=== PATIENT | female | born 1940 | race African-American/Black ===

== ENCOUNTER 2016-12-22 14:42 | Inpatient (IN) | payer OTHER ==
[2016-12-22 15:03] VITALS: BMI 39.8
[2016-12-22] MEDS ORDERED: ONDANSETRON 4 MG/2 ML VIAL IVPUSH ONE ×3 (15:27→21:09)
[2016-12-22] MEDS ORDERED: morphine CARPU-JECT 2 MG/1 ML DISP.SYRIN IVPUSH ONE ×2 (15:27→17:30)
[2016-12-22] MEDS ORDERED: SODIUM CHLORIDE 1,000 ML IV STA ×2 (15:27→17:31)
[2016-12-22] MEDS ORDERED: PANTOPRAZOLE SODIUM 40 MG in SODIUM CHLORIDE 100 ML IVPB ONE (15:27)
[2016-12-22] MEDS ORDERED: PANTOPRAZOLE SODIUM 100 ML IVPB ONE (15:32)
[2016-12-22] MEDS ORDERED: morphine CARPU-JECT 2 MG/1 ML DISP.SYRIN ONE ×3 (15:32→17:41)
[2016-12-22] MEDS ORDERED: ONDANSETRON 4 MG/2 ML VIAL ONE ×3 (15:33→21:24)
--- NOTE | 2016-12-22 15:47 | PDOC ---
History of Present Illness <Adilene Mario - Last Filed: 12/23/16 00:24> - General History Source: Patient Exam Limitations: No Limitations - History of Present Illness Travel History: No Initial Comments: 12/22/16 15:51 76-year-old female with history of bladder CA with ileal conduit bag presents with upper abdominal pain that began suddenly today which she describes a sharp cramping sensation with nausea. Patient states is currently on day 7 of 10 of antibiotics secondary to recent diagnosis of urinary tract infection. Patient is also stated her urine appears pink at times within the urostomy bag. Patient states is followed by Dr. Lamberto Gomez who had placed on antibiotics and patient also was told by her home care nurse to stop her Coumadin tonight since her INR level was high yesterday. Patient denies vomiting of blood but states has been vomiting up food particles without chest pain, shortness of breath or fever. Patient denies history of gastritis, GERD PUD but does state history of hiatal and incisional hernias. Patient states last bowel movement was yesterday and denies any decreased flatulence. Timing/Duration: reports: constant Quality: reports: moderate, cramping, sharpness Abdominal Pain Onset Location: reports: epigastric Activities at Onset: reports: none Aggravating Factors: improves with: None Alleviating Factors: improves with: None <Mellisa Waite - Last Filed: 12/25/16 08:11> - General Chief Complaint: Pain, Acute Stated Complaint: ABD PAIN Time Seen by Provider: 12/22/16 15:03 Past History <Adilene Mairo - Last Filed: 12/23/16 00:24> - Travel Traveled outside of the country in the last 30 days: No Close contact w/someone who was outside of country & ill: No - Past Medical History Anemia: No Asthma: No Cancer: Yes (BLADDER) Cardiac Disorders: No CVA: No COPD: No CHF: No Dementia: No Diabetes: Yes GI Disorders: Yes (GERD) Disorders: Yes (BLADDER CA) HTN: Yes Hypercholesterolemia: No Liver Disease: No Seizures: No Thyroid Disease: No - Surgical History Abdominal Surgery: No Appendectomy: No Cardiac Surgery: No Cholecystectomy: Yes Lung Surgery: No Neurologic Surgery: No Orthopedic Surgery: Yes (R KNEE REPLACEMENT) - Psycho/Social/Smoking Cessation Hx Anxiety: No Suicidal Ideation: No Smoking Status: No Smoking History: Never smoked Have you smoked in the past 12 months: No Number of Cigarettes Smoked Daily: 0 Hx Alcohol Use: No Drug/Substance Use Hx: No Substance Use Type: None Hx Substance Use Treatment: No Patient Lives Alone: No Lives with/in: home health aide <RavindraOlney - Last Filed: 12/25/16 08:11> - Past Medical History Allergies/Adverse Reactions: Allergies Allergy/AdvReac Type Severity Reaction Status Date / Time latex Allergy Verified 12/22/16 15:00 Home Medications: Ambulatory Orders Insulin NPL/Insulin Lispro [Humalog Mix 75-25 Pen] 30 unit SQ AM 05/04/13 Latanoprost 0.005% Eye Drops [Xalatan 0.005% Eye Drops -] 1 drop OU HS 06/25/14 Lidocaine 2% Jelly [Xylocaine 2% Jelly -] 1 applic TP BID PRN #1 tube 10/16/15 Insulin Lispro Protamin/Lispro [Humalog Mix 75-25 Vial] 27 unit SQ DAILY Morphine Injection - [Morphine Injection 2 mg/1 mL -] 2 mg IVPUSH Q4H PRN #0 mg MDD 8 12/23/16 Ondansetron Injection [Zofran Injection] 4 mg IVPUSH Q6H PRN #0 vial 12/23/16 Sodium Chloride [Normal Saline -] 1,000 ml IV ASDIR #1000 ml 12/23/16 Abd/GI Specific PMHX - Complaint Specific PMHX Gall Bladder Disease: Yes (cholecystectomy) <RavindraMellisa Last Filed: 12/25/16 08:11> Review of Systems - Review of Systems Able to Perform ROS?: Yes Constitutional: No: Symptoms Reported HEENTM: No: Symptoms Reported Respiratory: No: Symptoms reported Cardiac (ROS): No: Symptoms Reported ABD/GI: Yes: Nausea, Vomiting, Abdominal cramping : Yes: Hematuria Musculoskeletal: No: Symptoms Reported Integumentary: No: Symptoms Reported Neurological: No: Symptoms reported Endocrine: No: Symptoms Reported Hematologic/Lymphatic: Yes: Easy Bleeding <Mellisa Waite - Last Filed: 12/25/16 08:11> *Physical Exam - Vital Signs Last Vital Signs Temp Pulse Resp BP Pulse Ox 98 F 87 18 130/68 95 05/04/17 15:01 12/22/16 20:35 12/22/16 20:35 12/22/16 20:35 12/22/16 20:35 <Adilene Mario - Last Filed: 12/23/16 00:24> - Vital Signs Last Vital Signs Temp Pulse Resp BP Pulse Ox 98 F 98 H 24 182/101 98 12/22/16 15:01 12/22/16 15:01 12/22/16 15:01 12/22/16 15:01 12/22/16 15:01 - Physical Exam General Appearance: Yes: Nourished, Appropriately Dressed. No: Apparent Distress HEENT: positive: EOMI, NORMA. negative: Pale Conjunctivae Neck: positive: Supple Respiratory/Chest: positive: Lungs Clear, Normal Breath Sounds. negative: Respiratory Distress, Accessory Muscle Use Cardiovascular: positive: Regular Rhythm, Regular Rate. negative: Murmur Gastrointestinal/Abdominal: positive: Normal Bowel Sounds, Soft, Tenderness ( epigastric ), Other (noted [place] brownish urine in urostomy bag. Stoma intact. Surrounding in intact. No tenderness at stoma site) Musculoskeletal: negative: CVA Tenderness Extremity: positive: Normal Capillary Refill. negative: Pedal Edema Integumentary: positive: Normal Color, Warm, Moist Neurologic: positive: Normal Mood/Affect, Motor Strength 5/5 <Mellisa Waite - Last Filed: 12/25/16 08:11> Heart Score/ECG Review - QRS Widened: RBBB (rate 87) <Mellisa Waite - Last Filed: 12/25/16 08:11> ED Treatment Course - LABORATORY CBC & Chemistry Diagram: 12/22/16 15:30 12/22/16 17:50 - ADDITIONAL ORDERS Additional order review: Laboratory Results 12/22/16 12/22/16 12/22/16 17:50 17:50 16:20 INR Sodium 141 Potassium 5.6 H Chloride 106 Carbon Dioxide 28 Anion Gap 7 L BUN 24 H Creatinine 1.4 H Creat Clearance w eGFR 36.46 Random Glucose 195 H D Lactic Acid 1.058 Calcium 8.4 L Total Bilirubin 0.8 D AST 20 ALT 22 Alkaline Phosphatase 161 H Creatine Kinase Troponin I Total Protein 6.7 Albumin 3.2 L Lipase Urine Color Yellow Urine Appearance Slcloudy Urine pH 7.0 Urine Protein 2+ H Urine Glucose (UA) Negative Urine Ketones Negative Urine Blood 3+ H Urine Nitrite Negative Urine Bilirubin Negative Urine Urobilinogen 2.0 e.u/dl H Ur Leukocyte Esterase Trace H D Urine RBC 1957 Urine WBC 77 Ur Epithelial Cells Rare Urine Bacteria Rare Urine Mucus Rare Blood Type Antibody Screen 12/22/16 12/22/16 12/22/16 15:30 15:30 15:30 INR Sodium Cancelled Potassium Cancelled Chloride Cancelled Carbon Dioxide Cancelled Anion Gap Cancelled BUN Cancelled Creatinine Cancelled Creat Clearance w eGFR Cancelled Random Glucose Cancelled Lactic Acid 2.495 H* Calcium Cancelled Total Bilirubin Cancelled AST Cancelled ALT Cancelled Alkaline Phosphatase Cancelled Creatine Kinase Cancelled Troponin I Cancelled Total Protein Cancelled Albumin Cancelled Lipase Cancelled Urine Color Urine Appearance Urine pH Urine Protein Urine Glucose (UA) Urine Ketones Urine Blood Urine Nitrite Urine Bilirubin Urine Urobilinogen Ur Leukocyte Esterase Urine RBC Urine WBC Ur Epithelial Cells Urine Bacteria Urine Mucus Blood Type O POSITIVE Antibody Screen Negative 12/22/16 15:30 INR 3.50 H D Sodium Potassium Chloride Carbon Dioxide Anion Gap BUN Creatinine Creat Clearance w eGFR Random Glucose Lactic Acid Calcium Total Bilirubin AST ALT Alkaline Phosphatase Creatine Kinase Troponin I Total Protein Albumin Lipase Urine Color Urine Appearance Urine pH Urine Protein Urine Glucose (UA) Urine Ketones Urine Blood Urine Nitrite Urine Bilirubin Urine Urobilinogen Ur Leukocyte Esterase Urine RBC Urine WBC Ur Epithelial Cells Urine Bacteria Urine Mucus Blood Type Antibody Screen 12/22/16 15:30 RBC 4.28 MCV 88.5 MCHC 31.8 L RDW 15.1 MPV 10.5 Neutrophils % 78.7 D Lymphocytes % 14.8 D Monocytes % 5.2 Eosinophils % 0.9 Basophils % 0.4 - RADIOLOGY Radiology Studies Ordered: Category Date Time Status ABDOMEN & PELVIS CT W/O CONTR [CT] Stat CT Scan 12/22/16 19:28 Completed - Medications Given in the ED: ED Medications Discontinued Medications Generic Name Dose Route Start Last Admin Trade Name Freq PRN Reason Stop Dose Admin Acetaminophen 1,000 mg 12/22/16 17:32 12/22/16 17:40 Ofirmev Injection - IVPB 12/22/16 17:33 1,000 mg ONCE ONE Administration Hydromorphone HCl 0.5 mg 12/22/16 21:09 12/22/16 21:20 Dilaudid Injection - IVPUSH 12/22/16 21:10 0.5 mg ONCE ONE Administration Pantoprazole Sodium 40 mg/ 100 mls @ 200 mls/hr 12/22/16 15:27 12/22/16 15:40 Sodium Chloride IVPB 12/22/16 15:56 200 mls/hr ONCE ONE Administration Sodium Chloride 1,000 mls @ 1,000 mls/hr 12/22/16 15:27 12/22/16 15:40 Normal Saline - IV 12/22/16 16:26 1,000 mls/hr ASDIR STA Administration Sodium Chloride 1,000 mls @ 1,000 mls/hr 12/22/16 17:31 12/22/16 17:40 Normal Saline - IV 12/22/16 18:30 1,000 mls/hr ASDIR STA Administration Ceftriaxone Sodium 1 gm/ 50 mls @ 100 mls/hr 12/22/16 17:36 12/22/16 18:10 Dextrose IVPB 12/22/16 18:05 100 mls/hr ONCE ONE Administration Morphine Sulfate 2 mg 12/22/16 15:27 12/22/16 15:55 Morphine Injection - IVPUSH 12/22/16 15:28 2 mg ONCE ONE Administration Morphine Sulfate 2 mg 12/22/16 17:30 12/22/16 17:40 Morphine Injection - IVPUSH 12/22/16 17:31 2 mg ONCE ONE Administration Morphine Sulfate 4 mg 12/22/16 19:29 12/22/16 19:35 Morphine Injection - IVPUSH 12/22/16 19:30 4 mg ONCE ONE Administration Ondansetron HCl 4 mg 12/22/16 15:27 12/22/16 15:40 Zofran Injection IVPUSH 12/22/16 15:28 4 mg ONCE ONE Administration Ondansetron HCl 4 mg 12/22/16 16:16 12/22/16 16:20 Zofran Injection IVPUSH 12/22/16 16:17 4 mg ONCE ONE Administration Ondansetron HCl 4 mg 12/22/16 21:09 12/22/16 21:20 Zofran Injection IVPUSH 12/22/16 21:10 4 mg ONCE ONE Administration <Adilene Mario D - Last Filed: 12/23/16 00:24> - LABORATORY CBC & Chemistry Diagram: 12/23/16 10:10 12/23/16 10:10 - RADIOLOGY Radiology Studies Ordered: Category Date Time Status ABDOMEN & PELVIS CT WITH CONTR [CT] Stat CT Scan 12/22/16 15:27 Ordered CHEST X-RAY PORTABLE* [RAD] Stat Radiology 12/22/16 15:27 Ordered <Mellisa Waite - Last Filed: 12/25/16 08:11> Medical Decision Making - Medical Decision Making 12/22/16 16:08 Patient with acute onset of epigastric sharp pain associated nausea and vomiting since this morning. Patient denies any GI disorders such as gastritis, GERD or PUD. Patient recently treated for UTI as diagnosed via a urostomy bag. Patient also on Coumadin, which she was told yesterday to hold her Coumadin tonight secondary to elevated INR levels. Patient on exam had bowel sounds 4 but does have history as per chart of constipation. Patient consented gastritis/GERD/ incarcerated hernia. Patient ordered for labs, antiemetics, analgesics, PPIs, and abdominal CT with contrast. Patient also ordered for urine via urostomy bag with culture. 12/22/16 17:35 Laboratory Tests 12/22/16 12/22/16 12/22/16 15:30 15:30 15:30 WBC 6.0 D Hgb 12.1 D Hct 37.9 D MCHC 31.8 L Plt Count 157 Neutrophils % 78.7 D INR 3.50 H D Lactic Acid Urine Ketones Urine Nitrite Ur Leukocyte Esterase Blood Type O POSITIVE Antibody Screen Negative 12/22/16 12/22/16 15:30 16:20 WBC Hgb Hct MCHC Plt Count Neutrophils % INR Lactic Acid 2.495 H* Urine Ketones Pending Urine Nitrite Pending Ur Leukocyte Esterase Pending Blood Type Antibody Screen Comp has hemolyzed. Patient ordered for second bag of IV fluids along with a repeat lactic acid. Urine pending. I will order ceftriaxone IV 12/22/16 18:48 Laboratory Tests 12/22/16 16:20 Urine Protein 2+ H Urine Blood 3+ H Urine Nitrite Negative Ur Leukocyte Esterase Trace H D Urine RBC 1957 Urine WBC 77 <Mellisa Waite - Last Filed: 12/25/16 08:11> *DC/Admit/Observation/Transfer - Discharge Dispostion Admit: Yes <Adilene Mario Last Filed: 12/23/16 00:24> <Mellisa Waite - Last Filed: 12/25/16 08:11> Diagnosis at time of Disposition: Bowel obstruction Qualifiers: Intestinal obstruction type: unspecified Qualified Code(s): K56.60 - Unspecified intestinal obstruction DM2 (diabetes mellitus, type 2) Qualifiers: Diabetes mellitus complication status: without complication Diabetes mellitus group home insulin use: without group home use Qualified Code(s): E11.9 - Type 2 diabetes mellitus without complications Morbid obesity Qualifiers: Obesity type: unspecified obesity type Qualified Code(s): E66.01 - Morbid ( severe) obesity due to excess calories - Discharge Dispostion Condition at time of disposition: Stable
[2016-12-22 16:00] LABS: BASOPHIL 0.4 % (0-2.0); EOSINOPHIL 0.9 % (0-4.5); MCH 28.1 pg (25.7-33.7); MCHC 31.8 g/dl (32.0-36.0); MEAN CELL VOLUME 88.5 fl (80-96); MEAN PLT VOLUME 10.5 fl (7.5-11.1); NEUTROPHILS 78.7 % (42.8-82.8); PLATELET COUNT 157 K/MM3 (134-434); RDW 15.1 % (11.6-15.6)
[2016-12-22 16:32] LABS: INR 3.5 (0.82-1.09); PROTHROMBIN TIME (PATIENT) 39.5 SEC (9.98-11.88)
[2016-12-22 17:06] LABS: URINE APPEARANCE SLCLOUDY; URINE BILIRUBIN NEGATIVE (NEGATIVE); URINE COLOR YELLOW; URINE GLUCOSE (UA) NEGATIVE (NEGATIVE); URINE KETONE NEGATIVE (NEGATIVE); URINE NITRITE NEGATIVE (NEGATIVE); URINE UROBILINOGEN 2.0 E.U/dl E.U./dl (0.2-1.0)
[2016-12-22] MEDS ORDERED: ACETAMINOPHEN 1000 MG/100 ML VIAL (NON FORMULARY) IVPB ONE (17:32)
[2016-12-22] MEDS ORDERED: CEFTRIAXONE 1 GM in DEXTROSE 5%-WATER - 50 ML IVPB ONE (17:36)
[2016-12-22] MEDS ORDERED: ACETAMINOPHEN INJECTION 100 ML IVPB ONE (17:41)
[2016-12-22] MEDS ORDERED: CEFTRIAXONE 50 ML ONE (17:41)
[2016-12-22 18:10] LABS: URINE BLOOD 3+ (NEGATIVE); URINE LEUK ESTERASE TRACE (NEGATIVE); URINE PROTEIN 2+ (NEGATIVE)
[2016-12-22 18:13] LABS: URINE BACTERIA RARE /hpf (NONE SEEN); URINE MUCUS RARE; URINE RBC 1957 /hpf (0-3); URINE WBC 77 /hpf (3-5)
[2016-12-22 19:06] LABS: ALBUMIN 3.2 g/dl (3.4-5.0); ANION GAP 7 (8-16); CALCIUM 8.4 mg/dL (8.5-10.1); CO2 28 mmol/L (21-32); GLUCOSE,RANDOM 195 mg/dL (74-106)
[2016-12-22 19:09] LABS: ALK PHOS 161 U/L (45-117); BILIRUBIN,TOTAL 0.8 mg/dL (0.2-1.0); CREATININE 1.4 mg/dL (0.55-1.02); SGOT/AST 20 U/L (15-37); SGPT/ALT 22 U/L (12-78); TOT PROT 6.7 g/dl (6.4-8.2)
[2016-12-22] MEDS ORDERED: morphine CARPU-JECT 4 MG/1 ML DISP.SYRIN IVPUSH ONE (19:29)
[2016-12-22] MEDS ORDERED: morphine CARPU-JECT 4 MG/1 ML DISP.SYRIN ONE (19:35)
--- NOTE | 2016-12-22 20:01 | PDOC ---
*Physical Exam - Vital Signs Last Vital Signs Temp Pulse Resp BP Pulse Ox 98 F 98 H 24 182/101 98 12/22/16 15:01 12/22/16 15:01 12/22/16 15:01 12/22/16 15:01 12/22/16 15:01 ED Treatment Course - LABORATORY CBC & Chemistry Diagram: 12/23/16 10:10 12/23/16 10:10 - ADDITIONAL ORDERS Additional order review: Laboratory Results 12/22/16 12/22/16 12/22/16 17:50 17:50 16:20 INR Sodium 141 Potassium 5.6 H Chloride 106 Carbon Dioxide 28 Anion Gap 7 L BUN 24 H Creatinine 1.4 H Creat Clearance w eGFR 36.46 Random Glucose 195 H D Lactic Acid 1.058 Calcium 8.4 L Total Bilirubin 0.8 D AST 20 ALT 22 Alkaline Phosphatase 161 H Creatine Kinase Troponin I Total Protein 6.7 Albumin 3.2 L Lipase Urine Color Yellow Urine Appearance Slcloudy Urine pH 7.0 Urine Protein 2+ H Urine Glucose (UA) Negative Urine Ketones Negative Urine Blood 3+ H Urine Nitrite Negative Urine Bilirubin Negative Urine Urobilinogen 2.0 e.u/dl H Ur Leukocyte Esterase Trace H D Urine RBC 1957 Urine WBC 77 Ur Epithelial Cells Rare Urine Bacteria Rare Urine Mucus Rare Blood Type Antibody Screen 12/22/16 12/22/16 12/22/16 15:30 15:30 15:30 INR Sodium Cancelled Potassium Cancelled Chloride Cancelled Carbon Dioxide Cancelled Anion Gap Cancelled BUN Cancelled Creatinine Cancelled Creat Clearance w eGFR Cancelled Random Glucose Cancelled Lactic Acid 2.495 H* Calcium Cancelled Total Bilirubin Cancelled AST Cancelled ALT Cancelled Alkaline Phosphatase Cancelled Creatine Kinase Cancelled Troponin I Cancelled Total Protein Cancelled Albumin Cancelled Lipase Cancelled Urine Color Urine Appearance Urine pH Urine Protein Urine Glucose (UA) Urine Ketones Urine Blood Urine Nitrite Urine Bilirubin Urine Urobilinogen Ur Leukocyte Esterase Urine RBC Urine WBC Ur Epithelial Cells Urine Bacteria Urine Mucus Blood Type O POSITIVE Antibody Screen Negative 12/22/16 15:30 INR 3.50 H D Sodium Potassium Chloride Carbon Dioxide Anion Gap BUN Creatinine Creat Clearance w eGFR Random Glucose Lactic Acid Calcium Total Bilirubin AST ALT Alkaline Phosphatase Creatine Kinase Troponin I Total Protein Albumin Lipase Urine Color Urine Appearance Urine pH Urine Protein Urine Glucose (UA) Urine Ketones Urine Blood Urine Nitrite Urine Bilirubin Urine Urobilinogen Ur Leukocyte Esterase Urine RBC Urine WBC Ur Epithelial Cells Urine Bacteria Urine Mucus Blood Type Antibody Screen 12/22/16 15:30 RBC 4.28 MCV 88.5 MCHC 31.8 L RDW 15.1 MPV 10.5 Neutrophils % 78.7 D Lymphocytes % 14.8 D Monocytes % 5.2 Eosinophils % 0.9 Basophils % 0.4 - Medications Given in the ED: ED Medications Discontinued Medications Generic Name Dose Route Start Last Admin Trade Name Beatrice PRN Reason Stop Dose Admin Acetaminophen 1,000 mg 12/22/16 17:32 12/22/16 17:40 Ofirmev Injection - IVPB 12/22/16 17:33 1,000 mg ONCE ONE Administration Pantoprazole Sodium 40 mg/ 100 mls @ 200 mls/hr 12/22/16 15:27 12/22/16 15:40 Sodium Chloride IVPB 12/22/16 15:56 200 mls/hr ONCE ONE Administration Sodium Chloride 1,000 mls @ 1,000 mls/hr 12/22/16 15:27 12/22/16 15:40 Normal Saline - IV 12/22/16 16:26 1,000 mls/hr ASDIR STA Administration Sodium Chloride 1,000 mls @ 1,000 mls/hr 12/22/16 17:31 12/22/16 17:40 Normal Saline - IV 12/22/16 18:30 1,000 mls/hr ASDIR STA Administration Ceftriaxone Sodium 1 gm/ 50 mls @ 100 mls/hr 12/22/16 17:36 12/22/16 18:10 Dextrose IVPB 12/22/16 18:05 100 mls/hr ONCE ONE Administration Morphine Sulfate 2 mg 12/22/16 15:27 12/22/16 15:55 Morphine Injection - IVPUSH 12/22/16 15:28 2 mg ONCE ONE Administration Morphine Sulfate 2 mg 12/22/16 17:30 12/22/16 17:40 Morphine Injection - IVPUSH 12/22/16 17:31 2 mg ONCE ONE Administration Morphine Sulfate 4 mg 12/22/16 19:29 12/22/16 19:35 Morphine Injection - IVPUSH 12/22/16 19:30 4 mg ONCE ONE Administration Ondansetron HCl 4 mg 12/22/16 15:27 12/22/16 15:40 Zofran Injection IVPUSH 12/22/16 15:28 4 mg ONCE ONE Administration Ondansetron HCl 4 mg 12/22/16 16:16 12/22/16 16:20 Zofran Injection IVPUSH 12/22/16 16:17 4 mg ONCE ONE Administration Medical Decision Making - Medical Decision Making 12/22/16 19:58 76 yo F with h/o bladder ca, conduit, hernias, obesity, prior cholecystectomy here with /co epigastric pain discomfort. has had several days. no n/v no diarrhea. has had mild blood in the urine from the conduit. no other complaints. no sob. states has had a stress test many years ago. on exam. pt awake, alert, NAD. lungs CTAB no wheeze. heart RRR no m/r/g. abd obese, epigastric LUQ ttp. ext wwp ostomy pink with urine. differential : atypical angina, PUD, pancreatitis, colitis, uti resistance, plan labs ekg, lipase ct a/p . cardiac workup. agree with assessment and plan by PA. 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
[2016-12-22] MEDS ORDERED: HYDROmorphone HCL CARPU-JECT 1 MG/1 ML DISP.SYRIN IVPUSH ONE (21:09)
[2016-12-22] MEDS ORDERED: HYDROmorphone HCL CARPU-JECT 1 MG/1 ML DISP.SYRIN ONE (21:22)
--- NOTE | 2016-12-22 23:57 | HP ---
CHIEF COMPLAINT: Abdominal Pain, Nausea PCP: HISTORY OF PRESENT ILLNESS: This is a 76 y/o female with a past medical history of Bladder Ca, A-fib (on Coumadin), HTN, DM, Parkinsons, Morbid Obesity. Who presents to the emergency department with abdominal pain, nausea, vomiting x today. Patient reports the pain as sharp in nature. Her daughter reports the patient having several episodes of non-bilious vomiting, undigested food. Patient reports her last BM was yesterday soft-brown. Patient reports having a decreased appetite for several days. Patient reports being treated for UTI day 7 of the 10 day course. She reports having shingles in the past but still has post herpetic pain to her lower lumbar. Patient denies fever, chills, cough, dizziness, SOB, CP, diarrhea ER course was notable for: (1) CTAP- dilated small bowel loops (2) Lactic Acid 2.4~ 1.0 (3) INR 3.5 Recent Travel: None PAST MEDICAL HISTORY: See HPI PAST SURGICAL HISTORY: Social History: Smoking: Never Alcohol: None Drugs: None Family History: Allergies latex Allergy (Verified 12/22/16 15:00) HOME MEDICATIONS: Home Medications Medication Instructions Recorded Acetaminophen [Tylenol 1,000 mg PO TID #20 tablet 05/04/13 .Extra-Strength -] Ascorbic Acid [Vitamin C] 500 mg PO BID 05/04/13 Calcium Citrate/Vitamin D3 1 each PO BID 05/04/13 [Citracal + D Caplet] Ergocalciferol (Vitamin D2) 50,000 unit PO WEEKLY 05/04/13 [Vitamin D] Insulin NPL/Insulin Lispro 30 unit SQ AM 05/04/13 [Humalog Mix 75-25 Pen] Lisinopril [Prinivil] 10 mg PO DAILY 05/04/13 Nitrofurantoin [Furadantin] 100 mg PO DAILY 05/04/13 Omeprazole 40 mg PO DAILY 05/04/13 Pregabalin [Lyrica] 50 mg PO BID 05/04/13 Warfarin Na [Coumadin -] 2.5 mg PO DAILY 05/04/13 Latanoprost 0.005% Eye Drops 1 drop OU HS 06/25/14 [Xalatan 0.005% Eye Drops -] Sulfamethoxazole/Trimethoprim 1 each PO BID #30 tablet 07/02/14 [Bactrim DS -] Lidocaine 2% Jelly [Xylocaine 2% 1 applic TP BID PRN #1 tube 10/16/15 Jelly -] Insulin Lispro Protamin/Lispro 27 unit SQ DAILY 12/22/16 [Humalog Mix 75-25 Vial] Iron 18 mg PO DAILY 12/22/16 Multivitamin [Poly-Vitamin] 1 each PO DAILY 12/22/16 REVIEW OF SYSTEMS CONSTITUTIONAL: Absent: fever, chills, diaphoresis, generalized weakness, malaise, loss of appetite, weight change HEENT: Absent: rhinorrhea, nasal congestion, throat pain, throat swelling, difficulty swallowing, mouth swelling, ear pain, eye pain, visual changes CARDIOVASCULAR: Absent: chest pain, syncope, palpitations, irregular heart rate, lightheadedness , peripheral edema RESPIRATORY: Absent: cough, shortness of breath, dyspnea with exertion, orthopnea, wheezing, stridor, hemoptysis GASTROINTESTINAL: abdominal pain, nausea Absent: abdominal distension, abdominal pain, vomiting, diarrhea, constipation, melena, hematochezia GENITOURINARY: Absent: dysuria, frequency, urgency, hesitancy, hematuria, flank pain, genital pain MUSCULOSKELETAL: Absent: myalgia, arthralgia, joint swelling, back pain, neck pain SKIN: Absent: rash, itching, pallor HEMATOLOGIC/IMMUNOLOGIC: Absent: easy bleeding, easy bruising, lymphadenopathy, frequent infections ENDOCRINE: Absent: unexplained weight gain, unexplained weight loss, heat intolerance, cold intolerance NEUROLOGIC: Absent: headache, focal weakness or paresthesias, dizziness, unsteady gait, seizure, mental status changes, bladder or bowel incontinence PSYCHIATRIC: Absent: anxiety, depression, suicidal or homicidal ideation, hallucinations. PHYSICAL EXAMINATION Vital Signs - 24 hr 12/22/16 12/22/16 15:01 20:35 Temperature 98 F Pulse Rate 98 H Pulse Rate [ 87 Apical] Respiratory 24 18 Rate Blood Pressure 182/101 Blood Pressure 130/68 [Left Arm] O2 Sat by Pulse 98 95 Oximetry (%) GENERAL: Awake, alert, and fully oriented, in no acute distress. HEAD: Normal with no signs of trauma. EYES: Pupils equal, round and reactive to light, extraocular movements intact, sclera anicteric, conjunctiva clear. No lid lag. EARS, NOSE, THROAT: Ears normal, nares patent, oropharynx clear without exudates. Dry mucous membranes. NECK: Normal range of motion, supple without lymphadenopathy, JVD, or masses. LUNGS: Breath sounds equal, clear to auscultation bilaterally. No wheezes, and no crackles. No accessory muscle use. HEART: Regular rate and rhythm, normal S1 and S2 without murmur, rub or gallop. ABDOMEN: Soft, epigastric tenderness, distended, hypoactive bowel sounds, Ileal Conduit to right mid abdomen with brownish-orange urine in pouchNo guarding, no rebound, no masses. No hepatomegaly or splenomegaly. MUSCULOSKELETAL: Normal range of motion at all joints. No bony deformities or tenderness. No CVA tenderness. UPPER EXTREMITIES: 2+ pulses, warm, well-perfused. No cyanosis. No clubbing. No peripheral edema. LOWER EXTREMITIES: 2+ pulses, warm, well-perfused. No calf tenderness. +1 pitting R>L peripheral edema. NEUROLOGICAL: Cranial nerves II-XII intact. Normal speech.Gait not observed. PSYCHIATRIC: Cooperative. Good eye contact. Appropriate mood and affect. SKIN: Warm, dry, normal turgor, no rashes or lesions noted, normal capillary refill. Laboratory Results - last 24 hr 3 12/22/16 12/22/16 12/22/16 15:30 15:30 15:30 WBC 6.0 D RBC 4.28 Hgb 12.1 D Hct 37.9 D MCV 88.5 MCHC 31.8 L RDW 15.1 Plt Count 157 MPV 10.5 Neutrophils % 78.7 D Lymphocytes % 14.8 D Monocytes % 5.2 Eosinophils % 0.9 Basophils % 0.4 INR 3.50 H D Sodium Cancelled Potassium Cancelled Chloride Cancelled Carbon Dioxide Cancelled Anion Gap Cancelled BUN Cancelled Creatinine Cancelled Creat Clearance w eGFR Cancelled Random Glucose Cancelled Lactic Acid Calcium Cancelled Total Bilirubin Cancelled AST Cancelled ALT Cancelled Alkaline Phosphatase Cancelled Creatine Kinase Cancelled Troponin I Cancelled Total Protein Cancelled Albumin Cancelled Lipase Cancelled Urine Color Urine Appearance Urine pH Urine Protein Urine Glucose (UA) Urine Ketones Urine Blood Urine Nitrite Urine Bilirubin Urine Urobilinogen Ur Leukocyte Esterase Urine RBC Urine WBC Ur Epithelial Cells Urine Bacteria Urine Mucus Blood Type Antibody Screen 3 12/22/16 12/22/16 12/22/16 15:30 15:30 16:20 WBC RBC Hgb Hct MCV MCHC RDW Plt Count MPV Neutrophils % Lymphocytes % Monocytes % Eosinophils % Basophils % INR Sodium Potassium Chloride Carbon Dioxide Anion Gap BUN Creatinine Creat Clearance w eGFR Random Glucose Lactic Acid 2.495 H* Calcium Total Bilirubin AST ALT Alkaline Phosphatase Creatine Kinase Troponin I Total Protein Albumin Lipase Urine Color Yellow Urine Appearance Slcloudy Urine pH 7.0 Urine Protein 2+ H Urine Glucose (UA) Negative Urine Ketones Negative Urine Blood 3+ H Urine Nitrite Negative Urine Bilirubin Negative Urine Urobilinogen 2.0 e.u/dl H Ur Leukocyte Esterase Trace H D Urine RBC 1957 Urine WBC 77 Ur Epithelial Cells Rare Urine Bacteria Rare Urine Mucus Rare Blood Type O POSITIVE Antibody Screen Negative 3 12/22/16 12/22/16 17:50 17:50 WBC RBC Hgb Hct MCV MCHC RDW Plt Count MPV Neutrophils % Lymphocytes % Monocytes % Eosinophils % Basophils % INR Sodium 141 Potassium 5.6 H Chloride 106 Carbon Dioxide 28 Anion Gap 7 L BUN 24 H Creatinine 1.4 H Creat Clearance w eGFR 36.46 Random Glucose 195 H D Lactic Acid 1.058 Calcium 8.4 L Total Bilirubin 0.8 D AST 20 ALT 22 Alkaline Phosphatase 161 H Creatine Kinase Troponin I Total Protein 6.7 Albumin 3.2 L Lipase Urine Color Urine Appearance Urine pH Urine Protein Urine Glucose (UA) Urine Ketones Urine Blood Urine Nitrite Urine Bilirubin Urine Urobilinogen Ur Leukocyte Esterase Urine RBC Urine WBC Ur Epithelial Cells Urine Bacteria Urine Mucus Blood Type Antibody Screen ASSESSMENT/PLAN: This is a 76 y/o female with a past medical history of Bladder Ca, HTN, DM, Parkinson's Morbid Obesity. Who presents to the ED for Abdominal Pain, N/V. Admitted M/S for Bowel Obstruction for further evaluation of their emergent condition. Plan 1. GI: Bowel Obstruction/Abdominal Pain/Nausea & Vomiting - Likely secondary to Umbilical Hernia - CTAP- reviewed - Appreciate Surgical Consult - NGT placement for decompression - Repeat CXR for NGT placement-pending - Lactic Acid 2.4~1.0 after NS Bolus - No leukocytosis, afebrile - Continue to monitor CBC, BMP - Monitor vitals - NPO - Gentle IVF - Zofran prn - Pain Mgmt Morphine prn 2. Elevated INR - Likely secondary to medication - Hold Coumadin - Series INRs 3. Card: HTN - Monitor BP - Continue lisinopril - Monitor renal function 4. Parkinson's - Fall precautions - Monitor and treat for interventions accordingly 5. Endocrine: DM - Uncontrolled - BGMs - ISS for tighter glycemic control - HgbA1C in am 6. Severe Obesity - RD Consult - Reduced Caloric Intake 7. FEN - NS@60cc/hr - Replete lytes prn - NPO DVT/PPI Prophylaxis - OOB - SCDs - Hold ACs 2/2 Coumadin , Elevated INR Code Status: Full Code Problem List - Problem (1) Bowel obstruction Code(s): K56.60 - UNSPECIFIED INTESTINAL OBSTRUCTION Qualifiers: Intestinal obstruction type: unspecified Qualified Code(s): K56.60 - Unspecified intestinal obstruction (2) DM2 (diabetes mellitus, type 2) Code(s): E11.9 - TYPE 2 DIABETES MELLITUS WITHOUT COMPLICATIONS Qualifiers: Diabetes mellitus complication status: without complication Diabetes mellitus residential insulin use: without rat exterminator use Qualified Code(s): E11.9 - Type 2 diabetes mellitus without complications (3) Elevated INR Code(s): R79.1 - ABNORMAL COAGULATION PROFILE (4) Hypoglycemia Code(s): E16.2 - HYPOGLYCEMIA, UNSPECIFIED (5) Morbid obesity Code(s): E66.01 - MORBID (SEVERE) OBESITY DUE TO EXCESS CALORIES Qualifiers: Obesity type: unspecified obesity type Qualified Code(s): E66.01 - Morbid (severe) obesity due to excess calories (6) Bladder cancer Code(s): C67.9 - MALIGNANT NEOPLASM OF BLADDER, UNSPECIFIED (7) HTN (hypertension) Code(s): I10 - ESSENTIAL (PRIMARY) HYPERTENSION (8) Parkinson disease Code(s): G20 - PARKINSON'S DISEASE (9) DVT (deep venous thrombosis) Code(s): I82.409 - ACUTE EMBOLISM AND THOMBOS UNSP DEEP VN UNSP LOWER EXTREMITY (10) DVT prophylaxis Code(s): BHD6398 - Visit type - Emergency Visit Emergency Visit: Yes ED Registration Date: 12/22/16 Care time: The patient presented to the Emergency Department on the above date and was hospitalized for further evaluation of their emergent condition. - New Patient This patient is new to me today: Yes Date on this admission: 12/22/16 - Critical Care Critical Care patient: No
[2016-12-23] MEDS ORDERED: ONDANSETRON 4 MG/2 ML VIAL IVPUSH PRN (01:49)
[2016-12-23] MEDS ORDERED: FAMOTIDINE 20 MG/50 ML IVPB 50 ML IVPB ONE ×2 (01:49→02:09)
[2016-12-23] MEDS ORDERED: morphine CARPU-JECT 2 MG/1 ML DISP.SYRIN IVPUSH PRN (01:51)
[2016-12-23] MEDS ORDERED: SODIUM CHLORIDE 1,000 ML IV SCH ×2 (02:00→12:33)
[2016-12-23] MEDS ORDERED: ONDANSETRON 4 MG/2 ML VIAL ONE (02:09)
[2016-12-23] MEDS ORDERED: TETRACAINE/BENZOCAINE/BUTAMBEN 20 GM SPR TP ONE (02:37)
[2016-12-23] MEDS ORDERED: LIDOCAINE HCL 2% JELLY (5 ML/TUBE) ONE (03:15)
[2016-12-23] MEDS ORDERED: morphine CARPU-JECT 2 MG/1 ML DISP.SYRIN ONE (07:08)
[2016-12-23 10:38] LABS: BASOPHIL 0.1 % (0-2.0); EOSINOPHIL 0.7 % (0-4.5); MCH 28.6 pg (25.7-33.7); MCHC 31.6 g/dl (32.0-36.0); MEAN CELL VOLUME 90.7 fl (80-96); MEAN PLT VOLUME 9.7 fl (7.5-11.1); NEUTROPHILS 86.8 % (42.8-82.8); PLATELET COUNT 118 K/MM3 (134-434); RDW 15.4 % (11.6-15.6); WHITE BLOOD COUNT 6.9 K/mm3 (4.0-10.0)
--- NOTE | 2016-12-23 10:57 | EKG ---
Test Reason : Blood Pressure : / mmHG Vent. Rate : 081 BPM Atrial Rate : 081 BPM P-R Int : 134 ms QRS Dur : 116 ms QT Int : 410 ms P-R-T Axes : 055 -27 036 degrees QTc Int : 476 ms NORMAL SINUS RHYTHM INCOMPLETE RIGHT BUNDLE BRANCH BLOCK NONSPECIFIC ST ABNORMALITY ABNORMAL ECG WHEN COMPARED WITH ECG OF 08-AUG-2015 19:48, INCOMPLETE RIGHT BUNDLE BRANCH BLOCK HAS REPLACED RIGHT BUNDLE BRANCH BLOCK Confirmed by AIDE HOPKINS MD ([id number]) on 12/23/2016 10:56:40 AM Referred By: Confirmed By:AIDE HOPKINS MD
[2016-12-23 11:08] LABS: ALBUMIN 2.8 g/dl (3.4-5.0); BILIRUBIN,TOTAL 0.9 mg/dL (0.2-1.0); CALCIUM 7.5 mg/dL (8.5-10.1); COCKROFT - GAULT 47.4385; CREATININE 1.6 mg/dL (0.55-1.02); MAGNESIUM 2.3 mg/dL (1.8-2.4); PHOSPHOROUS 3.2 mg/dL (2.5-4.9); TOT PROT 5.9 g/dl (6.4-8.2)
[2016-12-23 11:14] VITALS: TEMP 98.7
--- NOTE | 2016-12-23 11:31 | CONSULT ---
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 She had an ileal conduit done 12+ years ago @ [facility] [place] for bladder cancer. Currently she got a NGT and output has been 400cc of thin brownish fluid. She feels alot better. Last BM was monday. - History Source History Provided By: Patient Limitations to Obtaining History: No Limitations - Past Medical History Cardio/Vascular: Yes: AFIB, HTN Gastrointestinal: Yes: GERD Musculoskeletal: Yes: Osteoarthritis - Alcohol/Substance Use Hx Alcohol Use: No - Smoking History Smoking history: Never smoked Have you smoked in the past 12 months: No Aproximately how many cigarettes per day: 0 Home Medications - Allergies Allergies/Adverse Reactions: Allergies Allergy/AdvReac Type Severity Reaction Status Date / Time latex Allergy Verified 12/22/16 15:00 - Home Medications Home Medications: Ambulatory Orders Acetaminophen [Tylenol .Extra-Strength -] 1,000 mg PO TID #20 tablet 05/04/13 Ascorbic Acid [Vitamin C] 500 mg PO BID 05/04/13 Calcium Citrate/Vitamin D3 [Citracal + D Caplet] 1 each PO BID 05/04/13 Ergocalciferol (Vitamin D2) [Vitamin D] 50,000 unit PO WEEKLY 05/04/13 Insulin NPL/Insulin Lispro [Humalog Mix 75-25 Pen] 30 unit SQ AM 05/04/13 Lisinopril [Prinivil] 10 mg PO DAILY 05/04/13 Nitrofurantoin [Furadantin] 100 mg PO DAILY 05/04/13 Omeprazole 40 mg PO DAILY 05/04/13 Pregabalin [Lyrica] 50 mg PO BID 05/04/13 Warfarin Na [Coumadin -] 2.5 mg PO DAILY 05/04/13 Latanoprost 0.005% Eye Drops [Xalatan 0.005% Eye Drops -] 1 drop OU HS 06/25/14 Sulfamethoxazole/Trimethoprim [Bactrim DS -] 1 each PO BID #30 tablet 07/02/14 Lidocaine 2% Jelly [Xylocaine 2% Jelly -] 1 applic TP BID PRN #1 tube 10/16/15 Insulin Lispro Protamin/Lispro [Humalog Mix 75-25 Vial] 27 unit SQ DAILY Iron 18 mg PO DAILY 12/22/16 Multivitamin [Poly-Vitamin] 1 each PO DAILY 12/22/16 Family Disease History - Family Disease History Family History: Unremarkable Review of Systems - Review of Systems Constitutional: denies: Chills, Fever Eyes: denies: Blind Spots, Blurred Vision HENT: denies: Difficult Swallowing, Ear Discharge Neck: denies: Decreased ROM, Lumps Cardiovascular: denies: Chest Pain, Edema Respiratory: denies: Cough, Hemoptysis Gastrointestinal: reports: Abdominal Pain, Constipation Genitourinary: reports: Other (urine from ileal conduit) Musculoskeletal: denies: Crepitus, Muscle Pain Integumentary: denies: Blister, Bruising Neurological: denies: Change in LOC, Change in Speech Endocrine: denies: Excessive Sweating, Flushing Hematology/Lymphatic: denies: Easily Bruised, Excessive Bleeding Psychiatric: denies: Altered Sleep Pattern, Anxiety Physical Exam Vital Signs: Vital Signs Temperature 98.7 F 12/23/16 11:14 Pulse Rate 81 12/23/16 11:14 Respiratory Rate 18 12/23/16 11:14 Blood Pressure 110/64 12/23/16 11:14 O2 Sat by Pulse Oximetry (%) 95 12/23/16 11:14 Constitutional: Yes: No Distress, Calm Eyes: Yes: Conjunctiva Clear, EOM Intact HENT: Yes: Atraumatic, Normocephalic Neck: Yes: Supple, Trachea Midline Cardiovascular: Yes: Regular Rate and Rhythm Respiratory: Yes: Regular, CTA Bilaterally Gastrointestinal: Yes: Soft, Abdomen, Obese, Distention (min mild. conduit functioning. hernia palpated and nontender.). No: Tenderness ...Rectal Exam: Yes: Deferred Renal/: No: CVA Tenderness - Left, CVA Tenderness - Right Musculoskeletal: No: Back Pain, Joint Stiffness Extremities: No: Calf Tenderness, Erythema Integumentary: No: Erythema, Rash Wound/Incision: Yes: Clean/Dry, Well Approximated Neurological: Yes: Alert, Oriented Psychiatric: Yes: Alert, Oriented Labs: CBC, BMP 12/23/16 10:10 12/23/16 10:10 Imaging - Results Cat Scan: Report Reviewed, Image Reviewed Problem List - Problems (1) Bowel obstruction Assessment/Plan: pt feels better. no acute abd. given that she possibly has obstruction due to ventral/parastomal hernia with ileal conduit, recommendation would be to transfer to facility where they would be comfortable operating with ileal conduit in place. She may not need operation but at this point it is a possibility. cont ngt for now. if she passes gas and NGT output remains low can remove NGT and initiate diet. please contact her urologist Dr Gomez. Code(s): K56.60 - UNSPECIFIED INTESTINAL OBSTRUCTION Qualifiers: Intestinal obstruction type: unspecified Qualified Code(s): K56.60 - Unspecified intestinal obstruction (2) DM2 (diabetes mellitus, type 2) Code(s): E11.9 - TYPE 2 DIABETES MELLITUS WITHOUT COMPLICATIONS Qualifiers: Diabetes mellitus complication status: without complication Diabetes mellitus longterm insulin use: without medical terminologist use Qualified Code(s): E11.9 - Type 2 diabetes mellitus without complications (3) Morbid obesity Code(s): E66.01 - MORBID (SEVERE) OBESITY DUE TO EXCESS CALORIES Qualifiers: Obesity type: unspecified obesity type Qualified Code(s): E66.01 - Morbid (severe) obesity due to excess calories (4) Parkinson disease Code(s): G20 - PARKINSON'S DISEASE
[2016-12-23 12:28] LABS: MAGNESIUM 2.3 mg/dL (1.8-2.4); TROPONIN I < 0.02 ng/ml (0.00-0.05)
--- NOTE | 2016-12-23 15:45 | DS ---
Physical Exam: SUBJECTIVE: Patient seen and examined at bedside. Feels better after NG tube was placed. OBJECTIVE: Vital Signs Period Temp Pulse Resp BP Sys/Adorno Pulse Ox Last 24 Hr 98.3 F-98.7 F 81-95 16-20 110-145/58-67 95-100 PHYSICAL EXAM GENERAL: The patient is awake, alert, and fully oriented, in no acute distress. HEAD: Normal with no signs of trauma. EYES: PERRL, extraocular movements intact, sclera anicteric, conjunctiva clear. ENT: NB tube to LWS in situ, 400cc's brown fluid in cannister LUNGS: Breath sounds equal, clear to auscultation bilaterally, no wheezes, no crackles, no accessory muscle use. HEART: Irregular. S1, S2 without murmur, rub or gallop. ABDOMEN: Soft, nontender, obese; ileal conduit stoma with huy color urine in bag; stoma is clean, no exudate, no sign of infection; absent bowel sounds EXTREMITIES: 2+ pulses, warm, well-perfused, no edema. NEUROLOGICAL: Cranial nerves II through XII grossly intact. Normal speech, gait not observed. Laboratory Results - last 24 hr 12/23/16 12/23/16 12/23/16 10:10 10:10 10:10 WBC 6.9 RBC 3.79 Hgb 10.9 Hct 34.4 MCV 90.7 MCHC 31.6 L RDW 15.4 Plt Count 118 L D MPV 9.7 Neutrophils % 86.8 H Lymphocytes % 7.8 L D Monocytes % 4.6 Eosinophils % 0.7 Basophils % 0.1 Sodium 144 Potassium 5.5 H Chloride 111 H Carbon Dioxide 27 Anion Gap 6 L BUN 24 H Creatinine 1.6 H Creat Clearance w eGFR 31.26 Random Glucose 214 H Hemoglobin A1c % 7.6 H Calcium 7.5 L Phosphorus 3.2 Magnesium 2.3 Total Bilirubin 0.9 AST 23 ALT 20 Alkaline Phosphatase 136 H Total Protein 5.9 L Albumin 2.8 L Home Medications Medication Instructions Recorded Acetaminophen [Tylenol 1,000 mg PO TID #20 tablet 05/04/13 .Extra-Strength -] Ascorbic Acid [Vitamin C] 500 mg PO BID 05/04/13 Calcium Citrate/Vitamin D3 1 each PO BID 05/04/13 [Citracal + D Caplet] Ergocalciferol (Vitamin D2) 50,000 unit PO WEEKLY 05/04/13 [Vitamin D] Insulin NPL/Insulin Lispro 30 unit SQ AM 05/04/13 [Humalog Mix 75-25 Pen] Lisinopril [Prinivil] 10 mg PO DAILY 05/04/13 Nitrofurantoin [Furadantin] 100 mg PO DAILY 05/04/13 Omeprazole 40 mg PO DAILY 05/04/13 Pregabalin [Lyrica] 50 mg PO BID 05/04/13 Warfarin Na [Coumadin -] 2.5 mg PO DAILY 05/04/13 Latanoprost 0.005% Eye Drops 1 drop OU HS 06/25/14 [Xalatan 0.005% Eye Drops -] Sulfamethoxazole/Trimethoprim 1 each PO BID #30 tablet 07/02/14 [Bactrim DS -] Lidocaine 2% Jelly [Xylocaine 2% 1 applic TP BID PRN #1 tube 10/16/15 Jelly -] Insulin Lispro Protamin/Lispro 27 unit SQ DAILY 12/22/16 [Humalog Mix 75-25 Vial] Iron 18 mg PO DAILY 12/22/16 Multivitamin [Poly-Vitamin] 1 each PO DAILY 12/22/16 HOSPITAL COURSE: Date of Admission:12/23/16 Date of Discharge: 12/23/16 76 year-old female with a PMH of HTN, afib on coumadin, IDDM, Parkinson's, bladder cancer s/p ileal conduit (2006), s/p IVC filter, and morbid obesity. Presented to the emergency department with abdominal pain, nausea, vomiting x 1 day. Patient reported the pain as sharp in nature. Her daughter reported the patient had several episodes of non-bilious vomiting, undigested food. Patient reported her last BM was yesterday soft-brown. Patient reported having a decreased appetite for several days. Patient reported being treated for UTI, day 7 of the 10 day course. Patient denied fever, chills, cough, dizziness, SOB , CP, diarrhea. ER course was notable for: (1) CTAP: compared to 09/01/16 study, interval development of a SBO probably related to an umbilical hernia which contains dilated small bowel loops (2) Lactic Acid 2.4--> 1.0 (3) INR 3.5 Bowel obstruction --NG tube draining brown fluid --strict NPO; vitamins, lisinopril, nitrofurantoin, omeprazole, Lyria, Bactrim, iron held --IV fluids --discussed with Dr. Chinedu Couch; may require surgery, decision made to transfer to a tertiary care facility --discussed with patient's urologist, Dr. Lamberto Gomez. Bladder cancer s/p ileal conduit --functioning conduit --US renal: no hydronephrosis UTI --on 7th day of nitrofurantoin and Bactrim --switched to IV ceftriaxone, received first dose evening of 12/22 Acute kidney injury --Cr 1.6 today, 1.4 on admission; 1.3 baseline --IV fluids Atrial fibrillation --rate 80's-90's; does not appear to be on home meds for rate control --INR 3.5, hold coumadin IDDM --continue Lispro Parkinson disease --on no meds Minutes to complete discharge: 35 Discharge Summary Reason For Visit: BOWL OBSTRUCTION DM MORBID OBESITY Current Active Problems Acute renal failure (Acute) Bowel obstruction (Acute) DM2 (diabetes mellitus, type 2) (Acute) DVT prophylaxis (Acute) Elevated INR (Acute) Hypoglycemia (Acute) Morbid obesity (Acute) Parkinson disease (Acute) Condition: Stable - Instructions Referrals: Lamberto Gomez MD [Staff Physician] - Disposition: TRANSFER ACUTE CARE/OTHER HOSP - Home Medications Comprehensive Discharge Medication List: Ambulatory Orders Insulin NPL/Insulin Lispro [Humalog Mix 75-25 Pen] 30 unit SQ AM 05/04/13 Latanoprost 0.005% Eye Drops [Xalatan 0.005% Eye Drops -] 1 drop OU HS 06/25/14 Lidocaine 2% Jelly [Xylocaine 2% Jelly -] 1 applic TP BID PRN #1 tube 10/16/15 Insulin Lispro Protamin/Lispro [Humalog Mix 75-25 Vial] 27 unit SQ DAILY Morphine Injection - [Morphine Injection 2 mg/1 mL -] 2 mg IVPUSH Q4H PRN #0 mg MDD 8 12/23/16 Ondansetron Injection [Zofran Injection] 4 mg IVPUSH Q6H PRN #0 vial 12/23/16 Sodium Chloride [Normal Saline -] 1,000 ml IV ASDIR #1000 ml 12/23/16 This patient is new to me today: Yes Date on this admission: 12/23/16 Emergency Visit: Yes ED Registration Date: 12/23/16 Care time: The patient presented to the Emergency Department on the above date and was hospitalized for further evaluation of their emergent condition. Critical Care patient: No - Discharge Referral Referred to [facility] No
[2016-12-23 18:32] VITALS: PULSE 105
[2016-12-23 18:35] VITALS: BP 143/72
[2016-12-24] MEDS ORDERED: CEFTRIAXONE 50 ML IVPB SCH (10:00)
--- NOTE | 2016-12-24 16:04 | CONS ---
DATE OF CONSULTATION: DATE OF DICTATION: 12/24/2016 HISTORY OF PRESENT ILLNESS: Patient is a 76-year-old female well known to me. 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 The patient had an ileo conduit placed in her right lower quadrant. Subsequently, patient developed a parastomal hernia, which has been asymptomatic. Patient does have recurrent urinary tract infections and intermittent episodes of hematuria. She has also undergone multiple ileoscopies, and no acute pathology was found presently. She presents to the emergency room with abdominal pain and nausea. The patient is on Coumadin. She is a hypertensive diabetic. Has Parkinson disease. She is morbidly obese. Has had deep vein phlebitis and has undergone IVC filter. She states she had one episode of vomiting today. The pain was sharp in nature. The vomiting was mostly bilious. Patient's last bowel movement was one day prior to admission. Patient also complains of decreased appetite over the past week. She recently finished a 10-day course of antibiotics for an E. coli urinary tract infection. Patient has had an episode of herpes zoster for which she still has pain along her lower lumbar dermatome. Presently, she denies fever, chills, cough, shortness of breath, chest pain or diarrhea. She denies any recent travel. She denies any alcohol use, tobacco or drug use. ALLERGIES: She is allergic to LATEX. MEDICATIONS: Patient is on multiple medications including vitamin C, B2 and B3. She takes Tylenol for pain. She is also on insulin for her diabetes. She also takes Prinivil for her high blood pressure. She is on a nitrofurantoin as a prophylactic urinary antiseptic, which she takes at bedtime. Patient also takes a PPI. She is also on Lyrica, Coumadin 2.5 mg daily, Xalatan eye drops, Bactrim, iron and a multivitamin tablet. PHYSICAL EXAMINATION: General: Presently, she does not appear to be any distress. The patient is alert and oriented. Vital signs: She does not have any fever or chills. Her temperature is 98. Blood pressure 130/68. O2 saturation 95%. Respirations 18 and regular. Abdomen: Tender and somewhat distended. It was tympanitic to palpation. No hepatosplenomegaly is noted. There is a right ileo conduit with a patent stoma. Her urine is clear. There is a peristomal hernia, which is easily reducible. Pelvic exam: Deferred. Extremities: Reveal full range of motion with no cyanosis, clubbing or edema. LABS: Blood work up in the emergency room revealed a white count of 6000, hemoglobin/hematocrit of 12.1/37.9. Her platelets were 157. Indices were all within normal limits. Her INR was 3.5. Her lactic acid level was 2.495. Her urine was positive for blood and negative for nitrites. She had a pH of 7. Her BUN/creatinine were 24/1.4. Her random glucose is 195. A CAT scan of the patient's abdomen performed in the emergency room without contrast basically revealed a small bowel obstruction, most likely related to an umbilical hernia, which contains dilated small bowel. Also noted was a peristomal hernia in association with her right-sided ileo conduit. The herniated small bowel in this region demonstrates no dilation. She has also had evidence of mild bilateral hydroureteronephrosis. This is somewhat more significant than a prior CT done last year. Also, an interval development is mild nonspecific mesenteric soft tissue stranding what is seen in the lower pelvis within the cystectomy fossa. IMPRESSON AT PRESENT: 76-year-old female with history of multiple abdominal surgeries presents with partial small bowel obstruction PLAN: 1. Will recommend a surgical consult. 2. NG tube. 3. Patient should also undergo a diuretic nuclear renal scan to rule out any significant obstruction of her kidneys. 4. She will under an ileoscopy and possible ureteral dilation as an outpatient. Will follow with you. Chris [id number]
== END 2016-12-23 18:00 | disposition short-term general hospital (02) | DRG 394 ==
LOC: JER 14:42 → JERBED 12-23 00:34
PROVIDERS: ADMIT Internal Medicine; ATTEND Nurse Practitioner Acute Care
PROC: 0D9670Z Drainage of Stomach with Drainage Device, Via Natural or Artificial Opening (ICD-10-PCS; principal; 2016-12-23)
DX: K42.0 Umbilical hernia with obstruction, without gangrene (principal); N39.0 Urinary tract infection, site not specified; N17.9 Acute kidney failure, unspecified; I48.91 Unspecified atrial fibrillation; I10 Essential (primary) hypertension; E11.65 Type 2 diabetes mellitus with hyperglycemia; G20 Parkinson's disease; K21.9 Gastro-esophageal reflux disease without esophagitis; E66.01 Morbid (severe) obesity due to excess calories; Z68.39 Body mass index [BMI] 39.0-39.9, adult; Z71.3 Dietary counseling and surveillance; M19.90 Unspecified osteoarthritis, unspecified site; B96.89 Other specified bacterial agents as the cause of diseases classified elsewhere; Z79.01 Long term (current) use of anticoagulants; Z85.51 Personal history of malignant neoplasm of bladder
CPT/HCPCS: 36415; 71010-TC; 74176-TC; 76775-TC; 76856-TC; 80053; 81003; 81015; 82550; 83036; 83605; 83690; 83735; 84100; 84484; 85025; 85610; 86850; 86900; 86901; 87040; 87086; 87186; 93005; 93010; 99285-25

== ENCOUNTER 2017-05-08 18:41 | Inpatient (IN) | payer OTHER ==
[2017-05-08 20:49] LABS: BASOPHIL 0.5 % (0-2.0); EOSINOPHIL 1.6 % (0-4.5); MCH 28.7 pg (25.7-33.7); MCHC 32.6 g/dl (32.0-36.0); MEAN PLT VOLUME 10.1 fl (7.5-11.1); NEUTROPHILS 70.2 % (42.8-82.8); PLATELET COUNT 142 K/MM3 (134-434); WHITE BLOOD COUNT 4.7 K/mm3 (4.0-10.0)
[2017-05-08 21:10] LABS: INR 1.73 (0.82-1.09); PROTHROMBIN TIME (PATIENT) 19.2 SEC (9.98-11.88)
--- NOTE | 2017-05-08 21:31 | PDOC ---
History of Present Illness <Mary Zambrano - Last Filed: 05/08/17 23:09> - General History Source: Patient, Family (Daughters) - History of Present Illness Initial Comments: 05/08/17 21:37 The patient is a 76 year old female with a significant PMH of HTN, diabetes, bladder cancer, stomach hernias, right knee surgery and blood clots who presents to the emergency department with right sided weakness and right knee pain s/p fall beginning approximately one week ago. The patient reports getting off her bed and losing her balance, after which she fell and hit her head. Since then, the patients daughters have noticed that the patient keeps dropping things from her right hand and slightly slurring her speech. The patients daughters also note that the patient has been dragging her right lower extremity since she fell. The patient is on Coumadin for previous DVT's. The patient denies chest pain, shortness of breath, headache and dizziness. Denies fever, chills, nausea, vomit, diarrhea and constipation. Denies dysuria, frequency, urgency and hematuria. Allergies: Latex Past surgical history: 3 surgeries in right knee. IVC filter. Social history: No reported PCP: [facility] on-call doctor 05/08/17 23:15 <Hamilton Astudillo - Last Filed: 05/08/17 23:20> - General Chief Complaint: Weakness Stated Complaint: POSSIBLE STROKE Time Seen by Provider: 05/08/17 19:29 Past History - Past Medical History Anemia: No Asthma: No Cancer: Yes (BLADDER) Cardiac Disorders: No CVA: No COPD: No CHF: No Dementia: No Diabetes: Yes GI Disorders: Yes (GERD) Disorders: Yes (BLADDER CA) HTN: Yes Hypercholesterolemia: No Liver Disease: No Seizures: No Thyroid Disease: No - Surgical History Abdominal Surgery: Yes Appendectomy: No Cardiac Surgery: No Cholecystectomy: Yes Lung Surgery: No Neurologic Surgery: No Orthopedic Surgery: Yes (R KNEE REPLACEMENT) - Suicide/Smoking/Psychosocial Hx Smoking Status: No Smoking History: Never smoked Have you smoked in the past 12 months: No Number of Cigarettes Smoked Daily: 0 Hx Alcohol Use: No Drug/Substance Use Hx: No Substance Use Type: None Hx Substance Use Treatment: No <Mary Zambrano - Last Filed: 05/08/17 23:09> <Hamilton Astudillo - Last Filed: 05/08/17 23:20> - Past Medical History Allergies/Adverse Reactions: Allergies Allergy/AdvReac Type Severity Reaction Status Date / Time latex Allergy Verified 05/08/17 19:12 Home Medications: Ambulatory Orders Insulin NPL/Insulin Lispro [Humalog Mix 75-25 Pen] 30 unit SQ AM 05/04/13 Latanoprost 0.005% Eye Drops [Xalatan 0.005% Eye Drops -] 1 drop OU HS 06/25/14 Insulin Lispro Protamin/Lispro [Humalog Mix 75-25 Vial] 27 unit SQ DAILY Furosemide [Lasix -] 40 mg PO DAILY 05/08/17 Iron 05/08/17 Lisinopril/Hydrochlorothiazide [Lisinopril-Hctz 10-12.5 mg Tab] 10 mg PO BID Multivitamins [Multivit ([facility] Formulary)] 1 mg PO DAILY 05/08/17 Omeprazole 40 mg PO 05/08/17 Pregabalin [Lyrica -] 50 mg PO BID 05/08/17 Warfarin Sodium 2.5 mg PO HS 05/08/17 Review of Systems - Review of Systems Comments:: 05/08/17 21:37 CONSTITUTIONAL: (+) Right sided weakness. Absent: fever, chills, diaphoresis, malaise, loss of appetite HEENT: Absent: rhinorrhea, nasal congestion, throat pain, throat swelling, difficulty swallowing, mouth swelling, ear pain, eye pain, visual Changes CARDIOVASCULAR: Absent: chest pain, syncope, palpitations, irregular heart rate, lightheadedness , peripheral edema RESPIRATORY: Absent: cough, shortness of breath, dyspnea with exertion, orthopnea, wheezing, stridor, hemoptysis GASTROINTESTINAL: Absent: abdominal pain, abdominal distension, nausea, vomiting, diarrhea, constipation, melena, hematochezia GENITOURINARY: Absent: dysuria, frequency, urgency, hesitancy, hematuria, flank pain, genital pain MUSCULOSKELETAL: Absent: myalgia, arthralgia, joint swelling SKIN: Absent: rash, itching, pallor HEMATOLOGIC/IMMUNOLOGIC: Absent: easy bleeding, easy bruising, lymphadenopathy, frequent infections ENDOCRINE: Absent: unexplained weight gain, unexplained weight loss, heat intolerance, cold intolerance NEUROLOGIC: Absent: headache, focal weakness or paresthesias, dizziness, unsteady gait, seizure, mental status changes, bladder or bowel incontinence PSYCHIATRIC: Absent: anxiety, depression, suicidal or homicidal ideation, hallucinations. <Hamilton Astudillo - Last Filed: 05/08/17 23:20> *Physical Exam - Vital Signs Last Vital Signs Temp Pulse Resp BP Pulse Ox 97.7 F 70 20 130/70 99 05/08/17 19:07 05/08/17 20:58 05/08/17 20:58 05/08/17 20:58 05/08/17 20:58 <Mary Zambrano - Last Filed: 05/08/17 23:09> - Vital Signs Last Vital Signs Temp Pulse Resp BP Pulse Ox 97.7 F 70 20 130/70 99 05/08/17 19:07 05/08/17 20:58 05/08/17 20:58 05/08/17 20:58 05/08/17 20:58 - Physical Exam Comments: 05/08/17 21:38 GENERAL: (+) Obese. Well developed, well nourished. Awake and alert. No acute distress. HEENT: Normocephalic, atraumatic. PERRLA, EOMI. No conjunctival pallor. Sclera are non- icteric. Moist mucous membranes. Oropharynx is clear. NECK: Supple. Full ROM. No JVD. Carotid pulses 2+ and symmetric, without bruits. No thyromegaly. No lymphadenopathy. CARDIOVASCULAR: Regular rate and rhythm. No murmurs, rubs, or gallops. Distal pulses are 2+ and symmetric. PULMONARY: No evidence of respiratory distress. Lungs clear to auscultation bilaterally. No wheezing, rales or rhonchi. ABDOMINAL: Soft. Non-tender. Non-distended. No rebound or guarding. No organomegaly. Normoactive bowel sounds. MUSCULOSKELETAL Normal range of motion at all joints. No bony deformities or tenderness. No CVA tenderness. EXTREMITIES: (+) +1 pitting edema bilaterally in the lower extremities. No cyanosis. No clubbing. No calf tenderness. SKIN: Warm and dry. Normal capillary refill. No rashes. No jaundice. NEUROLOGICAL: Alert, awake, appropriate. Moving all extremities purposefully. Please see NIH stroke scale for further detail. PSYCHIATRIC: Cooperative. Good eye contact. Appropriate mood and affect. <Hamilton Astudillo - Last Filed: 05/08/17 23:20> ED Treatment Course - LABORATORY CBC & Chemistry Diagram: 05/08/17 20:40 05/08/17 20:40 - ADDITIONAL ORDERS Additional order review: Laboratory Results 05/08/17 20:40 PT with INR 19.20 H INR 1.73 H D 05/08/17 20:40 RBC 3.91 MCV 88.0 MCHC 32.6 RDW 15.0 MPV 10.1 Neutrophils % 70.2 Lymphocytes % 21.1 D Monocytes % 6.6 Eosinophils % 1.6 D Basophils % 0.5 D - RADIOLOGY Radiology Studies Ordered: Category Date Time Status HEAD CT WITHOUT CONTRAST [CT] Stat CT Scan 05/08/17 19:30 Completed CHEST X-RAY PORTABLE* [RAD] Stat Radiology 05/08/17 19:30 Taken <Mary Zambrano - Last Filed: 05/08/17 23:09> - LABORATORY CBC & Chemistry Diagram: 05/08/17 20:40 05/08/17 20:40 - ADDITIONAL ORDERS Additional order review: Laboratory Results 05/08/17 05/08/17 20:40 20:40 PT with INR 19.20 H INR 1.73 H D Sodium Cancelled Potassium Cancelled Chloride Cancelled Carbon Dioxide Cancelled Anion Gap Cancelled BUN Cancelled Creatinine Cancelled Creat Clearance w eGFR Cancelled Random Glucose Cancelled Calcium Cancelled Total Bilirubin Cancelled AST Cancelled ALT Cancelled Alkaline Phosphatase Cancelled Creatine Kinase Cancelled Troponin I Cancelled Total Protein Cancelled Albumin Cancelled Triglycerides Cancelled Cholesterol Cancelled Total LDL Cholesterol Cancelled HDL Cholesterol Cancelled 05/08/17 20:40 RBC 3.91 MCV 88.0 MCHC 32.6 RDW 15.0 MPV 10.1 Neutrophils % 70.2 Lymphocytes % 21.1 D Monocytes % 6.6 Eosinophils % 1.6 D Basophils % 0.5 D - Consult/PCP Time Called: 21:10 Case discussed with consulting physician: Juan Manuel Thomas Consult Reason/Comments: : Sub-acute [place] bleed. INR: 1.73. Nothing to do at this time. <Hamilton Astudillo - Last Filed: 05/08/17 23:20> *DC/Admit/Observation/Transfer - Discharge Dispostion Admit: Yes <Mary Zambrano - Last Filed: 05/08/17 23:09> - Attestations Scribe Attestion: 05/08/17 21:38 Documentation prepared by Hamilton Astudillo, acting as medical photographer for Mary Zambrano MD. <Hamilton Astudillo - Last Filed: 05/08/17 23:20> Diagnosis at time of Disposition: Morbid obesity, Intracranial bleed
--- NOTE | 2017-05-08 21:34 | PDOC ---
NIH Stroke Scale - Last Known Well Date/Time & Onset Date Last Known Well: 05/02/17 Time Last Known Well: 20:00 - Initial Evaluation Level of consciousness: Alert Ask patient the month and their age: Answers one correctly Ask patient to open & close eyes; make fist and let go: Obeys both correctly Best gaze (horizontal eye movement): Normal Visual field testing: No visual field loss Facial paresis (Show teeth/raise eyebrows/close eyes tight): Minor paralysis ( flattened nasolabial fold, asymmetry on smiling) Motor Function: Left Arm: Normal Motor Function: Right Arm: Normal (extends arm 90 (or 45) degrees for 10 seconds without drift Motor Function: Left Leg: Normal (extends leg 30 degrees for 5 seconds without drift) Motor Function: Right Leg: Normal (extends leg 30 degrees for 5 seconds without drift) Limb Ataxia: No ataxia Sensory(Use pinprick test arms,legs,trunk,face/side to side): Normal Best language (Describe picture, name items, read sentences): No Aphasia Dysarthria (read several words): Mild to moderate slurring of words Extinction and Inattention: No abnormality - Total Score NIH Stroke Scale Score: 3 tPA Exclusion checklist 3-4.5h - Time Elapsed Date last known well: 05/02/17 Time last known well: 20:00 Elaspsed time: 6 Day(s) and 1 Hour(s) and 34 Minutes - Thrombolytic Therapy Candidate Is patient eligible for thrombolytic therapy: No - Exclusion Criteria 3-4.5 hr SBP greater than 185 or DBP greater than 110mmHg despite tx: No Recent IC/spinal surgery,head trauma or stroke<3mos.: Yes Hx IC hemorrhage, IC neoplasm, AV malformation or aneurysm: Yes Active internal bleeding: No Blding diathesis(low plt ct, inc PTT,INR>1.7 or use of NOAC): Yes Symptoms suggest subarachnoid hemorrhage: No CT demonstrates multilobar infarct(>1/3 cerebral hemiphere): No Arterial puncture at noncompressible site in previous 7 days: No Blood glucose concentration less than 50mg/dL (2.7mmol/L): No - Relative Exclusion Criteria 3-4.5 hr Life expectancy <1 yr or severe co-morbid illness: No : No Patient/family refused: No Rapid improvement: No Stroke severity too mild: Yes Recent acute DC (w/in previous 3 months): No Seizure at onset with postictal residual neuro impairments: No Major surgery or serious trauma w/in previous 14 days: No Recent GI or hemorrhage (w/in previous 21 days): No - Add'l Relative Exclusion 3-4.5 hr Age > 80: No Hx of both diabetes AND prior ischemic stroke: No Taking an oral anticoagulant regardless of INR: Yes NIHSS >25: No - Ineligibility reason(s) Reasons No tPA given: Outside of window - delayed arrival, See reason(s) noted above (pt has had symptoms for 6 days and now has brain bleed)
--- NOTE | 2017-05-08 21:58 | PDOC ---
History of Present Illness - General Chief Complaint: Weakness Stated Complaint: POSSIBLE STROKE Time Seen by Provider: 05/08/17 19:29 Past History - Past Medical History Allergies/Adverse Reactions: Allergies Allergy/AdvReac Type Severity Reaction Status Date / Time latex Allergy Verified 05/08/17 19:12 Home Medications: Ambulatory Orders Insulin NPL/Insulin Lispro [Humalog Mix 75-25 Pen] 30 unit SQ AM 05/04/13 Latanoprost 0.005% Eye Drops [Xalatan 0.005% Eye Drops -] 1 drop OU HS 06/25/14 Insulin Lispro Protamin/Lispro [Humalog Mix 75-25 Vial] 27 unit SQ DAILY Furosemide [Lasix -] 40 mg PO DAILY 05/08/17 Iron 05/08/17 Lisinopril/Hydrochlorothiazide [Lisinopril-Hctz 10-12.5 mg Tab] 10 mg PO BID Multivitamins [Multivit ([facility] Formulary)] 1 mg PO DAILY 05/08/17 Omeprazole 40 mg PO 05/08/17 Pregabalin [Lyrica -] 50 mg PO BID 05/08/17 Warfarin Sodium 2.5 mg PO HS 05/08/17 Anemia: No Asthma: No Cancer: Yes (BLADDER) Cardiac Disorders: No CVA: No COPD: No CHF: No Dementia: No Diabetes: Yes GI Disorders: Yes (GERD) Disorders: Yes (BLADDER CA) HTN: Yes Hypercholesterolemia: No Liver Disease: No Seizures: No Thyroid Disease: No - Surgical History Abdominal Surgery: Yes Appendectomy: No Cardiac Surgery: No Cholecystectomy: Yes Lung Surgery: No Neurologic Surgery: No Orthopedic Surgery: Yes (R KNEE REPLACEMENT) - Suicide/Smoking/Psychosocial Hx Smoking Status: No Smoking History: Never smoked Have you smoked in the past 12 months: No Number of Cigarettes Smoked Daily: 0 Hx Alcohol Use: No Drug/Substance Use Hx: No Substance Use Type: None Hx Substance Use Treatment: No *Physical Exam - Vital Signs Last Vital Signs Temp Pulse Resp BP Pulse Ox 97.7 F 70 20 130/70 99 05/08/17 19:07 05/08/17 20:58 05/08/17 20:58 05/08/17 20:58 05/08/17 20:58 ED Treatment Course - LABORATORY CBC & Chemistry Diagram: 05/08/17 20:40 05/08/17 23:00 - ADDITIONAL ORDERS Additional order review: Laboratory Results 05/08/17 05/08/17 20:40 20:40 PT with INR 19.20 H INR 1.73 H D Sodium Cancelled Potassium Cancelled Chloride Cancelled Carbon Dioxide Cancelled Anion Gap Cancelled BUN Cancelled Creatinine Cancelled Creat Clearance w eGFR Cancelled Random Glucose Cancelled Calcium Cancelled Total Bilirubin Cancelled AST Cancelled ALT Cancelled Alkaline Phosphatase Cancelled Creatine Kinase Cancelled Troponin I Cancelled Total Protein Cancelled Albumin Cancelled Triglycerides Cancelled Cholesterol Cancelled Total LDL Cholesterol Cancelled HDL Cholesterol Cancelled 05/08/17 20:40 RBC 3.91 MCV 88.0 MCHC 32.6 RDW 15.0 MPV 10.1 Neutrophils % 70.2 Lymphocytes % 21.1 D Monocytes % 6.6 Eosinophils % 1.6 D Basophils % 0.5 D - RADIOLOGY Radiology Studies Ordered: Category Date Time Status HEAD CT WITHOUT CONTRAST [CT] Stat CT Scan 05/08/17 19:30 Completed CHEST X-RAY PORTABLE* [RAD] Stat Radiology 05/08/17 19:30 Taken Medical Decision Making - Medical Decision Making 05/08/17 21:58 I saw this 76-year-old female earlier. Family brought her in today because she fell last Monday and they felt that her right side exhibited some weakness and that her speech was not as clear as baseline. Patient does have a history of DVTs and is on Coumadin and she also has an IVC filter. She is insulin-dependent diabetic ,obese AND hypertensive [facility] is the home [facility] medical [facility] that cares for this pt well. NIHSS=3 CAT scan showed a left internal capsular acute bleed Patient is on Coumadin. Her INR was 1.73 I spoke with the neurosurgeon, Dr. Juan Manuel Thomas. He said there was nothing to do this time. He felt that he was actually subacute after he looked at the CAT scan because of the amount of edema. 05/09/17 01:20 Dr. Montalvo who came and saw the patient and wrote admitting orders. She requested that the patient spend the evening in the ICU and she could be downgraded in the morning as long she remains stable *DC/Admit/Observation/Transfer Diagnosis at time of Disposition: Morbid obesity, Intracranial bleed
[2017-05-08] MEDS ORDERED: PANTOPRAZOLE 40 MG TABLET (FP) PO ONE (23:44)
--- NOTE | 2017-05-08 23:45 | CONSULT ---
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 Per pt she lost her balance, fell and hit her head. Pt did not seek medical attention at the time but since the incident, pts daughters have noticed R sided weakness and slightly slurred speech. She is followed by [facility] who recommended that she come in and pt presented to the ED today. On presentation to the ED, vitals were stable. She had a CT head which showed an acute left thalamocapsular hemorrhage with minimal to mild perihemorrhagic edema. Pt was seen by neurosurgery who felt that hemorrhage was likely less acute and had no further recommendations at present. Pts PMD Dr. Alonzo requested pt be monitored in ICU overnight. Current Medications Sodium Chloride (Normal Saline -) 1,000 mls @ 42 mls/hr IV ASDIR GLORIA - History Source History Provided By: Patient, Medical Record - Past Medical History Cardio/Vascular: Yes: AFIB, HTN Gastrointestinal: Yes: GERD Heme/Onc: Yes: Cancer (bladder cancer) Musculoskeletal: Yes: Osteoarthritis - Past Surgical History Past Surgical History: Yes: Joint Replacement (R knee) - Alcohol/Substance Use Hx Alcohol Use: No - Smoking History Smoking history: Never smoked Have you smoked in the past 12 months: No Aproximately how many cigarettes per day: 0 Home Medications - Allergies Allergies/Adverse Reactions: Allergies Allergy/AdvReac Type Severity Reaction Status Date / Time latex Allergy Verified 05/08/17 19:12 - Home Medications Home Medications: Ambulatory Orders Insulin NPL/Insulin Lispro [Humalog Mix 75-25 Pen] 30 unit SQ AM 05/04/13 Latanoprost 0.005% Eye Drops [Xalatan 0.005% Eye Drops -] 1 drop OU HS 06/25/14 Insulin Lispro Protamin/Lispro [Humalog Mix 75-25 Vial] 27 unit SQ DAILY Furosemide [Lasix -] 40 mg PO DAILY 05/08/17 Iron 05/08/17 Lisinopril/Hydrochlorothiazide [Lisinopril-Hctz 10-12.5 mg Tab] 10 mg PO BID Multivitamins [Multivit ([facility] Formulary)] 1 mg PO DAILY 05/08/17 Omeprazole 40 mg PO 05/08/17 Pregabalin [Lyrica -] 50 mg PO BID 05/08/17 Warfarin Sodium 2.5 mg PO HS 05/08/17 Review of Systems - Review of Systems Constitutional: reports: Weakness Eyes: denies: Blurred Vision, Recent Change in Vision Cardiovascular: denies: Shortness of Breath Musculoskeletal: reports: Joint Pain Neurological: reports: Change in Speech, Dizziness, Headache, Incoordination, Unsteady Gait, Weakness Physical Exam Vital Signs: Vital Signs Temperature 97.7 F 05/08/17 19:07 Pulse Rate 70 05/08/17 20:58 Respiratory Rate 20 05/08/17 20:58 Blood Pressure 130/70 05/08/17 20:58 O2 Sat by Pulse Oximetry (%) 99 05/08/17 20:58 Eyes: Yes: PERRL HENT: Yes: Other (loss of left nasolabial fold) Cardiovascular: Yes: Regular Rate and Rhythm Respiratory: Yes: CTA Bilaterally Gastrointestinal: Yes: Normal Bowel Sounds, Abdomen, Obese Edema: No Integumentary: Yes: Other (ostomy s/p bladder ca, draining clear yellow urine) ...Motor Strength: RUE (slightly dminished strength) Psychiatric: Yes: Alert Labs: CBCD WBC 4.7 K/mm3 (4.0-10.0) D 05/08/17 20:40 RBC 3.91 M/mm3 (3.60-5.2) 05/08/17 20:40 Hgb 11.2 GM/dL (10.7-15.3) 05/08/17 20:40 Hct 34.4 % (32.4-45.2) 05/08/17 20:40 MCV 88.0 fl (80-96) 05/08/17 20:40 MCHC 32.6 g/dl (32.0-36.0) 05/08/17 20:40 RDW 15.0 % (11.6-15.6) 05/08/17 20:40 Plt Count 142 K/MM3 (134-434) D 05/08/17 20:40 MPV 10.1 fl (7.5-11.1) 05/08/17 20:40 CMP Sodium 142 mmol/L (136-145) 05/08/17 23:00 Potassium 4.4 mmol/L (3.5-5.1) 05/08/17 23:00 Chloride 105 mmol/L (98-107) 05/08/17 23:00 Carbon Dioxide 28 mmol/L (21-32) 05/08/17 23:00 Anion Gap 9 (8-16) 05/08/17 23:00 BUN 25 mg/dL (7-18) H 05/08/17 23:00 Creatinine 1.5 mg/dL (0.55-1.02) H 05/08/17 23:00 Creat Clearance w eGFR 33.67 (>60) 05/08/17 23:00 Random Glucose 261 mg/dL (74-106) H D 05/08/17 23:00 Calcium 8.3 mg/dL (8.5-10.1) L 05/08/17 23:00 Total Bilirubin 0.4 mg/dL (0.2-1.0) D 05/08/17 23:00 AST 17 U/L (15-37) D 05/08/17 23:00 ALT 16 U/L (12-78) 05/08/17 23:00 Alkaline Phosphatase 151 U/L (45-117) H 05/08/17 23:00 Total Protein 6.4 g/dl (6.4-8.2) 05/08/17 23:00 Albumin 3.0 g/dl (3.4-5.0) L 05/08/17 23:00 CARDIAC ENZYMES Creatine Kinase 178 IU/L (26-192) 05/08/17 23:00 Troponin I < 0.02 ng/ml (0.00-0.05) 05/08/17 23:00 Imaging - Results Chest X-ray: Image Reviewed Cat Scan: Report Reviewed Problem List - Problems (1) Intracranial bleed Code(s): I62.9 - NONTRAUMATIC INTRACRANIAL HEMORRHAGE, UNSPECIFIED (2) Morbid obesity Code(s): E66.01 - MORBID (SEVERE) OBESITY DUE TO EXCESS CALORIES (3) Bladder cancer Code(s): C67.9 - MALIGNANT NEOPLASM OF BLADDER, UNSPECIFIED (4) DM2 (diabetes mellitus, type 2) Code(s): E11.9 - TYPE 2 DIABETES MELLITUS WITHOUT COMPLICATIONS Qualifiers: Diabetes mellitus complication status: without complication Diabetes mellitus [facility] insulin use: without extermination inspector use Qualified Code(s): E11.9 - Type 2 diabetes mellitus without complications (5) HTN (hypertension) Code(s): I10 - ESSENTIAL (PRIMARY) HYPERTENSION Assessment/Plan 76 y/o woman with h/o HTN, DM, 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
[2017-05-08 23:52] LABS: CPK 178 IU/L (26-192); TROPONIN I < 0.02 ng/ml (0.00-0.05)
--- NOTE | 2017-05-09 00:03 | HP ---
Admitting History and Physical - Primary Care Physician PCP: Humberto Alonzo - Admission History of Present Illness: -76 year old female with a significant PMH of HTN, diabetes, bladder cancer, stomach hernias, right knee surgery and blood clots who presents to the emergency department with right sided weakness and right knee pain s/p fall beginning approximately one week ago. The patient reports getting off her bed and losing her balance, after which she fell and hit her head. Since then, the patients daughters have noticed that the patient keeps dropping things from her right hand and slightly slurring her speech. The patients daughters also note that the patient has been dragging her right lower extremity since she fell. The patient is on Coumadin for previous DVT's. The patient denies chest pain, shortness of breath, headache and dizziness. Denies fever, chills, nausea, vomit, diarrhea and constipation. Denies dysuria, frequency, urgency and hematuria. - Past Medical History Cardiovascular: Yes: AFIB, HTN Gastrointestinal: Yes: GERD Heme/Onc: Yes: Cancer (bladder cancer) Musculoskeletal: Yes: Osteoarthritis - Past Surgical History Past Surgical History: Yes: Joint Replacement (R knee) - Smoking History Smoking history: Never smoked Have you smoked in the past 12 months: No Aproximately how many cigarettes per day: 0 - Alcohol/Substance Use Hx Alcohol Use: No Home Medications - Allergies Allergies/Adverse Reactions: Allergies Allergy/AdvReac Type Severity Reaction Status Date / Time latex Allergy Verified 05/08/17 19:12 - Home Medications Home Medications: Ambulatory Orders Insulin NPL/Insulin Lispro [Humalog Mix 75-25 Pen] 30 unit SQ AM 05/04/13 Latanoprost 0.005% Eye Drops [Xalatan 0.005% Eye Drops -] 1 drop OU HS 06/25/14 Insulin Lispro Protamin/Lispro [Humalog Mix 75-25 Vial] 27 unit SQ DAILY Furosemide [Lasix -] 40 mg PO DAILY 05/08/17 Iron 05/08/17 Lisinopril/Hydrochlorothiazide [Lisinopril-Hctz 10-12.5 mg Tab] 10 mg PO BID Multivitamins [Multivit ([facility] Formulary)] 1 mg PO DAILY 05/08/17 Omeprazole 40 mg PO 05/08/17 Pregabalin [Lyrica -] 50 mg PO BID 05/08/17 Physical Examination Vital Signs: Vital Signs Temperature 97.7 F 05/08/17 19:07 Pulse Rate 70 05/08/17 20:58 Respiratory Rate 20 05/08/17 20:58 Blood Pressure 130/70 05/08/17 20:58 O2 Sat by Pulse Oximetry (%) 99 05/08/17 20:58 Constitutional: Yes: No Distress HENT: Yes: Atraumatic Neck: Yes: Supple Cardiovascular: Yes: Regular Rate and Rhythm Respiratory: Yes: CTA Bilaterally Gastrointestinal: Yes: Normal Bowel Sounds Extremities: Yes: WNL Edema: No Peripheral Pulses WNL: Yes ...Motor Strength: RUE, RLE (weak 4/5 strength new since this stroke) Imaging - Results Cat Scan: Report Reviewed Problem List - Problems (1) Elevated INR Assessment/Plan: will fu hold coumadin Code(s): R79.1 - ABNORMAL COAGULATION PROFILE (2) Intracranial bleed Assessment/Plan: hold coumadin monitor neuro checks Code(s): I62.9 - NONTRAUMATIC INTRACRANIAL HEMORRHAGE, UNSPECIFIED (3) Morbid obesity Code(s): E66.01 - MORBID (SEVERE) OBESITY DUE TO EXCESS CALORIES (4) DM2 (diabetes mellitus, type 2) Assessment/Plan: bgms on insulin Code(s): E11.9 - TYPE 2 DIABETES MELLITUS WITHOUT COMPLICATIONS Qualifiers: Diabetes mellitus complication status: without complication Diabetes mellitus [facility] insulin use: without equipment operator intermodal yard use Qualified Code(s): E11.9 - Type 2 diabetes mellitus without complications (5) DVT (deep venous thrombosis) Assessment/Plan: scds Code(s): I82.409 - ACUTE EMBOLISM AND THOMBOS UNSP DEEP VN UNSP LOWER EXTREMITY Assessment/Plan Laboratory Tests 05/08/17 05/08/17 05/08/17 20:40 20:40 20:40 WBC 4.7 D RBC 3.91 Hgb 11.2 Hct 34.4 MCV 88.0 MCH 28.7 MCHC 32.6 RDW 15.0 Plt Count 142 D MPV 10.1 Neutrophils % 70.2 Lymphocytes % 21.1 D Monocytes % 6.6 Eosinophils % 1.6 D Basophils % 0.5 D PT with INR 19.20 H INR 1.73 H D Sodium Cancelled Potassium Cancelled Chloride Cancelled Carbon Dioxide Cancelled Anion Gap Cancelled BUN Cancelled Creatinine Cancelled Creat Clearance w eGFR Cancelled Random Glucose Cancelled Calcium Cancelled Total Bilirubin Cancelled AST Cancelled ALT Cancelled Alkaline Phosphatase Cancelled Creatine Kinase Cancelled Troponin I Cancelled Total Protein Cancelled Albumin Cancelled Triglycerides Cancelled Cholesterol Cancelled Total LDL Cholesterol Cancelled HDL Cholesterol Cancelled Blood Type Antibody Screen 05/08/17 05/08/17 20:40 23:00 WBC RBC Hgb Hct MCV MCH MCHC RDW Plt Count MPV Neutrophils % Lymphocytes % Monocytes % Eosinophils % Basophils % PT with INR INR Sodium Potassium Chloride Carbon Dioxide Anion Gap BUN Creatinine Creat Clearance w eGFR Random Glucose Calcium Total Bilirubin AST ALT Alkaline Phosphatase Creatine Kinase 178 Troponin I < 0.02 Total Protein Albumin Triglycerides Cholesterol Total LDL Cholesterol HDL Cholesterol Blood Type O POSITIVE Antibody Screen Negative Active Medications Generic Name Dose Route Start Last Admin Trade Name Freq PRN Reason Stop Dose Admin Furosemide 40 mg 05/09/17 10:00 Lasix - PO DAILY [facility] Sodium Chloride 1,000 mls @ 42 mls/hr 05/08/17 19:30 Normal Saline - IV ASDIR GLORIA Non-Formulary Medication 27 unit 05/09/17 10:00 Insulin Lispro Protamin/Lispro [Humalog Mix 75-25 Vial] SQ DAILY GLORIA Pregabalin 50 mg 05/09/17 10:00 Lyrica - PO BID GLORIA cc time 60 min
[2017-05-09 00:31] LABS: ALK PHOS 151 U/L (45-117); ANION GAP 9 (8-16); BILIRUBIN,TOTAL 0.4 mg/dL (0.2-1.0); CALCIUM 8.3 mg/dL (8.5-10.1); CO2 28 mmol/L (21-32); CREATININE 1.5 mg/dL (0.55-1.02); GLUCOSE,RANDOM 261 mg/dL (74-106); SGOT/AST 17 U/L (15-37); SGPT/ALT 16 U/L (12-78); TOT PROT 6.4 g/dl (6.4-8.2)
[2017-05-09] MEDS: SODIUM CHLORIDE 1,000 ML IV SCH ×3 (01:16→23:08)
[2017-05-09 01:28] VITALS: BMI 40.1
[2017-05-09 06:26] LABS: BASOPHIL 0.2 % (0-2.0); EOSINOPHIL 1.2 % (0-4.5); MCHC 32.9 g/dl (32.0-36.0); MEAN CELL VOLUME 88.2 fl (80-96); MEAN PLT VOLUME 10.5 fl (7.5-11.1); PLATELET COUNT 141 K/MM3 (134-434); WHITE BLOOD COUNT 4.4 K/mm3 (4.0-10.0)
[2017-05-09 06:45] LABS: INR 1.72 (0.82-1.09); PROTHROMBIN TIME (PATIENT) 19.1 SEC (9.98-11.88)
[2017-05-09 06:51] LABS: ALBUMIN 2.9 g/dl (3.4-5.0); ANION GAP 5 (8-16); BILIRUBIN,TOTAL 0.6 mg/dL (0.2-1.0); CO2 29 mmol/L (21-32); CREATININE 1.5 mg/dL (0.55-1.02); GLUCOSE,RANDOM 185 mg/dL (74-106); SGOT/AST 14 U/L (15-37); SGPT/ALT 15 U/L (12-78); TOT PROT 6.2 g/dl (6.4-8.2)
[2017-05-09 06:52] LABS: ALK PHOS 131 U/L (45-117)
[2017-05-09] MEDS ORDERED: INSULIN (NOVOLOG MIX 70/30) 100 UNITS/ML MDV SQ SCH (07:00)
--- NOTE | 2017-05-09 07:51 | PN ---
Physical Exam: SUBJECTIVE: Patient seen and examined OBJECTIVE: Vital Signs Period Temp Pulse Resp BP Sys/Adorno Pulse Ox Last 24 Hr 97.8 F-98.2 F 61-76 17-20 130-162/63-74 95 Eyes: Yes: PERRL Cardiovascular: Yes: Regular Rate and Rhythm Respiratory: Yes: CTA Bilaterally Gastrointestinal: Yes: Normal Bowel Sounds, Abdomen, Obese Integumentary: Yes: Other (ostomy s/p bladder ca, draining clear yellow urine) ...Motor Strength: right sided weakness gneneralized Psychiatric: Yes: Alert Laboratory Results - last 24 hr 05/09/17 05/09/17 05/09/17 05:00 05:00 05:00 WBC 4.4 RBC 3.82 Hgb 11.1 Hct 33.6 MCV 88.2 MCH 29.0 MCHC 32.9 RDW 15.0 Plt Count 141 MPV 10.5 Neutrophils % 67.0 Lymphocytes % 22.2 Monocytes % 9.4 Eosinophils % 1.2 Basophils % 0.2 PT with INR 19.10 H INR 1.72 H Sodium 141 Potassium 4.4 Chloride 107 Carbon Dioxide 29 Anion Gap 5 L BUN 26 H Creatinine 1.5 H Creat Clearance w eGFR 33.67 Random Glucose 185 H D Calcium 8.0 L Total Bilirubin 0.6 D AST 14 L ALT 15 Alkaline Phosphatase 131 H Total Protein 6.2 L Albumin 2.9 L Active Medications Generic Name Dose Route Start Last Admin Trade Name Freq PRN Reason Stop Dose Admin Furosemide 40 mg 05/09/17 10:00 Lasix - PO DAILY [facility] Sodium Chloride 1,000 mls @ 42 mls/hr 05/08/17 19:30 05/09/17 01:16 Normal Saline - IV 42 mls/hr ASDIR GLORIA Administration Insulin Aspart 27 units 05/09/17 07:00 Novolog Mix 70/30 Vial SQ DAILY@0700 GLORIA Pantoprazole Sodium 40 mg 05/09/17 10:00 Protonix - PO DAILY GLORIA Pregabalin 50 mg 05/09/17 10:00 Lyrica - PO BID GLORIA CT HEAD: Acute 1.1 cm left thalamocapsular hemorrhage with minimal to mild perihemorrhagic edema ASSESSMENT/PLAN: 76 y/o woman with h/o HTN, DM, 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 - MRI when stable - hold home anticoagulation - fingersticks, continue insulin - Transfered to telemetry Visit type - Emergency Visit Emergency Visit: No - New Patient This patient is new to me today: Yes Date on this admission: 05/09/17 - Critical Care Critical Care patient: Yes Total Critical Care Time (in minutes): 30 Critical Care Statement: The care of this patient involved high complexity decision making to prevent further life threatening deterioration of the patient 's condition and/or to evaluate & treat vital organ system(s) failure or risk of failure.
--- NOTE | 2017-05-09 08:13 | PN ---
Progress Note (short form) - Note Progress Note: NEUROSURGERY CONSULT DICTATED Chart reviewed History reviewed Pt examined CT reviewed H/o HTN, diabetes, bladder cancer, DVT/PE on coumadin who presents to ED with right hemiparesis and right knee pain s/p fall approximately one week ago. The patient reports getting off her bed and losing her balance, after which she fell and hit her head. Patient keeps dropping things from her right hand and had slurred speech. The patients daughters also reported pt has been dragging her right lower extremity. Denies H/A, N/V, dizziness, diplopia presently. 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
[2017-05-09] MEDS: PREGABALIN 50 MG CAPSULE PO SCH ×3 (09:19→22:47)
[2017-05-09 09:57] LABS: URINE APPEARANCE SLCLOUDY; URINE BILIRUBIN NEGATIVE (NEGATIVE); URINE BLOOD 1+ (NEGATIVE); URINE COLOR YELLOW; URINE GLUCOSE (UA) NEGATIVE (NEGATIVE); URINE KETONE NEGATIVE (NEGATIVE); URINE NITRITE NEGATIVE (NEGATIVE); URINE UROBILINOGEN NEGATIVE mg/dL (0.2-1.0)
[2017-05-09 09:59] LABS: URINE LEUK ESTERASE 1+ (NEGATIVE); URINE PROTEIN 1+ (NEGATIVE)
[2017-05-09] MEDS ORDERED: PANTOPRAZOLE 40 MG TABLET (FP) PO SCH (10:00)
[2017-05-09] MEDS ORDERED: FUROSEMIDE 40 MG TABLET (FP) PO SCH (10:00)
[2017-05-09 10:02] LABS: URINE BACTERIA RARE /hpf (NONE SEEN); URINE MUCUS RARE; URINE RBC 16 /hpf (0-3); URINE WBC 23 /hpf (3-5)
--- NOTE | 2017-05-09 10:05 | CONSULT ---
Consult - text type - Consultation Consultation Note: Neurology History of Present Illness The patient is a 76 year old female with a significant PMH of HTN, diabetes, bladder cancer, stomach hernias, right knee surgery and blood clots who presented to the emergency department with right sided weakness and right knee pain s/p fall beginning approximately one week ago. The patient reports getting off her bed and losing her balance, after which she fell and hit her head. Since then, the patients daughters have noticed that the patient keeps dropping things from her right hand and slightly slurring her speech. The patients daughters also note that the patient has been dragging her right lower extremity since she fell. The patient is on Coumadin for previous DVT's. She was brought to the ER and CT head completed and showed acute 1.1cm left putamenal bleed, possibly due to HTN, though patient denies h/o HTN. Seen by NSGY, no surgical intervention. She is in ICU with close monitoring. Past History - Past Medical History Anemia: No Asthma: No Cancer: Yes (BLADDER) Cardiac Disorders: No CVA: No COPD: No CHF: No Dementia: No Diabetes: Yes GI Disorders: Yes (GERD) Disorders: Yes (BLADDER CA) HTN: Yes Hypercholesterolemia: No Liver Disease: No Seizures: No Thyroid Disease: No - Surgical History Abdominal Surgery: Yes Appendectomy: No Cardiac Surgery: No Cholecystectomy: Yes Lung Surgery: No Neurologic Surgery: No Orthopedic Surgery: Yes (R KNEE REPLACEMENT) - Suicide/Smoking/Psychosocial Hx Smoking Status: No Smoking History: Never smoked Have you smoked in the past 12 months: No Number of Cigarettes Smoked Daily: 0 Hx Alcohol Use: No Drug/Substance Use Hx: No Substance Use Type: None Hx Substance Use Treatment: No - Past Medical History Allergies/Adverse Reactions: Allergies Allergy/AdvReac Type Severity Reaction Status Date / Time latex Allergy Verified 05/08/17 19:12 Home Medications: Ambulatory Orders Insulin NPL/Insulin Lispro [Humalog Mix 75-25 Pen] 30 unit SQ AM 05/04/13 Latanoprost 0.005% Eye Drops [Xalatan 0.005% Eye Drops -] 1 drop OU HS 06/25/14 Insulin Lispro Protamin/Lispro [Humalog Mix 75-25 Vial] 27 unit SQ DAILY Furosemide [Lasix -] 40 mg PO DAILY 05/08/17 Iron 05/08/17 Lisinopril/Hydrochlorothiazide [Lisinopril-Hctz 10-12.5 mg Tab] 10 mg PO BID Multivitamins [Multivit ([facility] Formulary)] 1 mg PO DAILY 05/08/17 Omeprazole 40 mg PO 05/08/17 Pregabalin [Lyrica -] 50 mg PO BID 05/08/17 Warfarin Sodium 2.5 mg PO HS 05/08/17 Review of Systems CONSTITUTIONAL: (+) Right sided weakness. Absent: fever, chills, diaphoresis, malaise, loss of appetite HEENT: Absent: rhinorrhea, nasal congestion, throat pain, throat swelling, difficulty swallowing, mouth swelling, ear pain, eye pain, visual Changes CARDIOVASCULAR: Absent: chest pain, syncope, palpitations, irregular heart rate, lightheadedness , peripheral edema RESPIRATORY: Absent: cough, shortness of breath, dyspnea with exertion, orthopnea, wheezing, stridor, hemoptysis GASTROINTESTINAL: Absent: abdominal pain, abdominal distension, nausea, vomiting, diarrhea, constipation, melena, hematochezia GENITOURINARY: Absent: dysuria, frequency, urgency, hesitancy, hematuria, flank pain, genital pain MUSCULOSKELETAL: Absent: myalgia, arthralgia, joint swelling SKIN: Absent: rash, itching, pallor HEMATOLOGIC/IMMUNOLOGIC: Absent: easy bleeding, easy bruising, lymphadenopathy, frequent infections ENDOCRINE: Absent: unexplained weight gain, unexplained weight loss, heat intolerance, cold intolerance NEUROLOGIC: Absent: headache, focal weakness or paresthesias, dizziness, unsteady gait, seizure, mental status changes, bladder or bowel incontinence PSYCHIATRIC: Absent: anxiety, depression, suicidal or homicidal ideation, hallucinations. *Physical Exam Vital Signs Period Temp Pulse Resp BP Sys/Adorno Pulse Ox Last 24 Hr 97.7 F-98.2 F 61-76 17-20 121-162/60-74 95-99 05/08/17 21:38 GENERAL: (+) Obese. Well developed, well nourished. Awake and alert. No acute distress. HEENT: Normocephalic, atraumatic. PERRLA, EOMI. No conjunctival pallor. Sclera are non- icteric. Moist mucous membranes. Oropharynx is clear. NECK: Supple. Full ROM. No JVD. Carotid pulses 2+ and symmetric, without bruits. No thyromegaly. No lymphadenopathy. CARDIOVASCULAR: Regular rate and rhythm. No murmurs, rubs, or gallops. Distal pulses are 2+ and symmetric. PULMONARY: No evidence of respiratory distress. Lungs clear to auscultation bilaterally. No wheezing, rales or rhonchi. ABDOMINAL: Soft. Non-tender. Non-distended. No rebound or guarding. No organomegaly. Normoactive bowel sounds. MUSCULOSKELETAL Normal range of motion at all joints. No bony deformities or tenderness. No CVA tenderness. EXTREMITIES: (+) +1 pitting edema bilaterally in the lower extremities. No cyanosis. No clubbing. No calf tenderness. SKIN: Warm and dry. Normal capillary refill. No rashes. No jaundice. NEUROLOGICAL: Alert, awake, appropriate, ?speech slur, Moving all extremities purposefully. 4/ 5 of R side, decreased vibration, 1+ DTR PSYCHIATRIC: Cooperative. Good eye contact. Appropriate mood and affect. CBCD WBC 4.4 K/mm3 (4.0-10.0) 05/09/17 05:00 RBC 3.82 M/mm3 (3.60-5.2) 05/09/17 05:00 Hgb 11.1 GM/dL (10.7-15.3) 05/09/17 05:00 Hct 33.6 % (32.4-45.2) 05/09/17 05:00 MCV 88.2 fl (80-96) 05/09/17 05:00 MCHC 32.9 g/dl (32.0-36.0) 05/09/17 05:00 RDW 15.0 % (11.6-15.6) 05/09/17 05:00 Plt Count 141 K/MM3 (134-434) 05/09/17 05:00 MPV 10.5 fl (7.5-11.1) 05/09/17 05:00 CMP Sodium 141 mmol/L (136-145) 05/09/17 05:00 Potassium 4.4 mmol/L (3.5-5.1) 05/09/17 05:00 Chloride 107 mmol/L (98-107) 05/09/17 05:00 Carbon Dioxide 29 mmol/L (21-32) 05/09/17 05:00 Anion Gap 5 (8-16) L 05/09/17 05:00 BUN 26 mg/dL (7-18) H 05/09/17 05:00 Creatinine 1.5 mg/dL (0.55-1.02) H 05/09/17 05:00 Creat Clearance w eGFR 33.67 (>60) 05/09/17 05:00 Random Glucose 185 mg/dL (74-106) H D 05/09/17 05:00 Calcium 8.0 mg/dL (8.5-10.1) L 05/09/17 05:00 Total Bilirubin 0.6 mg/dL (0.2-1.0) D 05/09/17 05:00 AST 14 U/L (15-37) L 05/09/17 05:00 ALT 15 U/L (12-78) 05/09/17 05:00 Alkaline Phosphatase 131 U/L (45-117) H 05/09/17 05:00 Total Protein 6.2 g/dl (6.4-8.2) L 05/09/17 05:00 Albumin 2.9 g/dl (3.4-5.0) L 05/09/17 05:00 CARDIAC ENZYMES Creatine Kinase 178 IU/L (26-192) 05/08/17 23:00 Troponin I < 0.02 ng/ml (0.00-0.05) 05/08/17 23:00 - RADIOLOGY CT head reviewed Plan: 76 year old female with a significant PMH of HTN, diabetes, bladder cancer, stomach hernias, right knee surgery and blood clots who presented to the emergency department with right sided weakness and right knee pain s/p fall beginning approximately one week ago. The patient reports getting off her bed and losing her balance, after which she fell and hit her head. Since then, the patients daughters have noticed that the patient keeps dropping things from her right hand and slightly slurring her speech. The patients daughters also note that the patient has been dragging her right lower extremity since she fell. The patient is on Coumadin for previous DVT's. She was brought to the ER and CT head completed and showed acute 1.1cm left putamenal bleed, possibly due to HTN, though patient denies h/o HTN. Seen by NSGY, no surgical intervention. She is in ICU with close monitoring. Will order MRI brain to rule out ischemic infarct Repeat CT to confirm no expansion Tight blood pressure control, goal < 140/90 Will not need seizure medication as hemoraghe is not cortically based NSGY following as well Will need PT/OT, possibly rehab placement for R sided deficits Hold anti-plt/anti-coag Monitor exam Critical care time 35 mins
--- NOTE | 2017-05-09 13:44 | PN ---
Teaching Attending Note Name of Resident: Tawanda Castaneda ATTENDING PHYSICIAN STATEMENT I saw and evaluated the patient. I reviewed the resident's note and discussed the case with the resident. I agree with the resident's findings and plan as documented. SUBJECTIVE: Patient seen and examined in the ICU. Awake and alert. Reports continued RLE and RUL weakness. No CP or SOB. CT Head : No gross change in acute/subacute bleed Intake & Output 05/06/17 05/07/17 05/08/17 05/09/17 23:59 23:59 23:59 23:59 Intake Total 252 Output Total 800 Balance -548 Weight 230 lb 272 lb 4.8 oz Last Vital Signs Temp Pulse Resp BP Pulse Ox 98.9 F 68 13 143/63 95 05/09/17 12:00 05/09/17 13:00 05/09/17 13:00 05/09/17 13:00 05/09/17 10:23 Active Medications Furosemide (Lasix -) 40 mg PO DAILY [facility] Last Admin: 05/09/17 09:19 Dose: 40 mg Sodium Chloride (Normal Saline -) 1,000 mls @ 42 mls/hr IV ASDIR [facility] Last Admin: 05/09/17 01:16 Dose: 42 mls/hr Insulin Aspart (Novolog Mix 70/30 Vial) 27 units SQ DAILY@0700 [facility] Last Admin: 05/09/17 08:54 Dose: 27 units Pantoprazole Sodium (Protonix -) 40 mg PO DAILY [facility] Last Admin: 05/09/17 09:18 Dose: 40 mg Pregabalin (Lyrica -) 50 mg PO BID [facility] Last Admin: 05/09/17 09:19 Dose: 50 mg Eyes: Yes: PERRL HENT: Yes: (-) Icterus, (-) Pallor Cardiovascular: Yes: Regular Rate and Rhythm Respiratory: Yes: CTA Bilaterally Gastrointestinal: Yes: Normal Bowel Sounds, Abdomen, Obese Edema: No Integumentary: Yes: Other (ostomy s/p bladder ca, draining clear yellow urine) ...Motor Strength: Slightly decreased on the RUE RLE Psychiatric: Yes: Alert Labs: Laboratory Results - last 24 hr 05/08/17 05/08/17 05/08/17 07:30 20:40 20:40 WBC 4.7 D RBC 3.91 Hgb 11.2 Hct 34.4 MCV 88.0 MCH 28.7 MCHC 32.6 RDW 15.0 Plt Count 142 D MPV 10.1 Neutrophils % 70.2 Lymphocytes % 21.1 D Monocytes % 6.6 Eosinophils % 1.6 D Basophils % 0.5 D PT with INR 19.20 H INR 1.73 H D Sodium Potassium Chloride Carbon Dioxide Anion Gap BUN Creatinine Creat Clearance w eGFR POC Glucometer Random Glucose Calcium Total Bilirubin AST ALT Alkaline Phosphatase Creatine Kinase Creatine Kinase Index CK-MB (CK-2) Troponin I Total Protein Albumin Triglycerides Cholesterol Total LDL Cholesterol HDL Cholesterol Urine Color Yellow Urine Appearance Slcloudy Urine pH 7.0 Urine Protein 1+ H Urine Glucose (UA) Negative Urine Ketones Negative Urine Blood 1+ H Urine Nitrite Negative Urine Bilirubin Negative Urine Urobilinogen Negative Urine RBC 16 Urine WBC 23 Ur Epithelial Cells Rare Urine Bacteria Rare Urine Mucus Rare Blood Type Antibody Screen 05/08/17 05/08/17 05/08/17 20:40 20:40 23:00 WBC RBC Hgb Hct MCV MCH MCHC RDW Plt Count MPV Neutrophils % Lymphocytes % Monocytes % Eosinophils % Basophils % PT with INR INR Sodium Cancelled 142 Potassium Cancelled 4.4 Chloride Cancelled 105 Carbon Dioxide Cancelled 28 Anion Gap Cancelled 9 BUN Cancelled 25 H Creatinine Cancelled 1.5 H Creat Clearance w eGFR Cancelled 33.67 POC Glucometer Random Glucose Cancelled 261 H D Calcium Cancelled 8.3 L Total Bilirubin Cancelled 0.4 D AST Cancelled 17 D ALT Cancelled 16 Alkaline Phosphatase Cancelled 151 H Creatine Kinase Cancelled Creatine Kinase Index CK-MB (CK-2) Troponin I Cancelled Total Protein Cancelled 6.4 Albumin Cancelled 3.0 L Triglycerides Cancelled Cholesterol Cancelled Total LDL Cholesterol Cancelled HDL Cholesterol Cancelled Urine Color Urine Appearance Urine pH Urine Protein Urine Glucose (UA) Urine Ketones Urine Blood Urine Nitrite Urine Bilirubin Urine Urobilinogen Urine RBC Urine WBC Ur Epithelial Cells Urine Bacteria Urine Mucus Blood Type O POSITIVE Antibody Screen Negative 05/08/17 05/09/17 05/09/17 23:00 01:01 05:00 WBC 4.4 RBC 3.82 Hgb 11.1 Hct 33.6 MCV 88.2 MCH 29.0 MCHC 32.9 RDW 15.0 Plt Count 141 MPV 10.5 Neutrophils % 67.0 Lymphocytes % 22.2 Monocytes % 9.4 Eosinophils % 1.2 Basophils % 0.2 PT with INR INR Sodium Potassium Chloride Carbon Dioxide Anion Gap BUN Creatinine Creat Clearance w eGFR POC Glucometer [phone] Random Glucose Calcium Total Bilirubin AST ALT Alkaline Phosphatase Creatine Kinase 178 Creatine Kinase Index 0.5 CK-MB (CK-2) < 1.000 Troponin I < 0.02 Total Protein Albumin Triglycerides Cholesterol Total LDL Cholesterol HDL Cholesterol Urine Color Urine Appearance Urine pH Urine Protein Urine Glucose (UA) Urine Ketones Urine Blood Urine Nitrite Urine Bilirubin Urine Urobilinogen Urine RBC Urine WBC Ur Epithelial Cells Urine Bacteria Urine Mucus Blood Type Antibody Screen 05/09/17 05/09/17 05:00 05:00 WBC RBC Hgb Hct MCV MCH MCHC RDW Plt Count MPV Neutrophils % Lymphocytes % Monocytes % Eosinophils % Basophils % PT with INR 19.10 H INR 1.72 H Sodium 141 Potassium 4.4 Chloride 107 Carbon Dioxide 29 Anion Gap 5 L BUN 26 H Creatinine 1.5 H Creat Clearance w eGFR 33.67 POC Glucometer Random Glucose 185 H D Calcium 8.0 L Total Bilirubin 0.6 D AST 14 L ALT 15 Alkaline Phosphatase 131 H Creatine Kinase Creatine Kinase Index CK-MB (CK-2) Troponin I Total Protein 6.2 L Albumin 2.9 L Triglycerides Cholesterol Total LDL Cholesterol HDL Cholesterol Urine Color Urine Appearance Urine pH Urine Protein Urine Glucose (UA) Urine Ketones Urine Blood Urine Nitrite Urine Bilirubin Urine Urobilinogen Urine RBC Urine WBC Ur Epithelial Cells Urine Bacteria Urine Mucus Blood Type Antibody Screen Problem List - Problems (1) Intracranial bleed Code(s): I62.9 - NONTRAUMATIC INTRACRANIAL HEMORRHAGE, UNSPECIFIED (2) Morbid obesity Code(s): E66.01 - MORBID (SEVERE) OBESITY DUE TO EXCESS CALORIES (3) Bladder cancer Code(s): C67.9 - MALIGNANT NEOPLASM OF BLADDER, UNSPECIFIED (4) DM2 (diabetes mellitus, type 2) Code(s): E11.9 - TYPE 2 DIABETES MELLITUS WITHOUT COMPLICATIONS Qualifiers: Diabetes mellitus complication status: without complication Diabetes mellitus petroleum terminal 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
--- NOTE | 2017-05-09 17:21 | PN ---
Progress Note, Physician - Current Medication List Current Medications: Active Medications Furosemide (Lasix -) 40 mg PO DAILY [facility] Last Admin: 05/09/17 09:19 Dose: 40 mg Sodium Chloride (Normal Saline -) 1,000 mls @ 42 mls/hr IV ASDIR [facility] Last Admin: 05/09/17 01:16 Dose: 42 mls/hr Insulin Aspart (Novolog Mix 70/30 Vial) 27 units SQ DAILY@0700 [facility] Last Admin: 05/09/17 08:54 Dose: 27 units Pantoprazole Sodium (Protonix -) 40 mg PO DAILY [facility] Last Admin: 05/09/17 09:18 Dose: 40 mg Pregabalin (Lyrica -) 50 mg PO BID [facility] Last Admin: 05/09/17 09:19 Dose: 50 mg - Objective Vital Signs: Vital Signs Temperature 98.4 F 05/09/17 14:00 Pulse Rate 68 05/09/17 14:00 Respiratory Rate 14 05/09/17 14:00 Blood Pressure 155/64 05/09/17 14:00 O2 Sat by Pulse Oximetry (%) 95 05/09/17 10:23 Constitutional: Yes: No Distress HENT: Yes: Atraumatic Neck: Yes: Supple Cardiovascular: Yes: Regular Rate and Rhythm Respiratory: Yes: CTA Bilaterally Gastrointestinal: Yes: Normal Bowel Sounds Extremities: Yes: WNL Neurological: Yes: Alert, Oriented ...Motor Strength: RUE, RLE (4/5 strength) Labs: CBC, BMP 05/09/17 05:00 05/09/17 05:00 INR, PTT INR 1.72 (0.82-1.09) H 05/09/17 05:00 Problem List - Problems (1) Elevated INR Assessment/Plan: trending down coumadin on hold Code(s): R79.1 - ABNORMAL COAGULATION PROFILE (2) Intracranial bleed Assessment/Plan: hold coumadin monitor doing well reports right sided weakness Code(s): I62.9 - NONTRAUMATIC INTRACRANIAL HEMORRHAGE, UNSPECIFIED (3) Morbid obesity Code(s): E66.01 - MORBID (SEVERE) OBESITY DUE TO EXCESS CALORIES (4) DM2 (diabetes mellitus, type 2) Assessment/Plan: bgms on insulin Code(s): E11.9 - TYPE 2 DIABETES MELLITUS WITHOUT COMPLICATIONS Qualifiers: Diabetes mellitus complication status: without complication Diabetes mellitus termination clerk insulin use: without termination clerk use Qualified Code(s): E11.9 - Type 2 diabetes mellitus without complications (5) DVT (deep venous thrombosis) Code(s): I82.409 - ACUTE EMBOLISM AND THOMBOS UNSP DEEP VN UNSP LOWER EXTREMITY
--- NOTE | 2017-05-09 20:03 | CONS ---
DATE OF CONSULTATION: DATE OF DICTATION: 05/09/2017 REQUESTING PHYSICIAN: Mary Zambrano MD, Emergency Department GUEST RELATIONS COORDINATOR: Juan Manuel Smart MD, Neurosurgery. CHIEF COMPLAINT: Right hemiparesis. 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 She had gotten out of her bed and fell yesterday. She felt weak on her right side, lost balance. She did hit her head but did not lose consciousness. She denies diplopia. She has decreased dexterity and some occasional slurred speech, according to the daughter. She has been dragging her right lower extremity since about a week ago. She has no headache, nausea, vomiting, or dizziness. Past medical history is significant for obesity, diabetes, hypertension, DVT/PE. Medications currently include Lyrica, NovoLog, Lasix, and Protonix. Allergies to LATEX. FAMILY HISTORY: Noncontributory. SOCIAL HISTORY: She lives at home. She does not smoke or drink. She is retired. REVIEW OF SYSTEMS: Otherwise negative for other major cardiovascular, pulmonary, gastrointestinal, genitourinary, endocrinological, neurological, or psychological problem except for the above. PHYSICAL EXAMINATION: Vital Signs: Temperature is 98.2, blood pressure is 121/60, pulse rate of 62, O2 saturation is 95% on room air. HEENT: Normocephalic, atraumatic. Anicteric. Neck: Supple with no carotid bruit. Coronary: Regular rhythm. Lungs: Clear bilaterally. Abdomen: Benign. Extremities: No obvious signs of lower extremity DVT. Distal pulses are difficult to fully appreciate. Neurologic: She is awake, alert, and oriented x3. Cranial nerves examination is intact, 2-12. Motor examination shows right-sided hemiparesis of approximately 4-/5 strength. There are some muscle groups that are 3/5, such as right iliopsoas and right deltoid. Sensory examination is intact to light touch. She has decreased distal lower extremity vibratory sensation. Deep tendon reflexes are hyporeflexive throughout. There is no pathologic long tract sign. Gait is not tested, for safety reasons. Cerebellar examination demonstrated no resting tremor or intentional tremor. She has intact [id number]-[id number] examination. Laboratory examination shows the white blood cell count to be 4.4, hemoglobin 11.1, and platelet count is 141,000. INR is 1.73 initially and this morning is 1.72. Serum sodium is 141, potassium 4.4, BUN 26, creatinine 1.5. Alkaline phosphatase 131. Troponin is less than 0.02. CT scan of the head demonstrated a left posterior putamen 1-cm hemorrhage with mild surrounding edema and mild localized mass effect but no shift or mass effect on lateral ventricular system. There is mild cerebral atrophy. IMPRESSION: 1. 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 2. Obesity. 3. Diabetes. 4. Hypertension. RECOMMENDATIONS: The patient presents with a 1-week history of right-sided hemiparesis. She was also described to have some slurred speech and decreased dexterity of her extremities. On my examination today, she has right hemiparesis, right side, approximately 3 to 4-/5. She has had some difficulty with ambulating over the past week and this is likely the result of a hemorrhagic stroke. Blood pressure management as well as diabetes management are important to control her risk factors. Anticoagulation and anti-inflammatory medication should be held for about [address] scan of the head has been recommended and is ordered already. Unfortunately, the patient is at increased risk of developing worsening from thromboembolic event because of her prior history of DVT and PE. Consideration to treatment of her thromboembolic disease will be left to the professional expertise of intensive care unit team as well as the medical team. The patient was advised of the above. A course of rehabilitation is recommended for strengthening of her right hemiparesis. JUAN MANUEL SMART M.D. [id number]
--- NOTE | 2017-05-09 21:27 | EKG ---
Test Reason : Blood Pressure : / mmHG Vent. Rate : 070 BPM Atrial Rate : 070 BPM P-R Int : 134 ms QRS Dur : 122 ms QT Int : 442 ms P-R-T Axes : 057 -32 046 degrees QTc Int : 477 ms NORMAL SINUS RHYTHM LAFB RIGHT BUNDLE BRANCH BLOCK ABNORMAL ECG WHEN COMPARED WITH ECG OF 22-DEC-2016 15:03, NO MAJOR CHANGE SEEN REPEAT EKG IF CLINICALLY INDICATED Confirmed by SOCO DRAKE MD ([id number]) on 05/09/2017 9:26:42 PM Referred By: Confirmed By:SOCO DRAKE MD
[2017-05-09] MEDS ORDERED: INSULIN (NOVOLOG) ASPART 100 UNITS/ML 10ML VIAL SQ ONE (23:00)
[2017-05-10] MEDS: INSULIN (NOVOLOG MIX 70/30) 100 UNITS/ML MDV SQ SCH ×2 (06:10→23:36)
[2017-05-10 07:31] LABS: ALBUMIN 2.8 g/dl (3.4-5.0); ALK PHOS 130 U/L (45-117); ANION GAP 8 (8-16); BILIRUBIN,TOTAL 0.7 mg/dL (0.2-1.0); CO2 29 mmol/L (21-32); CREATININE 1.3 mg/dL (0.55-1.02); GLUCOSE,RANDOM 119 mg/dL (74-106); SGOT/AST 16 U/L (15-37); SGPT/ALT 13 U/L (12-78)
[2017-05-10 07:43] LABS: INR 1.42 (0.82-1.09); PROTHROMBIN TIME (PATIENT) 15.7 SEC (9.98-11.88)
--- NOTE | 2017-05-10 09:04 | PN ---
Progress Note (short form) - Note Progress Note: NEUROSURGERY Denies H/A, N/V, dizziness, diplopia presently. 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
[2017-05-10] MEDS: FUROSEMIDE 40 MG TABLET (FP) PO SCH (09:23)
[2017-05-10] MEDS: PREGABALIN 50 MG CAPSULE PO SCH ×2 (09:23→21:56)
[2017-05-10] MEDS: PANTOPRAZOLE 40 MG TABLET (FP) PO SCH (09:23)
--- NOTE | 2017-05-10 10:08 | PN ---
Progress Note (short form) - Note Progress Note: Neurology History of Present Illness The patient is a 76 year old female with a significant PMH of HTN, diabetes, bladder cancer, stomach hernias, right knee surgery and blood clots who presented to the emergency department with right sided weakness and right knee pain s/p fall beginning approximately one week ago. The patient reports getting off her bed and losing her balance, after which she fell and hit her head. Since then, the patients daughters have noticed that the patient kept dropping things from her right hand and slightly slurring her speech. The patients daughters also note that the patient had been dragging her right lower extremity since she fell. The patient is on Coumadin for previous DVT's. She was brought to the ER and CT head completed and showed acute 1.1cm left putamenal bleed, possibly due to HTN, though patient denies h/o HTN. Seen by NSGY, no surgical intervention. She has been downgraded from ICU to floor status. Repeat CT head on 05/09 with no significant change. Not on anticoagulation currently. Active Medications Furosemide (Lasix -) 40 mg PO DAILY [facility] Last Admin: 05/10/17 09:23 Dose: 40 mg Sodium Chloride (Normal Saline -) 1,000 mls @ 42 mls/hr IV ASDIR [facility] Last Admin: 05/09/17 23:08 Dose: 42 mls/hr Insulin Aspart (Novolog Mix 70/30 Vial) 27 units SQ DAILY@0700 [facility] Last Admin: 05/10/17 06:10 Dose: 27 units Pantoprazole Sodium (Protonix -) 40 mg PO DAILY [facility] Last Admin: 05/10/17 09:23 Dose: 40 mg Pregabalin (Lyrica -) 50 mg PO BID [facility] Last Admin: 05/10/17 09:23 Dose: 50 mg *Physical Exam Vital Signs Temperature 98.4 F 05/10/17 06:00 Pulse Rate 58 L 05/10/17 06:00 Respiratory Rate 13 05/10/17 06:00 Blood Pressure 137/65 05/10/17 06:00 O2 Sat by Pulse Oximetry (%) 95 05/09/17 10:23 GENERAL: (+) Obese. Well developed, well nourished. Awake and alert. No acute distress. HEENT: Normocephalic, atraumatic. PERRLA, EOMI. No conjunctival pallor. Sclera are non- icteric. Moist mucous membranes. Oropharynx is clear. NECK: Supple. Full ROM. No JVD. Carotid pulses 2+ and symmetric, without bruits. No thyromegaly. No lymphadenopathy. CARDIOVASCULAR: Regular rate and rhythm. No murmurs, rubs, or gallops. Distal pulses are 2+ and symmetric. PULMONARY: No evidence of respiratory distress. Lungs clear to auscultation bilaterally. No wheezing, rales or rhonchi. ABDOMINAL: Soft. Non-tender. Non-distended. No rebound or guarding. No organomegaly. Normoactive bowel sounds. MUSCULOSKELETAL Normal range of motion at all joints. No bony deformities or tenderness. No CVA tenderness. EXTREMITIES: (+) +1 pitting edema bilaterally in the lower extremities. No cyanosis. No clubbing. No calf tenderness. SKIN: Warm and dry. Normal capillary refill. No rashes. No jaundice. NEUROLOGICAL: Alert, awake, appropriate, ?speech slur, Moving all extremities purposefully. 4/ 5 of R side, decreased vibration, 1+ DTR PSYCHIATRIC: Cooperative. Good eye contact. Appropriate mood and affect. CBCD WBC 4.4 K/mm3 (4.0-10.0) 05/09/17 05:00 RBC 3.82 M/mm3 (3.60-5.2) 05/09/17 05:00 Hgb 11.1 GM/dL (10.7-15.3) 05/09/17 05:00 Hct 33.6 % (32.4-45.2) 05/09/17 05:00 MCV 88.2 fl (80-96) 05/09/17 05:00 MCHC 32.9 g/dl (32.0-36.0) 05/09/17 05:00 RDW 15.0 % (11.6-15.6) 05/09/17 05:00 Plt Count 141 K/MM3 (134-434) 05/09/17 05:00 MPV 10.5 fl (7.5-11.1) 05/09/17 05:00 CMP Sodium 143 mmol/L (136-145) 05/10/17 05:15 Potassium 4.1 mmol/L (3.5-5.1) 05/10/17 05:15 Chloride 106 mmol/L (98-107) 05/10/17 05:15 Carbon Dioxide 29 mmol/L (21-32) 05/10/17 05:15 Anion Gap 8 (8-16) 05/10/17 05:15 BUN 23 mg/dL (7-18) H 05/10/17 05:15 Creatinine 1.3 mg/dL (0.55-1.02) H 05/10/17 05:15 Creat Clearance w eGFR 39.72 (>60) 05/10/17 05:15 Calcium 8.0 mg/dL (8.5-10.1) L 05/10/17 05:15 Total Bilirubin 0.7 mg/dL (0.2-1.0) 05/10/17 05:15 AST 16 U/L (15-37) 05/10/17 05:15 ALT 13 U/L (12-78) 05/10/17 05:15 Alkaline Phosphatase 130 U/L (45-117) H 05/10/17 05:15 Total Protein 6.0 g/dl (6.4-8.2) L 05/10/17 05:15 Albumin 2.8 g/dl (3.4-5.0) L 05/10/17 05:15 - RADIOLOGY CT head reviewed X2 Plan: 76 year old female with a significant PMH of HTN, diabetes, bladder cancer, stomach hernias, right knee surgery and blood clots who presented to the emergency department with right sided weakness and right knee pain s/p fall beginning approximately one week ago. The patient reports getting off her bed and losing her balance, after which she fell and hit her head. Since then, the patients daughters have noticed that the patient keeps dropping things from her right hand and slightly slurring her speech. The patients daughters also note that the patient has been dragging her right lower extremity since she fell. The patient is on Coumadin for previous DVT's. She was brought to the ER and CT head completed and showed acute 1.1cm left putamenal bleed, possibly due to HTN, though patient denies h/o HTN. Seen by NSGY, no surgical intervention. She is in ICU with close monitoring. Repeat CT head completed and did not show acute changes MRI brain ordered to rule out infarct Tight blood pressure control, goal < 140/90 Will not need seizure medication as hemorrhage is not cortically based NSGY following as well, no surgical intervention Will need PT/OT, possibly rehab placement for R sided deficits Hold anti-plt/anti-coag Monitor exam Fall precautions recommended
--- NOTE | 2017-05-10 19:28 | PN ---
Progress Note, Physician History of Present Illness: feeling good - Current Medication List Current Medications: Active Medications Furosemide (Lasix -) 40 mg PO DAILY [facility] Last Admin: 05/10/17 09:23 Dose: 40 mg Sodium Chloride (Normal Saline -) 1,000 mls @ 42 mls/hr IV ASDIR [facility] Last Admin: 05/09/17 23:08 Dose: 42 mls/hr Insulin Aspart (Novolog Mix 70/30 Vial) 27 units SQ DAILY@0700 [facility] Last Admin: 05/10/17 06:10 Dose: 27 units Pantoprazole Sodium (Protonix -) 40 mg PO DAILY [facility] Last Admin: 05/10/17 09:23 Dose: 40 mg Pregabalin (Lyrica -) 50 mg PO BID [facility] Last Admin: 05/10/17 09:23 Dose: 50 mg - Objective Vital Signs: Vital Signs Temperature 98.2 F 05/10/17 14:19 Pulse Rate 64 05/10/17 14:19 Respiratory Rate 16 05/10/17 14:19 Blood Pressure 119/48 05/10/17 14:19 O2 Sat by Pulse Oximetry (%) 98 05/10/17 10:00 Constitutional: Yes: No Distress HENT: Yes: Atraumatic Neck: Yes: Supple Cardiovascular: Yes: Regular Rate and Rhythm Respiratory: Yes: CTA Bilaterally Gastrointestinal: Yes: Normal Bowel Sounds Extremities: Yes: WNL Neurological: Yes: Alert, Oriented ...Motor Strength: RUE, RLE (4/5 strength) Labs: CBC, BMP 05/09/17 05:00 05/10/17 05:15 INR, PTT INR 1.42 (0.82-1.09) H 05/10/17 05:15 Problem List - Problems (1) Elevated INR Assessment/Plan: trending down coumadin on hold Code(s): R79.1 - ABNORMAL COAGULATION PROFILE (2) Intracranial bleed Assessment/Plan: hold coumadin monitor doing well reports right sided weakness for brain mri Code(s): I62.9 - NONTRAUMATIC INTRACRANIAL HEMORRHAGE, UNSPECIFIED (3) Morbid obesity Code(s): E66.01 - MORBID (SEVERE) OBESITY DUE TO EXCESS CALORIES (4) DM2 (diabetes mellitus, type 2) Assessment/Plan: bgms on insulin Code(s): E11.9 - TYPE 2 DIABETES MELLITUS WITHOUT COMPLICATIONS Qualifiers: Diabetes mellitus complication status: without complication Diabetes mellitus [facility] insulin use: without [facility] use Qualified Code(s): E11.9 - Type 2 diabetes mellitus without complications (5) DVT (deep venous thrombosis) Assessment/Plan: scds Code(s): I82.409 - ACUTE EMBOLISM AND THOMBOS UNSP DEEP VN UNSP LOWER EXTREMITY
[2017-05-10] MEDS: SODIUM CHLORIDE 1,000 ML IV SCH (21:57)
[2017-05-11 06:41] LABS: INR 1.28 (0.82-1.09); PROTHROMBIN TIME (PATIENT) 14.2 SEC (9.98-11.88)
[2017-05-11] MEDS: INSULIN (NOVOLOG MIX 70/30) 100 UNITS/ML MDV SQ SCH ×2 (07:01→21:18)
--- NOTE | 2017-05-11 09:18 | PN ---
Progress Note (short form) - Note Progress Note: NEUROSURGERY In ICU Tolerating diet Some difficulty with walking secondary to R LE weakness Denies H/A, N/V, dizziness, diplopia presently. 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
[2017-05-11] MEDS: PREGABALIN 50 MG CAPSULE PO SCH ×2 (09:34→21:18)
[2017-05-11] MEDS: FUROSEMIDE 40 MG TABLET (FP) PO SCH (09:34)
[2017-05-11] MEDS: PANTOPRAZOLE 40 MG TABLET (FP) PO SCH (09:34)
--- NOTE | 2017-05-11 10:15 | PN ---
Progress Note (short form) - Note Progress Note: Neurology History of Present Illness The patient is a 76 year old female with a significant PMH of HTN, diabetes, bladder cancer, stomach hernias, right knee surgery and blood clots who presented to the emergency department with right sided weakness and right knee pain s/p fall beginning approximately one week ago. The patient reports getting off her bed and losing her balance, after which she fell and hit her head. Since then, the patients daughters have noticed that the patient kept dropping things from her right hand and slightly slurring her speech. The patients daughters also note that the patient had been dragging her right lower extremity since she fell. The patient is on Coumadin for previous DVT's. She was brought to the ER and CT head completed and showed acute 1.1cm left putamenal bleed, possibly due to HTN, though patient denies h/o HTN. Seen by NSGY, no surgical intervention. She has been downgraded from ICU to floor status. Repeat CT head on 05/09 with no significant change. Not on anticoagulation currently. She is well appearing, reports dragging of her leg but getting Physical therapy. She is being planned for rehab facility placement. Active Medications Furosemide (Lasix -) 40 mg PO DAILY [facility] Last Admin: 05/11/17 09:34 Dose: 40 mg Sodium Chloride (Normal Saline -) 1,000 mls @ 42 mls/hr IV ASDIR [facility] Last Admin: 05/10/17 21:57 Dose: 42 mls/hr Insulin Aspart (Novolog Mix 70/30 Vial) 27 units SQ DAILY@0700 [facility] Last Admin: 05/11/17 07:01 Dose: 27 units Insulin Aspart (Novolog Mix 70/30 Vial) 20 units SQ HS [facility] Last Admin: 05/10/17 23:36 Dose: 20 units Pantoprazole Sodium (Protonix -) 40 mg PO DAILY [facility] Last Admin: 05/11/17 09:34 Dose: 40 mg Pregabalin (Lyrica -) 50 mg PO BID [facility] Last Admin: 05/11/17 09:34 Dose: 50 mg *Physical Exam Vital Signs Temperature 98.2 F 05/11/17 02:00 Pulse Rate 65 05/11/17 06:00 Respiratory Rate 18 05/11/17 06:00 Blood Pressure 119/56 05/11/17 06:00 O2 Sat by Pulse Oximetry (%) 100 05/10/17 21:00 GENERAL: (+) Obese. Well developed, well nourished. Awake and alert. No acute distress. HEENT: Normocephalic, atraumatic. PERRLA, EOMI. No conjunctival pallor. Sclera are non- icteric. Moist mucous membranes. Oropharynx is clear. NECK: Supple. Full ROM. No JVD. Carotid pulses 2+ and symmetric, without bruits. No thyromegaly. No lymphadenopathy. CARDIOVASCULAR: Regular rate and rhythm. No murmurs, rubs, or gallops. Distal pulses are 2+ and symmetric. PULMONARY: No evidence of respiratory distress. Lungs clear to auscultation bilaterally. No wheezing, rales or rhonchi. ABDOMINAL: Soft. Non-tender. Non-distended. No rebound or guarding. No organomegaly. Normoactive bowel sounds. MUSCULOSKELETAL Normal range of motion at all joints. No bony deformities or tenderness. No CVA tenderness. EXTREMITIES: (+) +1 pitting edema bilaterally in the lower extremities. No cyanosis. No clubbing. No calf tenderness. SKIN: Warm and dry. Normal capillary refill. No rashes. No jaundice. NEUROLOGICAL: Alert, awake, appropriate, Moving all extremities purposefully. 4+/5 of R side, decreased vibration, 1+ DTR PSYCHIATRIC: Cooperative. Good eye contact. Appropriate mood and affect. CBCD WBC 4.4 K/mm3 (4.0-10.0) 05/09/17 05:00 RBC 3.82 M/mm3 (3.60-5.2) 05/09/17 05:00 Hgb 11.1 GM/dL (10.7-15.3) 05/09/17 05:00 Hct 33.6 % (32.4-45.2) 05/09/17 05:00 MCV 88.2 fl (80-96) 05/09/17 05:00 MCHC 32.9 g/dl (32.0-36.0) 05/09/17 05:00 RDW 15.0 % (11.6-15.6) 05/09/17 05:00 Plt Count 141 K/MM3 (134-434) 05/09/17 05:00 MPV 10.5 fl (7.5-11.1) 05/09/17 05:00 CMP Sodium 143 mmol/L (136-145) 05/10/17 05:15 Potassium 4.1 mmol/L (3.5-5.1) 05/10/17 05:15 Chloride 106 mmol/L (98-107) 05/10/17 05:15 Carbon Dioxide 29 mmol/L (21-32) 05/10/17 05:15 Anion Gap 8 (8-16) 05/10/17 05:15 BUN 23 mg/dL (7-18) H 05/10/17 05:15 Creatinine 1.3 mg/dL (0.55-1.02) H 05/10/17 05:15 Creat Clearance w eGFR 39.72 (>60) 05/10/17 05:15 Calcium 8.0 mg/dL (8.5-10.1) L 05/10/17 05:15 Total Bilirubin 0.7 mg/dL (0.2-1.0) 05/10/17 05:15 AST 16 U/L (15-37) 05/10/17 05:15 ALT 13 U/L (12-78) 05/10/17 05:15 Alkaline Phosphatase 130 U/L (45-117) H 05/10/17 05:15 Total Protein 6.0 g/dl (6.4-8.2) L 05/10/17 05:15 Albumin 2.8 g/dl (3.4-5.0) L 05/10/17 05:15 - RADIOLOGY CT head reviewed X2 Plan: 76 year old female with a significant PMH of HTN, diabetes, bladder cancer, stomach hernias, right knee surgery and blood clots who presented to the emergency department with right sided weakness and right knee pain s/p fall beginning approximately one week ago. The patient reports getting off her bed and losing her balance, after which she fell and hit her head. Since then, the patients daughters have noticed that the patient keeps dropping things from her right hand and slightly slurring her speech. The patients daughters also note that the patient has been dragging her right lower extremity since she fell. The patient is on Coumadin for previous DVT's. She was brought to the ER and CT head completed and showed acute 1.1cm left putamenal bleed, possibly due to HTN, though patient denies h/o HTN. Seen by NSGY, no surgical intervention. She is in ICU with close monitoring. Repeat CT head completed and did not show acute changes MRI brain ordered to rule out infarct Tight blood pressure control, goal < 140/90 Will not need seizure medication as hemorrhage is not cortically based NSGY following as well, no surgical intervention Will need PT/OT, possibly rehab placement for R sided deficits Hold anti-plt/anti-coag Doing well and improving strength Physical therapy, rehab placement Fall precautions recommended
--- NOTE | 2017-05-11 17:53 | PN ---
Progress Note, Physician History of Present Illness: feeling good - Current Medication List Current Medications: Active Medications Furosemide (Lasix -) 40 mg PO DAILY [facility] Last Admin: 05/11/17 09:34 Dose: 40 mg Sodium Chloride (Normal Saline -) 1,000 mls @ 42 mls/hr IV ASDIR [facility] Last Admin: 05/10/17 21:57 Dose: 42 mls/hr Insulin Aspart (Novolog Mix 70/30 Vial) 27 units SQ DAILY@0700 [facility] Last Admin: 05/11/17 07:01 Dose: 27 units Insulin Aspart (Novolog Mix 70/30 Vial) 20 units SQ HS [facility] Last Admin: 05/10/17 23:36 Dose: 20 units Pantoprazole Sodium (Protonix -) 40 mg PO DAILY [facility] Last Admin: 05/11/17 09:34 Dose: 40 mg Pregabalin (Lyrica -) 50 mg PO BID [facility] Last Admin: 05/11/17 09:34 Dose: 50 mg - Objective Vital Signs: Vital Signs Temperature 97.6 F 05/11/17 14:00 Pulse Rate 74 05/11/17 14:00 Respiratory Rate 18 05/11/17 14:00 Blood Pressure 117/65 05/11/17 14:00 O2 Sat by Pulse Oximetry (%) 100 05/11/17 10:00 Constitutional: Yes: No Distress HENT: Yes: Atraumatic Neck: Yes: Supple Cardiovascular: Yes: Regular Rate and Rhythm Respiratory: Yes: CTA Bilaterally Gastrointestinal: Yes: Normal Bowel Sounds Extremities: Yes: WNL Edema: No Peripheral Pulses WNL: Yes Neurological: Yes: Alert, Oriented ...Motor Strength: RUE, RLE (4/5) Labs: CBC, BMP 05/09/17 05:00 05/10/17 05:15 INR, PTT INR 1.28 (0.82-1.09) H 05/11/17 05:10 Problem List - Problems (1) Elevated INR Assessment/Plan: will fu hold coumadin Code(s): R79.1 - ABNORMAL COAGULATION PROFILE (2) Intracranial bleed Assessment/Plan: hold coumadin monitor ct scan done today...no new bleed Code(s): I62.9 - NONTRAUMATIC INTRACRANIAL HEMORRHAGE, UNSPECIFIED (3) Morbid obesity Code(s): E66.01 - MORBID (SEVERE) OBESITY DUE TO EXCESS CALORIES (4) DM2 (diabetes mellitus, type 2) Assessment/Plan: bgms on insulin Code(s): E11.9 - TYPE 2 DIABETES MELLITUS WITHOUT COMPLICATIONS Qualifiers: Diabetes mellitus complication status: without complication 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
[2017-05-11] MEDS: SODIUM CHLORIDE 1,000 ML IV SCH (21:21)
[2017-05-12] MEDS: INSULIN (NOVOLOG MIX 70/30) 100 UNITS/ML MDV SQ SCH ×2 (07:16→21:25)
[2017-05-12] MEDS: PREGABALIN 50 MG CAPSULE PO SCH ×2 (09:00→21:25)
[2017-05-12] MEDS: FUROSEMIDE 40 MG TABLET (FP) PO SCH (09:00)
[2017-05-12] MEDS: PANTOPRAZOLE 40 MG TABLET (FP) PO SCH (09:00)
--- NOTE | 2017-05-12 10:14 | PN ---
Progress Note (short form) - Note Progress Note: Neurology History of Present Illness The patient is a 76 year old female with a significant PMH of HTN, diabetes, bladder cancer, stomach hernias, right knee surgery and blood clots who presented to the emergency department with right sided weakness and right knee pain s/p fall beginning approximately one week ago. The patient reports getting off her bed and losing her balance, after which she fell and hit her head. Since then, the patients daughters have noticed that the patient kept dropping things from her right hand and slightly slurring her speech. The patients daughters also note that the patient had been dragging her right lower extremity since she fell. The patient is on Coumadin for previous DVT's. She was brought to the ER and CT head completed and showed acute 1.1cm left putamenal bleed, possibly due to HTN, though patient denies h/o HTN. Seen by NSGY, no surgical intervention. She has been downgraded from ICU to floor status. Repeat CT head on 05/09 with no significant change. Has evolving subacute hemoraghe. Not on anticoagulation currently. She is well appearing, reports dragging of her leg but getting Physical therapy. She is being planned for rehab facility placement. Active Medications Furosemide (Lasix -) 40 mg PO DAILY [facility] Last Admin: 05/12/17 09:00 Dose: 40 mg Sodium Chloride (Normal Saline -) 1,000 mls @ 42 mls/hr IV ASDIR [facility] Last Admin: 05/11/17 21:21 Dose: 42 mls/hr Insulin Aspart (Novolog Mix 70/30 Vial) 27 units SQ DAILY@0700 [facility] Last Admin: 05/12/17 07:16 Dose: 27 units Insulin Aspart (Novolog Mix 70/30 Vial) 20 units SQ HS [facility] Last Admin: 05/11/17 21:18 Dose: 20 units Pantoprazole Sodium (Protonix -) 40 mg PO DAILY [facility] Last Admin: 05/12/17 09:00 Dose: 40 mg Pregabalin (Lyrica -) 50 mg PO BID [facility] Last Admin: 05/12/17 09:00 Dose: 50 mg *Physical Exam Vital Signs Period Temp Pulse Resp BP Sys/Adorno Pulse Ox Last 24 Hr 97.6 F-98.4 F 58-77 18-20 108-146/58-65 98-98 GENERAL: (+) Obese. Well developed, well nourished. Awake and alert. No acute distress. HEENT: Normocephalic, atraumatic. PERRLA, EOMI. No conjunctival pallor. Sclera are non- icteric. Moist mucous membranes. Oropharynx is clear. NECK: Supple. Full ROM. No JVD. Carotid pulses 2+ and symmetric, without bruits. No thyromegaly. No lymphadenopathy. CARDIOVASCULAR: Regular rate and rhythm. No murmurs, rubs, or gallops. Distal pulses are 2+ and symmetric. PULMONARY: No evidence of respiratory distress. Lungs clear to auscultation bilaterally. No wheezing, rales or rhonchi. ABDOMINAL: Soft. Non-tender. Non-distended. No rebound or guarding. No organomegaly. Normoactive bowel sounds. MUSCULOSKELETAL Normal range of motion at all joints. No bony deformities or tenderness. No CVA tenderness. EXTREMITIES: (+) +1 pitting edema bilaterally in the lower extremities. No cyanosis. No clubbing. No calf tenderness. SKIN: Warm and dry. Normal capillary refill. No rashes. No jaundice. NEUROLOGICAL: Alert, awake, appropriate, Moving all extremities purposefully. 4+/5 of R side, decreased vibration, 1+ DTR PSYCHIATRIC: Cooperative. Good eye contact. Appropriate mood and affect. CBCD WBC 4.4 K/mm3 (4.0-10.0) 05/09/17 05:00 RBC 3.82 M/mm3 (3.60-5.2) 05/09/17 05:00 Hgb 11.1 GM/dL (10.7-15.3) 05/09/17 05:00 Hct 33.6 % (32.4-45.2) 05/09/17 05:00 MCV 88.2 fl (80-96) 05/09/17 05:00 MCHC 32.9 g/dl (32.0-36.0) 05/09/17 05:00 RDW 15.0 % (11.6-15.6) 05/09/17 05:00 Plt Count 141 K/MM3 (134-434) 05/09/17 05:00 MPV 10.5 fl (7.5-11.1) 05/09/17 05:00 CMP Sodium 143 mmol/L (136-145) 05/10/17 05:15 Potassium 4.1 mmol/L (3.5-5.1) 05/10/17 05:15 Chloride 106 mmol/L (98-107) 05/10/17 05:15 Carbon Dioxide 29 mmol/L (21-32) 05/10/17 05:15 Anion Gap 8 (8-16) 05/10/17 05:15 BUN 23 mg/dL (7-18) H 05/10/17 05:15 Creatinine 1.3 mg/dL (0.55-1.02) H 05/10/17 05:15 Creat Clearance w eGFR 39.72 (>60) 05/10/17 05:15 Calcium 8.0 mg/dL (8.5-10.1) L 05/10/17 05:15 Total Bilirubin 0.7 mg/dL (0.2-1.0) 05/10/17 05:15 AST 16 U/L (15-37) 05/10/17 05:15 ALT 13 U/L (12-78) 05/10/17 05:15 Alkaline Phosphatase 130 U/L (45-117) H 05/10/17 05:15 Total Protein 6.0 g/dl (6.4-8.2) L 05/10/17 05:15 Albumin 2.8 g/dl (3.4-5.0) L 05/10/17 05:15 - RADIOLOGY CT head reviewed Plan: 76 year old female with a significant PMH of HTN, diabetes, bladder cancer, stomach hernias, right knee surgery and blood clots who presented to the emergency department with right sided weakness and right knee pain s/p fall beginning approximately one week ago. The patient reports getting off her bed and losing her balance, after which she fell and hit her head. Since then, the patients daughters have noticed that the patient keeps dropping things from her right hand and slightly slurring her speech. The patients daughters also note that the patient has been dragging her right lower extremity since she fell. The patient is on Coumadin for previous DVT's. She was brought to the ER and CT head completed and showed acute 1.1cm left putamenal bleed, possibly due to HTN, though patient denies h/o HTN. Seen by NSGY, no surgical intervention. Tight blood pressure control, goal < 140/90 Will not need seizure medication as hemorrhage is not cortically based Hold anti-plt/anti-coag Doing well and improving strength Physical therapy, rehab placement Fall precautions recommended
--- NOTE | 2017-05-12 18:03 | PN ---
Progress Note, Physician - Current Medication List Current Medications: Active Medications Furosemide (Lasix -) 40 mg PO DAILY [facility] Last Admin: 05/12/17 09:00 Dose: 40 mg Sodium Chloride (Normal Saline -) 1,000 mls @ 42 mls/hr IV ASDIR [facility] Last Admin: 05/11/17 21:21 Dose: 42 mls/hr Insulin Aspart (Novolog Mix 70/30 Vial) 27 units SQ DAILY@0700 [facility] Last Admin: 05/12/17 07:16 Dose: 27 units Insulin Aspart (Novolog Mix 70/30 Vial) 20 units SQ HS [facility] Last Admin: 05/11/17 21:18 Dose: 20 units Pantoprazole Sodium (Protonix -) 40 mg PO DAILY [facility] Last Admin: 05/12/17 09:00 Dose: 40 mg Pregabalin (Lyrica -) 50 mg PO BID [facility] Last Admin: 05/12/17 09:00 Dose: 50 mg - Objective Vital Signs: Vital Signs Temperature 97.9 F 05/12/17 13:51 Pulse Rate 62 05/12/17 13:51 Respiratory Rate 18 05/12/17 13:51 Blood Pressure 145/55 05/12/17 13:51 O2 Sat by Pulse Oximetry (%) 98 05/12/17 09:00 Constitutional: Yes: No Distress HENT: Yes: Atraumatic Neck: Yes: Supple Cardiovascular: Yes: Regular Rate and Rhythm Respiratory: Yes: CTA Bilaterally Gastrointestinal: Yes: Normal Bowel Sounds Extremities: Yes: WNL Neurological: Yes: Alert, Oriented Labs: CBC, BMP 05/09/17 05:00 05/10/17 05:15 INR, PTT INR 1.28 (0.82-1.09) H 05/11/17 05:10 Problem List - Problems (1) Elevated INR Assessment/Plan: will fu hold coumadin Code(s): R79.1 - ABNORMAL COAGULATION PROFILE (2) Intracranial bleed Assessment/Plan: due to the fall, mild surrounding edema pt was on blood thinner hold coumadin monitor ct scan done today...no new bleed Code(s): I62.9 - NONTRAUMATIC INTRACRANIAL HEMORRHAGE, UNSPECIFIED (3) Morbid obesity Code(s): E66.01 - MORBID (SEVERE) OBESITY DUE TO EXCESS CALORIES (4) DM2 (diabetes mellitus, type 2) Assessment/Plan: bgms on insulin Code(s): E11.9 - TYPE 2 DIABETES MELLITUS WITHOUT COMPLICATIONS Qualifiers: Diabetes mellitus complication status: without complication 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
[2017-05-12] MEDS: SODIUM CHLORIDE 1,000 ML IV SCH (21:26)
[2017-05-13 03:48] VITALS: TEMP 97.7
[2017-05-13] MEDS ORDERED: HEMOQUE TEST 1 EACH EACH ONE (05:28)
[2017-05-13] MEDS: INSULIN (NOVOLOG MIX 70/30) 100 UNITS/ML MDV SQ SCH (06:19)
[2017-05-13] MEDS: FUROSEMIDE 40 MG TABLET (FP) PO SCH (09:43)
[2017-05-13] MEDS: PANTOPRAZOLE 40 MG TABLET (FP) PO SCH (09:43)
[2017-05-13 11:48] VITALS: BP 125/49; PULSE 66
--- NOTE | 2017-05-16 19:22 | DS ---
Physical Examination Vital Signs: Vital Signs Temperature 97.7 F 05/13/17 02:00 Pulse Rate 66 05/13/17 11:47 Respiratory Rate 14 05/13/17 11:47 Blood Pressure 125/49 05/13/17 11:47 O2 Sat by Pulse Oximetry (%) 98 05/13/17 09:00 Labs: CBC, BMP 05/09/17 05:00 05/10/17 05:15 Discharge Summary Reason For Visit: MORBID OBESITY,TYPE 2 DIABETES MELLITUS, Current Active Problems Acute renal failure (Acute) Elevated INR (Acute) Hypoglycemia (Acute) cerebral hemorrhage due to fall, ct scan mild surrounding edema - Instructions Disposition: [facility] - Home Medications Comprehensive Discharge Medication List: Ambulatory Orders Insulin NPL/Insulin Lispro [Humalog Mix 75-25 Pen] 30 unit SQ AM 05/04/13 Latanoprost 0.005% Eye Drops [Xalatan 0.005% Eye Drops -] 1 drop OU HS 06/25/14 Insulin Lispro Protamin/Lispro [Humalog Mix 75-25 Vial] 27 unit SQ DAILY Furosemide [Lasix -] 40 mg PO DAILY 05/08/17 Iron 05/08/17 Lisinopril/Hydrochlorothiazide [Lisinopril-Hctz 10-12.5 mg Tab] 10 mg PO BID Multivitamins [Multivit ([facility] Formulary)] 1 mg PO DAILY 05/08/17 Omeprazole 40 mg PO 05/08/17 Pregabalin [Lyrica -] 50 mg PO BID 05/08/17
== END 2017-05-13 15:17 | DRG 85 ==
LOC: JER 18:41 → JERBED 23:10 → JICU 05-09 00:46 → J2W 05-09 22:16
PROVIDERS: ADMIT Internal Medicine; ATTEND Internal Medicine
DX: S06.300A Unspecified focal traumatic brain injury without loss of consciousness, initial encounter (principal); G93.6 Cerebral edema; G81.91 Hemiplegia, unspecified affecting right dominant side; Z68.41 Body mass index [BMI] 40.0-44.9, adult; I10 Essential (primary) hypertension; E11.9 Type 2 diabetes mellitus without complications; E66.01 Morbid (severe) obesity due to excess calories; R29.703 NIHSS score 3; Z79.4 Long term (current) use of insulin; C67.9 Malignant neoplasm of bladder, unspecified; W06.XXXA Fall from bed, initial encounter; Y93.89 Activity, other specified; Y92.092 Bedroom in other non-institutional residence as the place of occurrence of the external cause; Y99.8 Other external cause status; Z86.718 Personal history of other venous thrombosis and embolism; Z86.711 Personal history of pulmonary embolism; R79.1 Abnormal coagulation profile
CPT/HCPCS: 36415; 70450-TC; 71010-TC; 80053; 81003; 81015; 82553; 84484; 85025; 85610; 86850; 86900; 86901; 87081; 93005; 93010; 97116-GP; 97161-GP; 99284-25

== ENCOUNTER 2018-03-14 01:59 | Inpatient (IN) | payer OTHER ==
[2018-03-14] MEDS ORDERED: SODIUM CHLORIDE 1,000 ML IV STA (02:12)
[2018-03-14] MEDS ORDERED: ONDANSETRON 4 MG/2 ML VIAL IVPUSH ONE (02:15)
[2018-03-14] MEDS ORDERED: ACETAMINOPHEN 1000 MG/100 ML VIAL (NON FORMULARY) IVPB ONE ×2 (02:32→09:18)
[2018-03-14] MEDS ORDERED: ACETAMINOPHEN INJECTION 100 ML IVPB ONE (02:39)
[2018-03-14] MEDS ORDERED: ONDANSETRON 4 MG/2 ML VIAL ONE (02:39)
[2018-03-14 02:42] LABS: BASO % 0.6 % (0-2.0); EOS % 0.5 % (0-4.5); HEMATOCRIT 37.9 % (32.4-45.2); HEMOGLOBIN 12.1 GM/dL (10.7-15.3); LYMPH % 7.9 % (8-40); MCH 28.5 pg (25.7-33.7); MEAN PLT VOLUME 10.4 fl (7.5-11.1); MONO % 3.8 % (3.8-10.2); NEUT % 87.2 % (42.8-82.8); PLATELET COUNT 146 K/MM3 (134-434); RBC 4.25 M/mm3 (3.60-5.2); RDW 14.9 % (11.6-15.6); WHITE BLOOD COUNT 7.2 K/mm3 (4.0-10.0)
--- NOTE | 2018-03-14 02:42 | PDOC ---
History of Present Illness - General Chief Complaint: Pain Stated Complaint: ABD PAIN Time Seen by Provider: 03/14/18 02:03 History Source: Patient - History of Present Illness Initial Comments: 03/14/18 02:36 77-year-old female with nausea vomiting and left-sided abdominal pain 3 hours prior to arrival. Patient reports that she ate corn for dinner and feels like "it's stuck in my hernia ". Daughter reports that patient has not had a bowel movement for 2 days and has tried MiraLAX and Pepto-Bismol at home with no symptom relief. Patient reports that she is able to pass gas without difficulty. Patient has a history of diabetes, hypertension, bladder CA status post ileal conduit. Denies fever, chills , chest pain, headache Past History - Past Medical History Allergies/Adverse Reactions: Allergies Allergy/AdvReac Type Severity Reaction Status Date / Time latex Allergy Verified 03/14/18 02:08 Home Medications: Ambulatory Orders Insulin NPL/Insulin Lispro [Humalog Mix 75-25 Pen] 30 unit SQ AM 05/04/13 Latanoprost 0.005% Eye Drops [Xalatan 0.005% Eye Drops -] 1 drop OU HS 06/25/14 Insulin Lispro Protamin/Lispro [Humalog Mix 75-25 Vial] 27 unit SQ HS 12/22/16 Furosemide [Lasix -] 40 mg PO DAILY 05/08/17 Lisinopril/Hydrochlorothiazide [Lisinopril-Hctz 10-12.5 mg Tab] 10 mg PO DAILY 05/08/17 Multivitamins [Multivit ([facility] Formulary)] 1 mg PO DAILY 05/08/17 Omeprazole 40 mg PO BID 05/08/17 Pregabalin [Lyrica -] 50 mg PO TID 05/08/17 Pramipexole Dihydrochloride [Mirapex -] 0.5 mg PO BID 03/14/18 Ammonium Lactate Cream [Lac-Hydrin 12% *Cream*] 1 applic TP BID 03/15/18 Ascorbic Acid [Vitamin C] 500 mg BID 03/15/18 Calcium Carbonate/Vitamin D3 [Calcium 600 + Vit D 400 Softgl] 600 mg BID Ferrous Sulfate [Iron] 320 mg DAILY 03/15/18 Metoclopramide HCl [Reglan] 10 mg PO BID 03/15/18 Anemia: No Asthma: No Cancer: Yes (BLADDER) Cardiac Disorders: No CVA: No COPD: No CHF: No Dementia: No Diabetes: Yes GI Disorders: Yes (GERD) Disorders: Yes (BLADDER CA) HTN: Yes Hypercholesterolemia: No Liver Disease: No Seizures: No Thyroid Disease: No - Surgical History Abdominal Surgery: Yes Appendectomy: No Cardiac Surgery: No Cholecystectomy: Yes Lung Surgery: No Neurologic Surgery: No Orthopedic Surgery: Yes (R KNEE REPLACEMENT) - Suicide/Smoking/Psychosocial Hx Smoking Status: No Smoking History: Never smoked Have you smoked in the past 12 months: No Number of Cigarettes Smoked Daily: 0 Information on smoking cessation initiated: No Hx Alcohol Use: No Drug/Substance Use Hx: No Substance Use Type: None Hx Substance Use Treatment: No Abd/GI Specific PMHX - Complaint Specific PMHX Gall Bladder Disease: Yes (cholecystectomy) Review of Systems - Review of Systems Able to Perform ROS?: Yes Is the patient limited Bangladeshi proficient: No Constitutional: No: Symptoms Reported, See HPI, Chills, Diaphoresis, Fever, Loss of Appetite, Malaise, Night Sweats, Weakness, Weight Stable, Unintentional Wgt. Loss, Unexplained wgt Loss, Other ABD/GI: Yes: Constipated, Nausea, Vomiting, Abdominal cramping : No: Symptoms Reported, See HPI, Burning, Dysuria, Discharge, Frequency, Flank Pain, Hematuria, Incontinence, Pain, Urgency, Testicular Mass, Testicular Swelling, Lesions, Testicular Pain, Other Musculoskeletal: No: Symptoms Reported, See HPI, Back Pain, Gout, Joint Pain, Joint Swelling, Muscle Pain, Muscle Weakness, Neck Pain, Joint Stiffness, Other *Physical Exam - Vital Signs Last Vital Signs Temp Pulse Resp BP Pulse Ox 98.5 F 69 16 147/59 96 03/14/18 02:02 03/14/18 02:02 03/14/18 02:02 03/14/18 02:02 03/14/18 02:02 - Physical Exam General Appearance: Yes: Appropriately Dressed Respiratory/Chest: positive: Lungs Clear, Normal Breath Sounds Cardiovascular: positive: Regular Rhythm, Regular Rate, S1, S2 Gastrointestinal/Abdominal: positive: Tender (Left side tenderness), Soft, Decreased BS, Distended, Tenderness. negative: Rebound Musculoskeletal: positive: Normal Inspection Extremity: positive: Normal Capillary Refill, Normal Inspection, Normal Range of Motion Integumentary: positive: Normal Color, Dry, Warm Neurologic: positive: Fully Oriented, Alert, Normal Mood/Affect Heart Score/ECG Review - ECG Intrepretation Rhythm: Regular Rhythm Comment:: 03/14/18 06:01 NSR : 70bpm ED Treatment Course - LABORATORY CBC & Chemistry Diagram: 03/15/18 06:40 03/15/18 06:40 - RADIOLOGY Radiology Studies Ordered: Category Date Time Status ABDOMEN & PELVIS CT WITH CONTR [CT] Stat CT Scan 03/14/18 02:33 Ordered Progress Note - Progress Note Progress Note: A: SBO P: cbc cmp IVF tylenol CTAP pain control NGT Medical Decision Making - Medical Decision Making 03/14/18 05:59 Lung bases are clear. The visualized cardiac chambers are normal size and configuration. Status post cholecystectomy without biliary duct dilation. Normal unenhanced liver, pancreas, spleen, adrenal glands and kidneys. There is a small bowel obstruction with small bowel dilated at 3.5 cm. The transition point likely in the left ventral hernia. 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 No abscess or free air.. There is no aortic aneurysm. There is no significant retroperitoneal lymphadenopathy. Infrarenal IVC filter is noted. The pelvic small and large bowel are normal. There is no evidence of appendicitis although the appendix is not clearly visualized. Status post hysterectomy. Urinary bladder is unremarkable. There is no pelvic free fluid. No discrete pelvic lymphadenopathy is identified 03/14/18 06:18 Patient to be admitted under hospitalist service 03/14/18 06:53 *DC/Admit/Observation/Transfer Diagnosis at time of Disposition: SBO (small bowel obstruction) - Discharge Dispostion Condition at time of disposition: Fair Decision to Admit order: Yes - Referrals - Patient Instructions - Post Discharge Activity
[2018-03-14 03:09] LABS: ALBUMIN 3.3 g/dl (3.4-5.0); ALK PHOS 195 U/L (45-117); ANION GAP 4 (8-16); BILIRUBIN,TOTAL 0.4 mg/dL (0.2-1.0); BLOOD UREA NITROGEN 23 mg/dL (7-18); CALCIUM 8.9 mg/dL (8.5-10.1); CHLORIDE 109 mmol/L (98-107); CO2 30 mmol/L (21-32); CREATININE 1.5 mg/dL (0.55-1.02); GLUCOSE,RANDOM 130 mg/dL (74-106); LIPASE 57 U/L (73-393); POTASSIUM 5.4 mmol/L (3.5-5.1); SGOT/AST 17 U/L (15-37); SGPT/ALT 19 U/L (12-78); SODIUM 143 mmol/L (136-145)
[2018-03-14] MEDS ORDERED: morphine CARPU-JECT 4 MG/1 ML DISP.SYRIN IVPUSH ONE ×2 (04:11→06:16)
[2018-03-14] MEDS ORDERED: METOCLOPRAMIDE HCL INJECTION 10 MG/2 ML VIAL IVPB ONE (04:12)
[2018-03-14] MEDS ORDERED: METOCLOPRAMIDE HCL INJECTION 10 MG/2 ML VIAL ONE (04:18)
[2018-03-14] MEDS ORDERED: morphine SULFATE 4 MG/ML VIAL ONE ×2 (04:19→06:17)
[2018-03-14 06:08] LABS: URINE APPEARANCE CLOUDY; URINE BILIRUBIN NEGATIVE (<2.0 mg/dL); URINE COLOR YELLOW; URINE GLUCOSE (UA) NEGATIVE (NEGATIVE); URINE KETONE NEGATIVE (NEGATIVE); URINE LEUK ESTERASE TRACE (NEGATIVE); URINE NITRITE NEGATIVE (NEGATIVE); URINE UROBILINOGEN NEGATIVE mg/dL (0.2-1.0)
[2018-03-14 06:09] LABS: URINE PROTEIN 1+ (NEGATIVE)
[2018-03-14 06:14] LABS: EPI CELLS RARE /HPF (FEW); URINE BACTERIA RARE /hpf (NONE SEEN); URINE MUCUS RARE
[2018-03-14] MEDS ORDERED: morphine CARPU-JECT 2 MG/1 ML DISP.SYRIN IVPUSH PRN (07:45)
[2018-03-14] MEDS ORDERED: SODIUM CHLORIDE 1,000 ML IV SCH (07:45)
--- NOTE | 2018-03-14 07:50 | HP ---
CHIEF COMPLAINT: abdominal pain PCP: home visit doctors/Dr. Gomez HISTORY OF PRESENT ILLNESS: 77 year old female with a hx of HTN, DM, bladder CA s/p bladder resection and ileostomy conduit with nephrostomy (draining urine), multiple SBOs, parkinsons, PE presents for 2 day history of nausea, vomiting, abdominal pain. She reports that she was eating corn 2 days ago when she developed a crampy pain in the LUQ that progressed to multiple episodes of non-bloody, non-bilious vomiting. Additionally reports no bowel movements in 2 days. Patient's daughter at bedside states that she had a similar episode around 6 months ago, for which she managed conservatively at home and it spontaneously resolved. Patient denies chest pain, shortness of breath, fevers or chills. Reports multiple admissions for small bowel obstruction in the past. States that she had a colonoscopy with Dr. Mercado several years ago that was normal. Patient's daughter states that she has had a hx of PE for which she was on coumadin, but stopped 6 months ago due to TIA, patient has a IVC filter placed ER course was notable for: (1) CT scan showing SBO 2/2 L ventral hernia (2) Cre 1.5 (baseline) (3) EKG NSR with RBBB (old) and Qtc of 462 Recent Travel: denies PAST MEDICAL HISTORY: as stated above PAST SURGICAL HISTORY: R knee replacement, cholecystectomy, bladder resection s/ p ileostomy conduit with nephrostomy, IVC filter placement Social History: Smoking: denies Alcohol: denies Drugs: denies Allergies latex Allergy (Verified 03/14/18 02:08) HOME MEDICATIONS: Home Medications Medication Instructions Recorded Insulin NPL/Insulin Lispro 30 unit SQ AM 05/04/13 [Humalog Mix 75-25 Pen] Latanoprost 0.005% Eye Drops 1 drop OU HS 06/25/14 [Xalatan 0.005% Eye Drops -] Insulin Lispro Protamin/Lispro 27 unit SQ HS 12/22/16 [Humalog Mix 75-25 Vial] Furosemide [Lasix -] 40 mg PO DAILY 05/08/17 Iron 05/08/17 Lisinopril/Hydrochlorothiazide 10 mg PO BID 05/08/17 [Lisinopril-Hctz 10-12.5 mg Tab] Multivitamins [Multivit ([facility] 1 mg PO DAILY 05/08/17 Formulary)] Omeprazole 40 mg PO DAILY 05/08/17 Pregabalin [Lyrica -] 50 mg PO BID 05/08/17 REVIEW OF SYSTEMS CONSTITUTIONAL: Absent: fever, chills, diaphoresis, generalized weakness, malaise, loss of appetite, weight change HEENT: Absent: rhinorrhea, nasal congestion, throat pain, throat swelling, difficulty swallowing, mouth swelling, ear pain, eye pain, visual changes CARDIOVASCULAR: Absent: chest pain, syncope, palpitations, irregular heart rate, lightheadedness , peripheral edema RESPIRATORY: Absent: cough, shortness of breath, dyspnea with exertion, orthopnea, wheezing, stridor, hemoptysis GASTROINTESTINAL:abdominal pain, abdominal distension, nausea, vomiting, constipation Absent: diarrhea, melena, hematochezia GENITOURINARY: Absent: dysuria, frequency, urgency, hesitancy, hematuria, flank pain, genital pain MUSCULOSKELETAL: Absent: myalgia, arthralgia, joint swelling, back pain, neck pain SKIN: Absent: rash, itching, pallor HEMATOLOGIC/IMMUNOLOGIC: Absent: easy bleeding, easy bruising, lymphadenopathy, frequent infections ENDOCRINE: Absent: unexplained weight gain, unexplained weight loss, heat intolerance, cold intolerance NEUROLOGIC: Absent: headache, focal weakness or paresthesias, dizziness, unsteady gait, seizure, mental status changes, bladder or bowel incontinence PSYCHIATRIC: Absent: anxiety, depression, suicidal or homicidal ideation, hallucinations. PHYSICAL EXAMINATION Vital Signs - 24 hr 03/14/18 03/14/18 03/14/18 02:02 02:18 05:55 Temperature 98.5 F Pulse Rate 69 Pulse Rate [ 62 Left] Respiratory 16 20 Rate Blood Pressure 147/59 Blood Pressure 142/55 [Right Arm] O2 Sat by Pulse 96 99 99 Oximetry (%) 03/14/18 07:37 Temperature 98.1 F Pulse Rate Pulse Rate [ 81 Left] Respiratory 18 Rate Blood Pressure Blood Pressure 152/65 [Right Arm] O2 Sat by Pulse 98 Oximetry (%) GENERAL: A&Ox3, no acute distress EYES: PERRLA, EOMI ENT: Moist mucus membranes, NGT in place at 35 cm NECK: No JVD appreciated LUNGS: CTA, no wheezes HEART: RRR, systolic murmur appreciated in the 2nd R intercostal space ABDOMEN: Obese, tympanitic, bowel sounds diminshed, tender to palpation diffusely, ileostomy conduit noted in RLQ draining clear yellow urine, umbilical hernia noted that is mildly tender to palpation MUSCULOSKELETAL: No CVA Tenderness EXTREMITIES: 2+ pulses, 1+ pitting edema noted on exam NEUROLOGICAL: Cranial nerves II-XII intact. No focal deficits Laboratory Results - last 24 hr 03/14/18 03/14/18 03/14/18 02:30 02:30 02:30 WBC 7.2 RBC 4.25 Hgb 12.1 Hct 37.9 MCV 89.0 MCH 28.5 MCHC 32.0 RDW 14.9 Plt Count 146 MPV 10.4 Absolute Neuts (auto) 6.3 Neutrophils % 87.2 H D Lymphocytes % 7.9 L D Monocytes % 3.8 Eosinophils % 0.5 Basophils % 0.6 Nucleated RBC % 0 Sodium 143 Potassium 5.4 H Chloride 109 H Carbon Dioxide 30 Anion Gap 4 L BUN 23 H Creatinine 1.5 H Creat Clearance w eGFR 33.58 Random Glucose 130 H Calcium 8.9 Total Bilirubin 0.4 AST 17 ALT 19 Alkaline Phosphatase 195 H Troponin I < 0.02 Total Protein 7.0 Albumin 3.3 L Lipase 57 L Urine Color Urine Appearance Urine pH Ur Specific Eldridge Urine Protein Urine Glucose (UA) Urine Ketones Urine Blood Urine Nitrite Urine Bilirubin Urine Urobilinogen Ur Leukocyte Esterase Urine WBC (Auto) Urine RBC (Auto) Ur Epithelial Cells Urine Bacteria Urine Mucus 03/14/18 05:50 WBC RBC Hgb Hct MCV MCH MCHC RDW Plt Count MPV Absolute Neuts (auto) Neutrophils % Lymphocytes % Monocytes % Eosinophils % Basophils % Nucleated RBC % Sodium Potassium Chloride Carbon Dioxide Anion Gap BUN Creatinine Creat Clearance w eGFR Random Glucose Calcium Total Bilirubin AST ALT Alkaline Phosphatase Troponin I Total Protein Albumin Lipase Urine Color Yellow Urine Appearance Cloudy Urine pH 7.0 Ur Specific Eldridge 1.013 Urine Protein 1+ H Urine Glucose (UA) Negative Urine Ketones Negative Urine Blood 1+ H Urine Nitrite Negative Urine Bilirubin Negative Urine Urobilinogen Negative Ur Leukocyte Esterase Trace Urine WBC (Auto) 28 Urine RBC (Auto) 13 Ur Epithelial Cells Rare Urine Bacteria Rare Urine Mucus Rare EKG: NSR with RBBB (old) and Qtc 462 CT Abdomen/Pelvis: SBO 2/2 L ventral hernia CXR: clear with NGT in esophagus (called to advance by 10cm) ASSESSMENT/PLAN: 77 year old female hx of HTN, DM, bladder CA s/p bladder resection and ileostomy conduit with nephrostomy (draining urine), multiple SBOs, parkinsons, PE presents for 2 day hx of N/V/constipation, abdominal pain and admitted for treatment of small bowel obstruction #Small Bowel Obstruction: 2/2 large ventral hernia, patient's pain has improved with morphine and she is in no acute distress -NPO -NGT was placed in ED, called by radiology to advance tube by 10cm. Advanced the tube and ordered stat CXR -fluids w/ NS @ 50cc/hr 1 bag -surgery consultation Dr. Greene appreciated -repeat CBC and chemistries in the AM -monitor vitals -morphine 2mg q6h PRN severe pain -tylenol 650q4 PRN moderate pain #Diabetes Mellitus: glucose stable -BGMs q6h -ISS, careful while NPO #B/L leg edema: patient's daughter denies history of heart failure -will hydrate patient with only 50cc/hr at the moment due to SBO #Chronic Kidney Disease: stable -creatinine at baseline of 1.5 #Hypertension: patient's hypertension is currently controlled -patient is on lisinopril 10/HCTZ 12.5, hold diuretic while getting fluids #Parkinson's disease: patient's daughter does not recall the medication that the patient is on -confirmed with pharmacy, patient is on pramipexole 0.5mg BID, will restart #FEN -NPO for now -potassium slightly elevated, will repeat in AM -NS @ 50cc/hr #Prophylaxis -heparin 5000 TID #Disposition -admit to med surg Visit type - Emergency Visit Emergency Visit: Yes ED Registration Date: 03/14/18 Care time: The patient presented to the Emergency Department on the above date and was hospitalized for further evaluation of their emergent condition. - New Patient This patient is new to me today: Yes Date on this admission: 03/14/18 - Critical Care Critical Care patient: No Hospitalist Screening - Colonoscopy Questionnaire Colonoscopy Questionnaire: Colonoscopy Questionnaire - Patient: 50 - 75 years old and never had a screening colonoscopy: Unknown History of colon or rectal polyps, or CA: Unknown History of IBD, Crohn's disease or UC: Unknown History of abdominal radiation therapy as a child: Unknown - Relative: 1 with colon or rectal CA, or polyps at age 60 or younger: Unknown Colon or rectal CA diagnosed at age 45 or younger: Unknown Multiple relatives with colon or rectal CA: Unknown - Outcome: Screening Result: Negative Screen
--- NOTE | 2018-03-14 09:06 | CONSULT ---
Consult Consult Specialty:: General surgery Referred by:: Lori Sagastume MD - ED Reason for Consultation:: SBO - History of Present Illness Chief Complaint: Abdominal Pain History of Present Illness: 77 yo female with PMH HTN, DM, bladder CA s/p bladder resection and ileostomy conduit with nephrostomy (draining urine), multiple SBOs, parkinsons, PE presents for 2 day history of nausea, vomiting, abdominal pain. She reports that she was eating corn 2 days ago when she developed a crampy pain in the LUQ that progressed to multiple episodes of non-bloody, non-bilious vomiting. Additionally reports no bowel movements in 2 days. Patient's daughter at bedside states that she had a similar episode around 6 months ago, for which she managed conservatively at home and it spontaneously resolved. Patient denies chest pain, shortness of breath, fevers or chills. Reports multiple admissions for small bowel obstruction in the past. States that she had a colonoscopy with Dr. Mercado several years ago that was normal. We were asked to assess. - History Source History Provided By: Patient, Medical Record Limitations to Obtaining History: No Limitations - Past Medical History Cardio/Vascular: Yes: AFIB, HTN Gastrointestinal: Yes: GERD Musculoskeletal: Yes: Osteoarthritis - Past Surgical History Past Surgical History: Yes: Joint Replacement (R knee) - Alcohol/Substance Use Hx Alcohol Use: No - Smoking History Smoking history: Never smoked Have you smoked in the past 12 months: No Aproximately how many cigarettes per day: 0 Home Medications - Allergies Allergies/Adverse Reactions: Allergies Allergy/AdvReac Type Severity Reaction Status Date / Time latex Allergy Verified 03/14/18 02:08 - Home Medications Home Medications: Ambulatory Orders Insulin NPL/Insulin Lispro [Humalog Mix 75-25 Pen] 30 unit SQ AM 05/04/13 Latanoprost 0.005% Eye Drops [Xalatan 0.005% Eye Drops -] 1 drop OU HS 06/25/14 Insulin Lispro Protamin/Lispro [Humalog Mix 75-25 Vial] 27 unit SQ HS 12/22/16 Furosemide [Lasix -] 40 mg PO DAILY 05/08/17 Lisinopril/Hydrochlorothiazide [Lisinopril-Hctz 10-12.5 mg Tab] 10 mg PO BID Multivitamins [Multivit ([facility] Formulary)] 1 mg PO DAILY 05/08/17 Omeprazole 40 mg PO DAILY 05/08/17 Pregabalin [Lyrica -] 50 mg PO BID 05/08/17 Pramipexole Dihydrochloride [Mirapex -] 0.5 mg PO BID 03/14/18 Review of Systems - Review of Systems Constitutional: denies: Chills, Fever Eyes: denies: Blurred Vision, Recent Change in Vision Neck: denies: Pain on Movement, Swollen Glands Cardiovascular: denies: Chest Pain, Palpitations Respiratory: denies: Cough, SOB Gastrointestinal: denies: Constipation, Diarrhea Genitourinary: denies: Discharge, Dysuria Integumentary: denies: Erythema, Lesions, Lump Neurological: denies: Seizure, Syncope Endocrine: denies: Unexplained Weight Gain, Unexplained Weight Loss Hematology/Lymphatic: denies: Easily Bruised, Excessive Bleeding Psychiatric: denies: Altered Sleep Pattern, Anxiety Physical Exam Vital Signs: Vital Signs Temperature 98.1 F 03/14/18 07:37 Pulse Rate 81 03/14/18 07:37 Respiratory Rate 18 03/14/18 07:37 Blood Pressure 152/65 03/14/18 07:37 O2 Sat by Pulse Oximetry (%) 98 03/14/18 07:37 Vital Signs Period Temp Pulse Resp BP Sys/Adorno Pulse Ox Last 24 Hr 97.6 F-99.4 F 68-91 16-20 120-150/56-84 98-98 Intake & Output 03/14/18 03/14/18 03/15/18 15:59 23:59 07:59 Intake Total 450 0 Output Total 500 450 700 Balance -50 -450 -700 Weight 275 lb 9.6 oz Intake: IV 250 Normal Saline - 1,000 ml 250 @ 50 mls/hr IV ASDIR [facility] Rx#:[id number] IVPB 200 Oral 0 0 Output: Gastric Drainage 450 Urine 500 700 Ileoconduit 500 700 Other: Voiding Method Ileal Conduit (Right) Ileal Conduit (Right) Ileal Conduit ( Right) Bowel Movement No No Height 5 ft 2 in Body Mass Index (BMI) 50.3 Weight Measurement Method Built in [facility] Constitutional: Yes: No Distress, Calm, Obese Eyes: Yes: Conjunctiva Clear, EOM Intact HENT: Yes: Atraumatic, Normocephalic Neck: Yes: Supple, Trachea Midline Cardiovascular: Yes: Regular Rate and Rhythm, S1, S2 Respiratory: Yes: Regular, CTA Bilaterally Gastrointestinal: Yes: Normal Bowel Sounds, Soft, Abdomen, Obese, Distention, Hernia (Lower midline incisional hernia fully reducible, ureterostomy which is functional with darkly discolored skin surrounding.), Tenderness (slight tenderness without rebound or guarding), Vomiting (NGT in place and functioning) . No: Tenderness, Epigastrium, Tenderness, Rebound Renal/: No: CVA Tenderness - Left, CVA Tenderness - Right Musculoskeletal: No: Muscle Pain, Muscle Weakness Extremities: No: Cool, Cyanosis Edema: No Peripheral Pulses WNL: Yes Integumentary: Yes: Incision. No: Erythema, Jaundice Neurological: Yes: Alert, Oriented Psychiatric: Yes: Alert, Oriented Labs: CBC, BMP 03/14/18 02:30 03/14/18 02:30 Imaging - Results Cat Scan: Report Reviewed, Image Reviewed (Broad based infraumbilical incisonal hernia with samll intestines and colon. no sign of bowel ischemia.) Problem List - Problems (1) Ventral incisional hernia without obstruction or gangrene Assessment/Plan: 77yo female MMP chronically incarcerated ventral incisional hernia, fully reducible adjacent to the functional ureterostomy, imaging read as SBO, no pertonitis, passing flatus with no BM yet. No acute surgical intervention at this time. NPO and IVF hydration NGT decompression Abdominal Xray Trend labs and replete electrolytes will follow Thank you for the opportunity to participate in the care of this patient. Code(s): K43.2 - INCISIONAL HERNIA WITHOUT OBSTRUCTION OR GANGRENE (2) SBO (small bowel obstruction) Code(s): K56.609 - UNSP INTESTNL OBST, UNSP TO PARTIAL VERSUS COMPLETE OBST (3) Acute renal failure Code(s): N17.9 - ACUTE KIDNEY FAILURE, UNSPECIFIED Qualifiers: Acute renal failure type: unspecified Qualified Code(s): N17.9 - Acute kidney failure, unspecified (4) Bladder cancer Code(s): C67.9 - MALIGNANT NEOPLASM OF BLADDER, UNSPECIFIED (5) DM2 (diabetes mellitus, type 2) Code(s): E11.9 - TYPE 2 DIABETES MELLITUS WITHOUT COMPLICATIONS Qualifiers: Diabetes mellitus snf insulin use: without termite renewal inspector use Diabetes mellitus complication status: without complication Qualified Code(s): E11.9 - Type 2 diabetes mellitus without complications (6) HTN (hypertension) Code(s): I10 - ESSENTIAL (PRIMARY) HYPERTENSION (7) Morbid obesity Code(s): E66.01 - MORBID (SEVERE) OBESITY DUE TO EXCESS CALORIES (8) Parkinson disease Code(s): G20 - PARKINSON'S DISEASE
[2018-03-14] MEDS ORDERED: MORPHINE SULFATE 2 MG/ML VIAL IVPUSH PRN (09:20)
[2018-03-14] MEDS ORDERED: PANTOPRAZOLE 40 MG TABLET (FP) PO SCH (10:00)
[2018-03-14] MEDS ORDERED: PATIENT'S OWN MEDICATION (NON-FORMULARY) (Omeprazole [Omeprazole] 40 MG) PO SCH (10:00)
[2018-03-14] MEDS ORDERED: PATIENT'S OWN MEDICATION (NON-FORMULARY) (Lisinopril/Hydrochlorothiazide [Lisinopril-Hctz PO SCH (10:00)
--- NOTE | 2018-03-14 10:06 | EKG ---
Test Reason : Blood Pressure : / mmHG Vent. Rate : 070 BPM Atrial Rate : 070 BPM P-R Int : 132 ms QRS Dur : 120 ms QT Int : 428 ms P-R-T Axes : 052 -26 049 degrees QTc Int : 462 ms NORMAL SINUS RHYTHM RIGHT BUNDLE BRANCH BLOCK ABNORMAL ECG WHEN COMPARED WITH ECG OF 08-MAY-2017 19:51, NO SIGNIFICANT CHANGE WAS FOUND Confirmed by RICARDO LOPEZ MD ([id number]) on 03/14/2018 10:05:43 AM Referred By: Confirmed By:RICARDO LOPEZ MD
[2018-03-14] MEDS: LATANOPROST 0.005% OPHTH SOLN 2.5ML BOTTLE OU SCH (11:17)
[2018-03-14] MEDS: PANTOPRAZOLE SODIUM 40 MG VIAL IVPUSH SCH (11:57)
[2018-03-14] MEDS: INSULIN SLIDING SCALE (NOVOLOG) 1 VIAL SQ SCH ×3 (12:01→21:41)
[2018-03-14 12:26] VITALS: BMI 50.3
--- NOTE | 2018-03-14 14:57 | PN ---
Teaching Attending Note Name of Resident: Valentin Sagastume ATTENDING PHYSICIAN STATEMENT I saw and evaluated the patient. I reviewed the resident's note and discussed the case with the resident. I agree with the resident's findings and plan as documented. SUBJECTIVE:77 year old female with a hx of HTN, DM, bladder CA s/p bladder resection and ileostomy conduit with nephrostomy (draining urine), multiple SBOs , parkinsons, PE presents for 2 day history of nausea, vomiting, abdominal pain. states started 2 days ago when eating corn and progressively worsened. pain is epigastric area and crampy in nature. improved with NGT placement. multiple non bloody and non bilious episodes of vomiting. had similar episode several months ago but improved on its own at home. denies CP, SOB, fever, chills, C/D. OBJECTIVE: Last Vital Signs Temp Pulse Resp BP Pulse Ox 98.4 F 68 16 135/56 98 03/14/18 14:18 03/14/18 14:18 03/14/18 14:18 03/14/18 14:18 03/14/18 09:47 General NAD CV S1 S2 RRR Lungs CTA B/L no wheezing/rales/rhonchi Abdomen soft +distended hypoactive BS. +epigastric and RUQ tenderness Extremities no pedal edema ASSESSMENT AND PLAN: 77 year old female with a hx of HTN, DM, bladder CA s/p bladder resection and ileostomy conduit with nephrostomy (draining urine), multiple SBOs, parkinsons, PE presents for 2 day history of nausea, vomiting, abdominal pain and found to have SBO 1. SBO- due to L periumbilical hernia. NGT has been placed with copious bile return, NPO, IVF,pain and nausea control. Surgery consulted. medical management at this time. will likely eventually require hernia repair. 2. Hyperkalemia- no peaked T waves on EKG. repeat 3. CKD- at baseline 4. HTN- controlled. hold oral agents at this time 5. DM- BGM and iss 6. bladder ca s/p resection with ileostomy and nephrostomy- good UOP at this time. monitor while NPO 7. Parkinson 8. PE s/p IVC filter- no longer on anticoagulation due to CVA in the past? will need to confirm 9. DVT ppx- Hep sq
[2018-03-14] MEDS ORDERED: PT OWN MED DRAWER 7, Y5N ONE ×2 (16:06→21:09)
[2018-03-14] MEDS: PRAMIPEXOLE DIHYDROCHLORIDE 0.5 MG TABLET PO SCH ×2 (16:09→21:38)
[2018-03-14] MEDS: HEPARIN NA (PORCINE) 5,000 UNITS/ML 1ML VIAL SQ SCH ×2 (16:09→21:38)
[2018-03-14] MEDS: MORPHINE SULFATE 2 MG/ML VIAL IVPUSH PRN (18:09)
[2018-03-15] MEDS: MORPHINE SULFATE 2 MG/ML VIAL IVPUSH PRN (06:26)
[2018-03-15] MEDS: INSULIN SLIDING SCALE (NOVOLOG) 1 VIAL SQ SCH ×4 (07:01→22:22)
[2018-03-15] MEDS: HEPARIN NA (PORCINE) 5,000 UNITS/ML 1ML VIAL SQ SCH ×3 (07:01→22:21)
[2018-03-15 07:17] LABS: HEMATOCRIT 32.8 % (32.4-45.2); HEMOGLOBIN 10.6 GM/dL (10.7-15.3); MCH 28.9 pg (25.7-33.7); MCHC 32.4 g/dl (32.0-36.0); MEAN CELL VOLUME 89.2 fl (80-96); MEAN PLT VOLUME 10.2 fl (7.5-11.1); PLATELET COUNT 111 K/MM3 (134-434); RBC 3.67 M/mm3 (3.60-5.2); WHITE BLOOD COUNT 4.1 K/mm3 (4.0-10.0)
[2018-03-15 07:31] LABS: ALBUMIN 2.7 g/dl (3.4-5.0); ALK PHOS 161 U/L (45-117); ANION GAP 7 (8-16); BILIRUBIN,TOTAL 1.2 mg/dL (0.2-1.0); BLOOD UREA NITROGEN 16 mg/dL (7-18); CHLORIDE 110 mmol/L (98-107); CO2 26 mmol/L (21-32); CREATININE 1.2 mg/dL (0.55-1.02); GLUCOSE,RANDOM 141 mg/dL (74-106); MAGNESIUM 1.8 mg/dL (1.8-2.4); POTASSIUM 4.8 mmol/L (3.5-5.1); SGOT/AST 20 U/L (15-37); SGPT/ALT 15 U/L (12-78); SODIUM 143 mmol/L (136-145); TOT PROT 5.6 g/dl (6.4-8.2)
--- NOTE | 2018-03-15 07:34 | PN ---
Progress Note, Physician Chief Complaint: SBO History of Present Illness: 77 yo female with PMH HTN, DM, bladder CA s/p bladder resection and ileostomy conduit with nephrostomy (draining urine), multiple SBOs, parkinsons, PE presents for 2 day history of nausea, vomiting, abdominal pain. Stable overnight , NGT is functioning only scant output. She reports passing flatus. - Current Medication List Current Medications: Active Medications Diphenhydramine HCl (Benadryl Injection -) 12.5 mg IVPUSH Q4H PRN PRN Reason: FOR ITCHING Last Admin: 03/15/18 06:40 Dose: 12.5 mg Heparin Sodium (Porcine) (Heparin -) 5,000 unit SQ TID [facility] Last Admin: 03/15/18 07:01 Dose: Not Given Insulin Aspart (Novolog Vial Sliding Scale -) 1 vial SQ ACHS [facility]; Protocol Last Admin: 03/15/18 07:01 Dose: Not Given Latanoprost (Xalatan 0.005% Eye Drops -) 1 drop OU HS [facility] Last Admin: 03/14/18 11:17 Dose: 1 drop Morphine Sulfate (Morphine Sulfate) 2 mg IVPUSH Q4H PRN PRN Reason: PAIN LEVEL 7 - 10 Last Admin: 03/15/18 06:26 Dose: 2 mg Pantoprazole Sodium (Protonix Iv) 40 mg IVPUSH DAILY [facility] Last Admin: 03/14/18 11:57 Dose: 40 mg Pramipexole Dihydrochloride (Mirapex -) 0.5 mg PO BID [facility] Last Admin: 03/14/18 21:38 Dose: Not Given - Objective Vital Signs: Vital Signs Temperature 99.1 F 03/15/18 06:00 Pulse Rate 78 03/15/18 06:00 Respiratory Rate 20 03/15/18 06:00 Blood Pressure 144/84 03/15/18 06:00 O2 Sat by Pulse Oximetry (%) 98 03/14/18 21:00 Vital Signs Period Temp Pulse Resp BP Sys/Adorno Pulse Ox Last 24 Hr 97.6 F-99.4 F 68-91 16-20 120-152/56-84 98-98 Intake & Output 03/14/18 03/14/18 03/15/18 15:59 23:59 07:59 Intake Total 450 0 Output Total 500 450 700 Balance -50 -450 -700 Weight 275 lb 9.6 oz Intake: IV 250 Normal Saline - 1,000 ml 250 @ 50 mls/hr IV ASDIR [facility] Rx#:[id number] IVPB 200 Oral 0 0 Output: Gastric Drainage 450 Urine 500 700 Ileoconduit 500 700 Other: Voiding Method Ileal Conduit (Right) Ileal Conduit (Right) Ileal Conduit ( Right) Bowel Movement No No Height 5 ft 2 in Body Mass Index (BMI) 50.3 Weight Measurement Method Built in [facility] Constitutional: Yes: No Distress, Calm, Obese Eyes: Yes: Conjunctiva Clear, EOM Intact HENT: Yes: Atraumatic, Normocephalic Neck: Yes: Supple, Trachea Midline Cardiovascular: Yes: Regular Rate and Rhythm, S1, S2 Respiratory: Yes: Regular, CTA Bilaterally Gastrointestinal: Yes: Normal Bowel Sounds, Soft, Abdomen, Obese, Distention, Hernia (large lower midline incsion), Other. No: Tenderness, Tenderness, Epigastrium, Tenderness, Rebound (NGT in place) Genitourinary: No: CVA Tenderness - Left, CVA Tenderness - Right Musculoskeletal: No: Muscle Pain, Muscle Weakness Extremities: No: Cool, Cyanosis Edema: No Peripheral Pulses WNL: Yes Peripheral Pulses: Left Radial: 2+, Right Radial: 2+, Left Doralis Pedis: 2+, Right Dorsalis Pedis: 2+ Integumentary: Yes: Rash (peristomal ureterostomy). No: Jaundice Neurological: Yes: Alert, Oriented Psychiatric: Yes: Alert, Oriented Labs: CBC, BMP 03/15/18 06:40 Problem List - Problems (1) Ventral incisional hernia without obstruction or gangrene Assessment/Plan: 77yo female MMP chronically incarcerated ventral incisional hernia, fully reducible adjacent to the functional ureterostomy, imaging read as SBO, no pertonitis, passing flatus with no BM yet. No acute surgical intervention at this time. NPO and IVF hydration NGT decompression Abdominal Xray today Trend labs and replete electrolytes will follow Thank you for the opportunity to participate in the care of this patient. Code(s): K43.2 - INCISIONAL HERNIA WITHOUT OBSTRUCTION OR GANGRENE (2) SBO (small bowel obstruction) Code(s): K56.609 - UNSP INTESTNL OBST, UNSP TO PARTIAL VERSUS COMPLETE OBST (3) Acute renal failure Code(s): N17.9 - ACUTE KIDNEY FAILURE, UNSPECIFIED Qualifiers: Acute renal failure type: unspecified Qualified Code(s): N17.9 - Acute kidney failure, unspecified (4) Bladder cancer Code(s): C67.9 - MALIGNANT NEOPLASM OF BLADDER, UNSPECIFIED (5) DM2 (diabetes mellitus, type 2) Code(s): E11.9 - TYPE 2 DIABETES MELLITUS WITHOUT COMPLICATIONS Qualifiers: Diabetes mellitus termite control technician insulin use: without fci use Diabetes mellitus complication status: without complication Qualified Code(s): E11.9 - Type 2 diabetes mellitus without complications (6) HTN (hypertension) Code(s): I10 - ESSENTIAL (PRIMARY) HYPERTENSION (7) Morbid obesity Code(s): E66.01 - MORBID (SEVERE) OBESITY DUE TO EXCESS CALORIES (8) Parkinson disease Code(s): G20 - PARKINSON'S DISEASE
[2018-03-15 07:42] LABS: INR 1.06 (0.82-1.09)
[2018-03-15] MEDS: PRAMIPEXOLE DIHYDROCHLORIDE 0.5 MG TABLET PO SCH ×2 (10:04→22:22)
[2018-03-15] MEDS: PANTOPRAZOLE SODIUM 40 MG VIAL IVPUSH SCH (10:08)
[2018-03-15] MEDS: SODIUM CHLORIDE 0.45% 1,000 ML IV SCH (12:27)
--- NOTE | 2018-03-15 17:58 | PN ---
Physical Exam: SUBJECTIVE: Patient seen and examined this morning while sitting in her chair. No new complaints. Continues to have constant, mid-epigastric and LLQ pain. Denies fevers, chills, chest pain, SOB, nausea, vomiting. OBJECTIVE: Vital Signs Period Temp Pulse Resp BP Sys/Adorno Pulse Ox Last 24 Hr 97.8 F-99.4 F 51-91 18-20 110-154/58-84 98-98 GENERAL: The patient is awake, alert, and fully oriented, in no acute distress. NOSE: NG Tube present in right nare at 35cm THROAT: Oropharynx clear without erythema or exudates, moist mucous membranes LUNGS: Breath sounds equal, clear to auscultation bilaterally, no wheezes, no crackles HEART: Regular rate and rhythm, S1, S2 present ABDOMEN: Obese, Soft, nontender abdomen with decreased bowel sounds. Ileostomy conduit placed in RLQ draining clear yellow urine, umbilical hernia noted EXTREMITIES: 1+ peripheral edema Laboratory Results - last 24 hr 03/14/18 03/14/18 03/15/18 17:10 21:40 06:24 WBC RBC Hgb Hct MCV MCH MCHC RDW Plt Count MPV PT with INR INR Sodium Potassium Chloride Carbon Dioxide Anion Gap BUN Creatinine Creat Clearance w eGFR POC Glucometer 153 141 138 Random Glucose Calcium Phosphorus Magnesium Total Bilirubin AST ALT Alkaline Phosphatase Total Protein Albumin Blood Type Antibody Screen 03/15/18 03/15/18 03/15/18 06:40 06:40 06:40 WBC 4.1 RBC 3.67 Hgb 10.6 L Hct 32.8 MCV 89.2 MCH 28.9 MCHC 32.4 RDW 15.0 Plt Count 111 L D MPV 10.2 PT with INR 12.00 INR 1.06 Sodium 143 Potassium 4.8 Chloride 110 H Carbon Dioxide 26 Anion Gap 7 L BUN 16 Creatinine 1.2 H Creat Clearance w eGFR 43.45 POC Glucometer Random Glucose 141 H Calcium 8.0 L Phosphorus 3.0 Magnesium 1.8 Total Bilirubin 1.2 H AST 20 ALT 15 Alkaline Phosphatase 161 H D Total Protein 5.6 L Albumin 2.7 L Blood Type Antibody Screen 03/15/18 03/15/18 06:40 11:50 WBC RBC Hgb Hct MCV MCH MCHC RDW Plt Count MPV PT with INR INR Sodium Potassium Chloride Carbon Dioxide Anion Gap BUN Creatinine Creat Clearance w eGFR POC Glucometer 152 Random Glucose Calcium Phosphorus Magnesium Total Bilirubin AST ALT Alkaline Phosphatase Total Protein Albumin Blood Type O POSITIVE Antibody Screen Negative Active Medications Ascorbic Acid (Vitamin C -) 500 mg PO BID [facility] Calcium Carbonate/Cholecalciferol (Os-Jay 500+D -) 500 tab PO BID [facility] Diphenhydramine HCl (Benadryl Injection -) 12.5 mg IVPUSH Q4H PRN PRN Reason: FOR ITCHING Last Admin: 03/15/18 06:40 Dose: 12.5 mg Furosemide (Lasix -) 40 mg PO DAILY [facility] Heparin Sodium (Porcine) (Heparin -) 5,000 unit SQ TID [facility] Last Admin: 03/15/18 13:11 Dose: Not Given Sodium Chloride (1/2 Normal Saline) 1,000 mls @ 50 mls/hr IV ASDIR [facility] Last Admin: 03/15/18 12:27 Dose: 50 mls/hr Insulin Aspart (Novolog Vial Sliding Scale -) 1 vial SQ ACHS [facility]; Protocol Last Admin: 03/15/18 12:24 Dose: 2 units Lactic Acid (Lac-Hydrin 12) 1 applic TP BID [facility] Latanoprost (Xalatan 0.005% Eye Drops -) 1 drop OU HS [facility] Last Admin: 03/14/18 11:17 Dose: 1 drop Metoclopramide HCl (Reglan -) 10 mg PO BID [facility] Morphine Sulfate (Morphine Sulfate) 2 mg IVPUSH Q4H PRN PRN Reason: PAIN LEVEL 7 - 10 Last Admin: 03/15/18 06:26 Dose: 2 mg Multivitamins/Minerals/Vitamin C (Tab-A-Vit -) 1 tab PO DAILY [facility] Pantoprazole Sodium (Protonix Iv) 40 mg IVPUSH DAILY [facility] Last Admin: 03/15/18 10:08 Dose: 40 mg Pramipexole Dihydrochloride (Mirapex -) 0.5 mg PO BID [facility] Last Admin: 03/15/18 10:04 Dose: 0.5 mg IMAGING: - CT Abdomen/Pelvis: Recurrent small bowel obstruction apparently secondary to a left periumbilical hernia. Development of nonspecific mild mesenteric soft tissue stranding is noted within the pelvis. Right sided parastomal hernia with an ileal conduit. No interval change is seen. Status post cystectomy. Status post hysterectomy. Sigmoid diverticulosis. There is partial imaging of at least moderate atherosclerotic coronary calcifications. - CXR (03/14 @ 06:17): NG tube tip in distal esophagus. Please advance. - CXR (03/14 @ 09:01): The tip of NG tube in distal thoracic esophagus. - CXR (03/14 @ 11:34): Imaging reveals a prominent mediastinum, degenerative changes, excessive soft tissues and an NG tube with its tip below the GE junction. Correlation recommended. - Abdomen XRay: The lung bases are clear. NG tube extending below the EG junction over the region of the stomach. No pneumoperitoneum is seen. No evidence of distended loops of small bowel, or colon. Nonspecific gas pattern of the loop of small bowel projecting over the left iliac wing. Oral contrast is seen in the nondilated ascending, transverse, proximal descending colon. Multiple surgical clips are noted in pelvis. IVC filter is noted. ASSESSMENT/PLAN: 77 y/o F with PMhx of HTN, DM, bladder CA s/p bladder resection and ileostomy conduit with nephrostomy (draining urine), multiple SBOs, parkinsons, PE was admitted for small bowel obstruction 1. Small Bowel Obstruction - Likely due to large ventral hernia - NG Tube placed in ED, Dr. Enrique spoke with Dr. Greene who said it can be d/c 'ed, change diet to clears and advance as tolerated, Rec's appreciated - Continue Morphine 2 mg IVPUSH Q4H PRN - Continue 1/2 Normal Saline 50 mls/hr IV - Continue Metoclopramide HCl 10 mg PO BID - Daily Abdominal XRay 2. DM - BGM - ISS 3. Chronic Kidney Disease - Cr baseline 1.5, today 1.2 - Continue to monitor 4. HTN - Controlled - Home dose diuretic held while on fluids 5. Parkinson's disease - Continue Pramipexole Dihydrochloride (Mirapex) 0.5 mg PO BID 6. FEN - 1/2 Normal Saline 50 mls/hr IV - Lytes wnl, replete as needed - Clear liquid diet, advance as tolerated 7. PPx - Continue Heparin 5,000 unit SQ TID Visit type - Emergency Visit Emergency Visit: Yes ED Registration Date: 03/14/18 Care time: The patient presented to the Emergency Department on the above date and was hospitalized for further evaluation of their emergent condition. - New Patient This patient is new to me today: Yes Date on this admission: 03/15/18 - Critical Care Critical Care patient: No
--- NOTE | 2018-03-15 18:50 | PN ---
Teaching Attending Note Name of Resident: Heather Valencia ATTENDING PHYSICIAN STATEMENT I saw and evaluated the patient. I reviewed the resident's note and discussed the case with the resident. I agree with the resident's findings and plan as documented. SUBJECTIVE:pain has resolved. had 1 large soft BM today. denies CP, SOB, fever, chills, N/V/ OBJECTIVE: Last Vital Signs Temp Pulse Resp BP Pulse Ox 99.4 F 85 20 154/66 98 03/15/18 17:06 03/15/18 17:06 03/15/18 17:06 03/15/18 17:06 03/15/18 09:00 Intake & Output 03/12/18 03/13/18 03/14/18 03/15/18 23:59 23:59 23:59 23:59 Intake Total 450 0 Output Total 950 701 Balance -500 -701 Weight 275 lb 9.6 oz General NAD CV S1 S2 RRR Lungs CTA B/L no wheezing/rales/rhonchi Abdomen soft +distended hypoactive BS. no tenderness Extremities no pedal edema ASSESSMENT AND PLAN: 77 year old female with a hx of HTN, DM, bladder CA s/p bladder resection and ileostomy conduit with nephrostomy (draining urine), multiple SBOs, parkinsons, PE presents for 2 day history of nausea, vomiting, abdominal pain and found to have SBO 1. SBO- due to L periumbilical hernia. AXR shows contrast in the colon showing resolution of SBO. had BM. will d/c NGT and advance diet. start with clear liquids tongiht. instructed pt to notifty RN and stop eating if develops any pain or nausea. can d/c IVF once tolerating diet. nausea and pain controlled. spoke with surgery. 2. Hyperkalemia- no peaked T waves on EKG. resolved 3. CKD- at baseline 4. HTN- controlled. hold oral agents at this time 5. DM- BGM and iss 6. bladder ca s/p resection with ileostomy and nephrostomy- good UOP at this time. 7. Parkinson 8. PE s/p IVC filter- no longer on anticoagulation due to subarachnoid bleed after mechanical fall. 9. DVT ppx- Hep sq 10. spoke with daughter present at bedside. all questions answered. verbalized understanding and agreement with plan. possible d/c tomorrow
[2018-03-15] MEDS: METOCLOPRAMIDE HCL 10 MG TABLET (FP) PO SCH (22:22)
[2018-03-15] MEDS: LATANOPROST 0.005% OPHTH SOLN 2.5ML BOTTLE OU SCH (22:22)
[2018-03-15] MEDS: ASCORBIC ACID 500 MG TABLET (FP) PO SCH (22:22)
[2018-03-15] MEDS: CALCIUM 500MG/VIT-D 200 UNITS COMBO TABLET (FP) PO SCH (22:27)
[2018-03-15] MEDS: AMMONIUM LACTATE 12% LOTION 225 GM BOTTLE TP SCH (22:39)
[2018-03-16] MEDS: INSULIN SLIDING SCALE (NOVOLOG) 1 VIAL SQ SCH ×4 (06:29→21:45)
[2018-03-16] MEDS: HEPARIN NA (PORCINE) 5,000 UNITS/ML 1ML VIAL SQ SCH ×4 (06:29→21:44)
--- NOTE | 2018-03-16 06:59 | PN ---
Physical Exam: SUBJECTIVE: Patient seen and examined this morning at bedside. Complains of 5 episodes of odd smelling, loose, nonbloody, green diarrhea accompanied by cramping abdominal pain. Additionally feels some dizziness. Tolerating clear liquid diet well, Requesting solid foods now. After lunch, patient continued to have abdominal pain with her lunch (Squash soup) and continued to have 2 more BM's. Denies fevers, chills, chest pain, SOB, Nausea, vomiting, constipation. No other acute overnight events as per nursing. OBJECTIVE: Vital Signs Period Temp Pulse Resp BP Sys/Adorno Pulse Ox Last 24 Hr 97.8 F-99.7 F 51-98 18-20 110-154/58-90 98-98 GENERAL: The patient is awake, alert, and fully oriented, in no acute distress. NOSE: NG Tube no longer present, patent nares THROAT: Oropharynx clear without erythema or exudates, moist mucous membranes LUNGS: Breath sounds equal, clear to auscultation bilaterally, no wheezes, no crackles HEART: Regular rate and rhythm, S1, S2 present ABDOMEN: Obese, Soft, nontender abdomen with decreased bowel sounds. Ileostomy conduit placed in RLQ draining clear yellow urine, umbilical hernia noted Laboratory Results - last 24 hr 03/15/18 03/15/18 03/15/18 06:40 06:40 06:40 WBC 4.1 RBC 3.67 Hgb 10.6 L Hct 32.8 MCV 89.2 MCH 28.9 MCHC 32.4 RDW 15.0 Plt Count 111 L D MPV 10.2 PT with INR 12.00 INR 1.06 Sodium 143 Potassium 4.8 Chloride 110 H Carbon Dioxide 26 Anion Gap 7 L BUN 16 Creatinine 1.2 H Creat Clearance w eGFR 43.45 POC Glucometer Random Glucose 141 H Calcium 8.0 L Phosphorus 3.0 Magnesium 1.8 Total Bilirubin 1.2 H AST 20 ALT 15 Alkaline Phosphatase 161 H D Total Protein 5.6 L Albumin 2.7 L Blood Type Antibody Screen 03/15/18 03/15/18 03/15/18 06:40 11:50 17:04 WBC RBC Hgb Hct MCV MCH MCHC RDW Plt Count MPV PT with INR INR Sodium Potassium Chloride Carbon Dioxide Anion Gap BUN Creatinine Creat Clearance w eGFR POC Glucometer 152 110 Random Glucose Calcium Phosphorus Magnesium Total Bilirubin AST ALT Alkaline Phosphatase Total Protein Albumin Blood Type O POSITIVE Antibody Screen Negative 03/15/18 03/16/18 22:20 05:58 WBC RBC Hgb Hct MCV MCH MCHC RDW Plt Count MPV PT with INR INR Sodium Potassium Chloride Carbon Dioxide Anion Gap BUN Creatinine Creat Clearance w eGFR POC Glucometer 206 140 Random Glucose Calcium Phosphorus Magnesium Total Bilirubin AST ALT Alkaline Phosphatase Total Protein Albumin Blood Type Antibody Screen Active Medications Ascorbic Acid (Vitamin C -) 500 mg PO BID [facility] Last Admin: 03/16/18 09:39 Dose: 500 mg Calcium Carbonate/Cholecalciferol (Os-Jay 500+D -) 1 tab PO BID [facility] Last Admin: 03/16/18 12:19 Dose: 1 tab Diphenhydramine HCl (Benadryl Injection -) 12.5 mg IVPUSH Q4H PRN PRN Reason: FOR ITCHING Last Admin: 03/15/18 22:22 Dose: 12.5 mg Heparin Sodium (Porcine) (Heparin -) 5,000 unit SQ TID [facility] Last Admin: 03/16/18 14:30 Dose: Not Given Insulin Aspart (Novolog Vial Sliding Scale -) 1 vial SQ ACHS [facility]; Protocol Last Admin: 03/16/18 12:19 Dose: 4 units Lactic Acid (Lac-Hydrin 12) 1 applic TP BID [facility] Last Admin: 03/16/18 10:25 Dose: 1 applic Latanoprost (Xalatan 0.005% Eye Drops -) 1 drop OU HS [facility] Last Admin: 03/15/18 22:22 Dose: 1 drop Lisinopril (Prinivil) 10 mg PO DAILY [facility] Last Admin: 03/16/18 10:25 Dose: 10 mg Metoclopramide HCl (Reglan -) 10 mg PO BID [facility] Last Admin: 03/16/18 09:39 Dose: 10 mg Multivitamins/Minerals/Vitamin C (Tab-A-Vit -) 1 tab PO DAILY [facility] Last Admin: 03/16/18 09:39 Dose: 1 tab Pantoprazole Sodium (Protonix Iv) 40 mg IVPUSH DAILY [facility] Last Admin: 03/16/18 09:39 Dose: 40 mg Pramipexole Dihydrochloride (Mirapex -) 0.5 mg PO BID [facility] Last Admin: 03/16/18 10:25 Dose: 0.5 mg Tramadol HCl (Ultram -) 50 mg PO Q6H PRN PRN Reason: PAIN LEVEL 6-10 IMAGING: - CT Abdomen/Pelvis: Recurrent small bowel obstruction apparently secondary to a left periumbilical hernia. Development of nonspecific mild mesenteric soft tissue stranding is noted within the pelvis. Right sided parastomal hernia with an ileal conduit. No interval change is seen. Status post cystectomy. Status post hysterectomy. Sigmoid diverticulosis. There is partial imaging of at least moderate atherosclerotic coronary calcifications. - CXR (03/14 @ 06:17): NG tube tip in distal esophagus. Please advance. - CXR (03/14 @ 09:01): The tip of NG tube in distal thoracic esophagus. - CXR (03/14 @ 11:34): Imaging reveals a prominent mediastinum, degenerative changes, excessive soft tissues and an NG tube with its tip below the GE junction. Correlation recommended. - Abdomen XRay: The lung bases are clear. NG tube extending below the EG junction over the region of the stomach. No pneumoperitoneum is seen. No evidence of distended loops of small bowel, or colon. Nonspecific gas pattern of the loop of small bowel projecting over the left iliac wing. Oral contrast is seen in the nondilated ascending, transverse, proximal descending colon. Multiple surgical clips are noted in pelvis. IVC filter is noted. ASSESSMENT/PLAN: 77 y/o F with PMhx of HTN, DM, bladder CA s/p bladder resection and ileostomy conduit with nephrostomy (draining urine), multiple SBOs, parkinsons, PE was admitted for small bowel obstruction 1. Small Bowel Obstruction - Likely due to large ventral hernia - NG Tube D/c'ed (03/15) - Surgery (Dr. Greene) consulted, Appreciate rec's - Advanced to full liquid diabetic diet, she continued to have abdominal pain and diarrhea with lunch - D/c'ed 1/2 Normal Saline - D/c'ed Morphine 2 mg IVPUSH Q4H PRN - Started on Tramadol 50 mg PO Q6H PRN - Continue Metoclopramide HCl 10 mg PO BID - Will need to follow up with Dr. Greene outpatient after D/c 2. DM - BGM - ISS 3. Chronic Kidney Disease - Cr baseline 1.5, yesterday 1.2 - Continue to monitor 4. HTN - Restarted home dose Lisinopril 10 mg PO DAILY [facility] - Home dose diuretic held while on fluids 5. Parkinson's disease - Continue Pramipexole Dihydrochloride (Mirapex) 0.5 mg PO BID 6. FEN - PO Fluids - Lytes wnl, replete as needed - Full liquid diabetic diet, advance as tolerated 7. PPx - Continue Heparin 5,000 unit SQ TID Dispo: Likely tmrw once tolerating diet, will need to hold lasix, but she can use HCTZ/Lisinopril combo pill on d/c and f/u with pcp. Visit type - Emergency Visit Emergency Visit: Yes ED Registration Date: 03/14/18 Care time: The patient presented to the Emergency Department on the above date and was hospitalized for further evaluation of their emergent condition. - New Patient This patient is new to me today: No - Critical Care Critical Care patient: No
[2018-03-16 07:57] LABS: BASO % 0.5 % (0-2.0); EOS % 1.8 % (0-4.5); HEMATOCRIT 35.9 % (32.4-45.2); HEMOGLOBIN 11.8 GM/dL (10.7-15.3); LYMPH % 19.6 % (8-40); MCH 29.1 pg (25.7-33.7); MCHC 32.9 g/dl (32.0-36.0); MEAN CELL VOLUME 88.5 fl (80-96); MEAN PLT VOLUME 10.2 fl (7.5-11.1); MONO % 6.9 % (3.8-10.2); NEUT % 71.2 % (42.8-82.8); PLATELET COUNT 138 K/MM3 (134-434); RBC 4.06 M/mm3 (3.60-5.2); RDW 14.6 % (11.6-15.6); WHITE BLOOD COUNT 4.8 K/mm3 (4.0-10.0)
--- NOTE | 2018-03-16 08:23 | PN ---
Progress Note, Physician Chief Complaint: SBO History of Present Illness: 77 yo female with PMH HTN, DM, bladder CA s/p bladder resection and ileostomy conduit with nephrostomy (draining urine), multiple SBOs, parkinsons, PE presents for 2 day history of nausea, vomiting, abdominal pain. Stable overnight , having episodes of diarrhea. now on clear liquids. - Current Medication List Current Medications: Active Medications Ascorbic Acid (Vitamin C -) 500 mg PO BID [facility] Last Admin: 03/15/18 22:22 Dose: 500 mg Calcium Carbonate/Cholecalciferol (Os-Jay 500+D -) 500 tab PO BID [facility] Last Admin: 03/15/18 22:27 Dose: 1 tab Diphenhydramine HCl (Benadryl Injection -) 12.5 mg IVPUSH Q4H PRN PRN Reason: FOR ITCHING Last Admin: 03/15/18 22:22 Dose: 12.5 mg Furosemide (Lasix -) 40 mg PO DAILY [facility] Heparin Sodium (Porcine) (Heparin -) 5,000 unit SQ TID [facility] Last Admin: 03/16/18 06:29 Dose: Not Given Sodium Chloride (1/2 Normal Saline) 1,000 mls @ 50 mls/hr IV ASDIR [facility] Last Admin: 03/15/18 12:27 Dose: 50 mls/hr Insulin Aspart (Novolog Vial Sliding Scale -) 1 vial SQ ACHS [facility]; Protocol Last Admin: 03/16/18 06:29 Dose: Not Given Lactic Acid (Lac-Hydrin 12) 1 applic TP BID [facility] Last Admin: 03/15/18 22:39 Dose: 1 applic Latanoprost (Xalatan 0.005% Eye Drops -) 1 drop OU HS [facility] Last Admin: 03/15/18 22:22 Dose: 1 drop Lisinopril (Prinivil) 10 mg PO DAILY [facility] Metoclopramide HCl (Reglan -) 10 mg PO BID [facility] Last Admin: 03/15/18 22:22 Dose: 10 mg Morphine Sulfate (Morphine Sulfate) 2 mg IVPUSH Q4H PRN PRN Reason: PAIN LEVEL 7 - 10 Last Admin: 03/15/18 06:26 Dose: 2 mg Multivitamins/Minerals/Vitamin C (Tab-A-Vit -) 1 tab PO DAILY [facility] Pantoprazole Sodium (Protonix Iv) 40 mg IVPUSH DAILY [facility] Last Admin: 03/15/18 10:08 Dose: 40 mg Pramipexole Dihydrochloride (Mirapex -) 0.5 mg PO BID [facility] Last Admin: 03/15/18 22:22 Dose: 0.5 mg - Objective Vital Signs: Vital Signs Temperature 98.8 F 03/16/18 06:00 Pulse Rate 87 03/16/18 06:00 Respiratory Rate 20 03/16/18 06:00 Blood Pressure 123/62 03/16/18 06:00 O2 Sat by Pulse Oximetry (%) 98 03/15/18 21:00 Vital Signs Period Temp Pulse Resp BP Sys/Adorno Pulse Ox Last 24 Hr 97.8 F-99.7 F 51-98 18-20 110-154/58-90 98-98 Intake & Output 03/15/18 03/16/18 03/16/18 23:59 07:59 15:59 Intake Total 500 1100 Output Total 51 1400 Balance 449 -300 Intake: IV 500 600 1/2 Normal Saline 1,000 500 600 ml @ 50 mls/hr IV ASDIR [facility] Rx#:[id number] Oral 500 Output: Gastric Drainage 50 Urine 1 1400 Ileoconduit 1400 Void 1 Other: Voiding Method Ileal Conduit (Right) Bowel Movement Yes Yes # Bowel Movements 2 1 Constitutional: Yes: No Distress, Calm, Obese Eyes: Yes: Conjunctiva Clear, EOM Intact HENT: Yes: Atraumatic, Normocephalic Neck: Yes: Supple, Trachea Midline Cardiovascular: Yes: Regular Rate and Rhythm, S1, S2 Respiratory: Yes: Regular, CTA Bilaterally Gastrointestinal: Yes: Normal Bowel Sounds, Soft, Abdomen, Obese, Other ( ureterostomy fucntioning). No: Tenderness, Tenderness, Epigastrium, Tenderness , Rebound, Vomiting Genitourinary: No: CVA Tenderness - Left, CVA Tenderness - Right Musculoskeletal: No: Muscle Pain, Muscle Weakness Extremities: No: Cool, Cyanosis Edema: No Neurological: Yes: Alert, Oriented Psychiatric: Yes: Alert, Oriented Labs: CBC, BMP 03/16/18 06:18 INR, PTT INR 1.06 (0.82-1.09) 03/15/18 06:40 Problem List - Problems (1) Ventral incisional hernia without obstruction or gangrene Assessment/Plan: 77yo female MMP chronically incarcerated ventral incisional hernia, fully reducible adjacent to the functional ureterostomy. Resolving SBO now on diet and having some diarrhea. No need for surgical intervention. Advance diet as tolerated Trend labs and replete electrolytes Recall surgery as needed D/C planning Code(s): K43.2 - INCISIONAL HERNIA WITHOUT OBSTRUCTION OR GANGRENE (2) SBO (small bowel obstruction) Code(s): K56.609 - UNSP INTESTNL OBST, UNSP TO PARTIAL VERSUS COMPLETE OBST (3) Acute renal failure Code(s): N17.9 - ACUTE KIDNEY FAILURE, UNSPECIFIED Qualifiers: Acute renal failure type: unspecified Qualified Code(s): N17.9 - Acute kidney failure, unspecified (4) Bladder cancer Code(s): C67.9 - MALIGNANT NEOPLASM OF BLADDER, UNSPECIFIED (5) DM2 (diabetes mellitus, type 2) Code(s): E11.9 - TYPE 2 DIABETES MELLITUS WITHOUT COMPLICATIONS Qualifiers: Diabetes mellitus longterm insulin use: without exterminator helper termite use Diabetes mellitus complication status: without complication Qualified Code(s): E11.9 - Type 2 diabetes mellitus without complications (6) HTN (hypertension) Code(s): I10 - ESSENTIAL (PRIMARY) HYPERTENSION (7) Morbid obesity Code(s): E66.01 - MORBID (SEVERE) OBESITY DUE TO EXCESS CALORIES (8) Parkinson disease Code(s): G20 - PARKINSON'S DISEASE
[2018-03-16 09:10] LABS: BLOOD UREA NITROGEN 12 mg/dL (7-18); CHLORIDE 108 mmol/L (98-107); CREATININE 1.4 mg/dL (0.55-1.02); GLUCOSE,RANDOM 168 mg/dL (74-106); POTASSIUM 4.1 mmol/L (3.5-5.1); SODIUM 144 mmol/L (136-145)
[2018-03-16 09:11] LABS: ANION GAP 10 (8-16); CALCIUM 8.7 mg/dL (8.5-10.1); CO2 26 mmol/L (21-32); MAGNESIUM 1.7 mg/dL (1.8-2.4); PHOSPHOROUS 2.8 mg/dL (2.5-4.9)
[2018-03-16] MEDS: ASCORBIC ACID 500 MG TABLET (FP) PO SCH ×2 (09:39→21:42)
[2018-03-16] MEDS: PANTOPRAZOLE SODIUM 40 MG VIAL IVPUSH SCH (09:39)
[2018-03-16] MEDS: MULTIVITAMINS (DAILY MVI) TABLET (FP) PO SCH (09:39)
[2018-03-16] MEDS: METOCLOPRAMIDE HCL 10 MG TABLET (FP) PO SCH ×2 (09:39→21:41)
[2018-03-16] MEDS: SODIUM CHLORIDE 0.45% 1,000 ML IV SCH (09:40)
[2018-03-16] MEDS ORDERED: FUROSEMIDE 40 MG TABLET (FP) PO SCH (10:00)
[2018-03-16] MEDS: LISINOPRIL 10 MG TABLET (FP) PO SCH (10:25)
[2018-03-16] MEDS: AMMONIUM LACTATE 12% LOTION 225 GM BOTTLE TP SCH ×2 (10:25→21:48)
[2018-03-16] MEDS: PRAMIPEXOLE DIHYDROCHLORIDE 0.5 MG TABLET PO SCH ×2 (10:25→21:41)
[2018-03-16] MEDS: CALCIUM 500MG/VIT-D 200 UNITS COMBO TABLET (FP) PO SCH ×3 (12:19→21:42)
[2018-03-16] MEDS ORDERED: traMADol HCL 50 MG TABLET PO PRN (15:17)
--- NOTE | 2018-03-16 16:52 | PN ---
Teaching Attending Note Name of Resident: Heather Valencia ATTENDING PHYSICIAN STATEMENT I saw and evaluated the patient. I reviewed the resident's note and discussed the case with the resident. I agree with the resident's findings and plan as documented. SUBJECTIVE:c/o pain when eating liquids. had multiple loose BM overnight. denies CP, SOB, fever, chills, N/V OBJECTIVE: Last Vital Signs Temp Pulse Resp BP Pulse Ox 98.8 F 90 18 131/74 98 03/16/18 15:07 03/16/18 15:07 03/16/18 15:07 03/16/18 15:07 03/16/18 09:00 General NAD Abdomen soft ND/NT hypoactive BS. Extremities no pedal edema ASSESSMENT AND PLAN: 77 year old female with a hx of HTN, DM, bladder CA s/p bladder resection and ileostomy conduit with nephrostomy (draining urine), multiple SBOs, parkinsons, PE presents for 2 day history of nausea, vomiting, abdominal pain and found to have SBO 1. SBO- due to L periumbilical hernia.now resolved. some pain when drinking fluids. multiple BM overnight. will cont liquid diet at this time. surgery on board. pain and nausea control 2. Hyperkalemia- no peaked T waves on EKG. resolved 3. CKD- at baseline 4. HTN- elevated. will re-start lisinopril 5. DM- BGM and iss 6. bladder ca s/p resection with ileostomy and nephrostomy- good UOP at this time. 7. Parkinson 8. PE s/p IVC filter- no longer on anticoagulation due to subarachnoid bleed after mechanical fall. 9. DVT ppx- Hep sq 10. can d/c once tolerating diet
[2018-03-16] MEDS: LATANOPROST 0.005% OPHTH SOLN 2.5ML BOTTLE OU SCH (21:49)
[2018-03-17] MEDS: INSULIN SLIDING SCALE (NOVOLOG) 1 VIAL SQ SCH ×2 (06:18→12:44)
[2018-03-17] MEDS: HEPARIN NA (PORCINE) 5,000 UNITS/ML 1ML VIAL SQ SCH ×2 (06:18→14:13)
--- NOTE | 2018-03-17 08:37 | PN ---
Teaching Attending Note Name of Resident: Heather Valencia ATTENDING PHYSICIAN STATEMENT I saw and evaluated the patient. I reviewed the resident's note and discussed the case with the resident. I agree with the resident's findings and plan as documented. SUBJECTIVE:asymptomatic. tolerated regular diet last night without pain. BM are becoming more solid. no abdominal pain. OBJECTIVE: Last Vital Signs Temp Pulse Resp BP Pulse Ox 98 F 85 20 119/58 98 03/17/18 07:04 03/17/18 07:04 03/17/18 07:04 03/17/18 07:04 03/16/18 21:00 General NAD Abdomen soft ND/NT hypoactive BS. Extremities no pedal edema ASSESSMENT AND PLAN: 77 year old female with a hx of HTN, DM, bladder CA s/p bladder resection and ileostomy conduit with nephrostomy (draining urine), multiple SBOs, parkinsons, PE presents for 2 day history of nausea, vomiting, abdominal pain and found to have SBO 1. SBO- due to L periumbilical hernia.now resolved. tolerating diet. haveing BM. can f/u with surgeon for possible hernia repair to evalute if pt is a candidate. pain and nausea control 2. Hyperkalemia- no peaked T waves on EKG. resolved 3. CKD- at baseline 4. HTN- elevated. restarted home dose of antihypertensives 5. DM- requiring small amounts of coverage at this time. however not eating regular diet. encouraged to take half of insulin dosing for today and to monitor sugars closely. once sugars are persistently in 200's to resume home dosing of insulin. pt knows and recognizes signs and symptoms of hypoglycemia. 6. bladder ca s/p resection with ileostomy and nephrostomy- good UOP at this time. 7. Parkinson 8. PE s/p IVC filter- no longer on anticoagulation due to subarachnoid bleed after mechanical fall. 9. DVT ppx- Hep sq 10.d/c home
[2018-03-17] MEDS: CALCIUM 500MG/VIT-D 200 UNITS COMBO TABLET (FP) PO SCH (09:19)
[2018-03-17] MEDS: ASCORBIC ACID 500 MG TABLET (FP) PO SCH (09:19)
[2018-03-17] MEDS: MULTIVITAMINS (DAILY MVI) TABLET (FP) PO SCH (09:19)
[2018-03-17] MEDS: PANTOPRAZOLE SODIUM 40 MG VIAL IVPUSH SCH (09:20)
[2018-03-17] MEDS: PRAMIPEXOLE DIHYDROCHLORIDE 0.5 MG TABLET PO SCH ×2 (09:20→12:45)
[2018-03-17] MEDS: METOCLOPRAMIDE HCL 10 MG TABLET (FP) PO SCH (09:20)
[2018-03-17] MEDS: LISINOPRIL 10 MG TABLET (FP) PO SCH (09:20)
[2018-03-17] MEDS: AMMONIUM LACTATE 12% LOTION 225 GM BOTTLE TP SCH (09:21)
[2018-03-17] MEDS ORDERED: diphenhydrAMINE HCL 25 MG CAPSULE (FP) PO PRN (09:44)
[2018-03-17] MEDS ORDERED: HYDROCHLOROTHIAZIDE 12.5 MG CAPSULE (FP) PO SCH (10:00)
[2018-03-17 11:22] VITALS: BP 141/59; PULSE 77; TEMP 98.1
[2018-03-17] MEDS ORDERED: INSULIN (NOVOLOG) ASPART 100 UNITS/ML 10ML VIAL ONE (12:23)
== END 2018-03-17 15:03 | disposition home or self-care (01) | DRG 394 ==
LOC: JER 01:59 → JERBED 06:37 → J8W 08:27
PROVIDERS: ADMIT Internal Medicine; ATTEND Internal Medicine
DX: K43.0 Incisional hernia with obstruction, without gangrene (principal); Z68.43 Body mass index [BMI] 50.0-59.9, adult; G20 Parkinson's disease; E87.5 Hyperkalemia; I12.9 Hypertensive chronic kidney disease with stage 1 through stage 4 chronic kidney disease, or unspecified chronic kidney disease; E11.22 Type 2 diabetes mellitus with diabetic chronic kidney disease; N18.9 Chronic kidney disease, unspecified; E66.01 Morbid (severe) obesity due to excess calories; Z93.6 Other artificial openings of urinary tract status
CPT/HCPCS: 36415; 71045-TC-FY; 74019-TC-FY; 74176-TC; 80048; 80053; 81003; 81015; 82962; 83690; 83735; 84100; 84484; 85025; 85027; 85610; 86850; 86900; 86901; 93005; 93010; 97116-GP; 97161-GP; 99285-25; J0131; J1644; J7030

== ENCOUNTER 2018-09-13 01:47 | Inpatient (IN) | payer OTHER ==
[2018-09-13 02:35] VITALS: BMI 29.2
--- NOTE | 2018-09-13 03:55 | PDOC ---
Attending Attestation - Resident Resident Name: Perez Jones - ED Attending Attestation I have performed the following: I have examined & evaluated the patient, The case was reviewed & discussed with the resident, I agree w/resident's findings & plan
--- NOTE | 2018-09-13 03:56 | PDOC ---
*Physical Exam - Vital Signs Last Vital Signs Temp Pulse Resp BP Pulse Ox 96.8 F L 62 14 106/75 95 09/13/18 01:47 09/13/18 01:47 09/13/18 01:47 09/13/18 01:47 09/13/18 01:47 Medical Decision Making - Medical Decision Making 09/13/18 03:55 Patient seen by the advanced practice provider under my direct supervision. Ancillary testing reviewed as necessary. I agree with plan as outlined by the advanced practice provider. *DC/Admit/Observation/Transfer Diagnosis at time of Disposition: Abdominal pain Qualifiers: Abdominal location: generalized Qualified Code(s): R10.84 - Generalized abdominal pain - Discharge Dispostion Condition at time of disposition: Fair - Referrals - Patient Instructions - Post Discharge Activity
--- NOTE | 2018-09-13 04:10 | PDOC ---
History of Present Illness - General Chief Complaint: Diarrhea Stated Complaint: DIARRHEA Time Seen by Provider: 09/13/18 03:06 History Source: Patient, Family (Daughter), Old Records - History of Present Illness Initial Comments: 09/13/18 04:08 HISTORY OF PRESENT ILLNESS: This is a 77-year-old woman with past medical history of hypertension, IDDM, bladder cancer status post ileal conduit, multiple abdominal hernias, multiple SBO's, right knee surgery, subdural hematoma was brought to the emergency department by her daughter for evaluation of diarrhea for 3 days. Daughter states the patient is been fighting the family to avoid the emergency department. The family is been trying to orally hydrate using Gatorade but became concerned when the patient started to complain of right-sided abdominal pain. Family states patient has been more lethargic today. Family denies any blood in the stool and the patient has not vomited. No recent travel or sick contacts. PAST MEDICAL HISTORY: See HPI SURGICAL HISTORY: See HPI ALLERGIES: Latex REVIEW OF SYSTEMS General/Constitutional: Denies fever or chills. Denies weakness, weight change. HEENT: Denies change in vision. Denies ear pain or discharge. Denies sore throat. Cardiovascular: Denies chest pain or shortness of breath. Respiratory: Denies cough, wheezing, or hemoptysis. Gastrointestinal: Denies nausea, vomiting, or constipation. Denies rectal bleeding. (+)diarrhea. right sided abdominal pain. Genitourinary: Denies dysuria, frequency, or change in urination. Musculoskeletal: Denies joint or muscle swelling or pain. Denies neck or back pain. Skin and breasts: Denies rash or easy bruising. Neurologic: Denies headache, vertigo, loss of consciousness, or loss of sensation. Psychiatric: Denies depression or anxiety. Endocrine: Denies increased thirst. Denies abnormal weight change. Hematologic/Lymphatic: Denies anemia, easy bleeding. (+)history of blood clots. Allergic/Immunologic: Denies hives or skin allergy. PHYSICAL EXAM General Appearance: Well-appearing, appropriately dressed. No apparent distress , no intoxication. HEENT: EOMI, PERRLA, normal ENT inspection, normal voice, TMs normal, pharynx normal. No conjunctival pallor. No photophobia, scleral icterus. Neck: Supple. Trachea midline. No tenderness, rigidity, carotid bruit, stridor , lymphadenopathy, or thyromegaly. Respiratory/Chest: Lungs CTAB. No shortness of breath, chest tenderness, respiratory distress, accessory muscle use. No crackles, rales, rhonchi, stridor , wheezing, dullness Cardiovascular: RRR. S1, S2. No JVD, murmur, bradycardia, tachycardia. Vascular Pulses: Dorsalis-Pedis (R): 2+, Dorsalis-Pedis (L): 2+ Gastrointestinal/Abdominal: Normal bowel sounds. Obese abdomen soft, non- distended. RLQ tenderness with guarding. No rebound tenderness. No organomegaly , pulsatile mass, hernia, hepatomegaly, splenomegaly. Lymphatic: No adenopathy, tenderness. Musculoskeletal/Extremities: Normal inspection. FROM of all extremities, normal capillary refill. Pelvis Stable. No CVA tenderness. No tenderness to extremities, pedal edema, swelling, erythema or deformity. Integumentary: Appropriate color, dry, warm. No cyanosis, erythema, jaundice or rash Neurologic: agronomy advisor II-XII intact. Appropriate mood/affect. Motor strength 5/5. No appreciable EOM palsy, facial droop or sensory deficit. Past History - Past Medical History Allergies/Adverse Reactions: Allergies Allergy/AdvReac Type Severity Reaction Status Date / Time latex Allergy Verified 03/14/18 02:08 Home Medications: Ambulatory Orders Insulin NPL/Insulin Lispro [Humalog Mix 75-25 Pen] 30 unit SQ AM 05/04/13 Latanoprost 0.005% Eye Drops [Xalatan 0.005% Eye Drops -] 1 drop OU HS 06/25/14 Insulin Lispro Protamin/Lispro [Humalog Mix 75-25 Vial] 27 unit SQ HS 12/22/16 Furosemide [Lasix -] 40 mg PO DAILY 05/08/17 Lisinopril/Hydrochlorothiazide [Lisinopril-Hctz 10-12.5 mg Tab] 10 mg PO DAILY 05/08/17 Multivitamins [Multivit ([facility] Formulary)] 1 mg PO DAILY 05/08/17 Omeprazole 40 mg PO BID 05/08/17 Pregabalin [Lyrica -] 50 mg PO TID 05/08/17 Pramipexole Dihydrochloride [Mirapex -] 0.5 mg PO BID 03/14/18 Ammonium Lactate Cream [Lac-Hydrin 12% Cream -] 1 applic TP BID 03/15/18 Ascorbic Acid [Vitamin C] 500 mg BID 03/15/18 Calcium Carbonate/Vitamin D3 [Calcium 600 + Vit D 400 Softgl] 600 mg BID Metoclopramide HCl [Reglan] 10 mg PO BID 03/15/18 Ferrous Sulfate [Iron] 325 mg PO DAILY #0 tab 03/17/18 Anemia: No Asthma: No Cancer: Yes (BLADDER) Cardiac Disorders: No CVA: No COPD: No CHF: No Dementia: No Diabetes: Yes GI Disorders: Yes (GERD) Disorders: Yes (BLADDER CA) HTN: Yes Hypercholesterolemia: No Liver Disease: No Seizures: No Thyroid Disease: No - Surgical History Abdominal Surgery: Yes Appendectomy: No Cardiac Surgery: No Cholecystectomy: Yes Lung Surgery: No Neurologic Surgery: No Orthopedic Surgery: Yes (R KNEE REPLACEMENT) - Suicide/Smoking/Psychosocial Hx Smoking Status: No Smoking History: Never smoked Have you smoked in the past 12 months: No Number of Cigarettes Smoked Daily: 0 Information on smoking cessation initiated: No Hx Alcohol Use: No Drug/Substance Use Hx: No Substance Use Type: None Hx Substance Use Treatment: No *Physical Exam - Vital Signs Last Vital Signs Temp Pulse Resp BP Pulse Ox 96.8 F L 62 14 106/75 95 09/13/18 01:47 09/13/18 01:47 09/13/18 01:47 09/13/18 01:47 09/13/18 01:47 Moderate Sedation - Procedure Monitoring Vital Signs: Procedure Monitoring Vital Signs Temperature 96.8 F L 09/13/18 01:47 Pulse Rate 62 09/13/18 01:47 Respiratory Rate 14 09/13/18 01:47 Blood Pressure 106/75 09/13/18 01:47 O2 Sat by Pulse Oximetry (%) 95 09/13/18 01:47 ED Treatment Course - LABORATORY CBC & Chemistry Diagram: 09/13/18 05:35 09/13/18 04:08 Medical Decision Making - Medical Decision Making 09/13/18 04:24 A/P: 77-year-old female with multiple medical problems with 3 days of diarrhea and right lower quadrant pain Guarding to right lower quadrant with tenderness Negative psoas sign, no McBurney's tenderness, no Puga sign, Patient requires frequent arousals to participate in exam. Differential diagnosis includes but not limited to: Appendicitis, bowel obstruction, sepsis, colitis, mesenteric ischemia, bowel perforation, electrolyte imbalance Labs, urine, blood cultures, IV fluids, CAT scan of abdomen, pelvis and head 09/13/18 07:18 Pt signed out to EFREN Waite. *DC/Admit/Observation/Transfer Diagnosis at time of Disposition: Abdominal pain Qualifiers: Abdominal location: generalized Qualified Code(s): R10.84 - Generalized abdominal pain Acute renal failure Qualifiers: Acute renal failure type: unspecified Qualified Code(s): N17.9 - Acute kidney failure, unspecified - Discharge Dispostion Condition at time of disposition: Fair - Referrals - Patient Instructions - Post Discharge Activity
[2018-09-13] MEDS ORDERED: SODIUM CHLORIDE 1,000 ML IV STA (05:09)
[2018-09-13 06:13] LABS: BASO % 0.2 % (0-2.0); EOS % 0.1 % (0-4.5); HEMATOCRIT 37.3 % (32.4-45.2); HEMOGLOBIN 11.9 GM/dL (10.7-15.3); LYMPH % 11.4 % (8-40); MCH 28.8 pg (25.7-33.7); MEAN CELL VOLUME 90.1 fl (80-96); MEAN PLT VOLUME 10.6 fl (7.5-11.1); NEUT % 81.3 % (42.8-82.8); PLATELET COUNT 120 K/MM3 (134-434); RBC 4.13 M/mm3 (3.60-5.2); WHITE BLOOD COUNT 4.9 K/mm3 (4.0-10.0)
[2018-09-13 06:37] LABS: ALBUMIN 3.1 g/dl (3.4-5.0); ALK PHOS 165 U/L (45-117); ANION GAP 12 MMOL/L (8-16); BILIRUBIN,TOTAL 0.6 mg/dL (0.2-1); BLOOD UREA NITROGEN 38 mg/dL (7-18); CALCIUM 8.3 mg/dL (8.5-10.1); CHLORIDE 109 mmol/L (98-107); CO2 21 mmol/L (21-32); CREATININE 5.1 mg/dL (0.55-1.3); GLUCOSE,RANDOM 192 mg/dL (74-106); LIPASE 61 U/L (73-393); POTASSIUM 3.5 mmol/L (3.5-5.1); SGOT/AST 17 U/L (15-37); SGPT/ALT 20 U/L (13-61); SODIUM 141 mmol/L (136-145); TOT PROT 7.5 g/dl (6.4-8.2)
[2018-09-13] MEDS ORDERED: ONDANSETRON 4 MG/2 ML VIAL ONE (07:34)
[2018-09-13] MEDS ORDERED: ONDANSETRON 4 MG/2 ML VIAL IVPUSH ONE (07:44)
--- NOTE | 2018-09-13 07:47 | PDOC ---
*Physical Exam - Vital Signs Last Vital Signs Temp Pulse Resp BP Pulse Ox 96.8 F L 62 14 106/75 95 09/13/18 01:47 09/13/18 01:47 09/13/18 01:47 09/13/18 01:47 09/13/18 01:47 ED Treatment Course - LABORATORY CBC & Chemistry Diagram: 09/13/18 05:35 09/13/18 04:08 - ADDITIONAL ORDERS Additional order review: Laboratory Results 09/13/18 09/13/18 04:08 04:08 Sodium 141 Potassium 3.5 Chloride 109 H Carbon Dioxide 21 Anion Gap 12 BUN 38 H Creatinine 5.1 H Creat Clearance w eGFR 8.18 Random Glucose 192 H Lactic Acid 2.7 H* Calcium 8.3 L Total Bilirubin 0.6 AST 17 ALT 20 Alkaline Phosphatase 165 H Creatine Kinase 148 Troponin I 0.03 Total Protein 7.5 Albumin 3.1 L Lipase 61 L - Medications Given in the ED: ED Medications Discontinued Medications Generic Name Dose Route Start Last Admin Trade Name Freq PRN Reason Stop Dose Admin Sodium Chloride 1,000 mls @ 1,000 mls/hr 09/13/18 05:09 09/13/18 05:51 Normal Saline - IV 09/13/18 06:08 1,000 mls/hr ASDIR STA Administration Medical Decision Making - Medical Decision Making 09/13/18 07:35 Patient received in signout from EFREN Caldwell with complaints of diarrhea, weakness , and right lower quadrant pain for the past 3 days. Patient's creatinine level is 5.1. Patient has history of bladder cancer and is followed by Dr. deanne pickering. Patient is pending abdominal CT with by mouth contrast. Patient given Zofran secondary to vomiting we have liquids upon my arrival. Patient will begin contrast shortly by mouth patient receiving gentle IV fluids 09/13/18 11:38 Secondary to patient's complaint of diarrhea, Lower abdominal pain, and elevated lactic acid, patient will be ordered for Levaquin and Flagyl along with C. difficile and second lactic acid. Patient pending abdominal CT. 09/13/18 13:[address] Case discussed with hospitalist and will admit to [facility] inpatient. chest x-ray results pending. Second lactic pending 09/13/18 13:10 09/13/18 14:[address] shows no evidence of bowel obstruction or diverticulitis or free air/fluid. C. difficile negative *DC/Admit/Observation/Transfer Diagnosis at time of Disposition: Diarrhea, Elevated lactic acid level Abdominal pain Qualifiers: Abdominal location: generalized Qualified Code(s): R10.84 - Generalized abdominal pain Acute renal failure Qualifiers: Acute renal failure type: unspecified Qualified Code(s): N17.9 - Acute kidney failure, unspecified - Discharge Dispostion Decision to Admit order: Yes - Referrals - Patient Instructions - Post Discharge Activity
--- NOTE | 2018-09-13 12:21 | EKG ---
Test Reason : Blood Pressure : / mmHG Vent. Rate : 072 BPM Atrial Rate : 072 BPM P-R Int : 150 ms QRS Dur : 140 ms QT Int : 436 ms P-R-T Axes : 060 -13 057 degrees QTc Int : 477 ms SINUS RHYTHM WITH FREQUENT PREMATURE VENTRICULAR COMPLEXES RIGHT BUNDLE BRANCH BLOCK ABNORMAL ECG WHEN COMPARED WITH ECG OF 14-MAR-2018 02:01, PREMATURE VENTRICULAR COMPLEXES ARE NOW PRESENT QRS DURATION HAS INCREASED T WAVE INVERSION NOW EVIDENT IN ANTERIOR LEADS Confirmed by JAYDA VAQZUEZ MD ([id number]) on 09/13/2018 12:21:14 PM Referred By: Confirmed By:JAYDA VAZQUEZ MD
[2018-09-13] MEDS ORDERED: SODIUM CHLORIDE 250 ML IV STA (14:28)
[2018-09-13] MEDS ORDERED: ACETAMINOPHEN 1000 MG/100 ML VIAL (NON FORMULARY) IVPB PRN (14:43)
[2018-09-13] MEDS ORDERED: SODIUM CHLORIDE 500 ML IV ONE ×2 (15:31)
--- NOTE | 2018-09-13 15:43 | CONSULT ---
Consult - text type - Consultation Consultation Note: Renal Consult for NATASHA This is a 77 year old woman with hx of bladder cancer s/p resection with ileual conduit, hypertension, hx of SBO, IDDM who presented from home with complaints of diarrhea and weakness and found to have NATASHA. Pt reports diarrhea x 3 days, watery, frequently throughout the day. No fever but felt warm as per family. Has decreased urine output and urine has been cloudy. Pt also complains of right flank pain which is chronic. No N/V, no CP, SOB. No leg swelling. No NSAID use. PMHx: as above Allergies: NKDA Family Hx: NC Social Hx: No T/A/D ROS: as per HPI, all other pertinent ros negative Home Medications Medication Instructions Recorded Insulin NPL/Insulin Lispro 30 unit SQ AM 05/04/13 [Humalog Mix 75-25 Pen] Insulin Lispro Protamin/Lispro 27 unit SQ HS 12/22/16 [Humalog Mix 75-25 Vial] Furosemide [Lasix -] 40 mg PO DAILY 05/08/17 Lisinopril/Hydrochlorothiazide 10 mg PO DAILY 05/08/17 [Lisinopril-Hctz 10-12.5 mg Tab] Multivitamins [Multivit ([facility] 1 mg PO DAILY 05/08/17 Formulary)] Omeprazole 40 mg PO BID 05/08/17 Pregabalin [Lyrica -] 50 mg PO TID 05/08/17 Pramipexole Dihydrochloride 0.5 mg PO BID 03/14/18 [Mirapex -] Ascorbic Acid [Vitamin C] 500 mg BID 03/15/18 Calcium Carbonate/Vitamin D3 600 mg BID 03/15/18 [Calcium 600 + Vit D 400 Softgl] Carbidopa/Levodopa 0.5 each PO TID 09/13/18 [Carbidopa-Levodopa 25-100 Tab] Diclofenac Sodium [Voltaren] 4 gm TP BID PRN 09/13/18 Vital Signs Temperature 100.4 F H 09/13/18 14:41 Pulse Rate 89 09/13/18 14:41 Respiratory Rate 18 09/13/18 14:41 Blood Pressure 80/46 L 09/13/18 15:00 O2 Sat by Pulse Oximetry (%) 96 09/13/18 14:41 Intake & Output 01/2109/11/18 09/12/18 09/13/18 23:59 23:59 23:59 23:59 Weight 72.575 kg NAD lethargic NC/AT, Dry MM, No JVD RRR, No M/R Dec Bs, no rales soft, NT/ND Ileual conduit with yellow urine no Le edema CBC, BMP 09/13/18 05:35 09/13/18 04:08 Current Medications Acetaminophen (Ofirmev Injection -) 1,000 mg IVPB Q6H PRN PRN Reason: PAIN OR FEVER Heparin Sodium (Porcine) (Heparin -) 5,000 unit SQ TID GLORIA Sodium Chloride (Normal Saline -) 500 mls @ 100 mls/hr IV ASDIR ONE Stop: 09/13/18 20:30 77 year old woman with hx of bladder cancer s/p resection with ileual conduit, hypertension, hx of SBO, IDDM who presented from home with complaints of diarrhea and weakness and found to have NATASHA. #NATASHA on CKD in setting of volume depletion +/- renal hypoprofusion from ERENDIRA + Diuretics #CKD #Bladder Ca with ileual conduit #Diarrhea #r/o pylonephritis Baseline Cr ~1.5 No indication for SERVICE CAR DRIVER or bicarb at this time CT showed fullness of right renal pelvis however no hydronephrosis seen Would continue aggressive IVF Hydration with NS at 84 to 100cc per hour keep MAP > 65 f/u blood and urine cultures If renal function does not improve with hydration consider urology consult with Dr. Gomez (outpatient urologist) Thank you Stevan Maya DO
[2018-09-13 15:44] LABS: URINE APPEARANCE TURBID; URINE BILIRUBIN NEGATIVE (<2.0 mg/dL); URINE GLUCOSE (UA) NEGATIVE (NEGATIVE); URINE KETONE TRACE (NEGATIVE); URINE LEUK ESTERASE 1+ (NEGATIVE); URINE NITRITE NEGATIVE (NEGATIVE); URINE PROTEIN 2+ (NEGATIVE)
[2018-09-13 15:48] LABS: URINE COLOR YELLOW
[2018-09-13 16:31] LABS: URINE BACTERIA MANY /hpf (NONE SEEN); URINE HYALINE CAST 16 /lpf; URINE MUCUS RARE
--- NOTE | 2018-09-13 16:33 | HP ---
CHIEF COMPLAINT: lethargy, diarrhea x4 days PCP: BECKY marina Uro: Dr. Catalina oGmez HISTORY OF PRESENT ILLNESS: 77F w/ pmhx of HTN, DM, Bladder cx s/p post ileal conduit, multiple SBOs, SAH, Parkinson's CKD, DVT s/p IVC filter presented to the hospital for complaints of lethargy and 4 day history of diarrhea. Pt is present with daughter, Christiane ( contact #: [phone]) and reports she noticed the pt started to get lethargic yesterday while sitting down in her chair feeding her applesauce. Per daughter, pt started to slump down in her chair and was "in and out of it." Admits to subjective fevers, nausea, and 1 episode of vomiting after drinking PO contrast for CTAP. Pt also admits to headaches and dizziness. Denies blood in urine and stool. ER course was notable for: (1) Lac 2.7, BG 192, BUN/Cr 38/5.1, T 100.4, EKG showed RBBB, QTc 477, C.diff neg (2) Flagyl 500, Levaquin 750, Zofran 4, 2L NS given (3) Head CT neg, CTAP neg for SBO, +diverticulosis w/o diverticulitis, mild fullness of collecting system Recent Travel: Denies PAST MEDICAL HISTORY: As per HPI PAST SURGICAL HISTORY: R knee surgery x3 cholecystectomy bladder resection s/p post-ileal conduit IVC filter placement Social History: Smoking: Denies Alcohol: Denies Drugs: Denies Family History: Denies Allergies latex Allergy (Verified 03/14/18 02:08) HOME MEDICATIONS: Home Medications Medication Instructions Recorded Insulin NPL/Insulin Lispro 30 unit SQ AM 05/04/13 [Humalog Mix 75-25 Pen] Insulin Lispro Protamin/Lispro 27 unit SQ HS 12/22/16 [Humalog Mix 75-25 Vial] Furosemide [Lasix -] 40 mg PO DAILY 05/08/17 Lisinopril/Hydrochlorothiazide 10 mg PO DAILY 05/08/17 [Lisinopril-Hctz 10-12.5 mg Tab] Multivitamins [Multivit ([facility] 1 mg PO DAILY 05/08/17 Formulary)] Omeprazole 40 mg PO BID 05/08/17 Pregabalin [Lyrica -] 50 mg PO TID 05/08/17 Pramipexole Dihydrochloride 0.5 mg PO BID 03/14/18 [Mirapex -] Calcium Carbonate/Vitamin D3 600 mg PO TID 03/15/18 [Calcium 600 + Vit D 400 Softgl] Carbidopa/Levodopa 0.5 each PO TID 09/13/18 [Carbidopa-Levodopa 25-100 Tab] Diclofenac Sodium [Voltaren] 4 gm TP BID PRN 09/13/18 REVIEW OF SYSTEMS CONSTITUTIONAL: +f/c, +generalized weakness HEENT: -throat pain, -throat swelling, -difficulty swallowing, -visual changes CARDIOVASCULAR: +reproducible chest pain, -palpitations, +lightheadedness, + peripheral edema RESPIRATORY: -cough, -sob, -vasquez GASTROINTESTINAL: +R-sided abd pain, +nausea, +vomiting, +diarrhea, -melena, - hematochezia GENITOURINARY: +ileal conduit, -hematuria, -flank pain MUSCULOSKELETAL: +pain in R leg ENDOCRINE: -weight changes NEUROLOGIC: +headache, +dizziness, -mental status changes PHYSICAL EXAMINATION Vital Signs - 24 hr 09/13/18 09/13/18 09/13/18 01:47 08:00 14:41 Temperature 96.8 F L 100.4 F H Pulse Rate 62 Pulse Rate [ 89 Right Radial] Respiratory 14 18 Rate Blood Pressure 106/75 Blood Pressure [Left Arm] O2 Sat by Pulse 95 97 96 Oximetry (%) 09/13/18 09/13/18 15:00 15:57 Temperature Pulse Rate Pulse Rate [ Right Radial] Respiratory Rate Blood Pressure Blood Pressure 80/46 L 91/47 L [Left Arm] O2 Sat by Pulse Oximetry (%) GENERAL: AAOx3. NAD. Resting comfortably in bed. HEENT: AT/NC. EOMI. Dry mucus membranes. NORMA. NECK: Supple. Normal ROM. LUNGS: CTA B/L. No wheezes/crackles noted. HEART: Decreased heart sounds due to body habitus. RRR. Normal S1, S2. No murmurs noted. ABDOMEN: Soft, NT/ND. Ileostomy bag in place draining cloudy yellow urine. +RUQ abd TTP. MUSCULOSKELETAL: Normal range of motion at all joints. No bony deformities or tenderness. No CVA tenderness. EXTREMITIES: 2+ dorsalis pedis pulses b/l. No peripheral edema. NEUROLOGICAL: Normal speech, facial symmetry noted. Cranial nerves II-XII intact. Normal speech. 5/5 muscle strength in upper b/l extremities. 4/5 muscle strength LLE. 3/5 muscle strength due to pain. B/l sensation intact. SKIN: Warm, dry, normal turgor, no rashes or lesions noted, normal capillary refill. Laboratory Results - last 24 hr 09/13/18 09/13/18 09/13/18 04:08 04:08 05:35 WBC 4.9 RBC 4.13 Hgb 11.9 Hct 37.3 MCV 90.1 MCH 28.8 MCHC 32.0 RDW 16.0 H Plt Count 120 L MPV 10.6 Absolute Neuts (auto) 4.0 Neutrophils % 81.3 Lymphocytes % 11.4 D Monocytes % 7.0 Eosinophils % 0.1 D Basophils % 0.2 Nucleated RBC % 0 Sodium 141 Potassium 3.5 Chloride 109 H Carbon Dioxide 21 Anion Gap 12 BUN 38 H Creatinine 5.1 H Creat Clearance w eGFR 8.18 Random Glucose 192 H Lactic Acid 2.7 H* Calcium 8.3 L Total Bilirubin 0.6 AST 17 ALT 20 Alkaline Phosphatase 165 H Creatine Kinase 148 Troponin I 0.03 Total Protein 7.5 Albumin 3.1 L Lipase 61 L Urine Color Urine Appearance Urine pH Ur Specific [place] Urine Protein Urine Glucose (UA) Urine Ketones Urine Blood Urine Nitrite Urine Bilirubin Urine Urobilinogen Ur Leukocyte Esterase Urine WBC (Auto) Urine RBC (Auto) Urine Bacteria Hyaline Casts Urine Mucus Blood Type Antibody Screen 09/13/18 09/13/18 05:35 15:05 WBC RBC Hgb Hct MCV MCH MCHC RDW Plt Count MPV Absolute Neuts (auto) Neutrophils % Lymphocytes % Monocytes % Eosinophils % Basophils % Nucleated RBC % Sodium Potassium Chloride Carbon Dioxide Anion Gap BUN Creatinine Creat Clearance w eGFR Random Glucose Lactic Acid Calcium Total Bilirubin AST ALT Alkaline Phosphatase Creatine Kinase Troponin I Total Protein Albumin Lipase Urine Color Yellow Urine Appearance Turbid Urine pH 7.0 Ur Specific [place] 1.015 Urine Protein 2+ H Urine Glucose (UA) Negative Urine Ketones Trace H Urine Blood Negative Urine Nitrite Negative Urine Bilirubin Negative Urine Urobilinogen 2.0 H Ur Leukocyte Esterase 1+ H Urine WBC (Auto) 38 Urine RBC (Auto) 20 Urine Bacteria Many Hyaline Casts 16 Urine Mucus Rare Blood Type O POSITIVE Antibody Screen Negative IMAGING: * CTAP: ASSESSMENT/PLAN: 77F w/ pmhx of HTN, DM, Bladder cx s/p post ileal conduit, multiple SBOs, SAH, Parkinson's CKD, DVT s/p IVC filter presented to the hospital for complaints of lethargy and 4 day history of diarrhea #NATASHA on CKD -BUN/Cr 38/5.1 #SIRS; ? etiology, ddx includes viral gastroenteritis vs. UTI -r/o sepsis -C.diff neg, Stool cx/ BCx/ UCx pending -Due to pyuria, will give Ceftriaxone 1gm IVPB daily #Diarrhea; likely 2/2 viral gastroenteritis, r/o bacterial -check stool studies/C.diff -BCx/UCx ordered #Elevated lactate; 2.7, now 2.1 -cont IVf -repeat lactate #HTN; currently hypotensive -hold all home meds #DM; BS 192 -BGM/ISS ACHS -hold home DM meds #Chronic LE edema -Uses Lasix PRN at home; hold for now as pt is volume-depleted #Parkinson's -Cont home meds: Carbidopa/Levodopa 0.5 TID, Mirapex 0.5 mg PO BID #Prophylaxis -SQH -Protonix 40 mg PO BID #FEN -NS @ 100 -recheck lytes in AM- -diabetic/sodium-controlled diet dispo -full code -admit to med-surg Visit type - Emergency Visit Emergency Visit: Yes ED Registration Date: 09/13/18 Care time: The patient presented to the Emergency Department on the above date and was hospitalized for further evaluation of their emergent condition. - New Patient This patient is new to me today: Yes Date on this admission: 09/14/18 - Critical Care Critical Care patient: No
--- NOTE | 2018-09-13 16:50 | PN ---
Teaching Attending Note Name of Resident: Annetta Call ATTENDING PHYSICIAN STATEMENT I saw and evaluated the patient. I reviewed the resident's note and discussed the case with the resident. I agree with the resident's findings and plan as documented. SUBJECTIVE: CC: Lethargy and diarrhea HPI : 77 y/o lady with h/o HTN, DM, Bladder cancer s/p ileal conduit, SBO, abd wall hernias, SAH, CKD, IVC filter who presented with lethargy and diarrhea. fro the past 3 days , patient had watery non bloody diarrhea, and today she was noted by the daughter to be lethargic. OBJECTIVE: CT reviewed. , EKG ( sinus , bifascicular block , and L axis deviation, QTC 477 ) . ASSESSMENT AND PLAN: 77 y/o lady with h/o HTN, DM, Bladder cancer s/p ileal conduit, SBO, abd wall hernias, SAH, CKD ( Cr base line 1.5 ) , IVC filter who presented with lethargy and diarrhea.She was found to have NATASHA. 1- NATASHA : due to volume depletion in the setting of diarrhea and poor po intake while on ACEI and HCTZ no obstruction on CT scan , but some fullness in collecting system. - bolus 250 cc now as sBP 80 - start NS at 100 cc /hr - hold lisinopril and HCTXZ and home lasix - appreciate renal help 2- SIRS: need to r/o sepsis. source could be gastroenteritis vs UTI . no signs of PNA . UA with pyuria but she has a collecting bag. - follow blood cx - c diff neg - stool cx - given pyuria , will use ceftriaxone . avoid levaquin due to prolonged QTC - send urine cx 3- Diarrhea. likely viral enteritis. can't r/o bacterial. c diff neg - check stool stuuuudies and cx - check flu swab - CT abd reviewed, with no obstruction and no thickening - IVF 4- Elevated lactic , could be due to volume depletionand hypotension. improved. cont IVF 5- h/o HTN: holdall HTN meds given hypotension and NATASHA 6- documented h/o heart failure. volume depletion now. uses PRN lasix at home. hold Dispo HLOC DVT px : heparin
[2018-09-13] MEDS ORDERED: MULTIVITAMINS (DAILY MVI) TABLET (FP) PO SCH (17:30)
[2018-09-13] MEDS ORDERED: SODIUM CHLORIDE 500 ML IV STA (17:55)
[2018-09-13] MEDS ORDERED: HEPARIN NA (PORCINE) 5,000 UNITS/ML 1ML VIAL SQ SCH (22:00)
[2018-09-13] MEDS ORDERED: PANTOPRAZOLE 40 MG TABLET (FP) PO SCH (22:00)
[2018-09-13] MEDS ORDERED: PREGABALIN 50 MG CAPSULE PO SCH (22:00)
[2018-09-13] MEDS ORDERED: PRAMIPEXOLE DIHYDROCHLORIDE 0.5 MG TABLET PO SCH (22:00)
[2018-09-13] MEDS ORDERED: CALCIUM 500MG/VIT-D 200 UNITS COMBO TABLET (FP) PO SCH (22:00)
[2018-09-13] MEDS ORDERED: CARBIDOPA/LEVODOPA 25/100 TABLET (FP) PO SCH (22:00)
[2018-09-13] MEDS ORDERED: PT OWN MED DRAWER 7, Y5N ONE (22:25)
[2018-09-13] MEDS ORDERED: SODIUM CHLORIDE 1,000 ML IV SCH (23:45)
[2018-09-14] MEDS ORDERED: SODIUM CHLORIDE 500 ML IV STA (00:18)
[2018-09-14 01:01] LABS: HEMATOCRIT 29.6 % (32.4-45.2); MCH 30.4 pg (25.7-33.7); MCHC 33.7 g/dl (32.0-36.0); MEAN CELL VOLUME 90.2 fl (80-96); MEAN PLT VOLUME 10.5 fl (7.5-11.1); PLATELET COUNT 92 K/MM3 (134-434); RBC 3.28 M/mm3 (3.60-5.2); RDW 15.5 % (11.6-15.6); WHITE BLOOD COUNT 4.8 K/mm3 (4.0-10.0)
[2018-09-14 01:23] LABS: ANION GAP 9 MMOL/L (8-16); BLOOD UREA NITROGEN 43 mg/dL (7-18); CALCIUM 7.2 mg/dL (8.5-10.1); CHLORIDE 115 mmol/L (98-107); CO2 19 mmol/L (21-32); CREATININE 5.9 mg/dL (0.55-1.3); GLUCOSE,RANDOM 164 mg/dL (74-106); POTASSIUM 3.1 mmol/L (3.5-5.1); SODIUM 142 mmol/L (136-145)
[2018-09-14] MEDS ORDERED: ACETAMINOPHEN 1000 MG/100 ML VIAL (NON FORMULARY) IVPB PRN (02:18)
[2018-09-14 06:11] LABS: BASO % 0.3 % (0-2.0); EOS % 0.6 % (0-4.5); HEMATOCRIT 29.2 % (32.4-45.2); HEMOGLOBIN 9.6 GM/dL (10.7-15.3); LYMPH % 14.8 % (8-40); MCH 29.4 pg (25.7-33.7); MCHC 32.9 g/dl (32.0-36.0); MEAN CELL VOLUME 89.4 fl (80-96); MEAN PLT VOLUME 10.4 fl (7.5-11.1); MONO % 12.1 % (3.8-10.2); NEUT % 72.2 % (42.8-82.8); PLATELET COUNT 90 K/MM3 (134-434); RBC 3.27 M/mm3 (3.60-5.2); RDW 15.9 % (11.6-15.6)
--- NOTE | 2018-09-14 06:26 | RAPID ---
Physical Examination Vital Signs: Vital Signs Temperature 98.3 F 09/14/18 05:37 Pulse Rate 62 09/14/18 05:37 Respiratory Rate 20 09/14/18 05:37 Blood Pressure 87/41 L 09/14/18 05:37 O2 Sat by Pulse Oximetry (%) 96 09/13/18 23:00 Labs: CBC, BMP 09/14/18 05:55 Rapid Response - Rapid Response Assessment: rapid response was called at 6:05 patient was not responding to sternal rub. patients pressures had been low throughout the whole night requiring multiple fluid boluses. vitals: Hr 67 BP 112/52 RR 14 spo2 87 percent room air BGM 135 patient responded to sternal rub gen: lethargic cardio: normal s1 s2 lungs: CTA B/L plan: send off ABG; non-contrast Head CT
[2018-09-14 06:29] LABS: ARTERIAL BLD GAS O2 SATURATION 96.1 % (90-98.9); ARTERIAL BLOOD GAS PCO2 40.3 mmHg (35-45)
[2018-09-14 06:33] LABS: ALLENS TEST POSITIVE; ARTERIAL BLOOD GAS BASE EXCESS -10.3 meq/l (-2-2); ARTERIAL BLOOD GAS pH 7.23 (7.35-7.45)
[2018-09-14] MEDS: PREGABALIN 50 MG CAPSULE PO SCH ×3 (06:47→21:14)
[2018-09-14] MEDS: CARBIDOPA/LEVODOPA 25/100 TABLET (FP) PO SCH ×3 (06:47→21:14)
[2018-09-14] MEDS: CALCIUM 500MG/VIT-D 200 UNITS COMBO TABLET (FP) PO SCH ×3 (06:47→21:15)
[2018-09-14] MEDS: HEPARIN NA (PORCINE) 5,000 UNITS/ML 1ML VIAL SQ SCH ×3 (06:47→21:15)
[2018-09-14] MEDS: INSULIN SLIDING SCALE (NOVOLOG) 1 VIAL SQ SCH ×4 (06:48→21:15)
[2018-09-14 07:17] LABS: ALBUMIN 2.2 g/dl (3.4-5.0); ALK PHOS 118 U/L (45-117); ANION GAP 9 MMOL/L (8-16); BILIRUBIN,TOTAL 0.3 mg/dL (0.2-1); BLOOD UREA NITROGEN 46 mg/dL (7-18); CHLORIDE 117 mmol/L (98-107); CO2 17 mmol/L (21-32); CREATININE 6.4 mg/dL (0.55-1.3); GLUCOSE,RANDOM 130 mg/dL (74-106); MAGNESIUM 1.7 mg/dL (1.8-2.4); PHOSPHOROUS 5.8 mg/dL (2.5-4.9); SGOT/AST 17 U/L (15-37); SGPT/ALT 6 U/L (13-61); SODIUM 143 mmol/L (136-145); TOT PROT 5.4 g/dl (6.4-8.2)
[2018-09-14] MEDS ORDERED: cefTRIAXone SODIUM 1 GM VIAL ONE (09:48)
[2018-09-14] MEDS ORDERED: DEXTROSE 5%-WATER - 50 ML IVPB ONE (09:48)
[2018-09-14] MEDS ORDERED: CEFTRIAXONE 1 GM in DEXTROSE 5%-WATER - 50 ML IVPB SCH (10:00)
[2018-09-14] MEDS: PRAMIPEXOLE DIHYDROCHLORIDE 0.5 MG TABLET PO SCH ×2 (10:16→21:14)
[2018-09-14] MEDS: KCL 10 MEQ IVPB 10 MEQ/100 ML INFUS.BAG IVPB SCH ×3 (10:16→13:48)
[2018-09-14] MEDS: MULTIVITAMINS (DAILY MVI) TABLET (FP) PO SCH (10:16)
[2018-09-14] MEDS: PANTOPRAZOLE 40 MG TABLET (FP) PO SCH ×2 (10:16→21:14)
--- NOTE | 2018-09-14 12:12 | PN ---
Progress Note (short form) - Note Progress Note: Renal follow up for NATASHA Pt seen and examined at the bedside reports feeling a little better but continues to have diarrhea overnight BP was low, requiring multiple fluid bolus making urine but overall output is low Vital Signs Temperature 98.2 F 09/14/18 10:00 Pulse Rate 71 09/14/18 10:00 Respiratory Rate 20 09/14/18 10:00 Blood Pressure 103/46 L 09/14/18 10:00 O2 Sat by Pulse Oximetry (%) 96 09/14/18 10:00 Intake & Output 09/11/18 09/12/18 09/13/18 09/14/18 23:59 23:59 23:59 23:59 Intake Total 600 Output Total 250 Balance 350 Weight 72.575 kg NAD awake and alert RRR CTA No LE edema CBC, BMP 09/14/18 05:55 09/14/18 05:55 Current Medications Acetaminophen (Ofirmev Injection -) 1,000 mg IVPB Q6H PRN PRN Reason: PAIN OR FEVER Calcium Carbonate/Cholecalciferol (Os-Jay 500+D -) 1 tab PO TID [facility] Last Admin: 09/14/18 06:47 Dose: 1 tab Carbidopa/Levodopa (Sinemet -) 0.5 each PO TID [facility] Last Admin: 09/14/18 06:47 Dose: 0.5 each Heparin Sodium (Porcine) (Heparin -) 5,000 unit SQ TID GLORIA Last Admin: 09/14/18 06:47 Dose: 5,000 unit Potassium Chloride (Potassium Chloride 10 Meq Premix Ivpb -) 10 meq in 100 mls @ 100 mls/hr IVPB Q60M [facility] Stop: 09/14/18 12:59 Last Admin: 09/14/18 10:16 Dose: 100 mls/hr Ceftriaxone Sodium 2 gm/ (Dextrose) 50 mls @ 100 mls/hr IVPB DAILY [facility] Sodium Bicarbonate 75 meq/ (Sodium Chloride) 1,075 mls @ 100 mls/hr IV Q10H [facility] Insulin Aspart (Novolog Vial Sliding Scale -) 1 vial SQ ACHS [facility]; Protocol Last Admin: 09/14/18 06:48 Dose: Not Given Multivitamins/Minerals/Vitamin C (Tab-A-Vit -) 1 tab PO DAILY [facility] Last Admin: 09/14/18 10:16 Dose: 1 tab Pantoprazole Sodium (Protonix -) 40 mg PO BID [facility] Last Admin: 09/14/18 10:16 Dose: 40 mg Pramipexole Dihydrochloride (Mirapex -) 0.5 mg PO BID [facility] Last Admin: 09/14/18 10:16 Dose: 0.5 mg Pregabalin (Lyrica -) 50 mg PO TID [facility] Last Admin: 09/14/18 06:47 Dose: Not Given 77 year old woman with hx of bladder cancer s/p resection with ileual conduit, hypertension, hx of SBO, IDDM who presented from home with complaints of diarrhea and weakness and found to have NATASHA. #NATASHA on CKD in setting of volume depletion +/- renal hypoprofusion from ERENDIRA + Diuretics #Non-anion gap metabolic acidosis #Hypokalemia #CKD #Bladder Ca with ileual conduit #Diarrhea #r/o pylonephritis Baseline Cr ~1.5 FeUrea is 25% indicating preserved tubular function No indication for [employer] or bicarb at this time will need continued IVF hydration will start 1/2 NS with 1.5 amps of bicarb for management of non-anion gap acidosis CT showed fullness of right renal pelvis however no hydronephrosis seen keep MAP > 65 supplement K to > 3.5 Repeat BMP this evening Thank you Stevan Maya DO
--- NOTE | 2018-09-14 12:13 | CON.ID ---
Consult Consult Specialty:: infectious diseases Referred by:: Reason for Consultation:: uti,sepsis,bacteremia - History of Present Illness Chief Complaint: weakness lethargy History of Present Illness: 77F w/ pmhx of HTN, DM, Bladder cx s/p post ileal conduit, multiple SBOs, SAH, Parkinson's CKD, DVT was brought to the hospital by her daughter because of weakness and lethargy.It seems patient did not want to come to the hospital as per the notes patient has been having lethargy since last 4 days and now started with dirrhoea Admits to subjective fevers, nausea, currently patient is tired she was worked up and found to ahve uti and bacteremia urology on case - History Source History Provided By: Patient, Medical Record Limitations to Obtaining History: Clinical Condition - Past Medical History Cardio/Vascular: Yes: AFIB, HTN Gastrointestinal: Yes: GERD Musculoskeletal: Yes: Osteoarthritis - Past Surgical History Past Surgical History: Yes: Joint Replacement (R knee) - Alcohol/Substance Use Hx Alcohol Use: No - Smoking History Smoking history: Never smoked Have you smoked in the past 12 months: No Aproximately how many cigarettes per day: 0 Home Medications - Allergies Allergies/Adverse Reactions: Allergies Allergy/AdvReac Type Severity Reaction Status Date / Time latex Allergy Verified 03/14/18 02:08 - Home Medications Home Medications: Ambulatory Orders Insulin NPL/Insulin Lispro [Humalog Mix 75-25 Pen] 30 unit SQ AM 05/04/13 Insulin Lispro Protamin/Lispro [Humalog Mix 75-25 Vial] 27 unit SQ HS 12/22/16 Furosemide [Lasix -] 40 mg PO DAILY 05/08/17 Lisinopril/Hydrochlorothiazide [Lisinopril-Hctz 10-12.5 mg Tab] 10 mg PO DAILY 05/08/17 Multivitamins [Multivit ([facility] Formul[facility])] 1 mg PO DAILY 05/08/17 Omeprazole 40 mg PO BID 05/08/17 Pregabalin [Lyrica -] 50 mg PO TID 05/08/17 Pramipexole Dihydrochloride [Mirapex -] 0.5 mg PO BID 03/14/18 Calcium Carbonate/Vitamin D3 [Calcium 600 + Vit D 400 Softgl] 600 mg PO TID Carbidopa/Levodopa [Carbidopa-Levodopa 25-100 Tab] 0.5 each PO TID 09/13/18 Diclofenac Sodium [Voltaren] 4 gm TP BID PRN 09/13/18 Halobetasol Prop 0.05% Tp Crm [Ultravate (Nf)] 1 applic TP 09/13/18 Loperamide HCl [Loperamide] 2 mg PO 09/13/18 Review of Systems - Review of Systems Constitutional: reports: Fever, Lethargy, Weakness Eyes: reports: No Symptoms HENT: reports: No Symptoms Neck: reports: No Symptoms Cardiovascular: reports: No Symptoms Respiratory: reports: No Symptoms Gastrointestinal: reports: No Symptoms Genitourinary: reports: No Symptoms Musculoskeletal: reports: No Symptoms Integumentary: reports: No Symptoms Neurological: reports: No Symptoms Endocrine: reports: No Symptoms Hematology/Lymphatic: reports: No Symptoms Psychiatric: reports: No Symptoms Physical Exam Vital Signs: Vital Signs Temperature 98.2 F 09/14/18 10:00 Pulse Rate 71 09/14/18 10:00 Respiratory Rate 20 09/14/18 10:00 Blood Pressure 103/46 L 09/14/18 10:00 O2 Sat by Pulse Oximetry (%) 96 09/14/18 10:00 Constitutional: Yes: Well Nourished, Obese Eyes: Yes: Conjunctiva Clear Neck: Yes: Supple Cardiovascular: Yes: Regular Rate and Rhythm Respiratory: Yes: Regular, CTA Bilaterally Gastrointestinal: Yes: Normal Bowel Sounds, Soft Musculoskeletal: Yes: WNL Extremities: Yes: Other Neurological: Yes: Alert, Oriented Psychiatric: Yes: Alert, Oriented Labs: CBC, BMP 09/14/18 05:55 09/14/18 05:55 Imaging - Results Chest X-ray: Report Reviewed, Image Reviewed Cat Scan: Report Reviewed, Image Reviewed Assessment/Plan mary jane lactic acidosis dirrhoea lethargy gm negative bacteremia uti parkinsonism patient has been started on cefriaxone plan i will continue ceftriaxone for now repeat blood cx results nutrition monitor closely await for identification of bacteria rest as per the team
[2018-09-14] MEDS: SODIUM BICARBONATE 8.4% - 75 MEQ in SODIUM CHLORIDE 0.45% 1,000 ML IV SCH ×2 (12:51→21:16)
[2018-09-14] MEDS ORDERED: PT OWN MED DRAWER 7, Y5N ONE ×2 (13:42→20:31)
--- NOTE | 2018-09-14 16:47 | PN ---
Physical Exam: SUBJECTIVE: Patient seen and examined at bedside. Pt still complaining of persistent diarrhea. Rapid called overnight due to unresponsiveness to sternal rub by, however pt was assessed by night team and pt was responsive. Per nurse, pt seemed short of breath overnight. Pt denies f/c, chest pain, abd pain, urinary symptoms. OBJECTIVE: Vital Signs Temperature 98.0 F 09/14/18 16:45 Pulse Rate 81 09/14/18 16:45 Respiratory Rate 20 09/14/18 20:00 Blood Pressure 120/60 09/14/18 16:45 O2 Sat by Pulse Oximetry (%) 97 09/14/18 20:00 GENERAL: AAOx3. NAD. Resting comfortably in bed. HEENT: AT/NC. EOMI. Dry mucus membranes. NORMA. NECK: Supple. Normal ROM. LUNGS: CTA B/L. No wheezes/crackles noted. HEART: Decreased heart sounds due to body habitus. RRR. Normal S1, S2. No murmurs noted. ABDOMEN: Soft, NT/ND. Ileostomy bag in place draining cloudy yellow urine. +RUQ abd TTP. MUSCULOSKELETAL: Normal range of motion at all joints. No bony deformities or tenderness. No CVA tenderness. EXTREMITIES: 2+ dorsalis pedis pulses b/l. No peripheral edema. NEUROLOGICAL: Normal speech, facial symmetry noted. Cranial nerves II-XII intact. Normal speech. 5/5 muscle strength in upper b/l extremities. 4/5 muscle strength LLE. 3/5 muscle strength due to pain. B/l sensation intact. SKIN: Warm, dry, normal turgor, no rashes or lesions noted, normal capillary refill. CBC, BMP 09/14/18 05:55 09/14/18 17:30 Microbiology 09/13/18 11:54 Stool Salmonella/Shigella Culture - Preliminary Pending Organism 09/13/18 11:54 Stool Yersinia Culture - Preliminary NO ENTERIC PATHOGENS, 24 HOURS, ON PRIMARY PLATES 09/13/18 11:54 Stool Vibrio Culture - Final NO GROWTH OF VIBRIO SPECIES OBTAINED 09/13/18 11:54 Stool Escherichia coli 0157 Culture - Final NO GROWTH OF E COLI 0157 OBTAINED 09/13/18 15:15 Urine - Urostomy Bag Urine Culture - Preliminary Lactose Fermenting Neg Bacilli Non Lactose Fermenting Gnb Lactose Fermenting Neg Bacilli#2 09/13/18 05:35 Blood - Peripheral Venous Blood Culture - Preliminary Pending Organism 09/13/18 05:35 Blood - Peripheral Venous Blood Culture - Preliminary NO GROWTH OBTAINED AFTER 24 HOURS, INCUBATION TO CONTINUE FOR 4 DAYS. Active Medications Acetaminophen (Ofirmev Injection -) 1,000 mg IVPB Q6H PRN PRN Reason: PAIN OR FEVER Calcium Carbonate/Cholecalciferol (Os-Jay 500+D -) 1 tab PO TID [facility] Last Admin: 09/14/18 13:49 Dose: 1 tab Carbidopa/Levodopa (Sinemet 25/100 -) 0.5 each PO TID [facility] [place] Last Admin: 09/14/18 13:49 Dose: 0.5 each Heparin Sodium (Porcine) (Heparin -) 5,000 unit SQ TID [facility] [place] Last Admin: 09/14/18 13:48 Dose: 5,000 unit Ceftriaxone Sodium 2 gm/ (Dextrose) 50 mls @ 100 mls/hr IVPB DAILY [facility] [place] Sodium Bicarbonate 75 meq/ (Sodium Chloride) 1,075 mls @ 100 mls/hr IV Q10H [facility] [place] Last Admin: 09/14/18 12:51 Dose: 100 mls/hr Insulin Aspart (Novolog Vial Sliding Scale -) 1 vial SQ ACHS [facility] [place]; Protocol Last Admin: 09/14/18 16:54 Dose: Not Given Multivitamins/Minerals/Vitamin C (Tab-A-Vit -) 1 tab PO DAILY [facility] [place] Last Admin: 09/14/18 10:16 Dose: 1 tab Pantoprazole Sodium (Protonix -) 40 mg PO BID [facility] [place] Last Admin: 09/14/18 10:16 Dose: 40 mg Pramipexole Dihydrochloride (Mirapex -) 0.5 mg PO BID [facility] [place] Last Admin: 09/14/18 10:16 Dose: 0.5 mg Pregabalin (Lyrica -) 50 mg PO TID [facility] [place] Last Admin: 09/14/18 13:49 Dose: 50 mg IMAGING: * Head CT: No acute IC pathology. * CTAP: s/p radical cystectomy w/ ileal loop RLQ. Mild dilatation of collecting system and ureters proximally. Multiple ventral hernias. NO evid of SBO. Paraumbilical hernia. +diverticulosis w/o acute diverticulitis. No free air/ fluid present. * CXR: Weak inspiratory effort. No acute chest pathology. * Head CT (09/14): No acute IC pathology. ASSESSMENT/PLAN: 77F w/ pmhx of HTN, DM, Bladder cx s/p post ileal conduit, multiple SBOs, SAH, Parkinson's CKD, DVT s/p IVC filter presented to the hospital for complaints of lethargy and 4 day history of diarrhea #NATASHA on CKD; likely due to volume depletion as pt has had multiple episodes of diarrhea and has poor PO intake. Additionally, pt is on home diuretics. -BUN/Cr worsening, 49/6.3 this evening. Baseline ~1.5. -Per renal, no indication for SHANK TAPPER or bicarb at this time, cont IVf hydration with 1/2 NS and 1.5 amps of bicarb due to NAGMA; await further renal recs #Severe sepsis 2/2 GNB bacteremia; unknown if source if from GI or urine -C.diff neg, Stool cx/ BCx pending -UCx showed +LFGNB; await final report -Cont Ceftriaxone 1gm IVPB daily #Diarrhea; likely 2/2 viral gastroenteritis, r/o bacterial -check stool studies/C.diff -BCx/UCx ordered #Elevated lactate; Resolved. Now 1.2 #HTN; currently hypotensive -hold all home meds #DM; BS 130 -BGM/ISS ACHS -hold home DM meds #Chronic LE edema -Uses Lasix PRN at home; hold for now as pt is volume-depleted #Parkinson's -Cont home meds: Carbidopa/Levodopa 0.5 TID, Mirapex 0.5 mg PO BID #Prophylaxis -SQH -Protonix 40 mg PO BID #FEN -1/2NS w/ 1.5 amp HCO3 -recheck lytes in AM- -diabetic/sodium-controlled diet dispo -full code -admit to med-surg Visit type - Emergency Visit Emergency Visit: Yes ED Registration Date: 09/13/18 Care time: The patient presented to the Emergency Department on the above date and was hospitalized for further evaluation of their emergent condition. - New Patient This patient is new to me today: No - Critical Care Critical Care patient: No
--- NOTE | 2018-09-14 17:46 | PN ---
Teaching Attending Note Name of Resident: Humaira Valero ATTENDING PHYSICIAN STATEMENT I saw and evaluated the patient. I reviewed the resident's note and discussed the case with the resident. I agree with the resident's findings and plan as documented. SUBJECTIVE: No fever or chills . feels a little better . abd pain and diarrhea continue OBJECTIVE: NAD, awake, alert. cooperative HEENT: dry MM. no JVD CV: RRR, no MRG Lungs: CTAB Abd: obese, soft, TTP in RUQ and epigastric area and LUQ, no rebound tendenress. yellow urine in collecting bag, cleared compared to yesterday . umbilical hernia .NL BS Ext: no edema or eryhtema. . surgical scar on anterior R knee. ASSESSMENT AND PLAN: 77 y/o lady with h/o HTN, DM, Bladder cancer s/p ileal conduit, SBO, abd wall hernias, SAH, CKD ( Cr base line 1.5 ) , IVC filter who presented with lethargy and diarrhea.She was found to have NATASHA. 1- NATASHA : due to volume depletion in the setting of diarrhea and poor po intake while on ACEI and HCTZ - cr worse , expect it to plateau soon .cont IVf with bicarb - hold lisinopril and HCTXZ and home lasix - appreciate renal help 2- Severe sepsis with G- bacteremia: source could be the urine or GI tract . - stool cx is growing G- , possible salmonella species , will wait for final ID. Salmonella bacteremia is possible but rare ( < 5%). - cont Ctx ( will cover urinary source and salmonella ). can't use Levaquin due to prolonged Qtc 3- Diarrhea. viral vs bacterial follow final stool cx - IVF 4- Non AG metabolic acidosis: due to diarrhea and renal failure. lactic is NL. - bicarb started with IVF , . monitor 5- h/o HTN:cont ot hole HTN meds 6- documented h/o heart failure. volume depletion now. uses PRN lasix at home. hold Dispo HLOC DVT px : heparin
[2018-09-14 19:04] LABS: ANION GAP 10 MMOL/L (8-16); BLOOD UREA NITROGEN 49 mg/dL (7-18); CALCIUM 7.3 mg/dL (8.5-10.1); CHLORIDE 116 mmol/L (98-107); CO2 18 mmol/L (21-32); CREATININE 6.3 mg/dL (0.55-1.3); GLUCOSE,RANDOM 88 mg/dL (74-106); POTASSIUM 3.1 mmol/L (3.5-5.1); SODIUM 143 mmol/L (136-145)
[2018-09-14] MEDS ORDERED: POTASSIUM CHLORIDE TABS 20 MEQ TABLET.ER (FP) PO ONE (20:45)
[2018-09-15] MEDS: SODIUM BICARBONATE 8.4% - 75 MEQ in SODIUM CHLORIDE 0.45% 1,000 ML IV SCH ×3 (05:19→17:22)
[2018-09-15] MEDS ORDERED: PT OWN MED DRAWER 7, Y5N ONE ×5 (06:23→21:15)
--- NOTE | 2018-09-15 06:29 | HOSP ---
Subjective - Review of Symptoms Events since last encounter: infusion therapy nurse machine learning intern paged regarding patient experiencing chest pain. Upon presentation, patient endorses feeling sharp chest pain that is radiating to her back. It is exacerbated by movement. This pain is new to her, and she denies experiencing similar symptoms in the past. Denies palpitations, shortness of breath. Vital signs 111/48 HR 68 RR 18 O2 97% room air Temp 98.0F Exam General: Patient is alert, oriented, in mild distress Pulmonary: Lungs clear to auscultation bilaterally Cardiac: Distant heart sounds. +S1, S2 auscultated without murmur, rub, or gallop. Chest: Chest pain reproducible upon palpation of left upper chest. Abdomen: Obese, soft nontender to palpation, non distended Extremities: No pitting edema noted bilaterally Assessment, Plan Atypical chest pain likely secondary to musculoskeletal etiology as the same pain is reproducible upon palpation of anterior chest. EKG unchanged from prior study upon admission. No acute ischemic changes noted. Follow Troponin to rule out cardiac etiology of chest pain. Monitor for changes in vital signs, worsening symptoms Physical Examination Vital Signs: Vital Signs Temperature 98.0 F 09/15/18 02:00 Pulse Rate 71 09/15/18 02:00 Respiratory Rate 20 09/15/18 02:00 Blood Pressure 106/42 L 09/15/18 02:00 O2 Sat by Pulse Oximetry (%) 97 09/14/18 20:00 Labs: CBC, BMP 09/14/18 05:55 09/14/18 17:30 Visit type - Emergency Visit Emergency Visit: Yes ED Registration Date: 09/13/18 Care time: The patient presented to the Emergency Department on the above date and was hospitalized for further evaluation of their emergent condition. - New Patient This patient is new to me today: Yes Date on this admission: 09/15/18 - Critical Care Critical Care patient: No
[2018-09-15] MEDS: CALCIUM 500MG/VIT-D 200 UNITS COMBO TABLET (FP) PO SCH ×3 (06:33→21:54)
[2018-09-15] MEDS: CARBIDOPA/LEVODOPA 25/100 TABLET (FP) PO SCH ×3 (06:33→21:55)
[2018-09-15] MEDS: PREGABALIN 50 MG CAPSULE PO SCH ×3 (06:33→21:54)
[2018-09-15] MEDS: HEPARIN NA (PORCINE) 5,000 UNITS/ML 1ML VIAL SQ SCH ×3 (06:34→21:56)
[2018-09-15] MEDS: INSULIN SLIDING SCALE (NOVOLOG) 1 VIAL SQ SCH ×4 (06:34→21:54)
[2018-09-15 07:08] LABS: HEMATOCRIT 29.1 % (32.4-45.2); HEMOGLOBIN 9.7 GM/dL (10.7-15.3); MCH 29.4 pg (25.7-33.7); MCHC 33.4 g/dl (32.0-36.0); MEAN CELL VOLUME 88.2 fl (80-96); MEAN PLT VOLUME 10.6 fl (7.5-11.1); PLATELET COUNT 98 K/MM3 (134-434); RDW 15.6 % (11.6-15.6)
[2018-09-15 07:33] LABS: ANION GAP 7 MMOL/L (8-16); BLOOD UREA NITROGEN 48 mg/dL (7-18); CALCIUM 7.4 mg/dL (8.5-10.1); CHLORIDE 118 mmol/L (98-107); CO2 17 mmol/L (21-32); GLUCOSE,RANDOM 104 mg/dL (74-106); MAGNESIUM 1.9 mg/dL (1.8-2.4); POTASSIUM 3.4 mmol/L (3.5-5.1); SODIUM 143 mmol/L (136-145)
[2018-09-15] MEDS ORDERED: cefTRIAXone SODIUM 1 GM VIAL ONE (08:29)
[2018-09-15] MEDS ORDERED: DEXTROSE 5%-WATER - 50 ML IVPB ONE (08:29)
[2018-09-15] MEDS: PANTOPRAZOLE 40 MG TABLET (FP) PO SCH ×2 (09:36→21:54)
[2018-09-15] MEDS: MULTIVITAMINS (DAILY MVI) TABLET (FP) PO SCH (09:36)
[2018-09-15] MEDS: CEFTRIAXONE 2 GM in DEXTROSE 5%-WATER - 50 ML IVPB SCH (09:37)
[2018-09-15] MEDS: PRAMIPEXOLE DIHYDROCHLORIDE 0.5 MG TABLET PO SCH ×2 (09:37→21:53)
[2018-09-15] MEDS ORDERED: DEXTROSE 5% IVPB ONE (09:43)
[2018-09-15] MEDS ORDERED: WATER IVPB ONE (09:43)
[2018-09-15] MEDS ORDERED: POTASSIUM ACETATE IVPB ONE (09:43)
[2018-09-15] MEDS ORDERED: POTASSIUM CHLORIDE TABS 20 MEQ TABLET.ER (FP) PO ONE (09:53)
--- NOTE | 2018-09-15 10:50 | PN ---
Teaching Attending Note Name of Resident: Valentin Sagastume ATTENDING PHYSICIAN STATEMENT I saw and evaluated the patient. I reviewed the resident's note and discussed the case with the resident. I agree with the resident's findings and plan as documented. SUBJECTIVE: no fever or chills last night , abd pain has improved, cont to have diarrhea , non bloody and watery. Feels better and stronger today . compensator she complained of CP that was worse with deep breath . denies any SOB , or palpitations or sweating. she was evaluated by Night MD and EKG/trop were done. Now her pain is better but still there , no radiation. OBJECTIVE: NAD, awake, alert. cooperative HEENT: MMM. no JVD CV: RRR, no MRG Lungs: CTAB Abd: obese, soft, generalized TTP, no rebound tendeness. yellow urine in collecting bag, . umbilical hernia .NL BS Ext: no edema or eryhtema. . surgical scar on anterior R knee. TTP over L sided chest wall musckes and sternal area ASSESSMENT AND PLAN: 77 y/o lady with h/o HTN, DM, Bladder cancer s/p ileal conduit, SBO, abd wall hernias, SAH, CKD ( Cr base line 1.5 ) , IVC filter who presented with lethargy and diarrhea.She was found to have NATASHA. 1- NATASHA : due to volume depletion - Cr started to improve - COnt hold lisinopri and diuretics - Cont IVF 2- Severe sepsis with G- bacteremia: source could be the urine or GI tract . - Stool cx with Salmonella, and blood cx with non lactose fermenting GNB. will wait identification to identify source ( Salmonella vs urine source ) - cont ceftriaxone for now which will cover salmonella and urine pathogens. 3- Diarrhea. viral vs bacterial - IVF - ceftriaxone 4- Cp: likely musculoskeletal as reproducible. trop NL , will review her EKG . check another trop 5- AG metabolic acidosis: due to diarrhea - cont bicarb gtt 6- h/o HTN:cont to hold HTN meds Dispo HLOC DVT px : heparin
--- NOTE | 2018-09-15 11:28 | PN ---
Physical Exam: SUBJECTIVE: Patient seen and examined at bedside. OVN complained of chest pain now resolved, EKG and troponins were unchanged. Diarrhea continues >5x last night. Urine bag is clearer according to patient. No chest pain, SOB, n/v/d OBJECTIVE: Vital Signs Period Temp Pulse Resp BP Sys/Adorno Pulse Ox Last 24 Hr 97.6 F-98.2 F 68-81 18-20 97-126/42-60 97 GENERAL: A&Ox3, no acute distress ENT: Moist mucus membranes NECK: No JVD LUNGS: CTA, no wheezes HEART: RRR, no murmurs ABDOMEN: Soft, nontender, BS present, urostomy bag in place draining ~150cc clear yellow urine MUSCULOSKELETAL: No CVA Tenderness EXTREMITIES: 2+ pulses, no edema. NEUROLOGICAL: Cranial nerves II-XII intact. Laboratory Results - last 24 hr 09/14/18 09/14/18 09/14/18 12:07 16:53 17:30 WBC RBC Hgb Hct MCV MCH MCHC RDW Plt Count MPV Sodium 143 Potassium 3.1 L Chloride 116 H Carbon Dioxide 18 L Anion Gap 10 BUN 49 H Creatinine 6.3 H Creat Clearance w eGFR 6.41 POC Glucometer 156 89 Random Glucose 88 Calcium 7.3 L Magnesium Troponin I 09/14/18 09/15/18 09/15/18 20:34 05:57 06:30 WBC 4.0 RBC 3.30 L Hgb 9.7 L Hct 29.1 L MCV 88.2 MCH 29.4 MCHC 33.4 RDW 15.6 Plt Count 98 L MPV 10.6 Sodium Potassium Chloride Carbon Dioxide Anion Gap BUN Creatinine Creat Clearance w eGFR POC Glucometer 109 107 Random Glucose Calcium Magnesium Troponin I 09/15/18 06:30 WBC RBC Hgb Hct MCV MCH MCHC RDW Plt Count MPV Sodium 143 Potassium 3.4 L Chloride 118 H Carbon Dioxide 17 L Anion Gap 7 L BUN 48 H Creatinine 6.0 H Creat Clearance w eGFR 6.78 POC Glucometer Random Glucose 104 Calcium 7.4 L Magnesium 1.9 Troponin I 0.03 Active Medications Generic Name Dose Route Start Last Admin Trade Name Freq PRN Reason Stop Dose Admin Acetaminophen 1,000 mg 09/14/18 02:18 Ofirmev Injection - IVPB Q6H PRN PAIN OR FEVER Calcium Carbonate/Cholecalciferol 1 tab 09/13/18 22:34 09/15/18 06:33 Os-Jay 500+D - PO 1 tab TID [facility] Administration Carbidopa/Levodopa 0.5 each 09/14/18 06:00 09/15/18 06:33 Sinemet 25/100 - PO 0.5 each TID [facility] Administration Heparin Sodium (Porcine) 5,000 unit 09/14/18 06:00 09/15/18 06:34 Heparin - SQ Not Given TID [facility]IA Ceftriaxone Sodium 2 gm/ 50 mls @ 100 mls/hr 09/15/18 10:00 09/15/18 09:37 Dextrose IVPB 100 mls/hr DAILY [facility] Administration Sodium Bicarbonate 75 meq/ 1,075 mls @ 100 mls/hr 09/14/18 12:00 09/15/18 09: 35 Sodium Chloride IV Not Given Q10H [facility] Insulin Aspart 1 vial 09/14/18 07:00 09/15/18 06:34 Novolog Vial Sliding Scale - SQ Not Given ACHS [facility] Protocol Multivitamins/Minerals/Vitamin C 1 tab 09/14/18 10:00 09/15/18 09:36 Tab-A-Vit - PO 1 tab DAILY [facility]IA Administration Pantoprazole Sodium 40 mg 09/14/18 10:00 09/15/18 09:36 Protonix - PO 40 mg BID GL[facility]IA Administration Pramipexole Dihydrochloride 0.5 mg 09/14/18 10:00 09/15/18 09:37 Mirapex - PO 0.5 mg BID [facility] Administration Pregabalin 50 mg 09/14/18 06:00 09/15/18 06:33 Lyrica - PO 50 mg TID [facility] Administration ASSESSMENT/PLAN: 77F w/ pmhx of HTN, DM, Bladder cx s/p post ileal conduit, multiple SBOs, SAH, Parkinson's CKD, DVT s/p IVC filter presented to the hospital for complaints of lethargy and 4 day history of diarrhea #NATASHA on CKD: most likely a factor of volume depletion and consistent diarrhea -Creatinine mildly improved today to 6.0 from 6.3 -cont 1/2 NS and bicarb -renal following #Severe sepsis 2/2 GNB bacteremia: could be from urinary tract or GI tract and diarrhea -ceftriaxone 2gm continued -f/u cultures #Diarrhea: likely 2/2 viral gastroenteritis, r/o bacterial -BCx/UCx pending -continue hydrating #Hypertension: normotensive today -hold all home meds #Diabetes: -BGM/ISS ACHS #Chronic LE edema -Uses Lasix PRN at home; hold for now as pt is volume-depleted #Parkinson's -Cont home meds: Carbidopa/Levodopa 0.5 TID, Mirapex 0.5 mg PO BID #Prophylaxis -SQH -Protonix 40 mg PO BID #FEN -1/2NS w/ 1.5 amp HCO3 -recheck lytes in AM- -diabetic/sodium-controlled diet dispo -full code -monitor on med surg until cultures return, then re-evaluate disposition Visit type - Emergency Visit Emergency Visit: No - New Patient This patient is new to me today: No - Critical Care Critical Care patient: No
--- NOTE | 2018-09-15 11:39 | PN ---
Progress Note (short form) - Note Progress Note: Renal follow up for NATASHA Pt seen and examined at the bedside continues to have frequent loose stools no sob, cp, abd pain on IVF making urine Vital Signs Temperature 98.0 F 09/15/18 02:00 Pulse Rate 71 09/15/18 02:00 Respiratory Rate 20 09/15/18 02:00 Blood Pressure 106/42 L 09/15/18 02:00 O2 Sat by Pulse Oximetry (%) 97 09/14/18 20:00 Intake & Output 09/12/18 09/13/18 09/14/18 09/15/18 23:59 23:59 23:59 23:59 Intake Total 600 500 700 Output Total 250 600 Balance 350 500 100 Weight 72.575 kg NAD awake and alert RRR CTA No LE edema CBC, BMP 09/15/18 06:30 09/15/18 06:30 Current Medications Acetaminophen (Ofirmev Injection -) 1,000 mg IVPB Q6H PRN PRN Reason: PAIN OR FEVER Calcium Carbonate/Cholecalciferol (Os-Jay 500+D -) 1 tab PO TID [facility] Last Admin: 09/15/18 06:33 Dose: 1 tab Carbidopa/Levodopa (Sinemet 25/100 -) 0.5 each PO TID [facility] Last Admin: 09/15/18 06:33 Dose: 0.5 each Heparin Sodium (Porcine) (Heparin -) 5,000 unit SQ TID [facility] Last Admin: 09/15/18 06:34 Dose: Not Given Ceftriaxone Sodium 2 gm/ (Dextrose) 50 mls @ 100 mls/hr IVPB DAILY [facility] Last Admin: 09/15/18 09:37 Dose: 100 mls/hr Sodium Bicarbonate 75 meq/ (Sodium Chloride) 1,075 mls @ 100 mls/hr IV Q10H [facility] Last Admin: 09/15/18 09:35 Dose: Not Given Insulin Aspart (Novolog Vial Sliding Scale -) 1 vial SQ ACHS [facility]; Protocol Last Admin: 09/15/18 11:36 Dose: Not Given Multivitamins/Minerals/Vitamin C (Tab-A-Vit -) 1 tab PO DAILY [facility] Last Admin: 09/15/18 09:36 Dose: 1 tab Pantoprazole Sodium (Protonix -) 40 mg PO BID [facility] Last Admin: 09/15/18 09:36 Dose: 40 mg Pramipexole Dihydrochloride (Mirapex -) 0.5 mg PO BID [facility] Last Admin: 09/15/18 09:37 Dose: 0.5 mg Pregabalin (Lyrica -) 50 mg PO TID [facility] Last Admin: 09/15/18 06:33 Dose: 50 mg 77 year old woman with hx of bladder cancer s/p resection with ileual conduit, hypertension, hx of SBO, IDDM who presented from home with complaints of diarrhea and weakness and found to have NATASHA. #NATASHA on CKD in setting of volume depletion +/- renal hypoprofusion from ERENDIRA + Diuretics #Non-anion gap metabolic acidosis #Hypokalemia #CKD #Bladder Ca with ileual conduit #Diarrhea #r/o pylonephritis Baseline Cr ~1.5 FeUrea is 25% indicating preserved tubular function Renal function stable continue aggressive IVF hydration with bicarbonate CT showed fullness of right renal pelvis however no hydronephrosis seen keep MAP > 65 supplement K to > 3.5 no indication for [employer]CTION [employer] suspect that renal function should normalize once diarrhea is resolved Thank you Stevan Maya DO
--- NOTE | 2018-09-15 12:52 | EKG ---
Test Reason : Blood Pressure : / mmHG Vent. Rate : 070 BPM Atrial Rate : 070 BPM P-R Int : 140 ms QRS Dur : 144 ms QT Int : 428 ms P-R-T Axes : 056 -20 020 degrees QTc Int : 462 ms POOR DATA QUALITY, INTERPRETATION MAY BE ADVERSELY AFFECTED NORMAL SINUS RHYTHM RIGHT BUNDLE BRANCH BLOCK ABNORMAL ECG WHEN COMPARED WITH ECG OF 13-SEP-2018 05:26, PREMATURE VENTRICULAR COMPLEXES ARE NO LONGER PRESENT Confirmed by AIDE HOPKINS MD ([id number]) on 09/15/2018 12:51:36 PM Referred By: Confirmed By:AIDE HOPKINS MD
--- NOTE | 2018-09-15 13:55 | PN ---
Progress Note, Physician History of Present Illness: stable no new issues - Current Medication List Current Medications: Active Medications Acetaminophen (Ofirmev Injection -) 1,000 mg IVPB Q6H PRN PRN Reason: PAIN OR FEVER Calcium Carbonate/Cholecalciferol (Os-Jay 500+D -) 1 tab PO TID [facility] [place] Last Admin: 09/15/18 06:33 Dose: 1 tab Carbidopa/Levodopa (Sinemet 25/100 -) 0.5 each PO TID [facility] Last Admin: 09/15/18 06:33 Dose: 0.5 each Heparin Sodium (Porcine) (Heparin -) 5,000 unit SQ TID [facility] Last Admin: 09/15/18 06:34 Dose: Not Given Ceftriaxone Sodium 2 gm/ (Dextrose) 50 mls @ 100 mls/hr IVPB DAILY [facility] Last Admin: 09/15/18 09:37 Dose: 100 mls/hr Sodium Bicarbonate 75 meq/ (Sodium Chloride) 1,075 mls @ 100 mls/hr IV Q10H [facility] [place] Last Admin: 09/15/18 09:35 Dose: Not Given Insulin Aspart (Novolog Vial Sliding Scale -) 1 vial SQ ACHS [facility]; Protocol Last Admin: 09/15/18 11:36 Dose: Not Given Multivitamins/Minerals/Vitamin C (Tab-A-Vit -) 1 tab PO DAILY [facility] Last Admin: 09/15/18 09:36 Dose: 1 tab Pantoprazole Sodium (Protonix -) 40 mg PO BID [facility] [place] Last Admin: 09/15/18 09:36 Dose: 40 mg Pramipexole Dihydrochloride (Mirapex -) 0.5 mg PO BID [facility] Last Admin: 09/15/18 09:37 Dose: 0.5 mg Pregabalin (Lyrica -) 50 mg PO TID [facility] [place] Last Admin: 09/15/18 06:33 Dose: 50 mg - Objective Vital Signs: Vital Signs Temperature 98.0 F 09/15/18 02:00 Pulse Rate 71 09/15/18 02:00 Respiratory Rate 20 09/15/18 02:00 Blood Pressure 106/42 L 09/15/18 02:00 O2 Sat by Pulse Oximetry (%) 97 09/14/18 20:00 Constitutional: Yes: No Distress, Calm, Obese Cardiovascular: Yes: S1, S2 Gastrointestinal: Yes: Normal Bowel Sounds, Soft Musculoskeletal: Yes: WNL Extremities: Yes: WNL Neurological: Yes: Alert Psychiatric: Yes: Alert Labs: CBC, BMP 09/15/18 06:30 09/15/18 06:30 Assessment/Plan mary jane lactic acidosis dirrhoea lethargy gm negative bacteremia uti parkinsonism patient has been started on cefriaxone plan continue ceftriaxone repeat blood cx await rest as per the team
[2018-09-16] MEDS ORDERED: PT OWN MED DRAWER 7, Y5N ONE ×2 (05:06→21:32)
[2018-09-16] MEDS: SODIUM BICARBONATE 8.4% - 75 MEQ in SODIUM CHLORIDE 0.45% 1,000 ML IV SCH ×2 (05:31→14:00)
[2018-09-16] MEDS: CARBIDOPA/LEVODOPA 25/100 TABLET (FP) PO SCH ×3 (05:35→21:33)
[2018-09-16] MEDS: CALCIUM 500MG/VIT-D 200 UNITS COMBO TABLET (FP) PO SCH ×3 (05:35→21:33)
[2018-09-16] MEDS: PREGABALIN 50 MG CAPSULE PO SCH ×3 (05:35→21:33)
[2018-09-16] MEDS: HEPARIN NA (PORCINE) 5,000 UNITS/ML 1ML VIAL SQ SCH ×3 (05:37→21:33)
[2018-09-16] MEDS: INSULIN SLIDING SCALE (NOVOLOG) 1 VIAL SQ SCH ×4 (06:08→21:35)
[2018-09-16 07:52] LABS: HEMATOCRIT 28.5 % (32.4-45.2); HEMOGLOBIN 9.9 GM/dL (10.7-15.3); MCH 30.7 pg (25.7-33.7); MCHC 34.8 g/dl (32.0-36.0); MEAN CELL VOLUME 88.2 fl (80-96); MEAN PLT VOLUME 10.4 fl (7.5-11.1); PLATELET COUNT 105 K/MM3 (134-434); RBC 3.22 M/mm3 (3.60-5.2); RDW 15.4 % (11.6-15.6); WHITE BLOOD COUNT 3.6 K/mm3 (4.0-10.0)
[2018-09-16 08:01] LABS: ALBUMIN 2.3 g/dl (3.4-5.0); ALK PHOS 107 U/L (45-117); ANION GAP 4 MMOL/L (8-16); BILIRUBIN,TOTAL 0.3 mg/dL (0.2-1); BLOOD UREA NITROGEN 40 mg/dL (7-18); CALCIUM 7.2 mg/dL (8.5-10.1); CHLORIDE 117 mmol/L (98-107); CO2 21 mmol/L (21-32); CREATININE 4.3 mg/dL (0.55-1.3); GLUCOSE,RANDOM 127 mg/dL (74-106); POTASSIUM 3.2 mmol/L (3.5-5.1); SGOT/AST 16 U/L (15-37); SGPT/ALT 6 U/L (13-61); SODIUM 141 mmol/L (136-145); TOT PROT 5.6 g/dl (6.4-8.2)
[2018-09-16] MEDS ORDERED: POTASSIUM CHLORIDE TABS 20 MEQ TABLET.ER (FP) PO ONE (09:18)
--- NOTE | 2018-09-16 09:31 | PN ---
Progress Note (short form) - Note Progress Note: Renal follow up for NATASHA Pt seen and examined at the bedside continues to have diarrhea, is green in color no sob, cp, abd pain, fever, chills making urine on IVF Vital Signs Temperature 98.4 F 09/16/18 06:51 Pulse Rate 68 09/16/18 06:51 Respiratory Rate 18 09/16/18 06:51 Blood Pressure 135/58 L 09/16/18 06:51 O2 Sat by Pulse Oximetry (%) 95 09/15/18 22:00 Intake & Output 09/13/18 09/14/18 09/15/18 09/16/18 23:59 23:59 23:59 23:59 Intake Total 452 907 0957 1200 Output Total 250 1600 500 Balance 350 500 130 700 Weight 72.575 kg NAD awake and alert RRR CTA No LE edema CBC, BMP 09/16/18 07:00 09/16/18 07:00 Current Medications Acetaminophen (Ofirmev Injection -) 1,000 mg IVPB Q6H PRN PRN Reason: PAIN OR FEVER Calcium Carbonate/Cholecalciferol (Os-Jay 500+D -) 1 tab PO TID [facility] Last Admin: 09/16/18 05:35 Dose: 1 tab Carbidopa/Levodopa (Sinemet 25/100 -) 0.5 each PO TID [facility] Last Admin: 09/16/18 05:35 Dose: 0.5 each Heparin Sodium (Porcine) (Heparin -) 5,000 unit SQ TID [facility] Last Admin: 09/16/18 05:37 Dose: Not Given Ceftriaxone Sodium 2 gm/ (Dextrose) 50 mls @ 100 mls/hr IVPB DAILY [facility] Last Admin: 09/15/18 09:37 Dose: 100 mls/hr Sodium Bicarbonate 75 meq/ (Sodium Chloride) 1,075 mls @ 100 mls/hr IV Q10H [facility] Last Admin: 09/16/18 05:31 Dose: 100 mls/hr Insulin Aspart (Novolog Vial Sliding Scale -) 1 vial SQ ACHS [facility]; Protocol Last Admin: 09/16/18 06:08 Dose: Not Given Multivitamins/Minerals/Vitamin C (Tab-A-Vit -) 1 tab PO DAILY [facility] Last Admin: 09/15/18 09:36 Dose: 1 tab Pantoprazole Sodium (Protonix -) 40 mg PO BID [facility] Last Admin: 09/15/18 21:54 Dose: 40 mg Pramipexole Dihydrochloride (Mirapex -) 0.5 mg PO BID [facility] Last Admin: 09/15/18 21:53 Dose: 0.5 mg Pregabalin (Lyrica -) 50 mg PO TID [facility] Last Admin: 09/16/18 05:35 Dose: 50 mg 77 year old woman with hx of bladder cancer s/p resection with ileual conduit, hypertension, hx of SBO, IDDM who presented from home with complaints of diarrhea and weakness and found to have NATASHA. #NATASHA on CKD in setting of volume depletion +/- renal hypoprofusion from ERENDIRA + Diuretics #Non-anion gap metabolic acidosis from GI losses #Hypokalemia #CKD #Bladder Ca with ileual conduit #Diarrhea #r/o pylonephritis Baseline Cr ~1.5 FeUrea is 25% indicating preserved tubular function Renal function improving continue IVF with bicarb as diarrhea persists supplement K orally Abx as per primary team Thank you Stevan Maya DO
[2018-09-16] MEDS ORDERED: DEXTROSE 5%-WATER - 50 ML IVPB ONE (10:24)
[2018-09-16] MEDS ORDERED: cefTRIAXone SODIUM 1 GM VIAL ONE (10:24)
[2018-09-16] MEDS: CEFTRIAXONE 2 GM in DEXTROSE 5%-WATER - 50 ML IVPB SCH (10:53)
[2018-09-16] MEDS: PRAMIPEXOLE DIHYDROCHLORIDE 0.5 MG TABLET PO SCH ×2 (10:53→21:33)
[2018-09-16] MEDS: MULTIVITAMINS (DAILY MVI) TABLET (FP) PO SCH (10:53)
[2018-09-16] MEDS: PANTOPRAZOLE 40 MG TABLET (FP) PO SCH ×2 (10:53→21:33)
--- NOTE | 2018-09-16 12:57 | PN ---
Progress Note, Physician History of Present Illness: stable still with dirrhoea all the cx reports noted - Current Medication List Current Medications: Active Medications Acetaminophen (Ofirmev Injection -) 1,000 mg IVPB Q6H PRN PRN Reason: PAIN OR FEVER Calcium Carbonate/Cholecalciferol (Os-Jay 500+D -) 1 tab PO TID [facility] Last Admin: 09/16/18 05:35 Dose: 1 tab Carbidopa/Levodopa (Sinemet 25/100 -) 0.5 each PO TID [facility] Last Admin: 09/16/18 05:35 Dose: 0.5 each Heparin Sodium (Porcine) (Heparin -) 5,000 unit SQ TID [facility] Last Admin: 09/16/18 05:37 Dose: Not Given Ceftriaxone Sodium 2 gm/ (Dextrose) 50 mls @ 100 mls/hr IVPB DAILY [facility] Last Admin: 09/16/18 10:53 Dose: 100 mls/hr Sodium Bicarbonate 75 meq/ (Sodium Chloride) 1,075 mls @ 100 mls/hr IV Q10H [facility] Last Admin: 09/16/18 05:31 Dose: 100 mls/hr Insulin Aspart (Novolog Vial Sliding Scale -) 1 vial SQ ACHS [facility]; Protocol Last Admin: 09/16/18 11:53 Dose: 2 unit Multivitamins/Minerals/Vitamin C (Tab-A-Vit -) 1 tab PO DAILY [facility] Last Admin: 09/16/18 10:53 Dose: 1 tab Pantoprazole Sodium (Protonix -) 40 mg PO BID [facility] Last Admin: 09/16/18 10:53 Dose: 40 mg Pramipexole Dihydrochloride (Mirapex -) 0.5 mg PO BID [facility] Last Admin: 09/16/18 10:53 Dose: 0.5 mg Pregabalin (Lyrica -) 50 mg PO TID [facility] Last Admin: 09/16/18 05:35 Dose: 50 mg - Objective Vital Signs: Vital Signs Temperature 98.1 F 09/16/18 10:00 Pulse Rate 68 09/16/18 10:00 Respiratory Rate 18 09/16/18 10:00 Blood Pressure 113/36 L 09/16/18 10:00 O2 Sat by Pulse Oximetry (%) 94 L 09/16/18 09:00 Constitutional: Yes: No Distress, Calm Cardiovascular: Yes: S1, S2 Gastrointestinal: Yes: Normal Bowel Sounds, Soft, Other (dirrhoea) Musculoskeletal: Yes: WNL Extremities: Yes: WNL Labs: CBC, BMP 09/16/18 07:00 09/16/18 07:00 Assessment/Plan mary jane lactic acidosis dirrhoea lethargy gm negative bacteremia uti parkinsonism patient has been started on cefriaxone plan continue ceftriaxone will deescalate by monday rest as per the team patient improving
--- NOTE | 2018-09-16 16:13 | PN ---
Progress Note (short form) - Note Progress Note: Subjective: no fever or chills. No light headedness or CP . no SOB . cont to have diarrhea Objective: Vital Signs: Last Vital Signs Temp Pulse Resp BP Pulse Ox 98.3 F 69 18 125/59 L 94 L 09/16/18 14:18 09/16/18 14:18 09/16/18 14:18 09/16/18 14:18 09/16/18 09:00 Laboratory Results - last 24 hr 09/15/18 09/15/18 09/15/18 17:19 17:20 17:20 WBC RBC Hgb Hct MCV MCH MCHC RDW Plt Count MPV Sodium Potassium Chloride Carbon Dioxide Anion Gap BUN Creatinine Creat Clearance w eGFR POC Glucometer 170 Random Glucose Calcium Total Bilirubin AST ALT Alkaline Phosphatase Total Protein Albumin Ur Random Sodium 47 Stool Occult Blood Negative 09/15/18 09/16/18 09/16/18 21:52 05:34 07:00 WBC 3.6 L RBC 3.22 L Hgb 9.9 L Hct 28.5 L MCV 88.2 MCH 30.7 MCHC 34.8 RDW 15.4 Plt Count 105 L MPV 10.4 Sodium Potassium Chloride Carbon Dioxide Anion Gap BUN Creatinine Creat Clearance w eGFR POC Glucometer 157 125 Random Glucose Calcium Total Bilirubin AST ALT Alkaline Phosphatase Total Protein Albumin Ur Random Sodium Stool Occult Blood 09/16/18 09/16/18 07:00 11:51 WBC RBC Hgb Hct MCV MCH MCHC RDW Plt Count MPV Sodium 141 Potassium 3.2 L Chloride 117 H Carbon Dioxide 21 Anion Gap 4 L BUN 40 H Creatinine 4.3 H Creat Clearance w eGFR 9.96 POC Glucometer 174 Random Glucose 127 H Calcium 7.2 L Total Bilirubin 0.3 AST 16 ALT 6 L Alkaline Phosphatase 107 Total Protein 5.6 L Albumin 2.3 L Ur Random Sodium Stool Occult Blood Physical Exam: NAD, awake, alert. HEENT: MMM. no JVD CV: RRR, no MRG Lungs: CTAB Abd: obese, soft, generalized TTP. yellow urine in collecting bag, . umbilical hernia .NL BS Ext: no edema or eryhtema. . surgical scar on anterior R knee. ASSESSMENT AND PLAN: 77 y/o lady with h/o HTN, DM, Bladder cancer s/p ileal conduit, SBO, abd wall hernias, SAH, CKD ( Cr base line 1.5 ) , IVC filter who presented with lethargy and diarrhea.She was found to have NATASHA. 1- NATASHA : due to volume depletion - Cr cont to improve slowly - COnt hold lisinopri and diuretics - Cont IVF 2- Severe sepsis with G- bacteremia: - apoke to microlab, blood GNB is unlikely salmonella but ID and sens will be done tomorrow . - urine cx final id and sens reviewed. - cont ceftriaxone for now 3- Diarrhea. due to salmonella . pt was notified - IVF - ceftriaxone 4- NOn AG metabolic acidosis: due to diarrhea. Normal bicarb today - cont bicarb gtt due to continued diarrhea. will evaluate tomorrow 6- h/o HTN:cont to hold HTN meds Dispo HLOC DVT px : heparin Visit type - Emergency Visit Emergency Visit: Yes ED Registration Date: 09/13/18 Care time: The patient presented to the Emergency Department on the above date and was hospitalized for further evaluation of their emergent condition. - New Patient This patient is new to me today: No - Critical Care Critical Care patient: No
[2018-09-16] MEDS ORDERED: ACETAMINOPHEN 1000 MG/100 ML VIAL (NON FORMULARY) IVPB PRN (19:18)
[2018-09-17] MEDS ORDERED: SODIUM BICARBONATE 8.4% - 75 MEQ in SODIUM CHLORIDE 0.45% 1,000 ML IV SCH
[2018-09-17] MEDS ORDERED: PT OWN MED DRAWER 7, Y5N ONE ×3 (06:09→21:37)
[2018-09-17] MEDS: CALCIUM 500MG/VIT-D 200 UNITS COMBO TABLET (FP) PO SCH ×3 (06:18→21:42)
[2018-09-17] MEDS: CARBIDOPA/LEVODOPA 25/100 TABLET (FP) PO SCH ×3 (06:18→21:43)
[2018-09-17] MEDS: PREGABALIN 50 MG CAPSULE PO SCH ×3 (06:18→21:42)
[2018-09-17] MEDS: HEPARIN NA (PORCINE) 5,000 UNITS/ML 1ML VIAL SQ SCH ×3 (06:18→21:42)
[2018-09-17] MEDS: INSULIN SLIDING SCALE (NOVOLOG) 1 VIAL SQ SCH ×4 (06:19→21:43)
[2018-09-17 08:15] LABS: BASO % 0.2 % (0-2.0); EOS % 1.2 % (0-4.5); HEMOGLOBIN 9.5 GM/dL (10.7-15.3); LYMPH % 15.3 % (8-40); MCH 29.6 pg (25.7-33.7); MCHC 33.8 g/dl (32.0-36.0); MEAN CELL VOLUME 87.5 fl (80-96); MEAN PLT VOLUME 9.9 fl (7.5-11.1); MONO % 12.4 % (3.8-10.2); NEUT % 70.9 % (42.8-82.8); PLATELET COUNT 114 K/MM3 (134-434); RDW 15.3 % (11.6-15.6); WHITE BLOOD COUNT 4.4 K/mm3 (4.0-10.0)
[2018-09-17 08:26] LABS: ANION GAP 4 MMOL/L (8-16); BLOOD UREA NITROGEN 32 mg/dL (7-18); CALCIUM 7.2 mg/dL (8.5-10.1); CHLORIDE 117 mmol/L (98-107); CO2 23 mmol/L (21-32); CREATININE 2.9 mg/dL (0.55-1.3); GLUCOSE,RANDOM 142 mg/dL (74-106); MAGNESIUM 1.7 mg/dL (1.8-2.4); PHOSPHOROUS 2.5 mg/dL (2.5-4.9); POTASSIUM 3.5 mmol/L (3.5-5.1); SODIUM 144 mmol/L (136-145)
[2018-09-17] MEDS ORDERED: SODIUM CHLORIDE 1,000 ML IV SCH (09:15)
--- NOTE | 2018-09-17 09:32 | PN ---
Physical Exam: SUBJECTIVE: Patient seen and examined at bedside. Pt still reports dark-green diarrhea, however the frequency of episodes have decreased since admission. She denies cp, sob, abd pain. Also admits to draining clear yellow urine. Letty PO diet well, no nausea/vomiting. OBJECTIVE: Vital Signs Temperature 98.6 F 09/17/18 06:44 Pulse Rate 70 09/17/18 06:44 Respiratory Rate 20 09/17/18 06:44 Blood Pressure 136/56 L 09/17/18 06:44 O2 Sat by Pulse Oximetry (%) 97 09/16/18 21:00 GENERAL: AAOx3. NAD. Resting comfortably in bed. HEENT: AT/NC. EOMI. Dry mucus membranes. NORMA. NECK: Supple. Normal ROM. LUNGS: CTA B/L. No wheezes/crackles noted. HEART: Decreased heart sounds due to body habitus. RRR. Normal S1, S2. No murmurs noted. ABDOMEN: Soft, NT/ND. Ileostomy bag in place draining clear yellow urine. MUSCULOSKELETAL: Normal range of motion at all joints. No bony deformities or tenderness. No CVA tenderness. EXTREMITIES: 2+ dorsalis pedis pulses b/l. No peripheral edema. NEUROLOGICAL: Normal speech, facial symmetry noted. Cranial nerves II-XII intact. Normal speech. 5/5 muscle strength in upper b/l extremities. 4/5 muscle strength LLE. 3/5 muscle strength due to pain. B/l sensation intact. SKIN: Warm, dry, normal turgor, no rashes or lesions noted, normal capillary refill. CBC, BMP 09/17/18 06:17 09/17/18 06:17 Microbiology 09/13/18 11:54 Stool Salmonella/Shigella Culture - Preliminary Salmonella Species 09/13/18 11:54 Stool Campylobacter Culture - Final NO GROWTH OF CAMPYLOBACTER SPECIES OBTAINED 09/13/18 11:54 Stool Yersinia Culture - Final NO GROWTH OF YERSINIA SPECIES OBTAINED 09/13/18 11:54 Stool Vibrio Culture - Final NO GROWTH OF VIBRIO SPECIES OBTAINED 09/13/18 11:54 Stool Escherichia coli 0157 Culture - Final NO GROWTH OF E COLI 0157 OBTAINED 09/13/18 05:35 Blood - Peripheral Venous Blood Culture - Preliminary NO GROWTH OBTAINED AFTER 96 HOURS, INCUBATION TO CONTINUE FOR 1 DAYS. 09/13/18 05:35 Blood - Peripheral Venous Blood Culture - Preliminary Non Lactose Fermenting Gnb 09/13/18 15:15 Urine - Urostomy Bag Urine Culture - Final Klebsiella Pneumoniae Proteus Mirabilis Escherichia Coli 09/14/18 09:46 Blood - Peripheral Venous Blood Culture - Preliminary NO GROWTH OBTAINED AFTER 48 HOURS, INCUBATION TO CONTINUE FOR 3 DAYS. 09/14/18 10:00 Blood - Peripheral Venous Blood Culture - Preliminary NO GROWTH OBTAINED AFTER 48 HOURS, INCUBATION TO CONTINUE FOR 3 DAYS. Active Medications Acetaminophen (Ofirmev Injection -) 1,000 mg IVPB Q6H PRN PRN Reason: PAIN OR FEVER Calcium Carbonate/Cholecalciferol (Os-Jay 500+D -) 1 tab PO TID [facility] Last Admin: 09/17/18 06:18 Dose: 1 tab Carbidopa/Levodopa (Sinemet 25/100 -) 0.5 each PO TID [facility] Last Admin: 09/17/18 06:18 Dose: 0.5 each Heparin Sodium (Porcine) (Heparin -) 5,000 unit SQ TID [facility] Last Admin: 09/17/18 06:18 Dose: 5,000 unit Ceftriaxone Sodium 2 gm/ (Dextrose) 50 mls @ 100 mls/hr IVPB DAILY [facility] Sodium Chloride (Normal Saline -) 1,000 mls @ 83 mls/hr IV ASDIR [facility] Insulin Aspart (Novolog Vial Sliding Scale -) 1 vial SQ ACHS [facility]; Protocol Last Admin: 09/17/18 06:19 Dose: Not Given Multivitamins/Minerals/Vitamin C (Tab-A-Vit -) 1 tab PO DAILY [facility] Pantoprazole Sodium (Protonix -) 40 mg PO BID [facility] Last Admin: 09/16/18 21:33 Dose: 40 mg Pramipexole Dihydrochloride (Mirapex -) 0.5 mg PO BID [facility] Last Admin: 09/16/18 21:33 Dose: 0.5 mg Pregabalin (Lyrica -) 50 mg PO TID [facility] Last Admin: 09/17/18 06:18 Dose: 50 mg IMAGING: * Head CT: No acute IC pathology. * CTAP: s/p radical cystectomy w/ ileal loop RLQ. Mild dilatation of collecting system and ureters proximally. Multiple ventral hernias. NO evid of SBO. Paraumbilical hernia. +diverticulosis w/o acute diverticulitis. No free air/ fluid present. * CXR: Weak inspiratory effort. No acute chest pathology. * Head CT (09/14): No acute IC pathology. ASSESSMENT/PLAN: 77F w/ pmhx of HTN, DM, Bladder cx s/p post ileal conduit, multiple SBOs, SAH, Parkinson's CKD, DVT s/p IVC filter presented to the hospital for complaints of lethargy and 4 day history of diarrhea #NATASHA on CKD; 2/2 volume depletion -Cr improving, now 2.9, was 4.3 yesterday -Holding Lisinopril and diuretics for now -Switch to NS @ 83 #Severe sepsis 2/2 GNB bacteremia; unknown if source if from GI or urine -C.diff neg, BCx neg x48h (09/14); according to lab, bacteremia unlikely Salmonella; await final C/S results -UCx showed +Klebsiella pneumo, Proteus mirabilis, E. coli -Cont Ceftriaxone 2gm IVPB daily (started 09/15); Per ID, will de-escalate by Monday, await further recs #Diarrhea; likely 2/2 viral gastroenteritis, r/o bacterial -SCx +Salmonella -cont Ceftriaxone and IVf #NAGMA; Resolved. Bicarb normal. -Switched 1/2NS w/ bicarb gtt to NS #HTN; currently hypotensive -hold all home meds #DM; BS 130 -BGM/ISS ACHS -hold home DM meds #Chronic LE edema -Uses Lasix PRN at home; hold for now #Parkinson's -Cont home meds: Carbidopa/Levodopa 0.5 TID, Mirapex 0.5 mg PO BID #Prophylaxis -SQH -Protonix 40 mg PO BID #FEN -NS @ 83 -recheck lytes in AM -diabetic/sodium-controlled diet dispo -full code -med-surg Visit type - Emergency Visit Emergency Visit: Yes ED Registration Date: 09/13/18 Care time: The patient presented to the Emergency Department on the above date and was hospitalized for further evaluation of their emergent condition. - New Patient This patient is new to me today: No - Critical Care Critical Care patient: No
[2018-09-17] MEDS ORDERED: DEXTROSE 5%-WATER - 50 ML IVPB ONE (10:27)
[2018-09-17] MEDS ORDERED: cefTRIAXone SODIUM 1 GM VIAL ONE (10:27)
[2018-09-17] MEDS: PRAMIPEXOLE DIHYDROCHLORIDE 0.5 MG TABLET PO SCH ×2 (10:30→21:42)
[2018-09-17] MEDS: PANTOPRAZOLE 40 MG TABLET (FP) PO SCH ×2 (10:30→21:43)
[2018-09-17] MEDS: MULTIVITAMINS (DAILY MVI) TABLET (FP) PO SCH (10:30)
[2018-09-17] MEDS: CEFTRIAXONE 2 GM in DEXTROSE 5%-WATER - 50 ML IVPB SCH (10:31)
[2018-09-17 11:42] LABS: ANISOCYTOSIS 0; MACROCYTOSIS 0; OVALOCYTE 1+; PLATELET ESTIMATE DECREASED; TEAR DROP CELLS 1+
--- NOTE | 2018-09-17 14:27 | PN ---
Progress Note (short form) - Note Progress Note: Renal follow up for NATASHA Pt seen and examined at the bedside still has diarrhea no sob, cp, abd pain making urine on IVF with bicarb Vital Signs Temperature 97.3 F L 09/17/18 10:00 Pulse Rate 82 09/17/18 10:00 Respiratory Rate 18 09/17/18 10:00 Blood Pressure 148/59 L 09/17/18 10:00 O2 Sat by Pulse Oximetry (%) 94 L 09/17/18 09:00 Intake & Output 09/14/18 09/15/18 09/16/18 09/17/18 23:59 23:59 23:59 23:59 Intake Total 500 1730 2130 1170 Output Total 1600 1400 800 Balance 500 130 730 370 NAD awake and alert RRR CTA No LE edema CBC, BMP 09/17/18 06:17 09/17/18 06:17 Current Medications Acetaminophen (Ofirmev Injection -) 1,000 mg IVPB Q6H PRN PRN Reason: PAIN OR FEVER Calcium Carbonate/Cholecalciferol (Os-Jay 500+D -) 1 tab PO TID [facility] Last Admin: 09/17/18 14:25 Dose: 1 tab Carbidopa/Levodopa (Sinemet 25/100 -) 0.5 each PO TID [facility] Last Admin: 09/17/18 14:25 Dose: 0.5 each Heparin Sodium (Porcine) (Heparin -) 5,000 unit SQ TID [facility] Last Admin: 09/17/18 14:26 Dose: 5,000 unit Ceftriaxone Sodium 2 gm/ (Dextrose) 50 mls @ 100 mls/hr IVPB DAILY [facility] Last Admin: 09/17/18 10:31 Dose: 100 mls/hr Sodium Chloride (Normal Saline -) 1,000 mls @ 83 mls/hr IV ASDIR [facility] Last Admin: 09/17/18 10:31 Dose: 83 mls/hr Insulin Aspart (Novolog Vial Sliding Scale -) 1 vial SQ ACHS [facility]; Protocol Last Admin: 09/17/18 12:07 Dose: 2 units Multivitamins/Minerals/Vitamin C (Tab-A-Vit -) 1 tab PO DAILY [facility] Last Admin: 09/17/18 10:30 Dose: 1 tab Pantoprazole Sodium (Protonix -) 40 mg PO BID [facility] Last Admin: 09/17/18 10:30 Dose: 40 mg Pramipexole Dihydrochloride (Mirapex -) 0.5 mg PO BID [facility] Last Admin: 09/17/18 10:30 Dose: 0.5 mg Pregabalin (Lyrica -) 50 mg PO TID [facility] Last Admin: 09/17/18 14:26 Dose: 50 mg 77 year old woman with hx of bladder cancer s/p resection with ileual conduit, hypertension, hx of SBO, IDDM who presented from home with complaints of diarrhea and weakness and found to have NATASHA. #NATASHA on CKD in setting of volume depletion +/- renal hypoprofusion from ERENDIRA + Diuretics #Non-anion gap metabolic acidosis from GI losses #Hypokalemia #CKD #Bladder Ca with ileual conduit #Diarrhea Baseline Cr ~1.5 FeUrea is 25% indicating preserved tubular function Renal function improving, would maintain IVF with bicarb as long as pt is having diarreha Trend renal function and electrolytes daily Abx as per primary team Thank you Stevan Myaa DO
--- NOTE | 2018-09-17 14:53 | PN ---
Teaching Attending Note Name of Resident: Annetta Call ATTENDING PHYSICIAN STATEMENT I saw and evaluated the patient. I reviewed the resident's note and discussed the case with the resident. I agree with the resident's findings and plan as documented. SUBJECTIVE: No fever or chills . No abd pain. cont to have diarrhea , but improved.No CP and no SOB. OBJECTIVE: NAD, awake, alert. HEENT: MMM. no JVD CV: RRR, no MRG Lungs: CTAB Abd: obese, soft, NT. yellow urine in collecting bag, . umbilical hernia .NL BS Ext: no edema or eryehtema. . surgical scar on anterior R knee. ASSESSMENT AND PLAN: 77 y/o lady with h/o HTN, DM, Bladder cancer s/p ileal conduit, SBO, abd wall hernias, SAH, CKD ( Cr base line 1.5 ) , IVC filter who presented with lethargy and diarrhea.She was found to have NATASHA. 1- NATASHA : due to volume depletion - Cr cont to improve - COnt hold lisinopri and diuretics - Cont IVF 2- Severe sepsis with Salmonella bacteremia - cont Ceftriaxone - check echo to r/o vegetations and evaluate Aortic root 3- Diarrhea. due to salmonella. - Cont IVF with Bicarb - ceftriaxone 4- Non AG metabolic acidosis: due to diarrhea.resolved but will cont bicarb gtt 6- h/o HTN:cont to hold HTN meds . if BP becomes elevated will resume Dispo HLOC DVT px : heparin ASSESSMENT AND PLAN:
--- NOTE | 2018-09-17 15:15 | PN ---
Progress Note, Physician History of Present Illness: patient stable no complaints - Current Medication List Current Medications: Active Medications Calcium Carbonate/Cholecalciferol (Os-Jay 500+D -) 1 tab PO TID [facility] Last Admin: 09/17/18 14:25 Dose: 1 tab Carbidopa/Levodopa (Sinemet 25/100 -) 0.5 each PO TID [facility] Last Admin: 09/17/18 14:25 Dose: 0.5 each Heparin Sodium (Porcine) (Heparin -) 5,000 unit SQ TID [facility] Last Admin: 09/17/18 14:26 Dose: 5,000 unit Ceftriaxone Sodium 2 gm/ (Dextrose) 50 mls @ 100 mls/hr IVPB DAILY [facility] Last Admin: 09/17/18 10:31 Dose: 100 mls/hr Sodium Bicarbonate 75 meq/ (Sodium Chloride) 1,075 mls @ 75 mls/hr IV Q14H [facility] Insulin Aspart (Novolog Vial Sliding Scale -) 1 vial SQ ACHS [facility]; Protocol Last Admin: 09/17/18 12:07 Dose: 2 units Multivitamins/Minerals/Vitamin C (Tab-A-Vit -) 1 tab PO DAILY [facility] Last Admin: 09/17/18 10:30 Dose: 1 tab Pantoprazole Sodium (Protonix -) 40 mg PO BID [facility] Last Admin: 09/17/18 10:30 Dose: 40 mg Pramipexole Dihydrochloride (Mirapex -) 0.5 mg PO BID [facility] Last Admin: 09/17/18 10:30 Dose: 0.5 mg Pregabalin (Lyrica -) 50 mg PO TID [facility] Last Admin: 09/17/18 14:26 Dose: 50 mg - Objective Vital Signs: Vital Signs Temperature 98.4 F 09/17/18 14:00 Pulse Rate 83 09/17/18 14:00 Respiratory Rate 16 09/17/18 14:00 Blood Pressure 129/69 09/17/18 14:00 O2 Sat by Pulse Oximetry (%) 94 L 09/17/18 09:00 Constitutional: Yes: No Distress, Calm, Obese Cardiovascular: Yes: Regular Rate and Rhythm Respiratory: Yes: Regular, CTA Bilaterally Gastrointestinal: Yes: Normal Bowel Sounds, Soft Musculoskeletal: Yes: WNL Extremities: Yes: WNL Neurological: Yes: Alert, Oriented Psychiatric: Yes: Alert, Oriented Labs: CBC, BMP 09/17/18 06:17 09/17/18 06:17 Assessment/Plan mary jane lactic acidosis dirrhoea lethargy gm negative bacteremia uti parkinsonism patient has been started on cefriaxone plan continue ceftriaxone will need at least for 2 weeks and then will probably need oral repeat blood cx negative so far
[2018-09-17] MEDS: SODIUM BICARBONATE 8.4% - 75 MEQ in SODIUM CHLORIDE 0.45% 1,000 ML IV SCH (17:03)
[2018-09-17] MEDS ORDERED: ACETAMINOPHEN 325 MG TABLET (FP) PO PRN (18:13)
[2018-09-18] MEDS: SODIUM BICARBONATE 8.4% - 75 MEQ in SODIUM CHLORIDE 0.45% 1,000 ML IV SCH (04:43)
[2018-09-18] MEDS ORDERED: PT OWN MED DRAWER 7, Y5N ONE ×2 (05:10→21:08)
[2018-09-18] MEDS: PREGABALIN 50 MG CAPSULE PO SCH ×3 (05:16→21:14)
[2018-09-18] MEDS: HEPARIN NA (PORCINE) 5,000 UNITS/ML 1ML VIAL SQ SCH ×3 (05:16→21:14)
[2018-09-18] MEDS: CARBIDOPA/LEVODOPA 25/100 TABLET (FP) PO SCH ×3 (05:16→21:14)
[2018-09-18] MEDS: CALCIUM 500MG/VIT-D 200 UNITS COMBO TABLET (FP) PO SCH ×3 (05:16→21:13)
[2018-09-18] MEDS: INSULIN SLIDING SCALE (NOVOLOG) 1 VIAL SQ SCH ×4 (06:46→21:14)
--- NOTE | 2018-09-18 07:30 | ECHO ---
Name: KEYANA BAXTER Exam:Adult Echocardiogram Study Date: 09/17/2018 03:00 PM Age: 77 yrs Reason For Study: BACTEREMIA AND MURMUR Height: 62 in Weight: 160 lb BSA: 1.7 m2 MMode/2D Measurements & Calculations RVDd: 0.93 cm Ao root diam: 2.9 cm IVSd: 1.6 cm LA dimension: 4.1 cm LVIDd: 4.1 cm ACS: 1.5 cm LVIDs: 2.7 cm LVPWd: 0.96 cm IVSs: 1.2 cm LVPWs: 1.2 cm EDV(Teich): 73.4 ml ESV(Teich): 26.8 ml Doppler Measurements & Calculations MV E max danielito: 76.5 cm/sec Ao V2 max: 149.3 cm/sec MV A max danielito: 95.3 cm/sec Ao max P.9 mmHg MV E/A: 0.80 Ao V2 mean: 113.8 cm/sec Ao mean P.7 mmHg Ao V2 VTI: 28.8 cm TR max danielito: 297.1 cm/sec Med Peak E' Danielito: 6.0 cm/sec TR max P.4 mmHg Med E/e': 12.7 Lat Peak E' Danielito: 10.8 cm/sec Lat E/e': 7.1 Procedure A complete two-dimensional transthoracic echocardiogram was performed (2D, M-mode, Doppler and color flow Doppler). Technically limited study. Left Ventricle The left ventricle is normal in size. Left ventricular systolic function is normal. Ejection Fraction = 65- 70%. Grade I diastolic dysfunction, (abnormal relaxation pattern). Ratio E/E'= 12. No regional wall m otion abnormalities noted. Right Ventricle The right ventricle is normal size. The right ventricular systolic function is normal. Atria Borderline left atrial enlargement. Right atrial size is normal. Mitral Valve There is mild mitral annular calcification. There is mild mitral regurgitation. Tricuspid Valve The tricuspid valve is normal in structure and function. No tricuspid regurgitation. Aortic Valve The aortic valve is normal in structure and function. No aortic regurgitation is present. Pulmonic Valve The pulmonic valve is not well visualized. Great Vessels The aortic root is normal size. Pericardium/Pleura There is no pericardial effusion. Interpretation Summary Technically limited study The left ventricle is normal in size. Left ventricular systolic function is normal. No regional wall motion abnormalities noted. Ejection Fraction = 65-70%. Grade I diastolic dysfunction, (abnormal relaxation pattern). Ratio E/E'= 12 The right ventricular systolic function is normal. Borderline left atrial enlargement. Right atrial size is normal. There is mild mitral annular calcification. There is mild mitral regurgitation. There is no pericardial effusion. Previous study is not available for comparison Tone Palacios MD 09/17/2018 03:49 PM
[2018-09-18 09:07] LABS: HEMOGLOBIN 9.6 GM/dL (10.7-15.3); MCH 28.9 pg (25.7-33.7); MEAN CELL VOLUME 87.6 fl (80-96); PLATELET COUNT 121 K/MM3 (134-434); RBC 3.31 M/mm3 (3.60-5.2); RDW 15.7 % (11.6-15.6); WHITE BLOOD COUNT 4.5 K/mm3 (4.0-10.0)
[2018-09-18 09:32] LABS: ANION GAP 2 MMOL/L (8-16); BLOOD UREA NITROGEN 23 mg/dL (7-18); CALCIUM 7.4 mg/dL (8.5-10.1); CHLORIDE 116 mmol/L (98-107); CO2 26 mmol/L (21-32); GLUCOSE,RANDOM 162 mg/dL (74-106); POTASSIUM 3.7 mmol/L (3.5-5.1); SODIUM 144 mmol/L (136-145)
[2018-09-18] MEDS ORDERED: cefTRIAXone SODIUM 1 GM VIAL ONE (09:52)
[2018-09-18] MEDS ORDERED: DEXTROSE 5%-WATER - 50 ML IVPB ONE (09:53)
[2018-09-18] MEDS: PRAMIPEXOLE DIHYDROCHLORIDE 0.5 MG TABLET PO SCH ×2 (10:27→21:14)
[2018-09-18] MEDS: PANTOPRAZOLE 40 MG TABLET (FP) PO SCH ×2 (10:27→21:13)
[2018-09-18] MEDS: MULTIVITAMINS (DAILY MVI) TABLET (FP) PO SCH (10:27)
[2018-09-18] MEDS: CEFTRIAXONE 2 GM in DEXTROSE 5%-WATER - 50 ML IVPB SCH (10:27)
--- NOTE | 2018-09-18 11:16 | PN ---
Teaching Attending Note Name of Resident: Annetta aCll ATTENDING PHYSICIAN STATEMENT I saw and evaluated the patient. I reviewed the resident's note and discussed the case with the resident. I agree with the resident's findings and plan as documented. SUBJECTIVE: No fever or chills. No abd pain. No fever or chills. had one episode of diarrhea yesterday and none today . stool started to form ( loose ) OBJECTIVE: NAD, awake, alert. HEENT: MMM. CV: RRR, 2/6 Sm at base Lungs: CTAB Abd: obese, soft, mild tenderness in all quadrants today . yellow urine in collecting bag, . umbilical hernia .NL BS Ext: no edema or eryehtema. . surgical scar on anterior R knee. ASSESSMENT AND PLAN: 77 y/o lady with h/o HTN, DM, Bladder cancer s/p ileal conduit, SBO, abd wall hernias, SAH, CKD ( Cr base line 1.5 ) , IVC filter who presented with lethargy and diarrhea.She was found to have NATASHA. 1- NATASHA: due to volume depletion. - Cr cont to improve - COnt to hold lisinopri and diuretics - Cont IVF . dc bicarb gtt as diarrhea resolved 2- Severe sepsis with Salmonella bacteremia - cont Ceftriaxone - echo with no vegetations 3- Diarrhea. due to salmonella. resolved - ceftriaxone 4- Non AG metabolic acidosis: due to diarrhea.resolved and diarrhea has resolved. dc bicarb gtt 6- h/o HTN: cont to hold HTN meds. if BP becomes elevated will resume Dispo HLOC DVT px : heparin
--- NOTE | 2018-09-18 11:32 | PN ---
Progress Note (short form) - Note Progress Note: Renal follow up for NATASHA Pt seen and examined at the bedside diarrhea improving tolerating oral diet on IVF making urine Vital Signs Temperature 98.0 F 09/18/18 10:00 Pulse Rate 74 09/18/18 10:00 Respiratory Rate 19 09/18/18 10:00 Blood Pressure 134/58 L 09/18/18 10:00 O2 Sat by Pulse Oximetry (%) 95 09/17/18 21:00 Intake & Output 09/15/18 09/16/18 09/17/18 09/18/18 23:59 23:59 23:59 23:59 Intake Total 1730 2130 3235 920 Output Total 1600 1400 1450 750 Balance 831 729 6445 170 NAD awake and alert RRR CTA No LE edema CBC, BMP 09/18/18 08:30 09/18/18 08:30 Current Medications Acetaminophen (Tylenol -) 650 mg PO Q6H PRN PRN Reason: HEADACHE Last Admin: 09/17/18 18:25 Dose: 650 mg Calcium Carbonate/Cholecalciferol (Os-Jay 500+D -) 1 tab PO TID [facility] Last Admin: 09/18/18 05:16 Dose: 1 tab Carbidopa/Levodopa (Sinemet 25/100 -) 0.5 each PO TID [facility] Last Admin: 09/18/18 05:16 Dose: 0.5 each Heparin Sodium (Porcine) (Heparin -) 5,000 unit SQ TID [facility] Last Admin: 09/18/18 05:16 Dose: 5,000 unit Ceftriaxone Sodium 2 gm/ (Dextrose) 50 mls @ 100 mls/hr IVPB DAILY [facility] Last Admin: 09/18/18 10:27 Dose: 100 mls/hr Sodium Chloride (Normal Saline -) 1,000 mls @ 75 mls/hr IV ASDIR [facility] Insulin Aspart (Novolog Vial Sliding Scale -) 1 vial SQ ACHS [facility]; Protocol Last Admin: 09/18/18 11:16 Dose: 2 units Multivitamins/Minerals/Vitamin C (Tab-A-Vit -) 1 tab PO DAILY [facility] Last Admin: 09/18/18 10:27 Dose: 1 tab Pantoprazole Sodium (Protonix -) 40 mg PO BID [facility] Last Admin: 09/18/18 10:27 Dose: 40 mg Pramipexole Dihydrochloride (Mirapex -) 0.5 mg PO BID [facility] Last Admin: 09/18/18 10:27 Dose: 0.5 mg Pregabalin (Lyrica -) 50 mg PO TID [facility] Last Admin: 09/18/18 05:16 Dose: 50 mg 77 year old woman with hx of bladder cancer s/p resection with ileual conduit, hypertension, hx of SBO, IDDM who presented from home with complaints of diarrhea and weakness and found to have NATASHA. #NATASHA on CKD in setting of volume depletion +/- renal hypoprofusion from ERENDIRA + Diuretics #Non-anion gap metabolic acidosis from GI losses #Hypokalemia #CKD #Bladder Ca with ileual conduit #Diarrhea Baseline Cr ~1.5 Renal function improved can d/c bicarb gtt as serum bicarb >24 continue gentle IVF for now, can plan to stop by tomorrow morning continue Abx as per primary team Thank you Stevan Maya DO
[2018-09-18] MEDS: SODIUM CHLORIDE 1,000 ML IV SCH (12:00)
--- NOTE | 2018-09-18 14:13 | PN ---
Progress Note, Physician History of Present Illness: patient stable no complaints - Current Medication List Current Medications: Active Medications Acetaminophen (Tylenol -) 650 mg PO Q6H PRN PRN Reason: HEADACHE Last Admin: 09/17/18 18:25 Dose: 650 mg Calcium Carbonate/Cholecalciferol (Os-Jay 500+D -) 1 tab PO TID [facility] Last Admin: 09/18/18 05:16 Dose: 1 tab Carbidopa/Levodopa (Sinemet 25/100 -) 0.5 each PO TID [facility] Last Admin: 09/18/18 05:16 Dose: 0.5 each Heparin Sodium (Porcine) (Heparin -) 5,000 unit SQ TID [facility] Last Admin: 09/18/18 05:16 Dose: 5,000 unit Ceftriaxone Sodium 2 gm/ (Dextrose) 50 mls @ 100 mls/hr IVPB DAILY [facility] Last Admin: 09/18/18 10:27 Dose: 100 mls/hr Sodium Chloride (Normal Saline -) 1,000 mls @ 75 mls/hr IV ASDIR [facility] Insulin Aspart (Novolog Vial Sliding Scale -) 1 vial SQ ACHS [facility]; Protocol Last Admin: 09/18/18 11:16 Dose: 2 units Multivitamins/Minerals/Vitamin C (Tab-A-Vit -) 1 tab PO DAILY [facility] Last Admin: 09/18/18 10:27 Dose: 1 tab Pantoprazole Sodium (Protonix -) 40 mg PO BID [facility] Last Admin: 09/18/18 10:27 Dose: 40 mg Pramipexole Dihydrochloride (Mirapex -) 0.5 mg PO BID [facility] Last Admin: 09/18/18 10:27 Dose: 0.5 mg Pregabalin (Lyrica -) 50 mg PO TID [facility] Last Admin: 09/18/18 05:16 Dose: 50 mg - Objective Vital Signs: Vital Signs Temperature 98.0 F 09/18/18 10:00 Pulse Rate 74 09/18/18 10:00 Respiratory Rate 09/18/18 10:00 Blood Pressure 134/58 L 09/18/18 10:00 O2 Sat by Pulse Oximetry (%) 95 09/18/18 09:00 Constitutional: Yes: No Distress, Calm, Obese Cardiovascular: Yes: S1, S2 Respiratory: Yes: Regular, CTA Bilaterally Musculoskeletal: Yes: WNL Extremities: Yes: WNL Neurological: Yes: Alert, Oriented Psychiatric: Yes: Alert, Oriented Labs: CBC, BMP 09/18/18 08:30 09/18/18 08:30 Assessment/Plan mary jane lactic acidosis dirrhoea lethargy gm negative bacteremia uti parkinsonism patient has been started on cefriaxone plan continue ceftriaxone will need at least for 2 weeks and then will probably need oral repeat blood cx negative so far
--- NOTE | 2018-09-18 17:52 | PN ---
Physical Exam: SUBJECTIVE: Patient seen and examined at bedside. No acute events overnight. Pt states diarrhea has been improving, 1BM overnight. Denies cp, sob, abd pain, f/c , n/v. OBJECTIVE: Vital Signs 09/18/18 09/18/18 10:00 13:50 Temperature 98.0 F 97.7 F Pulse Rate 74 95 H Respiratory 19 16 Rate Blood Pressure 134/58 L 138/56 L GENERAL: AAOx3. NAD. Resting comfortably in bed. HEENT: AT/NC. EOMI. Dry mucus membranes. NORMA. NECK: Supple. Normal ROM. LUNGS: CTA B/L. No wheezes/crackles noted. HEART: Decreased heart sounds due to body habitus. RRR. Normal S1, S2. No murmurs noted. ABDOMEN: Soft, NT/ND. Ileostomy bag in place draining clear yellow urine. MUSCULOSKELETAL: Normal range of motion at all joints. No bony deformities or tenderness. No CVA tenderness. EXTREMITIES: 2+ dorsalis pedis pulses b/l. No peripheral edema. NEUROLOGICAL: Normal speech, facial symmetry noted. Cranial nerves II-XII intact. Normal speech. 5/5 muscle strength in upper b/l extremities. 4/5 muscle strength LLE. 3/5 muscle strength due to pain. B/l sensation intact. SKIN: Warm, dry, normal turgor, no rashes or lesions noted, normal capillary refill. CBC, BMP 09/18/18 08:30 09/18/18 08:30 Microbiology 09/14/18 09:46 Blood - Peripheral Venous Blood Culture - Preliminary NO GROWTH OBTAINED AFTER 96 HOURS, INCUBATION TO CONTINUE FOR 1 DAYS. 09/14/18 10:00 Blood - Peripheral Venous Blood Culture - Preliminary NO GROWTH OBTAINED AFTER 96 HOURS, INCUBATION TO CONTINUE FOR 1 DAYS. 09/13/18 05:35 Blood - Peripheral Venous Blood Culture - Final NO GROWTH AFTER 5 DAYS INCUBATION Active Medications Acetaminophen (Tylenol -) 650 mg PO Q6H PRN PRN Reason: HEADACHE Last Admin: 09/17/18 18:25 Dose: 650 mg Calcium Carbonate/Cholecalciferol (Os-Jay 500+D -) 1 tab PO TID [facility] Last Admin: 09/18/18 16:42 Dose: 1 tab Carbidopa/Levodopa (Sinemet 25/100 -) 0.5 each PO TID [facility] Last Admin: 09/18/18 16:42 Dose: 0.5 each Heparin Sodium (Porcine) (Heparin -) 5,000 unit SQ TID [facility] Last Admin: 09/18/18 16:41 Dose: 5,000 unit Ceftriaxone Sodium 2 gm/ (Dextrose) 50 mls @ 100 mls/hr IVPB DAILY [facility] Last Admin: 09/18/18 10:27 Dose: 100 mls/hr Sodium Chloride (Normal Saline -) 1,000 mls @ 75 mls/hr IV ASDIR [facility] Last Admin: 09/18/18 12:00 Dose: 75 mls/hr Insulin Aspart (Novolog Vial Sliding Scale -) 1 vial SQ ACHS [facility]; Protocol Last Admin: 09/18/18 16:45 Dose: 4 units Multivitamins/Minerals/Vitamin C (Tab-A-Vit -) 1 tab PO DAILY [facility] Last Admin: 09/18/18 10:27 Dose: 1 tab Pantoprazole Sodium (Protonix -) 40 mg PO BID [facility] Last Admin: 09/18/18 10:27 Dose: 40 mg Pramipexole Dihydrochloride (Mirapex -) 0.5 mg PO BID [facility] Last Admin: 09/18/18 10:27 Dose: 0.5 mg Pregabalin (Lyrica -) 50 mg PO TID [facility] Last Admin: 09/18/18 16:42 Dose: 50 mg IMAGING: Head CT: No acute IC pathology. CTAP: s/p radical cystectomy w/ ileal loop RLQ. Mild dilatation of collecting system and ureters proximally. Multiple ventral hernias. NO evid of SBO. Paraumbilical hernia. +diverticulosis w/o acute diverticulitis. No free air /fluid present. CXR: Weak inspiratory effort. No acute chest pathology. Head CT (09/14): No acute IC pathology. ASSESSMENT/PLAN: 77F w/ pmhx of HTN, DM, Bladder cx s/p post ileal conduit, multiple SBOs, SAH, Parkinson's CKD, DVT s/p IVC filter presented to the hospital for complaints of lethargy and 4 day history of diarrhea #NATASHA on CKD; 2/2 volume depletion -Cr stable, now 2.0 -Holding Lisinopril and diuretics for now -NS @ 75; cont to hydrate until kidney function normalizes #Severe sepsis 2/2 Salmonella bacteremia -C.diff neg, BCx neg x96h (09/14) -UCx showed +Klebsiella pneumo, Proteus mirabilis, E. coli -Cont Ceftriaxone 2gm IVPB daily (started 09/15); Per ID, cont Ceftriaxone, will need at least 2 weeks, and then switch to oral abx; Will likely need PICC line upon discharge to cont IV abx treatment #Diarrhea; likely 2/2 viral gastroenteritis, r/o bacterial -SCx +Salmonella -cont Ceftriaxone and IVf #NAGMA; Resolved. Bicarb normal. #HTN; currently hypotensive -hold all home meds #DM; BS 189 -BGM/ISS ACHS -hold home DM meds #Chronic LE edema -Uses Lasix PRN at home; hold for now #Parkinson's -Cont home meds: Carbidopa/Levodopa 0.5 TID, Mirapex 0.5 mg PO BID #Prophylaxis -SQH -Protonix 40 mg PO BID #FEN -NS @ 75 -recheck lytes in AM -diabetic/sodium-controlled diet dispo -full code -med-surg -D/w SW regarding future placement to SNF as pt will need PICC line to continue IV abx treatment Visit type - Emergency Visit Emergency Visit: Yes ED Registration Date: 09/13/18 Care time: The patient presented to the Emergency Department on the above date and was hospitalized for further evaluation of their emergent condition. - New Patient This patient is new to me today: No - Critical Care Critical Care patient: No
[2018-09-19] MEDS ORDERED: PT OWN MED DRAWER 7, Y5N ONE ×3 (06:11→14:17)
[2018-09-19] MEDS: CARBIDOPA/LEVODOPA 25/100 TABLET (FP) PO SCH ×2 (06:29→14:21)
[2018-09-19] MEDS: CALCIUM 500MG/VIT-D 200 UNITS COMBO TABLET (FP) PO SCH ×2 (06:29→14:21)
[2018-09-19] MEDS: PREGABALIN 50 MG CAPSULE PO SCH ×2 (06:29→14:21)
[2018-09-19] MEDS: INSULIN SLIDING SCALE (NOVOLOG) 1 VIAL SQ SCH ×3 (06:30→16:57)
[2018-09-19] MEDS: HEPARIN NA (PORCINE) 5,000 UNITS/ML 1ML VIAL SQ SCH ×2 (06:30→14:21)
--- NOTE | 2018-09-19 07:05 | PN ---
Physical Exam: SUBJECTIVE: Patient seen and examined OBJECTIVE: Last Vital Signs Temp Pulse Resp BP Pulse Ox 98.8 F 75 18 120/54 L 96 09/19/18 06:00 09/19/18 06:00 09/19/18 06:00 09/19/18 06:00 09/18/18 21:00 GENERAL: AAOx3. NAD. Resting comfortably in bed. HEENT: AT/NC. EOMI. Dry mucus membranes. NORMA. NECK: Supple. Normal ROM. LUNGS: CTA B/L. No wheezes/crackles noted. HEART: Decreased heart sounds due to body habitus. RRR. Normal S1, S2. No murmurs noted. ABDOMEN: Soft, NT/ND. Ileostomy bag in place draining clear yellow urine. MUSCULOSKELETAL: Normal range of motion at all joints. No bony deformities or tenderness. No CVA tenderness. EXTREMITIES: 2+ dorsalis pedis pulses b/l. No peripheral edema. NEUROLOGICAL: Normal speech, facial symmetry noted. Cranial nerves II-XII intact. Normal speech. 5/5 muscle strength in upper b/l extremities. 4/5 muscle strength LLE. 3/5 muscle strength due to pain. B/l sensation intact. SKIN: Warm, dry, normal turgor, no rashes or lesions noted, normal capillary refill. CBCD WBC 4.5 K/mm3 (4.0-10.0) 09/18/18 08:30 RBC 3.31 M/mm3 (3.60-5.2) L 09/18/18 08:30 Hgb 9.6 GM/dL (10.7-15.3) L 09/18/18 08:30 Hct 29.0 % (32.4-45.2) L 09/18/18 08:30 MCV 87.6 fl (80-96) 09/18/18 08:30 MCHC 33.0 g/dl (32.0-36.0) 09/18/18 08:30 RDW 15.7 % (11.6-15.6) H 09/18/18 08:30 Plt Count 121 K/MM3 (134-434) L 09/18/18 08:30 MPV 10.0 fl (7.5-11.1) 09/18/18 08:30 CMP Sodium 144 mmol/L (136-145) 09/18/18 08:30 Potassium 3.7 mmol/L (3.5-5.1) 09/18/18 08:30 Chloride 116 mmol/L (98-107) H 09/18/18 08:30 Carbon Dioxide 26 mmol/L (21-32) 09/18/18 08:30 Anion Gap 2 MMOL/L (8-16) L 09/18/18 08:30 BUN 23 mg/dL (7-18) H 09/18/18 08:30 Creatinine 2.0 mg/dL (0.55-1.3) H 09/18/18 08:30 Creat Clearance w eGFR 24.10 (>60) 09/18/18 08:30 Calcium 7.4 mg/dL (8.5-10.1) L 09/18/18 08:30 Total Bilirubin 0.3 mg/dL (0.2-1) 09/16/18 07:00 AST 16 U/L (15-37) 09/16/18 07:00 ALT 6 U/L (13-61) L 09/16/18 07:00 Alkaline Phosphatase 107 U/L (45-117) 09/16/18 07:00 Total Protein 5.6 g/dl (6.4-8.2) L 09/16/18 07:00 Albumin 2.3 g/dl (3.4-5.0) L 09/16/18 07:00 Microbiology 09/14/18 09:46 Blood - Peripheral Venous Blood Culture - Preliminary NO GROWTH OBTAINED AFTER 96 HOURS, INCUBATION TO CONTINUE FOR 1 DAYS. 09/14/18 10:00 Blood - Peripheral Venous Blood Culture - Preliminary NO GROWTH OBTAINED AFTER 96 HOURS, INCUBATION TO CONTINUE FOR 1 DAYS. 09/13/18 05:35 Blood - Peripheral Venous Blood Culture - Final NO GROWTH AFTER 5 DAYS INCUBATION Active Medications Acetaminophen (Tylenol -) 650 mg PO Q6H PRN PRN Reason: HEADACHE Last Admin: 09/17/18 18:25 Dose: 650 mg Calcium Carbonate/Cholecalciferol (Os-Jay 500+D -) 1 tab PO TID [facility] Last Admin: 09/19/18 06:29 Dose: 1 tab Carbidopa/Levodopa (Sinemet 25/100 -) 0.5 each PO TID [facility] Last Admin: 09/19/18 06:29 Dose: 0.5 each Heparin Sodium (Porcine) (Heparin -) 5,000 unit SQ TID [facility] Last Admin: 09/19/18 06:30 Dose: 5,000 unit Ceftriaxone Sodium 2 gm/ (Dextrose) 50 mls @ 100 mls/hr IVPB DAILY [facility] Last Admin: 09/18/18 10:27 Dose: 100 mls/hr Sodium Chloride (Normal Saline -) 1,000 mls @ 75 mls/hr IV ASDIR [facility] Last Admin: 09/18/18 12:00 Dose: 75 mls/hr Insulin Aspart (Novolog Vial Sliding Scale -) 1 vial SQ ACHS [facility]; Protocol Last Admin: 09/19/18 06:30 Dose: 2 units Multivitamins/Minerals/Vitamin C (Tab-A-Vit -) 1 tab PO DAILY [facility] Last Admin: 09/18/18 10:27 Dose: 1 tab Pantoprazole Sodium (Protonix -) 40 mg PO BID [facility] Last Admin: 09/18/18 21:13 Dose: 40 mg Pramipexole Dihydrochloride (Mirapex -) 0.5 mg PO BID [facility] Last Admin: 09/18/18 21:14 Dose: 0.5 mg Pregabalin (Lyrica -) 50 mg PO TID [facility] Last Admin: 09/19/18 06:29 Dose: 50 mg IMAGING: * Head CT: No acute IC pathology. * CTAP: s/p radical cystectomy w/ ileal loop RLQ. Mild dilatation of collecting system and ureters proximally. Multiple ventral hernias. NO evid of SBO. Paraumbilical hernia. +diverticulosis w/o acute diverticulitis. No free air/ fluid present. * CXR: Weak inspiratory effort. No acute chest pathology. Head CT (09/14): No acute IC pathology. ASSESSMENT/PLAN: 77F w/ pmhx of HTN, DM, Bladder cx s/p post ileal conduit, multiple SBOs, SAH, Parkinson's CKD, DVT s/p IVC filter presented to the hospital for complaints of lethargy and 4 day history of diarrhea #NATASHA on CKD; 2/2 volume depletion -Cr stable, now 2.0 -Holding Lisinopril and diuretics for now -NS @ 75; cont to hydrate until kidney function normalizes #Severe sepsis 2/2 Salmonella bacteremia -C.diff neg, BCx neg x96h (09/14) -UCx showed +Klebsiella pneumo, Proteus mirabilis, E. coli -Cont Ceftriaxone 2gm IVPB daily (started 09/15); Per ID, cont Ceftriaxone, will need at least 2 weeks, and then switch to oral abx; Will likely need PICC line upon discharge to cont IV abx treatment #Diarrhea; likely 2/2 viral gastroenteritis, r/o bacterial -SCx +Salmonella -cont Ceftriaxone and IVf #NAGMA; Resolved. Bicarb normal. #HTN; currently hypotensive -hold all home meds #DM; BS 189 -BGM/ISS ACHS -hold home DM meds #Chronic LE edema -Uses Lasix PRN at home; hold for now #Parkinson's -Cont home meds: Carbidopa/Levodopa 0.5 TID, Mirapex 0.5 mg PO BID #Prophylaxis -SQH -Protonix 40 mg PO BID #FEN -NS @ 75 -recheck lytes in AM -diabetic/sodium-controlled diet dispo -full code -med-surg -D/w SW regarding future placement to SNF as pt will need PICC line to continue IV abx treatment
[2018-09-19 07:10] LABS: HEMATOCRIT 28.2 % (32.4-45.2); HEMOGLOBIN 9.5 GM/dL (10.7-15.3); MCH 29.7 pg (25.7-33.7); MCHC 33.6 g/dl (32.0-36.0); MEAN CELL VOLUME 88.2 fl (80-96); MEAN PLT VOLUME 9.8 fl (7.5-11.1); PLATELET COUNT 119 K/MM3 (134-434); RBC 3.19 M/mm3 (3.60-5.2); RDW 15.8 % (11.6-15.6); WHITE BLOOD COUNT 4.8 K/mm3 (4.0-10.0)
[2018-09-19 07:51] LABS: ANION GAP 3 MMOL/L (8-16); BLOOD UREA NITROGEN 16 mg/dL (7-18); CALCIUM 7.3 mg/dL (8.5-10.1); CHLORIDE 116 mmol/L (98-107); CO2 24 mmol/L (21-32); CREATININE 1.7 mg/dL (0.55-1.3); GLUCOSE,RANDOM 179 mg/dL (74-106); POTASSIUM 3.2 mmol/L (3.5-5.1); SODIUM 144 mmol/L (136-145)
[2018-09-19] MEDS ORDERED: cefTRIAXone SODIUM 1 GM VIAL ONE (08:32)
[2018-09-19] MEDS ORDERED: DEXTROSE 5%-WATER - 50 ML IVPB ONE (08:33)
--- NOTE | 2018-09-19 08:43 | PN ---
Teaching Attending Note Name of Resident: Annetta Call ATTENDING PHYSICIAN STATEMENT I saw and evaluated the patient. I reviewed the resident's note and discussed the case with the resident. I agree with the resident's findings and plan as documented. SUBJECTIVE: Patient is feeling better with no acute distress, no nausea or vomiting, still having diarrhea but less than before. OBJECTIVE: Vital Signs Temperature 98.8 F 09/19/18 06:00 Pulse Rate 75 09/19/18 06:00 Respiratory Rate 18 09/19/18 06:00 Blood Pressure 120/54 L 09/19/18 06:00 O2 Sat by Pulse Oximetry (%) 96 09/18/18 21:00 Initial Vital Signs Temp Pulse Resp BP Pulse Ox 96.8 F L 62 14 106/75 95 09/13/18 01:47 09/13/18 01:47 09/13/18 01:47 09/13/18 01:47 09/13/18 01:47 GENERAL: AAOx3. NAD. HEENT: AT/NC. EOMI. MMM, PERLLA NECK: Supple. Normal ROM. LUNGS: CTA B/L. No wheezes/crackles noted. HEART: S1S2 positive, RRR. ABDOMEN: Soft, NT/ND. Ileostomy bag in place draining clear yellow urine. EXTREMITIES:positive for pulses b/l. No peripheral edema. NEUROLOGICAL: Normal speech, facial symmetry noted. Cranial nerves II-XII intact. SKIN: Warm, dry, normal turgor, no rashes or lesions noted, normal capillary refill. CBCD WBC 4.8 K/mm3 (4.0-10.0) 09/19/18 06:30 RBC 3.19 M/mm3 (3.60-5.2) L 09/19/18 06:30 Hgb 9.5 GM/dL (10.7-15.3) L 09/19/18 06:30 Hct 28.2 % (32.4-45.2) L 09/19/18 06:30 MCV 88.2 fl (80-96) 09/19/18 06:30 MCHC 33.6 g/dl (32.0-36.0) 09/19/18 06:30 RDW 15.8 % (11.6-15.6) H 09/19/18 06:30 Plt Count 119 K/MM3 (134-434) L 09/19/18 06:30 MPV 9.8 fl (7.5-11.1) 09/19/18 06:30 CMP Sodium 144 mmol/L (136-145) 09/19/18 06:30 Potassium 3.2 mmol/L (3.5-5.1) L 09/19/18 06:30 Chloride 116 mmol/L (98-107) H 09/19/18 06:30 Carbon Dioxide 24 mmol/L (21-32) 09/19/18 06:30 Anion Gap 3 MMOL/L (8-16) L 09/19/18 06:30 BUN 16 mg/dL (7-18) 09/19/18 06:30 Creatinine 1.7 mg/dL (0.55-1.3) H 09/19/18 06:30 Creat Clearance w eGFR 29.07 (>60) 09/19/18 06:30 Random Glucose 179 mg/dL (74-106) H 09/19/18 06:30 Calcium 7.3 mg/dL (8.5-10.1) L 09/19/18 06:30 Total Bilirubin 0.3 mg/dL (0.2-1) 09/16/18 07:00 AST 16 U/L (15-37) 09/16/18 07:00 ALT 6 U/L (13-61) L 09/16/18 07:00 Alkaline Phosphatase 107 U/L (45-117) 09/16/18 07:00 Total Protein 5.6 g/dl (6.4-8.2) L 09/16/18 07:00 Albumin 2.3 g/dl (3.4-5.0) L 09/16/18 07:00 CARDIAC ENZYMES Creatine Kinase 149 U/L (26-192) 09/15/18 06:30 Troponin I 0.03 ng/ml (0.00-0.05) 09/15/18 06:30 Current Medications Generic Name Dose Route Start Last Admin Trade Name Freq PRN Reason Stop Dose Admin Acetaminophen 650 mg 09/17/18 18:13 09/17/18 18:25 Tylenol - PO 650 mg Q6H PRN Administration HEADACHE Calcium Carbonate/Cholecalciferol 1 tab 09/16/18 22:00 09/19/18 06:29 Os-Jay 500+D - PO 1 tab TID GLORIA Administration Carbidopa/Levodopa 0.5 each 09/16/18 22:00 09/19/18 06:29 Sinemet 25/100 - PO 0.5 each TID GLORIA Administration Heparin Sodium (Porcine) 5,000 unit 09/16/18 22:00 09/19/18 06:30 Heparin - SQ 5,000 unit TID GLORIA Administration Ceftriaxone Sodium 2 gm/ 50 mls @ 100 mls/hr 09/17/18 10:00 09/18/18 10:27 Dextrose IVPB 100 mls/hr DAILY GLORIA Administration Sodium Chloride 1,000 mls @ 75 mls/hr 09/18/18 11:30 09/18/18 12:00 Normal Saline - IV 75 mls/hr ASDIR GLORIA Administration Potassium Chloride 10 meq in 100 mls @ 100 mls/hr 09/19/18 08:15 Potassium Chloride 10 Meq Premix Ivpb - IVPB 09/19/18 11:14 Q60M GLORIA Insulin Aspart 1 vial 09/16/18 22:00 09/19/18 06:30 Novolog Vial Sliding Scale - SQ 2 units ACHS GLORIA Administration Protocol Multivitamins/Minerals/Vitamin C 1 tab 09/17/18 10:00 09/18/18 10:27 Tab-A-Vit - PO 1 tab DAILY GLORIA Administration Pantoprazole Sodium 40 mg 09/16/18 22:00 09/18/18 21:13 Protonix - PO 40 mg BID GLORIA Administration Pramipexole Dihydrochloride 0.5 mg 09/16/18 22:00 09/18/18 21:14 Mirapex - PO 0.5 mg BID GLORIA Administration Pregabalin 50 mg 09/16/18 22:00 09/19/18 06:29 Lyrica - PO 50 mg TID GLORIA Administration Home Medications Medication Instructions Recorded Insulin NPL/Insulin Lispro 30 unit SQ AM 05/04/13 [Humalog Mix 75-25 Pen] Insulin Lispro Protamin/Lispro 27 unit SQ HS 12/22/16 [Humalog Mix 75-25 Vial] Furosemide [Lasix -] 40 mg PO DAILY 05/08/17 Lisinopril/Hydrochlorothiazide 10 mg PO DAILY 05/08/17 [Lisinopril-Hctz 10-12.5 mg Tab] Multivitamins [Multivit ([facility] 1 mg PO DAILY 05/08/17 Formulary)] Omeprazole 40 mg PO BID 05/08/17 Pregabalin [Lyrica -] 50 mg PO TID 05/08/17 Pramipexole Dihydrochloride 0.5 mg PO BID 03/14/18 [Mirapex -] Calcium Carbonate/Vitamin D3 600 mg PO TID 03/15/18 [Calcium 600 + Vit D 400 Softgl] Carbidopa/Levodopa 0.5 each PO TID 09/13/18 [Carbidopa-Levodopa 25-100 Tab] Diclofenac Sodium [Voltaren] 4 gm TP BID PRN 09/13/18 Microbiology 09/14/18 09:46 Blood - Peripheral Venous Blood Culture - Preliminary NO GROWTH OBTAINED AFTER 96 HOURS, INCUBATION TO CONTINUE FOR 1 DAYS. 09/14/18 10:00 Blood - Peripheral Venous Blood Culture - Preliminary NO GROWTH OBTAINED AFTER 96 HOURS, INCUBATION TO CONTINUE FOR 1 DAYS. 09/13/18 05:35 Blood - Peripheral Venous Blood Culture - Final NO GROWTH AFTER 5 DAYS INCUBATION 09/13/18 05:35 Blood - Peripheral Venous Blood Culture - Preliminary Salmonella Species 09/13/18 11:54 Stool Salmonella/Shigella Culture - Preliminary Salmonella Species 09/13/18 11:54 Stool Campylobacter Culture - Final NO GROWTH OF CAMPYLOBACTER SPECIES OBTAINED 09/13/18 11:54 Stool Yersinia Culture - Final NO GROWTH OF YERSINIA SPECIES OBTAINED 09/13/18 11:54 Stool Vibrio Culture - Final NO GROWTH OF VIBRIO SPECIES OBTAINED 09/13/18 11:54 Stool Escherichia coli 0157 Culture - Final NO GROWTH OF E COLI 0157 OBTAINED 09/13/18 15:15 Urine - Urostomy Bag Urine Culture - Final Klebsiella Pneumoniae Proteus Mirabilis Escherichia Coli 09/13/18 11:54 Stool Clostridium difficile Antigen (JINNY) - Final 09/13/18 11:54 Stool Clostridium difficile Toxin Assay - Final ASSESSMENT AND PLAN: 77 y/o lady with h/o HTN, DM, Bladder cancer s/p ileal conduit, SBO, abd wall hernias, SAH, CKD ( Cr base line 1.5 ) , IVC filter who presented with lethargy and diarrhea.She was found to have NATASHA. # NATASHA: improving to near baseline now (1.5)-->1.7 today, as per Nephro. patient can be discharged. As per nephro to hold lisinopril and diuretics till he sees her in the office. # s/p sepsis with Salmonella bacteremia, continue IV Ceftriaxone for 7 more days, echo with no vegetations. # Diarrhea due to salmonella. resolved , continue ceftriaxone # Hx of HTN: cont to hold HTN meds. will be resumed by if needed. follow up with in a week period. discharge patient home. with a picc line for 7 more days of iv Rocephin.
[2018-09-19] MEDS: PANTOPRAZOLE 40 MG TABLET (FP) PO SCH (09:08)
[2018-09-19] MEDS: MULTIVITAMINS (DAILY MVI) TABLET (FP) PO SCH (09:08)
[2018-09-19] MEDS: PRAMIPEXOLE DIHYDROCHLORIDE 0.5 MG TABLET PO SCH (09:08)
[2018-09-19] MEDS: KCL 10 MEQ IVPB 10 MEQ/100 ML INFUS.BAG IVPB SCH ×3 (09:08→13:52)
[2018-09-19] MEDS: CEFTRIAXONE 2 GM in DEXTROSE 5%-WATER - 50 ML IVPB SCH (09:09)
[2018-09-19] MEDS: SODIUM CHLORIDE 1,000 ML IV SCH (12:13)
--- NOTE | 2018-09-19 13:25 | PN ---
Progress Note (short form) - Note Progress Note: Renal follow up for NATASHA Pt seen and examined at the bedside had 2 episodes of loose stools yesterday tolerating oral diet making urine no sob, cp, abd pain Vital Signs Temperature 98.8 F 09/19/18 06:00 Pulse Rate 75 09/19/18 06:00 Respiratory Rate 18 09/19/18 06:00 Blood Pressure 120/54 L 09/19/18 06:00 O2 Sat by Pulse Oximetry (%) 96 09/18/18 21:00 Intake & Output 09/16/18 09/17/18 09/18/18 09/19/18 23:59 23:59 23:59 23:59 Intake Total 2130 3235 1270 1000 Output Total 1400 1450 1250 550 Balance 730 1785 20 450 NAD awake and alert RRR CTA No LE edema CBC, BMP 09/19/18 06:30 09/19/18 06:30 Current Medications Acetaminophen (Tylenol -) 650 mg PO Q6H PRN PRN Reason: HEADACHE Last Admin: 09/17/18 18:25 Dose: 650 mg Calcium Carbonate/Cholecalciferol (Os-Jay 500+D -) 1 tab PO TID [facility] Last Admin: 09/19/18 06:29 Dose: 1 tab Carbidopa/Levodopa (Sinemet 25/100 -) 0.5 each PO TID [facility] Last Admin: 09/19/18 06:29 Dose: 0.5 each Heparin Sodium (Porcine) (Heparin -) 5,000 unit SQ TID [facility] Last Admin: 09/19/18 06:30 Dose: 5,000 unit Ceftriaxone Sodium 2 gm/ (Dextrose) 50 mls @ 100 mls/hr IVPB DAILY [facility] Last Admin: 09/19/18 09:09 Dose: 100 mls/hr Sodium Chloride (Normal Saline -) 1,000 mls @ 75 mls/hr IV ASDIR [facility] Last Admin: 09/19/18 12:13 Dose: 75 mls/hr Insulin Aspart (Novolog Vial Sliding Scale -) 1 vial SQ ACHS [facility]; Protocol Last Admin: 09/19/18 12:14 Dose: 6 units Multivitamins/Minerals/Vitamin C (Tab-A-Vit -) 1 tab PO DAILY [facility] Last Admin: 09/19/18 09:08 Dose: 1 tab Pantoprazole Sodium (Protonix -) 40 mg PO BID [facility] Last Admin: 09/19/18 09:08 Dose: 40 mg Pramipexole Dihydrochloride (Mirapex -) 0.5 mg PO BID [facility] Last Admin: 09/19/18 09:08 Dose: 0.5 mg Pregabalin (Lyrica -) 50 mg PO TID [facility] Last Admin: 09/19/18 06:29 Dose: 50 mg 77 year old woman with hx of bladder cancer s/p resection with ileual conduit, hypertension, hx of SBO, IDDM who presented from home with complaints of diarrhea and weakness and found to have NATASHA. #NATASHA on CKD in setting of volume depletion +/- renal hypoprofusion from ERENDIRA + Diuretics #Non-anion gap metabolic acidosis from GI losses #Hypokalemia #CKD #Bladder Ca with ileual conduit #Diarrhea Baseline Cr ~1.5 Renal function now improved to near baseline can discontinue IVF if pt tolerating oral diet supplement K continue Abx as per ID Thank you Stevan Maya DO
[2018-09-19] MEDS ORDERED: POTASSIUM CHLORIDE TABS 20 MEQ TABLET.ER (FP) PO ONE (13:26)
--- NOTE | 2018-09-19 14:32 | DS ---
Physical Exam: SUBJECTIVE: Patient seen and examined at bedside. No acute events overnight. OBJECTIVE: Vital Signs Period Temp Pulse Resp BP Sys/Adorno Pulse Ox Last 24 Hr 97.7 F-98.8 F 75-76 18-20 120-139/54-68 96 PHYSICAL EXAM GENERAL: AAOx3. NAD. Resting comfortably in bed. HEENT: AT/NC. EOMI. Dry mucus membranes. NORMA. NECK: Supple. Normal ROM. LUNGS: CTA B/L. No wheezes/crackles noted. HEART: Decreased heart sounds due to body habitus. RRR. Normal S1, S2. No murmurs noted. ABDOMEN: Soft, NT/ND. Ileostomy bag in place draining clear yellow urine. MUSCULOSKELETAL: Normal range of motion at all joints. No bony deformities or tenderness. No CVA tenderness. EXTREMITIES: 2+ dorsalis pedis pulses b/l. No peripheral edema. NEUROLOGICAL: Normal speech, facial symmetry noted. Cranial nerves II-XII intact. Normal speech. 5/5 muscle strength in upper b/l extremities. 4/5 muscle strength LLE. 3/5 muscle strength due to pain. B/l sensation intact. SKIN: Warm, dry, normal turgor, no rashes or lesions noted, normal capillary refill. LABS Laboratory Results - last 24 hr 09/17/18 09/18/18 09/18/18 13:00 16:44 21:12 WBC RBC Hgb Hct MCV MCH MCHC RDW Plt Count MPV Sodium Potassium Chloride Carbon Dioxide Anion Gap BUN Creatinine Creat Clearance w eGFR POC Glucometer 232 234 Random Glucose Calcium Urine Eosinophils None seen 09/19/18 09/19/18 09/19/18 05:45 06:30 06:30 WBC 4.8 RBC 3.19 L Hgb 9.5 L Hct 28.2 L MCV 88.2 MCH 29.7 MCHC 33.6 RDW 15.8 H Plt Count 119 L MPV 9.8 Sodium 144 Potassium 3.2 L Chloride 116 H Carbon Dioxide 24 Anion Gap 3 L BUN 16 Creatinine 1.7 H Creat Clearance w eGFR 29.07 POC Glucometer 184 Random Glucose 179 H Calcium 7.3 L Urine Eosinophils 09/19/18 11:59 WBC RBC Hgb Hct MCV MCH MCHC RDW Plt Count MPV Sodium Potassium Chloride Carbon Dioxide Anion Gap BUN Creatinine Creat Clearance w eGFR POC Glucometer 223 Random Glucose Calcium Urine Eosinophils HOSPITAL COURSE: Date of Admission:09/13/18 IMAGING: * Head CT: No acute IC pathology. * CTAP: s/p radical cystectomy w/ ileal loop RLQ. Mild dilatation of collecting system and ureters proximally. Multiple ventral hernias. NO evid of SBO. Paraumbilical hernia. +diverticulosis w/o acute diverticulitis. No free air/ fluid present. * CXR: Weak inspiratory effort. No acute chest pathology. * Head CT (09/14): No acute IC pathology. * Echo: EF 65-70%, mild annular calcification, mild MR, but no evid of vegetations. 77F w/ pmhx of HTN, DM, Bladder cx s/p post ileal conduit, multiple SBOs, SAH, Parkinson's CKD, DVT s/p IVC filter presented to the hospital for complaints of lethargy and 4 day history of diarrhea found to have severe sepsis 2/2 Salmonella bacteremia. In the ED, she was initially given empiric antibiotic coverage with Flagyl, Levaquin. Blood and stool culture showed +Salmonella, but Cdiff was neg. Urine cx showed +Klebsiella, pneumoniae, Proteus mirabilis, E. coli which all showed sensitivity to Ceftriaxone. Pt was assessed by the infectious disease doctor and IV abx was switched to IV Ceftriaxone. Repeat blood cultures were negative. Head CT was neg and CTAP was neg for SBO and diverticulitis. An echo was done that showed EF = 65-70%, mild mitral annular calcification, mild MR, but no evid of vegetations. Additionally, CMP showed abnormal kidney function with BUN/Cr 38/5.1. Pt was evaluated by nephro and given IV fluid hydration throughout hospital stay. Cr showed marked improvement after oral and IV hydration with repeat Cr 1.7. Throughout hospital stay, pt's symptoms of diarrhea and lethargy improved. She was discharged home with a PICC line and VNS services for continuation of her IV antibiotic treatment. Upon recommendation of ID, pt was instructed to continue IV Ceftriaxone 2gm daily for 7 more days after discharge (total of 14 day IV antibiotic treatment). She was also recommended to continue with PO Ciprofloxacin 400 mg after her IV abx treatment. Additionally, due to the acute change in renal function, she was advised to stop taking Lasix and Lisinopril/HCTZ and to follow up with her PCP for further evaluation when to restart these meds. She was also advised to follow up with ID and nephro as an outpatient. Date of Discharge: 09/19/18 Minutes to complete discharge: 40 Discharge Summary Reason For Visit: ACUTE RENAL FAILURE Condition: Improved - Instructions Diet, Activity, Other Instructions: You were seen in the hospital for complaints of diarrhea and lethargy. You were found to have Salmonella bacteria in your blood according to your blood culture results. As a result, you were seen by the infectious disease doctor and given IV antibiotics. Repeat blood cultures were taken and showed resolution of the bacteremia (bacteria in the blood) so far. Additionally, during your first day of admission, you were found to have abnormal kidney function due to dehydration as a result of your persistent diarrhea. You were given IV fluids as well as advised to drink fluids. Repeat labs showed substantial improvement in your kidney function. Your diarrheal symptoms improved. You are now being discharged home with Visiting Nurse Services and instructions to continue your IV antibiotics. Prior to discharge, a peripherally-inserted central catheter line (PICC line) was placed. Your nurse will use this IV line to administer your IV antibiotics. MEDICATION INSTRUCTIONS Please STOP taking Lasix and Lisinopril/HCTZ for now. You will need follow up with your city auditor Dr. Maya, as to when to start these medications again. Please continue to take Ceftriaxone 2gm IV through your PICC line once a day for a total of 14 days. You finished day 7 today. You may continue your next dose tomorrow. Your last dose of IV Ceftriaxone will be on September 26, 2018. After you finish your full IV antibiotic course, you will need to continue taking oral antibiotic. The infectious disease doctor recommends that you take Ciprofloxacin 400 mg please follow up with infectious disease doctor or your PCP within a week period. REFERRALS Please follow up with your primary care physician within 1 week. Please follow up with your city auditor, Dr. Maya within 1 week. Please follow up with your infectious disease doctor, Dr. Fulton. If you experience worsening diarrhea, fever/chills, chest pain, shortness of breath, abdominal pain, mental status changes, or other associated symptoms please make an appointment to see your primary care physician or proceed to your nearest emergency room immediately. Referrals: Xochitl Fulton MD [Staff Physician] - 1 Week Stevan Maya MD [Staff Physician] - 1 Week Disposition: VNS/HOME HEALTH CARE - Home Medications Comprehensive Discharge Medication List: Ambulatory Orders Insulin NPL/Insulin Lispro [Humalog Mix 75-25 Pen] 30 unit SQ AM 05/04/13 Insulin Lispro Protamin/Lispro [Humalog Mix 75-25 Vial] 27 unit SQ HS 12/22/16 Multivitamins [Multivit ([facility] Formulary)] 1 mg PO DAILY 05/08/17 Omeprazole 40 mg PO BID 05/08/17 Pregabalin [Lyrica -] 50 mg PO TID 05/08/17 Pramipexole Dihydrochloride [Mirapex -] 0.5 mg PO BID 03/14/18 Calcium Carbonate/Vitamin D3 [Calcium 600 + Vit D 400 Softgl] 600 mg PO TID Carbidopa/Levodopa [Carbidopa-Levodopa 25-100 Tab] 0.5 each PO TID 09/13/18 Diclofenac Sodium [Voltaren] 4 gm TP BID PRN 09/13/18 Ceftriaxone [Rocephin 2Gm Ivpb (Pre-Docked)] 2 gm IVPB DAILY #7 vial 09/19/18 This patient is new to me today: No Emergency Visit: Yes ED Registration Date: 09/13/18 Care time: The patient presented to the Emergency Department on the above date and was hospitalized for further evaluation of their emergent condition. Critical Care patient: No - Discharge Referral Referred to [facility] No
[2018-09-19 14:35] VITALS: BP 130/60; PULSE 77; TEMP 98.3
== END 2018-09-19 19:05 | disposition home health service (06) | DRG 872 ==
LOC: JER 01:47 → JERBED 13:11 → J7W 16:45 → J4S 21:18
PROVIDERS: ADMIT Internal Medicine; ATTEND Internal Medicine
PROC: 02H633Z Insertion of Infusion Device into Right Atrium, Percutaneous Approach (ICD-10-PCS; principal; 2018-09-19)
PROC: B548ZZA Ultrasonography of Superior Vena Cava, Guidance (ICD-10-PCS; 2018-09-19)
DX: A02.1 Salmonella sepsis (principal); E87.2 Acidosis; A02.0 Salmonella enteritis; N17.9 Acute kidney failure, unspecified; R65.20 Severe sepsis without septic shock; Z85.51 Personal history of malignant neoplasm of bladder; Z79.4 Long term (current) use of insulin; I12.9 Hypertensive chronic kidney disease with stage 1 through stage 4 chronic kidney disease, or unspecified chronic kidney disease; E11.22 Type 2 diabetes mellitus with diabetic chronic kidney disease; N18.9 Chronic kidney disease, unspecified; G20 Parkinson's disease; I45.10 Unspecified right bundle-branch block; Z86.718 Personal history of other venous thrombosis and embolism; R60.9 Edema, unspecified; E86.9 Volume depletion, unspecified; I95.9 Hypotension, unspecified; E87.6 Hypokalemia; E66.9 Obesity, unspecified; R07.89 Other chest pain
CPT/HCPCS: 36415; 36558; 36600; 70450-TC; 71045-TC-FY; 74176-TC; 77001-TC-FY; 80048; 80053; 81003; 81015; 82272; 82550; 82570; 82803; 82962; 83605; 83690; 83735; 84100; 84156; 84300; 84484; 84540; 85025; 85027; 85651; 86140; 86850; 86900; 86901; 87040; 87045; 87046; 87086; 87186; 87205; 87324; 87449; 87804; 93005; 93010; 93306-TC; 97116-GP; 97161-GP; 99283-25; C1751; J1644; J7030; Q9967

== ENCOUNTER → 2018-10-02 | Day surgery (SDC) | payer OTHER | END | disposition home or self-care (01) | LOC: JRADIR 10:09 | PROVIDERS: ATTEND Internal Medicine Infectious Disease | PROC: 05PY03Z Removal of Infusion Device from Upper Vein, Open Approach (ICD-10-PCS; principal; 2018-10-02) | DX: Z45.2 Encounter for adjustment and management of vascular access device (principal) | CPT/HCPCS: 36589 ==

== ENCOUNTER 2018-11-16 19:13 | Observation (INO) | payer OTHER ==
[2018-11-16 20:38] LABS: BASO % 0.8 % (0-2.0); EOS % 1.9 % (0-4.5); HEMATOCRIT 32.5 % (32.4-45.2); HEMOGLOBIN 10.3 GM/dL (10.7-15.3); LYMPH % 24.1 % (8-40); MCH 28.5 pg (25.7-33.7); MCHC 31.7 g/dl (32.0-36.0); MEAN CELL VOLUME 89.8 fl (80-96); MEAN PLT VOLUME 9.8 fl (7.5-11.1); MONO % 11.5 % (3.8-10.2); NEUT % 61.7 % (42.8-82.8); PLATELET COUNT 144 K/MM3 (134-434); RBC 3.62 M/mm3 (3.60-5.2); RDW 16.8 % (11.6-15.6); WHITE BLOOD COUNT 4.1 K/mm3 (4.0-10.0)
[2018-11-16] MEDS ORDERED: ASPIRIN 81 MG CHEWABLE TABLETS PO ONE (20:48)
[2018-11-16 21:13] LABS: ALK PHOS 178 U/L (45-117); BILIRUBIN,TOTAL 0.7 mg/dL (0.2-1); BLOOD UREA NITROGEN 18 mg/dL (7-18); CALCIUM 8.1 mg/dL (8.5-10.1); CHLORIDE 109 mmol/L (98-107); CO2 25 mmol/L (21-32); CREATININE 1.7 mg/dL (0.55-1.3); GLUCOSE,RANDOM 89 mg/dL (74-106); SGPT/ALT 15 U/L (13-61); SODIUM 142 mmol/L (136-145); TOT PROT 6.7 g/dl (6.4-8.2)
[2018-11-16 21:14] LABS: ANION GAP 7 MMOL/L (8-16); POTASSIUM 5.6 mmol/L (3.5-5.1); SGOT/AST 28 U/L (15-37)
--- NOTE | 2018-11-16 21:31 | PDOC ---
History of Present Illness - General History Source: Patient, Family Exam Limitations: No Limitations - History of Present Illness Initial Comments: 11/16/18 21:33 The patient is a 77 year old female with HTN, DM, Bladder cx s/p post ileal conduit, multiple SBOs, SAH, Parkinson's CKD, DVT s/p IVC filter presents to the emergency department with chest pain. The patient presents with L. sided chest pain that radiates to the L. arm and below the breast. Per daughter at bedside, the patient was fine in the morning. The patient reports associated symptoms of L. leg soreness. Denies fever or chills. Allergies: Latex PCP: Sherley Sagastume, home service. <Isabel Yeung - Last Filed: 11/16/18 22:22> <Shama Collins - Last Filed: 11/17/18 05:07> - General Chief Complaint: Chest Pain Stated Complaint: PAIN Time Seen by Provider: 11/16/18 19:40 Past History <Isabel Yeung - Last Filed: 11/16/18 22:22> - Past Medical History Anemia: No Asthma: No Cancer: Yes (BLADDER) Cardiac Disorders: No CVA: Yes (2017, SAH) COPD: No CHF: No Dementia: No Diabetes: Yes GI Disorders: Yes (GERD, SBO's) Disorders: Yes (ileal conduit) HTN: Yes Hypercholesterolemia: No Liver Disease: No Seizures: No Thyroid Disease: No - Surgical History Abdominal Surgery: Yes Appendectomy: No Cardiac Surgery: No Cholecystectomy: Yes Lung Surgery: No Neurologic Surgery: No Orthopedic Surgery: Yes (R KNEE REPLACEMENT w/ revisions) - Suicide/Smoking/Psychosocial Hx Smoking Status: No Smoking History: Never smoked Have you smoked in the past 12 months: No Number of Cigarettes Smoked Daily: 0 Information on smoking cessation initiated: No Hx Alcohol Use: No Drug/Substance Use Hx: No Substance Use Type: None Hx Substance Use Treatment: No <Shama Collins - Last Filed: 11/17/18 05:07> - Past Medical History Allergies/Adverse Reactions: Allergies Allergy/AdvReac Type Severity Reaction Status Date / Time latex Allergy Verified 11/16/18 19:27 Home Medications: Ambulatory Orders Insulin NPL/Insulin Lispro [Humalog Mix 75-25 Pen] 30 unit SQ AM 05/04/13 Insulin Lispro Protamin/Lispro [Humalog Mix 75-25 Vial] 27 unit SQ HS 12/22/16 Multivitamins [Multivit ([facility] Formulary)] 1 mg PO DAILY 05/08/17 Omeprazole 40 mg PO BID 05/08/17 Pregabalin [Lyrica -] 50 mg PO TID 05/08/17 Pramipexole Dihydrochloride [Mirapex -] 0.5 mg PO BID 03/14/18 Calcium Carbonate/Vitamin D3 [Calcium 600 + Vit D 400 Softgl] 600 mg PO TID Carbidopa/Levodopa [Carbidopa-Levodopa 25-100 Tab] 0.5 each PO TID 09/13/18 Brimonidine Tartrate/Timolol [Combigan Eye Drops] 5 ml OU BID 11/17/18 Furosemide [Lasix -] 40 mg PO DAILY 11/17/18 Lisinopril/Hydrochlorothiazide [Lisinopril-Hctz 20-12.5 mg Tab] 1 each PO DAILY 11/17/18 Loperamide HCl [Loperamide] 2 mg PO ASDIR PRN 11/17/18 Review of Systems - Review of Systems Able to Perform ROS?: Yes Comments:: 11/16/18 21:35 General: No fevers or chills, no weakness, no weight loss HEENT: No change in vision. No sore throat,. No ear pain CardioVascular: +chest pain No shortness of breath Respiratory:No cough, or wheezing. Gastrointestinal: no nausea, vomiting, diarrhea or constipation, No rectal bleeding Genitourinary: No dysuria, hematuria, or frequency Musculoskeletal: No joint or muscle pain or swelling Neurologic: No headache, vertigo, dizziness or loss of consciousness Psychiatric: nor depression Skin: No rashes or easy bruising Endocrine: no increased thirst or abnormal weight change Allergic: no skin or latex allergy All other systems reviewed and normal <Isabel Yeung - Last Filed: 11/16/18 22:22> *Physical Exam - Vital Signs Last Vital Signs Temp Pulse Resp BP Pulse Ox 97.9 F 82 18 150/60 96 11/16/18 19:27 11/16/18 19:27 11/16/18 19:27 11/16/18 19:27 11/16/18 19:27 - Physical Exam Comments: 11/16/18 21:34 General: Afebril, Well-nourished well-developed individual, no acute distress HEENT: Throat: Normal, tonsils normal, no erythema or exudate Neck: Supple, no meningeal signs, no lymphadenopathy Eyes::Pupils equal reactive and round, extraocular motion intact Chest: Nontender to palpation Cardiac: S1-S2 normal, regular rate and rhythm, no murmurs rubs or gallops Respiratory: Lungs clear to auscultation bilateral Abdomen: Soft, nondistended. nontender to palpation diffusely Extremities: old scar to the right knee (s/p x3 knee surgery). No pitting edema. Warm, dry, no cyanosis, clubbing, or edema Skin: No rashes Neuro: Alert and oriented x3, nonfocal exam, grossly intact. <Isabel Yeung - Last Filed: 11/16/18 22:22> - Vital Signs Last Vital Signs Temp Pulse Resp BP Pulse Ox 97.9 F 82 18 150/60 96 11/16/18 19:27 11/16/18 19:27 11/16/18 19:27 11/16/18 19:27 11/16/18 19:27 <Shama Collins - Last Filed: 11/17/18 05:07> Heart Score/ECG Review - ECG Intrepretation Rhythm: Regular Rhythm - Riddleton Riddleton: Normal - P and IN Prominent R with upright T in V1 (true posterior UT): No Delta Wave(s) Present: No WPW: No - QRS Widened: RBBB Poor R Wave Progression: No Q Wave Present: No - ST and T Early Repolarization: No Non Specific ST-T Wave changes: No Flattened T Waves: No Prolonged Q-T Interval: No - ECG Impressions Normal ECG: Yes Comment:: 11/17/18 05:07 Pt has an old RBBB <Shama Collins - Last Filed: 11/17/18 05:07> ED Treatment Course - LABORATORY CBC & Chemistry Diagram: 11/16/18 20:27 11/16/18 20:27 - ADDITIONAL ORDERS Additional order review: Laboratory Results 11/16/18 11/16/18 20:27 20:27 Sodium 142 Potassium 5.6 H Chloride 109 H Carbon Dioxide 25 Anion Gap 7 L BUN 18 Creatinine 1.7 H Creat Clearance w eGFR 29.07 Random Glucose 89 Calcium 8.1 L Total Bilirubin 0.7 AST 28 ALT 15 Alkaline Phosphatase 178 H Creatine Kinase 99 Troponin I 0.07 H Total Protein 6.7 Albumin 3.0 L 11/16/18 20:27 RBC 3.62 MCV 89.8 MCHC 31.7 L RDW 16.8 H MPV 9.8 Neutrophils % 61.7 Lymphocytes % 24.1 D Monocytes % 11.5 H Eosinophils % 1.9 Basophils % 0.8 D <Isabel Yeung - Last Filed: 11/16/18 22:22> - LABORATORY CBC & Chemistry Diagram: 11/16/18 20:27 11/16/18 20:27 - ADDITIONAL ORDERS Additional order review: Laboratory Results 11/16/18 11/16/18 20:27 20:27 Sodium 142 Potassium 5.6 H Chloride 109 H Carbon Dioxide 25 Anion Gap 7 L BUN 18 Creatinine 1.7 H Creat Clearance w eGFR 29.07 Random Glucose 89 Calcium 8.1 L Total Bilirubin 0.7 AST 28 ALT 15 Alkaline Phosphatase 178 H Creatine Kinase 99 Troponin I 0.07 H Total Protein 6.7 Albumin 3.0 L 11/16/18 20:27 RBC 3.62 MCV 89.8 MCHC 31.7 L RDW 16.8 H MPV 9.8 Neutrophils % 61.7 Lymphocytes % 24.1 D Monocytes % 11.5 H Eosinophils % 1.9 Basophils % 0.8 D - RADIOLOGY Radiology Studies Ordered: Category Date Time Status CHEST PA & LAT [RAD] Stat Radiology 11/16/18 19:41 Ordered <Shama Collins - Last Filed: 11/17/18 05:07> Medical Decision Making - Medical Decision Making 11/16/18 21:49 Pt has a trop of 0.7 with a CPK of 99. She tells me that in the last 2 years she had a small intracranial bleed. As a result I will give here baby asa only and trend her cardiac enzymes, and NOT heparinize her at this time. Pt is feeling a little better. 11/17/18 05:05 2nd cardiac enzyme is going down. <Shama Collins - Last Filed: 11/17/18 05:07> *DC/Admit/Observation/Transfer - Attestations Scribe Attestion: 11/16/18 21:36 Documentation prepared by Isabel Yeung, acting as medical reimbursement specialist for Shama Collins MD. <Isabel Yeung - Last Filed: 11/16/18 22:22> - Discharge Dispostion Decision to Admit order: Yes <Shama Collins - Last Filed: 11/17/18 05:07> Diagnosis at time of Disposition: Chest pain, Elevated troponin - Discharge Dispostion Condition at time of disposition: Guarded
[2018-11-16] MEDS ORDERED: HEPARIN NA (PORCINE) 5,000 UNITS/ML 1ML VIAL IVPUSH PRN ×2 (21:33)
[2018-11-16] MEDS ORDERED: ASPIRIN 81 MG CHEWABLE TABLETS ONE (21:37)
[2018-11-16] MEDS ORDERED: HEPARIN SOD,PORK IN 0.45% NACL 25,000 UNITS/500 ML INFUS.BAG IVPB SCH (21:45)
[2018-11-16] MEDS ORDERED: SODIUM POLYSTYRENE SULFONATE 15 GM/60 ML BOTTLE PO ONE (21:51)
[2018-11-16] MEDS ORDERED: NITROGLYCERIN SUBLINGUAL 1/150 0.4 MG TAB SL PRN (23:15)
--- NOTE | 2018-11-16 23:19 | HP ---
CHIEF COMPLAINT: Chest pain PCP: [facility] Urology: Dr. Catalina Gomez HISTORY OF PRESENT ILLNESS: 77yo F with h/o HTN, DM, Bladder Ca s/p conduit, SAH (2017), DVT s/p IVC filter placement, CKD who presents today for L anterior severe sharp chest pain while sitting watching television (roughly 5:30pm). Pt reports during this episode her pain radiated down her L arm and she had associated shortness of breath and diaphoresis. She has never felt this before and there was no correlation with any remitting or exacerbating factors. Pt's pain lasted about 4ish hours and started to subside during her arrival at the ED. Pt reports she has never had a prior cath or NM and her last stress test was performed in 2006 with her Bladder Ca procedure (which was reportedly negative at the time). Pt has a strong family history of cardiac disease with the most notable being her mother who is (72yo) 2/2 to severe NM. Currently pt has minimal chest pain and denies any fever/chills, lightheadedness, shortness of breath, palpitations, jaw claudication, parasthesias, weakness, abdominal pain, dysuria , polyuria. Of note pt reports having chronic leg edema which is at baseline for her. In addition pt reports having chronic kidney dysfunction however does not know her usual creatinine number. She has never been dialyzed in the past and she usually follows with providers in [place]. Recent Travel: Denies PAST MEDICAL HISTORY: HTN DM Bladder Ca s/p ileal conduit SAH (2017; minor memory deficits remain) DVT s/p IVC filter placement CKD (never dialyzed) PAST SURGICAL HISTORY: R knee surgery x3 cholecystectomy bladder resection s/p post-ileal conduit IVC filter placement Social History: Smoking: Denies Alcohol: Denies Drugs: Denies Independent with ADLs; uses cane for ambulation due to knee surgeries Family History: Mother - - NM Father - HTN Allergies latex Allergy (Verified 11/16/18 19:27) HOME MEDICATIONS: Home Medications Medication Instructions Recorded Insulin NPL/Insulin Lispro 30 unit SQ AM 05/04/13 [Humalog Mix 75-25 Pen] Insulin Lispro Protamin/Lispro 27 unit SQ HS 12/22/16 [Humalog Mix 75-25 Vial] Multivitamins [Multivit ([facility] 1 mg PO DAILY 05/08/17 Formulary)] Omeprazole 40 mg PO BID 05/08/17 Pregabalin [Lyrica -] 50 mg PO TID 05/08/17 Pramipexole Dihydrochloride 0.5 mg PO BID 03/14/18 [Mirapex -] Calcium Carbonate/Vitamin D3 600 mg PO TID 03/15/18 [Calcium 600 + Vit D 400 Softgl] Carbidopa/Levodopa 0.5 each PO TID 09/13/18 [Carbidopa-Levodopa 25-100 Tab] Diclofenac Sodium [Voltaren] 4 gm TP BID PRN 09/13/18 Ceftriaxone [Rocephin 2Gm Ivpb 2 gm IVPB DAILY #7 vial 09/19/18 (Pre-Docked)] REVIEW OF SYSTEMS As per HPI PHYSICAL EXAMINATION Vital Signs - 24 hr 11/16/18 11/16/18 19:27 22:00 Temperature 97.9 F Pulse Rate 82 Respiratory 18 Rate Blood Pressure 150/60 O2 Sat by Pulse 96 99 Oximetry (%) GENERAL: NAD, awake, alert, and fully oriented, nondiaphoretic HEENT: Nc/AT, JEZ, MMM NECK: No JVD, no carotid bruits LUNGS: CTA bilaterally. No wheezes, and no crackles. No accessory muscle use. 98 % on 2LNC; 96-98% on RA HEART: RRR, normal S1 and S2 with 2/6 systolic murmur heard at the apex w/o radiation to axilla or carotids. No chest pain with torso palpation ABDOMEN: Soft, NT/ND, normoactive bowel sounds, no guarding EXTREMITIES: 2+ DP pulses, warm, well-perfused. Calf tenderness b/l with palpation (baseline per pt). 1+ pitting edema to mid-leg (baseline per pt) NEUROLOGICAL: Cook Ship II-XII intact. Facial asymmetry at rest with normal smile ( pt at baseline according to daughter). Strength 5/5 throughout. Sensation intact throughout. Normal speech. Gait not observed PSYCHIATRIC: Cooperative. Good eye contact. Appropriate mood and affect. SKIN: Warm, dry, no rashes or lesions noted Laboratory Results 11/16/18 11/16/18 11/16/18 20:27 20:27 20:27 WBC 4.1 RBC 3.62 Hgb 10.3 L Hct 32.5 D MCV 89.8 MCH 28.5 MCHC 31.7 L RDW 16.8 H Plt Count 144 D MPV 9.8 Absolute Neuts (auto) 2.6 Neutrophils % 61.7 Lymphocytes % 24.1 D Monocytes % 11.5 H Eosinophils % 1.9 Basophils % 0.8 D Nucleated RBC % 0 Sodium 142 Potassium 5.6 H Chloride 109 H Carbon Dioxide 25 Anion Gap 7 L BUN 18 Creatinine 1.7 H Creat Clearance w eGFR 29.07 Random Glucose 89 Calcium 8.1 L Total Bilirubin 0.7 AST 28 ALT 15 Alkaline Phosphatase 178 H Creatine Kinase 99 Troponin I 0.07 H Total Protein 6.7 Albumin 3.0 L ASSESSMENT/PLAN: Tropinemia R/o ACS Hyperkalemia Normocytic Anemia CKD HTN NIDDM Bladder Ca s/p Ileal conduit H/o SAH Given pt's history will place on cardiac monitoring for suspicion of ACS Trend troponins/cardiac profile q6h Cardiology consulted ([address] Canales) ASA 162mg given in ED; will continue with 81mg daily --Monitor for S&S for bleeding; would not AC or further AP therapy due to SAH in past 2 years Iron studies, A1c and Lipid panel in AM Chest XR to be done Echocardiogram ordered (last in 09/17/18 with LVEF 65-70%) due to acute event SL Nitrostat 0.4mg PRN for severe chest pain if BP allows Holding Lisinopril combo pill in lieu of hyperkalemia Restart HCTZ 12.5mg qdaily for BP control BGM ACHS Home Humalog mixes nonformulary; will place on ISS and likely will need long- acting adjustment in future Restart home dose Lyrica and Mirapex doses FEN: Fluids: None indicated Electrolyte abnormalities: Hyperkalemia (mild; kayexalate 15gm given in ED) Nutrition: Sodium/diabetic/renal diet PPX: DVT - SCD's GI - Not indicated GOC: Discussion with daughter and pt at bedside. No de-escalating advanced directives at this point. Daughter would like to be notified of any procedure/ invasive treatment options so the two can discuss together (pt approved). Daughter's number (Christiane Banks) - Dispo: Telemetry observation Case discussed with Dr. Becca Willett, DO - IM PGy-2 Visit type - Emergency Visit Emergency Visit: Yes ED Registration Date: 11/16/18 Care time: The patient presented to the Emergency Department on the above date and was hospitalized for further evaluation of their emergent condition. - New Patient This patient is new to me today: Yes Date on this admission: 11/17/18 - Critical Care Critical Care patient: No
[2018-11-17] MEDS ORDERED: SODIUM POLYSTYRENE SULFONATE 15 GM/60 ML BOTTLE ONE (00:01)
--- NOTE | 2018-11-17 00:11 | PN ---
Teaching Attending Note Name of Resident: Valentin Willett ATTENDING PHYSICIAN STATEMENT I saw and evaluated the patient. I reviewed the resident's note and discussed the case with the resident. I agree with the resident's findings and plan as documented. SUBJECTIVE: Patient is a 77 year old woman with HTN, NIDDM, Bladder cancer s/p post ileal conduit, multiple SBOs, SAH, Parkinson's, CKD and DVT s/p IVC filter who presents to the emergency department with chest pain. The patient presents with L. sided chest pain that radiates to the L. arm and below the breast. Per daughter at bedside, the patient was fine in the morning. The patient reports associated symptoms of L. leg soreness. Denies fever, chills, headache, dizziness, photophobia, dysuria, hematuria, vomiting or diarrhea. OBJECTIVE: Alert Vital Signs Period Temp Pulse Resp BP Sys/Adorno Pulse Ox Last 24 Hr 97.9 F 82 18 150/60 96-99 HEENT: No Jaundice, eye redness or discharge, PERRLA, EOMI. Chronic facial asymmetry, Normocephalic, atraumatic. External ears are normal and hearing is grossly intact. No nasal discharge. Neck: Supple, nontender. No palpable adenopathy or thyromegaly. No JVD Chest: Good effort. Clear to auscultation and percussion. Heart: Regular. No S3, rub or murmur Abdomen: Not distended, soft, nontender and no HSM. No rebound or guarding. Normal bowel sounds. Ext: Peripheral pulses intact. No leg edema. Skin: Warm and dry. No petechiae, rash or ecchymosis. Neuro: Alert. Oriented x3. CN 2-12 grossly intact. Sensation grossly intact in all four extremities and DTR are symmetric. Psych: Appropriate mood and affect. Good insight. Current Medications Generic Name Dose Route Start Last Admin Trade Name Freq PRN Reason Stop Dose Admin Aspirin 81 mg 11/17/18 10:00 Ecotrin - PO DAILY GLORIA Insulin Aspart 1 vial 11/17/18 07:00 Novolog Vial Sliding Scale - SQ ACHS [facility] Protocol Nitroglycerin 0.4 mg 11/16/18 23:15 Nitrostat - SL Q5M PRN FOR CHEST PAIN Home Medications Medication Instructions Recorded Insulin NPL/Insulin Lispro 30 unit SQ AM 05/04/13 [Humalog Mix 75-25 Pen] Insulin Lispro Protamin/Lispro 27 unit SQ HS 12/22/16 [Humalog Mix 75-25 Vial] Multivitamins [Multivit ([facility] 1 mg PO DAILY 05/08/17 Formulary)] Omeprazole 40 mg PO BID 05/08/17 Pregabalin [Lyrica -] 50 mg PO TID 05/08/17 Pramipexole Dihydrochloride 0.5 mg PO BID 03/14/18 [Mirapex -] Calcium Carbonate/Vitamin D3 600 mg PO TID 03/15/18 [Calcium 600 + Vit D 400 Softgl] Carbidopa/Levodopa 0.5 each PO TID 09/13/18 [Carbidopa-Levodopa 25-100 Tab] Diclofenac Sodium [Voltaren] 4 gm TP BID PRN 09/13/18 Ceftriaxone [Rocephin 2Gm Ivpb 2 gm IVPB DAILY #7 vial 09/19/18 (Pre-Docked)] Abnormal Lab Results 11/16/18 11/16/18 11/16/18 20:27 20:27 20:27 Hgb 10.3 L MCHC 31.7 L RDW 16.8 H Monocytes % 11.5 H Potassium 5.6 H Chloride 109 H Anion Gap 7 L Creatinine 1.7 H Calcium 8.1 L Alkaline Phosphatase 178 H Troponin I 0.07 H Albumin 3.0 L ASSESSMENT AND PLAN: 1. Chest pain - Patient has risk factors for CAD. EKG shows NSR with no acute ST -T wave changes and troponin is elevated (0.07). CXR is pending. Patient got aspirin in the ER. Will admit to telemetry, trend troponin and rule out ACS. Get ECHO, fasting lipids and consult cardiology. 2. Hypoalbuminemia - Possibly due to combined effects of malnutrition and inflammation associated with comorbid chronic conditions. Will ensure adequate dietary protein intake and also consult front office associate. 3. DM For now, we will hold the home diabetes drugs and implement sliding scale insulin regimen. Provide comprehensive diabetes care with patient teaching and counseling about the importance of adherence to prescribed diabetes regimen, euglycemia, eye care and foot care. 4. CKD - Cause unclear. Will consult nephrology and avoid nephrotoxic agents such as NSAIDS, aminoglycosides, contrast dyes and certain Alternative medicine products. 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 5. Anemia - Likely partly due to CKD. Do basic anemia work up including serial stool guaiacs, reticulocyte count and iron studies. 6. Obesity Counseled on the risks associated with obesity. Will provide patient all the necessary assistance, counseling and positive reinforcement to facilitate weight loss. Consult front office associate. 7. Hypertension - Restart outpatient antihypertensive drugs and revise regimen to ensure smooth [id number] good BP control. Nonpharmacologic measures to control hypertension like weight loss, salt restriction and exercise discussed. 8. DVT prophylaxis - Heparin 5000u sq tid. 9. Advance directives - Full code
[2018-11-17 06:16] LABS: HEMATOCRIT 32.1 % (32.4-45.2); MCH 27.7 pg (25.7-33.7); MCHC 31.3 g/dl (32.0-36.0); MEAN CELL VOLUME 88.5 fl (80-96); MEAN PLT VOLUME 9.2 fl (7.5-11.1); PLATELET COUNT 133 K/MM3 (134-434); RBC 3.62 M/mm3 (3.60-5.2); RDW 16.1 % (11.6-15.6); WHITE BLOOD COUNT 3.7 K/mm3 (4.0-10.0)
[2018-11-17 06:41] LABS: ANION GAP 6 MMOL/L (8-16); BLOOD UREA NITROGEN 17 mg/dL (7-18); CALCIUM 7.9 mg/dL (8.5-10.1); CHLORIDE 111 mmol/L (98-107); CO2 26 mmol/L (21-32); CREATININE 1.7 mg/dL (0.55-1.3); GLUCOSE,RANDOM 128 mg/dL (74-106); MAGNESIUM 1.8 mg/dL (1.8-2.4); PHOSPHOROUS 4.3 mg/dL (2.5-4.9); POTASSIUM 4.7 mmol/L (3.5-5.1); SODIUM 144 mmol/L (136-145)
[2018-11-17] MEDS ORDERED: PREGABALIN 50 MG CAPSULE ONE ×2 (06:42→14:17)
[2018-11-17] MEDS: PREGABALIN 50 MG CAPSULE PO SCH ×3 (07:01→21:34)
[2018-11-17] MEDS: INSULIN SLIDING SCALE (NOVOLOG) 1 VIAL SQ SCH ×4 (08:00→21:35)
[2018-11-17] MEDS: PANTOPRAZOLE 40 MG TABLET (FP) PO SCH ×2 (12:59→21:34)
[2018-11-17] MEDS: ASPIRIN COATED 81 MG TABLET.EC PO SCH (12:59)
[2018-11-17] MEDS: HYDROCHLOROTHIAZIDE 12.5 MG CAPSULE (FP) PO SCH (12:59)
[2018-11-17] MEDS: PRAMIPEXOLE DIHYDROCHLORIDE 0.5 MG TABLET PO SCH ×2 (12:59→21:34)
[2018-11-17] MEDS ORDERED: INSULIN (NOVOLOG) ASPART 100 UNITS/ML 10ML VIAL ONE ×2 (13:25→13:26)
--- NOTE | 2018-11-17 13:27 | CON.CARD ---
Cardiology Consult (text) - Consultation Consultation Note: Chief Complaint: cp History of Present Illness: 77 yo female here with cp. Had been feeling well until yesterday when sitting and developed sharp pain in left chest and left arm. Mild sob as well. Lasted all day and now improving. No dizzy loc pnd orthopnea. PMH: Bladder CA s/p Radical Cystectomy and urostomy 9 years ago, DVT s/p IVC Filter and on Coumadin, IDDM, HTN, GERD, Osteoarthritis pt denies h/o afib, CVA, CAD - Alcohol/Substance Use Hx Alcohol Use: No - Smoking History Smoking history: Never smoked Have you smoked in the past 12 months: No Aproximately how many cigarettes per day: 0 Home Medications - Allergies Allergies/Adverse Reactions: Allergies Allergy/AdvReac Type Severity Reaction Status Date / Time latex Allergy Verified 11/16/18 19:27 - Home Medications Ambulatory Orders Insulin NPL/Insulin Lispro [Humalog Mix 75-25 Pen] 30 unit SQ AM 05/04/13 Insulin Lispro Protamin/Lispro [Humalog Mix 75-25 Vial] 27 unit SQ HS 12/22/16 Multivitamins [Multivit ([facility] Formulary)] 1 mg PO DAILY 05/08/17 Omeprazole 40 mg PO BID 05/08/17 Pregabalin [Lyrica -] 50 mg PO TID 05/08/17 Pramipexole Dihydrochloride [Mirapex -] 0.5 mg PO BID 03/14/18 Calcium Carbonate/Vitamin D3 [Calcium 600 + Vit D 400 Softgl] 600 mg PO TID Carbidopa/Levodopa [Carbidopa-Levodopa 25-100 Tab] 0.5 each PO TID 09/13/18 Brimonidine Tartrate/Timolol [Combigan Eye Drops] 5 ml OU BID 11/17/18 Furosemide [Lasix -] 40 mg PO DAILY 11/17/18 Lisinopril/Hydrochlorothiazide [Lisinopril-Hctz 20-12.5 mg Tab] 1 each PO DAILY 11/17/18 Loperamide HCl [Loperamide] 2 mg PO ASDIR PRN 11/17/18 Family Disease History - Family Disease History Family History: Denies (no cardiomyopathy) Review of Systems - Review of Systems Constitutional: denies: Chills, Fever Eyes: denies: Eye Pain HENT: denies: Nasal Congestion Neck: denies: Stiffness Cardiovascular: denies: Palpitations Respiratory: denies: Orthopnea, PND Gastrointestinal: denies: Diarrhea, Rectal Bleeding Genitourinary: reports: Hematuria. denies: Burning Musculoskeletal: denies: Muscle Pain Integumentary: denies: Rash Neurological: denies: Numbness, Seizure, Syncope Endocrine: denies: Excessive Sweating Hematology/Lymphatic: denies: Excessive Bleeding Vital Signs: Vital Signs Period Temp Pulse Resp BP Sys/Adorno Pulse Ox Last 24 Hr 97.9 F-99.2 F 62-82 18-19 119-150/52-62 96-100 Constitutional: Yes: No Distress, Obese Eyes: No: Sclera Icterus HENT: No: Nasal Congestion Neck: No: Decreased ROM Respiratory: Yes: CTA Bilaterally. No: Accessory Muscle Use, Rales, Wheezes Gastrointestinal: Yes: Normal Bowel Sounds. No: Distention, Hepatomegaly, Palpable Mass, Tenderness Cardiovascular: Yes: Regular Rate and Rhythm (soft heart sounds) JVD: No Carotid Bruit: No PMI: Non-Displaced Heart Sounds: Yes: S1, S2. No: Gallop Murmur: No: Systolic Murmur, Diastolic Murmur Extremities: No: Cool, Cyanosis Edema: No Peripheral Pulses: 2+ Left Carotid, 2+ Right Carotid, 2+ Left Doralis Pedis, 2+ Right Dorsalis Pedis Integumentary: No: Jaundice Neurological: Yes: Alert, Oriented (x3) Psychiatric: No: Agitated Laboratory Last Values WBC 3.7 K/mm3 (4.0-10.0) L 11/17/18 05:50 RBC 3.62 M/mm3 (3.60-5.2) 11/17/18 05:50 Hgb 10.0 GM/dL (10.7-15.3) L 11/17/18 05:50 Hct 32.1 % (32.4-45.2) L 11/17/18 05:50 MCV 88.5 fl (80-96) 11/17/18 05:50 MCH 27.7 pg (25.7-33.7) 11/17/18 05:50 MCHC 31.3 g/dl (32.0-36.0) L 11/17/18 05:50 RDW 16.1 % (11.6-15.6) H 11/17/18 05:50 Plt Count 133 K/MM3 (134-434) L 11/17/18 05:50 MPV 9.2 fl (7.5-11.1) 11/17/18 05:50 Absolute Neuts (auto) 2.6 K/mm3 (1.5-8.0) 11/16/18 20:27 Neutrophils % 61.7 % (42.8-82.8) 11/16/18 20:27 Lymphocytes % 24.1 % (8-40) D 11/16/18 20:27 Monocytes % 11.5 % (3.8-10.2) H 11/16/18 20:27 Eosinophils % 1.9 % (0-4.5) 11/16/18 20:27 Basophils % 0.8 % (0-2.0) D 11/16/18 20:27 Nucleated RBC % 0 % (0-0) 11/16/18 20:27 Sodium 144 mmol/L (136-145) 11/17/18 05:50 Potassium 4.7 mmol/L (3.5-5.1) 11/17/18 05:50 Chloride 111 mmol/L (98-107) H 11/17/18 05:50 Carbon Dioxide 26 mmol/L (21-32) 11/17/18 05:50 Anion Gap 6 MMOL/L (8-16) L 11/17/18 05:50 BUN 17 mg/dL (7-18) 11/17/18 05:50 Creatinine 1.7 mg/dL (0.55-1.3) H 11/17/18 05:50 Creat Clearance w eGFR 29.07 (>60) 11/17/18 05:50 POC Glucometer 181 UNITS (80-120) 11/17/18 13:12 Random Glucose 128 mg/dL (74-106) H 11/17/18 05:50 Hemoglobin A1c % 6.6 % (4.2-6.3) H 11/17/18 05:50 Calcium 7.9 mg/dL (8.5-10.1) L 11/17/18 05:50 Phosphorus 4.3 mg/dL (2.5-4.9) 11/17/18 05:50 Magnesium 1.8 mg/dL (1.8-2.4) 11/17/18 05:50 Ferritin 64.2 ng/ml (8-388) 11/17/18 05:50 Total Bilirubin 0.7 mg/dL (0.2-1) 11/16/18 20:27 AST 28 U/L (15-37) 11/16/18 20:27 ALT 15 U/L (13-61) 11/16/18 20:27 Alkaline Phosphatase 178 U/L (45-117) H 11/16/18 20:27 Creatine Kinase 62 U/L (26-192) 11/17/18 02:48 Troponin I 0.05 ng/ml (0.00-0.05) 11/17/18 05:50 Total Protein 6.7 g/dl (6.4-8.2) 11/16/18 20:27 Albumin 3.0 g/dl (3.4-5.0) L 11/16/18 20:27 Triglycerides 140 mg/dL (0-150) 11/17/18 05:50 Cholesterol 113 mg/dL (50-200) 11/17/18 05:50 Total LDL Cholesterol 56 mg/dL (5-100) 11/17/18 05:50 HDL Cholesterol 44 mg/dL (40-60) 11/17/18 05:50 ekg: NSR, RBBB,no sig change vs prior echo 08/2018: nl lv/rv, mild mr cxr; no sig chf a/p: cp: -no signs acs, trops negx3, ecg w/o ischemic changes -cp improved -given risk factors would check echo and nuclear stress test -monitor on tele HTN: -bp controlled, cont home meds DM: -per primary MD CKD: -currently stable renal fxn
--- NOTE | 2018-11-17 14:56 | PN ---
Physical Exam: SUBJECTIVE: Patient seen and examined, resports chest pain and left arm pain that is worse with touch, and lifting left arm. OBJECTIVE: Vital Signs Period Temp Pulse Resp BP Sys/Adorno Pulse Ox Last 24 Hr 97.9 F-99.2 F 62-82 - 119-150/52-74 96-100 Intake & Output 11/14/18 11/15/18 11/16/18 11/17/18 23:59 23:59 23:59 23:59 Weight 200 lb GENERAL: The patient is awake, alert, and fully oriented, in no acute distress. HEAD: Normal with no signs of trauma. EYES: PERRL, extraocular movements intact, sclera anicteric, conjunctiva clear. No ptosis. ENT: Ears normal, nares patent, oropharynx clear without exudates, moist mucous membranes. NECK: soft, supple LUNGS: limited by habitus, no rales or wheezing HEART: Regular rate and rhythm, S1, S2 without murmur, rub or gallop. ABDOMEN: soft obese, NT Chest: chest wall tenderness over precordium and left lateral region, no swelling or erythema EXTREMITIES: pain with left shoulder elevation (screams on minimal palpation left lateral and anterior chest wall), no obvious swelling PSYCH: Normal mood, normal affect. SKIN: Warm, dry, normal turgor, no rashes or lesions noted Laboratory Results - last 24 hr 11/16/18 11/16/18 11/16/18 20:27 20:27 20:27 WBC 4.1 RBC 3.62 Hgb 10.3 L Hct 32.5 D MCV 89.8 MCH 28.5 MCHC 31.7 L RDW 16.8 H Plt Count 144 D MPV 9.8 Absolute Neuts (auto) 2.6 Neutrophils % 61.7 Lymphocytes % 24.1 D Monocytes % 11.5 H Eosinophils % 1.9 Basophils % 0.8 D Nucleated RBC % 0 Sodium 142 Potassium 5.6 H Chloride 109 H Carbon Dioxide 25 Anion Gap 7 L BUN 18 Creatinine 1.7 H Creat Clearance w eGFR 29.07 POC Glucometer Random Glucose 89 Hemoglobin A1c % Calcium 8.1 L Phosphorus Magnesium Ferritin Total Bilirubin 0.7 AST 28 ALT 15 Alkaline Phosphatase 178 H Creatine Kinase 99 Troponin I 0.07 H Total Protein 6.7 Albumin 3.0 L Triglycerides Cholesterol Total LDL Cholesterol HDL Cholesterol 11/17/18 11/17/18 11/17/18 02:48 05:50 05:50 WBC 3.7 L RBC 3.62 Hgb 10.0 L Hct 32.1 L MCV 88.5 MCH 27.7 MCHC 31.3 L RDW 16.1 H Plt Count 133 L MPV 9.2 Absolute Neuts (auto) Neutrophils % Lymphocytes % Monocytes % Eosinophils % Basophils % Nucleated RBC % Sodium 144 Potassium 4.7 Chloride 111 H Carbon Dioxide 26 Anion Gap 6 L BUN 17 Creatinine 1.7 H Creat Clearance w eGFR 29.07 POC Glucometer Random Glucose 128 H Hemoglobin A1c % Calcium 7.9 L Phosphorus 4.3 Magnesium 1.8 Ferritin Total Bilirubin AST ALT Alkaline Phosphatase Creatine Kinase 62 Troponin I 0.05 0.05 Total Protein Albumin Triglycerides Cholesterol Total LDL Cholesterol HDL Cholesterol 11/17/18 11/17/18 11/17/18 05:50 05:50 13:12 WBC RBC Hgb Hct MCV MCH MCHC RDW Plt Count MPV Absolute Neuts (auto) Neutrophils % Lymphocytes % Monocytes % Eosinophils % Basophils % Nucleated RBC % Sodium Potassium Chloride Carbon Dioxide Anion Gap BUN Creatinine Creat Clearance w eGFR POC Glucometer 181 Random Glucose Hemoglobin A1c % 6.6 H Calcium Phosphorus Magnesium Ferritin 64.2 Total Bilirubin AST ALT Alkaline Phosphatase Creatine Kinase Troponin I Total Protein Albumin Triglycerides 140 Cholesterol 113 Total LDL Cholesterol 56 HDL Cholesterol 44 Active Medications Generic Name Dose Route Start Last Admin Trade Name Freq PRN Reason Stop Dose Admin Aspirin 81 mg 11/17/18 10:00 11/17/18 12:59 Ecotrin - PO 81 mg DAILY GLORIA Administration Baclofen 10 mg 11/17/18 15:00 Lioresal - PO TID GLORIA Carbidopa/Levodopa 0.5 each 11/17/18 14:45 Sinemet 25/100 - PO TID GLORIA Furosemide 40 mg 11/17/18 15:00 Lasix - PO DAILY GLORIA Hydrochlorothiazide 12.5 mg 11/17/18 10:00 11/17/18 12:59 Hctz - PO 12.5 mg DAILY GLORIA Administration Insulin Aspart 1 vial 11/17/18 07:00 11/17/18 13:14 Novolog Vial Sliding Scale - SQ 2 unit ACHS GLORIA Administration Protocol Nitroglycerin 0.4 mg 11/16/18 23:15 Nitrostat - SL Q5M PRN FOR CHEST PAIN Pantoprazole Sodium 40 mg 11/17/18 10:00 11/17/18 12:59 Protonix - PO 40 mg BID GLORIA Administration Pramipexole Dihydrochloride 0.5 mg 11/17/18 10:00 11/17/18 12:59 Mirapex - PO 0.5 mg BID GLORIA Administration Pregabalin 50 mg 11/17/18 06:00 11/17/18 14:14 Lyrica - PO 50 mg TID GLORIA Administration Home Medications Medication Instructions Recorded Insulin NPL/Insulin Lispro 30 unit SQ AM 05/04/13 [Humalog Mix 75-25 Pen] Insulin Lispro Protamin/Lispro 27 unit SQ HS 12/22/16 [Humalog Mix 75-25 Vial] Multivitamins [Multivit ([facility] 1 mg PO DAILY 05/08/17 Formulary)] Omeprazole 40 mg PO BID 05/08/17 Pregabalin [Lyrica -] 50 mg PO TID 05/08/17 Pramipexole Dihydrochloride 0.5 mg PO BID 03/14/18 [Mirapex -] Calcium Carbonate/Vitamin D3 600 mg PO TID 03/15/18 [Calcium 600 + Vit D 400 Softgl] Carbidopa/Levodopa 0.5 each PO TID 09/13/18 [Carbidopa-Levodopa 25-100 Tab] Ascorbate Calcium [Vitamin C] 500 mg PO BID 11/17/18 Baclofen 10 mg PO TID 11/17/18 Brimonidine Tartrate/Timolol 5 ml OU BID 11/17/18 [Combigan Eye Drops] Docusate Sodium 100 mg PO DAILY 11/17/18 Furosemide [Lasix -] 40 mg PO DAILY 11/17/18 Lisinopril/Hydrochlorothiazide 1 each PO DAILY 11/17/18 [Lisinopril-Hctz 10-12.5 mg Tab] CXR results reviewed ASSESSMENT/PLAN: 77 yof HTN, IDDM, Bladder cx s/p post ileal conduit, multiple SBOs, SAH, Parkinson's CKD, DVT s/p IVC filter admitted with atypical chest pain. -Atypical chest pain, given tender to palpation and worse with movements. -Hyperkalemia, ?medication induced -IDDM -HTN -Bladder cancer s/p ileal conduit -SAH 2016 -DVT s/p IVC filter -Multiple SBOs -Parkinson's disease -CKD stage III -h/o Salmonella bacteremia Plan: Telemetry with no events. ACS ruled out. Cardiology input noted. 2D echo/stress test given risk factors. Lipid panel noted, ASA per cardiology. K normalized. Hold ACEi. Low K diet and monitor levels. Continue HCTZ. Resume lasix. Symptoms atypical, trial with lidocaine patch. Further xrays based on clinical course. Hold home insulin, ISS, diabetic diet. Resume per blood sugar readings. Continue pramipaxole. Resume sinemet DVTPPX SCDs Dispo pending above PT eval and CM consult for d/c planning. Plan discussed with patient, all questions answered. Visit type - Emergency Visit Emergency Visit: Yes ED Registration Date: 11/16/18 Care time: The patient presented to the Emergency Department on the above date and was hospitalized for further evaluation of their emergent condition. - New Patient This patient is new to me today: Yes Date on this admission: 11/17/18 - Critical Care Critical Care patient: No - Discharge Referral Referred to [facility] Med P.C.: No
[2018-11-17] MEDS ORDERED: LIDOCAINE 5% TOPICAL PATCH TP ONE (15:15)
[2018-11-17] MEDS: CARBIDOPA/LEVODOPA 25/100 TABLET (FP) PO SCH ×2 (15:57→22:31)
[2018-11-17] MEDS: FUROSEMIDE 40 MG TABLET (FP) PO SCH (15:57)
[2018-11-17] MEDS: BACLOFEN 10 MG TABLET (FP) PO SCH ×2 (15:58→22:31)
[2018-11-17] MEDS ORDERED: PT OWN MED DRAWER 7, Y5N ONE ×3 (16:02→21:37)
[2018-11-17] MEDS: LIDOCAINE PATCH REMOVAL MC SCH (21:35)
[2018-11-18 04:11] LABS: SERUM IRON SATURATION 25 % (15-55); TOTAL IRON BINDING CAPACITY 248 ug/dL (250-450); UIBC 186 ug/dL (118-369)
[2018-11-18] MEDS ORDERED: PT OWN MED DRAWER 7, Y5N ONE ×4 (05:55→21:27)
[2018-11-18] MEDS: CARBIDOPA/LEVODOPA 25/100 TABLET (FP) PO SCH ×3 (06:00→21:27)
[2018-11-18] MEDS: PREGABALIN 50 MG CAPSULE PO SCH ×3 (06:00→21:21)
[2018-11-18] MEDS: INSULIN SLIDING SCALE (NOVOLOG) 1 VIAL SQ SCH ×4 (06:00→21:34)
[2018-11-18] MEDS: BACLOFEN 10 MG TABLET (FP) PO SCH ×3 (06:01→21:21)
[2018-11-18 08:18] LABS: BASO % 0.3 % (0-2.0); EOS % 1.8 % (0-4.5); HEMATOCRIT 32.7 % (32.4-45.2); HEMOGLOBIN 10.2 GM/dL (10.7-15.3); LYMPH % 16.4 % (8-40); MCH 27.9 pg (25.7-33.7); MCHC 31.1 g/dl (32.0-36.0); MEAN CELL VOLUME 89.9 fl (80-96); MEAN PLT VOLUME 9.3 fl (7.5-11.1); MONO % 7.4 % (3.8-10.2); NEUT % 74.1 % (42.8-82.8); PLATELET COUNT 130 K/MM3 (134-434); RBC 3.64 M/mm3 (3.60-5.2); RDW 15.8 % (11.6-15.6); WHITE BLOOD COUNT 4.4 K/mm3 (4.0-10.0)
[2018-11-18 08:41] LABS: ANION GAP 4 MMOL/L (8-16); BLOOD UREA NITROGEN 17 mg/dL (7-18); CALCIUM 8.2 mg/dL (8.5-10.1); CHLORIDE 106 mmol/L (98-107); CO2 29 mmol/L (21-32); CREATININE 1.4 mg/dL (0.55-1.3); GLUCOSE,RANDOM 179 mg/dL (74-106); PHOSPHOROUS 3.7 mg/dL (2.5-4.9); POTASSIUM 4.5 mmol/L (3.5-5.1); SODIUM 140 mmol/L (136-145)
[2018-11-18] MEDS: PANTOPRAZOLE 40 MG TABLET (FP) PO SCH ×2 (09:31→21:21)
[2018-11-18] MEDS: PRAMIPEXOLE DIHYDROCHLORIDE 0.5 MG TABLET PO SCH ×2 (09:31→21:21)
[2018-11-18] MEDS: HYDROCHLOROTHIAZIDE 12.5 MG CAPSULE (FP) PO SCH (09:31)
[2018-11-18] MEDS: FUROSEMIDE 40 MG TABLET (FP) PO SCH (09:31)
[2018-11-18] MEDS: ASPIRIN COATED 81 MG TABLET.EC PO SCH (09:31)
--- NOTE | 2018-11-18 09:44 | PN ---
Physical Exam: SUBJECTIVE: Patient seen and examined, reports some chest pain earlier, substernal/left pressure like transient, denies any pain with left arm movements today. reports more than pressure today rather than sharp. OBJECTIVE: Vital Signs Period Temp Pulse Resp BP Sys/Adorno Pulse Ox Last 24 Hr 97.5 F-98.9 F 59-69 18-18 110-146/53-74 98-99 GENERAL: The patient is awake, alert, and fully oriented, in no acute distress. HEAD: Normal with no signs of trauma. EYES: PERRL, extraocular movements intact, sclera anicteric, conjunctiva clear. No ptosis. ENT: Ears normal, nares patent, oropharynx clear without exudates, moist mucous membranes. NECK: Trachea midline, full range of motion, supple. LUNGS: Breath sounds equal, clear to auscultation bilaterally, no wheezes, no crackles, no accessory muscle use. HEART: Regular rate and rhythm, S1, S2 without murmur, rub or gallop. ABDOMEN: Soft, nontender, nondistended, normoactive bowel sounds, no guarding, no rebound, no hepatosplenomegaly, no masses. EXTREMITIES: 2+ pulses, warm, well-perfused, no edema. NEUROLOGICAL: Cranial nerves II through XII grossly intact. Normal speech, gait not observed. PSYCH: Normal mood, normal affect. SKIN: Warm, dry, normal turgor, no rashes or lesions noted Laboratory Results - last 24 hr 11/17/18 11/17/18 11/17/18 05:50 13:12 16:30 WBC RBC Hgb Hct MCV MCH MCHC RDW Plt Count MPV Absolute Neuts (auto) Neutrophils % Lymphocytes % Monocytes % Eosinophils % Basophils % Nucleated RBC % Sodium Potassium Chloride Carbon Dioxide Anion Gap BUN Creatinine Creat Clearance w eGFR POC Glucometer 181 188 Random Glucose Calcium Phosphorus Magnesium Iron 62 TIBC 248 L Iron Saturation 25 11/17/18 11/18/18 11/18/18 21:32 05:34 07:00 WBC 4.4 RBC 3.64 Hgb 10.2 L Hct 32.7 MCV 89.9 MCH 27.9 MCHC 31.1 L RDW 15.8 H Plt Count 130 L MPV 9.3 Absolute Neuts (auto) 3.3 Neutrophils % 74.1 D Lymphocytes % 16.4 D Monocytes % 7.4 Eosinophils % 1.8 Basophils % 0.3 Nucleated RBC % 0 Sodium Potassium Chloride Carbon Dioxide Anion Gap BUN Creatinine Creat Clearance w eGFR POC Glucometer 119 135 Random Glucose Calcium Phosphorus Magnesium Iron TIBC Iron Saturation 11/18/18 07:00 WBC RBC Hgb Hct MCV MCH MCHC RDW Plt Count MPV Absolute Neuts (auto) Neutrophils % Lymphocytes % Monocytes % Eosinophils % Basophils % Nucleated RBC % Sodium 140 Potassium 4.5 Chloride 106 Carbon Dioxide 29 Anion Gap 4 L BUN 17 Creatinine 1.4 H Creat Clearance w eGFR 36.37 POC Glucometer Random Glucose 179 H Calcium 8.2 L Phosphorus 3.7 Magnesium 2.0 Iron TIBC Iron Saturation Active Medications Generic Name Dose Route Start Last Admin Trade Name Freq PRN Reason Stop Dose Admin Aspirin 81 mg 11/17/18 10:00 11/18/18 09:31 Ecotrin - PO 81 mg DAILY GLORIA Administration Baclofen 10 mg 11/17/18 15:00 11/18/18 06:01 Lioresal - PO 10 mg TID [facility] Administration Carbidopa/Levodopa 0.5 each 11/17/18 14:45 11/18/18 06:00 Sinemet 25/100 - PO 0.5 each TID [facility] Administration Furosemide 40 mg 11/17/18 15:00 11/18/18 09:31 Lasix - PO 40 mg DAILY [facility] Administration Hydrochlorothiazide 12.5 mg 11/17/18 10:00 11/18/18 09:31 Hctz - PO 12.5 mg DAILY [facility] Administration Insulin Aspart 1 vial 11/17/18 07:00 11/18/18 06:00 Novolog Vial Sliding Scale - SQ Not Given ACHS [facility] Protocol Miscellaneous 1 each 11/17/18 22:00 11/17/18 21:35 Lidoderm Patch Removal MC Not Given DAILY@2200 [facility] Nitroglycerin 0.4 mg 11/16/18 23:15 Nitrostat - SL Q5M PRN FOR CHEST PAIN Pantoprazole Sodium 40 mg 11/17/18 10:00 11/18/18 09:31 Protonix - PO 40 mg BID [facility] Administration Pramipexole Dihydrochloride 0.5 mg 11/17/18 10:00 11/18/18 09:31 Mirapex - PO 0.5 mg BID [facility] Administration Pregabalin 50 mg 11/17/18 06:00 11/18/18 06:00 Lyrica - PO 50 mg TID GLORIA Administration ASSESSMENT/PLAN: 77 yof HTN, IDDM, Bladder cx s/p post ileal conduit, multiple SBOs, SAH, Parkinson's CKD, DVT s/p IVC filter admitted with atypical chest pain. -Chest pain, atypical/some typical features -Hyperkalemia, ?medication induced -IDDM -HTN -Bladder cancer s/p ileal conduit -SAH 2017 -DVT s/p IVC filter -Multiple SBOs -Parkinson's disease -CKD stage III -h/o Salmonella bacteremia Plan: Telemetry with no events. ACS ruled out. Cardiology input noted. 2D echo/stress test given risk factors. vague details, today reports transient chest pain with some typical features, currently denies. Lipid panel noted, ASA per cardiology. K normalized. Hold ACEi. Low K diet and monitor levels. Continue HCTZ/lasix. lidocaine patch prn Hold home insulin, ISS, diabetic diet. Resume per blood sugar readings. Continue pramipaxole/sinemet DVTPPX SCDs Dispo pending above PT eval and CM consult for d/c planning. Plan discussed with patient and nursing, all questions answered. Visit type - Emergency Visit Emergency Visit: Yes ED Registration Date: 11/16/18 Care time: The patient presented to the Emergency Department on the above date and was hospitalized for further evaluation of their emergent condition. - New Patient This patient is new to me today: No - Critical Care Critical Care patient: No - Discharge Referral Referred to [facility] Med P.C.: No
--- NOTE | 2018-11-18 13:18 | PN ---
Progress Note (short form) - Note Progress Note: s: no cp, palps, dyspnea, palps Current Medications Aspirin (Ecotrin -) 81 mg PO DAILY [facility] Last Admin: 11/18/18 09:31 Dose: 81 mg Baclofen (Lioresal -) 10 mg PO TID [facility] Last Admin: 11/18/18 06:01 Dose: 10 mg Carbidopa/Levodopa (Sinemet 25/100 -) 0.5 each PO TID [facility] Last Admin: 11/18/18 06:00 Dose: 0.5 each Furosemide (Lasix -) 40 mg PO DAILY [facility] Last Admin: 11/18/18 09:31 Dose: 40 mg Hydrochlorothiazide (Hctz -) 12.5 mg PO DAILY [facility] Last Admin: 11/18/18 09:31 Dose: 12.5 mg Insulin Aspart (Novolog Vial Sliding Scale -) 1 vial SQ [facility]; Protocol Last Admin: 11/18/18 11:17 Dose: 6 unit Miscellaneous (Lidoderm Patch Removal) 1 each MC DAILY@2200 [facility] Last Admin: 11/17/18 21:35 Dose: Not Given Nitroglycerin (Nitrostat -) 0.4 mg SL Q5M PRN PRN Reason: FOR CHEST PAIN Pantoprazole Sodium (Protonix -) 40 mg PO BID [facility] Last Admin: 11/18/18 09:31 Dose: 40 mg Pramipexole Dihydrochloride (Mirapex -) 0.5 mg PO BID [facility] Last Admin: 11/18/18 09:31 Dose: 0.5 mg Pregabalin (Lyrica -) 50 mg PO TID [facility] Last Admin: 11/18/18 06:00 Dose: 50 mg Timolol Maleate (Timoptic 0.5%) 1 drop OU BID [facility] Vital Signs: Vital Signs Period Temp Pulse Resp BP Sys/Adorno Pulse Ox Last 24 Hr 97.5 F-98.6 F 59-67 18-18 110-146/53-65 98-99 Constitutional: Yes: No Distress, Obese Eyes: No: Sclera Icterus HENT: No: Nasal Congestion Neck: No: Decreased ROM Respiratory: Yes: CTA Bilaterally. No: Accessory Muscle Use, Rales, Wheezes Gastrointestinal: Yes: Normal Bowel Sounds. No: Distention, Hepatomegaly, Palpable Mass, Tenderness Cardiovascular: Yes: Regular Rate and Rhythm (soft heart sounds) JVD: No Carotid Bruit: No PMI: Non-Displaced Heart Sounds: Yes: S1, S2. No: Gallop Murmur: No: Systolic Murmur, Diastolic Murmur Extremities: No: Cool, Cyanosis Edema: No Peripheral Pulses: 2+ Left Carotid, 2+ Right Carotid, 2+ Left Doralis Pedis, 2+ Right Dorsalis Pedis Integumentary: No: Jaundice Neurological: Yes: Alert, Oriented (x3) Psychiatric: No: Agitated ekg: NSR, RBBB,no sig change vs prior echo 08/2018: nl lv/rv, mild mr cxr; no sig chf tele: sinus a/p: cp: -no signs acs, trops negx3, ecg w/o ischemic changes -cp improved -given risk factors would check echo and nuclear stress test -monitor on tele HTN: -bp controlled, cont home meds DM: -per primary MD CKD: -currently stable renal fxn
[2018-11-18] MEDS: TIMOLOL 0.5% OPHTHALMIC SOL 5 ML BOTTLE OU SCH ×2 (14:49→21:27)
[2018-11-18] MEDS ORDERED: FAMOTIDINE 20 MG/50 ML IVPB 20 MG/50 ML MG IVPB ONE (19:25)
[2018-11-18] MEDS ORDERED: ACETAMINOPHEN 325 MG TABLET (FP) PO ONE (19:26)
[2018-11-18] MEDS: LIDOCAINE PATCH REMOVAL MC SCH (21:21)
[2018-11-19] MEDS ORDERED: PT OWN MED DRAWER 7, Y5N ONE ×4 (05:32→21:56)
[2018-11-19] MEDS: BACLOFEN 10 MG TABLET (FP) PO SCH ×3 (05:50→22:33)
[2018-11-19] MEDS: PREGABALIN 50 MG CAPSULE PO SCH ×3 (05:50→22:32)
[2018-11-19] MEDS: CARBIDOPA/LEVODOPA 25/100 TABLET (FP) PO SCH ×3 (05:50→22:32)
[2018-11-19] MEDS: INSULIN SLIDING SCALE (NOVOLOG) 1 VIAL SQ SCH ×4 (06:08→22:33)
[2018-11-19 06:59] LABS: ANION GAP 6 MMOL/L (8-16); BLOOD UREA NITROGEN 22 mg/dL (7-18); CHLORIDE 107 mmol/L (98-107); CO2 29 mmol/L (21-32); CREATININE 1.6 mg/dL (0.55-1.3); GLUCOSE,RANDOM 147 mg/dL (74-106); MAGNESIUM 1.8 mg/dL (1.8-2.4); PHOSPHOROUS 3.9 mg/dL (2.5-4.9); POTASSIUM 4.5 mmol/L (3.5-5.1); SODIUM 142 mmol/L (136-145)
--- NOTE | 2018-11-19 10:28 | EKG ---
Test Reason : Blood Pressure : / mmHG Vent. Rate : 064 BPM Atrial Rate : 064 BPM P-R Int : 138 ms QRS Dur : 118 ms QT Int : 420 ms P-R-T Axes : 065 -25 039 degrees QTc Int : 433 ms NORMAL SINUS RHYTHM LEFT VENTRICULAR HYPERTROPHY WITH QRS WIDENING RIGHT BUNDLE BRANCH BLOCK ABNORMAL ECG WHEN COMPARED WITH ECG OF 15-SEP-2018 06:20, NO SIGNIFICANT CHANGE WAS FOUND Confirmed by TAHIRA BELLAMY, MARISSA ([id number]) on 11/19/2018 10:27:52 AM Referred By: Confirmed By:MARISSA HOFFMANN MD
[2018-11-19] MEDS ORDERED: REGADENOSON 0.4 MG/5 ML PRE-FILLED SYRINGE IVPUSH ONE ×2 (10:49→11:00)
[2018-11-19] MEDS: FUROSEMIDE 40 MG TABLET (FP) PO SCH (12:06)
[2018-11-19] MEDS: HYDROCHLOROTHIAZIDE 12.5 MG CAPSULE (FP) PO SCH (12:06)
[2018-11-19] MEDS: PRAMIPEXOLE DIHYDROCHLORIDE 0.5 MG TABLET PO SCH ×2 (12:06→22:33)
[2018-11-19] MEDS: TIMOLOL 0.5% OPHTHALMIC SOL 5 ML BOTTLE OU SCH ×2 (12:07→22:34)
[2018-11-19] MEDS: PANTOPRAZOLE 40 MG TABLET (FP) PO SCH ×2 (12:07→22:33)
[2018-11-19] MEDS: ASPIRIN COATED 81 MG TABLET.EC PO SCH (12:07)
[2018-11-19 12:51] VITALS: BMI 45.8
--- NOTE | 2018-11-19 14:17 | ECHO ---
Name: KEYANA BAXTER Exam:Adult Echocardiogram Study Date: 11/19/2018 08:55 AM Age: 77 yrs Reason For Study: LV Function Height: 66 in Weight: 200 lb BSA: 2.0 m2 MMode/2D Measurements & Calculations IVSd: 1.1 cm Ao root diam: 2.9 cm LVIDd: 3.3 cm LA dimension: 3.5 cm LVIDs: 2.3 cm LVPWd: 1.2 cm EDV(Teich): 43.1 ml LVOT diam: 1.9 cm ESV(Teich): 17.3 ml Doppler Measurements & Calculations MV E max sg: 73.1 cm/sec Ao V2 max: 169.4 cm/sec MV A max sg: 90.3 cm/sec Ao max P.5 mmHg MV E/A: 0.81 Ao V2 mean: 109.3 cm/sec MV dec time: 0.20 sec Ao mean P.6 mmHg Ao V2 VTI: 32.7 cm EFREN(I,D): 2.0 cm2 EFREN(V,D): 1.6 cm2 LV V1 max P.8 mmHg SV(LVOT): 65.7 ml LV V1 mean P.8 mmHg LV V1 max: 97.7 cm/sec LV V1 mean: 63.1 cm/sec LV V1 VTI: 23.3 cm TR max sg: 305.4 cm/sec Med Peak E' Sg: 6.5 cm/sec TR max P.3 mmHg Med E/e': 11.3 Lat Peak E' Sg: 9.3 cm/sec Lat E/e': 7.8 Procedure A complete two-dimensional transthoracic echocardiogram was performed (2D, M-mode, Doppler and color flow Doppler). Left Ventricle The left ventricle is normal in size. Left ventricular systolic function is normal. Ejection Fraction = 55- 60%. Grade I diastolic dysfunction, (abnormal relaxation pattern). Ratio E/E'= 11. No regional wall m otion abnormalities noted. Right Ventricle The right ventricle is normal size. The right ventricular systolic function is normal. Atria The left atrial size is normal. Right atrial size is normal. Mitral Valve The mitral valve is normal in structure and function. There is no mitral regurgitation noted. Tricuspid Valve The tricuspid valve is not well visualized. Pulmonary artery systolic pressure is at least 41 mmHg if RA pressure is assumed 41 mmHg. Aortic Valve The aortic valve is normal in structure and function. No aortic regurgitation is present. Pulmonic Valve The pulmonic valve is not well visualized. Great Vessels The aortic root is normal size. Pericardium/Pleura There is no pericardial effusion. Interpretation Summary The left ventricle is normal in size. Left ventricular systolic function is normal. No regional wall motion abnormalities noted. Ejection Fraction = 55-60%. Grade I diastolic dysfunction, (abnormal relaxation pattern). Ratio E/E'= 11 The right ventricular systolic function is normal. The left atrial size is normal. Right atrial size is normal. Pulmonary artery systolic pressure is at least 41 mmHg if RA pressure is assumed 41 mmHg There is no pericardial effusion. When compared to study dated 09/17/18, no significant changes are seen Tone Palacios MD 11/19/2018 02:16 PM
--- NOTE | 2018-11-19 14:35 | PN ---
Progress Note (short form) - Note Progress Note: s: no cp, palps, dyspnea, palps. complains of headache Current Medications Aspirin (Ecotrin -) 81 mg PO DAILY [facility] Last Admin: 11/19/18 12:07 Dose: 81 mg Baclofen (Lioresal -) 10 mg PO TID [facility] Last Admin: 11/19/18 13:30 Dose: 10 mg Carbidopa/Levodopa (Sinemet 25/100 -) 0.5 each PO TID [facility] Last Admin: 11/19/18 13:30 Dose: 0.5 each Furosemide (Lasix -) 40 mg PO DAILY [facility] Last Admin: 11/19/18 12:06 Dose: 40 mg Hydrochlorothiazide (Hctz -) 12.5 mg PO DAILY [facility] Last Admin: 11/19/18 12:06 Dose: 12.5 mg Insulin Aspart (Novolog Vial Sliding Scale -) 1 vial SQ [facility]; Protocol Last Admin: 11/19/18 12:07 Dose: 4 unit Miscellaneous (Lidoderm Patch Removal) 1 each MC DAILY@2200 [facility] Last Admin: 11/18/18 21:21 Dose: 1 each Nitroglycerin (Nitrostat -) 0.4 mg SL Q5M PRN PRN Reason: FOR CHEST PAIN Pantoprazole Sodium (Protonix -) 40 mg PO BID [facility] Last Admin: 11/19/18 12:07 Dose: 40 mg Pramipexole Dihydrochloride (Mirapex -) 0.5 mg PO BID [facility] Last Admin: 11/19/18 12:06 Dose: 0.5 mg Pregabalin (Lyrica -) 50 mg PO TID [facility] Last Admin: 11/19/18 13:30 Dose: 50 mg Timolol Maleate (Timoptic 0.5%) 1 drop OU BID [facility] Last Admin: 11/19/18 12:07 Dose: 1 drop Vital Signs: Vital Signs Period Temp Pulse Resp BP Sys/Adorno Pulse Ox Last 24 Hr 98.2 F-98.5 F 53-69 18-20 111-142/52-74 6-98 Constitutional: Yes: No Distress, Obese Eyes: No: Sclera Icterus HENT: No: Nasal Congestion Neck: No: Decreased ROM Respiratory: Yes: CTA Bilaterally. No: Accessory Muscle Use, Rales, Wheezes Gastrointestinal: Yes: Normal Bowel Sounds. No: Distention, Hepatomegaly, Palpable Mass, Tenderness Cardiovascular: Yes: Regular Rate and Rhythm (soft heart sounds) JVD: No Carotid Bruit: No PMI: Non-Displaced Heart Sounds: Yes: S1, S2. No: Gallop Murmur: No: Systolic Murmur, Diastolic Murmur Extremities: No: Cool, Cyanosis Edema: No Peripheral Pulses: 2+ Left Carotid, 2+ Right Carotid, 2+ Left Doralis Pedis, 2+ Right Dorsalis Pedis Integumentary: No: Jaundice Neurological: Yes: Alert, Oriented (x3) Psychiatric: No: Agitated ekg: NSR, RBBB,no sig change vs prior echo 08/2018: nl lv/rv, mild mr cxr; no sig chf mibi 11/2018 small to mod zone of inferolateral and lateral reversible defect c/ w mild intensity ischemia, EF 59% echo 11/2018 nl LV function, EF 55-60%, grade I diastolic dysufnction, PASP at least 41 mmHg tele: sinus a/p: cp: -no signs acs, trops negx3, ecg w/o ischemic changes -cp improved - echo nl EF - mibi with mild ischemia - patient wishes to defer cath, not having chest pain now. Discussed with patient's daughter Christiane, agree with conservative management with aspirin. lipid panel reviewed, defer statin. follow up as outpatient. HTN: -bp controlled, cont home meds DM: -per primary MD CKD: -currently stable renal fxn
[2018-11-19] MEDS ORDERED: ACETAMINOPHEN/CAFFEINE/BUTALBITAL 1 TAB PO ONE (15:18)
--- NOTE | 2018-11-19 15:18 | PN ---
Teaching Attending Note Name of Resident: Afshan Pham ATTENDING PHYSICIAN STATEMENT I saw and evaluated the patient. I reviewed the resident's note and discussed the case with the resident. I agree with the resident's findings and plan as documented with exceptions below. SUBJECTIVE: Patient seen and examined. chest pain this AM, resolved now. OBJECTIVE: Vital Signs Period Temp Pulse Resp BP Sys/Adorno Pulse Ox Last 24 Hr 98.2 F-98.5 F 53-69 18-20 111-142/52-74 6-97 Intake & Output 11/16/18 11/17/18 11/18/18 11/19/18 23:59 23:59 23:59 23:59 Intake Total 1250 Output Total 1000 1820 300 Balance -1000 -570 -300 Weight 200 lb 259 lb 6 oz 259 lb General: sitting in chair in no acute distress Chest: limited by habitus, no rales or wheezing, no chest wall tenderness Abdomen:Soft, obese, NT Extremities: no edema, full ROM Left shoulder Home Medications Medication Instructions Recorded Insulin NPL/Insulin Lispro 30 unit SQ AM 05/04/13 [Humalog Mix 75-25 Pen] Insulin Lispro Protamin/Lispro 27 unit SQ HS 12/22/16 [Humalog Mix 75-25 Vial] Multivitamins [Multivit ([facility] 1 mg PO DAILY 05/08/17 Formulary)] Omeprazole 40 mg PO BID 05/08/17 Pregabalin [Lyrica -] 50 mg PO TID 05/08/17 Pramipexole Dihydrochloride 0.5 mg PO BID 03/14/18 [Mirapex -] Calcium Carbonate/Vitamin D3 600 mg PO TID 03/15/18 [Calcium 600 + Vit D 400 Softgl] Carbidopa/Levodopa 0.5 each PO TID 09/13/18 [Carbidopa-Levodopa 25-100 Tab] Ascorbate Calcium [Vitamin C] 500 mg PO BID 11/17/18 Baclofen 10 mg PO TID 11/17/18 Brimonidine Tartrate/Timolol 5 ml OU BID 11/17/18 [Combigan Eye Drops] Docusate Sodium 100 mg PO DAILY 11/17/18 Furosemide [Lasix -] 40 mg PO DAILY 11/17/18 Lisinopril/Hydrochlorothiazide 1 each PO DAILY 11/17/18 [Lisinopril-Hctz 10-12.5 mg Tab] Active Medications Aspirin (Ecotrin -) 81 mg PO DAILY [facility] Last Admin: 11/19/18 12:07 Dose: 81 mg Baclofen (Lioresal -) 10 mg PO TID [facility] Last Admin: 11/19/18 13:30 Dose: 10 mg Carbidopa/Levodopa (Sinemet 25/100 -) 0.5 each PO TID [facility] Last Admin: 11/19/18 13:30 Dose: 0.5 each Furosemide (Lasix -) 40 mg PO DAILY [facility] Last Admin: 11/19/18 12:06 Dose: 40 mg Hydrochlorothiazide (Hctz -) 12.5 mg PO DAILY [facility] Last Admin: 11/19/18 12:06 Dose: 12.5 mg Insulin Aspart (Novolog Vial Sliding Scale -) 1 vial SQ ACHS [facility]; Protocol Last Admin: 11/19/18 12:07 Dose: 4 unit Miscellaneous (Lidoderm Patch Removal) 1 each [facility] DAILY@2200 [facility] Last Admin: 11/18/18 21:21 Dose: 1 each Nitroglycerin (Nitrostat -) 0.4 mg SL Q5M PRN PRN Reason: FOR CHEST PAIN Pantoprazole Sodium (Protonix -) 40 mg PO BID [facility] Last Admin: 11/19/18 12:07 Dose: 40 mg Pramipexole Dihydrochloride (Mirapex -) 0.5 mg PO BID [facility] Last Admin: 11/19/18 12:06 Dose: 0.5 mg Pregabalin (Lyrica -) 50 mg PO TID [facility] Last Admin: 11/19/18 13:30 Dose: 50 mg Timolol Maleate (Timoptic 0.5%) 1 drop OU BID [facility] Last Admin: 11/19/18 12:07 Dose: 1 drop Laboratory Results - last 24 hr 11/18/18 11/18/18 11/19/18 16:43 21:20 05:49 Sodium Potassium Chloride Carbon Dioxide Anion Gap BUN Creatinine Creat Clearance w eGFR POC Glucometer 200 218 143 Random Glucose Calcium Phosphorus Magnesium 11/19/18 11/19/18 06:00 12:03 Sodium 142 Potassium 4.5 Chloride 107 Carbon Dioxide 29 Anion Gap 6 L BUN 22 H Creatinine 1.6 H Creat Clearance w eGFR 31.17 POC Glucometer 230 Random Glucose 147 H Calcium 8.0 L Phosphorus 3.9 Magnesium 1.8 2D echo and stress test results reviewed ASSESSMENT AND PLAN: 77 yof HTN, IDDM, Bladder cx s/p post ileal conduit, multiple SBOs, SAH, Parkinson's CKD, DVT s/p IVC filter admitted with atypical chest pain. -Chest pain, atypical/some typical features -Hyperkalemia, ?medication induced -IDDM -HTN -Bladder cancer s/p ileal conduit -SAH 2017 -DVT s/p IVC filter -Multiple SBOs -Parkinson's disease -CKD stage III -h/o Salmonella bacteremia Plan: telemetry with no events. 2Decho/stress test results noted Follow up with cardiology about additional w/u including cath vs medical management. Lipid panel noted. Hyperkalemia resolved, off ARB Continue lasix/HCTZ. Continue sinemet. resume home insulin regimen on dc Dispo pending cardiology input and further work up Plan discussed with nursing and patient.
--- NOTE | 2018-11-19 17:57 | DS ---
Physical Exam: SUBJECTIVE: Patient seen and examined; no complaints; OBJECTIVE: Vital Signs Period Temp Pulse Resp BP Sys/Adorno Pulse Ox Last 24 Hr 98.1 F-98.5 F 53-69 18-20 111-143/52-74 6-97 PHYSICAL EXAM GENERAL: The patient is awake, alert, and fully oriented, in no acute distress. HEAD: Normal with no signs of trauma. EYES: PERRL, extraocular movements intact, sclera anicteric, conjunctiva clear. ENT: Ears normal, nares patent, oropharynx clear without exudates, moist mucous membranes. NECK: Trachea midline, full range of motion, supple. LUNGS: Breath sounds equal, clear to auscultation bilaterally, no wheezes, no crackles, no accessory muscle use. HEART: Regular rate and rhythm, S1, S2 without murmur, rub or gallop. ABDOMEN: Soft, nontender, nondistended, normoactive bowel sounds, no guarding, no rebound, no hepatosplenomegaly, no masses. EXTREMITIES: 2+ pulses, warm, well-perfused, no edema. NEUROLOGICAL: Cranial nerves II through XII grossly intact. Normal speech, gait not observed. PSYCH: Normal mood, normal affect. SKIN: Warm, dry, normal turgor, no rashes or lesions noted. LABS Laboratory Results - last 24 hr 11/18/18 11/19/18 11/19/18 21:20 05:49 06:00 Sodium 142 Potassium 4.5 Chloride 107 Carbon Dioxide 29 Anion Gap 6 L BUN 22 H Creatinine 1.6 H Creat Clearance w eGFR 31.17 POC Glucometer 218 143 Random Glucose 147 H Calcium 8.0 L Phosphorus 3.9 Magnesium 1.8 11/19/18 11/19/18 12:03 16:58 Sodium Potassium Chloride Carbon Dioxide Anion Gap BUN Creatinine Creat Clearance w eGFR POC Glucometer 230 273 Random Glucose Calcium Phosphorus Magnesium HOSPITAL COURSE: Date of Admission:11/16/18 Date of Discharge: 11/19/18 This is a 77 yof HTN, IDDM, Bladder cx s/p post ileal conduit, multiple SBOs, SAH, Parkinson's CKD, DVT s/p IVC filter admitted with atypical chest pain. Exercise stress test negative. Nuclear with small to moderate reversible defect inferior/lat. Findings were discussed with patient who wishes to defer cath, not having chest pain in hospital. Cardiology discussed with patient's daughter Christiane, agree with conservative management with aspirin. Lipid panel reviewed, defer statin. Follow up as outpatient with cardiology. Patient also complained of headache today, refused mediations for headache and refused CT head. Minutes to complete discharge: 35 Discharge Summary Reason For Visit: ELEVATION OF CAEDIAC ENZYMES,CHEST PAIN Current Active Problems Chest pain (Acute) Elevated troponin (Acute) Condition: Stable - Instructions Diet, Activity, Other Instructions: You were admitted with chest pain and heart attack was ruled out. Your stress test was abnormal and discussion was held by utility worker [employer] with you and your daughter. You are advised outpatient follow up with [employer] for continued treatment. Your potassium was noted high and your medications have been changed. MEDICATIONS: Stop your lisinopril/HCTZ combination. Continue other medications as before New medciation: HCTZ 12.5 mg daily, prescription has been sent to the pharmacy FOLLOW UP: With primary care physician in 1 week With Nurse Care Manager Dr. Gaming in 1 week (Contact information provided) You are advised to establish care with a promotional representative if you do not have one. Please discuss with your doctor in this regard. Blood work BMP (basic metabolic panel) in 1 week with your doctor to monitor your kidney and potassium levels. You are advised to establish care with neurologist (contact information provided ) You were seen by physical therapy and advised home PT which has been arranged. If you notice any new chest pain, or pressure, trouble breathing, dizziness, arm or jaw pain or any new concerns, please call 911 or come to the ED. Referrals: Micaela Gaming MD [Staff Physician] - Kandy Hubbard MD [Staff Physician] - Disposition: VNS/HOME HEALTH CARE - Home Medications Comprehensive Discharge Medication List: Ambulatory Orders Insulin NPL/Insulin Lispro [Humalog Mix 75-25 Pen] 30 unit SQ AM 05/04/13 Insulin Lispro Protamin/Lispro [Humalog Mix 75-25 Vial] 27 unit SQ HS 12/22/16 Multivitamins [Multivit ([facility] Formulary)] 1 mg PO DAILY 05/08/17 Omeprazole 40 mg PO BID 05/08/17 Pregabalin [Lyrica -] 50 mg PO TID 05/08/17 Pramipexole Dihydrochloride [Mirapex -] 0.5 mg PO BID 03/14/18 Calcium Carbonate/Vitamin D3 [Calcium 600 + Vit D 400 Softgl] 600 mg PO TID Carbidopa/Levodopa [Carbidopa-Levodopa 25-100 Tab] 0.5 each PO TID 09/13/18 Ascorbate Calcium [Vitamin C] 500 mg PO BID 11/17/18 Baclofen 10 mg PO TID 11/17/18 Brimonidine Tartrate/Timolol [Combigan 0.2%-0.5% Eye Drops] 5 ml OU BID Docusate Sodium 100 mg PO DAILY 11/17/18 Furosemide [Lasix -] 40 mg PO DAILY 11/17/18 Aspirin Coated [Ecotrin -] 81 mg PO DAILY #30 tablet.ec 11/19/18 Hydrochlorothiazide [Hctz -] 12.5 mg PO DAILY #30 cap 11/19/18 This patient is new to me today: Yes Date on this admission: 11/19/18 Emergency Visit: Yes ED Registration Date: 11/16/18 Care time: The patient presented to the Emergency Department on the above date and was hospitalized for further evaluation of their emergent condition. Critical Care patient: No - Discharge Referral Referred to [facility] Med P.C.: No
[2018-11-19] MEDS ORDERED: INSULIN SLIDING SCALE (NOVOLOG) 1 VIAL SQ ONE (18:55)
[2018-11-19] MEDS ORDERED: ACETAMINOPHEN 325 MG TABLET (FP) PO PRN (19:03)
[2018-11-19] MEDS: LIDOCAINE PATCH REMOVAL MC SCH (22:33)
[2018-11-20] MEDS ORDERED: PT OWN MED DRAWER 7, Y5N ONE (06:10)
[2018-11-20] MEDS: INSULIN SLIDING SCALE (NOVOLOG) 1 VIAL SQ SCH ×2 (06:26→11:38)
[2018-11-20] MEDS: CARBIDOPA/LEVODOPA 25/100 TABLET (FP) PO SCH (06:26)
[2018-11-20] MEDS: BACLOFEN 10 MG TABLET (FP) PO SCH (06:29)
[2018-11-20] MEDS: PREGABALIN 50 MG CAPSULE PO SCH (06:30)
--- NOTE | 2018-11-20 09:13 | PN ---
Teaching Attending Note Name of Resident: Afshan Pham ATTENDING PHYSICIAN STATEMENT I saw and evaluated the patient. I reviewed the resident's note and discussed the case with the resident. I agree with the resident's findings and plan as documented with exceptions below. SUBJECTIVE: patient seen and examined. No headache, chest pain or complaints, asking about her cell phone to the provider and nursing. OBJECTIVE: Vital Signs Period Temp Pulse Resp BP Sys/Adorno Pulse Ox Last 24 Hr 97.9 F-98.4 F 51-68 20-20 109-146/53-76 96-96 Intake & Output 11/17/18 11/18/18 11/19/18 11/20/18 23:59 23:59 23:59 23:59 Intake Total 1250 450 Output Total 1000 1820 800 600 Balance -1000 -570 -350 -600 Weight 259 lb 6 oz 259 lb General: morbidly obese, no acute distress Chest: limited by habitus, no rales or wheezing Abdomen:soft, obese, NT Extremities: no edema Home Medications Medication Instructions Recorded Insulin NPL/Insulin Lispro 30 unit SQ AM 05/04/13 [Humalog Mix 75-25 Pen] Insulin Lispro Protamin/Lispro 27 unit SQ HS 12/22/16 [Humalog Mix 75-25 Vial] Multivitamins [Multivit ([facility] 1 mg PO DAILY 05/08/17 Formulary)] Omeprazole 40 mg PO BID 05/08/17 Pregabalin [Lyrica -] 50 mg PO TID 05/08/17 Pramipexole Dihydrochloride 0.5 mg PO BID 03/14/18 [Mirapex -] Calcium Carbonate/Vitamin D3 600 mg PO TID 03/15/18 [Calcium 600 + Vit D 400 Softgl] Carbidopa/Levodopa 0.5 each PO TID 09/13/18 [Carbidopa-Levodopa 25-100 Tab] Ascorbate Calcium [Vitamin C] 500 mg PO BID 11/17/18 Baclofen 10 mg PO TID 11/17/18 Brimonidine Tartrate/Timolol 5 ml OU BID 11/17/18 [Combigan 0.2%-0.5% Eye Drops] Docusate Sodium 100 mg PO DAILY 11/17/18 Furosemide [Lasix -] 40 mg PO DAILY 11/17/18 Aspirin Coated [Ecotrin -] 81 mg PO DAILY #30 tablet.ec 04/01/19 Hydrochlorothiazide [Hctz -] 12.5 mg PO DAILY #30 cap 11/19/18 ASSESSMENT AND PLAN: 77 yof HTN, IDDM, Bladder cx s/p post ileal conduit, multiple SBOs, SAH, Parkinson's CKD, DVT s/p IVC filter admitted with atypical chest pain. -Chest pain, atypical/some typical features -Hyperkalemia, ?medication induced -IDDM -HTN -Bladder cancer s/p ileal conduit -SAH 2016 -DVT s/p IVC filter -Multiple SBOs -Parkinson's disease -CKD stage III -h/o Salmonella bacteremia Plan: telemetry with no events. 2Decho/stress test results noted discussed with cardiology/daughter, plan for medical management. Was already d/hira yesterday, patient to leave today with aide and home services as discussed with nursing.
[2018-11-20 09:14] VITALS: BP 128/62; PULSE 61; TEMP 98
[2018-11-20] MEDS: HYDROCHLOROTHIAZIDE 12.5 MG CAPSULE (FP) PO SCH (11:36)
[2018-11-20] MEDS: ASPIRIN COATED 81 MG TABLET.EC PO SCH (11:36)
[2018-11-20] MEDS: PRAMIPEXOLE DIHYDROCHLORIDE 0.5 MG TABLET PO SCH (11:37)
[2018-11-20] MEDS: FUROSEMIDE 40 MG TABLET (FP) PO SCH (11:37)
[2018-11-20] MEDS: PANTOPRAZOLE 40 MG TABLET (FP) PO SCH (11:37)
[2018-11-20] MEDS: TIMOLOL 0.5% OPHTHALMIC SOL 5 ML BOTTLE OU SCH (11:38)
== END 2018-11-20 12:25 | disposition home health service (06) ==
LOC: JER 19:13 → JERBED 22:31 → J4S 11-17 15:25
PROVIDERS: ADMIT Internal Medicine; ATTEND Hospitalist
PROC: 3E033GC Introduction of Other Therapeutic Substance into Peripheral Vein, Percutaneous Approach (ICD-10-PCS; principal; 2018-11-16)
DX: R07.89 Other chest pain (principal); R77.8 Other specified abnormalities of plasma proteins; E11.22 Type 2 diabetes mellitus with diabetic chronic kidney disease; I12.9 Hypertensive chronic kidney disease with stage 1 through stage 4 chronic kidney disease, or unspecified chronic kidney disease; N18.3 Chronic kidney disease, stage 3 (moderate); Z79.4 Long term (current) use of insulin; G20 Parkinson's disease; K21.9 Gastro-esophageal reflux disease without esophagitis; E88.09 Other disorders of plasma-protein metabolism, not elsewhere classified; D64.9 Anemia, unspecified; E87.5 Hyperkalemia; M19.90 Unspecified osteoarthritis, unspecified site; E66.9 Obesity, unspecified; Z68.42 Body mass index [BMI] 45.0-49.9, adult; Z85.51 Personal history of malignant neoplasm of bladder; Z86.79 Personal history of other diseases of the circulatory system; Z86.718 Personal history of other venous thrombosis and embolism; Z95.828 Presence of other vascular implants and grafts; Z96.651 Presence of right artificial knee joint; Z91.040 Latex allergy status; Z79.01 Long term (current) use of anticoagulants
CPT/HCPCS: 36415; 71046-TC-FY; 76775-TC; 78452-TC; 80048; 80053; 80061; 82550; 82728; 82962; 83036; 83540; 83550; 83721; 83735; 84100; 84484; 85025; 85027; 93005; 93010; 93017; 93306-TC; 96365; 96375; 97116-GP; 97161-GP; 99285-25; A9502; G0378; J0475; J2785

== ENCOUNTER 2018-11-22 18:11 | Inpatient (IN) | payer OTHER ==
--- NOTE | 2018-11-22 18:42 | PDOC ---
History of Present Illness - General Chief Complaint: SIRS, Suspected/Possible Stated Complaint: FEVER - History of Present Illness Initial Comments: The pt is a 78F w/ a history of HTN, DM, Bladder Ca s/p urostomy, SAH (2017), DVT s/p IVC filter (no AC), CKD, who was recently admitted for ACS who presents for evaluation of 1 day of fever to 104F at home today. Endorses associated malaise generalized weakness. She also reports having chest pain intermittently today but denies having chest pain currently. She reports the chest pain started at rest, resolved spontaneously, lasted minutes, and is not currently present. Endorses cough, but daughter who stays with the patient denies the pt coughing today. No changes to urostomy per pt/daughter Denies MASON, vision changes, N/V/C/D, rash, or changes in sensation/strength 11/22/18 19:02 Past History - Past Medical History Allergies/Adverse Reactions: Allergies Allergy/AdvReac Type Severity Reaction Status Date / Time latex Allergy Verified 11/16/18 19:27 Home Medications: Ambulatory Orders Insulin NPL/Insulin Lispro [Humalog Mix 75-25 Pen] 30 unit SQ AM 05/04/13 Insulin Lispro Protamin/Lispro [Humalog Mix 75-25 Vial] 27 unit SQ HS 12/22/16 Multivitamins [Multivit ([facility] Formulary)] 1 mg PO DAILY 05/08/17 Omeprazole 40 mg PO BID 05/08/17 Pregabalin [Lyrica -] 50 mg PO TID 05/08/17 Pramipexole Dihydrochloride [Mirapex -] 0.5 mg PO BID 03/14/18 Calcium Carbonate/Vitamin D3 [Calcium 600 + Vit D 400 Softgl] 600 mg PO TID Carbidopa/Levodopa [Carbidopa-Levodopa 25-100 Tab] 0.5 each PO TID 09/13/18 Ascorbate Calcium [Vitamin C] 500 mg PO BID 11/17/18 Baclofen 10 mg PO TID 11/17/18 Brimonidine Tartrate/Timolol [Combigan 0.2%-0.5% Eye Drops] 5 ml OU BID Docusate Sodium 100 mg PO DAILY 11/17/18 Furosemide [Lasix -] 40 mg PO DAILY 11/17/18 Aspirin Coated [Ecotrin -] 81 mg PO DAILY #30 tablet.ec 11/19/18 Hydrochlorothiazide [Hctz -] 12.5 mg PO DAILY #30 cap 11/19/18 Anemia: No Asthma: No Cancer: Yes (BLADDER) Cardiac Disorders: No CVA: Yes (2017, SAH) COPD: No CHF: No Dementia: No Diabetes: Yes GI Disorders: Yes (GERD, SBO's) Disorders: Yes (ileal conduit) HTN: Yes Hypercholesterolemia: No Liver Disease: No Seizures: No Thyroid Disease: No - Surgical History Abdominal Surgery: Yes Appendectomy: No Cardiac Surgery: No Cholecystectomy: Yes Lung Surgery: No Neurologic Surgery: No Orthopedic Surgery: Yes (R KNEE REPLACEMENT w/ revisions) - Immunization History Immunization Up to Date: Yes - Suicide/Smoking/Psychosocial Hx Smoking Status: No Smoking History: Never smoked Have you smoked in the past 12 months: No Number of Cigarettes Smoked Daily: 0 Hx Alcohol Use: No Drug/Substance Use Hx: No Substance Use Type: None Hx Substance Use Treatment: No Review of Systems - Review of Systems Able to Perform ROS?: Yes Comments:: GENERAL/CONSTITUTIONAL: +fever and generalized weakness HEAD, EYES, EARS, NOSE AND THROAT: No change in vision or hearing. No sore throat RESPIRATORY: Denies hemoptysis GASTROINTESTINAL: No nausea, vomiting, diarrhea or constipation GENITOURINARY: + cloudy urine in ostomy device w/ sediment SKIN: No rash NEUROLOGIC: No headache, vertigo, loss of consciousness, or change in strength/ sensation ENDOCRINE: No increased thirst. No abnormal weight change HEMATOLOGIC/LYMPHATIC: +hx of DVT s/p IVC filter ALLERGIC/IMMUNOLOGIC: No hives or skin allergy 11/22/18 21:34 Is the patient limited Nauruan proficient: No *Physical Exam - Vital Signs Vital Signs Temp Pulse Resp BP Pulse Ox 103.1 F H 78 20 113/57 L 98 11/22/18 19:00 11/22/18 21:33 11/22/18 21:33 11/22/18 18:15 11/22/18 21:33 11/22/18 21:39 - Physical Exam Comments: GENERAL: Awake, alert, and oriented to person/place/time, in no acute distress HEAD: No signs of trauma, normocephalic, atraumatic EYES: PERRLA, EOMI, sclera anicteric, conjunctiva clear ENT: Hearing grossly normal, nares patent, oropharynx clear without exudates LUNGS: No distress, speaks full sentences, mild wheeze at the bases w/ poor inspiratory effort HEART: Regular rate and rhythm, normal S1 and S2, no murmurs appreciated ABDOMEN: Soft protuberant, RLQ urostomy w/ device in place, yellow urine in bag (cloudy w/ sediment), LLQ TTP (w/o rebound, reported as chronic) EXTREMITIES: Normal inspection, Normal range of motion, no edema. No clubbing or cyanosis NEUROLOGICAL: Cranial nerves II through XII grossly intact. Normal speech, no focal sensorimotor deficits 11/22/18 21:40 ED Treatment Course - LABORATORY CBC & Chemistry Diagram: 11/28/18 06:30 11/28/18 06:30 Medical Decision Making - Medical Decision Making The pt is a 78F w/ a history of HTN, DM, Bladder Ca s/p urostomy, SAH (2017), DVT s/p IVC filter (no AC), CKD who presents for evaluation of fever and malaise for 1 day. Sepsis labs sent ECG CXR BLE US Ofirmev 1g IV once 11/22/18 21:13 No leukocytosis No anemia CMP/Trop hemolyzed, will resend Lactate wnl 11/22/18 21:19 Sepesis likely 2/2 UTI -Rocephin and Vancomycin given -Will begin resuscitation w/ 1L NS Trop I 0.08 ECG w/ sinus tach; HR 111; QTc 481; T-wave inversions in V3-4 -ASA 243mg PO once K slightly elevated but labs partially hemolyzed CXR 11/22/18 There is a weak inspiration with prominent mediastinum , central crowding but no sign of an acute process. Reported By: Valentin Salguero MD Bilateral lower extremity venous ultrasound 11/22/18 Impression: No DVT is identified involving either leg. Reported By: Brandon Heredia MD 11/22/18 22:51 Dispo: admit for IV abx *DC/Admit/Observation/Transfer Diagnosis at time of Disposition: ACS (acute coronary syndrome) Sepsis Qualifiers: Sepsis type: sepsis due to unspecified organism Qualified Code(s): A41.9 - Sepsis, unspecified organism Urinary tract infection Qualifiers: Urinary tract infection type: site unspecified Hematuria presence: without hematuria Qualified Code(s): N39.0 - Urinary tract infection, site not specified - Discharge Dispostion Condition at time of disposition: Guarded Decision to Admit order: Yes - Referrals - Patient Instructions - Post Discharge Activity
[2018-11-22] MEDS ORDERED: ACETAMINOPHEN 1000 MG/100 ML VIAL (NON FORMULARY) IVPB ONE (18:51)
--- NOTE | 2018-11-22 19:09 | PDOC ---
Attending Attestation - HPI HPI: The patient is a 78 year old female, with a significant PMH of bladder cancer (s/p ileal conduit), GERD, multiple SBOs, DM, HTN, CVA, SAH, Parkinsons CKD, and DVT (s/p IVC filter), who presents to the emergency department today complaining of fever for one day. Patient was recently admitted for ACS, and reports having a fever earlier today measured at 104F. She notes associated diffuse weakness and malaise. Patient also endorses intermittent chest pain which is suddenly onset while at rest and self-resolved. Patient denies chest pain at this time. She denies any changes in her urostomy recently. The patient denies shortness of breath, headache and dizziness. Denies chills, nausea, vomit, diarrhea and constipation. Denies dysuria, frequency, urgency and hematuria. Allergies: Latex Past surgical history: Cholecystectomy, right knee total knee replacement Social history: No reported PCP: [facility] service 11/22/18 21:48 - Physicial Exam PE: GENERAL: +Febrile. Awake, alert, and fully oriented, in no acute distress HEAD: No signs of trauma EYES: PERRLA, EOMI, sclera anicteric, conjunctiva clear ENT: Auricles normal inspection, hearing grossly normal, nares patent, oropharynx clear without exudates. Moist mucosa NECK: Normal ROM, supple, no lymphadenopathy, JVD, or masses LUNGS: +Soft and expiratory wheezing at bilateral bases with poor effort. Breath sounds equal, clear to auscultation bilaterally. No crackles. HEART: +Tachycardic. Normal S1 and S2, no murmurs, rubs or gallops. ABDOMEN: +Obese. +Urostomy at right lower quadrant, with yellow urine and sediment. +Left lower quadrant tenderness to palpation. Soft, normoactive bowel sounds. No guarding, no rebound. No masses EXTREMITIES: +Bilateral calf tenderness to palpation without lower extremity edema. Normal range of motion. No clubbing or cyanosis. No cords, erythema. NEUROLOGICAL: Cranial nerves II through XII grossly intact. Normal speech, normal gait SKIN: Warm, Dry, normal turgor, no rashes or lesions noted. 11/22/18 21:49 - Medical Decision Making EXAM#: TYPE/EXAM: RESULT: [id number] RAD/CHEST X-RAY PORTABLE* Chest: Sepsis A single AP view of the chest is submitted. There is a weak inspiration with prominent mediastinum , central crowding but no sign of an acute process. Correlation recommended. Reported By: Valentin Salguero MD 11/22/18 19:46 EXAM#: TYPE/EXAM: RESULT: [id number] US/DUPLEX VASCUL US-2LEGS Bilateral lower extremity venous ultrasound Clinical information given: evaluate for DVT Impression: No DVT is identified involving either leg. Reported By: Brandon Heredia MD 11/22/18 22:14 Documentation prepared by RETA Love, acting as medical billing specialist for Enedina Smith DO. 11/22/18 22:33 <Katarina Chris - Last Filed: 11/22/18 22:33> - Resident Resident Name: Kaushal Cedeño - ED Attending Attestation I have performed the following: I have examined & evaluated the patient, The case was reviewed & discussed with the resident, I agree w/resident's findings & plan, Exceptions are as noted - Critical Care Time Total Critical Care Time: 35 Critical Care Statement: The care of this patient involved high complexity decision making to prevent further life threatening deterioration of the patient 's condition and/or to evaluate & treat vital organ system(s) failure or risk of failure. - Medical Decision Making 11/22/18 19:09 I, Dr. Enedina Smith DO, attest that this document has been prepared under my direction and personally reviewed by me in its entirety. I further attest, that it accurately reflects all work, treatment, procedures and medical decision -making performed by me. 11/22/18 19:37 a/p: 78yo female recently in the hospital for cp presents for eval of fever and pain -pt arrives with SIRS criteria -hx of urostomy- no w sediment in the bag which the daughter states is new -fever -tachy -soft wheezing at the base, started a dry cough today -sepsis protocol started, labs drawn -prior hx of kleb pneumo, proteus, ecoli - will give vanco and rocephin 11/22/18 19:39 11/22/18 20:46 flu negative cxr clear 11/22/18 22:40 pt with mary jane pt with UTI fever, sirs UTI with sepsis will need admission 11/22/18 23:09 resident discussed the case with NEREIDA who accepts the patient to service <Enedina Smith - Last Filed: 11/22/18 23:14> Heart Score/ECG Review - ECG Intrepretation Comment:: 11/22/18 19:39 sinus tach at 111, RBBB, LAFB, new t wave inversions anterior leads-change from prior <Enedina Smith - Last Filed: 11/22/18 23:14>
[2018-11-22] MEDS ORDERED: VANCOMYCIN 1,000 MG in DEXTROSE 5%-WATER - 250 ML IVPB ONE (19:31)
[2018-11-22] MEDS ORDERED: CEFTRIAXONE 1,000 MG in DEXTROSE 5%-WATER - 50 ML IVPB ONE (19:32)
[2018-11-22] MEDS ORDERED: VANCOMYCIN 1 GRAM (PRE-DOCKED) 1,000 MG/250 ML BAG IVPB ONE (19:34)
[2018-11-22] MEDS ORDERED: ACETAMINOPHEN INJECTION 100 ML IVPB ONE (19:34)
[2018-11-22] MEDS ORDERED: CEFTRIAXONE 1 GM/50 ML BAG ONE (19:35)
[2018-11-22 19:42] LABS: BASO % 0.3 % (0-2.0); HEMATOCRIT 34.5 % (32.4-45.2); HEMOGLOBIN 10.9 GM/dL (10.7-15.3); LYMPH % 4.6 % (8-40); MCH 28.5 pg (25.7-33.7); MCHC 31.7 g/dl (32.0-36.0); MEAN CELL VOLUME 89.9 fl (80-96); MEAN PLT VOLUME 10.4 fl (7.5-11.1); MONO % 7.1 % (3.8-10.2); PLATELET COUNT 117 K/MM3 (134-434); RBC 3.84 M/mm3 (3.60-5.2); RDW 16.5 % (11.6-15.6); WHITE BLOOD COUNT 9.9 K/mm3 (4.0-10.0)
[2018-11-22 20:53] LABS: PLATELET ESTIMATE DECREASED
[2018-11-22 21:29] LABS: URINE APPEARANCE TURBID; URINE BACTERIA 4685.4 /hpf (NEGATIVE); URINE BILIRUBIN NEGATIVE (NEGATIVE); URINE CASTS 33 /hpf (0-8); URINE COLOR YELLOW; URINE GLUCOSE (UA) NEGATIVE (NEGATIVE); URINE KETONE TRACE (NEGATIVE); URINE LEUK ESTERASE 3+ (NEGATIVE); URINE NITRITE NEGATIVE (NEGATIVE); URINE PROTEIN 2+ (NEGATIVE); URINE RBC 27 /hpf (0-4); URINE UROBILINOGEN 0.2 mg/dL (0.2-1.0); URINE WBC 646 /hpf (0-5)
[2018-11-22 21:35] LABS: INR 1.26 (0.83-1.09); PROTHROMBIN TIME (PATIENT) 14.9 SEC (9.7-13.0)
[2018-11-22 21:38] LABS: ACTIVATED PTT 36.3 SECONDS (25.2-36.5)
[2018-11-22 22:01] LABS: ALBUMIN 2.5 g/dl (3.4-5.0); ALK PHOS 143 U/L (45-117); ANION GAP 7 MMOL/L (8-16); BILIRUBIN,TOTAL 1.4 mg/dL (0.2-1); BLOOD UREA NITROGEN 38 mg/dL (7-18); CALCIUM 7.7 mg/dL (8.5-10.1); CHLORIDE 104 mmol/L (98-107); CO2 26 mmol/L (21-32); CREATININE 2.4 mg/dL (0.55-1.3); GLUCOSE,RANDOM 229 mg/dL (74-106); POTASSIUM 5.6 mmol/L (3.5-5.1); SGOT/AST 53 U/L (15-37); SGPT/ALT 21 U/L (13-61); SODIUM 136 mmol/L (136-145); TOT PROT 6.6 g/dl (6.4-8.2)
[2018-11-22] MEDS ORDERED: ASPIRIN 81 MG CHEWABLE TABLETS PO ONE (22:20)
[2018-11-22] MEDS ORDERED: SODIUM CHLORIDE 0.9% 500 ML INFUS.BAG IV ONE ×2 (22:25→23:16)
--- NOTE | 2018-11-22 22:50 | PN ---
Teaching Attending Note Name of Resident: Diallo Ley ATTENDING PHYSICIAN STATEMENT I saw and evaluated the patient. I reviewed the resident's note and discussed the case with the resident. I agree with the resident's findings and plan as documented. 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 Recently admitted for ACS. Now has associated malaise generalized weakness. She also reports having chest pain intermittently today but denies having chest pain currently. She reports the chest pain started at rest, resolved spontaneously, lasted minutes. No changes to urostomy per patient and daughter. Has had chronic diarrhea. She denies headache, vision changes, nausea , vomiting, constipation, rash, or changes in sensation. 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 Normocephalic, atraumatic. External ears are normal and hearing is grossly intact. No nasal discharge. Neck: Supple, nontender. No palpable adenopathy or thyromegaly. No JVD Chest: Good effort. Clear to auscultation and percussion. Heart: Regular. No S3, rub or murmur Abdomen: Not distended, soft, diffuse tenderness and no HSM. RLQ urostomy in place. No rebound or guarding. Normal bowel sounds. Ext: Peripheral pulses intact. No leg edema. Skin: Warm and dry. No petechiae, rash or ecchymosis. Neuro: Alert. Oriented to person. CN 2-12 grossly intact. Sensation grossly intact in all four extremities. Mild right hemiparesis. Psych: Appropriate mood and affect. Home Medications Medication Instructions Recorded Insulin NPL/Insulin Lispro 30 unit SQ AM 05/04/13 [Humalog Mix 75-25 Pen] Insulin Lispro Protamin/Lispro 27 unit SQ HS 12/22/16 [Humalog Mix 75-25 Vial] Multivitamins [Multivit ([facility] 1 mg PO DAILY 05/08/17 Formulary)] Omeprazole 40 mg PO BID 05/08/17 Pregabalin [Lyrica -] 50 mg PO TID 05/08/17 Pramipexole Dihydrochloride 0.5 mg PO BID 03/14/18 [Mirapex -] Calcium Carbonate/Vitamin D3 600 mg PO TID 03/15/18 [Calcium 600 + Vit D 400 Softgl] Carbidopa/Levodopa 0.5 each PO TID 09/13/18 [Carbidopa-Levodopa 25-100 Tab] Ascorbate Calcium [Vitamin C] 500 mg PO BID 11/17/18 Baclofen 10 mg PO TID 11/17/18 Brimonidine Tartrate/Timolol 5 ml OU BID 11/17/18 [Combigan 0.2%-0.5% Eye Drops] Docusate Sodium 100 mg PO DAILY 11/17/18 Furosemide [Lasix -] 40 mg PO DAILY 11/17/18 Aspirin Coated [Ecotrin -] 81 mg PO DAILY #30 tablet.ec 11/19/18 Hydrochlorothiazide [Hctz -] 12.5 mg PO DAILY #30 cap 11/19/18 Abnormal Lab Results 11/22/18 11/22/18 11/22/18 19:01 19:01 21:10 MCHC 31.7 L RDW 16.5 H Plt Count 117 L Absolute Neuts (auto) 8.7 H Neutrophils % 88.0 H Lymphocytes % 4.6 L D PT with INR INR Potassium 5.6 H Anion Gap 7 L BUN 38 H Creatinine 2.4 H Random Glucose 229 H Calcium 7.7 L Total Bilirubin 1.4 H AST 53 H Alkaline Phosphatase 143 H Troponin I 0.08 H Albumin 2.5 L Urine Protein 2+ H Urine Ketones Trace H Urine Blood 3+ H Ur Leukocyte Esterase 3+ H 11/22/18 21:10 MCHC RDW Plt Count Absolute Neuts (auto) Neutrophils % Lymphocytes % PT with INR 14.90 H INR 1.26 H Potassium Anion Gap BUN Creatinine Random Glucose Calcium Total Bilirubin AST Alkaline Phosphatase Troponin I Albumin Urine Protein Urine Ketones Urine Blood Ur Leukocyte Esterase ASSESSMENT AND PLAN: 1. Sepsis due to UTI - AMS likely due to toxic metabolic encephalopathy. Based on historical urine culture, will treat with IV Meropenem, adjusted for GFR. Continue IV NS and consult GI for chronic diarrhea. Will send stool studies for ova and parasites as well as C.Diff. No acute abnormality on CXR and Flu swab is negative. No DVT on leg doppler. The side effects of some of her medications may be contributing to her weakness. Will liaise with her PCP to discontinue drugs that are not absolutely essential. Elevated troponin may be due to demand ischemia and CKD. EKG shows sinus tachycardia and T wave inversion in V1 to V4. Will admit to telemetry to rule out ACS, and get ECHO. Elevated LFTs and low platelets may be due to sepsis - will monitor daily. 2. Hypoalbuminemia - Possibly due to combined effects of malnutrition and inflammation associated with comorbid chronic conditions. Rule out proteinuria. Will ensure adequate dietary protein intake and also consult industrial coffee grinder. 3. DM For now, we will hold the home diabetes drugs and implement sliding scale insulin regimen. Provide comprehensive diabetes care with patient teaching and counseling about the importance of adherence to prescribed diabetes regimen, euglycemia, eye care and foot care. 4. CKD - Etiology unclear. 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 IV NS will enhance renal K+ excretion. Will repeat BMP after hydration. Consult nephrology and avoid nephrotoxic agents such as NSAIDS, aminoglycosides, contrast dyes and certain Alternative medicine products. 5. Morbid obesity Counseled on the risks associated with obesity. Will provide patient all the necessary assistance, counseling and positive reinforcement to facilitate weight loss. Consult industrial coffee grinder. 6. Hypertension - Restart outpatient antihypertensive drugs once clinically appropriate. Nonpharmacologic measures to control hypertension like weight loss , salt restriction and exercise discussed. 7. DVT prophylaxis - Heparin 5000u sq tid. 8. Advance directives - Full code
[2018-11-22] MEDS ORDERED: ASPIRIN 81 MG CHEWABLE TABLETS ONE (23:56)
[2018-11-23] MEDS ORDERED: VANCOMYCIN 500 MG in DEXTROSE 5%-WATER 100 ML IVPB ONE (00:50)
--- NOTE | 2018-11-23 01:19 | HP ---
CHIEF COMPLAINT: Lethargy, fever, diarrhea PCP: [facility] HISTORY OF PRESENT ILLNESS: Pt. is a 78 y.o. F presenting with fever to 104.1 measured at home and by EMS, increased lethargy from her baseline and diarrhea. Pt. is accompanied by her daughter (Christiane) who provided the history and confirmed by the Pt. Pt. has been havingg a fever for 1 day associated with decreased PO intake, increased lethargy and chronic diarrhea. Daughter states that her urostomy bag has been having a cloudy discharge that is different from her usual clear yellow urine. Pt. states that the Pt. has been having chronic watery diarrhea 5-6 times per day and has been refusing to take her Loperamide because it makes her constipated. Pt. endorses vomiting 1 time on Monday ( Daughter stakes she was heaved 10 times). Pt. endorse an episode of chest pain which started at rest earlier today that resolved on its own. Daughter endorses a baseline forgetfulness however since Monday she has been more lethargic than usual. Pt.s urostomy tube is changed every 2-3 days by her HANDBAG FRAMER and was last changed yesterday. Daughter states that Pt. has frequent UTIs and has been free from taking antibiotics only a few months out of these last 12 months. Pt. recently had PICC line placed for 14 day course of IV Ceftriaxone at the end of August. Pt. endorses right flank tenderness, per daughter Pt. has been having chronic pain in that area 2/2 shingles. Daughter states Pt. has made her own additional adjustments to her medication regimen. Pt. has been taking Lisinopril despite discontinuation on prior admission, takes Lasix only 2x/ week not daily, and Lyrica BID instead of TID. ER course was notable for: (1)Vancomycin, Ceftriaxone, 2L NS (2)1g Ofirmev, ASA, EKG (3) Recent Travel: No PAST MEDICAL HISTORY: HTN, IDDM, Bladder Ca( s/p radical cystectomy and urostomy placement 2004), SAH(2017-residual right sided weakness and, right sided facial droop with smile), DVTs (s/p IVC Filter, not on AC), CKD, GERD, Parkinson's Disease PAST SURGICAL HISTORY: Left knee Replacement (+2 revisions), CCY(open), Eye surgery for muscle tear, Ectopic w/ tubal ligation Social History: Smoking: Denies, never Alcohol: Denies Drugs: Denies Family History: Mother- @ 71 2[address], DM; Sister-cancer; Father-cancer Allergies latex Allergy (Verified 11/16/18 19:27) HOME MEDICATIONS: Home Medications Medication Instructions Recorded Insulin NPL/Insulin Lispro 30 unit SQ AM 05/04/13 [Humalog Mix 75-25 Pen] Insulin Lispro Protamin/Lispro 27 unit SQ HS 12/22/16 [Humalog Mix 75-25 Vial] Multivitamins [Multivit ([facility] 1 mg PO DAILY 05/08/17 Formulary)] Omeprazole 40 mg PO BID 05/08/17 Pregabalin [Lyrica -] 50 mg PO TID 05/08/17 Pramipexole Dihydrochloride 0.5 mg PO BID 03/14/18 [Mirapex -] Calcium Carbonate/Vitamin D3 600 mg PO TID 03/15/18 [Calcium 600 + Vit D 400 Softgl] Carbidopa/Levodopa 0.5 each PO TID 09/13/18 [Carbidopa-Levodopa 25-100 Tab] Ascorbate Calcium [Vitamin C] 500 mg PO BID 11/17/18 Baclofen 10 mg PO TID 11/17/18 Brimonidine Tartrate/Timolol 5 ml OU BID 11/17/18 [Combigan 0.2%-0.5% Eye Drops] Docusate Sodium 100 mg PO DAILY 11/17/18 Furosemide [Lasix -] 40 mg PO DAILY 11/17/18 Aspirin Coated [Ecotrin -] 81 mg PO DAILY #30 tablet.ec 11/19/18 Hydrochlorothiazide [Hctz -] 12.5 mg PO DAILY #30 cap 11/19/18 REVIEW OF SYSTEMS As per HPI PHYSICAL EXAMINATION Vital Signs - 24 hr 11/22/18 11/22/18 11/22/18 18:15 19:00 20:00 Temperature 103.1 F H Pulse Rate 113 H Pulse Rate [ Apical] Respiratory 16 Rate Blood Pressure 113/57 L Blood Pressure [Left Arm] O2 Sat by Pulse 89 L 98 Oximetry (%) 11/22/18 11/22/18 11/22/18 21:33 22:23 23:09 Temperature 97.9 F Pulse Rate Pulse Rate [ 78 72 Apical] Respiratory 20 20 Rate Blood Pressure Blood Pressure 86/42 L [Left Arm] O2 Sat by Pulse 98 98 Oximetry (%) 11/22/18 11/23/18 23:19 00:29 Temperature Pulse Rate Pulse Rate [ 98 H Apical] Respiratory Rate Blood Pressure Blood Pressure 95/44 L 105/43 L [Left Arm] O2 Sat by Pulse Oximetry (%) GENERAL: Awake, alert, and fully oriented, in no acute distress. HEAD: Normal with no signs of trauma. EYES: Pupils equal, round and reactive to light, unable/delay to gaze left, sclera anicteric, conjunctiva clear, blind in left eye EARS, NOSE, THROAT: Ears normal, nares patent, oropharynx clear without exudates. Moist mucous membranes. NECK: supple, posterior neck mass-nontender to palpation, hyperpigmanted; no JVD , carotid bruit or masses. LUNGS: Mild bibasilar crackles. No accessory muscle use. HEART: Regular rate and rhythm, normal S1 and S2 without murmur ABDOMEN: Soft, diffusely tender to palpation most prominent in RUQ, not distended, normoactive bowel sounds, guarding, urostmy bag present with mild herniation and cloudy dark urine with sedimentation, On AIDE: no frrank blood, internal or external hemorrhoids noted. adequate rectal tone, and formed stool noted on glove. MUSCULOSKELETAL: Right-sided CVA tenderness, no active vesicular lesions. UPPER EXTREMITIES: 2+ radial pulses, warm, well-perfused. No cyanosis. No clubbing. No peripheral edema. 4/5 Right arm strength throughout vs 5/5 strength throughout LOWER EXTREMITIES: 2+ dorsal pedal pulses, warm, well-perfused. Diffuse LE tenderness. No peripheral edema. Unable to lift right leg off bed(4/5 pedal strength, 3/5 thigh strength), lifts left leg off bed for 5> seconds(5/5 strength throughout). NEUROLOGICAL: Normal speech. Gait not assessed. PSYCHIATRIC: Cooperative. Good eye contact. Appropriate mood and affect. SKIN: Warm, dry, normal turgor, no rashes or lesions noted, normal capillary refill. Laboratory Results - last 24 hr 11/22/18 11/22/18 11/22/18 19:01 19: 19:01 WBC 9.9 RBC 3.84 Hgb 10.9 Hct 34.5 MCV 89.9 MCH 28.5 MCHC 31.7 L RDW 16.5 H Plt Count 117 L MPV 10.4 D Absolute Neuts (auto) 8.7 H Neutrophils % 88.0 H Lymphocytes % 4.6 L D Monocytes % 7.1 Eosinophils % 0.0 D Basophils % 0.3 Nucleated RBC % 0 Platelet Estimate Decreased Platelet Comment No clumping noted PT with INR Cancelled INR Cancelled PTT (Actin FS) Cancelled Sodium Potassium Chloride Carbon Dioxide Anion Gap BUN Creatinine Creat Clearance w eGFR Random Glucose Lactic Acid Calcium Total Bilirubin AST ALT Alkaline Phosphatase Troponin I Total Protein Albumin Urine Color Yellow Urine Appearance Turbid Urine pH 5.0 D Ur Specific [place] 1.012 Urine Protein 2+ H Urine Glucose (UA) Negative Urine Ketones Trace H Urine Blood 3+ H Urine Nitrite Negative Urine Bilirubin Negative Urine Urobilinogen 0.2 Ur Leukocyte Esterase 3+ H Urine WBC (Auto) 646 Urine RBC (Auto) 27 Urine Casts (Auto) 33 U Pathogenic Cast Auto 25 U Epithel Cells (Auto) 2.0 Urine Bacteria (Auto) 4685.4 Influenza A (Rapid) Influenza B (Rapid) 11/22/18 11/22/18 11/22/18 19:01 19:01 20:01 WBC RBC Hgb Hct MCV MCH MCHC RDW Plt Count MPV Absolute Neuts (auto) Neutrophils % Lymphocytes % Monocytes % Eosinophils % Basophils % Nucleated RBC % Platelet Estimate Platelet Comment PT with INR INR PTT (Actin FS) Sodium Cancelled Potassium Cancelled Chloride Cancelled Carbon Dioxide Cancelled Anion Gap Cancelled BUN Cancelled Creatinine Cancelled Creat Clearance w eGFR Cancelled Random Glucose Cancelled Lactic Acid 1.5 Calcium Cancelled Total Bilirubin Cancelled AST Cancelled ALT Cancelled Alkaline Phosphatase Cancelled Troponin I Cancelled Total Protein Cancelled Albumin Cancelled Urine Color Urine Appearance Urine pH Ur Specific [place] Urine Protein Urine Glucose (UA) Urine Ketones Urine Blood Urine Nitrite Urine Bilirubin Urine Urobilinogen Ur Leukocyte Esterase Urine WBC (Auto) Urine RBC (Auto) Urine Casts (Auto) U Pathogenic Cast Auto U Epithel Cells (Auto) Urine Bacteria (Auto) Influenza A (Rapid) Negative Influenza B (Rapid) Negative 11/22/18 11/22/18 21:10 21:10 WBC RBC Hgb Hct MCV MCH MCHC RDW Plt Count MPV Absolute Neuts (auto) Neutrophils % Lymphocytes % Monocytes % Eosinophils % Basophils % Nucleated RBC % Platelet Estimate Platelet Comment PT with INR 14.90 H INR 1.26 H PTT (Actin FS) 36.3 Sodium 136 Potassium 5.6 H Chloride 104 Carbon Dioxide 26 Anion Gap 7 L BUN 38 H Creatinine 2.4 H Creat Clearance w eGFR 19.47 Random Glucose 229 H Lactic Acid Calcium 7.7 L Total Bilirubin 1.4 H AST 53 H ALT 21 Alkaline Phosphatase 143 H Troponin I 0.08 H Total Protein 6.6 Albumin 2.5 L Urine Color Urine Appearance Urine pH Ur Specific [place] Urine Protein Urine Glucose (UA) Urine Ketones Urine Blood Urine Nitrite Urine Bilirubin Urine Urobilinogen Ur Leukocyte Esterase Urine WBC (Auto) Urine RBC (Auto) Urine Casts (Auto) U Pathogenic Cast Auto U Epithel Cells (Auto) Urine Bacteria (Auto) Influenza A (Rapid) Influenza B (Rapid) ASSESSMENT/PLAN: Pt. is a 78 y.o. F w/ PMHx. of IDDM, HTN, SAH, Bladder Ca, GERD, CKD, and Parkinson's presenting with fever to 104.1 measured at home and by EMS, increased lethargy from her baseline and diarrhea. Physical Exam significant for R. CVA tenderness, residual R. sided weakness, cloudy sedimented urine, fever and AMS. Labs/Imaging significant for positive UA and mildly elevated Troponin. #Sepsis 2/2 Complicated Pyelonephritis likely 2/2 ileal conduit UA+ 2+ protein, trace ketones, 3+ blood, 646 WBCs Will c/w Vancomycin 1,500mg and Merrem 500mg TID- adjusted for Cr.Cl and Weight , given Hx. of MDR organisms and severity of illness ID consult (Dr. Fulton) appreciated) May need to consult Urology for Urostomy bag change in 24-48 hours Renal US 11/19/18- unremarkable CXR- blunting of CDA R>L per my read, mildly increased prominence of pulmonary vasculature Flu - #Diarrhea- likely 2/2 Ileal conduit Has not had BM since ED arrival AIDE has formed stool on glove low suspicion for C. Diff given above, however f/u CDiff Ag. and Stool Ova and Parasites TBili: elevated at 1.4 would consider RUQ US if T.Bili trending up and/or RUQ abdominal pain persists/ worsens for biliary obstruction Pt. is s/p CCY GI consult (Dr. Blount) appreciated #NATASHA on CKD Cr. increased to 2.4 from baseline of ~1.5 BUN elevated to 38 Partially attributable to hypotension 2/2 sepsis f/u AM CMP but cannot r/o RTA type 4 (aldosterone resistance) involvment given Hx. of IDDM, ERENDIRA, Diuretic and PRN Tylenol use at home. Would give IVF liberally and monitor chemistry closely. Low threshold to consult Nephrology (Dr. Maya has seen her in the past ) Pt. denies taking Baclofen at home #Troponemia Trop 0.08; f/u Rpt. EKG shows TWI in leads V1-V3 which has changed since last EKG, f/u Rpt. EKG likely due to demand ischemia 2/2 sepsis and hypotension Stress Test (11/19/18)- inferolateral and lateral reversible defect, with mild ischemia, nml LVEF 59% Catherization declined by family at that time #FEN NS @ 100ml/hr (limit 1 bag), Received 2L NS in ED monitor electrolyte and replete as needed, hyperkalemia to 5.6 noted Na+ restricted/Diabetic Diet #DVT Ppx. Heparin 5k SQ TID Visit type - Emergency Visit Emergency Visit: Yes ED Registration Date: 11/22/18 Care time: The patient presented to the Emergency Department on the above date and was hospitalized for further evaluation of their emergent condition. - New Patient This patient is new to me today: Yes Date on this admission: 11/22/18 - Critical Care Critical Care patient: No
[2018-11-23] MEDS ORDERED: VANCOMYCIN 500 MG VIAL (RESTRICTED TO ID ONLY) ONE (01:20)
[2018-11-23] MEDS ORDERED: DEXTROSE 5%-WATER 100 ML IVPB ONE (01:20)
[2018-11-23] MEDS ORDERED: MORPHINE SULFATE 2 MG/ML VIAL IVPUSH ONE (01:23)
[2018-11-23] MEDS ORDERED: SODIUM CHLORIDE 1,000 ML IV SCH (01:30)
[2018-11-23] MEDS ORDERED: MEROPENEM 500 MG in DEXTROSE 5%-WATER 100 ML IVPB SCH (02:00)
[2018-11-23] MEDS: MEROPENEM 500 MG in DEXTROSE 5%-WATER 100 ML IVPB SCH ×3 (02:46→18:04)
[2018-11-23] MEDS ORDERED: ACETAMINOPHEN 1000 MG/100 ML VIAL (NON FORMULARY) IVPB ONE ×2 (03:30→18:29)
[2018-11-23] MEDS: HEPARIN NA (PORCINE) 5,000 UNITS/ML 1ML VIAL SQ SCH ×2 (06:33→13:02)
[2018-11-23] MEDS: INSULIN SLIDING SCALE (NOVOLOG) 1 VIAL SQ SCH ×3 (06:33→16:41)
[2018-11-23 08:17] LABS: BASO % 0.1 % (0-2.0); HEMATOCRIT 31.4 % (32.4-45.2); HEMOGLOBIN 10.2 GM/dL (10.7-15.3); LYMPH % 4.6 % (8-40); MCH 28.6 pg (25.7-33.7); MCHC 32.3 g/dl (32.0-36.0); MEAN CELL VOLUME 88.6 fl (80-96); MEAN PLT VOLUME 10.9 fl (7.5-11.1); MONO % 6.2 % (3.8-10.2); NEUT % 89.1 % (42.8-82.8); PLATELET COUNT 110 K/MM3 (134-434); RBC 3.55 M/mm3 (3.60-5.2); RDW 15.9 % (11.6-15.6); WHITE BLOOD COUNT 10.2 K/mm3 (4.0-10.0)
[2018-11-23 08:24] LABS: ALBUMIN 2.6 g/dl (3.4-5.0); ALK PHOS 147 U/L (45-117); ANION GAP 10 MMOL/L (8-16); BILIRUBIN,TOTAL 1.3 mg/dL (0.2-1); BLOOD UREA NITROGEN 38 mg/dL (7-18); CALCIUM 7.4 mg/dL (8.5-10.1); CHLORIDE 108 mmol/L (98-107); CO2 23 mmol/L (21-32); CREATININE 2.6 mg/dL (0.55-1.3); GLUCOSE,RANDOM 233 mg/dL (74-106); MAGNESIUM 1.7 mg/dL (1.8-2.4); POTASSIUM 3.6 mmol/L (3.5-5.1); SGOT/AST 27 U/L (15-37); SGPT/ALT 18 U/L (13-61); SODIUM 141 mmol/L (136-145); TOT PROT 6.1 g/dl (6.4-8.2)
[2018-11-23] MEDS ORDERED: PT OWN MED DRAWER 7, Y5N ONE ×2 (08:46→17:07)
[2018-11-23] MEDS: SODIUM CHLORIDE 1,000 ML IV SCH (09:41)
--- NOTE | 2018-11-23 10:03 | PN ---
Physical Exam: SUBJECTIVE: Patient seen and examined at bedside. Resting in bed. C/o multiple episodes of diarrhea. Also endorsed CP earlier in am. None currently. OBJECTIVE: Vital Signs Period Temp Pulse Resp BP Sys/Adorno Pulse Ox Last 24 Hr 97.9 F-104.1 F 72-129 16-22 86-132/42-57 89-98 GENERAL: AAOx3 No acute distress HEAD: Atraumatic/Normocephalic EYES: EOMI Sclera Clear ENT: MMM NECK: Trachea midline, full range of motion, supple. LUNGS: Crackles at bases HEART: RRR nl S1S2 ABDOMEN: Urostomy bag with clear urine. Nondistended. Obese. LLQ pain EXTREMITIES: Onychomycosis b/l feet. NEUROLOGICAL: Cranial nerves II through XII grossly intact. PSYCH: Normal mood, normal affect. Laboratory Results - last 24 hr 11/22/18 11/22/18 11/22/18 19:01 19:01 19:01 WBC 9.9 RBC 3.84 Hgb 10.9 Hct 34.5 MCV 89.9 MCH 28.5 MCHC 31.7 L RDW 16.5 H Plt Count 117 L MPV 10.4 D Absolute Neuts (auto) 8.7 H Neutrophils % 88.0 H Lymphocytes % 4.6 L D Monocytes % 7.1 Eosinophils % 0.0 D Basophils % 0.3 Nucleated RBC % 0 Platelet Estimate Decreased Platelet Comment No clumping noted PT with INR Cancelled INR Cancelled PTT (Actin FS) Cancelled Sodium Potassium Chloride Carbon Dioxide Anion Gap BUN Creatinine Creat Clearance w eGFR POC Glucometer Random Glucose Lactic Acid Calcium Magnesium Total Bilirubin AST ALT Alkaline Phosphatase Troponin I Total Protein Albumin Urine Color Yellow Urine Appearance Turbid Urine pH 5.0 D Ur Specific [place] 1.012 Urine Protein 2+ H Urine Glucose (UA) Negative Urine Ketones Trace H Urine Blood 3+ H Urine Nitrite Negative Urine Bilirubin Negative Urine Urobilinogen 0.2 Ur Leukocyte Esterase 3+ H Urine WBC (Auto) 646 Urine RBC (Auto) 27 Urine Casts (Auto) 33 U Pathogenic Cast Auto 25 U Epithel Cells (Auto) 2.0 Urine Bacteria (Auto) 4685.4 Stool Occult Blood Influenza A (Rapid) Influenza B (Rapid) 11/22/18 11/22/18 11/22/18 19:01 19:01 20:01 WBC RBC Hgb Hct MCV MCH MCHC RDW Plt Count MPV Absolute Neuts (auto) Neutrophils % Lymphocytes % Monocytes % Eosinophils % Basophils % Nucleated RBC % Platelet Estimate Platelet Comment PT with INR INR PTT (Actin FS) Sodium Cancelled Potassium Cancelled Chloride Cancelled Carbon Dioxide Cancelled Anion Gap Cancelled BUN Cancelled Creatinine Cancelled Creat Clearance w eGFR Cancelled POC Glucometer Random Glucose Cancelled Lactic Acid 1.5 Calcium Cancelled Magnesium Total Bilirubin Cancelled AST Cancelled ALT Cancelled Alkaline Phosphatase Cancelled Troponin I Cancelled Total Protein Cancelled Albumin Cancelled Urine Color Urine Appearance Urine pH Ur Specific [place] Urine Protein Urine Glucose (UA) Urine Ketones Urine Blood Urine Nitrite Urine Bilirubin Urine Urobilinogen Ur Leukocyte Esterase Urine WBC (Auto) Urine RBC (Auto) Urine Casts (Auto) U Pathogenic Cast Auto U Epithel Cells (Auto) Urine Bacteria (Auto) Stool Occult Blood Influenza A (Rapid) Negative Influenza B (Rapid) Negative 11/22/18 11/22/18 11/23/18 21:10 21:10 04:15 WBC RBC Hgb Hct MCV MCH MCHC RDW Plt Count MPV Absolute Neuts (auto) Neutrophils % Lymphocytes % Monocytes % Eosinophils % Basophils % Nucleated RBC % Platelet Estimate Platelet Comment PT with INR 14.90 H INR 1.26 H PTT (Actin FS) 36.3 Sodium 136 Potassium 5.6 H Chloride 104 Carbon Dioxide 26 Anion Gap 7 L BUN 38 H Creatinine 2.4 H Creat Clearance w eGFR 19.47 POC Glucometer Random Glucose 229 H Lactic Acid Calcium 7.7 L Magnesium Total Bilirubin 1.4 H AST 53 H ALT 21 Alkaline Phosphatase 143 H Troponin I 0.08 H Total Protein 6.6 Albumin 2.5 L Urine Color Urine Appearance Urine pH Ur Specific [place] Urine Protein Urine Glucose (UA) Urine Ketones Urine Blood Urine Nitrite Urine Bilirubin Urine Urobilinogen Ur Leukocyte Esterase Urine WBC (Auto) Urine RBC (Auto) Urine Casts (Auto) U Pathogenic Cast Auto U Epithel Cells (Auto) Urine Bacteria (Auto) Stool Occult Blood Negative Influenza A (Rapid) Influenza B (Rapid) 11/23/18 11/23/18 11/23/18 05:21 07:00 07:00 WBC 10.2 H RBC 3.55 L Hgb 10.2 L Hct 31.4 L MCV 88.6 MCH 28.6 MCHC 32.3 RDW 15.9 H Plt Count 110 L MPV 10.9 Absolute Neuts (auto) 9.1 H Neutrophils % 89.1 H Lymphocytes % 4.6 L Monocytes % 6.2 Eosinophils % 0.0 Basophils % 0.1 Nucleated RBC % 0 Platelet Estimate Platelet Comment PT with INR INR PTT (Actin FS) Sodium 141 Potassium 3.6 Chloride 108 H Carbon Dioxide 23 Anion Gap 10 BUN 38 H Creatinine 2.6 H Creat Clearance w eGFR 17.76 POC Glucometer 215 Random Glucose 233 H Lactic Acid Calcium 7.4 L Magnesium 1.7 L Total Bilirubin 1.3 H AST 27 ALT 18 Alkaline Phosphatase 147 H Troponin I Total Protein 6.1 L Albumin 2.6 L Urine Color Urine Appearance Urine pH Ur Specific [place] Urine Protein Urine Glucose (UA) Urine Ketones Urine Blood Urine Nitrite Urine Bilirubin Urine Urobilinogen Ur Leukocyte Esterase Urine WBC (Auto) Urine RBC (Auto) Urine Casts (Auto) U Pathogenic Cast Auto U Epithel Cells (Auto) Urine Bacteria (Auto) Stool Occult Blood Influenza A (Rapid) Influenza B (Rapid) Active Medications Generic Name Dose Route Start Last Admin Trade Name Freq PRN Reason Stop Dose Admin Heparin Sodium (Porcine) 5,000 unit 11/23/18 06:00 11/23/18 06:33 Heparin - SQ 5,000 unit TID GLORIA Administration Meropenem 500 mg/ Dextrose 100 mls @ 200 mls/hr 11/23/18 02:00 IVPB Q8H-IV GLORIA Meropenem 500 mg/ Dextrose 100 mls @ 200 mls/hr 11/23/18 02:00 11/23/18 09:42 IVPB 11/23/18 18:29 200 mls/hr Q8H-IV GLORIA Administration Sodium Chloride 1,000 mls @ 75 mls/hr 11/23/18 08:15 11/23/18 09:41 Normal Saline - IV Not Given ASDIR GLORIA Insulin Aspart 1 vial 11/23/18 07:00 11/23/18 06:33 Novolog Vial Sliding Scale - SQ 4 units TIDAC GLORIA Administration Protocol ASSESSMENT/PLAN: Pt. is a 78 y/o. F w/ PMHx. of IDDM, HTN, SAH, Bladder Ca, GERD, CKD, and Parkinson's presenting with fever to 104.1 measured at home and by EMS, increased lethargy from her baseline and diarrhea. #Sepsis: VS GI source UA+ 2+ protein, trace ketones, 3+ blood, 646 WBCs On Vanco and Ertapenem. Previous UCx ESBL and MRSA ID Consult Renal US 11/19/18- unremarkable CXRAY--> no sign of acute process CTAP---> In comparison to an exam of 09/13/2018 development of mild bilateral hydroureteronephrosis is noted. Development of left perirenal soft tissue stranding is seen as well as thickening of the left anterior and posterior para renal fascia possibly secondary to acute hydronephrosis. Correlate clinically in regards to the possibility of superimposed acute pyelonephritis. As on the prior study the patient is status post radical cystectomy with an ileal conduit #Diarrhea possibly 2/2 C Diff f/u C Diff Ag. and Stool Ova and Parasites GI on board #NATASHA on CKD Cr. 2.4 Cr in August was 6.0. Continue to trend. Repeat BMP in AM #Troponemia Trop 0.08; repeat 0.010, 3rd trop 0.08 EKG shows TWI in leads V1-V3 which has changed since last EKG, f/u Rpt. EKG likely due to demand ischemia 2/2 sepsis and hypotension Stress Test (11/19/18)- inferolateral and lateral reversible defect, with mild ischemia, nml LVEF 59% #FEN NS @ 75cc/hr Monitor Electrolytes Low Salt/Diabetic Diet #DVT ppx. HEPSQTID Visit type - Emergency Visit Emergency Visit: Yes ED Registration Date: 11/22/18 Care time: The patient presented to the Emergency Department on the above date and was hospitalized for further evaluation of their emergent condition. - New Patient This patient is new to me today: Yes Date on this admission: 11/23/18 - Critical Care Critical Care patient: No - Discharge Referral Referred to [facility] Med P.C.: No
[2018-11-23 10:25] LABS: BILIRUBIN,DIRECT 0.5 mg/dL (0.0-0.2)
--- NOTE | 2018-11-23 11:13 | CON.GI ---
Consult Consult Specialty:: GI Referred by:: Hospitalist service Reason for Consultation:: diarrhea - History of Present Illness Chief Complaint: "My stomach doesn't feel right" History of Present Illness: 78F admitted through ER for evaluation of diarrhea and lethargy. When I askes Ms. Acuña what her main complaint was, she stated that it was that her "belly doesn't feel right. She points towards her left abdomen when asked where her pain is located. Temp 104 described at home. She currently complains of feeling cold and has chills. She is rigoring. - History Source History Provided By: Medical Record Limitations to Obtaining History: Poor Historian - Past Medical History Cardio/Vascular: Yes: AFIB, HTN Gastrointestinal: Yes: GERD Hepatobiliary: Yes: Cholecystitis Renal/: Yes: Cancer (Bladder cancer) Heme/Onc: Yes: Other (DVT) Musculoskeletal: Yes: Osteoarthritis - Past Surgical History Past Surgical History: Yes: Cholecystectomy (open), Ileal Conduit, Joint Replacement (R knee) Additional Surgical History: surgery secondary to miscarriage, IVC filter - Alcohol/Substance Use Hx Alcohol Use: No History of Substance Use: reports: None - Smoking History Smoking history: Never smoked Have you smoked in the past 12 months: No Aproximately how many cigarettes per day: 0 - Social History Place of : [facility] Home Medications - Allergies Allergies/Adverse Reactions: Allergies Allergy/AdvReac Type Severity Reaction Status Date / Time latex Allergy Verified 11/16/18 19:27 - Home Medications Home Medications: Ambulatory Orders Insulin NPL/Insulin Lispro [Humalog Mix 75-25 Pen] 30 unit SQ AM 05/04/13 Insulin Lispro Protamin/Lispro [Humalog Mix 75-25 Vial] 27 unit SQ HS 12/22/16 Multivitamins [Multivit ([facility] Formulary)] 1 mg PO DAILY 05/08/17 Omeprazole 40 mg PO BID 05/08/17 Pregabalin [Lyrica -] 50 mg PO TID 05/08/17 Pramipexole Dihydrochloride [Mirapex -] 0.5 mg PO BID 03/14/18 Calcium Carbonate/Vitamin D3 [Calcium 600 + Vit D 400 Softgl] 600 mg PO TID Carbidopa/Levodopa [Carbidopa-Levodopa 25-100 Tab] 0.5 each PO TID 09/13/18 Ascorbate Calcium [Vitamin C] 500 mg PO BID 11/17/18 Baclofen 10 mg PO TID 11/17/18 Brimonidine Tartrate/Timolol [Combigan 0.2%-0.5% Eye Drops] 5 ml OU BID Docusate Sodium 100 mg PO DAILY 11/17/18 Furosemide [Lasix -] 40 mg PO DAILY 11/17/18 Aspirin Coated [Ecotrin -] 81 mg PO DAILY #30 tablet.ec 11/19/18 Hydrochlorothiazide [Hctz -] 12.5 mg PO DAILY #30 cap 11/19/18 Family Disease History - Family Disease History Other Family History: No family history of colorectal cancer Review of Systems - Review of Systems Constitutional: reports: Fever Cardiovascular: denies: Chest Pain Respiratory: denies: Cough Gastrointestinal: reports: Abdominal Pain, Diarrhea. denies: Melena, Rectal Bleeding Physical Exam-GI Vital Signs: Vital Signs Temperature 102.5 F 11/23/18 1100 Pulse Rate 129 11/23/18 1100 Respiratory Rate 20 11/23/18 1100 Blood Pressure 145/73 11/23/18 1100 O2 Sat by Pulse Oximetry (%) 11/23/18 01:30 Constitutional: Yes: Calm Eyes: No: Sclera Icterus Cardiovascular: Yes: Tachycardia (regular rhythm). No: Murmur Respiratory: Yes: Diminished (at bases bilaterally with poor inspiratory effort) Gastrointestinal Inspection: Yes: Scars (Long oblique RUQ scar), Other (Ileal conduit in right abdomen/pelvis) ...Auscultate: Yes: Normoactive Bowel Sounds ...Palpate: Yes: Soft, Tenderness (TTP mid abdomen, left abdomen, LLQ). No: Guarding, Tenderness, Rebound ...Rectal Exam: Yes: Other (Care Analyst present: no external lesions, no mases, scant loose brown stool, guaiac negative) Extremities: Yes: Other (TTP right knee) Edema: Yes (right knee) Neurological: Yes: Alert Labs: CBC, BMP 11/23/18 07:00 11/23/18 07:00 INR, PTT INR 1.26 (0.83-1.09) H 11/22/18 21:10 Hepatic Panel Total Bilirubin 1.3 mg/dL (0.2-1) H 11/23/18 07:00 Direct Bilirubin 0.5 mg/dL (0.0-0.2) H 11/23/18 07:00 AST 27 U/L (15-37) 11/23/18 07:00 ALT 18 U/L (13-61) 11/23/18 07:00 Alkaline Phosphatase 147 U/L (45-117) H 11/23/18 07:00 Albumin 2.6 g/dl (3.4-5.0) L 11/23/18 07:00 Problem List - Problems (1) Abdominal pain Assessment/Plan: Predominantly left sided, mid abdomen as well Advise: NPO in setting of unexplained abdominal pain and fevers IV Hydration / IV Abx per primary team CT scan of the abdomen and pelvis with PO contrast ordered Ordered stat amylase/lipase Code(s): R10.9 - UNSPECIFIED ABDOMINAL PAIN Qualifiers: Abdominal location: generalized Qualified Code(s): R10.84 - Generalized abdominal pain (2) Diarrhea Assessment/Plan: Stool for C. Diff given recent hospital admissions In setting of fevers, abdominal pain, age, renal insufficiency, would cover empirically with PO Vanco until C. Diff ruled out Stool for culture, O&P Code(s): R19.7 - DIARRHEA, UNSPECIFIED (3) Fever and chills Assessment/Plan: Excluding GI source Being treated for UTI Patient with hardware in right knee and describes increased pain of late. No flutuance noted on exam however more prominent than left knee. doubtful but if no continued improvement Consider excluding as a potential source of infection Code(s): R50.9 - FEVER, UNSPECIFIED
[2018-11-23] MEDS ORDERED: ACETAMINOPHEN 325 MG TABLET (FP) PO ONE ×2 (11:22→16:25)
--- NOTE | 2018-11-23 11:28 | CONS ---
DATE OF CONSULTATION: DATE OF DICTATION: 11/23/2018 HISTORY OF PRESENT ILLNESS: Patient is a 78-year-old female well known to me with history of bladder cancer. She is status post a radical cystectomy and ileal conduit. 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 She has undergone an IVC filter placement. She does have history of chronic kidney disease. She is complaining of pain radiating down her left arm. She also states that she is short of breath. She denies any previous cardiac history. Her radical cystectomy was performed in 2006, and a CT of her abdomen and pelvis at the end of 2018 was negative for metastatic disease. She does have history of high blood pressure and some dementia. She denies any ethanolism, tobacco. She has undergone right knee surgery several times, cholecystectomy, a radical cystectomy with an ileal conduit and placement of an IVC filter. Presently, she is afebrile. Her BUN and creatinine are stable. MEDICATIONS: She is on multiple medications. PHYSICAL EXAMINATION: Vital Signs: She has been afebrile for the past 48 hours. Abdomen: Soft. Her ileal conduit is pink and patent. Urine is clean. PLAN: Will recommend urine culture and sensitivity and an ultrasound of the kidneys to make sure there is no obstruction. If we find hydroureteronephrosis, will need an ileoscopy as well as an ileogram. Will follow with you. RAGHU HERRERA M.D. [id number]
--- NOTE | 2018-11-23 12:24 | EKG ---
Test Reason : Blood Pressure : / mmHG Vent. Rate : 111 BPM Atrial Rate : 111 BPM P-R Int : 138 ms QRS Dur : 122 ms QT Int : 354 ms P-R-T Axes : 058 -58 038 degrees QTc Int : 481 ms SINUS TACHYCARDIA RIGHT BUNDLE BRANCH BLOCK LEFT ANTERIOR FASCICULAR BLOCK BIFASCICULAR BLOCK POSSIBLE LATERAL INFARCT , AGE UNDETERMINED ABNORMAL ECG WHEN COMPARED WITH ECG OF 16-NOV-2018 20:24, VENT. RATE HAS INCREASED BY 47 BPM (RBBB AND LEFT ANTERIOR FASCICULAR BLOCK) IS NOW PRESENT BORDERLINE CRITERIA FOR LATERAL INFARCT ARE NOW PRESENT Confirmed by JOHN BELLAMY, RICARDO ([id number]) on 11/23/2018 12:24:14 PM Referred By: Confirmed By:RICARDO LOPEZ MD
[2018-11-23] MEDS: VANCOMYCIN 250 MG/5 ML ORAL SOLUTION PO SCH ×2 (12:57→18:03)
--- NOTE | 2018-11-23 15:40 | PN ---
Teaching Attending Note Name of Resident: Nichole Dorman ATTENDING PHYSICIAN STATEMENT I saw and evaluated the patient. I reviewed the resident's note and discussed the case with the resident. I agree with the resident's findings and plan as documented. SUBJECTIVE: contto have fever . reports chronic diarrhea which worsened in past couple of days. she has chronic LLQ pain. vomited at home once. not sure if she has blood in her stool. in ER she developed CP that radiated to L shoulder and arm . OBJECTIVE: NAD, awake, alert.cooperative HEENT: MMM. CV: RRR, 2/6 Sm at base Lungs: CTAB Abd: obese, soft, mild tenderness in all quadrants especially LLQ . yellow urine in collecting bag, . umbilical hernia .NL BS Ext: no edema or eryehtema. surgical scar on anterior R knee. Skin: no decub ulcers on sacral or gluteal areas ASSESSMENT AND PLAN: 77 y/o lady with h/o HTN, DM, Bladder cancer s/p ileal conduit, SBO, abd wall hernias, SAH,salmonella enteritis and bacteremia, + stress test , CKD ( Cr base line 1.5 ) , DVTs and IVC filter who presented with fever,AMS and diarrhea . 1- Sepsis: suspected source is urine VS GI. no decub ulcers or skin lesions/ cellulitis. No infiltrate on cxray and no clinical signs of PNA . - follow CT scan - previous urine cx reviewed. MRSA and ESBL noted - cont Meropenem and po vanco pending IV eval. - send stool cx. c diff pending . - follow blood cx . - tylenol for fever - US or RUQ given LLFTS abn. has h/o CCY 2- L sided CP: convincing story for ACS. last admisison stress test on 11/19 showed lateralreversible ischemia. patient was started on aspiringnad dc home after family elected for no cath. but painhas recurred. elevated trop could be due to NATASHA this time. - start asa - recall card, to revaluate considering her recurrent CP. cath vs imdur or ranexa 3- NATASHA on CKD : due to volume depletion in setting of worsening chronic diarrhea and fever while on lasix and HCTZ - IV hydration - hold lasix - follow renal function 4- DM : on humolog 75/25 at home. will do SSI now, if needed can start insulin 70/30 or Levemir with SSI 5- HTN: hold lasix and HCTZ 6- parkinson's resume CArbidopa/Levo dopa DVT Px : heparin sq
[2018-11-23] MEDS: ERTAPENEM SODIUM 1 GM in SODIUM CHLORIDE 50 ML IVPB SCH (20:53)
[2018-11-24] MEDS: HEPARIN NA (PORCINE) 5,000 UNITS/ML 1ML VIAL SQ SCH ×4 (00:25→21:02)
[2018-11-24] MEDS: PREGABALIN 50 MG CAPSULE PO SCH ×4 (00:25→21:02)
[2018-11-24] MEDS: CARBIDOPA/LEVODOPA 25/100 TABLET (FP) PO SCH ×4 (00:25→21:03)
[2018-11-24] MEDS: VANCOMYCIN 250 MG/5 ML ORAL SOLUTION PO SCH ×5 (00:25→23:28)
[2018-11-24] MEDS: INSULIN SLIDING SCALE (NOVOLOG) 1 VIAL SQ SCH ×3 (06:36→17:28)
[2018-11-24 07:21] LABS: BASO % 0.2 % (0-2.0); EOS % 0.1 % (0-4.5); HEMATOCRIT 29.5 % (32.4-45.2); HEMOGLOBIN 9.4 GM/dL (10.7-15.3); LYMPH % 7.1 % (8-40); MCH 28.6 pg (25.7-33.7); MCHC 31.9 g/dl (32.0-36.0); MEAN CELL VOLUME 89.6 fl (80-96); MEAN PLT VOLUME 10.9 fl (7.5-11.1); MONO % 7.2 % (3.8-10.2); NEUT % 85.4 % (42.8-82.8); PLATELET COUNT 89 K/MM3 (134-434); RBC 3.29 M/mm3 (3.60-5.2); RDW 16.3 % (11.6-15.6); WHITE BLOOD COUNT 8.2 K/mm3 (4.0-10.0)
[2018-11-24 07:35] LABS: ALBUMIN 2.2 g/dl (3.4-5.0); ALK PHOS 125 U/L (45-117); ANION GAP 10 MMOL/L (8-16); BILIRUBIN,DIRECT 0.3 mg/dL (0.0-0.2); BILIRUBIN,TOTAL 0.6 mg/dL (0.2-1); BLOOD UREA NITROGEN 30 mg/dL (7-18); CHLORIDE 112 mmol/L (98-107); CO2 22 mmol/L (21-32); CREATININE 2.1 mg/dL (0.55-1.3); GLUCOSE,RANDOM 219 mg/dL (74-106); MAGNESIUM 1.6 mg/dL (1.8-2.4); PHOSPHOROUS 2.3 mg/dL (2.5-4.9); POTASSIUM 3.5 mmol/L (3.5-5.1); SGOT/AST 30 U/L (15-37); SGPT/ALT 8 U/L (13-61); SODIUM 144 mmol/L (136-145); TOT PROT 5.5 g/dl (6.4-8.2)
[2018-11-24 07:45] LABS: CALCIUM 6.9 mg/dL (8.5-10.1)
[2018-11-24] MEDS ORDERED: MAGNESIUM SULF 50% (8.12 MEQ/2 ML-1 GM VIAL) IVPB ONE (07:48)
[2018-11-24] MEDS ORDERED: POTASSIUM PHOSPHATE 30 MM in SODIUM CHLORIDE 250 ML IVPB ONE (07:49)
[2018-11-24] MEDS ORDERED: CALCIUM GLUCONATE 10% - 1,000 MG/10 ML VIAL IVPB ONE (07:50)
[2018-11-24] MEDS ORDERED: ACETAMINOPHEN 1000 MG/100 ML VIAL (NON FORMULARY) IVPB PRN (07:51)
[2018-11-24] MEDS ORDERED: PT OWN MED DRAWER 7, Y5N ONE ×5 (09:35→20:58)
[2018-11-24] MEDS: ASPIRIN COATED 81 MG TABLET.EC PO SCH (09:49)
[2018-11-24] MEDS: SODIUM CHLORIDE 1,000 ML IV SCH ×2 (09:52→21:02)
[2018-11-24] MEDS: ERTAPENEM SODIUM 1 GM in SODIUM CHLORIDE 50 ML IVPB SCH (10:58)
--- NOTE | 2018-11-24 11:26 | EKG ---
Test Reason : Blood Pressure : / mmHG Vent. Rate : 086 BPM Atrial Rate : 086 BPM P-R Int : 138 ms QRS Dur : 128 ms QT Int : 390 ms P-R-T Axes : 058 -40 029 degrees QTc Int : 466 ms NORMAL SINUS RHYTHM LEFT AXIS DEVIATION RIGHT BUNDLE BRANCH BLOCK ABNORMAL ECG WHEN COMPARED WITH ECG OF 22-NOV-2018 18:31, BORDERLINE CRITERIA FOR LATERAL INFARCT ARE NO LONGER PRESENT Confirmed by ANKIT BELLAMY, SUSIE ([id number]) on 11/24/2018 11:26:26 AM Referred By: Domenic QUEZADA Confirmed By:SUSIE PHAM MD
[2018-11-24] MEDS: RANITIDINE HCL 150 MG TABLET (FP) PO SCH (11:44)
--- NOTE | 2018-11-24 13:35 | PN ---
Teaching Attending Note Name of Resident: Valentin Willett ATTENDING PHYSICIAN STATEMENT I saw and evaluated the patient. I reviewed the resident's note and discussed the case with the resident. I agree with the resident's findings and plan as documented. SUBJECTIVE: fever all night. No MASON , no visual changes. cont to have LLQ pain. no diarrhea. no N/V. did not sleep last night. epigastric pain this am . uses omeprazole at home. pain feels like her GERD OBJECTIVE: NAD, awake, alert. cooperative HEENT: MMM. CV: RRR, 2/6 Sm at base Lungs: CTAB Abd: obese, soft, mild tenderness in all quadrants especially LLQ . yellow urine with sediment in collecting bag. umbilical hernia .NL BS Ext: no edema or eryehtema. surgical scar on anterior R knee. MS: TTP all over her body ( legs, knees, thighs, shoulders, arms,,,,) ASSESSMENT AND PLAN: 77 y/o lady with h/o HTN, DM, Bladder cancer s/p ileal conduit, SBO, abd wall hernias, SAH,salmonella enteritis and bacteremia, + stress test , CKD ( Cr base line 1.5),` DVTs and IVC filter who presented with fever,AMS and diarrhea . 1- Sepsis: due to pyelnephritis. urine cx with 3 organisms, . - d/w ID possible change abx to meropenem due to non lactose fermenting bacteria - follow blood cx . Neg to date - Ct with b/l hydro ( new ). consult urology 2- worsening chronic diarrhea: now resolved. no BM since admission. -d/w GI the need for po vanco - stool cx and c diff if diarrhea recurs 3- L sided CP: typical chest pain. + stress test 11/19 with reversible lateral ischemia. Cath was declined by family then. - cont asa - recall card, to revaluate considering her recurrent CP. cath vs imdur or ranexa - repeated EKG this am. 4- NATASHA on CKD : due to volume depletion in setting of worsening chronic diarrhea and fever while on lasix and HCTZ - IV hydration - hold diuretics 4- DM : on humolog 75/25 at home. will do SSI now, if needed can start insulin 70/30 or Levemir with SSI 5- HTN: hold lasix and HCTZ 6- parkinson's : cont CArbidopa/Levo dopa 7- replete electrolytes DVT Px : heparin sq d/w daughter at bed side
--- NOTE | 2018-11-24 13:56 | PN ---
Physical Exam: SUBJECTIVE: Pt continues with fevers overnight. Pt did not sleep well due to her fevers and continues to have abdominal pain located in the epigastric region with L>R. Denies current chest pain at the moment. Denies SOB. OBJECTIVE: Vital Signs Period Temp Pulse Resp BP Sys/Adorno Pulse Ox Last 24 Hr 102.0 F-104.4 F 94-111 18-20 107-144/53-64 98 GENERAL: The patient is awake, alert, and fully oriented, in no acute distress. HEENT: NC/AT, sclera anicteric, JEZ, dry mucosa noted NECK: No JVD LUNGS: Poor inspiratory effort, diminished breath sounds bilaterally, no wheezes , no crackles, no accessory muscle use. HEART: Tachycardic with regular rhythm, S1, S2 without murmur ABDOMEN: Soft, nondistended, improved tenderness in L sided most notably epigastric, normoactive BS, no guarding, no rebound. BACK: No CVA tenderness EXTREMITIES: 2+ pulses, warm, well-perfused, no edema. PSYCH: Normal mood, normal affect. SKIN: Warm, dry, no rashes or lesions noted Laboratory Results - last 24 hr 11/23/18 11/23/18 11/24/18 13:30 16:40 06:00 WBC RBC Hgb Hct MCV MCH MCHC RDW Plt Count MPV Absolute Neuts (auto) Neutrophils % Lymphocytes % Monocytes % Eosinophils % Basophils % Nucleated RBC % Sodium 144 Potassium 3.5 Chloride 112 H Carbon Dioxide 22 Anion Gap 10 BUN 30 H Creatinine 2.1 H Creat Clearance w eGFR 22.72 POC Glucometer 214 Random Glucose 219 H Calcium 6.9 L* Phosphorus 2.3 L Magnesium 1.6 L Total Bilirubin 0.6 Direct Bilirubin 0.3 H AST 30 ALT 8 L Alkaline Phosphatase 125 H Troponin I 0.08 H 0.04 Total Protein 5.5 L Albumin 2.2 L Total Amylase 20 L Lipase 45 L 11/24/18 11/24/18 11/24/18 06:00 06:17 11:41 WBC 8.2 RBC 3.29 L Hgb 9.4 L Hct 29.5 L MCV 89.6 MCH 28.6 MCHC 31.9 L RDW 16.3 H Plt Count 89 L MPV 10.9 Absolute Neuts (auto) 7.0 Neutrophils % 85.4 H Lymphocytes % 7.1 L D Monocytes % 7.2 Eosinophils % 0.1 D Basophils % 0.2 Nucleated RBC % 0 Sodium Potassium Chloride Carbon Dioxide Anion Gap BUN Creatinine Creat Clearance w eGFR POC Glucometer 191 233 Random Glucose Calcium Phosphorus Magnesium Total Bilirubin Direct Bilirubin AST ALT Alkaline Phosphatase Troponin I Total Protein Albumin Total Amylase Lipase Active Medications Generic Name Dose Route Start Last Admin Trade Name Freq PRN Reason Stop Dose Admin Acetaminophen 650 mg 11/24/18 07:54 Tylenol - PO Q4H PRN FEVER Aspirin 81 mg 11/24/18 10:00 11/24/18 09:49 Ecotrin - PO 81 mg DAILY GLORIA Administration Carbidopa/Levodopa 0.5 each 11/23/18 22:00 11/24/18 06:35 Sinemet 25/100 - PO 0.5 each TID GLORIA Administration Heparin Sodium (Porcine) 5,000 unit 11/23/18 06:00 11/24/18 06:35 Heparin - SQ 5,000 unit TID GLORIA Administration Sodium Chloride 1,000 mls @ 75 mls/hr 11/23/18 08:15 11/24/18 09:52 Normal Saline - IV Not Given ASDIR GLORIA Ertapenem 1 gm/ Sodium 50 mls @ 100 mls/hr 11/23/18 20:15 11/24/18 10:58 Chloride IVPB 100 mls/hr DAILY GLORIA Administration Insulin Aspart 1 vial 11/23/18 07:00 11/24/18 11:42 Novolog Vial Sliding Scale - SQ 4 units TIDAC GLORIA Administration Protocol Pregabalin 50 mg 11/23/18 22:00 11/24/18 06:35 Lyrica - PO 50 mg TID GLORIA Administration Ranitidine HCl 150 mg 11/24/18 10:30 11/24/18 11:44 Zantac - PO 150 mg DAILY GLORIA Administration Vancomycin HCl 125 mg 11/23/18 12:00 11/24/18 12:02 Vancomycin Oral Solution PO 125 mg Q6HPO GLORIA Administration ASSESSMENT/PLAN: Sepsis 2/2 to Pyelonephritis Acute on chronic Diarrhea (resolving) Chest pain with abnormal stress test Acute on chronic kidney insufficiency Transaminitis (resolved) DM HTN Parkinson's disease Hypophosphatemia Hypomagmesemia Hypocalcemia --Urine cultures showing nonlactose fermenting bacteria --Switch to Meropenem for pseudomonas coverage --Continue NS@75cc/hr with monitoring of volume status --Continue Tylenol PRN for fevers alongside of ice packs (cannot use NSAIDs due to NATASHA on CKD) --Consult urology due to b/l hydronephrosis in setting of ileal conduit --Diarrhea resolved at this point --GI recommendations regarding Vanco PO --If diarrhea recurs then stool cx and c. diff to be obtained --Cardiology consulted regarding optimization of medications considering abnormal stress test (possible Ranexa?) --Pt's family declined cath in the past --Acute kidney injury resolving with IVF --Likely prerenal in nature due to sepsis and insensible losses --Holding Lasix and HCTZ as well from home medications --Glucose elevated over the past day, however did not receive any ISS coverage --Monitor BGM and ISS --Possibility of Levemir coverage as 75/25 is nonformulary here --Continue home dose Sinemet FEN: Fluids: NS@75cc/hr Electrolyte abnormalities: as above; replete with 1gm Mg, Kphos, and Calcium gluconate Nutrition: Advanced to sodium and diabetic controlled PPX: DVT - Heparin TID SQ GI - Zantac given risk of C. diff with ABX and protonix Dispo: Continue monitoring Case discussed with Dr. Niles Willett, DO - IM PGY-2 Visit type - Emergency Visit Emergency Visit: Yes ED Registration Date: 11/22/18 Care time: The patient presented to the Emergency Department on the above date and was hospitalized for further evaluation of their emergent condition. - New Patient This patient is new to me today: No - Critical Care Critical Care patient: No
[2018-11-24] MEDS: ACETAMINOPHEN 325 MG TABLET (FP) PO PRN ×2 (14:03→21:03)
--- NOTE | 2018-11-24 14:28 | PN.GI ---
GI Progress Note Subjective: Coninued fevers b/l hydronephrosis and changes c/w hydronephrosis noted on CT scan Patient's daughter present: states that her mother complains of stabbing left ear pain Abdominal US unrevealing - Objective Vital Signs: Vital Signs Temperature 102.3 F H 11/24/18 06:00 Pulse Rate 98 H 11/24/18 06:00 Respiratory Rate 20 11/24/18 06:00 Blood Pressure 131/55 L 11/24/18 06:00 O2 Sat by Pulse Oximetry (%) 98 11/23/18 21:00 Constitutional: Calm Cardiovascular: Yes: Tachycardia Respiratory: Yes: Diminished (at bases, poor indsp effort) Gastrointestinal Inspection: No: Distention ...Auscultate: Yes: Normoactive Bowel Sounds ...Palpate: Yes: Soft, Tenderness (improved TTP left abdomen) ...Percussion: No: Tympanitic Neurological: Yes: Alert Labs: CBC, BMP 11/24/18 06:00 11/24/18 06:00 INR, PTT INR 1.26 (0.83-1.09) H 11/22/18 21:10 Hepatic Panel Total Bilirubin 0.6 mg/dL (0.2-1) 11/24/18 06:00 Direct Bilirubin 0.3 mg/dL (0.0-0.2) H 11/24/18 06:00 AST 30 U/L (15-37) 11/24/18 06:00 ALT 8 U/L (13-61) L 11/24/18 06:00 Alkaline Phosphatase 125 U/L (45-117) H 11/24/18 06:00 Albumin 2.2 g/dl (3.4-5.0) L 11/24/18 06:00 Problem List - Problems (1) Diarrhea Assessment/Plan: No diarrhea as of yet Code(s): R19.7 - DIARRHEA, UNSPECIFIED (2) Fever and chills Assessment/Plan: Hydroneprhsosis with pyelonephritis ID Urology eval Code(s): R50.9 - FEVER, UNSPECIFIED (3) Left ear pain Assessment/Plan: Ms. Acuña's nurse is aware and will d/w medical attending Code(s): H92.02 - OTALGIA, LEFT EAR
--- NOTE | 2018-11-24 14:49 | CON.ID ---
Consult Consult Specialty:: infectious diseases Referred by:: Reason for Consultation:: sepsi,uti - History of Present Illness Chief Complaint: fever,weakness History of Present Illness: 78 y/o female admitted to the hospital because of lethargy,high grade fevers .The patient now fairly awake and alert also mentions that she has been having abd pain aslo fevers have started recvently and suddenly .patient has a urostomy done with ileaal conduit also according to the notes noted patient has been having watery dirrhoea she also has ahd vomiting patient had been treated for a prolong course of abx looks like the way the patient and her family the medications ahve not been taken appropriately and own adjustments ahve been made currently patient is awake but feels very weak confused and has abd pain which is generalized she also ahs been spiking fevers - History Source History Provided By: Patient, Medical Record Limitations to Obtaining History: Clinical Condition - Past Medical History Cardio/Vascular: Yes: AFIB, HTN Gastrointestinal: Yes: GERD Hepatobiliary: Yes: Cholecystitis Renal/: Yes: Cancer (Bladder cancer) Musculoskeletal: Yes: Osteoarthritis - Past Surgical History Past Surgical History: Yes: Cholecystectomy (open), Ileal Conduit, Joint Replacement (R knee) Additional Surgical History: surgery secondary to miscarriage, IVC filter - Alcohol/Substance Use Hx Alcohol Use: No History of Substance Use: reports: None - Smoking History Smoking history: Never smoked Have you smoked in the past 12 months: No Aproximately how many cigarettes per day: 0 Home Medications - Allergies Allergies/Adverse Reactions: Allergies Allergy/AdvReac Type Severity Reaction Status Date / Time latex Allergy Verified 11/16/18 19:27 - Home Medications Home Medications: Ambulatory Orders Insulin NPL/Insulin Lispro [Humalog Mix 75-25 Pen] 30 unit SQ AM 05/04/13 Insulin Lispro Protamin/Lispro [Humalog Mix 75-25 Vial] 27 unit SQ HS 12/22/16 Multivitamins [Multivit ([facility] Formulary)] 1 mg PO DAILY 05/08/17 Omeprazole 40 mg PO BID 05/08/17 Pregabalin [Lyrica -] 50 mg PO TID 05/08/17 Pramipexole Dihydrochloride [Mirapex -] 0.5 mg PO BID 03/14/18 Calcium Carbonate/Vitamin D3 [Calcium 600 + Vit D 400 Softgl] 600 mg PO TID Carbidopa/Levodopa [Carbidopa-Levodopa 25-100 Tab] 0.5 each PO TID 09/13/18 Ascorbate Calcium [Vitamin C] 500 mg PO BID 11/17/18 Baclofen 10 mg PO TID 11/17/18 Brimonidine Tartrate/Timolol [Combigan 0.2%-0.5% Eye Drops] 5 ml OU BID Docusate Sodium 100 mg PO DAILY 11/17/18 Furosemide [Lasix -] 40 mg PO DAILY 11/17/18 Aspirin Coated [Ecotrin -] 81 mg PO DAILY #30 tablet.ec 11/19/18 Hydrochlorothiazide [Hctz -] 12.5 mg PO DAILY #30 cap 11/19/18 Family Disease History - Family Disease History Other Family History: No family history of colorectal cancer Review of Systems - Review of Systems Constitutional: reports: Fever, Weakness Eyes: reports: No Symptoms HENT: reports: No Symptoms Neck: reports: No Symptoms Cardiovascular: reports: No Symptoms Respiratory: reports: No Symptoms Gastrointestinal: reports: Abdominal Pain, Bloating, Diarrhea Genitourinary: reports: No Symptoms Musculoskeletal: reports: No Symptoms Integumentary: reports: No Symptoms Neurological: reports: No Symptoms Endocrine: reports: No Symptoms Hematology/Lymphatic: reports: No Symptoms Psychiatric: reports: No Symptoms Physical Exam Vital Signs: Vital Signs Temperature 102.3 F H 11/24/18 06:00 Pulse Rate 98 H 11/24/18 06:00 Respiratory Rate 20 11/24/18 06:00 Blood Pressure 131/55 L 11/24/18 06:00 O2 Sat by Pulse Oximetry (%) 98 11/23/18 21:00 Constitutional: Yes: Moderate Distress, Obese Eyes: Yes: Conjunctiva Clear Neck: Yes: Supple, Trachea Midline Cardiovascular: Yes: Regular Rate and Rhythm Respiratory: Yes: Regular, CTA Bilaterally Gastrointestinal: Yes: Distention, Hypoactive Bowel Sounds, Tenderness ( generalized), Other (urostomy with clear urine) Musculoskeletal: Yes: WNL Extremities: Yes: WNL Neurological: Yes: Alert, Oriented Psychiatric: Yes: Alert, Oriented Labs: CBC, BMP 11/24/18 06:00 11/24/18 06:00 Imaging - Results Chest X-ray: Report Reviewed, Image Reviewed Cat Scan: Report Reviewed, Image Reviewed Ultrasound: Report Reviewed, Image Reviewed Assessment/Plan Problem List - Problems (1) Abdominal pain Code(s): R10.9 - UNSPECIFIED ABDOMINAL PAIN Qualifiers: Abdominal location: generalized Qualified Code(s): R10.84 - Generalized abdominal pain (2) Diarrhea Code(s): R19.7 - DIARRHEA, UNSPECIFIED (3) Fever and chills Code(s): R50.9 - FEVER, UNSPECIFIED 4 uti 5 pyelo nephritis plan cdiff if possible vasquez top ertapenam will switch to zosyn monitor fevers rest as per urology monitor for dirrhoea if present do cdiff hydration rest as per the team
[2018-11-24] MEDS ORDERED: PIPERACILLIN/TAZOBACTAM 2.25 GM VIAL IVPB ONE (17:45)
[2018-11-24] MEDS ORDERED: DEXTROSE 5%-WATER - 50 ML IVPB ONE (17:46)
[2018-11-24] MEDS: PIPERACILLIN/TAZOB 2.25 GM 2.25 GM in DEXTROSE 5%-WATER - 50 ML IVPB SCH (17:57)
[2018-11-25] MEDS ORDERED: DEXTROSE 5%-WATER - 50 ML IVPB ONE ×3 (01:16→17:21)
[2018-11-25] MEDS ORDERED: PIPERACILLIN/TAZOBACTAM 2.25 GM VIAL IVPB ONE ×3 (01:16→17:21)
[2018-11-25] MEDS: PIPERACILLIN/TAZOB 2.25 GM 2.25 GM in DEXTROSE 5%-WATER - 50 ML IVPB SCH ×3 (02:07→17:58)
[2018-11-25] MEDS: VANCOMYCIN 250 MG/5 ML ORAL SOLUTION PO SCH ×4 (06:13→23:00)
[2018-11-25] MEDS: CARBIDOPA/LEVODOPA 25/100 TABLET (FP) PO SCH ×3 (06:14→22:59)
[2018-11-25] MEDS: PREGABALIN 50 MG CAPSULE PO SCH ×3 (06:14→22:59)
[2018-11-25] MEDS: HEPARIN NA (PORCINE) 5,000 UNITS/ML 1ML VIAL SQ SCH ×3 (06:14→22:59)
[2018-11-25] MEDS: INSULIN SLIDING SCALE (NOVOLOG) 1 VIAL SQ SCH ×3 (06:54→16:46)
[2018-11-25 06:56] LABS: HEMATOCRIT 29.3 % (32.4-45.2); HEMOGLOBIN 9.4 GM/dL (10.7-15.3); MCH 28.4 pg (25.7-33.7); MEAN CELL VOLUME 88.6 fl (80-96); MEAN PLT VOLUME 10.5 fl (7.5-11.1); PLATELET COUNT 98 K/MM3 (134-434); RDW 16.2 % (11.6-15.6); WHITE BLOOD COUNT 6.1 K/mm3 (4.0-10.0)
[2018-11-25 07:20] LABS: ALBUMIN 2.1 g/dl (3.4-5.0); ALK PHOS 117 U/L (45-117); ANION GAP 5 MMOL/L (8-16); BILIRUBIN,TOTAL 0.5 mg/dL (0.2-1); BLOOD UREA NITROGEN 31 mg/dL (7-18); CALCIUM 7.9 mg/dL (8.5-10.1); CHLORIDE 109 mmol/L (98-107); CO2 26 mmol/L (21-32); CREATININE 2.1 mg/dL (0.55-1.3); GLUCOSE,RANDOM 165 mg/dL (74-106); MAGNESIUM 2.3 mg/dL (1.8-2.4); PHOSPHOROUS 3.7 mg/dL (2.5-4.9); POTASSIUM 4.2 mmol/L (3.5-5.1); SGOT/AST 36 U/L (15-37); SGPT/ALT 12 U/L (13-61); SODIUM 140 mmol/L (136-145); TOT PROT 5.8 g/dl (6.4-8.2)
[2018-11-25] MEDS: SODIUM CHLORIDE 1,000 ML IV SCH ×2 (09:26→17:57)
--- NOTE | 2018-11-25 09:29 | PN ---
Progress Note (short form) - Note Progress Note: UROLOGY NOTE: Pt w/ history of bladder cancer and ileal conduit. CTAP reveal b/l hydroureteronephrosis. This could be due to a normal consequence of the conduit , i.e ileo-uretero reflux or obstruction at the uretero-ilel junction. Pt will need a ileoscopy and an iliogram to r/o mechanical obstruction.
[2018-11-25] MEDS: ACETAMINOPHEN 325 MG TABLET (FP) PO PRN (09:31)
[2018-11-25] MEDS: ASPIRIN COATED 81 MG TABLET.EC PO SCH (09:32)
[2018-11-25] MEDS: RANITIDINE HCL 150 MG TABLET (FP) PO SCH (09:32)
--- NOTE | 2018-11-25 10:44 | CON.CARD ---
Cardiology Consult (text) - Consultation Consultation Note: Chief Complaint: ams, fever, diarrhea History of Present Illness: 78 yo female here with ams, fever, diarrhea. Found to have pyelo, now on abx. No cp sob palps dizzy loc pnd orthopnea le edema. PMH: Bladder CA s/p Radical Cystectomy and urostomy 9 years ago, DVT s/p IVC Filter and on Coumadin, IDDM, HTN, GERD, Osteoarthritis pt denies h/o afib, CVA - Alcohol/Substance Use Hx Alcohol Use: No - Smoking History Smoking history: Never smoked Have you smoked in the past 12 months: No Aproximately how many cigarettes per day: 0 Home Medications - Allergies Allergies/Adverse Reactions: Allergies Allergy/AdvReac Type Severity Reaction Status Date / Time latex Allergy Verified 11/16/18 19:27 - Home Medications Home Medications Medication Instructions Recorded Insulin NPL/Insulin Lispro 30 unit SQ AM 05/04/13 [Humalog Mix 75-25 Pen] Insulin Lispro Protamin/Lispro 27 unit SQ HS 12/22/16 [Humalog Mix 75-25 Vial] Multivitamins [Multivit ([facility] 1 mg PO DAILY 05/08/17 Formulary)] Omeprazole 40 mg PO BID 05/08/17 Pregabalin [Lyrica -] 50 mg PO TID 05/08/17 Pramipexole Dihydrochloride 0.5 mg PO BID 03/14/18 [Mirapex -] Calcium Carbonate/Vitamin D3 600 mg PO TID 03/15/18 [Calcium 600 + Vit D 400 Softgl] Carbidopa/Levodopa 0.5 each PO TID 09/13/18 [Carbidopa-Levodopa 25-100 Tab] Ascorbate Calcium [Vitamin C] 500 mg PO BID 11/17/18 Baclofen 10 mg PO TID 11/17/18 Brimonidine Tartrate/Timolol 5 ml OU BID 11/17/18 [Combigan 0.2%-0.5% Eye Drops] Docusate Sodium 100 mg PO DAILY 11/17/18 Furosemide [Lasix -] 40 mg PO DAILY 11/17/18 Aspirin Coated [Ecotrin -] 81 mg PO DAILY #30 tablet.ec 11/19/18 Hydrochlorothiazide [Hctz -] 12.5 mg PO DAILY #30 cap 04/01/19 Family Disease History - Family Disease History Family History: Denies (no cardiomyopathy) Review of Systems - Review of Systems per hpi; Eyes: denies: Eye Pain HENT: denies: Nasal Congestion Neck: denies: Stiffness Cardiovascular: denies: Palpitations Respiratory: denies: Orthopnea, PND Gastrointestinal: denies: Diarrhea, Rectal Bleeding Genitourinary: denies: Burning Musculoskeletal: denies: Muscle Pain Integumentary: denies: Rash Neurological: denies: Numbness, Seizure, Syncope Endocrine: denies: Excessive Sweating Hematology/Lymphatic: denies: Excessive Bleeding Vital Signs: Vital Signs Period Temp Pulse Resp BP Sys/Adorno Pulse Ox Last 24 Hr 98.8 F-102.1 F 65-99 18-20 109-142/50-69 100 Constitutional: Yes: No Distress, Obese Eyes: No: Sclera Icterus HENT: No: Nasal Congestion Neck: No: Decreased ROM Respiratory: Yes: CTA Bilaterally. No: Accessory Muscle Use, Rales, Wheezes Gastrointestinal: Yes: Normal Bowel Sounds. No: Distention, Hepatomegaly, Palpable Mass, Tenderness Cardiovascular: Yes: Regular Rate and Rhythm (soft heart sounds) JVD: No Carotid Bruit: No PMI: Non-Displaced Heart Sounds: Yes: S1, S2. No: Gallop Murmur: No: Systolic Murmur, Diastolic Murmur Extremities: No: Cool, Cyanosis Edema: No Peripheral Pulses: 2+ Left Carotid, 2+ Right Carotid, 2+ Left Doralis Pedis, 2+ Right Dorsalis Pedis Integumentary: No: Jaundice Neurological: Yes: Alert, Oriented (x3) Psychiatric: No: Agitated Laboratory Last Values WBC 6.1 K/mm3 (4.0-10.0) 11/25/18 06:00 RBC 3.30 M/mm3 (3.60-5.2) L 11/25/18 06:00 Hgb 9.4 GM/dL (10.7-15.3) L 11/25/18 06:00 Hct 29.3 % (32.4-45.2) L 11/25/18 06:00 MCV 88.6 fl (80-96) 11/25/18 06:00 MCH 28.4 pg (25.7-33.7) 11/25/18 06:00 MCHC 32.0 g/dl (32.0-36.0) 11/25/18 06:00 RDW 16.2 % (11.6-15.6) H 11/25/18 06:00 Plt Count 98 K/MM3 (134-434) L 11/25/18 06:00 MPV 10.5 fl (7.5-11.1) 11/25/18 06:00 Absolute Neuts (auto) 7.0 K/mm3 (1.5-8.0) 11/24/18 06:00 Neutrophils % 85.4 % (42.8-82.8) H 11/24/18 06:00 Lymphocytes % 7.1 % (8-40) L D 11/24/18 06:00 Monocytes % 7.2 % (3.8-10.2) 11/24/18 06:00 Eosinophils % 0.1 % (0-4.5) D 11/24/18 06:00 Basophils % 0.2 % (0-2.0) 11/24/18 06:00 Nucleated RBC % 0 % (0-0) 11/24/18 06:00 Platelet Estimate Decreased 11/22/18 19:01 Platelet Comment No clumping noted 11/22/18 19:01 PT with INR 14.90 SEC (9.7-13.0) H 11/22/18 21:10 INR 1.26 (0.83-1.09) H 11/22/18 21:10 PTT (Actin FS) 36.3 SECONDS (25.2-36.5) 11/22/18 21:10 Sodium 140 mmol/L (136-145) 11/25/18 06:00 Potassium 4.2 mmol/L (3.5-5.1) 11/25/18 06:00 Chloride 109 mmol/L (98-107) H 11/25/18 06:00 Carbon Dioxide 26 mmol/L (21-32) 11/25/18 06:00 Anion Gap 5 MMOL/L (8-16) L 11/25/18 06:00 BUN 31 mg/dL (7-18) H 11/25/18 06:00 Creatinine 2.1 mg/dL (0.55-1.3) H 11/25/18 06:00 Creat Clearance w eGFR 22.72 (>60) 11/25/18 06:00 POC Glucometer 156 UNITS (80-120) 11/25/18 06:13 Random Glucose 165 mg/dL (74-106) H 11/25/18 06:00 Lactic Acid 1.5 mmol/L (0.4-2.0) 11/22/18 19:01 Calcium 7.9 mg/dL (8.5-10.1) L 11/25/18 06:00 Phosphorus 3.7 mg/dL (2.5-4.9) 11/25/18 06:00 Magnesium 2.3 mg/dL (1.8-2.4) 11/25/18 06:00 Total Bilirubin 0.5 mg/dL (0.2-1) 11/25/18 06:00 Direct Bilirubin 0.3 mg/dL (0.0-0.2) H 11/24/18 06:00 AST 36 U/L (15-37) 11/25/18 06:00 ALT 12 U/L (13-61) L 11/25/18 06:00 Alkaline Phosphatase 117 U/L (45-117) 11/25/18 06:00 Troponin I 0.04 ng/ml (0.00-0.05) 11/24/18 06:00 Total Protein 5.8 g/dl (6.4-8.2) L 11/25/18 06:00 Albumin 2.1 g/dl (3.4-5.0) L 11/25/18 06:00 Total Amylase 20 U/L (25-115) L 11/23/18 13:30 Lipase 45 U/L (73-393) L 11/23/18 13:30 Urine Color Yellow 11/22/18 19:01 Urine Appearance Turbid 11/22/18 19:01 Urine pH 5.0 (5.0-8.0) D 11/22/18 19:01 Ur Specific [place] 1.012 (1.010-1.035) 11/22/18 19:01 Urine Protein 2+ (NEGATIVE) H 11/22/18 19:01 Urine Glucose (UA) Negative (NEGATIVE) 11/22/18 19:01 Urine Ketones Trace (NEGATIVE) H 11/22/18 19: Urine Blood 3+ (NEGATIVE) H 11/22/18 19:01 Urine Nitrite Negative (NEGATIVE) 11/22/18 19:01 Urine Bilirubin Negative (NEGATIVE) 11/22/18 19:01 Urine Urobilinogen 0.2 mg/dL (0.2-1.0) 11/22/18 19:01 Ur Leukocyte Esterase 3+ (NEGATIVE) H 11/22/18 19:01 Urine WBC (Auto) 646 /hpf (0-5) 11/22/18 19:01 Urine RBC (Auto) 27 /hpf (0-4) 11/22/18 19:01 Urine Casts (Auto) 33 /hpf (0-8) 11/22/18 19:01 U Pathogenic Cast Auto 25 (NEGATIVE) 11/22/18 19:01 U Epithel Cells (Auto) 2.0 /HPF (0-5) 11/22/18 19:01 Urine Bacteria (Auto) 4685.4 /hpf (NEGATIVE) 11/22/18 19:01 Stool Occult Blood Negative (NEGATIVE) 11/23/18 04:15 Influenza A (Rapid) Negative 11/22/18 20:01 Influenza B (Rapid) Negative 11/22/18 20:01 ekg: SR, RBBB,no sig change vs prior echo 08/2018: nl lv/rv, mild mr cxr: no sig chf mibi 11/2018 small to mod zone of inferolateral and lateral reversible defect c/ w mild intensity ischemia, EF 59% echo 11/2018 nl LV function, EF 55-60%, grade I diastolic dysufnction, PASP at least 41 mmHg tele: sinus a/p: uti/pyelo: -abx per ID presumed cad, cp: -recent admit for cp. echo then with nl EF. Recent mibi with mild ischemia and pt/family opted for med management, no cath. -currently no cp, no signs acs, trops unremarkable -cont asa, monitor for new sxs HTN: -cont home meds DM: -per primary MD CKD: -currently stable renal fxn
[2018-11-25] MEDS ORDERED: PT OWN MED DRAWER 7, Y5N ONE (13:14)
--- NOTE | 2018-11-25 13:17 | PN ---
Progress Note, Physician History of Present Illness: doing well feels much better - Current Medication List Current Medications: Active Medications Acetaminophen (Tylenol -) 650 mg PO Q4H PRN PRN Reason: FEVER Last Admin: 11/25/18 09:31 Dose: 650 mg Aspirin (Ecotrin -) 81 mg PO DAILY [facility] Last Admin: 11/25/18 09:32 Dose: 81 mg Carbidopa/Levodopa (Sinemet 25/100 -) 0.5 each PO TID [facility] Last Admin: 11/25/18 06:14 Dose: 0.5 each Heparin Sodium (Porcine) (Heparin -) 5,000 unit SQ TID [facility] Last Admin: 11/25/18 06:14 Dose: 5,000 unit Sodium Chloride (Normal Saline -) 1,000 mls @ 75 mls/hr IV ASDIR [facility] Last Admin: 11/25/18 09:26 Dose: Not Given Piperacillin Sod/Tazobactam (Sod 2.25 gm/ Dextrose) 50 mls @ 100 mls/hr IVPB Q8H-IV [facility]; Protocol Last Admin: 11/25/18 09:32 Dose: 100 mls/hr Insulin Aspart (Novolog Vial Sliding Scale -) 1 vial SQ TIDAC [facility]; Protocol Last Admin: 11/25/18 12:24 Dose: Not Given Pregabalin (Lyrica -) 50 mg PO TID [facility] Last Admin: 11/25/18 06:14 Dose: 50 mg Ranitidine HCl (Zantac -) 150 mg PO DAILY [facility] Last Admin: 11/25/18 09:32 Dose: 150 mg Vancomycin HCl (Vancomycin Oral Solution) 125 mg PO Q6HPO [facility] Last Admin: 11/25/18 12:33 Dose: 125 mg - Objective Vital Signs: Vital Signs Temperature 100.4 F H 11/25/18 10:00 Pulse Rate 76 11/25/18 10:00 Respiratory Rate 20 11/25/18 10:00 Blood Pressure 123/64 11/25/18 10:00 O2 Sat by Pulse Oximetry (%) 100 11/25/18 10:00 Constitutional: Yes: No Distress, Calm, Obese Cardiovascular: Yes: Regular Rate and Rhythm Respiratory: Yes: Regular, CTA Bilaterally Gastrointestinal: Yes: Normal Bowel Sounds, Soft, Other (urostomy in place) Musculoskeletal: Yes: WNL Extremities: Yes: WNL Neurological: Yes: Alert, Oriented Psychiatric: Yes: Alert, Oriented Labs: CBC, BMP 11/25/18 06:00 11/25/18 06:00 INR, PTT INR 1.26 (0.83-1.09) H 11/22/18 21:10 Assessment/Plan Problem List - Problems (1) Abdominal pain Code(s): R10.9 - UNSPECIFIED ABDOMINAL PAIN Qualifiers: Abdominal location: generalized Qualified Code(s): R10.84 - Generalized abdominal pain (2) Diarrhea Code(s): R19.7 - DIARRHEA, UNSPECIFIED (3) Fever and chills Code(s): R50.9 - FEVER, UNSPECIFIED 4 uti 5 pyelo nephritis plan continue abx awaiting for further work up rest as per the team patient improving
--- NOTE | 2018-11-25 16:24 | PN ---
Progress Note (short form) - Note Progress Note: Subjective: contto have fevers. she feels better today. No MASON . , had L ear pain x 2 weeks. has chronic pain in knees, r > L and this has not changed. no abd pain, no diarrhea Objective: Vital Signs: Last Vital Signs Temp Pulse Resp BP Pulse Ox 99.4 F 85 18 123/64 100 11/25/18 14:00 11/25/18 14:00 11/25/18 14:00 11/25/18 10:00 11/25/18 10:00 Laboratory Results - last 24 hr 11/24/18 11/25/18 11/25/18 17:27 06:00 06:00 WBC 6.1 RBC 3.30 L Hgb 9.4 L Hct 29.3 L MCV 88.6 MCH 28.4 MCHC 32.0 RDW 16.2 H Plt Count 98 L MPV 10.5 Sodium 140 Potassium 4.2 Chloride 109 H Carbon Dioxide 26 Anion Gap 5 L BUN 31 H Creatinine 2.1 H Creat Clearance w eGFR 22.72 POC Glucometer 203 Random Glucose 165 H Calcium 7.9 L Phosphorus 3.7 Magnesium 2.3 Total Bilirubin 0.5 AST 36 ALT 12 L Alkaline Phosphatase 117 Total Protein 5.8 L Albumin 2.1 L 11/25/18 11/25/18 06:13 11:46 WBC RBC Hgb Hct MCV MCH MCHC RDW Plt Count MPV Sodium Potassium Chloride Carbon Dioxide Anion Gap BUN Creatinine Creat Clearance w eGFR POC Glucometer 156 167 Random Glucose Calcium Phosphorus Magnesium Total Bilirubin AST ALT Alkaline Phosphatase Total Protein Albumin Physical Exam: NAD, awake, alert. cooperative HEENT: MMM. CV: RRR, 2/6 SM at base Lungs: CTAB Abd: obese, soft, NT. yellow urine with sediment in collecting bag. umbilical hernia .NL BS Ext: no edema or erythema. surgical scar on anterior R knee. MS: TTP all over her body ( legs, knees, thighs, shoulders, arms,,,,) ASSESSMENT AND PLAN: 77 y/o lady with h/o HTN, DM, Bladder cancer s/p ileal conduit, SBO, abd wall hernias, SAH,salmonella enteritis and bacteremia, + stress test , CKD ( Cr base line 1.5),` DVTs and IVC filter who presented with fever,AMS and diarrhea . 1- Sepsis: due to pyelnephritis. urine cx Klebsiella, salmonella and group D strep. improvement in fever curve - cont zosyn - follow blood cx . Neg to date - urology consult pending ( called ) , for b/l hydro 2- diarrhea: now resolved. no BM since admission. - po vanco per GI. - stool cx and c diff if diarrhea recurs 3- L sided CP: with + stress test 11/19 with reversible lateral ischemia. Cath was declined by family then. - cont asa -appreciate card recs 4- NATASHA on CKD : due to volume depletion in setting of worsening chronic diarrhea and fever while on lasix and HCTZ - IV hydration - hold diuretics 5- DM : on humolog 75/25 at home. will do SSI now, if needed can start insulin 70/30 or Levemir with SSI 6- HTN: hold lasix and HCTZ 7- parkinson's : cont CArbidopa/Levo dopa 8- L ear pain ( 2 weeks ) , can't fined an otoscope . will try to get one tomorrow DVT Px: heparin sq Visit type - Emergency Visit Emergency Visit: Yes ED Registration Date: 11/22/18 Care time: The patient presented to the Emergency Department on the above date and was hospitalized for further evaluation of their emergent condition. - New Patient This patient is new to me today: No - Critical Care Critical Care patient: No
[2018-11-26] MEDS ORDERED: DEXTROSE 5%-WATER - 50 ML IVPB ONE ×3 (01:23→17:55)
[2018-11-26] MEDS ORDERED: PIPERACILLIN/TAZOBACTAM 2.25 GM VIAL IVPB ONE ×3 (01:23→17:55)
[2018-11-26] MEDS: PIPERACILLIN/TAZOB 2.25 GM 2.25 GM in DEXTROSE 5%-WATER - 50 ML IVPB SCH ×3 (01:27→18:00)
[2018-11-26] MEDS: ACETAMINOPHEN 325 MG TABLET (FP) PO PRN ×2 (02:08→21:07)
[2018-11-26] MEDS: PREGABALIN 50 MG CAPSULE PO SCH ×4 (05:38→21:02)
[2018-11-26] MEDS: CARBIDOPA/LEVODOPA 25/100 TABLET (FP) PO SCH ×4 (05:38→21:03)
[2018-11-26] MEDS: VANCOMYCIN 250 MG/5 ML ORAL SOLUTION PO SCH ×4 (05:38→23:31)
[2018-11-26] MEDS: INSULIN SLIDING SCALE (NOVOLOG) 1 VIAL SQ SCH ×3 (06:00→17:53)
[2018-11-26 08:22] LABS: ANION GAP 7 MMOL/L (8-16); BLOOD UREA NITROGEN 30 mg/dL (7-18); CALCIUM 7.7 mg/dL (8.5-10.1); CHLORIDE 109 mmol/L (98-107); CO2 25 mmol/L (21-32); CREATININE 2.1 mg/dL (0.55-1.3); GLUCOSE,RANDOM 162 mg/dL (74-106); POTASSIUM 3.8 mmol/L (3.5-5.1); SODIUM 141 mmol/L (136-145)
[2018-11-26] MEDS: ASPIRIN COATED 81 MG TABLET.EC PO SCH (09:34)
[2018-11-26] MEDS: RANITIDINE HCL 150 MG TABLET (FP) PO SCH ×2 (09:34→15:21)
[2018-11-26] MEDS: SODIUM CHLORIDE 1,000 ML IV SCH (09:39)
--- NOTE | 2018-11-26 13:51 | PN ---
Progress Note, Physician History of Present Illness: continues to improve patient stable - Current Medication List Current Medications: Active Medications Acetaminophen (Tylenol -) 650 mg PO Q4H PRN PRN Reason: FEVER Last Admin: 11/26/18 02:08 Dose: 650 mg Aspirin (Ecotrin -) 81 mg PO DAILY [facility] Last Admin: 11/26/18 09:34 Dose: Not Given Carbidopa/Levodopa (Sinemet 25/100 -) 0.5 each PO TID [facility] Last Admin: 11/26/18 05:38 Dose: 0.5 each Heparin Sodium (Porcine) (Heparin -) 5,000 unit SQ TID [facility] Last Admin: 11/25/18 22:59 Dose: 5,000 unit Sodium Chloride (Normal Saline -) 1,000 mls @ 75 mls/hr IV ASDIR [facility] Last Admin: 11/26/18 09:39 Dose: 75 mls/hr Piperacillin Sod/Tazobactam (Sod 2.25 gm/ Dextrose) 50 mls @ 100 mls/hr IVPB Q8H-IV [facility]; Protocol Last Admin: 11/26/18 09:39 Dose: 100 mls/hr Insulin Aspart (Novolog Vial Sliding Scale -) 1 vial SQ TIDAC [facility]; Protocol Last Admin: 11/26/18 11:11 Dose: Not Given Pregabalin (Lyrica -) 50 mg PO TID [facility] Last Admin: 11/26/18 05:38 Dose: 50 mg Ranitidine HCl (Zantac -) 150 mg PO DAILY [facility] Last Admin: 11/26/18 09:34 Dose: Not Given Vancomycin HCl (Vancomycin Oral Solution) 125 mg PO Q6HPO [facility] Last Admin: 11/26/18 11:12 Dose: Not Given - Objective Vital Signs: Vital Signs Temperature 97.4 F L 11/26/18 08:40 Pulse Rate 60 11/26/18 08:40 Respiratory Rate 18 11/26/18 08:40 Blood Pressure 102/52 L 11/26/18 08:40 O2 Sat by Pulse Oximetry (%) 97 11/26/18 09:45 Constitutional: Yes: No Distress, Calm, Obese Cardiovascular: Yes: Regular Rate and Rhythm Respiratory: Yes: Regular, CTA Bilaterally Gastrointestinal: Yes: Normal Bowel Sounds, Soft Musculoskeletal: Yes: WNL Extremities: Yes: WNL Neurological: Yes: Alert, Oriented Psychiatric: Yes: Alert, Oriented Labs: CBC, BMP 11/25/18 06:00 11/26/18 06:20 INR, PTT INR 1.26 (0.83-1.09) H 11/22/18 21:10 Assessment/Plan Problem List - Problems (1) Abdominal pain Code(s): R10.9 - UNSPECIFIED ABDOMINAL PAIN Qualifiers: Abdominal location: generalized Qualified Code(s): R10.84 - Generalized abdominal pain (2) Diarrhea Code(s): R19.7 - DIARRHEA, UNSPECIFIED (3) Fever and chills Code(s): R50.9 - FEVER, UNSPECIFIED 4 uti 5 pyelo nephritis plan continue abx awaiting for further work up rest as per the team patient improving
--- NOTE | 2018-11-26 14:10 | PN ---
Teaching Attending Note Name of Resident: Heather Valencia ATTENDING PHYSICIAN STATEMENT I saw and evaluated the patient. I reviewed the resident's note and discussed the case with the resident. I agree with the resident's findings and plan as documented. SUBJECTIVE: No fever or chills. has epigastric pain , no diarrhea, no SOB. no ear pain todya OBJECTIVE: NAD, awake, alert. cooperative HEENT: MMM. CV: RRR, 2/6 SM at base Lungs: CTAB Abd: obese, soft, NT. yellow urine with sediment in collecting bag. umbilical hernia .NL BS Ext: no edema or erythema. surgical scar on anterior R knee. MS: TTP all over her body. ASSESSMENT AND PLAN: 77 y/o lady with h/o HTN, DM, Bladder cancer s/p ileal conduit, SBO, abd wall hernias, SAH,salmonella enteritis and bacteremia, + stress test , CKD ( Cr base line 1.5),` DVTs and IVC filter who presented with fever,AMS and diarrhea . 1- Sepsis: due to pyelnephritis. urine cx Klebsiella, salmonella and group D strep. improvement in fever curve - cont zosyn - follow blood cx. Neg to datex 72 hrs. - for ileostomy today 2- Diarrhea:No stooling since admission - po vanco per GI. - stool cx and c diff if diarrhea recurs 3- L sided CP: with + stress test 11/19 with reversible lateral ischemia. Cath was declined by family then. - cont asa. - appreciate card recs. 4- NATASHA on CKD: due to volume depletion in setting of worsening chronic diarrhea and fever while on lasix and HCTZ - IV hydration - hold diuretics 5- DM : cont SSI at dc , she will need lower insulin doses due to hypoglycemia as out pt 6- HTN: hold lasix and HCTZ 7- Parkinson's : cont CArbidopa/Levo dopa 8- L ear pain ( 2 weeks ) , resolved. to find an aotoscope today DVT Px: heparin sq ASSESSMENT AND PLAN:
[2018-11-26] MEDS ORDERED: PT OWN MED DRAWER 7, Y5N ONE ×2 (15:19→20:48)
--- NOTE | 2018-11-26 15:50 | PN ---
Progress Note (short form) - Note Progress Note: s: no chest pain, palps, dyspnea, dizziness Current Medications Acetaminophen (Tylenol -) 650 mg PO Q4H PRN PRN Reason: FEVER Last Admin: 11/26/18 02:08 Dose: 650 mg Aspirin (Ecotrin -) 81 mg PO DAILY [facility] Last Admin: 11/26/18 09:34 Dose: Not Given Carbidopa/Levodopa (Sinemet 25/100 -) 0.5 each PO TID [facility] Last Admin: 11/26/18 15:21 Dose: 0.5 each Heparin Sodium (Porcine) (Heparin -) 5,000 unit SQ TID [facility] Last Admin: 11/25/18 22:59 Dose: 5,000 unit Sodium Chloride (Normal Saline -) 1,000 mls @ 75 mls/hr IV ASDIR [facility] Last Admin: 11/26/18 09:39 Dose: 75 mls/hr Piperacillin Sod/Tazobactam (Sod 2.25 gm/ Dextrose) 50 mls @ 100 mls/hr IVPB Q8H-IV [facility]; Protocol Last Admin: 11/26/18 09:39 Dose: 100 mls/hr Insulin Aspart (Novolog Vial Sliding Scale -) 1 vial SQ TIDAC [facility]; Protocol Last Admin: 11/26/18 11:11 Dose: Not Given Pregabalin (Lyrica -) 50 mg PO TID [facility] Last Admin: 11/26/18 15:21 Dose: 50 mg Ranitidine HCl (Zantac -) 150 mg PO DAILY [facility] Last Admin: 11/26/18 15:21 Dose: 150 mg Vancomycin HCl (Vancomycin Oral Solution) 125 mg PO Q6HPO [facility] Last Admin: 11/26/18 11:12 Dose: Not Given Vital Signs: Vital Signs Period Temp Pulse Resp BP Sys/Adorno Pulse Ox Last 24 Hr 97.4 F-101.1 F 60-89 18-20 102-166/48-72 97-98 Constitutional: Yes: No Distress, Obese Eyes: No: Sclera Icterus HENT: No: Nasal Congestion Neck: No: Decreased ROM Respiratory: Yes: CTA Bilaterally. No: Accessory Muscle Use, Rales, Wheezes Gastrointestinal: Yes: Normal Bowel Sounds. No: Distention, Hepatomegaly, Palpable Mass, Tenderness Cardiovascular: Yes: Regular Rate and Rhythm (soft heart sounds) JVD: No Carotid Bruit: No PMI: Non-Displaced Heart Sounds: Yes: S1, S2. No: Gallop Murmur: No: Systolic Murmur, Diastolic Murmur Extremities: No: Cool, Cyanosis Edema: No Peripheral Pulses: 2+ Left Carotid, 2+ Right Carotid, 2+ Left Doralis Pedis, 2+ Right Dorsalis Pedis Integumentary: No: Jaundice Neurological: Yes: Alert, Oriented (x3) Psychiatric: No: Agitated ekg: SR, RBBB,no sig change vs prior echo 08/2018: nl lv/rv, mild mr cxr: no sig chf mibi 11/2018 small to mod zone of inferolateral and lateral reversible defect c/ w mild intensity ischemia, EF 59% echo 11/2018 nl LV function, EF 55-60%, grade I diastolic dysufnction, PASP at least 41 mmHg tele: sinus a/p: uti/pyelo: -abx per ID presumed cad, cp: -recent admit for cp. echo then with nl EF. Recent mibi with mild ischemia and pt/family opted for med management, no cath. -currently no cp, no signs acs, trops unremarkable -cont asa, monitor for new sxs HTN: -cont home meds DM: -per primary MD CKD: -currently stable renal fxn
[2018-11-26] MEDS ORDERED: MAG HYDROX/AL HYDROX/SIMETH 30 ML UNIT-DOSE CUP PO PRN (16:42)
--- NOTE | 2018-11-26 18:25 | PN ---
Physical Exam: SUBJECTIVE: Patient seen and examined at bedside this morning. Patient had episodes of fevers overnight. She also reports epigastric pain. Otherwise denies any headache, dizziness, ear pain, nausea, vomiting, chest pain, shortness of breath, bloody stools. OBJECTIVE: Vital Signs Temperature 98.2 F 11/26/18 14:00 Pulse Rate 85 11/26/18 14:00 Respiratory Rate 18 11/26/18 14:00 Blood Pressure 166/72 11/26/18 14:00 O2 Sat by Pulse Oximetry (%) 97 11/26/18 09:45 GENERAL: The patient is awake, alert, and fully oriented, in no acute distress. HEAD: Normal with no signs of trauma. EYES: PERRLA, EOMI, sclera anicteric, conjunctiva clear. ENT: Ears normal, nares patent, oropharynx clear without exudates, moist mucous membranes. NECK: Trachea midline, full range of motion, supple. LUNGS: Breath sounds equal, clear to auscultation bilaterally. HEART: Regular rate and rhythm, S1, S2 without murmur, rub or gallop. ABDOMEN: Soft, nontender, nondistended, normoactive bowel sounds. EXTREMITIES: 2+ pulses, warm, well-perfused, no edema. PSYCH: Normal mood, normal affect. SKIN: Warm, dry, normal turgor, no rashes or lesions noted Laboratory Results - last 24 hr 11/26/18 11/26/18 11/26/18 05:40 06:20 11:10 Sodium 141 Potassium 3.8 Chloride 109 H Carbon Dioxide 25 Anion Gap 7 L BUN 30 H Creatinine 2.1 H Creat Clearance w eGFR 22.72 POC Glucometer 138 131 Random Glucose 162 H Calcium 7.7 L 11/26/18 17:47 Sodium Potassium Chloride Carbon Dioxide Anion Gap BUN Creatinine Creat Clearance w eGFR POC Glucometer 114 Random Glucose Calcium Active Medications Generic Name Dose Route Start Last Admin Trade Name Freq PRN Reason Stop Dose Admin Acetaminophen 650 mg 11/24/18 07:54 11/26/18 02:08 Tylenol - PO 650 mg Q4H PRN Administration FEVER Al Hydroxide/Mg Hydroxide 30 ml 11/26/18 16:42 Mylanta Oral Suspension - PO Q6H PRN DYSPEPSIA Ascorbic Acid 500 mg 11/26/18 22:00 Vitamin C - PO BID [facility] Aspirin 81 mg 11/27/18 10:00 Ecotrin - PO DAILY [facility] Baclofen 10 mg 11/26/18 22:00 Lioresal - PO TID [facility] Brimonidine Tartrate 1 drop 11/26/18 22:00 Alphagan 0.2% - OU BID [facility] Calcium Carbonate/Cholecalciferol 1 tab 11/26/18 22:00 Os-Jay 500+D - PO TID [facility] Carbidopa/Levodopa 0.5 each 11/23/18 22:00 11/26/18 15:21 Sinemet 25/100 - PO 0.5 each TID [facility] Administration Docusate Sodium 100 mg 11/27/18 10:00 Colace - PO DAILY [facility] Heparin Sodium (Porcine) 5,000 unit 11/23/18 06:00 11/25/18 22:59 Heparin - SQ 5,000 unit TID [facility] Administration Sodium Chloride 1,000 mls @ 75 mls/hr 11/23/18 08:15 11/26/18 09:39 Normal Saline - IV 75 mls/hr ASDIR [facility] Administration Piperacillin Sod/Tazobactam 50 mls @ 100 mls/hr 11/24/18 18:00 11/26/18 18:00 Sod 2.25 gm/ Dextrose IVPB 100 mls/hr Q8H-IV [facility] Administration Protocol Insulin Aspart 1 vial 11/23/18 07:00 11/26/18 17:53 Novolog Vial Sliding Scale - SQ Not Given TIDAC [facility] Protocol Multivitamins/Minerals/Vitamin C 1 tab 11/27/18 10:00 Tab-A-Vit - PO DAILY [facility] Pantoprazole Sodium 40 mg 11/27/18 10:00 Protonix - PO DAILY [facility] Pramipexole Dihydrochloride 0.5 mg 11/26/18 22:00 Mirapex - PO BID [facility] Pregabalin 50 mg 11/23/18 22:00 11/26/18 15:21 Lyrica - PO 50 mg TID [facility] Administration Timolol Maleate 1 drop 11/26/18 22:00 Timoptic 0.5% OU BID [facility] Vancomycin HCl 125 mg 11/23/18 12:00 11/26/18 18:01 Vancomycin Oral Solution PO 125 mg Q6HPO [facility] Administration ASSESSMENT/PLAN: Patient is a 78 year old female with past medical history of IDDM, HTN, SAH, Bladder cancer s/p ileal conduit, DVT and IVC filters, GERD, CKD and Parkinson' s disease, presented with fever, lethargy and diarrhea. #Sepsis 2/2 Complicated pyelonephritis: vs GI source -patient still had episodes of fever overnight -Continue Zosyn 2.25 gm q8h day 3 -Urine culture: Klebsiella, Salmonella, group D strep -Blood culture: negative of any growth -Urology (Dr. Gomez) consulted. REcommendations appreciated. -CTAP bilateral hydronephrosis could be a normal consequence of the conduit ie. ileo-uretero reflux or obstruction at the uretero-ileal junction. -Ileoscopy and iliogram to rule out mechanical obstruction rescheduled for tomorrow. -NPO after midnight. #Epigastric pain: likely GERD -Ranitidine switched to Protonix as pt requests for PPI -Will add Maalox #left side chest pain -has resolved -troponinemia likely due to demand ischemia -Cardiology (Dr. Gaming) consulted. REcommendations appreciated. -Continue ASA 81mg #NATASHA on CKD: stable -BUN/Cr 30/2.1 -likely prerenal from diarrhea and sepsis, and diuretic use -Continue IV fluids -hold diuretics #Diarrhea:resolved #IDDM -Insulin sliding scale -BGM TIDAC #HTN -Hold Lasix and HCTZ #Parkinson's -Continue home Carbidopa/Levodopar 25/100 0.5each TID #FEN -IV Ns @75cc/hr -Electrolytes wnl, routine bmp monitoring -NPO after midnight #Prophylaxis -Heparin 5000units sq tid #Disposition -full code -tele Visit type - Emergency Visit Emergency Visit: Yes ED Registration Date: 11/22/18 Care time: The patient presented to the Emergency Department on the above date and was hospitalized for further evaluation of their emergent condition. - New Patient This patient is new to me today: Yes Date on this admission: 11/27/18 - Critical Care Critical Care patient: No
[2018-11-26] MEDS: PRAMIPEXOLE DIHYDROCHLORIDE 0.5 MG TABLET PO SCH (21:02)
[2018-11-26] MEDS: TIMOLOL 0.5% OPHTHALMIC SOL 5 ML BOTTLE OU SCH (21:03)
[2018-11-26] MEDS: BRIMONIDINE TARTRATE 0.2% OPHTHALMIC 5 ML BOTTLE OU SCH (21:04)
[2018-11-26] MEDS: BACLOFEN 10 MG TABLET (FP) PO SCH (21:04)
[2018-11-26] MEDS: CALCIUM 500MG/VIT-D 200 UNITS COMBO TABLET (FP) PO SCH (21:04)
[2018-11-26] MEDS ORDERED: PATIENT'S OWN MEDICATION (NON-FORMULARY) (Brimonidine Tartrate/Timolol [Combigan 0.2%-0.5% OU SCH (22:00)
[2018-11-26] MEDS ORDERED: ASCORBIC ACID 500 MG TABLET (FP) PO SCH (22:00)
[2018-11-27] MEDS ORDERED: PIPERACILLIN/TAZOBACTAM 2.25 GM VIAL IVPB ONE ×3 (01:28→17:36)
[2018-11-27] MEDS ORDERED: DEXTROSE 5%-WATER - 50 ML IVPB ONE ×3 (01:28→17:37)
[2018-11-27] MEDS: PIPERACILLIN/TAZOB 2.25 GM 2.25 GM in DEXTROSE 5%-WATER - 50 ML IVPB SCH ×3 (02:08→17:38)
[2018-11-27] MEDS ORDERED: PT OWN MED DRAWER 7, Y5N ONE ×2 (06:11→22:58)
[2018-11-27] MEDS: PREGABALIN 50 MG CAPSULE PO SCH ×3 (06:17→23:03)
[2018-11-27] MEDS: VANCOMYCIN 250 MG/5 ML ORAL SOLUTION PO SCH ×2 (06:17→17:35)
[2018-11-27] MEDS: HEPARIN NA (PORCINE) 5,000 UNITS/ML 1ML VIAL SQ SCH ×3 (06:19→23:05)
[2018-11-27] MEDS: BACLOFEN 10 MG TABLET (FP) PO SCH ×3 (06:19→23:05)
[2018-11-27] MEDS: INSULIN SLIDING SCALE (NOVOLOG) 1 VIAL SQ SCH ×2 (06:19→16:52)
[2018-11-27] MEDS: CALCIUM 500MG/VIT-D 200 UNITS COMBO TABLET (FP) PO SCH ×3 (06:19→23:03)
[2018-11-27] MEDS: CARBIDOPA/LEVODOPA 25/100 TABLET (FP) PO SCH ×3 (06:19→23:06)
[2018-11-27 07:02] LABS: HEMATOCRIT 27.6 % (32.4-45.2); HEMOGLOBIN 8.9 GM/dL (10.7-15.3); MCH 28.6 pg (25.7-33.7); MCHC 32.2 g/dl (32.0-36.0); MEAN CELL VOLUME 88.8 fl (80-96); MEAN PLT VOLUME 9.9 fl (7.5-11.1); PLATELET COUNT 116 K/MM3 (134-434); RBC 3.11 M/mm3 (3.60-5.2); RDW 16.3 % (11.6-15.6); WHITE BLOOD COUNT 3.9 K/mm3 (4.0-10.0)
[2018-11-27 07:30] LABS: ANION GAP 7 MMOL/L (8-16); BLOOD UREA NITROGEN 24 mg/dL (7-18); CALCIUM 7.5 mg/dL (8.5-10.1); CHLORIDE 112 mmol/L (98-107); CO2 25 mmol/L (21-32); CREATININE 1.9 mg/dL (0.55-1.3); GLUCOSE,RANDOM 183 mg/dL (74-106); PHOSPHOROUS 3.9 mg/dL (2.5-4.9); POTASSIUM 4.2 mmol/L (3.5-5.1); SODIUM 144 mmol/L (136-145)
[2018-11-27] MEDS: SODIUM CHLORIDE 1,000 ML IV SCH ×2 (09:22→14:29)
[2018-11-27] MEDS: TIMOLOL 0.5% OPHTHALMIC SOL 5 ML BOTTLE OU SCH ×2 (09:23→23:07)
[2018-11-27] MEDS: BRIMONIDINE TARTRATE 0.2% OPHTHALMIC 5 ML BOTTLE OU SCH ×2 (09:23→23:04)
[2018-11-27] MEDS: PRAMIPEXOLE DIHYDROCHLORIDE 0.5 MG TABLET PO SCH (09:23)
[2018-11-27] MEDS ORDERED: DOCUSATE SODIUM 100 MG CAPSULE (FP) PO SCH (10:00)
[2018-11-27] MEDS ORDERED: ASPIRIN COATED 81 MG TABLET.EC PO SCH (10:00)
[2018-11-27] MEDS ORDERED: MULTIVITAMINS (DAILY MVI) TABLET (FP) PO SCH (10:00)
[2018-11-27] MEDS ORDERED: PANTOPRAZOLE 40 MG TABLET (FP) PO SCH (10:00)
--- NOTE | 2018-11-27 10:54 | PN ---
Progress Note (short form) - Note Progress Note: s: no chest pain, palps, dyspnea, dizziness Current Medications Acetaminophen (Tylenol -) 650 mg PO Q4H PRN PRN Reason: FEVER Last Admin: 11/26/18 21:07 Dose: 650 mg Ascorbic Acid (Vitamin C -) 500 mg PO BID [facility] Last Admin: 11/26/18 21:02 Dose: 500 mg Aspirin (Ecotrin -) 81 mg PO DAILY [facility] Baclofen (Lioresal -) 10 mg PO TID [facility] Last Admin: 11/27/18 06:19 Dose: Not Given Brimonidine Tartrate (Alphagan 0.2% -) 1 drop OU BID [facility] Last Admin: 11/27/18 09:23 Dose: 1 drop Calcium Carbonate/Cholecalciferol (Os-Jay 500+D -) 1 tab PO TID [facility] Last Admin: 11/27/18 06:19 Dose: Not Given Carbidopa/Levodopa (Sinemet 25/100 -) 0.5 each PO TID [facility] Last Admin: 11/27/18 06:19 Dose: Not Given Docusate Sodium (Colace -) 100 mg PO DAILY [facility] Heparin Sodium (Porcine) (Heparin -) 5,000 unit SQ TID [facility] Last Admin: 11/27/18 06:19 Dose: Not Given Sodium Chloride (Normal Saline -) 1,000 mls @ 75 mls/hr IV ASDIR [facility] Last Admin: 11/27/18 09:22 Dose: 75 mls/hr Piperacillin Sod/Tazobactam (Sod 2.25 gm/ Dextrose) 50 mls @ 100 mls/hr IVPB Q8H-IV [facility]; Protocol Last Admin: 11/27/18 09:24 Dose: 100 mls/hr Insulin Aspart (Novolog Vial Sliding Scale -) 1 vial SQ TIDAC [facility]; Protocol Last Admin: 11/27/18 06:19 Dose: Not Given Multivitamins/Minerals/Vitamin C (Tab-A-Vit -) 1 tab PO DAILY [facility] Pantoprazole Sodium (Protonix -) 40 mg PO DAILY [facility] Last Admin: 11/27/18 09:23 Dose: 40 mg Pramipexole Dihydrochloride (Mirapex -) 0.5 mg PO BID [facility] Last Admin: 11/27/18 09:23 Dose: 0.5 mg Pregabalin (Lyrica -) 50 mg PO TID [facility] Last Admin: 11/27/18 06:17 Dose: 50 mg Sucralfate (Carafate Oral Suspension -) 1 gm PO BID [facility] Timolol Maleate (Timoptic 0.5%) 1 drop OU BID [facility] Last Admin: 11/27/18 09:23 Dose: 1 drop Vancomycin HCl (Vancomycin Oral Solution) 125 mg PO Q6HPO [facility] Last Admin: 11/27/18 06:17 Dose: 125 mg Vital Signs: Vital Signs Period Temp Pulse Resp BP Sys/Adorno Pulse Ox Last 24 Hr 98.2 F-100.6 F 61-97 18-20 105-166/51-97 92 Constitutional: Yes: No Distress, Obese Eyes: No: Sclera Icterus HENT: No: Nasal Congestion Neck: No: Decreased ROM Respiratory: Yes: CTA Bilaterally. No: Accessory Muscle Use, Rales, Wheezes Gastrointestinal: Yes: Normal Bowel Sounds. No: Distention, Hepatomegaly, Palpable Mass, Tenderness Cardiovascular: Yes: Regular Rate and Rhythm (soft heart sounds) JVD: No Carotid Bruit: No PMI: Non-Displaced Heart Sounds: Yes: S1, S2. No: Gallop Murmur: No: Systolic Murmur, Diastolic Murmur Extremities: No: Cool, Cyanosis Edema: No Peripheral Pulses: 2+ Left Carotid, 2+ Right Carotid, 2+ Left Doralis Pedis, 2+ Right Dorsalis Pedis Integumentary: No: Jaundice Neurological: Yes: Alert, Oriented (x3) Psychiatric: No: Agitated ekg: SR, RBBB,no sig change vs prior echo 08/2018: nl lv/rv, mild mr cxr: no sig chf mibi 11/2018 small to mod zone of inferolateral and lateral reversible defect c/ w mild intensity ischemia, EF 59% echo 11/2018 nl LV function, EF 55-60%, grade I diastolic dysufnction, PASP at least 41 mmHg tele: sinus a/p: uti/pyelo: -plan per ID, urology presumed cad, cp: -recent admit for cp. echo then with nl EF. Recent mibi with mild ischemia and pt/family opted for med management, no cath. -currently no cp, no signs acs, trops unremarkable -cont asa, monitor for new sxs - dc tele HTN: -cont home meds DM: -per primary MD CKD: -currently stable renal fxn
[2018-11-27] MEDS ORDERED: MIDAZOLAM HCL 2 MG/2 ML SINGLE DOSE VIAL ONE (12:13)
[2018-11-27] MEDS ORDERED: PROPOFOL 20 ML ONE (12:22)
--- NOTE | 2018-11-27 12:52 | OP ---
Operative Note - Note: Operative Date: 11/27/18 Pre-Operative Diagnosis: Hydronephrosis Operation: Ileostogram, Ileoscopy Findings: Dilated rt. ureter with good reflux, faintly seen left ureter, does not appear to be dilated. Post-Operative Diagnosis: Same as Pre-op Surgeon: Hai Velez Anesthesia: Fractional
[2018-11-27] MEDS ORDERED: ACETAMINOPHEN 325 MG TABLET (FP) PO PRN (13:25)
--- NOTE | 2018-11-27 13:47 | OP ---
DATE OF OPERATION: 11/27/2018 SURGEON: Hai Velez MD ANESTHESIA: Fractional. PREOPERATIVE DIAGNOSIS: Hydronephrosis. POSTOPERATIVE DIAGNOSIS: Hydronephrosis. PROCEDURE: Ileostogram and ileoscopy. FINDINGS: Ileostogram shows decent reflux on the right side with dilated ureter. visualization of the left ureter noted. The scopy could not be performed because of tight opening entering into the abdominal cavity. PROCEDURE: Patient in the supine position under anesthesia was prepped and draped in the usual manner. Previously placed conduit bag was removed. Skin was noted to be excoriated. tapes were applied. With considerable difficulty the ileostomy bag was removed. Then ileostogram was performed using a Connelly catheter and blowing the balloon up, which shows a good conduit. Then finger exploration was done, shows a very tight entrance into the abdomen. Patient is extremely obese which made it very difficult and the findings were as noted above. It was decided at this point to leave the patient alone and observe due to fear of any damage to the ileostomy. During the procedure copious amount of urine was noted to be coming out of the ileostomy loop. The instruments were withdrawn and patient left the operating room in satisfactory condition. Chris AGUILERA/[id number]
[2018-11-27] MEDS: DOCUSATE SODIUM 100 MG CAPSULE (FP) PO SCH (14:30)
[2018-11-27] MEDS: ASCORBIC ACID 500 MG TABLET (FP) PO SCH ×2 (14:31→23:03)
--- NOTE | 2018-11-27 17:31 | PN ---
Teaching Attending Note Name of Resident: Humaira Valero ATTENDING PHYSICIAN STATEMENT I saw and evaluated the patient. I reviewed the resident's note and discussed the case with the resident. I agree with the resident's findings and plan as documented. SUBJECTIVE: no fever or chills. No MASON . no ear pain, no neck pain, has Abd pain OBJECTIVE: NAD, awake, alert. cooperative HEENT: MMM. CV: RRR, 2/6 SM at base Lungs: CTAB Abd: obese, soft, TTP in all quadrants , no rebound. yellow urine with sediment in collecting bag. umbilical hernia .NL BS Ext: no edema or erythema. surgical scar on anterior R knee. MS: TTP all over her body. no TTP over the mastoids, neck and has nl tympanic membrane ASSESSMENT AND PLAN: 77 y/o lady with h/o HTN, DM, Bladder cancer s/p ileal conduit, SBO, abd wall hernias, SAH,salmonella enteritis and bacteremia, + stress test , CKD ( Cr base line 1.5),` DVTs and IVC filter who presented with fever,AMS and diarrhea . 1- Sepsis: due to pyelnephritis. urine cx Klebsiella, salmonella and group D strep. - cont zosyn - Ileoscopy was not possible, but ileogaphy showed dilated R ureter but faint visualization of L ureter. Need further recs form urology. - Salmonella in urine might raise suspicion for connection between bowel and urinary tract. initial CT with gastrographine did not show any fistula. Ileography did not show any. will discuss further with ID and Uro for next step 2- Diarrhea: No stooling since admission - will d/w GI the need for vanco as there is no colitis on Ct and no colon dilation and no more diarrhea 3- L sided CP: with + stress test 11/19 with reversible lateral ischemia. Cath was declined by family then. - Cont asa. - Appreciate card recs. 4- NATASHA on CKD: due to volume depletion in setting of worsening chronic diarrhea and fever while on lasix and HCTZ - IV hydration. consider decreasing IVF tomorrow - hold diuretics 5- DM: cont SSI at dc , she will need lower insulin doses due to hypoglycemia as out pt 6- HTN: hold lasix and HCTZ 7- Parkinson's : cont CArbidopa/Levo dopa DVT Px: heparin sq
--- NOTE | 2018-11-27 18:47 | PN ---
Physical Exam: SUBJECTIVE: Patient seen and examined at bedside this morning. No acute events overnight. Patient has no new complaints. OBJECTIVE: Vital Signs Temperature 98.4 F 11/27/18 15:00 Pulse Rate 86 11/27/18 15:00 Respiratory Rate 18 11/27/18 15:00 Blood Pressure 143/71 11/27/18 15:00 O2 Sat by Pulse Oximetry (%) 96 11/27/18 13:40 GENERAL: The patient is awake, alert, and fully oriented, in no acute distress. HEAD: Normal with no signs of trauma. EYES: PERRLA, EOMI, sclera anicteric, conjunctiva clear. ENT: Ears normal, nares patent, oropharynx clear without exudates, moist mucous membranes. NECK: Trachea midline, full range of motion, supple. LUNGS: Breath sounds equal, clear to auscultation bilaterally. HEART: Regular rate and rhythm, S1, S2 without murmur, rub or gallop. ABDOMEN: Soft, nontender, nondistended, normoactive bowel sounds. EXTREMITIES: 2+ pulses, warm, well-perfused, no edema. PSYCH: Normal mood, normal affect. SKIN: Warm, dry, normal turgor, no rashes or lesions noted Laboratory Results - last 24 hr 11/27/18 11/27/18 11/27/18 06:15 06:30 06:30 WBC 3.9 L RBC 3.11 L Hgb 8.9 L Hct 27.6 L MCV 88.8 MCH 28.6 MCHC 32.2 RDW 16.3 H Plt Count 116 L MPV 9.9 Sodium 144 Potassium 4.2 Chloride 112 H Carbon Dioxide 25 Anion Gap 7 L BUN 24 H Creatinine 1.9 H Creat Clearance w eGFR 25.50 POC Glucometer 163 Random Glucose 183 H Calcium 7.5 L Phosphorus 3.9 Magnesium 2.0 11/27/18 16:48 WBC RBC Hgb Hct MCV MCH MCHC RDW Plt Count MPV Sodium Potassium Chloride Carbon Dioxide Anion Gap BUN Creatinine Creat Clearance w eGFR POC Glucometer 197 Random Glucose Calcium Phosphorus Magnesium Active Medications Generic Name Dose Route Start Last Admin Trade Name Freq PRN Reason Stop Dose Admin Acetaminophen 650 mg 11/27/18 13:25 Tylenol - PO Q4H PRN FEVER Ascorbic Acid 500 mg 11/27/18 22:00 11/27/18 14:31 Vitamin C - PO 500 mg BID GLORIA Administration Aspirin 81 mg 11/28/18 10:00 Ecotrin - PO DAILY [facility] Baclofen 10 mg 11/27/18 14:00 11/27/18 14:29 Lioresal - PO 10 mg TID GLORIA Administration Brimonidine Tartrate 1 drop 11/27/18 22:00 Alphagan 0.2% - OU BID GLORIA Calcium Carbonate/Cholecalciferol 1 tab 11/27/18 14:00 11/27/18 14:29 Os-Jay 500+D - PO 1 tab TID GLORIA Administration Carbidopa/Levodopa 0.5 each 11/27/18 14:00 11/27/18 14:30 Sinemet 25/100 - PO 0.5 each TID [facility] Administration Docusate Sodium 100 mg 11/28/18 10:00 11/27/18 14:30 Colace - PO 100 mg DAILY GLORIA Administration Furosemide 40 mg 11/28/18 10:00 Lasix - PO DAILY [facility] Heparin Sodium (Porcine) 5,000 unit 11/27/18 14:00 11/27/18 14:28 Heparin - SQ 5,000 unit TID GLORIA Administration Hydrochlorothiazide 12.5 mg 11/28/18 10:00 Hctz - PO DAILY GLORIA Sodium Chloride 1,000 mls @ 75 mls/hr 11/27/18 13:25 11/27/18 14:29 Normal Saline - IV 75 mls/hr ASDIR GLORIA Administration Piperacillin Sod/Tazobactam 50 mls @ 100 mls/hr 11/27/18 18:00 11/27/18 17:38 Sod 2.25 gm/ Dextrose IVPB 100 mls/hr Q8H-IV GLORIA Administration Protocol Insulin Aspart 1 vial 11/27/18 16:30 11/27/18 16:52 Novolog Vial Sliding Scale - SQ 2 unit TIDAC [facility] Administration Protocol Insulin Aspart 27 units 11/27/18 22:00 Novolog Vial SQ HS [facility] Insulin Aspart 30 units 11/28/18 07:00 Novolog Vial SQ AM [facility] Multivitamins/Minerals/Vitamin C 1 tab 11/28/18 10:00 11/27/18 14:31 Tab-A-Vit - PO 1 tab DAILY [facility]ORIA Administration Pantoprazole Sodium 40 mg 11/28/18 10:00 Protonix - PO DAILY [facility] Pramipexole Dihydrochloride 0.5 mg 11/27/18 22:00 Mirapex - PO BID [facility] Pregabalin 50 mg 11/27/18 14:00 11/27/18 14:29 Lyrica - PO 50 mg TID [facility] Administration Sucralfate 1 gm 11/27/18 22:00 Carafate Oral Suspension - PO BID [facility] Timolol Maleate 1 drop 11/27/18 22:00 Timoptic 0.5% OU BID [facility] Vancomycin HCl 125 mg 11/27/18 18:00 11/27/18 17:35 Vancomycin Oral Solution PO 125 mg Q6HPO GLORIA Administration ASSESSMENT/PLAN: Patient is a 78 year old female with past medical history of IDDM, HTN, SAH, Bladder cancer s/p ileal conduit, DVT and IVC filters, GERD, CKD and Parkinson' s disease, presented with fever, lethargy and diarrhea. #Sepsis 2/2 Complicated pyelonephritis: vs GI source -patient still had episodes of fever overnight (Tmax 100.6) -Continue Zosyn 2.25 gm q8h day 4 -Urine culture: Klebsiella, Salmonella, group D strep -Blood culture: negative of any growth -ID (Dr. Fulton) consulted. -Urology (Dr. Gomez) consulted. Recommendations appreciated. -s/p Ileogram and ileoscopy done: Dilated right ureter with good reflux, faintly seen left ureter, does not appear to be dilated. #Epigastric pain: likely GERD -Ranitidine switched to Protonix as pt requests for PPI -Will add Carafate #left side chest pain -has resolved -troponinemia likely due to demand ischemia -Cardiology (Dr. Gaming) consulted. REcommendations appreciated. -Continue ASA 81mg #NATASHA on CKD: stable -BUN/Cr 30/2.1 --> 24/1.9 -likely prerenal from diarrhea and sepsis, and diuretic use -Continue IV fluids -hold diuretics #Diarrhea:resolved #IDDM -Insulin sliding scale -BGM TIDAC #HTN -Hold Lasix and HCTZ #Parkinson's -Continue home Carbidopa/Levodopa 25/100 0.5each TID #FEN -IV Ns @75cc/hr -Electrolytes wnl, routine bmp monitoring -Diabetic diet #Prophylaxis -Heparin 5000units sq tid #Disposition -full code -tele Visit type - Emergency Visit Emergency Visit: Yes ED Registration Date: 11/22/18 Care time: The patient presented to the Emergency Department on the above date and was hospitalized for further evaluation of their emergent condition. - New Patient This patient is new to me today: Yes Date on this admission: 11/27/18 - Critical Care Critical Care patient: No
[2018-11-27] MEDS ORDERED: INSULIN (NOVOLOG) ASPART 100 UNITS/ML 10ML VIAL SQ SCH (22:00)
[2018-11-27] MEDS ORDERED: PRAMIPEXOLE DIHYDROCHLORIDE 0.5 MG TABLET PO SCH (22:00)
[2018-11-27] MEDS ORDERED: SUCRALFATE 1 GM/10 ML UNIT DOSE CUPS PO SCH (22:00)
[2018-11-27] MEDS: SUCRALFATE 1 GM/10 ML UNIT DOSE CUPS PO SCH (23:03)
[2018-11-27] MEDS ORDERED: INSULIN (NOVOLOG MIX 70/30) 100 UNITS/ML MDV SQ SCH (23:30)
[2018-11-28] MEDS ORDERED: DEXTROSE 5%-WATER - 50 ML IVPB ONE ×2 (01:17→09:47)
[2018-11-28] MEDS ORDERED: PIPERACILLIN/TAZOBACTAM 2.25 GM VIAL IVPB ONE ×3 (01:17→20:55)
[2018-11-28] MEDS: PIPERACILLIN/TAZOB 2.25 GM 2.25 GM in DEXTROSE 5%-WATER - 50 ML IVPB SCH ×3 (01:32→17:33)
[2018-11-28] MEDS: VANCOMYCIN 250 MG/5 ML ORAL SOLUTION PO SCH ×4 (01:32→17:32)
[2018-11-28] MEDS: HEPARIN NA (PORCINE) 5,000 UNITS/ML 1ML VIAL SQ SCH ×3 (05:55→22:09)
[2018-11-28] MEDS: PREGABALIN 50 MG CAPSULE PO SCH ×3 (05:56→22:08)
[2018-11-28] MEDS: CALCIUM 500MG/VIT-D 200 UNITS COMBO TABLET (FP) PO SCH ×3 (05:56→22:08)
[2018-11-28] MEDS: BACLOFEN 10 MG TABLET (FP) PO SCH (05:57)
[2018-11-28] MEDS: CARBIDOPA/LEVODOPA 25/100 TABLET (FP) PO SCH ×3 (05:57→22:42)
[2018-11-28] MEDS: SODIUM CHLORIDE 1,000 ML IV SCH ×2 (05:59→17:03)
[2018-11-28] MEDS ORDERED: INSULIN (NOVOLOG MIX 70/30) 100 UNITS/ML MDV SQ SCH (07:00)
[2018-11-28] MEDS ORDERED: INSULIN (NOVOLOG) ASPART 100 UNITS/ML 10ML VIAL SQ SCH (07:00)
[2018-11-28 07:03] LABS: HEMATOCRIT 25.3 % (32.4-45.2); HEMOGLOBIN 8.1 GM/dL (10.7-15.3); MCH 28.5 pg (25.7-33.7); MCHC 32.1 g/dl (32.0-36.0); MEAN CELL VOLUME 88.7 fl (80-96); MEAN PLT VOLUME 9.8 fl (7.5-11.1); PLATELET COUNT 129 K/MM3 (134-434); RBC 2.85 M/mm3 (3.60-5.2); RDW 15.9 % (11.6-15.6); WHITE BLOOD COUNT 4.3 K/mm3 (4.0-10.0)
[2018-11-28 07:41] LABS: ANION GAP 6 MMOL/L (8-16); BLOOD UREA NITROGEN 20 mg/dL (7-18); CALCIUM 7.6 mg/dL (8.5-10.1); CHLORIDE 110 mmol/L (98-107); CO2 24 mmol/L (21-32); CREATININE 1.6 mg/dL (0.55-1.3); GLUCOSE,RANDOM 181 mg/dL (74-106); PHOSPHOROUS 3.4 mg/dL (2.5-4.9); POTASSIUM 4.1 mmol/L (3.5-5.1); SODIUM 140 mmol/L (136-145)
[2018-11-28] MEDS: INSULIN SLIDING SCALE (NOVOLOG) 1 VIAL SQ SCH ×3 (07:49→17:32)
[2018-11-28] MEDS ORDERED: morphine CARPU-JECT 2 MG/1 ML DISP.SYRIN IVPUSH ONE (08:00)
[2018-11-28] MEDS ORDERED: MORPHINE SULFATE 2 MG/ML VIAL IVPUSH ONE (08:00)
[2018-11-28] MEDS: BRIMONIDINE TARTRATE 0.2% OPHTHALMIC 5 ML BOTTLE OU SCH ×2 (09:34→22:10)
[2018-11-28] MEDS: SUCRALFATE 1 GM/10 ML UNIT DOSE CUPS PO SCH ×2 (09:34→22:08)
[2018-11-28] MEDS: TIMOLOL 0.5% OPHTHALMIC SOL 5 ML BOTTLE OU SCH ×2 (09:35→22:10)
[2018-11-28] MEDS: PANTOPRAZOLE 40 MG TABLET (FP) PO SCH (09:35)
[2018-11-28] MEDS: DOCUSATE SODIUM 100 MG CAPSULE (FP) PO SCH (09:35)
[2018-11-28] MEDS: ASCORBIC ACID 500 MG TABLET (FP) PO SCH ×2 (09:35→22:08)
[2018-11-28] MEDS: ASPIRIN COATED 81 MG TABLET.EC PO SCH (09:35)
[2018-11-28] MEDS ORDERED: FUROSEMIDE 40 MG TABLET (FP) PO SCH (10:00)
[2018-11-28] MEDS ORDERED: MULTIVITAMINS (DAILY MVI) TABLET (FP) PO SCH (10:00)
[2018-11-28] MEDS ORDERED: HYDROCHLOROTHIAZIDE 12.5 MG CAPSULE (FP) PO SCH (10:00)
[2018-11-28] MEDS: LACTOBACILLUS ACIDOPHILUS 1 TABLET PO SCH ×2 (10:00→22:07)
--- NOTE | 2018-11-28 11:05 | EKG ---
Test Reason : Blood Pressure : / mmHG Vent. Rate : 062 BPM Atrial Rate : 062 BPM P-R Int : 144 ms QRS Dur : 126 ms QT Int : 466 ms P-R-T Axes : 067 -14 020 degrees QTc Int : 472 ms NORMAL SINUS RHYTHM RIGHT BUNDLE BRANCH BLOCK ABNORMAL ECG WHEN COMPARED WITH ECG OF 28-NOV-2018 06:26, NO SIGNIFICANT CHANGE WAS FOUND Confirmed by RICARDO LOPEZ MD ([id number]) on 11/28/2018 11:05:39 AM Referred By: Confirmed By:RICARDO LOPEZ MD
--- NOTE | 2018-11-28 11:50 | PN ---
Progress Note (short form) - Note Progress Note: s: chest pain with moving L arm, turning in bed. no palps, dyspnea, dizziness Current Medications Acetaminophen (Tylenol -) 650 mg PO Q4H PRN PRN Reason: FEVER Ascorbic Acid (Vitamin C -) 500 mg PO BID ON [facility] Last Admin: 11/28/18 09:35 Dose: 500 mg Aspirin (Ecotrin -) 81 mg PO DAILY [facility] Last Admin: 11/28/18 09:35 Dose: 81 mg Brimonidine Tartrate (Alphagan 0.2% -) 1 drop OU BID ON [facility] Last Admin: 11/28/18 09:34 Dose: 1 drop Calcium Carbonate/Cholecalciferol (Os-Jay 500+D -) 1 tab PO TID ON [facility] Last Admin: 11/28/18 05:56 Dose: 1 tab Carbidopa/Levodopa (Sinemet 25/100 -) 0.5 each PO TID ON [facility] Last Admin: 11/28/18 05:57 Dose: 0.5 each Docusate Sodium (Colace -) 100 mg PO DAILY [facility] Last Admin: 11/28/18 09:35 Dose: 100 mg Heparin Sodium (Porcine) (Heparin -) 5,000 unit SQ TID ON [facility] Last Admin: 11/28/18 05:55 Dose: 5,000 unit Sodium Chloride (Normal Saline -) 1,000 mls @ 75 mls/hr IV ASDIR ON LICENSE [facility] Last Admin: 11/28/18 05:59 Dose: 75 mls/hr Piperacillin Sod/Tazobactam (Sod 2.25 gm/ Dextrose) 50 mls @ 100 mls/hr IVPB Q8H-IV ON [facility]; Protocol Last Admin: 11/28/18 01:32 Dose: 100 mls/hr Insulin Aspart (Novolog Vial Sliding Scale -) 1 vial SQ TIDAC ON [facility]; Protocol Last Admin: 11/28/18 07:49 Dose: Not Given Lactobacillus Acidophilus (Bacid -) 1 tab PO BID ON [facility] Pantoprazole Sodium (Protonix -) 40 mg PO DAILY [facility] Last Admin: 11/28/18 09:35 Dose: 40 mg Pregabalin (Lyrica -) 50 mg PO TID ON [facility] Last Admin: 11/28/18 05:56 Dose: 50 mg Sucralfate (Carafate Oral Suspension -) 1 gm PO BID ON [facility] Last Admin: 11/28/18 09:34 Dose: 1 gm Timolol Maleate (Timoptic 0.5%) 1 drop OU BID ON [facility] Last Admin: 11/28/18 09:35 Dose: 1 drop Vancomycin HCl (Vancomycin Oral Solution) 125 mg PO Q6HPO ON [facility] OF [facility] Last Admin: 11/28/18 05:57 Dose: 125 mg Vital Signs: Vital Signs Period Temp Pulse Resp BP Sys/Adorno Pulse Ox Last 24 Hr 97.8 F-98.5 F 58-86 16-20 114-143/49-96 96-100 Constitutional: Yes: No Distress, Obese Eyes: No: Sclera Icterus HENT: No: Nasal Congestion Neck: No: Decreased ROM Respiratory: Yes: CTA Bilaterally. No: Accessory Muscle Use, Rales, Wheezes Gastrointestinal: Yes: Normal Bowel Sounds. No: Distention, Hepatomegaly, Palpable Mass, Tenderness Cardiovascular: Yes: Regular Rate and Rhythm (soft heart sounds) JVD: No Carotid Bruit: No PMI: Non-Displaced Heart Sounds: Yes: S1, S2. No: Gallop Murmur: No: Systolic Murmur, Diastolic Murmur Extremities: No: Cool, Cyanosis Edema: No Peripheral Pulses: 2+ Left Carotid, 2+ Right Carotid, 2+ Left Doralis Pedis, 2+ Right Dorsalis Pedis Integumentary: No: Jaundice Neurological: Yes: Alert, Oriented (x3) Psychiatric: No: Agitated ekg: SR, RBBB,no sig change vs prior echo 08/2018: nl lv/rv, mild mr cxr: no sig chf mibi 11/2018 small to mod zone of inferolateral and lateral reversible defect c/ w mild intensity ischemia, EF 59% echo 11/2018 nl LV function, EF 55-60%, grade I diastolic dysufnction, PASP at least 41 mmHg tele: sinus a/p: uti/pyelo: -plan per ID, urology presumed cad, cp: -recent admit for cp. echo then with nl EF. Recent mibi with mild ischemia and pt/family opted for med management, no cath. -no signs acs, trops unremarkable -CP today worse with position changes, palpation - likely MSK -cont asa, monitor for new sxs -dc tele HTN: -cont home meds DM: -per primary MD CKD: -currently stable renal fxn
--- NOTE | 2018-11-28 14:05 | PN ---
Progress Note, Physician - Current Medication List Current Medications: Active Medications Acetaminophen (Tylenol -) 650 mg PO Q4H PRN PRN Reason: FEVER Ascorbic Acid (Vitamin C -) 500 mg PO BID [facility] Last Admin: 11/28/18 09:35 Dose: 500 mg Aspirin (Ecotrin -) 81 mg PO DAILY [facility] Last Admin: 11/28/18 09:35 Dose: 81 mg Brimonidine Tartrate (Alphagan 0.2% -) 1 drop OU BID [facility] Last Admin: 11/28/18 09:34 Dose: 1 drop Calcium Carbonate/Cholecalciferol (Os-Jay 500+D -) 1 tab PO TID [facility] Last Admin: 11/28/18 05:56 Dose: 1 tab Carbidopa/Levodopa (Sinemet 25/100 -) 0.5 each PO TID [facility] Last Admin: 11/28/18 05:57 Dose: 0.5 each Docusate Sodium (Colace -) 100 mg PO DAILY [facility] Last Admin: 11/28/18 09:35 Dose: 100 mg Heparin Sodium (Porcine) (Heparin -) 5,000 unit SQ TID [facility] Last Admin: 11/28/18 05:55 Dose: 5,000 unit Sodium Chloride (Normal Saline -) 1,000 mls @ 75 mls/hr IV ASDIR [facility] Last Admin: 11/28/18 05:59 Dose: 75 mls/hr Piperacillin Sod/Tazobactam (Sod 2.25 gm/ Dextrose) 50 mls @ 100 mls/hr IVPB Q8H-IV [facility]; Protocol Last Admin: 11/28/18 10:30 Dose: 100 mls/hr Insulin Aspart (Novolog Vial Sliding Scale -) 1 vial SQ TIDAC [facility]; Protocol Last Admin: 11/28/18 12:11 Dose: 2 unit Lactobacillus Acidophilus (Bacid -) 1 tab PO BID [facility] Last Admin: 11/28/18 10:00 Dose: 1 tab Pantoprazole Sodium (Protonix -) 40 mg PO DAILY [facility] Last Admin: 11/28/18 09:35 Dose: 40 mg Pregabalin (Lyrica -) 50 mg PO TID [facility] Last Admin: 11/28/18 05:56 Dose: 50 mg Sucralfate (Carafate Oral Suspension -) 1 gm PO BID [facility] Last Admin: 11/28/18 09:34 Dose: 1 gm Timolol Maleate (Timoptic 0.5%) 1 drop OU BID [facility] Last Admin: 11/28/18 09:35 Dose: 1 drop Vancomycin HCl (Vancomycin Oral Solution) 125 mg PO Q6HPO [facility] Last Admin: 11/28/18 05:57 Dose: 125 mg - Objective Vital Signs: Vital Signs Temperature 98.2 F 11/28/18 14:00 Pulse Rate 63 11/28/18 14:00 Respiratory Rate 18 11/28/18 14:00 Blood Pressure 139/70 11/28/18 14:00 O2 Sat by Pulse Oximetry (%) 98 11/28/18 09:00 Labs: CBC, BMP 11/28/18 06:30 11/28/18 06:30 INR, PTT INR 1.26 (0.83-1.09) H 11/22/18 21:10
--- NOTE | 2018-11-28 14:26 | PN ---
Physical Exam: SUBJECTIVE: Patient seen and examined at bedside this morning. Patient reported left sided sharp chest pain this morning, radiating down the left arm. EKG shows no change previous ones and trop unremarkable. Otherwise no episodes of fever overnight, patient denies headache, dizziness, SOB, abdominal pain, diarrhea, urinary symptoms. OBJECTIVE: Vital Signs Temperature 98.2 F 11/28/18 14:00 Pulse Rate 63 11/28/18 14:00 Respiratory Rate 18 11/28/18 14:00 Blood Pressure 139/70 11/28/18 14:00 O2 Sat by Pulse Oximetry (%) 98 11/28/18 09:00 GENERAL: The patient is awake, alert, and fully oriented, in no acute distress. HEAD: Normal with no signs of trauma. EYES: PERRLA, EOMI, sclera anicteric, conjunctiva clear. ENT: Ears normal, nares patent, oropharynx clear without exudates, moist mucous membranes. NECK: Trachea midline, full range of motion, supple. LUNGS: Breath sounds equal, clear to auscultation bilaterally. HEART: Regular rate and rhythm, S1, S2 without murmur, rub or gallop. ABDOMEN: Soft, nontender, nondistended, normoactive bowel sounds. EXTREMITIES: 2+ pulses, warm, well-perfused, no edema. PSYCH: Normal mood, normal affect. SKIN: Warm, dry, normal turgor, no rashes or lesions noted Laboratory Results - last 24 hr 11/27/18 11/27/18 11/28/18 16:48 23:01 05:52 WBC RBC Hgb Hct MCV MCH MCHC RDW Plt Count MPV Sodium Potassium Chloride Carbon Dioxide Anion Gap BUN Creatinine Creat Clearance w eGFR POC Glucometer 197 156 162 Random Glucose Calcium Phosphorus Magnesium Troponin I 11/28/18 11/28/18 11/28/18 06:30 06:30 12:03 WBC 4.3 RBC 2.85 L Hgb 8.1 L Hct 25.3 L MCV 88.7 MCH 28.5 MCHC 32.1 RDW 15.9 H Plt Count 129 L MPV 9.8 Sodium 140 Potassium 4.1 Chloride 110 H Carbon Dioxide 24 Anion Gap 6 L BUN 20 H Creatinine 1.6 H Creat Clearance w eGFR 31.09 POC Glucometer 189 Random Glucose 181 H Calcium 7.6 L Phosphorus 3.4 Magnesium 2.0 Troponin I < 0.02 Active Medications Generic Name Dose Route Start Last Admin Trade Name Beatrice PRN Reason Stop Dose Admin Acetaminophen 650 mg 11/27/18 13:25 Tylenol - PO Q4H PRN FEVER Ascorbic Acid 500 mg 11/27/18 22:00 11/28/18 09:35 Vitamin C - PO 500 mg BID GLORIA Administration Aspirin 81 mg 11/28/18 10:00 11/28/18 09:35 Ecotrin - PO 81 mg DAILY GLORIA Administration Brimonidine Tartrate 1 drop 11/27/18 22:00 11/28/18 09:34 Alphagan 0.2% - OU 1 drop BID GLORIA Administration Calcium Carbonate/Cholecalciferol 1 tab 11/27/18 14:00 11/28/18 14:15 Os-Jay 500+D - PO 1 tab TID GLORIA Administration Carbidopa/Levodopa 0.5 each 11/27/18 14:00 11/28/18 14:18 Sinemet 25/100 - PO 0.5 each TID GLORIA Administration Docusate Sodium 100 mg 11/28/18 10:00 11/28/18 09:35 Colace - PO 100 mg DAILY GLORIA Administration Heparin Sodium (Porcine) 5,000 unit 11/27/18 14:00 11/28/18 14:15 Heparin - SQ 5,000 unit TID GLORIA Administration Sodium Chloride 1,000 mls @ 75 mls/hr 11/27/18 13:25 11/28/18 05:59 Normal Saline - IV 75 mls/hr ASDIR GL[facility]IA Administration Piperacillin Sod/Tazobactam 50 mls @ 100 mls/hr 11/27/18 18:00 11/28/18 10:30 Sod 2.25 gm/ Dextrose IVPB 100 mls/hr Q8H-IV GLORIA Administration Protocol Insulin Aspart 1 vial 11/27/18 16:30 11/28/18 12:11 Novolog Vial Sliding Scale - SQ 2 unit TIDAC [facility]IA Administration Protocol Lactobacillus Acidophilus 1 tab 11/28/18 10:00 11/28/18 10:00 Bacid - PO 1 tab BID GLORIA Administration Pantoprazole Sodium 40 mg 11/28/18 10:00 11/28/18 09:35 Protonix - PO 40 mg DAILY GLORIA Administration Pregabalin 50 mg 11/27/18 14:00 11/28/18 14:15 Lyrica - PO 50 mg TID GLORIA Administration Sucralfate 1 gm 11/27/18 22:00 11/28/18 09:34 Carafate Oral Suspension - PO 1 gm BID GLORIA Administration Timolol Maleate 1 drop 11/27/18 22:00 11/28/18 09:35 Timoptic 0.5% OU 1 drop BID GLORIA Administration Vancomycin HCl 125 mg 11/27/18 18:00 11/28/18 14:14 Vancomycin Oral Solution PO 125 mg Q6HPO GLORIA Administration ASSESSMENT/PLAN: Patient is a 78 year old female with past medical history of IDDM, HTN, SAH, Bladder cancer s/p ileal conduit, DVT and IVC filters, GERD, CKD and Parkinson' s disease, presented with fever, lethargy and diarrhea. #Sepsis 2/2 Complicated pyelonephritis: vs GI source -patient still had episodes of fever overnight (Tmax 100.6) -Continue Zosyn 2.25 gm q8h day 5 -Urine culture: Klebsiella, Salmonella, group D strep -Blood culture: negative of any growth -ID (Dr. Fulton) consulted. Recommendations appreciated. -Urology (Dr. Gomez) consulted. Recommendations appreciated. -s/p Ileogram and ileoscopy done: Dilated right ureter with good reflux, faintly seen left ureter, does not appear to be dilated. #Epigastric pain: likely GERD -Ranitidine switched to Protonix as pt requests for PPI -Will add Carafate #left side chest pain -had another episode today -EKG and trop unremarkable, likely MSK -troponinemia likely due to demand ischemia -Cardiology (Dr. Gaming) consulted. REcommendations appreciated. -Continue ASA 81mg -Discontinue tele #NATASHA on CKD: stable -BUN/Cr 30/2.1 --> 24/1.9 -likely prerenal from diarrhea and sepsis, and diuretic use -Continue IV fluids -hold diuretics #Diarrhea:resolved #IDDM -Insulin sliding scale -BGM TIDAC #HTN -Hold Lasix and HCTZ #Parkinson's -Continue home Carbidopa/Levodopa 25/100 0.5each TID #FEN -IV Ns @50cc/hr -Electrolytes wnl, routine bmp monitoring -Diabetic diet #Prophylaxis -Heparin 5000units sq tid #Disposition -full code -tele discontinued. Visit type - Emergency Visit Emergency Visit: Yes ED Registration Date: 11/22/18 Care time: The patient presented to the Emergency Department on the above date and was hospitalized for further evaluation of their emergent condition. - New Patient This patient is new to me today: Yes Date on this admission: 11/28/18 - Critical Care Critical Care patient: No
--- NOTE | 2018-11-28 17:44 | PN ---
Teaching Attending Note Name of Resident: Heather Valencia ATTENDING PHYSICIAN STATEMENT I saw and evaluated the patient. I reviewed the resident's note and discussed the case with the resident. I agree with the resident's findings and plan as documented. SUBJECTIVE: Patient is feeling better with no acute distress. No fever or chills, no shortness of breath. OBJECTIVE: Vital Signs Temperature 98.2 F 11/28/18 14:00 Pulse Rate 63 11/28/18 14:00 Respiratory Rate 18 11/28/18 14:00 Blood Pressure 139/70 11/28/18 14:00 O2 Sat by Pulse Oximetry (%) 98 11/28/18 09:00 GENERAL: The patient is awake, alert, and fully oriented, in no acute distress. HEAD: Normal with no signs of trauma. EYES: PERRLA, EOMI, sclera anicteric, conjunctiva clear. ENT: Ears normal, oropharynx clear without exudates, moist mucous membranes. NECK: Trachea midline, full range of motion, supple. LUNGS: Breath sounds equal, clear to auscultation bilaterally. HEART: Regular rate and rhythm, S1, S2 without murmur, rub or gallop. ABDOMEN: Soft, nontender, nondistended, normoactive bowel sounds. EXTREMITIES: 2+ pulses, warm, well-perfused, no edema. PSYCH: Normal mood, normal affect. SKIN: Warm, dry, normal turgor, no rashes or lesions noted CBCD WBC 4.3 K/mm3 (4.0-10.0) 11/28/18 06:30 RBC 2.85 M/mm3 (3.60-5.2) L 11/28/18 06:30 Hgb 8.1 GM/dL (10.7-15.3) L 11/28/18 06:30 Hct 25.3 % (32.4-45.2) L 11/28/18 06:30 MCV 88.7 fl (80-96) 11/28/18 06:30 MCHC 32.1 g/dl (32.0-36.0) 11/28/18 06:30 RDW 15.9 % (11.6-15.6) H 11/28/18 06:30 Plt Count 129 K/MM3 (134-434) L 11/28/18 06:30 MPV 9.8 fl (7.5-11.1) 11/28/18 06:30 CMP Sodium 140 mmol/L (136-145) 11/28/18 06:30 Potassium 4.1 mmol/L (3.5-5.1) 11/28/18 06:30 Chloride 110 mmol/L (98-107) H 11/28/18 06:30 Carbon Dioxide 24 mmol/L (21-32) 11/28/18 06:30 Anion Gap 6 MMOL/L (8-16) L 11/28/18 06:30 BUN 20 mg/dL (7-18) H 11/28/18 06:30 Creatinine 1.6 mg/dL (0.55-1.3) H 11/28/18 06:30 Creat Clearance w eGFR 31.09 (>60) 11/28/18 06:30 Random Glucose 181 mg/dL (74-106) H 11/28/18 06:30 Calcium 7.6 mg/dL (8.5-10.1) L 11/28/18 06:30 Total Bilirubin 0.5 mg/dL (0.2-1) 11/25/18 06:00 AST 36 U/L (15-37) 11/25/18 06:00 ALT 12 U/L (13-61) L 11/25/18 06:00 Alkaline Phosphatase 117 U/L (45-117) 11/25/18 06:00 Total Protein 5.8 g/dl (6.4-8.2) L 11/25/18 06:00 Albumin 2.1 g/dl (3.4-5.0) L 11/25/18 06:00 CARDIAC ENZYMES Troponin I < 0.02 ng/ml (0.00-0.05) 11/28/18 06:30 Current Medications Generic Name Dose Route Start Last Admin Trade Name Freq PRN Reason Stop Dose Admin Acetaminophen 650 mg 11/27/18 13:25 Tylenol - PO Q4H PRN FEVER Ascorbic Acid 500 mg 11/27/18 22:00 11/28/18 09:35 Vitamin C - PO 500 mg BID GLORIA Administration Aspirin 81 mg 11/28/18 10:00 11/28/18 09:35 Ecotrin - PO 81 mg DAILY GLORIA Administration Brimonidine Tartrate 1 drop 11/27/18 22:00 11/28/18 09:34 Alphagan 0.2% - OU 1 drop BID GLORIA Administration Calcium Carbonate/Cholecalciferol 1 tab 11/27/18 14:00 11/28/18 14:15 Os-Jay 500+D - PO 1 tab TID GLORIA Administration Carbidopa/Levodopa 0.5 each 11/27/18 14:00 11/28/18 14:18 Sinemet 25/100 - PO 0.5 each TID GLORIA Administration Docusate Sodium 100 mg 11/28/18 10:00 11/28/18 09:35 Colace - PO 100 mg DAILY GLORIA Administration Heparin Sodium (Porcine) 5,000 unit 11/27/18 14:00 11/28/18 14:15 Heparin - SQ 5,000 unit TID GLORIA Administration Piperacillin Sod/Tazobactam 50 mls @ 100 mls/hr 11/27/18 18:00 11/28/18 17:33 Sod 2.25 gm/ Dextrose IVPB 100 mls/hr Q8H-IV GL[facility]IA Administration Protocol Sodium Chloride 1,000 mls @ 50 mls/hr 11/28/18 14:41 11/28/18 17:03 Normal Saline - IV Not Given ASDIR GLORIA Insulin Aspart 1 vial 11/27/18 16:30 11/28/18 17:32 Novolog Vial Sliding Scale - SQ 2 unit TIDAC GL[facility]IA Administration Protocol Lactobacillus Acidophilus 1 tab 11/28/18 10:00 11/28/18 10:00 Bacid - PO 1 tab BID GL[facility]IA Administration Pantoprazole Sodium 40 mg 11/28/18 10:00 11/28/18 09:35 Protonix - PO 40 mg DAILY GL[facility]IA Administration Pregabalin 50 mg 11/27/18 14:00 11/28/18 14:15 Lyrica - PO 50 mg TID GLORIA Administration Sucralfate 1 gm 11/27/18 22:00 11/28/18 09:34 Carafate Oral Suspension - PO 1 gm BID GL[facility]IA Administration Timolol Maleate 1 drop 11/27/18 22:00 11/28/18 09:35 Timoptic 0.5% OU 1 drop BID [facility] Administration Vancomycin HCl 125 mg 11/27/18 18:00 11/28/18 17:32 Vancomycin Oral Solution PO 125 mg Q6HPO [facility] Administration Home Medications Medication Instructions Recorded Insulin NPL/Insulin Lispro 30 unit SQ AM 05/04/13 [Humalog Mix 75-25 Pen] Insulin Lispro Protamin/Lispro 27 unit SQ HS 12/22/16 [Humalog Mix 75-25 Vial] Multivitamins [Multivit ([facility] 1 mg PO DAILY 05/08/17 Formulary)] Omeprazole 40 mg PO BID 05/08/17 Pregabalin [Lyrica -] 50 mg PO TID 05/08/17 Pramipexole Dihydrochloride 0.5 mg PO BID 03/14/18 [Mirapex -] Calcium Carbonate/Vitamin D3 600 mg PO TID 03/15/18 [Calcium 600 + Vit D 400 Softgl] Carbidopa/Levodopa 0.5 each PO TID 09/13/18 [Carbidopa-Levodopa 25-100 Tab] Ascorbate Calcium [Vitamin C] 500 mg PO BID 11/17/18 Baclofen 10 mg PO TID 11/17/18 Brimonidine Tartrate/Timolol 5 ml OU BID 11/17/18 [Combigan 0.2%-0.5% Eye Drops] Docusate Sodium 100 mg PO DAILY 11/17/18 Furosemide [Lasix -] 40 mg PO DAILY 11/17/18 Aspirin Coated [Ecotrin -] 81 mg PO DAILY #30 tablet.ec 11/19/18 Hydrochlorothiazide [Hctz -] 12.5 mg PO DAILY #30 cap 11/19/18 Microbiology 11/23/18 12:47 Blood - Peripheral Venous Blood Culture - Final NO GROWTH AFTER 5 DAYS INCUBATION 11/23/18 12:50 Blood - Peripheral Venous Blood Culture - Final NO GROWTH AFTER 5 DAYS INCUBATION 11/22/18 19:01 Blood - Peripheral Venous Blood Culture - Final NO GROWTH AFTER 5 DAYS INCUBATION 11/22/18 19:01 Blood - Peripheral Venous Blood Culture - Final NO GROWTH AFTER 5 DAYS INCUBATION 11/22/18 19:01 Urine - Urostomy Bag Urine Culture - Preliminary Klebsiella Pneumoniae Salmonella Species Enterococcus Faecalis ASSESSMENT AND PLAN: Patient is a 77yo female with PMHx of PMHx of HTN, DM, Bladder cancer s/p ileal conduit, SBO, abd wall hernias, SAH,salmonella enteritis and bacteremia, with positive stress test , CKD ( Cr base line 1.5), DVTs and IVC filter who presented with fever, AMS and diarrhea . # s/p Sepsis: due to pyelnephritis. urine cx Klebsiella, salmonella and group D strep. on zosyn continue, Id on the case. - Ileoscopy was not possible, but ileogaphy showed dilated R ureter but faint visualization of L ureter. Need further recommendation form urology. - Salmonella in urine might raise suspicion for connection between bowel and urinary tract. initial CT with gastrograph. did not show any fistula. Ileography did not show any. will discuss further with ID and Uro for next step # Diarrhea: No diarrhea at this time. will d/w GI the need for vanco as there is no colitis on Ct and no colon dilation and no more diarrhea # Left sided CP: with positive stress test 11/19 with reversible lateral ischemia. Cath was declined by family then. continue asa. - Appreciate card recs. will check with cardio whether to add Imdur 30mg daily. # NATASHA on CKD: on IV hydration due to volume depletion . On hold lasix and HCTZ # T2DM: cont SSI ; at dc , she will need lower insulin doses due to hypoglycemia as out pt # HTN: hold lasix and HCTZ # Parkinson's : cont CArbidopa/Levo dopa DVT Px: heparin sq
[2018-11-28] MEDS ORDERED: PT OWN MED DRAWER 7, Y5N ONE ×2 (21:43→22:48)
[2018-11-29] MEDS: VANCOMYCIN 250 MG/5 ML ORAL SOLUTION PO SCH ×4 (00:14→18:08)
[2018-11-29] MEDS ORDERED: DEXTROSE 5%-WATER - 50 ML IVPB ONE ×3 (01:12→17:46)
[2018-11-29] MEDS ORDERED: PIPERACILLIN/TAZOBACTAM 2.25 GM VIAL IVPB ONE ×3 (01:12→17:46)
[2018-11-29] MEDS: PIPERACILLIN/TAZOB 2.25 GM 2.25 GM in DEXTROSE 5%-WATER - 50 ML IVPB SCH ×3 (01:37→18:06)
[2018-11-29 05:57] LABS: HEMOGLOBIN 8.5 GM/dL (10.7-15.3); MCHC 32.7 g/dl (32.0-36.0); MEAN CELL VOLUME 88.7 fl (80-96); MEAN PLT VOLUME 10.3 fl (7.5-11.1); PLATELET COUNT 144 K/MM3 (134-434); RBC 2.93 M/mm3 (3.60-5.2); RDW 15.9 % (11.6-15.6); WHITE BLOOD COUNT 4.7 K/mm3 (4.0-10.0)
[2018-11-29] MEDS: CALCIUM 500MG/VIT-D 200 UNITS COMBO TABLET (FP) PO SCH ×3 (06:19→21:41)
[2018-11-29] MEDS: PREGABALIN 50 MG CAPSULE PO SCH ×3 (06:19→21:41)
[2018-11-29] MEDS: HEPARIN NA (PORCINE) 5,000 UNITS/ML 1ML VIAL SQ SCH ×3 (06:19→21:41)
[2018-11-29] MEDS: CARBIDOPA/LEVODOPA 25/100 TABLET (FP) PO SCH ×3 (06:20→21:41)
[2018-11-29] MEDS: INSULIN SLIDING SCALE (NOVOLOG) 1 VIAL SQ SCH ×3 (06:49→17:05)
[2018-11-29] MEDS ORDERED: PT OWN MED DRAWER 7, Y5N ONE ×4 (10:07→21:31)
[2018-11-29] MEDS: PANTOPRAZOLE 40 MG TABLET (FP) PO SCH (10:19)
[2018-11-29] MEDS: LACTOBACILLUS ACIDOPHILUS 1 TABLET PO SCH ×2 (10:19→21:41)
[2018-11-29] MEDS: ASCORBIC ACID 500 MG TABLET (FP) PO SCH ×2 (10:19→21:42)
[2018-11-29] MEDS: ASPIRIN COATED 81 MG TABLET.EC PO SCH (10:19)
[2018-11-29] MEDS: DOCUSATE SODIUM 100 MG CAPSULE (FP) PO SCH (10:19)
[2018-11-29] MEDS: SUCRALFATE 1 GM/10 ML UNIT DOSE CUPS PO SCH ×2 (10:20→21:41)
[2018-11-29] MEDS: BRIMONIDINE TARTRATE 0.2% OPHTHALMIC 5 ML BOTTLE OU SCH ×2 (10:21→21:42)
[2018-11-29] MEDS: TIMOLOL 0.5% OPHTHALMIC SOL 5 ML BOTTLE OU SCH ×2 (10:21→21:42)
--- NOTE | 2018-11-29 11:33 | PN ---
Progress Note (short form) - Note Progress Note: s: no cp, palps, dyspnea, dizziness Current Medications Generic Name Dose Route Start Last Admin Trade Name Freq PRN Reason Stop Dose Admin Acetaminophen 650 mg 11/27/18 13:25 Tylenol - PO Q4H PRN FEVER Ascorbic Acid 500 mg 11/27/18 22:00 11/29/18 10:19 Vitamin C - PO 500 mg BID GLORIA Administration Aspirin 81 mg 11/28/18 10:00 11/29/18 10:19 Ecotrin - PO 81 mg DAILY [facility]IA Administration Atorvastatin Calcium 40 mg 11/29/18 22:00 Lipitor - PO HS [facility]IA Brimonidine Tartrate 1 drop 11/27/18 22:00 11/29/18 10:21 Alphagan 0.2% - OU 1 drop BID GLORIA Administration Calcium Carbonate/Cholecalciferol 1 tab 11/27/18 14:00 11/29/18 06:19 Os-Jay 500+D - PO 1 tab TID GL[facility]IA Administration Carbidopa/Levodopa 0.5 each 11/27/18 14:00 11/29/18 06:20 Sinemet 25/100 - PO 0.5 each TID GLORIA Administration Docusate Sodium 100 mg 11/28/18 10:00 11/29/18 10:19 Colace - PO 100 mg DAILY GLORIA Administration Heparin Sodium (Porcine) 5,000 unit 11/27/18 14:00 11/29/18 06:19 Heparin - SQ Not Given TID GLORIA Piperacillin Sod/Tazobactam 50 mls @ 100 mls/hr 11/27/18 18:00 11/29/18 10:19 Sod 2.25 gm/ Dextrose IVPB 100 mls/hr Q8H-IV [facility] Administration Protocol Sodium Chloride 1,000 mls @ 50 mls/hr 11/28/18 14:41 11/28/18 17:03 Normal Saline - IV Not Given ASDIR GLORIA Insulin Aspart 1 vial 11/27/18 16:30 11/29/18 06:49 Novolog Vial Sliding Scale - SQ 2 unit TIDAC [facility] Administration Protocol Lactobacillus Acidophilus 1 tab 11/28/18 10:00 11/29/18 10:19 Bacid - PO 1 tab BID GL[facility]IA Administration Pantoprazole Sodium 40 mg 11/28/18 10:00 11/29/18 10:19 Protonix - PO 40 mg DAILY GL[facility]IA Administration Pregabalin 50 mg 11/27/18 14:00 11/29/18 06:19 Lyrica - PO 50 mg TID GLORIA Administration Sucralfate 1 gm 11/27/18 22:00 11/29/18 10:20 Carafate Oral Suspension - PO 1 gm BID GL[facility]IA Administration Timolol Maleate 1 drop 11/27/18 22:00 11/29/18 10:21 Timoptic 0.5% OU 1 drop BID GLORIA Administration Vancomycin HCl 125 mg 11/27/18 18:00 11/29/18 06:19 Vancomycin Oral Solution PO 125 mg Q6HPO [facility] Administration Vital Signs: Vital Signs Period Temp Pulse Resp BP Sys/Adorno Pulse Ox Last 24 Hr 98.2 F-98.5 F 56-66 18-18 104-139/58-70 100 Constitutional: Yes: No Distress, Obese Eyes: No: Sclera Icterus Respiratory: Yes: CTA Bilaterally. No: Accessory Muscle Use, Rales, Wheezes Gastrointestinal: Yes: Normal Bowel Sounds. No: Distention, Hepatomegaly, Palpable Mass, Tenderness Cardiovascular: Yes: Regular Rate and Rhythm (soft heart sounds) JVD: No Heart Sounds: Yes: S1, S2. No: Gallop Murmur: No: Systolic Murmur, Diastolic Murmur Extremities: No: Cool, Cyanosis Edema: No Peripheral Pulses: 2+ Left Carotid, 2+ Right Carotid, 2+ Left Doralis Pedis, 2+ Right Dorsalis Pedis Integumentary: No: Jaundice Neurological: Yes: Alert, Oriented (x3) Psychiatric: No: Agitated CBC, BMP 11/29/18 05:30 11/28/18 06:30 ekg: SR, RBBB,no sig change vs prior echo 08/2018: nl lv/rv, mild mr cxr: no sig chf mibi 11/2018 small to mod zone of inferolateral and lateral reversible defect c/ w mild intensity ischemia, EF 59% echo 11/2018 nl LV function, EF 55-60%, grade I diastolic dysufnction, PASP at least 41 mmHg tele: sinus a/p: uti/pyelo: -plan per ID, urology presumed cad, cp: -recent admit for cp. echo then with nl EF. Recent mibi with mild ischemia and pt/family opted for med management, no cath. -no signs acs, trops unremarkable -CP today worse with position changes, palpation - likely MSK -cont asa, monitor for new sxs -dc tele HTN: -cont home meds DM: -per primary MD CKD: -currently stable renal fxn
[2018-11-29] MEDS: SODIUM CHLORIDE 1,000 ML IV SCH ×3 (13:24→18:09)
--- NOTE | 2018-11-29 17:02 | PN ---
Teaching Attending Note Name of Resident: Humaira Valero ATTENDING PHYSICIAN STATEMENT I saw and evaluated the patient. I reviewed the resident's note and discussed the case with the resident. I agree with the resident's findings and plan as documented. SUBJECTIVE: Patient is feeling better with no acute distress. OBJECTIVE: Vital Signs Temperature 99.2 F 11/29/18 10:00 Pulse Rate 66 11/29/18 10:00 Respiratory Rate 18 11/29/18 10:00 Blood Pressure 148/75 11/29/18 10:00 O2 Sat by Pulse Oximetry (%) 98 11/29/18 09:00 GENERAL: The patient is awake, alert, and fully oriented, in no acute distress. HEAD: Normal with no signs of trauma. EYES: PERRLA, EOMI, sclera anicteric, conjunctiva clear. ENT: Ears normal, oropharynx clear without exudates, moist mucous membranes. NECK: Trachea midline, full range of motion, supple. LUNGS: Breath sounds equal, clear to auscultation bilaterally. HEART: Regular rate and rhythm, S1, S2 without murmur, rub or gallop. ABDOMEN: Soft, nontender, nondistended, normoactive bowel sounds. EXTREMITIES: 2+ pulses, warm, well-perfused, no edema. PSYCH: Normal mood, normal affect. SKIN: Warm, dry, normal turgor, no rashes or lesions noted CBCD WBC 4.7 K/mm3 (4.0-10.0) 11/29/18 05:30 RBC 2.93 M/mm3 (3.60-5.2) L 11/29/18 05:30 Hgb 8.5 GM/dL (10.7-15.3) L 11/29/18 05:30 Hct 26.0 % (32.4-45.2) L 11/29/18 05:30 MCV 88.7 fl (80-96) 11/29/18 05:30 MCHC 32.7 g/dl (32.0-36.0) 11/29/18 05:30 RDW 15.9 % (11.6-15.6) H 11/29/18 05:30 Plt Count 144 K/MM3 (134-434) 11/29/18 05:30 MPV 10.3 fl (7.5-11.1) 11/29/18 05:30 CMP Sodium 140 mmol/L (136-145) 11/28/18 06:30 Potassium 4.1 mmol/L (3.5-5.1) 11/28/18 06:30 Chloride 110 mmol/L (98-107) H 11/28/18 06:30 Carbon Dioxide 24 mmol/L (21-32) 11/28/18 06:30 Anion Gap 6 MMOL/L (8-16) L 11/28/18 06:30 BUN 20 mg/dL (7-18) H 11/28/18 06:30 Creatinine 1.6 mg/dL (0.55-1.3) H 11/28/18 06:30 Creat Clearance w eGFR 31.09 (>60) 11/28/18 06:30 Random Glucose 181 mg/dL (74-106) H 11/28/18 06:30 Calcium 7.6 mg/dL (8.5-10.1) L 11/28/18 06:30 Total Bilirubin 0.5 mg/dL (0.2-1) 11/25/18 06:00 AST 36 U/L (15-37) 11/25/18 06:00 ALT 12 U/L (13-61) L 11/25/18 06:00 Alkaline Phosphatase 117 U/L (45-117) 11/25/18 06:00 Total Protein 5.8 g/dl (6.4-8.2) L 11/25/18 06:00 Albumin 2.1 g/dl (3.4-5.0) L 11/25/18 06:00 CARDIAC ENZYMES Troponin I < 0.02 ng/ml (0.00-0.05) 11/28/18 06:30 Current Medications Generic Name Dose Route Start Last Admin Trade Name Freq PRN Reason Stop Dose Admin Acetaminophen 650 mg 11/27/18 13:25 Tylenol - PO Q4H PRN FEVER Ascorbic Acid 500 mg 11/27/18 22:00 11/29/18 10:19 Vitamin C - PO 500 mg BID [facility] Administration Aspirin 81 mg 11/28/18 10:00 11/29/18 10:19 Ecotrin - PO 81 mg DAILY [facility] Administration Atorvastatin Calcium 40 mg 11/29/18 22:00 Lipitor - PO HS [facility] Brimonidine Tartrate 1 drop 11/27/18 22:00 11/29/18 10:21 Alphagan 0.2% - OU 1 drop BID GLORIA Administration Calcium Carbonate/Cholecalciferol 1 tab 11/27/18 14:00 11/29/18 13:22 Os-Jay 500+D - PO 1 tab TID GL[facility]IA Administration Carbidopa/Levodopa 0.5 each 11/27/18 14:00 11/29/18 13:23 Sinemet 25/100 - PO 0.5 each TID GLORIA Administration Docusate Sodium 100 mg 11/28/18 10:00 11/29/18 10:19 Colace - PO 100 mg DAILY GL[facility]IA Administration Heparin Sodium (Porcine) 5,000 unit 11/27/18 14:00 11/29/18 13:22 Heparin - SQ Not Given TID GLORIA Piperacillin Sod/Tazobactam 50 mls @ 100 mls/hr 11/27/18 18:00 11/29/18 10:19 Sod 2.25 gm/ Dextrose IVPB 100 mls/hr Q8H-IV [facility] Administration Protocol Sodium Chloride 1,000 mls @ 50 mls/hr 11/28/18 14:41 11/29/18 13:24 Normal Saline - IV 50 mls/hr ASDIR [facility] Administration Insulin Aspart 1 vial 11/27/18 16:30 11/29/18 11:43 Novolog Vial Sliding Scale - SQ 2 unit TIDAC [facility] Administration Protocol Lactobacillus Acidophilus 1 tab 11/28/18 10:00 11/29/18 10:19 Bacid - PO 1 tab BID GL[facility] Administration Pantoprazole Sodium 40 mg 11/28/18 10:00 11/29/18 10:19 Protonix - PO 40 mg DAILY [facility] Administration Pregabalin 50 mg 11/27/18 14:00 11/29/18 13:22 Lyrica - PO 50 mg TID GL[facility]IA Administration Sucralfate 1 gm 11/27/18 22:00 11/29/18 10:20 Carafate Oral Suspension - PO 1 gm BID [facility]IA Administration Timolol Maleate 1 drop 11/27/18 22:00 11/29/18 10:21 Timoptic 0.5% OU 1 drop BID [facility]IA Administration Vancomycin HCl 125 mg 11/27/18 18:00 11/29/18 11:44 Vancomycin Oral Solution PO 125 mg Q6HPO [facility] Administration Home Medications Medication Instructions Recorded Insulin NPL/Insulin Lispro 30 unit SQ AM 05/04/13 [Humalog Mix 75-25 Pen] Insulin Lispro Protamin/Lispro 27 unit SQ HS 12/22/16 [Humalog Mix 75-25 Vial] Multivitamins [Multivit ([facility] 1 mg PO DAILY 05/08/17 Formulary)] Omeprazole 40 mg PO BID 05/08/17 Pregabalin [Lyrica -] 50 mg PO TID 05/08/17 Pramipexole Dihydrochloride 0.5 mg PO BID 03/14/18 [Mirapex -] Calcium Carbonate/Vitamin D3 600 mg PO TID 03/15/18 [Calcium 600 + Vit D 400 Softgl] Carbidopa/Levodopa 0.5 each PO TID 09/13/18 [Carbidopa-Levodopa 25-100 Tab] Ascorbate Calcium [Vitamin C] 500 mg PO BID 11/17/18 Baclofen 10 mg PO TID 11/17/18 Brimonidine Tartrate/Timolol 5 ml OU BID 11/17/18 [Combigan 0.2%-0.5% Eye Drops] Docusate Sodium 100 mg PO DAILY 11/17/18 Furosemide [Lasix -] 40 mg PO DAILY 11/17/18 Aspirin Coated [Ecotrin -] 81 mg PO DAILY #30 tablet.ec 11/19/18 Hydrochlorothiazide [Hctz -] 12.5 mg PO DAILY #30 cap 11/19/18 ASSESSMENT AND PLAN: Patient is a 77yo female with PMHx of PMHx of HTN, DM, Bladder cancer s/p ileal conduit, SBO, abd wall hernias, SAH,salmonella enteritis and bacteremia, with positive stress test , CKD ( Cr base line 1.5), DVTs and IVC filter who presented with fever, AMS and diarrhea . # s/p Sepsis: due to pyelnephritis. urine cx Klebsiella, salmonella and group D strep. on zosyn continue as per ID. Ileoscopy was not possible, but ileogaphy showed dilated R ureter but faint visualization of L ureter. Salmonella in urine might raise suspicion for connection between bowel and urinary tract. initial CT with gastrograph. did not show any fistula. will discuss with urology for further plan and ID for discharge instructions. # Diarrhea: No diarrhea at this time. as per GI to continue Vanco as per GI. # Left sided CP: with positive stress test 11/19 with reversible lateral ischemia. Cath was declined by family then. continue asa. - Appreciate card recs. will check with cardio whether to add Imdur 30mg daily. # NATASHA on CKD: on IV hydration due to volume depletion . On hold lasix and HCTZ # T2DM: cont SSI ; at dc , she will need lower insulin doses her insulin at home since was having hypoglycemia as out pt # HTN: hold lasix and HCTZ # Parkinson's : cont CArbidopa/Levo dopa DVT Px: heparin sq
--- NOTE | 2018-11-29 17:10 | PN ---
Progress Note, Physician History of Present Illness: patient having headaches today got a ct scan otherwise no new issues - Current Medication List Current Medications: Active Medications Acetaminophen (Tylenol -) 650 mg PO Q4H PRN PRN Reason: FEVER Ascorbic Acid (Vitamin C -) 500 mg PO BID [facility] Last Admin: 11/29/18 10:19 Dose: 500 mg Aspirin (Ecotrin -) 81 mg PO DAILY [facility] Last Admin: 11/29/18 10:19 Dose: 81 mg Atorvastatin Calcium (Lipitor -) 40 mg PO HS [facility] Brimonidine Tartrate (Alphagan 0.2% -) 1 drop OU BID [facility] Last Admin: 11/29/18 10:21 Dose: 1 drop Calcium Carbonate/Cholecalciferol (Os-Jay 500+D -) 1 tab PO TID [facility] Last Admin: 11/29/18 13:22 Dose: 1 tab Carbidopa/Levodopa (Sinemet 25/100 -) 0.5 each PO TID [facility] Last Admin: 11/29/18 13:23 Dose: 0.5 each Docusate Sodium (Colace -) 100 mg PO DAILY [facility] Last Admin: 11/29/18 10:19 Dose: 100 mg Heparin Sodium (Porcine) (Heparin -) 5,000 unit SQ TID [facility] Last Admin: 11/29/18 13:22 Dose: Not Given Piperacillin Sod/Tazobactam (Sod 2.25 gm/ Dextrose) 50 mls @ 100 mls/hr IVPB Q8H-IV [facility]; Protocol Last Admin: 11/29/18 10:19 Dose: 100 mls/hr Sodium Chloride (Normal Saline -) 1,000 mls @ 50 mls/hr IV ASDIR [facility] Last Admin: 11/29/18 13:24 Dose: 50 mls/hr Insulin Aspart (Novolog Vial Sliding Scale -) 1 vial SQ TIDAC [facility]; Protocol Last Admin: 11/29/18 11:43 Dose: 2 unit Lactobacillus Acidophilus (Bacid -) 1 tab PO BID [facility] Last Admin: 11/29/18 10:19 Dose: 1 tab Pantoprazole Sodium (Protonix -) 40 mg PO DAILY [facility] Last Admin: 11/29/18 10:19 Dose: 40 mg Pregabalin (Lyrica -) 50 mg PO TID [facility] Last Admin: 11/29/18 13:22 Dose: 50 mg Sucralfate (Carafate Oral Suspension -) 1 gm PO BID [facility] Last Admin: 11/29/18 10:20 Dose: 1 gm Timolol Maleate (Timoptic 0.5%) 1 drop OU BID [facility] Last Admin: 11/29/18 10:21 Dose: 1 drop Vancomycin HCl (Vancomycin Oral Solution) 125 mg PO Q6HPO [facility] Last Admin: 11/29/18 11:44 Dose: 125 mg - Objective Vital Signs: Vital Signs Temperature 99.2 F 11/29/18 10:00 Pulse Rate 66 11/29/18 10:00 Respiratory Rate 18 11/29/18 10:00 Blood Pressure 148/75 11/29/18 10:00 O2 Sat by Pulse Oximetry (%) 98 11/29/18 09:00 Constitutional: Yes: Calm, Mild Distress, Obese Cardiovascular: Yes: Regular Rate and Rhythm Respiratory: Yes: Regular, CTA Bilaterally Gastrointestinal: Yes: Normal Bowel Sounds, Soft Musculoskeletal: Yes: WNL Extremities: Yes: WNL Neurological: Yes: Alert, Oriented Psychiatric: Yes: Alert, Oriented Labs: CBC, BMP 11/29/18 05:30 11/28/18 06:30 INR, PTT INR 1.26 (0.83-1.09) H 11/22/18 21:10 Assessment/Plan Problem List - Problems (1) Abdominal pain Code(s): R10.9 - UNSPECIFIED ABDOMINAL PAIN Qualifiers: Abdominal location: generalized Qualified Code(s): R10.84 - Generalized abdominal pain (2) Diarrhea Code(s): R19.7 - DIARRHEA, UNSPECIFIED (3) Fever and chills Code(s): R50.9 - FEVER, UNSPECIFIED 4 uti 5 pyelo nephritis plan continue abx do stool test for ova and parasite and stool cx to see if she has salmonella in stools once we have that will make a final decision rest as per the team
--- NOTE | 2018-11-29 18:03 | PN ---
Physical Exam: SUBJECTIVE: Patient seen and examined at bedside this morning. No acute events overnight. Patient reporting headache and "slurred speech" today. Refuses heparin as she reports its causing her speech to be slurred. Denies chest pain, SOB, palpitations, abdominal pain. OBJECTIVE: Vital Signs Temperature 99.2 F 11/29/18 10:00 Pulse Rate 66 11/29/18 10:00 Respiratory Rate 18 11/29/18 10:00 Blood Pressure 148/75 11/29/18 10:00 O2 Sat by Pulse Oximetry (%) 98 11/29/18 09:00 GENERAL: The patient is awake, alert, and fully oriented, in no acute distress. HEAD: Normal with no signs of trauma. EYES: PERRLA, EOMI, sclera anicteric, conjunctiva clear. ENT: Ears normal, nares patent, oropharynx clear without exudates, moist mucous membranes. NECK: Trachea midline, full range of motion, supple. LUNGS: Breath sounds equal, clear to auscultation bilaterally. HEART: Regular rate and rhythm, S1, S2 without murmur, rub or gallop. ABDOMEN: Soft, nontender, nondistended, normoactive bowel sounds, urostomy bag in place with clear urine. EXTREMITIES: 2+ pulses, warm, well-perfused, no edema. PSYCH: Normal mood, normal affect. SKIN: Warm, dry, normal turgor, no rashes or lesions noted Laboratory Results - last 24 hr 11/29/18 11/29/18 11/29/18 05:30 05:57 11:30 WBC 4.7 RBC 2.93 L Hgb 8.5 L Hct 26.0 L MCV 88.7 MCH 29.0 MCHC 32.7 RDW 15.9 H Plt Count 144 MPV 10.3 POC Glucometer 182 166 11/29/18 17:02 WBC RBC Hgb Hct MCV MCH MCHC RDW Plt Count MPV POC Glucometer 136 Active Medications Generic Name Dose Route Start Last Admin Trade Name Freq PRN Reason Stop Dose Admin Acetaminophen 650 mg 11/27/18 13:25 Tylenol - PO Q4H PRN FEVER Ascorbic Acid 500 mg 11/27/18 22:00 11/29/18 10:19 Vitamin C - PO 500 mg BID GLORIA Administration Aspirin 81 mg 11/28/18 10:00 11/29/18 10:19 Ecotrin - PO 81 mg DAILY GLORIA Administration Atorvastatin Calcium 40 mg 11/29/18 22:00 Lipitor - PO HS GLORIA Brimonidine Tartrate 1 drop 11/27/18 22:00 11/29/18 10:21 Alphagan 0.2% - OU 1 drop BID GLORIA Administration Calcium Carbonate/Cholecalciferol 1 tab 11/27/18 14:00 11/29/18 13:22 Os-Jay 500+D - PO 1 tab TID GLORIA Administration Carbidopa/Levodopa 0.5 each 11/27/18 14:00 11/29/18 13:23 Sinemet 25/100 - PO 0.5 each TID GLORIA Administration Docusate Sodium 100 mg 11/28/18 10:00 11/29/18 10:19 Colace - PO 100 mg DAILY GLORIA Administration Heparin Sodium (Porcine) 5,000 unit 11/27/18 14:00 11/29/18 13:22 Heparin - SQ Not Given TID GLORIA Piperacillin Sod/Tazobactam 50 mls @ 100 mls/hr 11/27/18 18:00 11/29/18 10:19 Sod 2.25 gm/ Dextrose IVPB 100 mls/hr Q8H-IV GLORIA Administration Protocol Sodium Chloride 1,000 mls @ 50 mls/hr 11/28/18 14:41 11/29/18 14:40 Normal Saline - IV Not Given ASDIR GLORIA Insulin Aspart 1 vial 11/27/18 16:30 11/29/18 17:05 Novolog Vial Sliding Scale - SQ Not Given TIDAC GLORIA Protocol Lactobacillus Acidophilus 1 tab 11/28/18 10:00 11/29/18 10:19 Bacid - PO 1 tab BID GLORIA Administration Pantoprazole Sodium 40 mg 11/28/18 10:00 11/29/18 10:19 Protonix - PO 40 mg DAILY GLORIA Administration Pregabalin 50 mg 11/27/18 14:00 11/29/18 13:22 Lyrica - PO 50 mg TID GLORIA Administration Sucralfate 1 gm 11/27/18 22:00 11/29/18 10:20 Carafate Oral Suspension - PO 1 gm BID GLORIA Administration Timolol Maleate 1 drop 11/27/18 22:00 11/29/18 10:21 Timoptic 0.5% OU 1 drop BID GLORIA Administration Vancomycin HCl 125 mg 11/27/18 18:00 11/29/18 11:44 Vancomycin Oral Solution PO 125 mg Q6HPO GLORIA Administration ASSESSMENT/PLAN: Patient is a 78 year old female with past medical history of IDDM, HTN, SAH, Bladder cancer s/p ileal conduit, DVT and IVC filters, GERD, CKD and Parkinson' s disease, presented with fever, lethargy and diarrhea. #Sepsis 2/2 Complicated pyelonephritis: vs GI source -patient remains afebrile x2days -Continue Zosyn 2.25 gm q8h day 6 -Urine culture: Klebsiella, Salmonella, Enterococcus -Blood culture: negative of any growth x5days -ID (Dr. Fulton) consulted. Recommendations appreciated. -Continue Zosyn -For stool culture to check for salmonella in stools and ova and parasite exam -Urology (Dr. Gomez) consulted. Recommendations appreciated. -s/p Ileogram and ileoscopy done: Dilated right ureter with good reflux, faintly seen left ureter, does not appear to be dilated. -follow up as outpatient #Epigastric pain: likely GERD -Ranitidine switched to Protonix as pt requests for PPI -Will add Carafate #left side chest pain -EKG and trop unremarkable, likely MSK -Cardiology (Dr. Gaming) consulted. REcommendations appreciated. -Continue ASA 81mg #NATASHA on CKD: stable -likely prerenal from diarrhea and sepsis, and diuretic use -Continue IV fluids -hold diuretics #Diarrhea:resolved #IDDM -Insulin sliding scale -BGM TIDAC #HTN -Hold Lasix and HCTZ #Parkinson's -Continue home Carbidopa/Levodopa 25/100 0.5each TID #FEN -IV Ns @50cc/hr -Electrolytes wnl, routine bmp monitoring -Diabetic diet #Prophylaxis -Heparin 5000units sq tid #Disposition -full code -transfer to med surg Visit type - Emergency Visit Emergency Visit: Yes ED Registration Date: 11/22/18 Care time: The patient presented to the Emergency Department on the above date and was hospitalized for further evaluation of their emergent condition. - New Patient This patient is new to me today: No - Critical Care Critical Care patient: No
[2018-11-29] MEDS ORDERED: ATORVASTATIN CA 40 MG TABLET (FP) PO SCH (22:00)
[2018-11-29] MEDS ORDERED: ACETAMINOPHEN 325 MG TABLET (FP) PO PRN (23:59)
[2018-11-29] MEDS ORDERED: morphine CARPU-JECT 2 MG/1 ML DISP.SYRIN IVPUSH ONE (23:59)
[2018-11-29] MEDS ORDERED: SODIUM CHLORIDE 1,000 ML IV SCH (23:59)
[2018-11-30] MEDS: VANCOMYCIN 250 MG/5 ML ORAL SOLUTION PO SCH ×3 (01:15→12:32)
[2018-11-30] MEDS ORDERED: PIPERACILLIN/TAZOBACTAM 2.25 GM VIAL IVPB ONE ×2 (02:35→11:30)
[2018-11-30] MEDS ORDERED: DEXTROSE 5%-WATER - 50 ML IVPB ONE ×2 (02:35→11:30)
[2018-11-30] MEDS: PIPERACILLIN/TAZOB 2.25 GM 2.25 GM in DEXTROSE 5%-WATER - 50 ML IVPB SCH ×2 (02:44→11:33)
[2018-11-30] MEDS: CARBIDOPA/LEVODOPA 25/100 TABLET (FP) PO SCH ×3 (06:18→21:09)
[2018-11-30] MEDS: PREGABALIN 50 MG CAPSULE PO SCH ×3 (06:18→21:09)
[2018-11-30] MEDS: HEPARIN NA (PORCINE) 5,000 UNITS/ML 1ML VIAL SQ SCH ×3 (06:18→21:10)
[2018-11-30] MEDS: CALCIUM 500MG/VIT-D 200 UNITS COMBO TABLET (FP) PO SCH ×3 (06:19→21:09)
[2018-11-30] MEDS: INSULIN SLIDING SCALE (NOVOLOG) 1 VIAL SQ SCH ×3 (06:23→16:49)
[2018-11-30] MEDS ORDERED: PT OWN MED DRAWER 7, Y5N ONE ×2 (07:07→11:29)
[2018-11-30 07:21] LABS: HEMATOCRIT 25.4 % (32.4-45.2); HEMOGLOBIN 8.2 GM/dL (10.7-15.3); MCH 28.7 pg (25.7-33.7); MCHC 32.4 g/dl (32.0-36.0); MEAN CELL VOLUME 88.7 fl (80-96); PLATELET COUNT 171 K/MM3 (134-434); RBC 2.87 M/mm3 (3.60-5.2); RDW 15.9 % (11.6-15.6); WHITE BLOOD COUNT 4.7 K/mm3 (4.0-10.0)
[2018-11-30 07:44] LABS: ANION GAP 2 MMOL/L (8-16); BLOOD UREA NITROGEN 11 mg/dL (7-18); CALCIUM 7.9 mg/dL (8.5-10.1); CHLORIDE 113 mmol/L (98-107); CHOLESTEROL 91 mg/dL (50-200); CO2 26 mmol/L (21-32); CREATININE 1.5 mg/dL (0.55-1.3); GLUCOSE,RANDOM 190 mg/dL (74-106); HDL CHOLESTEROL 28 mg/dL (40-60); MAGNESIUM 1.7 mg/dL (1.8-2.4); PHOSPHOROUS 2.9 mg/dL (2.5-4.9); POTASSIUM 4.3 mmol/L (3.5-5.1); SODIUM 141 mmol/L (136-145); TRIGLYCERIDES 144 mg/dL (0-150)
[2018-11-30] MEDS ORDERED: MAGNESIUM OXIDE 400 MG TABLET (FP) PO ONE (09:45)
[2018-11-30] MEDS: ASCORBIC ACID 500 MG TABLET (FP) PO SCH ×2 (11:32→21:09)
[2018-11-30] MEDS: ASPIRIN COATED 81 MG TABLET.EC PO SCH (11:32)
[2018-11-30] MEDS: SUCRALFATE 1 GM/10 ML UNIT DOSE CUPS PO SCH ×2 (11:32→21:10)
[2018-11-30] MEDS: LACTOBACILLUS ACIDOPHILUS 1 TABLET PO SCH ×2 (11:32→21:09)
[2018-11-30] MEDS: DOCUSATE SODIUM 100 MG CAPSULE (FP) PO SCH (11:32)
[2018-11-30] MEDS: PANTOPRAZOLE 40 MG TABLET (FP) PO SCH (11:32)
[2018-11-30] MEDS: BRIMONIDINE TARTRATE 0.2% OPHTHALMIC 5 ML BOTTLE OU SCH ×2 (11:34→21:10)
[2018-11-30] MEDS: TIMOLOL 0.5% OPHTHALMIC SOL 5 ML BOTTLE OU SCH ×2 (11:34→21:10)
--- NOTE | 2018-11-30 13:42 | PN ---
Progress Note, Physician History of Present Illness: patient stable no new issues - Current Medication List Current Medications: Active Medications Acetaminophen (Tylenol -) 650 mg PO Q4H PRN PRN Reason: FEVER Last Admin: 11/30/18 10:01 Dose: 650 mg Ascorbic Acid (Vitamin C -) 500 mg PO BID [facility] Last Admin: 11/30/18 11:32 Dose: 500 mg Aspirin (Ecotrin -) 81 mg PO DAILY [facility] Last Admin: 11/30/18 11:32 Dose: 81 mg Atorvastatin Calcium (Lipitor -) 40 mg PO HS [facility] Brimonidine Tartrate (Alphagan 0.2% -) 1 drop OU BID [facility] Last Admin: 11/30/18 11:34 Dose: 1 drop Calcium Carbonate/Cholecalciferol (Os-Jay 500+D -) 1 tab PO TID [facility] Last Admin: 11/30/18 06:19 Dose: 1 tab Carbidopa/Levodopa (Sinemet 25/100 -) 0.5 each PO TID [facility] Last Admin: 11/30/18 06:18 Dose: 0.5 each Docusate Sodium (Colace -) 100 mg PO DAILY [facility] Last Admin: 11/30/18 11:32 Dose: 100 mg Heparin Sodium (Porcine) (Heparin -) 5,000 unit SQ TID [facility] Last Admin: 11/30/18 06:18 Dose: 5,000 unit Sodium Chloride (Normal Saline -) 1,000 mls @ 50 mls/hr IV ASDIR [facility] Last Admin: 11/30/18 06:18 Dose: Not Given Piperacillin Sod/Tazobactam (Sod 2.25 gm/ Dextrose) 50 mls @ 100 mls/hr IVPB Q8H-IV [facility]; Protocol Last Admin: 11/30/18 11:33 Dose: 100 mls/hr Insulin Aspart (Novolog Vial Sliding Scale -) 1 vial SQ TIDAC [facility]; Protocol Last Admin: 11/30/18 12:30 Dose: Not Given Lactobacillus Acidophilus (Bacid -) 1 tab PO BID [facility] Last Admin: 11/30/18 11:32 Dose: 1 tab Pantoprazole Sodium (Protonix -) 40 mg PO DAILY [facility] Last Admin: 11/30/18 11:32 Dose: 40 mg Pregabalin (Lyrica -) 50 mg PO TID [facility] Last Admin: 11/30/18 06:18 Dose: 50 mg Sucralfate (Carafate Oral Suspension -) 1 gm PO BID [facility] Last Admin: 11/30/18 11:32 Dose: 1 gm Timolol Maleate (Timoptic 0.5%) 1 drop OU BID [facility] Last Admin: 11/30/18 11:34 Dose: 1 drop Vancomycin HCl (Vancomycin Oral Solution) 125 mg PO Q6HPO [facility] Last Admin: 11/30/18 12:32 Dose: 125 mg - Objective Vital Signs: Vital Signs Temperature 97.8 F 11/30/18 10:00 Pulse Rate 63 11/30/18 10:00 Respiratory Rate 18 11/30/18 10:00 Blood Pressure 140/67 11/30/18 10:00 O2 Sat by Pulse Oximetry (%) 100 11/30/18 09:00 Constitutional: Yes: No Distress, Calm, Obese Cardiovascular: Yes: Regular Rate and Rhythm Respiratory: Yes: Regular, CTA Bilaterally Gastrointestinal: Yes: Normal Bowel Sounds, Soft Musculoskeletal: Yes: WNL Extremities: Yes: WNL Neurological: Yes: Alert, Oriented Psychiatric: Yes: Alert, Oriented Labs: CBC, BMP 11/30/18 06:10 11/30/18 06:10 INR, PTT INR 1.26 (0.83-1.09) H 11/22/18 21:10 Assessment/Plan Problem List - Problems (1) Abdominal pain Code(s): R10.9 - UNSPECIFIED ABDOMINAL PAIN Qualifiers: Abdominal location: generalized Qualified Code(s): R10.84 - Generalized abdominal pain (2) Diarrhea Code(s): R19.7 - DIARRHEA, UNSPECIFIED (3) Fever and chills Code(s): R50.9 - FEVER, UNSPECIFIED 4 uti 5 pyelo nephritis patient doing well plan patient can be send home on levaquin 500 mg daily please give it for 2 weeks also follow her stool cx rest as per the team
--- NOTE | 2018-11-30 14:39 | PN ---
Progress Note (short form) - Note Progress Note: s: no cp, palps, dyspnea, dizziness Current Medications Acetaminophen (Tylenol -) 650 mg PO Q4H PRN PRN Reason: FEVER Last Admin: 11/30/18 10:01 Dose: 650 mg Ascorbic Acid (Vitamin C -) 500 mg PO BID [facility] Last Admin: 11/30/18 11:32 Dose: 500 mg Aspirin (Ecotrin -) 81 mg PO DAILY [facility] Last Admin: 11/30/18 11:32 Dose: 81 mg Atorvastatin Calcium (Lipitor -) 40 mg PO HS [facility] Brimonidine Tartrate (Alphagan 0.2% -) 1 drop OU BID [facility] Last Admin: 11/30/18 11:34 Dose: 1 drop Calcium Carbonate/Cholecalciferol (Os-Jay 500+D -) 1 tab PO TID [facility] Last Admin: 11/30/18 14:15 Dose: 1 tab Carbidopa/Levodopa (Sinemet 25/100 -) 0.5 each PO TID [facility] Last Admin: 11/30/18 14:15 Dose: 0.5 each Docusate Sodium (Colace -) 100 mg PO DAILY [facility] Last Admin: 11/30/18 11:32 Dose: 100 mg Heparin Sodium (Porcine) (Heparin -) 5,000 unit SQ TID [facility] Last Admin: 11/30/18 14:15 Dose: 5,000 unit Sodium Chloride (Normal Saline -) 1,000 mls @ 50 mls/hr IV ASDIR [facility] Last Admin: 11/30/18 06:18 Dose: Not Given Piperacillin Sod/Tazobactam (Sod 2.25 gm/ Dextrose) 50 mls @ 100 mls/hr IVPB Q8H-IV [facility]; Protocol Last Admin: 11/30/18 11:33 Dose: 100 mls/hr Insulin Aspart (Novolog Vial Sliding Scale -) 1 vial SQ TIDAC [facility]; Protocol Last Admin: 11/30/18 12:30 Dose: Not Given Lactobacillus Acidophilus (Bacid -) 1 tab PO BID [facility] Last Admin: 11/30/18 11:32 Dose: 1 tab Pantoprazole Sodium (Protonix -) 40 mg PO DAILY [facility] Last Admin: 11/30/18 11:32 Dose: 40 mg Pregabalin (Lyrica -) 50 mg PO TID [facility] Last Admin: 04/12/19 14:15 Dose: 50 mg Sucralfate (Carafate Oral Suspension -) 1 gm PO BID [facility] Last Admin: 11/30/18 11:32 Dose: 1 gm Timolol Maleate (Timoptic 0.5%) 1 drop OU BID [facility] Last Admin: 11/30/18 11:34 Dose: 1 drop Vancomycin HCl (Vancomycin Oral Solution) 125 mg PO Q6HPO [facility] Last Admin: 11/30/18 12:32 Dose: 125 mg Vital Signs: Vital Signs Period Temp Pulse Resp BP Sys/Adorno Pulse Ox Last 24 Hr 97.8 F-99.1 F 63-92 18-20 123-141/49-67 98-100 Constitutional: Yes: No Distress, Obese Eyes: No: Sclera Icterus Respiratory: Yes: CTA Bilaterally. No: Accessory Muscle Use, Rales, Wheezes Gastrointestinal: Yes: Normal Bowel Sounds. No: Distention, Hepatomegaly, Palpable Mass, Tenderness Cardiovascular: Yes: Regular Rate and Rhythm (soft heart sounds) JVD: No Heart Sounds: Yes: S1, S2. No: Gallop Murmur: No: Systolic Murmur, Diastolic Murmur Extremities: No: Cool, Cyanosis Edema: No Peripheral Pulses: 2+ Left Carotid, 2+ Right Carotid, 2+ Left Doralis Pedis, 2+ Right Dorsalis Pedis Integumentary: No: Jaundice Neurological: Yes: Alert, Oriented (x3) Psychiatric: No: Agitated ekg: SR, RBBB,no sig change vs prior echo 08/2018: nl lv/rv, mild mr cxr: no sig chf mibi 11/2018 small to mod zone of inferolateral and lateral reversible defect c/ w mild intensity ischemia, EF 59% echo 11/2018 nl LV function, EF 55-60%, grade I diastolic dysufnction, PASP at least 41 mmHg tele: sinus a/p: uti/pyelo: -plan per ID, urology presumed cad, cp: -recent admit for cp. echo then with nl EF. Recent mibi with mild ischemia and pt/family opted for med management, no cath. -no signs acs, trops unremarkable -CP today worse with position changes, palpation - likely MSK -cont asa, monitor for new sxs HTN: -cont home meds - restart home lasix on discharge, appears euvolemic DM: -per primary MD CKD: -currently stable renal fxn
--- NOTE | 2018-11-30 15:59 | DS ---
Physical Exam: SUBJECTIVE: Patient seen and examined at bedside. OBJECTIVE: Vital Signs Temperature 98.2 F 11/30/18 15:51 Pulse Rate 63 11/30/18 15:51 Respiratory Rate 18 11/30/18 15:51 Blood Pressure 127/58 L 11/30/18 15:51 O2 Sat by Pulse Oximetry (%) 100 11/30/18 09:00 PHYSICAL EXAM GENERAL: The patient is awake, alert, and fully oriented, in no acute distress. HEAD: Normal with no signs of trauma. EYES: PERRLA, EOMI, sclera anicteric, conjunctiva clear. ENT: Ears normal, nares patent, oropharynx clear without exudates, moist mucous membranes. NECK: Trachea midline, full range of motion, supple. LUNGS: Breath sounds equal, clear to auscultation bilaterally. HEART: Regular rate and rhythm, S1, S2 without murmur, rub or gallop. ABDOMEN: Soft, nontender, nondistended, normoactive bowel sounds, urostomy bag in place with clear urine. EXTREMITIES: 2+ pulses, warm, well-perfused, no edema. PSYCH: Normal mood, normal affect. SKIN: Warm, dry, normal turgor, no rashes or lesions noted LABS Laboratory Results - last 24 hr 11/29/18 11/30/18 11/30/18 17:02 06:10 06:10 WBC 4.7 RBC 2.87 L Hgb 8.2 L Hct 25.4 L MCV 88.7 MCH 28.7 MCHC 32.4 RDW 15.9 H Plt Count 171 MPV 10.0 Sodium 141 Potassium 4.3 Chloride 113 H Carbon Dioxide 26 Anion Gap 2 L BUN 11 Creatinine 1.5 H Creat Clearance w eGFR 33.50 POC Glucometer 136 Random Glucose 190 H Calcium 7.9 L Phosphorus 2.9 Magnesium 1.7 L Triglycerides 144 Cholesterol 91 Total LDL Cholesterol 50 HDL Cholesterol 28 L 11/30/18 11/30/18 06:16 11:48 WBC RBC Hgb Hct MCV MCH MCHC RDW Plt Count MPV Sodium Potassium Chloride Carbon Dioxide Anion Gap BUN Creatinine Creat Clearance w eGFR POC Glucometer 168 144 Random Glucose Calcium Phosphorus Magnesium Triglycerides Cholesterol Total LDL Cholesterol HDL Cholesterol HOSPITAL COURSE: Date of Admission:11/22/18 Date of Discharge: 11/30/18 Patient is a 78 year old female with past medical history of IDDM, HTN, SAH, Bladder cancer s/p ileal conduit, DVT and IVC filters, GERD, CKD and Parkinson' s disease, presented with fever, lethargy and diarrhea. Patient was found to have a urinary tract infection. CTAP was done which revealed bilateral hydronephrosis. She was started on IV antibiotics. ID and urology were consulted. Urine cultures grew Salmonella. Patient underwent ileogram and ileoscopy and was noted to have right ureteral dilatation with good reflux. Patient continued to improved throughout her hospital stay. Patient was also reporting left sided chest pain. EKG and trops were unremarkable. She was seen by the grades 1 6 tutor. Patient was discharged with instructions to continue PO antibiotics for 2 more weeks and to follow up with PCP, ID, urology and cardiology. Minutes to complete discharge: 39 Discharge Summary Reason For Visit: URINARY TRACT INFECTION,PRESENCE OF UROSTOMY Current Active Problems ACS (acute coronary syndrome) (Acute) Diarrhea (Acute) Fever and chills (Acute) Left ear pain (Acute) Sepsis (Acute) Urinary tract infection (Acute) Condition: Improved - Instructions Diet, Activity, Other Instructions: Your visit You were admitted to the hospital because you had a kidney infection. You were treated with IV antibiotics. You were evaluated by the urologist (Dr. Gomez). Please follow-up with him to discuss further care and management. Your stool was also cultured. Please follow up with the infectious doctor to discuss the results. We will give you a script for a repeat blood work in 2 days. Please have this done and follow-up with your primary care doctor infectious disease doctor. Medications Please take the following medications as prescribed: 1. Levaquin 500mg once a day for 2 weeks. 2. Bacid 1 tab daily. Please STOP taking the Hydrocholorothiazide. Continue your other home medications as instructed. Follow up Please follow up with your primary care physician within 1 week. Please follow up with the urologist (Dr. Gomez) within 1 week. please follow up with infectious disease (Dr. Fulton) within 1 week. Please follow up with the grades 1 [address] tutor (Dr. Gaming) within 1 week. Additional info Call 911 or go to the ED if with any worsening fever, chills, headache, nausea, vomiting, chest pain, shortness of breath, belly pain, bloody urine or stools. Referrals: Xochitl Fulton MD [Staff Physician] - 1 Week Micaela Gaming MD [Staff Physician] - 1 Week Lamberto Gomez MD [Staff Physician] - 1 Week Disposition: VNS/HOME HEALTH CARE - Home Medications Comprehensive Discharge Medication List: Ambulatory Orders Insulin NPL/Insulin Lispro [Humalog Mix 75-25 Pen] 30 unit SQ AM 05/04/13 Insulin Lispro Protamin/Lispro [Humalog Mix 75-25 Vial] 27 unit SQ HS 12/22/16 Multivitamins [Multivit ([facility] Formulary)] 1 mg PO DAILY 05/08/17 Omeprazole 40 mg PO BID 05/08/17 Pregabalin [Lyrica -] 50 mg PO TID 05/08/17 Pramipexole Dihydrochloride [Mirapex -] 0.5 mg PO BID 03/14/18 Calcium Carbonate/Vitamin D3 [Calcium 600 + Vit D 400 Softgl] 600 mg PO TID Carbidopa/Levodopa [Carbidopa-Levodopa 25-100 Tab] 0.5 each PO TID 09/13/18 Baclofen 10 mg PO TID 11/17/18 Brimonidine Tartrate/Timolol [Combigan 0.2%-0.5% Eye Drops] 5 ml OU BID Docusate Sodium 100 mg PO DAILY 11/17/18 Furosemide [Lasix -] 40 mg PO DAILY 11/17/18 Aspirin Coated [Ecotrin -] 81 mg PO DAILY #30 tablet.ec 11/19/18 Acetaminophen [Tylenol .Regular Strength -] 650 mg PO Q4H PRN tablet 11/30/18 Atorvastatin Ca [Lipitor] 40 mg PO HS tablet 11/30/18 Lactobacillus Acidophilus [Bacid -] 1 each PO DAILY #60 capsule 11/30/18 Miscellaneous Medical Supply [Outpatient Order] 1 each ASDIR #1 misc Timolol 0.5% [Timoptic 0.5%] 1 drop OU BID drops 11/30/18 levoFLOXacin [Levaquin -] 500 mg PO DAILY #14 tablet 11/30/18 This patient is new to me today: No Emergency Visit: Yes ED Registration Date: 11/22/18 Care time: The patient presented to the Emergency Department on the above date and was hospitalized for further evaluation of their emergent condition. Critical Care patient: No - Discharge Referral Referred to [facility] Med P.[facility] No
[2018-11-30] MEDS ORDERED: INSULIN (NOVOLOG) ASPART 100 UNITS/ML 10ML VIAL ONE (16:46)
--- NOTE | 2018-11-30 21:33 | PN ---
Teaching Attending Note Name of Resident: Humaiar Valero ATTENDING PHYSICIAN STATEMENT I saw and evaluated the patient. I reviewed the resident's note and discussed the case with the resident. I agree with the resident's findings and plan as documented. SUBJECTIVE: Patient is feeling better with no acute distress. OBJECTIVE: Vital Signs Temperature 98.2 F 11/30/18 15:51 Pulse Rate 63 11/30/18 15:51 Respiratory Rate 18 11/30/18 15:51 Blood Pressure 127/58 L 11/30/18 15:51 O2 Sat by Pulse Oximetry (%) 100 11/30/18 09:00 GENERAL: The patient is awake, alert, and fully oriented, in no acute distress. HEAD: Normal with no signs of trauma. EYES: PERRLA, EOMI, sclera anicteric, conjunctiva clear. ENT: Ears normal, oropharynx clear without exudates, moist mucous membranes. NECK: Trachea midline, full range of motion, supple. LUNGS: Breath sounds equal, clear to auscultation bilaterally. HEART: Regular rate and rhythm, S1, S2 without murmur, rub or gallop. ABDOMEN: Soft, nontender, nondistended, normoactive bowel sounds. EXTREMITIES: 2+ pulses, warm, well-perfused, no edema. PSYCH: Normal mood, normal affect. SKIN: Warm, dry, normal turgor, no rashes or lesions noted CBCD WBC 4.7 K/mm3 (4.0-10.0) 11/30/18 06:10 RBC 2.87 M/mm3 (3.60-5.2) L 11/30/18 06:10 Hgb 8.2 GM/dL (10.7-15.3) L 11/30/18 06:10 Hct 25.4 % (32.4-45.2) L 11/30/18 06:10 MCV 88.7 fl (80-96) 11/30/18 06:10 MCHC 32.4 g/dl (32.0-36.0) 11/30/18 06:10 RDW 15.9 % (11.6-15.6) H 11/30/18 06:10 Plt Count 171 K/MM3 (134-434) 11/30/18 06:10 MPV 10.0 fl (7.5-11.1) 11/30/18 06:10 CMP Sodium 141 mmol/L (136-145) 11/30/18 06:10 Potassium 4.3 mmol/L (3.5-5.1) 11/30/18 06:10 Chloride 113 mmol/L (98-107) H 11/30/18 06:10 Carbon Dioxide 26 mmol/L (21-32) 11/30/18 06:10 Anion Gap 2 MMOL/L (8-16) L 11/30/18 06:10 BUN 11 mg/dL (7-18) 11/30/18 06:10 Creatinine 1.5 mg/dL (0.55-1.3) H 11/30/18 06:10 Creat Clearance w eGFR 33.50 (>60) 11/30/18 06:10 Random Glucose 190 mg/dL (74-106) H 11/30/18 06:10 Calcium 7.9 mg/dL (8.5-10.1) L 11/30/18 06:10 Total Bilirubin 0.5 mg/dL (0.2-1) 11/25/18 06:00 AST 36 U/L (15-37) 11/25/18 06:00 ALT 12 U/L (13-61) L 11/25/18 06:00 Alkaline Phosphatase 117 U/L (45-117) 11/25/18 06:00 Total Protein 5.8 g/dl (6.4-8.2) L 11/25/18 06:00 Albumin 2.1 g/dl (3.4-5.0) L 11/25/18 06:00 CARDIAC ENZYMES Troponin I < 0.02 ng/ml (0.00-0.05) 11/28/18 06:30 Current Medications Generic Name Dose Route Start Last Admin Trade Name Freq PRN Reason Stop Dose Admin Acetaminophen 650 mg 11/29/18 23:59 11/30/18 10:01 Tylenol - PO 650 mg Q4H PRN Administration FEVER Ascorbic Acid 500 mg 11/30/18 10:00 11/30/18 21:09 Vitamin C - PO 500 mg BID GLORIA Administration Aspirin 81 mg 11/30/18 10:00 11/30/18 11:32 Ecotrin - PO 81 mg DAILY GLORIA Administration Atorvastatin Calcium 40 mg 11/30/18 22:00 04/12/19 21:09 Lipitor - PO 40 mg HS GLORIA Administration Brimonidine Tartrate 1 drop 11/30/18 10:00 11/30/18 21:10 Alphagan 0.2% - OU 1 drop BID GLORIA Administration Calcium Carbonate/Cholecalciferol 1 tab 11/30/18 06:00 11/30/18 21:09 Os-Jay 500+D - PO 1 tab TID GLORIA Administration Carbidopa/Levodopa 0.5 each 11/30/18 06:00 11/30/18 21:09 Sinemet 25/100 - PO 0.5 each TID GLORIA Administration Docusate Sodium 100 mg 11/30/18 10:00 11/30/18 11:32 Colace - PO 100 mg DAILY GLORIA Administration Heparin Sodium (Porcine) 5,000 unit 11/30/18 06:00 11/30/18 21:10 Heparin - SQ 5,000 unit TID GLORIA Administration Insulin Aspart 1 vial 11/30/18 07:00 11/30/18 16:49 Novolog Vial Sliding Scale - SQ 2 units TIDAC [facility] Administration Protocol Lactobacillus Acidophilus 1 tab 11/30/18 10:00 11/30/18 21:09 Bacid - PO 1 tab BID GLORIA Administration Levofloxacin 500 mg 12/01/18 06:00 Levaquin - PO DAILY@0600 [facility] Pantoprazole Sodium 40 mg 11/30/18 10:00 11/30/18 11:32 Protonix - PO 40 mg DAILY GLORIA Administration Pregabalin 50 mg 11/30/18 06:00 11/30/18 21:09 Lyrica - PO 50 mg TID GLORIA Administration Sucralfate 1 gm 11/30/18 10:00 11/30/18 21:10 Carafate Oral Suspension - PO 1 gm BID GLORIA Administration Timolol Maleate 1 drop 11/30/18 10:00 11/30/18 21:10 Timoptic 0.5% OU 1 drop BID GLORIA Administration Home Medications Medication Instructions Recorded Multivitamins [Multivit ([facility] 1 mg PO DAILY 05/08/17 Formulary)] Omeprazole 40 mg PO BID 05/08/17 Pregabalin [Lyrica -] 50 mg PO TID 05/08/17 Pramipexole Dihydrochloride 0.5 mg PO BID 03/14/18 [Mirapex -] Calcium Carbonate/Vitamin D3 600 mg PO TID 03/15/18 [Calcium 600 + Vit D 400 Softgl] Carbidopa/Levodopa 0.5 each PO TID 09/13/18 [Carbidopa-Levodopa 25-100 Tab] Baclofen 10 mg PO TID 11/17/18 Brimonidine Tartrate/Timolol 5 ml OU BID 11/17/18 [Combigan 0.2%-0.5% Eye Drops] Docusate Sodium 100 mg PO DAILY 11/17/18 Furosemide [Lasix -] 40 mg PO DAILY 11/17/18 Aspirin Coated [Ecotrin -] 81 mg PO DAILY #30 tablet.ec 11/19/18 Acetaminophen [Tylenol .Regular 650 mg PO Q6H PRN tablet 11/30/18 Strength -] Ascorbic Acid [Vitamin C -] 500 mg PO BID tablet 11/30/18 Atorvastatin Ca [Lipitor] 40 mg PO HS tablet 11/30/18 Heparin - 5,000 unit SQ TID vial 11/30/18 Insulin Lispro Protamin/Lispro 10 unit SQ HS #1 insuln.pen 11/30/18 [Humalog Mix 75-25 Kwikpen] Insulin Lispro Protamin/Lispro 15 unit SQ AM #1 insuln.pen 11/30/18 [Humalog Mix 75-25 Kwikpen] Insulin Sliding Scale [Novolog 1 vial SQ TIDAC units 11/30/18 Vial Sliding Scale -] Lactobacillus Acidophilus [Bacid -] 1 tab PO BID tab 11/30/18 Miscellaneous Medical Supply 1 each ASDIR #1 misc 11/30/18 [Outpatient Order] Timolol 0.5% [Timoptic 0.5%] 1 drop OU BID drops 11/30/18 levoFLOXacin [Levaquin -] 500 mg PO DAILY #14 tablet 11/30/18 Microbiology 11/29/18 05:00 Stool Salmonella/Shigella Culture - Preliminary NO ENTERIC PATHOGENS, 24 HOURS, ON PRIMARY PLATES 11/29/18 05:00 Stool Yersinia Culture - Preliminary NO ENTERIC PATHOGENS, 24 HOURS, ON PRIMARY PLATES 11/29/18 05:00 Stool Vibrio Culture - Preliminary NO ENTERIC PATHOGENS, 24 HOURS, ON PRIMARY PLATES 11/29/18 05:00 Stool Escherichia coli 0157 Culture - Preliminary NO ENTERIC PATHOGENS, 24 HOURS, ON PRIMARY PLATES 11/23/18 12:47 Blood - Peripheral Venous Blood Culture - Final NO GROWTH AFTER 5 DAYS INCUBATION 11/23/18 12:50 Blood - Peripheral Venous Blood Culture - Final NO GROWTH AFTER 5 DAYS INCUBATION 11/22/18 19:01 Blood - Peripheral Venous Blood Culture - Final NO GROWTH AFTER 5 DAYS INCUBATION 11/22/18 19:01 Blood - Peripheral Venous Blood Culture - Final NO GROWTH AFTER 5 DAYS INCUBATION 11/22/18 19:01 Urine - Urostomy Bag Urine Culture - Preliminary Klebsiella Pneumoniae Salmonella Species Enterococcus Faecalis ASSESSMENT AND PLAN: Patient is a 77yo female with PMHx of PMHx of HTN, DM, Bladder cancer s/p ileal conduit, SBO, abd wall hernias, SAH,salmonella enteritis and bacteremia, with positive stress test , CKD ( Cr base line 1.5), DVTs and IVC filter who presented with fever, AMS and diarrhea . # s/p Sepsis: due to pyelnephritis. with hx of urinary salmonella and hx of salmonella bacteremia urine cx Klebsiella, salmonella and group D strep.IV zosyn will be switched to oral Levaquin as per ID for total of 14 days 500mg daily. as per ID. Ileoscopy was not possible, but ileostogram showed dilated R ureter but faint visualization of L ureter. Initial CT with gastrograph. did not show any fistula. discussed with urologist no further plan for her just to follow up wifor further plan and ID for discharge instructions. # Left sided CP: with positive stress test 11/19 with reversible lateral ischemia. Cath was declined by family then. continue asa. Appreciate card recs. # Diarrhea: No further diarrhea at this time. # NATASHA on CKD: on IV hydration due to volume depletion . On hold lasix and HCTZ # T2DM: humolog insulin doses are reduced . cont SSI.since patient was having hypoglycemia as an out pt # HTN: hold lasix and HCTZ # Parkinson's : cont CArbidopa/Levo dopa DVT Px: heparin sq
[2018-11-30] MEDS ORDERED: ATORVASTATIN CA 40 MG TABLET (FP) PO SCH (22:00)
[2018-11-30 23:54] VITALS: BMI 47.6
[2018-12-01] MEDS: CALCIUM 500MG/VIT-D 200 UNITS COMBO TABLET (FP) PO SCH (06:00)
[2018-12-01] MEDS: HEPARIN NA (PORCINE) 5,000 UNITS/ML 1ML VIAL SQ SCH (06:00)
[2018-12-01] MEDS: CARBIDOPA/LEVODOPA 25/100 TABLET (FP) PO SCH (06:00)
[2018-12-01] MEDS: PREGABALIN 50 MG CAPSULE PO SCH (06:00)
[2018-12-01] MEDS: INSULIN SLIDING SCALE (NOVOLOG) 1 VIAL SQ SCH (06:28)
[2018-12-01] MEDS ORDERED: INSULIN (NOVOLOG) ASPART 100 UNITS/ML 10ML VIAL ONE (06:36)
[2018-12-01 09:06] VITALS: BP 144/58; PULSE 69; TEMP 98.5
[2018-12-01] MEDS: ASPIRIN COATED 81 MG TABLET.EC PO SCH (09:20)
[2018-12-01] MEDS: PANTOPRAZOLE 40 MG TABLET (FP) PO SCH (09:20)
[2018-12-01] MEDS: BRIMONIDINE TARTRATE 0.2% OPHTHALMIC 5 ML BOTTLE OU SCH (09:21)
[2018-12-01] MEDS: LACTOBACILLUS ACIDOPHILUS 1 TABLET PO SCH (09:21)
[2018-12-01] MEDS: ASCORBIC ACID 500 MG TABLET (FP) PO SCH (09:21)
[2018-12-01] MEDS: TIMOLOL 0.5% OPHTHALMIC SOL 5 ML BOTTLE OU SCH (09:21)
[2018-12-01] MEDS: SUCRALFATE 1 GM/10 ML UNIT DOSE CUPS PO SCH (09:21)
[2018-12-01] MEDS: DOCUSATE SODIUM 100 MG CAPSULE (FP) PO SCH (09:23)
== END 2018-12-01 11:02 | disposition home health service (06) | DRG 871 ==
LOC: JER 18:11 → JERBED 21:59 → J4S 11-23 01:10 → J6S 11-29 17:31
PROVIDERS: ADMIT Internal Medicine; ATTEND Internal Medicine
PROC: 0D7 Gastrointestinal System, Dilation (ICD-10-PCS; principal; 2018-11-27 14:30)
DX: A41.9 Sepsis, unspecified organism (principal); G93.41 Metabolic encephalopathy; N17.9 Acute kidney failure, unspecified; I24.8 Other forms of acute ischemic heart disease; N13.30 Unspecified hydronephrosis; Z68.42 Body mass index [BMI] 45.0-49.9, adult; N39.0 Urinary tract infection, site not specified; N10 Acute pyelonephritis; E66.01 Morbid (severe) obesity due to excess calories; R19.7 Diarrhea, unspecified; I12.9 Hypertensive chronic kidney disease with stage 1 through stage 4 chronic kidney disease, or unspecified chronic kidney disease; N18.9 Chronic kidney disease, unspecified; E11.22 Type 2 diabetes mellitus with diabetic chronic kidney disease; G20 Parkinson's disease; K21.9 Gastro-esophageal reflux disease without esophagitis; E86.9 Volume depletion, unspecified; R07.9 Chest pain, unspecified; R74.0 Nonspecific elevation of levels of transaminase and lactic acid dehydrogenase [LDH]; E83.39 Other disorders of phosphorus metabolism; E83.42 Hypomagnesemia; E83.51 Hypocalcemia; B96.1 Klebsiella pneumoniae [K. pneumoniae] as the cause of diseases classified elsewhere; R00.0 Tachycardia, unspecified
CPT/HCPCS: 36415; 70450-TC; 71045-TC-FY; 71046-TC-FY; 74176-TC; 76000-TC-FY; 76705-TC; 76775-TC; 78452-TC; 80048; 80053; 80061; 80076; 81003; 82150; 82248; 82272; 82550; 82728; 82962; 83036; 83540; 83550; 83605; 83690; 83721; 83735; 84100; 84484; 85025; 85027; 85610; 85730; 87040; 87045; 87046; 87086; 87177; 87186; 87209; 87804; 93005; 93010; 93017; 93306-TC; 93970-TC; 94760; 96365; 96375; 97116-GP; 97161-GP; 99284-25; 99285-25; A9502; G0378; J0131; J0475; J1644; J2785; J7030; Q9967

== ENCOUNTER 2019-02-06 16:47 | Inpatient (IN) | payer OTHER ==
[2019-02-06 17:14] VITALS: BMI 44.2
--- NOTE | 2019-02-06 19:00 | PDOC ---
History of Present Illness - General Chief Complaint: Weakness Stated Complaint: BLOOD SUGAR PROBLEM - History of Present Illness Initial Comments: The pt is a 77F with h/o HTN, DM, Bladder Ca s/p conduit, SAH (2017), DVT s/p IVC filter placement, CKD who presents for evaluation of lightheadedness w/ standing after having a BM today. She does endorse diarrhea for one day today. The pt reports almost syncopizing and falling but was caught by her grandson. She also reports epigastric, burning, non-radiating abdominal pain this evening that is constant and not exacerbated or alleviated by anything that she can identify. She denies recent fevers/chills, chest pain, SOB, changes in sensation or blood in her stool. The pt has had episodes of hypoglycemia in the past which the family thought this may be due to. [facility] gave the pt glucose on their arrival. Pt's BG was 101 on arrival. 02/06/19 19:02 Past History - Past Medical History Allergies/Adverse Reactions: Allergies Allergy/AdvReac Type Severity Reaction Status Date / Time latex Allergy Verified 02/06/19 17:13 Home Medications: Ambulatory Orders Multivitamins [Multivit ([facility] Formulary)] 1 mg PO DAILY 05/08/17 Omeprazole 40 mg PO BID 05/08/17 Pregabalin [Lyrica -] 50 mg PO TID 05/08/17 Calcium Carbonate/Vitamin D3 [Calcium 600 + Vit D 400 Softgl] 600 mg PO TID Furosemide [Lasix -] 40 mg PO DAILY PRN 11/17/18 Aspirin Coated [Ecotrin -] 81 mg PO DAILY #30 tablet.ec 11/19/18 Acetaminophen [Tylenol .Regular Strength -] 650 mg PO Q6H PRN tablet 11/30/18 Brimonidine Tartrate/Timolol [Combigan Eye Drops] 1 drop OU TID 02/06/19 Fluticasone Furoate [Arnuity Ellipta] 1 spray NS DAILY 02/06/19 Insulin Lispro Protamin/Lispro [Humalog Mix 75-25 Kwikpen] 25 unit SQ HS Insulin Lispro Protamin/Lispro [Humalog Mix 75-25 Kwikpen] 30 unit SQ AM Lisinopril/Hydrochlorothiazide [Lisinopril-Hctz 10-12.5 mg Tab] 1 tablet PO DAILY 02/06/19 Anemia: No Asthma: No Cancer: Yes (BLADDER) Cardiac Disorders: No CVA: Yes (2017, SAH) COPD: No CHF: No Dementia: No Diabetes: Yes GI Disorders: Yes (GERD, SBO's) Disorders: Yes (ileal conduit) HTN: Yes Hypercholesterolemia: No Liver Disease: No Seizures: No Thyroid Disease: No - Surgical History Abdominal Surgery: Yes Appendectomy: No Cardiac Surgery: No Cholecystectomy: Yes Lung Surgery: No Neurologic Surgery: No Orthopedic Surgery: Yes (R KNEE REPLACEMENT w/ revisions) - Immunization History Immunization Up to Date: Yes - Suicide/Smoking/Psychosocial Hx Smoking Status: No Smoking History: Never smoked Have you smoked in the past 12 months: No Number of Cigarettes Smoked Daily: 0 Information on smoking cessation initiated: No Hx Alcohol Use: No Drug/Substance Use Hx: No Substance Use Type: None Hx Substance Use Treatment: No Review of Systems - Review of Systems Able to Perform ROS?: Yes Comments:: GENERAL/CONSTITUTIONAL: No fever or chills. No weakness HEAD, EYES, EARS, NOSE AND THROAT: No change in vision. No ear pain or discharge. No sore throat CARDIOVASCULAR: No chest pain or shortness of breath RESPIRATORY: Denies cough, hemoptysis GASTROINTESTINAL: No vomiting, diarrhea or constipation GENITOURINARY: No dysuria, frequency, or change in urination MUSCULOSKELETAL: No joint or muscle swelling or pain. No neck or back pain SKIN: No rash NEUROLOGIC: No headache, vertigo, loss of consciousness, or change in strength/ sensation ENDOCRINE: No increased thirst. No abnormal weight change HEMATOLOGIC/LYMPHATIC: No anemia, easy bleeding, or history of blood clots ALLERGIC/IMMUNOLOGIC: No hives or skin allergy 02/06/19 18:59 Is the patient limited Kyrgyz proficient: No *Physical Exam - Vital Signs Last Vital Signs Temp Pulse Resp BP Pulse Ox 97.5 F L 73 18 115/52 L 96 02/06/19 17:08 02/06/19 17:08 02/06/19 17:08 02/06/19 17:08 02/06/19 17:40 - Physical Exam Comments: GENERAL: Awake, alert, and oriented to person/place/time, in no acute distress HEAD: No signs of trauma, normocephalic, atraumatic EYES: PERRLA, EOMI, sclera anicteric, conjunctiva clear ENT: Hearing grossly normal, nares patent, oropharynx clear without exudates. Moist mucosa LUNGS: No distress, speaks full sentences, clear to auscultation bilaterally HEART: Regular rate and rhythm, normal S1 and S2, no murmurs appreciated, peripheral pulses normal and equal bilaterally ABDOMEN: Soft, protuberant, urostomy with device in place with yellow urine in bag, mild RUQ/LUQ abdominal pain that is reported as chronic w/o rebound or guarding EXTREMITIES: moving all extremities independently NEUROLOGICAL: Cranial nerves II through XII grossly intact. Normal speech, no focal sensorimotor deficits SKIN: Warm, Dry 02/06/19 18:59 ED Treatment Course - LABORATORY CBC & Chemistry Diagram: 02/06/19 19:50 02/06/19 19:50 - ADDITIONAL ORDERS Additional order review: Laboratory Results 02/06/19 17:01 POC Glucometer 101 02/06/19 17:01 POC Glucometer 101 Medical Decision Making - Medical Decision Making ED Course CMP, CBC, Trop I, Lipase, UA, UCx ECG CXR, CT Head Plan for likely Tele obs for pre-syncope Protonix 40mg IV once for GERD as pt was unable to take her omeprazole this afternoon 02/06/19 19:32 No leukocytosis Chronic anemia Lyes unremarkable Cr near baseline Trop I neg Lipase unremarkable ECG similar to previous CT head read pending Plan for Tele obs for pre-syncope 02/06/19 21:25 CT head w/o acute pathology or interval change 02/06/19 22:18 Will treat UTI w/ Levofloxacin Dispo: Tele 02/07/19 00:26 *DC/Admit/Observation/Transfer Diagnosis at time of Disposition: Pre-syncope - Discharge Dispostion Condition at time of disposition: Good Decision to Admit order: Yes - Referrals - Patient Instructions - Post Discharge Activity
[2019-02-06] MEDS ORDERED: PANTOPRAZOLE SODIUM 40 MG VIAL IVPUSH ONE (19:32)
[2019-02-06] MEDS ORDERED: PANTOPRAZOLE SODIUM 40 MG/100 ML BAG IVPB ONE (19:58)
[2019-02-06] MEDS ORDERED: ACETAMINOPHEN 325 MG TABLET (FP) PO ONE (20:01)
[2019-02-06] MEDS ORDERED: ACETAMINOPHEN 325 MG TABLET (FP) ONE (20:02)
[2019-02-06 20:13] LABS: BASO % 0.6 % (0-2.0); EOS % 0.7 % (0-4.5); HEMATOCRIT 32.2 % (32.4-45.2); HEMOGLOBIN 10.3 GM/dL (10.7-15.3); LYMPH % 11.9 % (8-40); MCH 28.2 pg (25.7-33.7); MCHC 31.9 g/dl (32.0-36.0); MEAN CELL VOLUME 88.5 fl (80-96); MEAN PLT VOLUME 9.4 fl (7.5-11.1); MONO % 5.6 % (3.8-10.2); NEUT % 81.2 % (42.8-82.8); PLATELET COUNT 176 K/MM3 (134-434); RBC 3.64 M/mm3 (3.60-5.2); RDW 16.3 % (11.6-15.6); WHITE BLOOD COUNT 6.7 K/mm3 (4.0-10.0)
[2019-02-06 20:14] LABS: EPI CELLS 1.3 /HPF (0-5/HPF); HYALINE CASTS 2 /lpf (0-8); PH,URINE 5.5 (5.0-8.0); URINE APPEARANCE TURBID; URINE BACTERIA 6152.8 /hpf (NEGATIVE); URINE BILIRUBIN NEGATIVE (NEGATIVE); URINE COLOR YELLOW; URINE GLUCOSE (UA) NEGATIVE (NEGATIVE); URINE KETONE NEGATIVE (NEGATIVE); URINE LEUK ESTERASE 3+ (NEGATIVE); URINE NITRITE NEGATIVE (NEGATIVE); URINE PROTEIN 1+ (NEGATIVE); URINE UROBILINOGEN 0.2 mg/dL (0.2-1.0); URINE WBC 365 /hpf (0-5)
[2019-02-06 20:26] LABS: URINE RBC 9 /hpf (0-4)
[2019-02-06 20:39] LABS: ALK PHOS 182 U/L (45-117); ANION GAP 5 MMOL/L (8-16); BILIRUBIN,TOTAL 0.3 mg/dL (0.2-1); BLOOD UREA NITROGEN 28.7 mg/dL (7-18); CALCIUM 8.3 mg/dL (8.5-10.1); CHLORIDE 109 mmol/L (98-107); CO2 28 mmol/L (21-32); CREATININE 1.9 mg/dL (0.55-1.3); GLUCOSE,RANDOM 122 mg/dL (74-106); LIPASE 51 U/L (73-393); POTASSIUM 5.1 mmol/L (3.5-5.1); SGOT/AST 17 U/L (15-37); SGPT/ALT 27 U/L (13-61); SODIUM 142 mmol/L (136-145); TOT PROT 6.8 g/dl (6.4-8.2)
--- NOTE | 2019-02-07 00:02 | PN ---
Teaching Attending Note Name of Resident: Diallo Ley ATTENDING PHYSICIAN STATEMENT I saw and evaluated the patient. I reviewed the resident's note and discussed the case with the resident. I agree with the resident's findings and plan as documented. SUBJECTIVE: Patient is a 78 year old woman with PMH of HTN, Insulin-treated DM, Bladder Ca ( s/p radical cystectomy and urostomy placement 2004), SAH, DVTs (s/p IVC Filter, not on AC), CKD, GERD, and Parkinson's Disease who presents after pre-syncopal episode while on the toilet moving his bowel. Patient states that she never lost consciousness and was helped up by her son to the couch where she continued to feel tired and lightheaded. She says that her lightheadedness increased upon standing and that she had one episode of diarrhea consisting of black stool. She also had a burning epigastric pain, decreased appetite for the last year and a 20 pound unintentional weight loss over the last 6 months. She denies any dysuria, fever, chills, chest pain, shortness of breath or hematochezia. OBJECTIVE: Alert and not orthostatic Vital Signs Period Temp Pulse Resp BP Sys/Adorno Pulse Ox Last 24 Hr 97.5 F-97.8 F 62-80 17-18 110-127/52-59 96-99 HEENT: No Jaundice, eye redness or discharge, PERRLA, EOMI. Normocephalic, atraumatic. External ears are normal and hearing is grossly intact. No nasal discharge. Neck: Supple, nontender. No palpable adenopathy or thyromegaly. No JVD Chest: Good effort. Clear to auscultation and percussion. Heart: Regular. No S3, rub or murmur Abdomen: Not distended, soft, diffuse tenderness and no HSM. No rebound or guarding. Normal bowel sounds. Suprapubic catheter in place. Ext: Peripheral pulses intact. No leg edema. Skin: Warm and dry. No petechiae, rash or ecchymosis. Neuro: Alert. Oriented x3. CN 2-12 grossly intact. Sensation grossly intact in all four extremities and DTR are symmetric. Psych: Appropriate mood and affect. Good insight. Current Medications Generic Name Dose Route Start Last Admin Trade Name Freq PRN Reason Stop Dose Admin Sodium Chloride 1,000 mls @ 50 mls/hr 02/07/19 02:15 Normal Saline - IV 02/08/19 02:08 ASDIR GLORIA Levofloxacin 750 mg in 150 mls @ 100 mls/hr 02/09/19 00:30 Levaquin 750 Mg Premixed Ivpb - IVPB Q48H [facility] Protocol Home Medications Medication Instructions Recorded Multivitamins [Multivit ([facility] 1 mg PO DAILY 05/08/17 Formulary)] Omeprazole 40 mg PO BID 05/08/17 Pregabalin [Lyrica -] 50 mg PO TID 05/08/17 Calcium Carbonate/Vitamin D3 600 mg PO TID 03/15/18 [Calcium 600 + Vit D 400 Softgl] Furosemide [Lasix -] 40 mg PO DAILY PRN 11/17/18 Aspirin Coated [Ecotrin -] 81 mg PO DAILY #30 tablet.ec 11/19/18 Acetaminophen [Tylenol .Regular 650 mg PO Q6H PRN tablet 11/30/18 Strength -] Brimonidine Tartrate/Timolol 1 drop OU TID 02/06/19 [Combigan Eye Drops] Fluticasone Furoate [Arnuity 1 spray NS DAILY 02/06/19 Ellipta] Insulin Lispro Protamin/Lispro 25 unit SQ HS 02/06/19 [Humalog Mix 75-25 Kwikpen] Insulin Lispro Protamin/Lispro 30 unit SQ AM 02/06/19 [Humalog Mix 75-25 Kwikpen] Lisinopril/Hydrochlorothiazide 1 tablet PO DAILY 02/06/19 [Lisinopril-Hctz 10-12.5 mg Tab] Abnormal Lab Results 02/06/19 02/06/19 02/06/19 19:50 19:50 19:50 Hgb 10.3 L Hct 32.2 L D MCHC 31.9 L RDW 16.3 H Chloride 109 H Anion Gap 5 L BUN 28.7 H Creatinine 1.9 H Random Glucose 122 H Calcium 8.3 L Alkaline Phosphatase 182 H Albumin 3.0 L Lipase 51 L Urine Protein 1+ H Urine Blood 2+ H Ur Leukocyte Esterase 3+ H ASSESSMENT AND PLAN: 1. Pre-syncope/UTI - Presyncope likely vasovagal - magnified by multiple blood pressure lowering medications that she is taking as well as UTI. No acute abnormality on head CT or CXR. EKG is NSR with RBBB and T wave inversion in V1, 2. Initial troponin is negative. Will trend troponin and repeat EKG. Recent ECHO showed normal LVEF and diastolic dysfunction. Will hydrate gently and hold blood pressure lowering drugs. Based on recent UTI therapy, pending urine culture, will treat with IV levaquin - adjusted for GFR. 2. Hypoalbuminemia - Possibly due to combined effects of proteinuria, malnutrition and inflammation associated with comorbid chronic conditions. Will ensure adequate dietary protein intake and also consult government employee. 3. CKD - Has multiple risk factors for CKD. Will consult nephrology and avoid nephrotoxic agents such as NSAIDS, aminoglycosides, contrast dyes and certain Alternative medicine products. 4. Anemia - Likely multifactorial including renal anemia. Do basic anemia work up including serial stool guaiacs, reticulocyte count and iron studies. 5. Obesity Counseled on the risks associated with obesity. Will provide patient all the necessary assistance, counseling and positive reinforcement to facilitate weight loss. Consult government employee. 6. Hypertension - Restart suitable outpatient antihypertensive drugs when clinically appropriate. Nonpharmacologic measures to control hypertension like weight loss, salt restriction and exercise discussed. 7. DVT prophylaxis - Heparin 5000u sq tid. 8. Advance directives - Full code
--- NOTE | 2019-02-07 00:09 | PDOC ---
Documentation entered by Katarina Chris SCRIBE, acting as scribe for Nila Gonzales DO. Nila Gonzales DO: This documentation has been prepared by the Aries benson Adrianna, SCRIBE, under my direction and personally reviewed by me in its entirety. I confirm that the documentation accurately reflects all work, treatment, procedures, and medical decision making performed by me. Attending Attestation - Resident Resident Name: JensenakiKaushal - ED Attending Attestation I have performed the following: I have examined & evaluated the patient, The case was reviewed & discussed with the resident, I agree w/resident's findings & plan - HPI HPI: The patient is a 78 year old female, with a significant PMH of bladder cancer ( s/p ileal conduit), GERD, multiple SBOs, DM, HTN, CVA, SAH, Parkinsons CKD, and DVT (s/p IVC filter), who presents to the ED for evaluation of one episode of lightheadedness earlier today. Patient notes she was on the toilet passing loose stool that began today, when she stood up and felt lightheaded. She does note she was about to pass out, when her grandson caught her so she did not fall or hit her head. Family at bedside notes she was slow to respond following the episode. She endorses epigastric abdominal pain at this time. They do note she has had hypoglycemia in the past which has caused similar instances, and her blood glucose level was 101 upon arrival. Allergies: Latex Past surgical history: Cholecystectomy, right knee total knee replacement Social history: No reported PCP: Dr. Rufina Elizalde 02/06/19 19:34 - Physicial Exam PE: Agree with resident exam. 02/06/19 19:34 - Medical Decision Making EXAM#: TYPE/EXAM: RESULT: [id number] CT/HEAD CT WITHOUT CONTRAST Cranial CT without contrast Clinical information: presyncope Impression: No CT evidence of acute intracranial pathology. There has been no definite interval change in comparison to a prior CT exam of 11/29/2018. Reported By: Brandon Heredia MD 02/06/19 22:04 02/06/19 22:12 02/07/19 00:07 78-year-old female with near syncopal episode witnessed by family EKG showed no acute ST segment elevations Plan for admission to hospitalist service for observation
[2019-02-07] MEDS ORDERED: SODIUM CHLORIDE 1,000 ML IV SCH (02:15)
--- NOTE | 2019-02-07 02:19 | HP ---
CHIEF COMPLAINT: PCP: [facility] HISTORY OF PRESENT ILLNESS: Pt. is a 78 y.o. F w/ PMHx. of HTN, IDDM, Bladder Ca (s/p radical cystectomy and urostomy placement 2004), SAH(2017-residual right sided weakness and, right sided facial droop with smile), DVTs (s/p IVC Filter, not on AC), CKD, GERD, and Parkinson's Disease presents after pre- syncopal episode while on the toilet passing stool. Pt. states that she never lost consciousness and was helped up by her son to the couch where she continued to feel tired and lightheaded. Pt. stated that her lightheadedness increased upon standing. Pt. states that she had one episode of diarrhea of black stool. Pt. endorses having a burning epigastric pain. Pt. endorses decreased appetite for the last year and a loss of 20 pounds over the last 6 months. Pt. denies any dysuria, fever, chills, chest pain, shortness of breath or hematochezia. ER course was notable for: (1) EKG, Tylenol, Protonix (2) UA/UCx., CXR (3) Recent Travel: No PAST MEDICAL HISTORY: As above PAST SURGICAL HISTORY: Left knee Replacement (+2 revisions), CCY(open), Eye surgery for muscle tear, Ectopic w/ tubal ligation Social History: Smoking: Denies Alcohol: Denies Drugs: Denies Family History: Mother- @ 72 2/2 [place], DM; Sister-cancer; Father-cancer Allergies latex Allergy (Verified 02/06/19 17:13) HOME MEDICATIONS: Home Medications Medication Instructions Recorded Multivitamins [Multivit ([facility] 1 mg PO DAILY 05/08/17 Formulary)] Omeprazole 40 mg PO BID 05/08/17 Pregabalin [Lyrica -] 50 mg PO TID 05/08/17 Calcium Carbonate/Vitamin D3 600 mg PO TID 03/15/18 [Calcium 600 + Vit D 400 Softgl] Furosemide [Lasix -] 40 mg PO DAILY PRN 11/17/18 Aspirin Coated [Ecotrin -] 81 mg PO DAILY #30 tablet.ec 11/19/18 Acetaminophen [Tylenol .Regular 650 mg PO Q6H PRN tablet 11/30/18 Strength -] Brimonidine Tartrate/Timolol 1 drop OU TID 02/06/19 [Combigan Eye Drops] Fluticasone Furoate [Arnuity 1 spray NS DAILY 02/06/19 Ellipta] Insulin Lispro Protamin/Lispro 25 unit SQ HS 02/06/19 [Humalog Mix 75-25 Kwikpen] Insulin Lispro Protamin/Lispro 30 unit SQ AM 02/06/19 [Humalog Mix 75-25 Kwikpen] Lisinopril/Hydrochlorothiazide 1 tablet PO DAILY 02/06/19 [Lisinopril-Hctz 10-12.5 mg Tab] REVIEW OF SYSTEMS As above PHYSICAL EXAMINATION Vital Signs - 24 hr 02/06/19 02/06/19 02/06/19 17:08 17:40 23:41 Temperature 97.5 F L 97.8 F Pulse Rate 73 Pulse Rate [ 80 Apical] Respiratory 18 17 Rate Blood Pressure 115/52 L Blood Pressure 127/59 L [Left Arm] O2 Sat by Pulse 96 96 99 Oximetry (%) GENERAL: Awake, alert, and fully oriented, in no acute distress. HEAD: Normal with no signs of trauma. EYES: Pupils equal, round and reactive to light, extraocular movements intact, sclera anicteric, conjunctiva clear. EARS, NOSE, THROAT: Ears normal, nares patent, oropharynx clear without exudates. Dry mucous membranes. NECK: Normal range of motion, supple without lymphadenopathy, JVD, or masses. LUNGS: Breath sounds equal, clear to auscultation bilaterally. No wheezes, and no crackles. No accessory muscle use. HEART: Regular rate and rhythm, normal S1 and S2 without murmur ABDOMEN: Soft, diffuse tenderness most prominent in RUQ, epigastrium and LUQ, not distended, normoactive bowel sounds, suprapubic jamison draining yellow urine UPPER EXTREMITIES: warm, well-perfused. No cyanosis. No clubbing. No peripheral edema. LOWER EXTREMITIES: 2+ dorsal pedal pulses, warm, well-perfused. No calf tenderness. No peripheral edema. NEUROLOGICAL: Normal speech. Gait not assessed PSYCHIATRIC: Cooperative. Good eye contact. Appropriate mood and affect. SKIN: Warm, dry, normal turgor Laboratory Results - last 24 hr 02/06/19 02/06/19 02/06/19 17:01 19:50 19:50 WBC 6.7 RBC 3.64 Hgb 10.3 L Hct 32.2 L D MCV 88.5 MCH 28.2 MCHC 31.9 L RDW 16.3 H Plt Count 176 MPV 9.4 Absolute Neuts (auto) 5.4 Neutrophils % 81.2 Lymphocytes % 11.9 D Monocytes % 5.6 Eosinophils % 0.7 D Basophils % 0.6 Nucleated RBC % 0 Sodium 142 Potassium 5.1 Chloride 109 H Carbon Dioxide 28 Anion Gap 5 L BUN 28.7 H Creatinine 1.9 H Est GFR (CKD-EPI)AfAm 28.56 Est GFR (CKD-EPI)NonAf 24.64 POC Glucometer 101 Random Glucose 122 H Calcium 8.3 L Total Bilirubin 0.3 AST 17 ALT 27 Alkaline Phosphatase 182 H Troponin I < 0.02 Total Protein 6.8 Albumin 3.0 L Lipase 51 L Urine Color Urine Appearance Urine pH Ur Specific [place] Urine Protein Urine Glucose (UA) Urine Ketones Urine Blood Urine Nitrite Urine Bilirubin Urine Urobilinogen Ur Leukocyte Esterase Urine WBC (Auto) Urine RBC (Auto) Urine Casts (Auto) U Epithel Cells (Auto) Urine Bacteria (Auto) 02/06/19 19:50 WBC RBC Hgb Hct MCV MCH MCHC RDW Plt Count MPV Absolute Neuts (auto) Neutrophils % Lymphocytes % Monocytes % Eosinophils % Basophils % Nucleated RBC % Sodium Potassium Chloride Carbon Dioxide Anion Gap BUN Creatinine Est GFR (CKD-EPI)AfAm Est GFR (CKD-EPI)NonAf POC Glucometer Random Glucose Calcium Total Bilirubin AST ALT Alkaline Phosphatase Troponin I Total Protein Albumin Lipase Urine Color Yellow Urine Appearance Turbid Urine pH 5.5 Ur Specific [place] 1.012 Urine Protein 1+ H Urine Glucose (UA) Negative Urine Ketones Negative Urine Blood 2+ H Urine Nitrite Negative Urine Bilirubin Negative Urine Urobilinogen 0.2 Ur Leukocyte Esterase 3+ H Urine WBC (Auto) 365 Urine RBC (Auto) 9 Urine Casts (Auto) 2 U Epithel Cells (Auto) 1.3 Urine Bacteria (Auto) 6152.8 ASSESSMENT/PLAN: Pt. is a 78 y.o. F w/ PMHx. 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 #Pre-Syncope Likely vaso-vagal, with component of medications (Lyrica, Lasix, Lisinopril and HCTZ) f/u orthostatic vital signs EKG: shows new TWI in leads V1 and V2 compared to November f/u Rpt. EKG for dynamic changes c/w Telemetry monitoring Echo(11/19/18): Grade 1 Diastolic Dysfunction, EF: 55-60%, pulmonary artery pressure 41 mm HG Pt. had Stress test done? f/u Cardioogy consult (Dr. Gabriel) to retrieve results f/u FOBT Head CT - BG at the time of Syncope was 151 by EMS, and 101 in ED #Positive UA UA+: 3+ LE, WBC: 365 Given Levaquin in the ED Pt. has suprapubic catheter, may be colonization as Pt. does not have fever or elevated WBCs started on Levaquin Q48H for renal dosing #Melena f/u FOBT HgB: 10.3, a little better than Pt.s baseline monitor HgB #FEN NS @ 50ml/hr monitor electrolytes an replete as needed Na+/Diabetic Diet #DVT Ppx. TEDs Hold Hep in light of reported melena Visit type - Emergency Visit Emergency Visit: Yes ED Registration Date: 02/07/19 Care time: The patient presented to the Emergency Department on the above date and was hospitalized for further evaluation of their emergent condition. - New Patient This patient is new to me today: Yes Date on this admission: 02/07/19 - Critical Care Critical Care patient: No
[2019-02-07 07:05] LABS: BASO % 0.5 % (0-2.0); EOS % 1.5 % (0-4.5); HEMATOCRIT 28.8 % (32.4-45.2); HEMOGLOBIN 9.4 GM/dL (10.7-15.3); LYMPH % 20.1 % (8-40); MCH 28.5 pg (25.7-33.7); MCHC 32.6 g/dl (32.0-36.0); MEAN CELL VOLUME 87.7 fl (80-96); MONO % 8.6 % (3.8-10.2); NEUT % 69.3 % (42.8-82.8); PLATELET COUNT 159 K/MM3 (134-434); RBC 3.28 M/mm3 (3.60-5.2); RDW 16.5 % (11.6-15.6)
[2019-02-07 07:25] LABS: ALBUMIN 2.5 g/dl (3.4-5.0); BILIRUBIN,TOTAL 0.7 mg/dL (0.2-1); BLOOD UREA NITROGEN 27.4 mg/dL (7-18); CREATININE 1.8 mg/dL (0.55-1.3); MAGNESIUM 2.3 mg/dL (1.8-2.4); PHOSPHOROUS 4.1 mg/dL (2.5-4.9); POTASSIUM 5.1 mmol/L (3.5-5.1); TOT PROT 5.8 g/dl (6.4-8.2)
--- NOTE | 2019-02-07 11:52 | PN ---
Physical Exam: SUBJECTIVE: Patient seen and examined at bedside. Endorses dark stools. OBJECTIVE: Vital Signs Period Temp Pulse Resp BP Sys/Adorno Pulse Ox Last 24 Hr 97.5 F-97.8 F 62-80 17-18 110-134/52-65 96-99 GENERAL: NAD HEAD: Normal with no signs of trauma. EYES:EOMI Sclera Clear NECK: Trachea midline, full range of motion, supple. LUNGS: Dec Bs at bases HEART: RRR S1S2 ABDOMEN: Obese, Tender to deep palpation, Urostomy in place. EXTREMITIES: 1+ pitting edema NEUROLOGICAL: Cranial nerves II through XII grossly intact. Normal speech, gait not observed. PSYCH: Normal mood, normal affect. SKIN: Warm, dry, normal turgor, no rashes or lesions noted Laboratory Results - last 24 hr 02/06/19 02/06/19 02/06/19 17:01 19:50 19:50 WBC 6.7 RBC 3.64 Hgb 10.3 L Hct 32.2 L D MCV 88.5 MCH 28.2 MCHC 31.9 L RDW 16.3 H Plt Count 176 MPV 9.4 Absolute Neuts (auto) 5.4 Neutrophils % 81.2 Lymphocytes % 11.9 D Monocytes % 5.6 Eosinophils % 0.7 D Basophils % 0.6 Nucleated RBC % 0 Sodium 142 Potassium 5.1 Chloride 109 H Carbon Dioxide 28 Anion Gap 5 L BUN 28.7 H Creatinine 1.9 H Est GFR (CKD-EPI)AfAm 28.56 Est GFR (CKD-EPI)NonAf 24.64 POC Glucometer 101 Random Glucose 122 H Calcium 8.3 L Phosphorus Magnesium Total Bilirubin 0.3 AST 17 ALT 27 Alkaline Phosphatase 182 H Troponin I < 0.02 Total Protein 6.8 Albumin 3.0 L Lipase 51 L Urine Color Urine Appearance Urine pH Ur Specific [place] Urine Protein Urine Glucose (UA) Urine Ketones Urine Blood Urine Nitrite Urine Bilirubin Urine Urobilinogen Ur Leukocyte Esterase Urine WBC (Auto) Urine RBC (Auto) Urine Casts (Auto) U Epithel Cells (Auto) Urine Bacteria (Auto) 02/06/19 02/07/19 02/07/19 19:50 02:32 05:11 WBC RBC Hgb Hct MCV MCH MCHC RDW Plt Count MPV Absolute Neuts (auto) Neutrophils % Lymphocytes % Monocytes % Eosinophils % Basophils % Nucleated RBC % Sodium Potassium Chloride Carbon Dioxide Anion Gap BUN Creatinine Est GFR (CKD-EPI)AfAm Est GFR (CKD-EPI)NonAf POC Glucometer 148 Random Glucose Calcium Phosphorus Magnesium Total Bilirubin AST ALT Alkaline Phosphatase Troponin I < 0.02 Total Protein Albumin Lipase Urine Color Yellow Urine Appearance Turbid Urine pH 5.5 Ur Specific [place] 1.012 Urine Protein 1+ H Urine Glucose (UA) Negative Urine Ketones Negative Urine Blood 2+ H Urine Nitrite Negative Urine Bilirubin Negative Urine Urobilinogen 0.2 Ur Leukocyte Esterase 3+ H Urine WBC (Auto) 365 Urine RBC (Auto) 9 Urine Casts (Auto) 2 U Epithel Cells (Auto) 1.3 Urine Bacteria (Auto) 6152.8 02/07/19 02/07/19 06:15 06:15 WBC 5.0 RBC 3.28 L Hgb 9.4 L Hct 28.8 L MCV 87.7 MCH 28.5 MCHC 32.6 RDW 16.5 H Plt Count 159 MPV 9.0 Absolute Neuts (auto) 3.5 Neutrophils % 69.3 Lymphocytes % 20.1 D Monocytes % 8.6 Eosinophils % 1.5 D Basophils % 0.5 Nucleated RBC % 0 Sodium 143 Potassium 5.1 Chloride 110 H Carbon Dioxide 29 Anion Gap 4 L BUN 27.4 H Creatinine 1.8 H Est GFR (CKD-EPI)AfAm 30.49 Est GFR (CKD-EPI)NonAf 26.31 POC Glucometer Random Glucose 167 H Calcium 8.0 L Phosphorus 4.1 Magnesium 2.3 Total Bilirubin 0.7 AST 12 L ALT 20 Alkaline Phosphatase 155 H Troponin I Total Protein 5.8 L Albumin 2.5 L Lipase Urine Color Urine Appearance Urine pH Ur Specific [place] Urine Protein Urine Glucose (UA) Urine Ketones Urine Blood Urine Nitrite Urine Bilirubin Urine Urobilinogen Ur Leukocyte Esterase Urine WBC (Auto) Urine RBC (Auto) Urine Casts (Auto) U Epithel Cells (Auto) Urine Bacteria (Auto) Active Medications Generic Name Dose Route Start Last Admin Trade Name Freq PRN Reason Stop Dose Admin Sodium Chloride 1,000 mls @ 50 mls/hr 02/07/19 02:15 02/07/19 02:40 Normal Saline - IV 02/08/19 02:08 50 mls/hr ASDIR GLORIA Administration Levofloxacin 750 mg in 150 mls @ 100 mls/hr 02/09/19 00:30 Levaquin 750 Mg Premixed Ivpb - IVPB Q48H [facility] Protocol ASSESSMENT/PLAN: Pt. is a 78 y.o. F w/ PMHx. of HTN, IDDM, Bladder Ca (s/p radical cystectomy and urostomy placement 2004), SAH(2016-residual right sided weakness and, right sided facial droop with smile), DVTs (s/p IVC Filter, not on AC), CKD, GERD, and Parkinson's Disease presents after pre-syncopal episode while on the toilet passing stool. #Pre-Syncope f/u orthostatic vital signs EKG: SR, RBBB, no sig change compared to previous c/w Telemetry monitoring Echo (11/19/18): Grade 1 Diastolic Dysfunction, EF: 55-60%, pulmonary artery pressure 41 mm HG mibi 11/2018 small to mod zone of inferolateral and lateral reversible defect c/ w mild intensity ischemia, EF 59%. Dr Gabriel on board. FOBT performed. NEGATIVE. Head CT negative for any acute bleed or pathology BG at the time of Syncope was 151 by EMS, and 101 in ED #Positive UA UA+: 3+ LE, WBC: 365 Given Levaquin in the ED. Will stop ABx as pt afebrile, no white count, no signs /symptoms of active infection. Pt. has suprapubic catheter, may be colonization as Pt. does not have fever or elevated WBCs #Melena FOBT NEGATIVE -HgB: 10.3, today 9.4 (02/07/19) -Repeat CBC in am #FEN NS @ 50ml/hr monitor electrolytes an replete as needed Na+/Diabetic Diet #DVT Ppx. TEDs Visit type - Emergency Visit Emergency Visit: Yes ED Registration Date: 02/07/19 Care time: The patient presented to the Emergency Department on the above date and was hospitalized for further evaluation of their emergent condition. - New Patient This patient is new to me today: Yes Date on this admission: 02/07/19 - Critical Care Critical Care patient: No - Discharge Referral Referred to [facility] No
--- NOTE | 2019-02-07 12:13 | CON.CARD ---
Cardiology Consult (text) - Consultation Consultation Note: Chief Complaint: presyncope History of Present Illness: 77 yo female here with presyncope. Had a BM and was standing from toilet and felt dizzy and stumbled but caught herself on handrail in bathroom and did not fall. No loc. No cp sob palps pnd orthopnea le edema. PMH: Bladder CA s/p Radical Cystectomy and urostomy 9 years ago, DVT s/p IVC Filter and on Coumadin, IDDM, HTN, GERD, Osteoarthritis pt denies h/o afib, CVA, CAD - Alcohol/Substance Use Hx Alcohol Use: No - Smoking History Smoking history: Never smoked Have you smoked in the past 12 months: No Aproximately how many cigarettes per day: 0 Home Medications - Allergies Allergies/Adverse Reactions: Allergies Allergy/AdvReac Type Severity Reaction Status Date / Time latex Allergy Verified 02/06/19 17:13 - Home Medications Home Medications Medication Instructions Recorded Multivitamins [Multivit ([facility] 1 mg PO DAILY 05/08/17 Formulary)] Omeprazole 40 mg PO BID 05/08/17 Pregabalin [Lyrica -] 50 mg PO TID 05/08/17 Calcium Carbonate/Vitamin D3 600 mg PO TID 03/15/18 [Calcium 600 + Vit D 400 Softgl] Furosemide [Lasix -] 40 mg PO DAILY PRN 11/17/18 Aspirin Coated [Ecotrin -] 81 mg PO DAILY #30 tablet.ec 11/19/18 Acetaminophen [Tylenol .Regular 650 mg PO Q6H PRN tablet 11/30/18 Strength -] Brimonidine Tartrate/Timolol 1 drop OU TID 02/06/19 [Combigan Eye Drops] Fluticasone Furoate [Arnuity 1 spray NS DAILY 02/06/19 Ellipta] Insulin Lispro Protamin/Lispro 25 unit SQ HS 02/06/19 [Humalog Mix 75-25 Kwikpen] Insulin Lispro Protamin/Lispro 30 unit SQ AM 02/06/19 [Humalog Mix 75-25 Kwikpen] Lisinopril/Hydrochlorothiazide 1 tablet PO DAILY 02/06/19 [Lisinopril-Hctz 10-12.5 mg Tab] Family Disease History - Family Disease History Family History: Denies (no cardiomyopathy) Review of Systems - Review of Systems Constitutional: denies: Chills, Fever Eyes: denies: Eye Pain HENT: denies: Nasal Congestion Neck: denies: Stiffness Cardiovascular: denies: Palpitations Respiratory: denies: Orthopnea, PND Gastrointestinal: denies: Diarrhea, Rectal Bleeding Genitourinary: reports: Hematuria. denies: Burning Musculoskeletal: denies: Muscle Pain Integumentary: denies: Rash Neurological: denies: Numbness, Seizure Endocrine: denies: Excessive Sweating Hematology/Lymphatic: denies: Excessive Bleeding Vital Signs: Vital Signs Period Temp Pulse Resp BP Sys/Adorno Pulse Ox Last 24 Hr 97.5 F-97.8 F 62-80 17-18 110-134/52-65 96-99 Constitutional: Yes: No Distress, Obese Eyes: No: Sclera Icterus HENT: No: Nasal Congestion Respiratory: Yes: CTA Bilaterally. No: Accessory Muscle Use, Rales, Wheezes Gastrointestinal: Yes: Normal Bowel Sounds. No: Distention, Hepatomegaly, Palpable Mass, Tenderness Cardiovascular: Yes: Regular Rate and Rhythm JVD: No Carotid Bruit: No PMI: Non-Displaced Heart Sounds: Yes: S1, S2. No: Gallop Murmur: No: Systolic Murmur, Diastolic Murmur Extremities: No: Cool, Cyanosis Edema: No Peripheral Pulses: 2+ Left Carotid, 2+ Right Carotid, 2+ Left Doralis Pedis, 2+ Right Dorsalis Pedis Integumentary: No: Jaundice diaphoresis Neurological: Yes: Alert, Oriented (x3) Psychiatric: No: Agitated Laboratory Last Values WBC 5.0 K/mm3 (4.0-10.0) 02/07/19 06:15 RBC 3.28 M/mm3 (3.60-5.2) L 02/07/19 06:15 Hgb 9.4 GM/dL (10.7-15.3) L 02/07/19 06:15 Hct 28.8 % (32.4-45.2) L 02/07/19 06:15 MCV 87.7 fl (80-96) 02/07/19 06:15 MCH 28.5 pg (25.7-33.7) 02/07/19 06:15 MCHC 32.6 g/dl (32.0-36.0) 02/07/19 06:15 RDW 16.5 % (11.6-15.6) H 02/07/19 06:15 Plt Count 159 K/MM3 (134-434) 02/07/19 06:15 MPV 9.0 fl (7.5-11.1) 02/07/19 06:15 Absolute Neuts (auto) 3.5 K/mm3 (1.5-8.0) 02/07/19 06:15 Neutrophils % 69.3 % (42.8-82.8) 02/07/19 06:15 Lymphocytes % 20.1 % (8-40) D 02/07/19 06:15 Monocytes % 8.6 % (3.8-10.2) 02/07/19 06:15 Eosinophils % 1.5 % (0-4.5) D 02/07/19 06:15 Basophils % 0.5 % (0-2.0) 02/07/19 06:15 Nucleated RBC % 0 % (0-0) 02/07/19 06:15 Sodium 143 mmol/L (136-145) 02/07/19 06:15 Potassium 5.1 mmol/L (3.5-5.1) 02/07/19 06:15 Chloride 110 mmol/L (98-107) H 02/07/19 06:15 Carbon Dioxide 29 mmol/L (21-32) 02/07/19 06:15 Anion Gap 4 MMOL/L (8-16) L 02/07/19 06:15 BUN 27.4 mg/dL (7-18) H 02/07/19 06:15 Creatinine 1.8 mg/dL (0.55-1.3) H 02/07/19 06:15 Est GFR (CKD-EPI)AfAm 30.49 02/07/19 06:15 Est GFR (CKD-EPI)NonAf 26.31 02/07/19 06:15 POC Glucometer 148 UNITS (80-120) 02/07/19 05:11 Random Glucose 167 mg/dL (74-106) H 02/07/19 06:15 Calcium 8.0 mg/dL (8.5-10.1) L 02/07/19 06:15 Phosphorus 4.1 mg/dL (2.5-4.9) 02/07/19 06:15 Magnesium 2.3 mg/dL (1.8-2.4) 02/07/19 06:15 Total Bilirubin 0.7 mg/dL (0.2-1) 02/07/19 06:15 AST 12 U/L (15-37) L 02/07/19 06:15 ALT 20 U/L (13-61) 02/07/19 06:15 Alkaline Phosphatase 155 U/L (45-117) H 02/07/19 06:15 Troponin I < 0.02 ng/ml (0.00-0.05) 02/07/19 02:32 Total Protein 5.8 g/dl (6.4-8.2) L 02/07/19 06:15 Albumin 2.5 g/dl (3.4-5.0) L 02/07/19 06:15 Lipase 51 U/L (73-393) L 02/06/19 19:50 Urine Color Yellow 02/06/19 19:50 Urine Appearance Turbid 02/06/19 19:50 Urine pH 5.5 (5.0-8.0) 02/06/19 19:50 Ur Specific [place] 1.012 (1.010-1.035) 02/06/19 19:50 Urine Protein 1+ (NEGATIVE) H 02/06/19 19:50 Urine Glucose (UA) Negative (NEGATIVE) 02/06/19 19:50 Urine Ketones Negative (NEGATIVE) 02/06/19 19:50 Urine Blood 2+ (NEGATIVE) H 02/06/19 19:50 Urine Nitrite Negative (NEGATIVE) 02/06/19 19:50 Urine Bilirubin Negative (NEGATIVE) 02/06/19 19:50 Urine Urobilinogen 0.2 mg/dL (0.2-1.0) 02/06/19 19:50 Ur Leukocyte Esterase 3+ (NEGATIVE) H 02/06/19 19:50 Urine WBC (Auto) 365 /hpf (0-5) 02/06/19 19:50 Urine RBC (Auto) 9 /hpf (0-4) 02/06/19 19:50 Urine Casts (Auto) 2 /lpf (0-8) 02/06/19 19:50 U Epithel Cells (Auto) 1.3 /HPF (0-5/HPF) 02/06/19 19:50 Urine Bacteria (Auto) 6152.8 /hpf (NEGATIVE) 02/06/19 19:50 ekg: SR, RBBB,no sig change vs prior echo 08/2018: nl lv/rv, mild mr cxr: clear lungs mibi 11/2018 small to mod zone of inferolateral and lateral reversible defect c/ w mild intensity ischemia, EF 59% echo 11/2018 nl LV function, EF 55-60%, grade I diastolic dysufnction, PASP at least 41 mmHg a/p: uti: -abx per ID, PMD presyncope: -no signs acs, chf, arrhythmia -check ortho vitals -recent echo unremarkable -?infection related presumed cad: -Recent mibi with mild ischemia and pt/family opted for med management, no cath. -no signs acs, trops unremarkable -no cp -cont asa, monitor for new sxs HTN: -cont home meds CKD: -currently stable renal fxn
--- NOTE | 2019-02-07 12:30 | EKG ---
Test Reason : Blood Pressure : / mmHG Vent. Rate : 064 BPM Atrial Rate : 064 BPM P-R Int : 148 ms QRS Dur : 118 ms QT Int : 450 ms P-R-T Axes : 063 -16 052 degrees QTc Int : 464 ms NORMAL SINUS RHYTHM INCOMPLETE RIGHT BUNDLE BRANCH BLOCK BORDERLINE ECG WHEN COMPARED WITH ECG OF 06-FEB-2019 17:28, NO SIGNIFICANT CHANGE WAS FOUND Confirmed by TAYLOR BELLAMY, JAYDA ([id number]) on 02/07/2019 12:29:49 PM Referred By: Confirmed By:JAYDA VAZQUEZ MD
--- NOTE | 2019-02-07 12:31 | EKG ---
Test Reason : Blood Pressure : / mmHG Vent. Rate : 086 BPM Atrial Rate : 086 BPM P-R Int : 138 ms QRS Dur : 120 ms QT Int : 394 ms P-R-T Axes : 064 -27 052 degrees QTc Int : 471 ms NORMAL SINUS RHYTHM RIGHT BUNDLE BRANCH BLOCK ABNORMAL ECG WHEN COMPARED WITH ECG OF 28-NOV-2018 06:27, NO SIGNIFICANT CHANGE WAS FOUND Confirmed by JAYDA VAZQUEZ MD ([id number]) on 02/07/2019 12:30:43 PM Referred By: Confirmed By:JAYDA VAZQUEZ MD
[2019-02-07] MEDS ORDERED: PATIENT'S OWN MEDICATION (NON-FORMULARY) (Lisinopril/Hydrochlorothiazide [Lisinopril-Hctz PO SCH (17:45)
[2019-02-07] MEDS ORDERED: PIPERACILLIN/TAZOB 2.25 GM 2.25 GM/50 ML BAG IVPB ONE (17:55)
[2019-02-07] MEDS: PIPERACILLIN/TAZOB 2.25 GM 2.25 GM in DEXTROSE 5%-WATER - 50 ML IVPB SCH ×2 (17:59→22:24)
[2019-02-07] MEDS ORDERED: PANTOPRAZOLE SODIUM 40 MG VIAL IVPUSH ONE (18:04)
--- NOTE | 2019-02-07 18:28 | PN ---
Teaching Attending Note Name of Resident: Torrey Gomez ATTENDING PHYSICIAN STATEMENT I saw and evaluated the patient. I reviewed the resident's note and discussed the case with the resident. I agree with the resident's findings and plan as documented. SUBJECTIVE: Patient has no fevr or chills, no nausea or vomiting OBJECTIVE: Vital Signs Temperature 98.9 F 02/07/19 17:59 Pulse Rate 85 02/07/19 17:59 Respiratory Rate 16 02/07/19 17:59 Blood Pressure 144/92 02/07/19 17:59 O2 Sat by Pulse Oximetry (%) 100 02/07/19 11:30 GENERAL: NAD, comfortable HEAD: Normal with no signs of trauma. EYES:EOMI Sclera Clear NECK: Trachea midline, full range of motion, supple. LUNGS: decreased BS at bases, otherwise CTA BL HEART: RRR, S1S2, MAYDA 2/6 ABDOMEN: Obese, mild tenderness to palpation, Urostomy in place. EXTREMITIES: 1+ pitting edema NEUROLOGICAL: Cranial nerves II through XII grossly intact. Normal speech. PSYCH: Normal mood, normal affect. SKIN: Warm, dry, normal turgor, no rashes noted CBCD WBC 5.0 K/mm3 (4.0-10.0) 02/07/19 06:15 RBC 3.28 M/mm3 (3.60-5.2) L 02/07/19 06:15 Hgb 9.4 GM/dL (10.7-15.3) L 02/07/19 06:15 Hct 28.8 % (32.4-45.2) L 02/07/19 06:15 MCV 87.7 fl (80-96) 02/07/19 06:15 MCHC 32.6 g/dl (32.0-36.0) 02/07/19 06:15 RDW 16.5 % (11.6-15.6) H 02/07/19 06:15 Plt Count 159 K/MM3 (134-434) 02/07/19 06:15 MPV 9.0 fl (7.5-11.1) 02/07/19 06:15 CMP Sodium 143 mmol/L (136-145) 02/07/19 06:15 Potassium 5.1 mmol/L (3.5-5.1) 02/07/19 06:15 Chloride 110 mmol/L (98-107) H 02/07/19 06:15 Carbon Dioxide 29 mmol/L (21-32) 02/07/19 06:15 Anion Gap 4 MMOL/L (8-16) L 02/07/19 06:15 BUN 27.4 mg/dL (7-18) H 02/07/19 06:15 Creatinine 1.8 mg/dL (0.55-1.3) H 02/07/19 06:15 Random Glucose 167 mg/dL (74-106) H 02/07/19 06:15 Calcium 8.0 mg/dL (8.5-10.1) L 02/07/19 06:15 Total Bilirubin 0.7 mg/dL (0.2-1) 02/07/19 06:15 AST 12 U/L (15-37) L 02/07/19 06:15 ALT 20 U/L (13-61) 02/07/19 06:15 Alkaline Phosphatase 155 U/L (45-117) H 02/07/19 06:15 Total Protein 5.8 g/dl (6.4-8.2) L 02/07/19 06:15 Albumin 2.5 g/dl (3.4-5.0) L 02/07/19 06:15 CARDIAC ENZYMES Troponin I < 0.02 ng/ml (0.00-0.05) 02/07/19 02:32 Current Medications Generic Name Dose Route Start Last Admin Trade Name Freq PRN Reason Stop Dose Admin Aspirin 81 mg 02/07/19 17:45 Ecotrin - PO DAILY [facility] Baclofen 10 mg 02/07/19 22:00 Lioresal - PO TID [facility] Brimonidine Tartrate 1 drop 02/07/19 22:00 Alphagan 0.2% - OU TID [facility] Calcium Carbonate/Cholecalciferol 1 tab 02/07/19 22:00 Os-Jay 500+D - PO BID [facility] Hydrochlorothiazide 12.5 mg 02/08/19 10:00 Hctz - PO DAILY [facility] Sodium Chloride 1,000 mls @ 50 mls/hr 02/07/19 02:15 02/07/19 02:40 Normal Saline - IV 02/08/19 02:08 50 mls/hr ASDIR [facility] Administration Levofloxacin 750 mg in 150 mls @ 100 mls/hr 02/09/19 00:30 Levaquin 750 Mg Premixed Ivpb - IVPB Q48H [facility] Protocol Piperacillin Sod/Tazobactam 50 mls @ 100 mls/hr 02/07/19 17:15 02/07/19 17:59 Sod 2.25 gm/ Dextrose IVPB 100 mls/hr Q6H-IV [facility] Administration Protocol Lisinopril 10 mg 02/08/19 10:00 Prinivil PO DAILY [facility] Multivitamins/Minerals/Vitamin C 1 tab 02/07/19 17:45 Tab-A-Vit - PO DAILY [facility] Pantoprazole Sodium 40 mg 02/07/19 22:00 Protonix - PO DAILY [facility] Pregabalin 50 mg 02/07/19 22:00 Lyrica - PO TID [facility] Ranitidine HCl 150 mg 02/07/19 22:00 Zantac - PO HS [facility] Timolol Maleate 1 drop 02/07/19 22:00 Timoptic 0.5% OU TID [facility] Home Medications Medication Instructions Recorded Multivitamins [Multivit ([facility] 1 mg PO DAILY 05/08/17 Formulary)] Omeprazole 40 mg PO BID 05/08/17 Pregabalin [Lyrica -] 50 mg PO TID 05/08/17 Calcium Carbonate/Vitamin D3 600 mg PO BID 03/15/18 [Calcium 600 + Vit D 400 Softgl] Furosemide [Lasix -] 40 mg PO DAILY 11/17/18 Aspirin Coated [Ecotrin -] 81 mg PO DAILY #30 tablet.ec 11/19/18 Acetaminophen [Tylenol .Regular 650 mg PO Q6H PRN tablet 11/30/18 Strength -] Brimonidine Tartrate/Timolol 1 drop OU TID 02/06/19 [Combigan Eye Drops] Fluticasone Furoate [Arnuity 1 spray NS DAILY 02/06/19 Ellipta] Insulin Lispro Protamin/Lispro 27 unit SQ HS 02/06/19 [Humalog Mix 75-25 Kwikpen] Insulin Lispro Protamin/Lispro 30 unit SQ AM 02/06/19 [Humalog Mix 75-25 Kwikpen] Lisinopril/Hydrochlorothiazide 1 tablet PO DAILY 02/06/19 [Lisinopril-Hctz 10-12.5 mg Tab] Baclofen 10 mg PO TID 02/07/19 Carbidopa/Levodopa 25 - 100 mg PO TID 02/07/19 [Carbidopa-Levodopa 25-100 Tab] Diclofenac Sodium [Diclo Gel] 2 - 4 grams TP BID 02/07/19 Ranitidine [Zantac -] 150 mg PO HS 02/07/19 FOBT: negative EKG: SR, RBBB, no sig change compared to previous Echo (11/19/18): Grade 1 Diastolic Dysfunction, EF: 55-60%, pulmonary artery pressure 41 mm HG mibi 11/2018 small to mod zone of inferolateral and lateral reversible defect c/ w mild intensity ischemia, EF 59% Head CT negative for any acute bleed or pathology ASSESSMENT AND PLAN: Pt. is a 78 y.o. 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 #Pre-Syncope: tele ,monitoring . orthostatic vital signs # UTI: patient has suprapubic catheter, with possible colonization, as per ID to keep the patient on Zosyn and Levaquin since presented with a similar issues last admission . # Anemia ; HgB: 10.3, will monitor , repeat cbc #DVT Ppx. TEDs will monitor
[2019-02-07] MEDS: ACETAMINOPHEN 325 MG TABLET (FP) PO PRN (19:51)
--- NOTE | 2019-02-07 21:05 | CONS ---
DATE OF CONSULTATION: 02/07/2019 The patient is a 78-year-old female well known to me because of a history of invasive bladder cancer in 2004. The patient underwent a radical cystectomy with ileal conduit. She has had an ileal conduit for the past 14 years. She also has a history of high blood pressure as well as diabetes. She has a history of GERD as well as Parkinson disease. The patient is admitted via the emergency room with a pre-syncopal episode while on the toilet. She states that she felt fatigued and lightheaded and developed an acute episode of black, watery diarrhea. The patient also states that she has had a loss of appetite and has had an unintentional 20-pound weight loss over the past six months. She denies any fever, chills or chest pain. PAST SURGICAL HISTORY: 1. Left knee replacement. 2. Cataract surgery. 3. Tubal ligation. SOCIAL HISTORY: She denies any history of ethanol or tobacco use. MEDICATIONS: The patient is on multiple medications including a PPI, vitamins, Lasix, insulin for her diabetes and lisinopril for her high blood pressure. A scan of the head in the emergency room revealed no evidence of acute intracranial pathology. There have been no definitive interval changes in comparison to prior CT scan of November 29, 2018. The patient had urine cultures which are still pending. Her white count is presently 5000. Hemoglobin and hematocrit are 9.4/28.8. Her platelets were 159. Her BUN and creatinine are 27/1.8. Random glucose is 167. The patient did have an ultrasound earlier this year and this revealed bilateral mild hydroureteronephrosis. This is common in patients with ileal conduits. PLAN: We will recommend repeating the ultrasound to see if there is any progression. We will follow with you. RAGHU HERRERA M.D. [id number]
[2019-02-07] MEDS ORDERED: PATIENT'S OWN MEDICATION (NON-FORMULARY) (Brimonidine Tartrate/Timolol [Combigan 0.2%-0.5% OU SCH (22:00)
[2019-02-07] MEDS ORDERED: PIPERACILLIN/TAZOBACTAM 2.25 GM VIAL IVPB ONE (22:02)
[2019-02-07] MEDS ORDERED: PT OWN MED DRAWER 7, Y5N ONE (22:02)
[2019-02-07] MEDS ORDERED: DEXTROSE 5%-WATER - 50 ML IVPB ONE (22:03)
[2019-02-07] MEDS: PREGABALIN 50 MG CAPSULE PO SCH (22:24)
[2019-02-07] MEDS: PANTOPRAZOLE 40 MG TABLET (FP) PO SCH (22:24)
[2019-02-07] MEDS: CALCIUM 500MG/VIT-D 200 UNITS COMBO TABLET (FP) PO SCH (22:24)
[2019-02-07] MEDS: RANITIDINE HCL 150 MG TABLET (FP) PO SCH (22:24)
[2019-02-07] MEDS: BACLOFEN 10 MG TABLET (FP) PO SCH (23:30)
[2019-02-07] MEDS: TIMOLOL 0.5% OPHTHALMIC SOL 5 ML BOTTLE OU SCH (23:33)
[2019-02-07] MEDS: BRIMONIDINE TARTRATE 0.2% OPHTHALMIC 5 ML BOTTLE OU SCH (23:33)
[2019-02-08] MEDS ORDERED: DEXTROSE 5%-WATER - 50 ML IVPB ONE ×4 (01:39→20:53)
[2019-02-08] MEDS ORDERED: PIPERACILLIN/TAZOBACTAM 2.25 GM VIAL IVPB ONE ×4 (01:39→20:52)
[2019-02-08] MEDS: PIPERACILLIN/TAZOB 2.25 GM 2.25 GM in DEXTROSE 5%-WATER - 50 ML IVPB SCH ×4 (02:04→20:58)
[2019-02-08] MEDS: PREGABALIN 50 MG CAPSULE PO SCH ×3 (05:47→21:00)
[2019-02-08] MEDS: TIMOLOL 0.5% OPHTHALMIC SOL 5 ML BOTTLE OU SCH ×3 (05:48→21:00)
[2019-02-08] MEDS: BACLOFEN 10 MG TABLET (FP) PO SCH ×3 (05:48→21:05)
[2019-02-08] MEDS: BRIMONIDINE TARTRATE 0.2% OPHTHALMIC 5 ML BOTTLE OU SCH ×3 (05:48→21:05)
[2019-02-08 06:16] LABS: HEMATOCRIT 29.9 % (32.4-45.2); HEMOGLOBIN 9.6 GM/dL (10.7-15.3); MCH 28.4 pg (25.7-33.7); MCHC 32.1 g/dl (32.0-36.0); MEAN CELL VOLUME 88.3 fl (80-96); MEAN PLT VOLUME 9.3 fl (7.5-11.1); PLATELET COUNT 164 K/MM3 (134-434); RBC 3.39 M/mm3 (3.60-5.2); WHITE BLOOD COUNT 4.8 K/mm3 (4.0-10.0)
[2019-02-08 06:48] LABS: BLOOD UREA NITROGEN 21.4 mg/dL (7-18); CALCIUM 8.2 mg/dL (8.5-10.1); CREATININE 1.7 mg/dL (0.55-1.3); PHOSPHOROUS 3.6 mg/dL (2.5-4.9); POTASSIUM 4.8 mmol/L (3.5-5.1)
[2019-02-08] MEDS: INSULIN SLIDING SCALE (NOVOLOG) 1 VIAL SQ SCH ×4 (07:31→21:01)
[2019-02-08] MEDS: MULTIVITAMINS (DAILY MVI) TABLET (FP) PO SCH ×2 (08:05→09:11)
[2019-02-08] MEDS: ASPIRIN COATED 81 MG TABLET.EC PO SCH ×2 (08:05→09:11)
[2019-02-08] MEDS ORDERED: SODIUM CHLORIDE 500 ML IV STA (08:28)
[2019-02-08] MEDS: PANTOPRAZOLE 40 MG TABLET (FP) PO SCH (09:10)
[2019-02-08] MEDS: CALCIUM 500MG/VIT-D 200 UNITS COMBO TABLET (FP) PO SCH ×2 (09:12→21:06)
[2019-02-08] MEDS: LISINOPRIL 10 MG TABLET (FP) PO SCH (09:12)
--- NOTE | 2019-02-08 09:18 | PN ---
Progress Note, Physician Chief Complaint: sitting in chair, no acute distress TELE: Sinus mono in 50s - Current Medication List Current Medications: Active Medications Acetaminophen (Tylenol -) 650 mg PO Q6H PRN PRN Reason: Fever Or Pain Last Admin: 02/07/19 19:51 Dose: 650 mg Aspirin (Ecotrin -) 81 mg PO DAILY [facility] Last Admin: 02/08/19 09:11 Dose: 81 mg Baclofen (Lioresal -) 10 mg PO TID [facility] Last Admin: 02/08/19 05:48 Dose: 10 mg Brimonidine Tartrate (Alphagan 0.2% -) 1 drop OU TID [facility] Last Admin: 02/08/19 05:48 Dose: 1 drop Calcium Carbonate/Cholecalciferol (Os-Jay 500+D -) 1 tab PO BID [facility] Last Admin: 02/08/19 09:12 Dose: 1 tab Hydrochlorothiazide (Hctz -) 12.5 mg PO DAILY [facility] Last Admin: 02/08/19 09:12 Dose: 12.5 mg Levofloxacin (Levaquin 750 Mg Premixed Ivpb -) 750 mg in 150 mls @ 100 mls/hr IVPB Q48H [facility]; Protocol Piperacillin Sod/Tazobactam (Sod 2.25 gm/ Dextrose) 50 mls @ 100 mls/hr IVPB Q6H-IV [facility]; Protocol Last Admin: 02/08/19 09:08 Dose: 100 mls/hr Sodium Chloride (Normal Saline -) 500 mls @ 500 mls/hr IV ASDIR STA Stop: 02/08/19 09:27 Last Admin: 02/08/19 09:05 Dose: 500 mls/hr Insulin Aspart (Novolog Vial Sliding Scale -) 1 vial SQ ACHS [facility]; Protocol Last Admin: 02/08/19 07:31 Dose: 2 units Lisinopril (Prinivil) 10 mg PO DAILY [facility] Last Admin: 02/08/19 09:12 Dose: 10 mg Multivitamins/Minerals/Vitamin C (Tab-A-Vit -) 1 tab PO DAILY [facility] Last Admin: 02/08/19 09:11 Dose: 1 tab Pantoprazole Sodium (Protonix -) 40 mg PO DAILY [facility] Last Admin: 02/08/19 09:10 Dose: 40 mg Pregabalin (Lyrica -) 50 mg PO TID [facility] Last Admin: 02/08/19 05:47 Dose: 50 mg Ranitidine HCl (Zantac -) 150 mg PO HS [facility] Last Admin: 02/07/19 22:24 Dose: 150 mg Timolol Maleate (Timoptic 0.5%) 1 drop OU TID [facility] Last Admin: 02/08/19 05:48 Dose: 1 drop - Objective Vital Signs: Vital Signs Temperature 97.5 F L 02/08/19 09:15 Pulse Rate 57 L 02/08/19 09:15 Respiratory Rate 02/08/19 09:15 Blood Pressure 116/49 L 02/08/19 09:15 O2 Sat by Pulse Oximetry (%) 95 02/07/19 20:00 Constitutional: Yes: No Distress, Calm Cardiovascular: Yes: Regular Rate and Rhythm Respiratory: Yes: CTA Bilaterally Gastrointestinal: Yes: Soft Edema: No Neurological: Yes: Alert, Oriented Labs: CBC, BMP 02/08/19 05:15 02/08/19 05:15 - ....Imaging EKG: Image Reviewed Assessment/Plan ekg: SR, RBBB,no sig change vs prior echo 08/2018: nl lv/rv, mild mr cxr: clear lungs mibi 11/2018 small to mod zone of inferolateral and lateral reversible defect c/ w mild intensity ischemia, EF 59% echo 11/2018 nl LV function, EF 55-60%, grade I diastolic dysufnction, PASP at least 41 mmHg Assessment and Plan: UTI: -abx per ID, PMD Presyncope: -no signs acs, chf, arrhythmia to cause symptoms. -check ortho vitals -recent echo unremarkable -?infection related Presumed cad: -Recent mibi with mild ischemia and pt/family opted for med management, no cath. -no signs acs, trops unremarkable -no cp -cont asa, monitor for new sxs HTN: -cont home meds CKD: -currently stable renal fxn
[2019-02-08] MEDS ORDERED: HYDROCHLOROTHIAZIDE 12.5 MG CAPSULE (FP) PO SCH (10:00)
--- NOTE | 2019-02-08 12:42 | PN ---
Physical Exam: SUBJECTIVE: Patient seen and examined at bedside. No acute events overnight. Denies abdominal pain or lightheadedness. OBJECTIVE: Vital Signs Period Temp Pulse Resp BP Sys/Adorno Pulse Ox Last 24 Hr 97.5 F-98.9 F 57-85 16-20 104-144/42-92 94-100 GENERAL: No acute distress HEAD: Normal with no signs of trauma. EYES:EOMI Sclera Clear LUNGS: Dec BS at bases HEART: RRR S1S2 ABDOMEN: Obese, Tender to deep palpation, Urostomy in place, stoma pink. EXTREMITIES: 1+ pitting edema PSYCH: Normal mood, normal affect. SKIN: Warm, dry, normal turgor, no rashes or lesions noted Laboratory Results - last 24 hr 02/07/19 02/07/19 02/08/19 14:19 22:23 05:15 WBC 4.8 RBC 3.39 L Hgb 9.6 L Hct 29.9 L MCV 88.3 MCH 28.4 MCHC 32.1 RDW 16.0 H Plt Count 164 MPV 9.3 Sodium Potassium Chloride Carbon Dioxide Anion Gap BUN Creatinine Est GFR (CKD-EPI)AfAm Est GFR (CKD-EPI)NonAf POC Glucometer 271 Random Glucose Calcium Phosphorus Magnesium Stool Occult Blood Negative 02/08/19 02/08/19 02/08/19 05:15 05:32 11:47 WBC RBC Hgb Hct MCV MCH MCHC RDW Plt Count MPV Sodium 143 Potassium 4.8 Chloride 111 H Carbon Dioxide 28 Anion Gap 5 L BUN 21.4 H Creatinine 1.7 H Est GFR (CKD-EPI)AfAm 32.67 Est GFR (CKD-EPI)NonAf 28.19 POC Glucometer 175 182 Random Glucose 177 H Calcium 8.2 L Phosphorus 3.6 Magnesium 2.0 Stool Occult Blood Active Medications Generic Name Dose Route Start Last Admin Trade Name Freq PRN Reason Stop Dose Admin Acetaminophen 650 mg 02/07/19 19:31 02/07/19 19:51 Tylenol - PO 650 mg Q6H PRN Administration Fever Or Pain Aspirin 81 mg 02/07/19 17:45 02/08/19 09:11 Ecotrin - PO 81 mg DAILY [facility] Administration Baclofen 10 mg 02/07/19 22:00 02/08/19 05:48 Lioresal - PO 10 mg TID [facility] Administration Brimonidine Tartrate 1 drop 02/07/19 22:00 02/08/19 05:48 Alphagan 0.2% - OU 1 drop TID [facility] Administration Calcium Carbonate/Cholecalciferol 1 tab 02/07/19 22:00 02/08/19 09:12 Os-Jay 500+D - PO 1 tab BID [facility] Administration Piperacillin Sod/Tazobactam 50 mls @ 100 mls/hr 02/07/19 17:15 02/08/19 09:08 Sod 2.25 gm/ Dextrose IVPB 100 mls/hr Q6H-IV [facility] Administration Protocol Insulin Aspart 1 vial 02/08/19 07:00 02/08/19 11:50 Novolog Vial Sliding Scale - SQ 2 units ACHS [facility] Administration Protocol Lisinopril 10 mg 02/08/19 10:00 02/08/19 09:12 Prinivil PO 10 mg DAILY [facility] Administration Multivitamins/Minerals/Vitamin C 1 tab 02/07/19 17:45 02/08/19 09:11 Tab-A-Vit - PO 1 tab DAILY [facility] Administration Pantoprazole Sodium 40 mg 02/07/19 22:00 02/08/19 09:10 Protonix - PO 40 mg DAILY [facility] Administration Pregabalin 50 mg 02/07/19 22:00 02/08/19 05:47 Lyrica - PO 50 mg TID [facility] Administration Ranitidine HCl 150 mg 02/07/19 22:00 02/07/19 22:24 Zantac - PO 150 mg HS [facility] Administration Timolol Maleate 1 drop 02/07/19 22:00 02/08/19 05:48 Timoptic 0.5% OU 1 drop TID [facility] Administration ASSESSMENT/PLAN: Pt. is a 78 y.o. F w/ PMHx. 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 #Pre-Syncope Orthostatic vital signs -----> Standing BP 84/49. Supine---> 126/ 63. HCTZ Held. EKG: SR, RBBB, no sig change compared to previous c/w Telemetry monitoring Echo (11/19/18): Grade 1 Diastolic Dysfunction, EF: 55-60%, pulmonary artery pressure 41 mm HG mibi 11/2018 small to mod zone of inferolateral and lateral reversible defect c/ w mild intensity ischemia, EF 59%. Dr Gabriel on board. FOBT performed. NEGATIVE. Head CT negative for any acute bleed or pathology BG at the time of Syncope was 151 by EMS, and 101 in ED #Positive UA UA+: 3+ LE, WBC: 365 Given Levaquin in the ED. Will stop ABx as pt afebrile, no white count, no signs /symptoms of active infection. -Urology on board. Renal/Pelvic Sono pending. -id n board---> started patient on Zosyn today 02/08/2019 #Melena FOBT NEGATIVE -HgB: 10.3, today 9.6 (02/08/19) -Repeat CBC in am #FEN NS @ 50ml/hr monitor electrolytes an replete as needed Na+/Diabetic Diet #DVT Ppx. TEDs Visit type - Emergency Visit Emergency Visit: Yes ED Registration Date: 02/07/19 Care time: The patient presented to the Emergency Department on the above date and was hospitalized for further evaluation of their emergent condition. - New Patient This patient is new to me today: No - Critical Care Critical Care patient: No - Discharge Referral Referred to [facility] Med P.C.: No
[2019-02-08] MEDS ORDERED: PT OWN MED DRAWER 7, Y5N ONE ×2 (14:08→20:52)
--- NOTE | 2019-02-08 15:27 | CON.ID ---
Consult Consult Specialty:: infectious diseases Referred by:: hospitalist Reason for Consultation:: abd pain,weakness - History of Present Illness Chief Complaint: abd pain History of Present Illness: Pt. is a 78 y.o. F w/ PMHx. 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 Pt. states that she never lost consciousness and was helped up by her son to the couch where she continued to feel tired and lightheaded. Pt. stated that her lightheadedness increased upon standing. Pt. states that she had one episode of diarrhea of black stool. Pt. endorses having a burning epigastric pain. Pt. endorses decreased appetite for the last year and a loss of 20 pounds over the last 6 months. Pt. denies any dysuria, fever, chills, chest pain, shortness of breath or hematochezia. patient known to me from previous admission - History Source History Provided By: Patient Limitations to Obtaining History: No Limitations - Past Medical History Cardio/Vascular: Yes: AFIB, HTN Gastrointestinal: Yes: GERD Hepatobiliary: Yes: Cholecystitis Renal/: Yes: Cancer (Bladder cancer) Musculoskeletal: Yes: Osteoarthritis - Past Surgical History Past Surgical History: Yes: Cholecystectomy (open), Ileal Conduit, Joint Replacement (R knee) - Alcohol/Substance Use Hx Alcohol Use: No History of Substance Use: reports: None - Smoking History Smoking history: Never smoked Have you smoked in the past 12 months: No Aproximately how many cigarettes per day: 0 Home Medications - Allergies Allergies/Adverse Reactions: Allergies Allergy/AdvReac Type Severity Reaction Status Date / Time latex Allergy Verified 02/06/19 17:13 - Home Medications Home Medications: Ambulatory Orders Multivitamins [Multivit ([facility] Formulary)] 1 mg PO DAILY 05/08/17 Omeprazole 40 mg PO BID 05/08/17 Pregabalin [Lyrica -] 50 mg PO TID 05/08/17 Calcium Carbonate/Vitamin D3 [Calcium 600 + Vit D 400 Softgl] 600 mg PO BID Furosemide [Lasix -] 40 mg PO DAILY 11/17/18 Aspirin Coated [Ecotrin -] 81 mg PO DAILY #30 tablet.ec 11/19/18 Acetaminophen [Tylenol .Regular Strength -] 650 mg PO Q6H PRN tablet 11/30/18 Brimonidine Tartrate/Timolol [Combigan Eye Drops] 1 drop OU TID 02/06/19 Fluticasone Furoate [Arnuity Ellipta] 1 spray NS DAILY 02/06/19 Insulin Lispro Protamin/Lispro [Humalog Mix 75-25 Kwikpen] 27 unit SQ HS Insulin Lispro Protamin/Lispro [Humalog Mix 75-25 Kwikpen] 30 unit SQ AM Lisinopril/Hydrochlorothiazide [Lisinopril-Hctz 10-12.5 mg Tab] 1 tablet PO DAILY 02/06/19 Baclofen 10 mg PO TID 02/07/19 Carbidopa/Levodopa [Carbidopa-Levodopa 25-100 Tab] 25 - 100 mg PO TID 02/07/19 Diclofenac Sodium [Diclo Gel] 2 - 4 grams TP BID 02/07/19 Ranitidine [Zantac -] 150 mg PO HS 02/07/19 Review of Systems - Review of Systems Constitutional: reports: Weakness Eyes: reports: No Symptoms HENT: reports: No Symptoms Neck: reports: No Symptoms Cardiovascular: reports: No Symptoms Respiratory: reports: No Symptoms Gastrointestinal: reports: Abdominal Pain, Other Genitourinary: reports: Dysuria Musculoskeletal: reports: No Symptoms Integumentary: reports: No Symptoms Neurological: reports: No Symptoms Endocrine: reports: No Symptoms Hematology/Lymphatic: reports: No Symptoms Psychiatric: reports: No Symptoms Physical Exam Vital Signs: Vital Signs Temperature 97.8 F 02/08/19 14:10 Pulse Rate 73 02/08/19 14:10 Respiratory Rate 18 02/08/19 14:10 Blood Pressure 127/61 02/08/19 14:10 O2 Sat by Pulse Oximetry (%) 94 L 02/08/19 09:17 Constitutional: Yes: Moderate Distress, Obese Eyes: Yes: Conjunctiva Clear Cardiovascular: Yes: Regular Rate and Rhythm Respiratory: Yes: Regular, CTA Bilaterally Gastrointestinal: Yes: Hypoactive Bowel Sounds, Tenderness, Other (umbilical hernia tender) Musculoskeletal: Yes: WNL Extremities: Yes: WNL Neurological: Yes: Alert, Oriented Psychiatric: Yes: Alert, Oriented Labs: CBC, BMP 02/08/19 05:15 02/08/19 05:15 Imaging - Results Chest X-ray: Report Reviewed, Image Reviewed Cat Scan: Report Reviewed, Image Reviewed Assessment/Plan 78 y.o. F w/ PMHx. 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 Pre-Syncope uti r/o thelma abd pain plan await for identification of organism will start on zosyn monitor abd pain if increases do imaging studies rest as per the team
--- NOTE | 2019-02-08 15:33 | PN ---
Progress Note, Physician History of Present Illness: patient feels much better no new issues abd pain much better - Current Medication List Current Medications: Active Medications Acetaminophen (Tylenol -) 650 mg PO Q6H PRN PRN Reason: Fever Or Pain Last Admin: 02/07/19 19:51 Dose: 650 mg Aspirin (Ecotrin -) 81 mg PO DAILY [facility] Last Admin: 02/08/19 09:11 Dose: 81 mg Baclofen (Lioresal -) 10 mg PO TID [facility] Last Admin: 02/08/19 14:25 Dose: 10 mg Brimonidine Tartrate (Alphagan 0.2% -) 1 drop OU TID [facility] Last Admin: 02/08/19 14:26 Dose: 1 drop Calcium Carbonate/Cholecalciferol (Os-Jay 500+D -) 1 tab PO BID [facility] Last Admin: 02/08/19 09:12 Dose: 1 tab Piperacillin Sod/Tazobactam (Sod 2.25 gm/ Dextrose) 50 mls @ 100 mls/hr IVPB Q6H-IV [facility]; Protocol Last Admin: 02/08/19 14:22 Dose: 100 mls/hr Insulin Aspart (Novolog Vial Sliding Scale -) 1 vial SQ ACHS [facility]; Protocol Last Admin: 02/08/19 11:50 Dose: 2 units Lisinopril (Prinivil) 10 mg PO DAILY [facility] Last Admin: 02/08/19 09:12 Dose: 10 mg Multivitamins/Minerals/Vitamin C (Tab-A-Vit -) 1 tab PO DAILY [facility] Last Admin: 02/08/19 09:11 Dose: 1 tab Pantoprazole Sodium (Protonix -) 40 mg PO DAILY [facility] Last Admin: 02/08/19 09:10 Dose: 40 mg Pregabalin (Lyrica -) 50 mg PO TID [facility] Last Admin: 02/08/19 14:25 Dose: 50 mg Ranitidine HCl (Zantac -) 150 mg PO HS [facility] Last Admin: 02/07/19 22:24 Dose: 150 mg Timolol Maleate (Timoptic 0.5%) 1 drop OU TID [facility] Last Admin: 02/08/19 14:26 Dose: 1 drop - Objective Vital Signs: Vital Signs Temperature 97.8 F 02/08/19 14:10 Pulse Rate 73 02/08/19 14:10 Respiratory Rate 18 02/08/19 14:10 Blood Pressure 127/61 02/08/19 14:10 O2 Sat by Pulse Oximetry (%) 94 L 02/08/19 09:17 Constitutional: Yes: No Distress, Calm Cardiovascular: Yes: S1, S2 Respiratory: Yes: Regular, CTA Bilaterally Gastrointestinal: Yes: Soft, Tenderness (improving) Musculoskeletal: Yes: WNL Extremities: Yes: WNL Neurological: Yes: Alert, Oriented Psychiatric: Yes: Alert, Oriented Labs: CBC, BMP 02/08/19 05:15 02/08/19 05:15 Assessment/Plan 78 y.o. F w/ PMHx. 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 Pre-Syncope uti r/o thelma abd pain plan await for identification of organism continue abx monitor rest as per the team
--- NOTE | 2019-02-08 19:49 | PN ---
Teaching Attending Note Name of Resident: Torrey Gomez ATTENDING PHYSICIAN STATEMENT I saw and evaluated the patient. I reviewed the resident's note and discussed the case with the resident. I agree with the resident's findings and plan as documented. SUBJECTIVE: Patient is feeling better , no fever or chills, no shortness of breath. OBJECTIVE: Vital Signs Temperature 97.4 F L 02/08/19 18:10 Pulse Rate 67 02/08/19 18:10 Respiratory Rate 18 02/08/19 18:10 Blood Pressure 140/57 L 02/08/19 18:10 O2 Sat by Pulse Oximetry (%) 94 L 02/08/19 09:17 GENERAL: NAD, comfortable HEAD: Normal with no signs of trauma. EYES:EOMI Sclera Clear NECK: Trachea midline, full range of motion, supple. LUNGS: decreased BS at bases, CTA BL HEART: RRR, S1S2, MAYDA 2/6 ABDOMEN: Obese, NT to palpation, Urostomy in place. EXTREMITIES: 1+ pitting edema NEUROLOGICAL: Cranial nerves II through XII grossly intact. Normal speech. PSYCH: Normal mood, normal affect. SKIN: Warm, dry, normal turgor, no rashes noted CBCD WBC 4.8 K/mm3 (4.0-10.0) 02/08/19 05:15 RBC 3.39 M/mm3 (3.60-5.2) L 02/08/19 05:15 Hgb 9.6 GM/dL (10.7-15.3) L 02/08/19 05:15 Hct 29.9 % (32.4-45.2) L 02/08/19 05:15 MCV 88.3 fl (80-96) 02/08/19 05:15 MCHC 32.1 g/dl (32.0-36.0) 02/08/19 05:15 RDW 16.0 % (11.6-15.6) H 02/08/19 05:15 Plt Count 164 K/MM3 (134-434) 02/08/19 05:15 MPV 9.3 fl (7.5-11.1) 02/08/19 05:15 CMP Sodium 143 mmol/L (136-145) 02/08/19 05:15 Potassium 4.8 mmol/L (3.5-5.1) 02/08/19 05:15 Chloride 111 mmol/L (98-107) H 02/08/19 05:15 Carbon Dioxide 28 mmol/L (21-32) 02/08/19 05:15 Anion Gap 5 MMOL/L (8-16) L 02/08/19 05:15 BUN 21.4 mg/dL (7-18) H 02/08/19 05:15 Creatinine 1.7 mg/dL (0.55-1.3) H 02/08/19 05:15 Random Glucose 177 mg/dL (74-106) H 02/08/19 05:15 Calcium 8.2 mg/dL (8.5-10.1) L 02/08/19 05:15 Total Bilirubin 0.7 mg/dL (0.2-1) 02/07/19 06:15 AST 12 U/L (15-37) L 02/07/19 06:15 ALT 20 U/L (13-61) 02/07/19 06:15 Alkaline Phosphatase 155 U/L (45-117) H 02/07/19 06:15 Total Protein 5.8 g/dl (6.4-8.2) L 02/07/19 06:15 Albumin 2.5 g/dl (3.4-5.0) L 02/07/19 06:15 CARDIAC ENZYMES Troponin I < 0.02 ng/ml (0.00-0.05) 02/07/19 02:32 Current Medications Generic Name Dose Route Start Last Admin Trade Name Freq PRN Reason Stop Dose Admin Acetaminophen 650 mg 02/07/19 19:31 02/07/19 19:51 Tylenol - PO 650 mg Q6H PRN Administration Fever Or Pain Aspirin 81 mg 02/07/19 17:45 02/08/19 09:11 Ecotrin - PO 81 mg DAILY [facility] Administration Baclofen 10 mg 02/07/19 22:00 02/08/19 14:25 Lioresal - PO 10 mg TID [facility] Administration Brimonidine Tartrate 1 drop 02/07/19 22:00 02/08/19 14:26 Alphagan 0.2% - OU 1 drop TID [facility] Administration Calcium Carbonate/Cholecalciferol 1 tab 02/07/19 22:00 02/08/19 09:12 Os-Jay 500+D - PO 1 tab BID [facility] Administration Piperacillin Sod/Tazobactam 50 mls @ 100 mls/hr 02/07/19 17:15 02/08/19 14:22 Sod 2.25 gm/ Dextrose IVPB 100 mls/hr Q6H-IV [facility] Administration Protocol Insulin Aspart 1 vial 02/08/19 07:00 02/08/19 17:38 Novolog Vial Sliding Scale - SQ 2 units ACHS [facility] Administration Protocol Lisinopril 10 mg 02/08/19 10:00 02/08/19 09:12 Prinivil PO 10 mg DAILY [facility] Administration Multivitamins/Minerals/Vitamin C 1 tab 02/07/19 17:45 02/08/19 09:11 Tab-A-Vit - PO 1 tab DAILY [facility] Administration Pantoprazole Sodium 40 mg 02/07/19 22:00 02/08/19 09:10 Protonix - PO 40 mg DAILY [facility] Administration Pregabalin 50 mg 02/07/19 22:00 02/08/19 14:25 Lyrica - PO 50 mg TID [facility] Administration Ranitidine HCl 150 mg 02/07/19 22:00 02/07/19 22:24 Zantac - PO 150 mg HS [facility] Administration Timolol Maleate 1 drop 02/07/19 22:00 02/08/19 14:26 Timoptic 0.5% OU 1 drop TID [facility] Administration Home Medications Medication Instructions Recorded Multivitamins [Multivit ([facility] 1 mg PO DAILY 05/08/17 Formulary)] Omeprazole 40 mg PO BID 05/08/17 Pregabalin [Lyrica -] 50 mg PO TID 05/08/17 Calcium Carbonate/Vitamin D3 600 mg PO BID 03/15/18 [Calcium 600 + Vit D 400 Softgl] Furosemide [Lasix -] 40 mg PO DAILY 11/17/18 Aspirin Coated [Ecotrin -] 81 mg PO DAILY #30 tablet.ec 11/19/18 Acetaminophen [Tylenol .Regular 650 mg PO Q6H PRN tablet 11/30/18 Strength -] Brimonidine Tartrate/Timolol 1 drop OU TID 02/06/19 [Combigan Eye Drops] Fluticasone Furoate [Arnuity 1 spray NS DAILY 02/06/19 Ellipta] Insulin Lispro Protamin/Lispro 27 unit SQ HS 02/06/19 [Humalog Mix 75-25 Kwikpen] Insulin Lispro Protamin/Lispro 30 unit SQ AM 02/06/19 [Humalog Mix 75-25 Kwikpen] Lisinopril/Hydrochlorothiazide 1 tablet PO DAILY 02/06/19 [Lisinopril-Hctz 10-12.5 mg Tab] Baclofen 10 mg PO TID 02/07/19 Carbidopa/Levodopa 25 - 100 mg PO TID 02/07/19 [Carbidopa-Levodopa 25-100 Tab] Diclofenac Sodium [Diclo Gel] 2 - 4 grams TP BID 02/07/19 Ranitidine [Zantac -] 150 mg PO HS 02/07/19 Microbiology Microbiology 02/06/19 19:50 Urine - Urine Suprapubic Urine Culture - Preliminary Escherichia Coli #2 is pending FOBT: negative EKG: SR, RBBB, no sig change compared to previous Echo (11/19/18): Grade 1 Diastolic Dysfunction, EF: 55-60%, pulmonary artery pressure 41 mm HG mibi 11/2018 small to mod zone of inferolateral and lateral reversible defect c/ w mild intensity ischemia, EF 59% Head CT negative for any acute bleed or pathology ASSESSMENT AND PLAN: Patient is a 78 y.o. 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 #Pre-Syncope: tele.monitoring . orthostatic vital signs # Acute UTI: due to E.coli but sensitivity is pending ,patient has suprapubic catheter, as per ID to keep the patient on Zosyn, will discontinue levaquin. # Anemia ; HgB: 10.3-->9.6 today, will monitor , repeat cbc #DVT Ppx. TEDs
[2019-02-08] MEDS: ACETAMINOPHEN 325 MG TABLET (FP) PO PRN (20:57)
[2019-02-08] MEDS: RANITIDINE HCL 150 MG TABLET (FP) PO SCH (21:00)
[2019-02-09] MEDS ORDERED: PIPERACILLIN/TAZOBACTAM 2.25 GM VIAL IVPB ONE ×4 (01:45→21:35)
[2019-02-09] MEDS ORDERED: DEXTROSE 5%-WATER - 50 ML IVPB ONE ×4 (01:45→21:35)
[2019-02-09] MEDS: PIPERACILLIN/TAZOB 2.25 GM 2.25 GM in DEXTROSE 5%-WATER - 50 ML IVPB SCH ×4 (02:14→21:50)
[2019-02-09] MEDS ORDERED: PT OWN MED DRAWER 7, Y5N ONE ×3 (05:57→13:52)
[2019-02-09] MEDS: BACLOFEN 10 MG TABLET (FP) PO SCH ×3 (06:01→21:51)
[2019-02-09] MEDS: PREGABALIN 50 MG CAPSULE PO SCH ×3 (06:01→21:50)
[2019-02-09] MEDS: BRIMONIDINE TARTRATE 0.2% OPHTHALMIC 5 ML BOTTLE OU SCH ×3 (06:01→22:00)
[2019-02-09] MEDS: TIMOLOL 0.5% OPHTHALMIC SOL 5 ML BOTTLE OU SCH ×3 (06:01→21:53)
[2019-02-09] MEDS: INSULIN SLIDING SCALE (NOVOLOG) 1 VIAL SQ SCH ×4 (07:05→21:57)
[2019-02-09 07:32] LABS: HEMATOCRIT 31.8 % (32.4-45.2); HEMOGLOBIN 10.1 GM/dL (10.7-15.3); MCH 28.1 pg (25.7-33.7); MCHC 31.7 g/dl (32.0-36.0); MEAN CELL VOLUME 88.5 fl (80-96); MEAN PLT VOLUME 9.4 fl (7.5-11.1); PLATELET COUNT 185 K/MM3 (134-434); RBC 3.59 M/mm3 (3.60-5.2); RDW 16.1 % (11.6-15.6); WHITE BLOOD COUNT 4.2 K/mm3 (4.0-10.0)
[2019-02-09 08:01] LABS: BLOOD UREA NITROGEN 19.6 mg/dL (7-18); CALCIUM 8.3 mg/dL (8.5-10.1); CREATININE 1.8 mg/dL (0.55-1.3); MAGNESIUM 2.2 mg/dL (1.8-2.4); PHOSPHOROUS 4.2 mg/dL (2.5-4.9); POTASSIUM 4.4 mmol/L (3.5-5.1)
[2019-02-09] MEDS: LISINOPRIL 10 MG TABLET (FP) PO SCH (09:18)
[2019-02-09] MEDS: CALCIUM 500MG/VIT-D 200 UNITS COMBO TABLET (FP) PO SCH ×2 (09:18→21:51)
[2019-02-09] MEDS: MULTIVITAMINS (DAILY MVI) TABLET (FP) PO SCH (09:18)
[2019-02-09] MEDS: ASPIRIN COATED 81 MG TABLET.EC PO SCH (09:18)
[2019-02-09] MEDS: PANTOPRAZOLE 40 MG TABLET (FP) PO SCH (09:18)
--- NOTE | 2019-02-09 09:46 | PN ---
Progress Note, Physician Chief Complaint: TELE: Sinus mono, no sig pauses Sitting in chair, no distress - Current Medication List Current Medications: Active Medications Acetaminophen (Tylenol -) 650 mg PO Q6H PRN PRN Reason: Fever Or Pain Last Admin: 02/08/19 20:57 Dose: 650 mg Aspirin (Ecotrin -) 81 mg PO DAILY [facility] Last Admin: 02/09/19 09:18 Dose: 81 mg Baclofen (Lioresal -) 10 mg PO TID [facility] Last Admin: 02/09/19 06:01 Dose: 10 mg Brimonidine Tartrate (Alphagan 0.2% -) 1 drop OU TID [facility] Last Admin: 02/09/19 06:01 Dose: 1 drop Calcium Carbonate/Cholecalciferol (Os-Jay 500+D -) 1 tab PO BID [facility] Last Admin: 02/09/19 09:18 Dose: 1 tab Piperacillin Sod/Tazobactam (Sod 2.25 gm/ Dextrose) 50 mls @ 100 mls/hr IVPB Q6H-IV [facility]; Protocol Last Admin: 02/09/19 09:18 Dose: 100 mls/hr Insulin Aspart (Novolog Vial Sliding Scale -) 1 vial SQ ACHS [facility]; Protocol Last Admin: 02/09/19 07:05 Dose: 2 units Lisinopril (Prinivil) 10 mg PO DAILY [facility] Last Admin: 02/09/19 09:18 Dose: 10 mg Multivitamins/Minerals/Vitamin C (Tab-A-Vit -) 1 tab PO DAILY [facility] Last Admin: 02/09/19 09:18 Dose: 1 tab Pantoprazole Sodium (Protonix -) 40 mg PO DAILY [facility] Last Admin: 02/09/19 09:18 Dose: 40 mg Pregabalin (Lyrica -) 50 mg PO TID [facility] Last Admin: 02/09/19 06:01 Dose: 50 mg Ranitidine HCl (Zantac -) 150 mg PO HS [facility] Last Admin: 02/08/19 21:00 Dose: 150 mg Timolol Maleate (Timoptic 0.5%) 1 drop OU TID [facility] Last Admin: 02/09/19 06:01 Dose: 1 drop - Objective Vital Signs: Vital Signs Temperature 98.1 F 02/09/19 06:47 Pulse Rate 62 02/09/19 06:47 Respiratory Rate 18 02/09/19 08:54 Blood Pressure 119/69 02/09/19 06:47 O2 Sat by Pulse Oximetry (%) 95 02/09/19 08:54 Constitutional: Yes: No Distress Cardiovascular: Yes: Regular Rate and Rhythm Respiratory: Yes: CTA Bilaterally Gastrointestinal: Yes: Soft Edema: No Neurological: Yes: Alert, Oriented Labs: CBC, BMP 02/09/19 06:55 02/09/19 06:55 - ....Imaging EKG: Image Reviewed Assessment/Plan Assessment/Plan ekg: SR, RBBB,no sig change vs prior echo 08/2018: nl lv/rv, mild mr cxr: clear lungs mibi 11/2018 small to mod zone of inferolateral and lateral reversible defect c/ w mild intensity ischemia, EF 59% echo 11/2018 nl LV function, EF 55-60%, grade I diastolic dysufnction, PASP at least 41 mmHg Assessment and Plan: UTI: -abx per ID, PMD Presyncope: -no signs acs, chf, arrhythmia to cause symptoms. -check ortho vitals -recent echo unremarkable -?infection related Presumed cad: -Recent mibi with mild ischemia and pt/family opted for med management, no cath. -no signs acs, trops unremarkable -no cp -cont asa, monitor for new sxs HTN: -cont home meds CKD: -currently stable renal fxn
--- NOTE | 2019-02-09 16:19 | PN ---
Progress Note (short form) - Note Progress Note: Patient is feeling better with no acute distress. No fever or chills, doing better. Vital Signs Temperature 98.0 F 02/09/19 14:00 Pulse Rate 68 02/09/19 14:00 Respiratory Rate 18 02/09/19 14:00 Blood Pressure 120/55 L 02/09/19 14:00 O2 Sat by Pulse Oximetry (%) 95 02/09/19 08:54 Initial Vital Signs Temp Pulse Resp BP Pulse Ox 97.5 F L 73 18 115/52 L 96 02/06/19 17:08 02/06/19 17:08 02/06/19 17:08 02/06/19 17:08 02/06/19 17:08 GENERAL: NAD, comfortable HEAD: Normal with no signs of trauma. EYES:EOMI Sclera Clear NECK: Trachea midline, full range of motion, supple. cervical lipoma LUNGS: decreased BS at bases, CTA BL HEART: RRR, S1S2, MAYDA 2/6 ABDOMEN: Obese, NT to palpation, Urostomy in place. EXTREMITIES: 1+ pitting edema NEUROLOGICAL: Cranial nerves II through XII grossly intact. Normal speech. PSYCH: Normal mood, normal affect. SKIN: Warm, dry, normal turgor, no rashes noted CBCD WBC 4.2 K/mm3 (4.0-10.0) 02/09/19 06:55 RBC 3.59 M/mm3 (3.60-5.2) L 02/09/19 06:55 Hgb 10.1 GM/dL (10.7-15.3) L 02/09/19 06:55 Hct 31.8 % (32.4-45.2) L 02/09/19 06:55 MCV 88.5 fl (80-96) 02/09/19 06:55 MCHC 31.7 g/dl (32.0-36.0) L 02/09/19 06:55 RDW 16.1 % (11.6-15.6) H 02/09/19 06:55 Plt Count 185 K/MM3 (134-434) 02/09/19 06:55 MPV 9.4 fl (7.5-11.1) 02/09/19 06:55 CMP Sodium 138 mmol/L (136-145) 02/09/19 06:55 Potassium 4.4 mmol/L (3.5-5.1) 02/09/19 06:55 Chloride 103 mmol/L (98-107) 02/09/19 06:55 Carbon Dioxide 29 mmol/L (21-32) 02/09/19 06:55 Anion Gap 5 MMOL/L (8-16) L 02/09/19 06:55 BUN 19.6 mg/dL (7-18) H 02/09/19 06:55 Creatinine 1.8 mg/dL (0.55-1.3) H 02/09/19 06:55 Random Glucose 203 mg/dL (74-106) H 02/09/19 06:55 Calcium 8.3 mg/dL (8.5-10.1) L 02/09/19 06:55 Total Bilirubin 0.7 mg/dL (0.2-1) 02/07/19 06:15 AST 12 U/L (15-37) L 02/07/19 06:15 ALT 20 U/L (13-61) 02/07/19 06:15 Alkaline Phosphatase 155 U/L (45-117) H 02/07/19 06:15 Total Protein 5.8 g/dl (6.4-8.2) L 02/07/19 06:15 Albumin 2.5 g/dl (3.4-5.0) L 02/07/19 06:15 CARDIAC ENZYMES Troponin I < 0.02 ng/ml (0.00-0.05) 02/07/19 02:32 Current Medications Generic Name Dose Route Start Last Admin Trade Name Cristopherq PRN Reason Stop Dose Admin Acetaminophen 650 mg 02/07/19 19:31 02/08/19 20:57 Tylenol - PO 650 mg Q6H PRN Administration Fever Or Pain Aspirin 81 mg 02/07/19 17:45 02/09/19 09:18 Ecotrin - PO 81 mg DAILY [facility] Administration Baclofen 10 mg 02/07/19 22:00 02/09/19 13:54 Lioresal - PO 10 mg TID [facility] Administration Brimonidine Tartrate 1 drop 02/07/19 22:00 02/09/19 15:07 Alphagan 0.2% - OU Not Given TID [facility] Calcium Carbonate/Cholecalciferol 1 tab 02/07/19 22:00 02/09/19 09:18 Os-Jay 500+D - PO 1 tab BID [facility] Administration Piperacillin Sod/Tazobactam 50 mls @ 100 mls/hr 02/07/19 17:15 02/09/19 09:18 Sod 2.25 gm/ Dextrose IVPB 100 mls/hr Q6H-IV [facility] Administration Protocol Insulin Aspart 1 vial 02/08/19 07:00 02/09/19 11:45 Novolog Vial Sliding Scale - SQ 4 units ACHS [facility] Administration Protocol Lisinopril 10 mg 02/08/19 10:00 02/09/19 09:18 Prinivil PO 10 mg DAILY [facility] Administration Multivitamins/Minerals/Vitamin C 1 tab 02/07/19 17:45 02/09/19 09:18 Tab-A-Vit - PO 1 tab DAILY [facility] Administration Pantoprazole Sodium 40 mg 02/07/19 22:00 02/09/19 09:18 Protonix - PO 40 mg DAILY [facility] Administration Pregabalin 50 mg 02/07/19 22:00 02/09/19 13:54 Lyrica - PO 50 mg TID [facility] Administration Ranitidine HCl 150 mg 02/07/19 22:00 02/08/19 21:00 Zantac - PO 150 mg HS [facility] Administration Timolol Maleate 1 drop 02/07/19 22:00 02/09/19 15:07 Timoptic 0.5% OU Not Given TID [facility] Home Medications Medication Instructions Recorded Multivitamins [Multivit ([facility] 1 mg PO DAILY 05/08/17 Formulary)] Omeprazole 40 mg PO BID 05/08/17 Pregabalin [Lyrica -] 50 mg PO TID 05/08/17 Calcium Carbonate/Vitamin D3 600 mg PO BID 03/15/18 [Calcium 600 + Vit D 400 Softgl] Furosemide [Lasix -] 40 mg PO DAILY 11/17/18 Aspirin Coated [Ecotrin -] 81 mg PO DAILY #30 tablet.ec 11/19/18 Acetaminophen [Tylenol .Regular 650 mg PO Q6H PRN tablet 11/30/18 Strength -] Brimonidine Tartrate/Timolol 1 drop OU TID 02/06/19 [Combigan Eye Drops] Fluticasone Furoate [Arnuity 1 spray NS DAILY 02/06/19 Ellipta] Insulin Lispro Protamin/Lispro 27 unit SQ HS 02/06/19 [Humalog Mix 75-25 Kwikpen] Insulin Lispro Protamin/Lispro 30 unit SQ AM 02/06/19 [Humalog Mix 75-25 Kwikpen] Lisinopril/Hydrochlorothiazide 1 tablet PO DAILY 02/06/19 [Lisinopril-Hctz 10-12.5 mg Tab] Baclofen 10 mg PO TID 02/07/19 Carbidopa/Levodopa 25 - 100 mg PO TID 02/07/19 [Carbidopa-Levodopa 25-100 Tab] Diclofenac Sodium [Diclo Gel] 2 - 4 grams TP BID 02/07/19 Ranitidine [Zantac -] 150 mg PO HS 02/07/19 Microbiology 02/06/19 19:50 Urine - Urine Suprapubic Urine Culture - Preliminary Escherichia Coli Group D Strep Or Entero Coccus FOBT: negative EKG: SR, RBBB, no sig change compared to previous Echo (11/19/18): Grade 1 Diastolic Dysfunction, EF: 55-60%, pulmonary artery pressure 41 mm HG mibi 11/2018 small to mod zone of inferolateral and lateral reversible defect c/ w mild intensity ischemia, EF 59% Head CT negative for any acute bleed or pathology ASSESSMENT AND PLAN: Patient is a 78 y.o. 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 #Pre-Syncope: tele.monitoring . orthostatic vital signs # Acute UTI: due to E.coli but sensitivity is pending ,patient has suprapubic catheter, as per ID to keep the patient on Zosyn, will discontinue levaquin. # Anemia ; HgB: 10.3-->9.6 today, will monitor , repeat cbc #DVT Ppx. TEDs follow renal and bladder US and neck xray due to having lipoma Visit type - Emergency Visit Emergency Visit: Yes ED Registration Date: 02/07/19 Care time: The patient presented to the Emergency Department on the above date and was hospitalized for further evaluation of their emergent condition. - New Patient This patient is new to me today: No - Critical Care Critical Care patient: No - Discharge Referral Referred to [facility] No
--- NOTE | 2019-02-09 16:21 | PN ---
Progress Note, Physician History of Present Illness: Pt seen and examined. Chart reviewed/lab results noted. She states she feels well. Remains afebrile, alert. Denies any specific abd pain, had 1 BM today. C/ O neck pain x 2months but no decrease in ROM. No h/a or new focal deficits. - Current Medication List Current Medications: Active Medications Acetaminophen (Tylenol -) 650 mg PO Q6H PRN PRN Reason: Fever Or Pain Last Admin: 02/08/19 20:57 Dose: 650 mg Aspirin (Ecotrin -) 81 mg PO DAILY [facility] Last Admin: 02/09/19 09:18 Dose: 81 mg Baclofen (Lioresal -) 10 mg PO TID [facility] Last Admin: 02/09/19 13:54 Dose: 10 mg Brimonidine Tartrate (Alphagan 0.2% -) 1 drop OU TID [facility] Last Admin: 02/09/19 15:07 Dose: Not Given Calcium Carbonate/Cholecalciferol (Os-Jay 500+D -) 1 tab PO BID [facility] Last Admin: 02/09/19 09:18 Dose: 1 tab Piperacillin Sod/Tazobactam (Sod 2.25 gm/ Dextrose) 50 mls @ 100 mls/hr IVPB Q6H-IV [facility]; Protocol Last Admin: 02/09/19 09:18 Dose: 100 mls/hr Insulin Aspart (Novolog Vial Sliding Scale -) 1 vial SQ ACHS [facility]; Protocol Last Admin: 02/09/19 11:45 Dose: 4 units Lisinopril (Prinivil) 10 mg PO DAILY [facility] Last Admin: 02/09/19 09:18 Dose: 10 mg Multivitamins/Minerals/Vitamin C (Tab-A-Vit -) 1 tab PO DAILY [facility] Last Admin: 02/09/19 09:18 Dose: 1 tab Pantoprazole Sodium (Protonix -) 40 mg PO DAILY [facility] Last Admin: 02/09/19 09:18 Dose: 40 mg Pregabalin (Lyrica -) 50 mg PO TID [facility] Last Admin: 02/09/19 13:54 Dose: 50 mg Ranitidine HCl (Zantac -) 150 mg PO HS [facility] Last Admin: 02/08/19 21:00 Dose: 150 mg Timolol Maleate (Timoptic 0.5%) 1 drop OU TID [facility] Last Admin: 02/09/19 15:07 Dose: Not Given - Objective Vital Signs: Vital Signs Temperature 98.0 F 02/09/19 14:00 Pulse Rate 68 02/09/19 14:00 Respiratory Rate 18 02/09/19 14:00 Blood Pressure 120/55 L 02/09/19 14:00 O2 Sat by Pulse Oximetry (%) 95 02/09/19 08:54 Constitutional: Yes: No Distress, Calm Cardiovascular: Yes: Regular Rate and Rhythm Respiratory: Yes: Regular Gastrointestinal: Yes: Normal Bowel Sounds, Soft, Abdomen, Obese Genitourinary: Yes: Other (cystostomy, urostomy) Extremities: Yes: WNL Edema: No Integumentary: Yes: WNL Neurological: Yes: Alert Labs: CBC, BMP 02/09/19 06:55 02/09/19 06:55 Microbiology 02/06/19 19:50 Urine - Urine Suprapubic Urine Culture - Preliminary Escherichia Coli Group D Strep Or Entero Coccus - ....Imaging Ultrasound: Pending Problem List - Problems (1) Pre-syncope Code(s): R55 - SYNCOPE AND COLLAPSE (2) Urinary tract infection Code(s): N39.0 - URINARY TRACT INFECTION, SITE NOT SPECIFIED Qualifiers: Urinary tract infection type: site unspecified Hematuria presence: without hematuria Qualified Code(s): N39.0 - Urinary tract infection, site not specified (3) Acute renal failure Code(s): N17.9 - ACUTE KIDNEY FAILURE, UNSPECIFIED Qualifiers: Acute renal failure type: unspecified Qualified Code(s): N17.9 - Acute kidney failure, unspecified Assessment/Plan UTI Hx of Bladder CA s/p cystectomy/urostomy Presyncope CKD Hx of SAH Hx of DVT s/p IVC -- continue Zosyn -- f/u urine culture final results -- f/u bladder/renal sonogram results Pt currently alert, afebrile
[2019-02-09] MEDS: ACETAMINOPHEN 325 MG TABLET (FP) PO PRN (16:39)
[2019-02-09] MEDS: CARBIDOPA/LEVODOPA 25/100 TABLET (FP) PO SCH (21:50)
[2019-02-09] MEDS: RANITIDINE HCL 150 MG TABLET (FP) PO SCH (21:51)
[2019-02-10] MEDS: NYSTATIN 100,000 UNIT/GM TOPICAL CREAM 15 GM TUBE TP SCH ×3 (00:04→22:22)
[2019-02-10] MEDS ORDERED: DEXTROSE 5%-WATER - 50 ML IVPB ONE ×4 (01:47→20:44)
[2019-02-10] MEDS ORDERED: PIPERACILLIN/TAZOBACTAM 2.25 GM VIAL IVPB ONE ×4 (01:47→20:44)
[2019-02-10] MEDS: PIPERACILLIN/TAZOB 2.25 GM 2.25 GM in DEXTROSE 5%-WATER - 50 ML IVPB SCH ×4 (03:35→22:21)
[2019-02-10] MEDS: BACLOFEN 10 MG TABLET (FP) PO SCH ×2 (06:18→15:04)
[2019-02-10] MEDS: PREGABALIN 50 MG CAPSULE PO SCH ×2 (06:18→13:18)
[2019-02-10] MEDS: BRIMONIDINE TARTRATE 0.2% OPHTHALMIC 5 ML BOTTLE OU SCH ×2 (06:18→15:25)
[2019-02-10] MEDS: CARBIDOPA/LEVODOPA 25/100 TABLET (FP) PO SCH ×2 (06:18→13:07)
[2019-02-10] MEDS: TIMOLOL 0.5% OPHTHALMIC SOL 5 ML BOTTLE OU SCH ×2 (06:19→15:25)
[2019-02-10] MEDS: INSULIN SLIDING SCALE (NOVOLOG) 1 VIAL SQ SCH ×4 (06:20→22:27)
[2019-02-10] MEDS: CALCIUM 500MG/VIT-D 200 UNITS COMBO TABLET (FP) PO SCH ×2 (10:40→22:22)
[2019-02-10] MEDS: ASPIRIN COATED 81 MG TABLET.EC PO SCH (10:40)
[2019-02-10] MEDS: MULTIVITAMINS (DAILY MVI) TABLET (FP) PO SCH (10:40)
[2019-02-10] MEDS: LISINOPRIL 10 MG TABLET (FP) PO SCH (10:40)
[2019-02-10] MEDS: PANTOPRAZOLE 40 MG TABLET (FP) PO SCH (10:40)
[2019-02-10] MEDS: PRAMIPEXOLE DIHYDROCHLORIDE 0.5 MG TABLET PO SCH ×2 (13:19→22:22)
[2019-02-10] MEDS: ACETAMINOPHEN 325 MG TABLET (FP) PO PRN (15:30)
--- NOTE | 2019-02-10 18:07 | PN ---
Physical Exam: SUBJECTIVE: Patient seen and examined at bedside. Threw up this am after breakfast. vomit was black in color, but not coffee ground. OBJECTIVE: Vital Signs Period Temp Pulse Resp BP Sys/Adorno Pulse Ox Last 24 Hr 97.7 F-98.0 F 66-79 18-19 122-152/53-69 99-100 GENERAL: The patient is awake, alert, and fully oriented, in no acute distress. NECK: Trachea midline, full range of motion, supple. LUNGS: Breath sounds equal, clear to auscultation bilaterally, no wheezes, no crackles, no accessory muscle use. HEART: Regular rate and rhythm, S1, S2 without murmur, rub or gallop. ABDOMEN: Soft, nontender, nondistended, normoactive bowel sounds, no guarding, no rebound, no hepatosplenomegaly, no masses. EXTREMITIES: 2+ pulses, warm, well-perfused, no edema. NEUROLOGICAL: Cranial nerves II through X grossly intact. Normal speech, gait not observed. PSYCH: Normal mood, normal affect. SKIN: Warm, dry, normal turgor, no rashes or lesions noted Laboratory Results - last 24 hr 02/09/19 02/10/19 02/10/19 21:56 05:49 11:24 POC Glucometer 184 189 187 02/10/19 16:32 POC Glucometer 202 Active Medications Generic Name Dose Route Start Last Admin Trade Name Freq PRN Reason Stop Dose Admin Acetaminophen 650 mg 02/07/19 19:31 02/10/19 15:30 Tylenol - PO 650 mg Q6H PRN Administration Fever Or Pain Aspirin 81 mg 02/07/19 17:45 02/10/19 10:40 Ecotrin - PO 81 mg DAILY [facility] Administration Calcium Carbonate/Cholecalciferol 1 tab 02/07/19 22:00 02/10/19 10:40 Os-Jay 500+D - PO 1 tab BID [facility] Administration Piperacillin Sod/Tazobactam 50 mls @ 100 mls/hr 02/07/19 17:15 02/10/19 15:13 Sod 2.25 gm/ Dextrose IVPB 100 mls/hr Q6H-IV [facility] Administration Protocol Insulin Aspart 1 vial 02/08/19 07:00 02/10/19 16:43 Novolog Vial Sliding Scale - SQ 4 units ACHS [facility] Administration Protocol Lisinopril 10 mg 02/08/19 10:00 02/10/19 10:40 Prinivil PO 10 mg DAILY [facility] Administration Multivitamins/Minerals/Vitamin C 1 tab 02/07/19 17:45 02/10/19 10:40 Tab-A-Vit - PO 1 tab DAILY [facility] Administration Nystatin 1 applic 02/09/19 22:00 02/10/19 11:19 Mycostatin Cream - TP 1 applic BID [facility] Administration Pantoprazole Sodium 40 mg 02/07/19 22:00 02/10/19 10:40 Protonix - PO 40 mg DAILY [facility] Administration Pramipexole Dihydrochloride 0.5 mg 02/10/19 13:00 02/10/19 13:19 Mirapex - PO 0.5 mg BID [facility] Administration ASSESSMENT/PLAN: Pt. is a 78 y.o. F w/ PMHx. of HTN, IDDM, Bladder Ca (s/p radical cystectomy and urostomy placement 2004), SAH(2016-residual right sided weakness and, right sided facial droop with smile), DVTs (s/p IVC Filter, not on AC), CKD, GERD, and Parkinson's Disease presents after pre-syncopal episode while on the toilet passing stool. #Pre-Syncope -orthostatics positive -EKG: SR, RBBB, no sig change compared to previous -no other abnormalities -no events on tele #Positive UA UA+: 3+ LE, WBC: 365 Given Levaquin in the ED. Will stop ABx as pt afebrile, no white count, no signs/symptoms of active infection. -Renal/Pelvic Sono shows right sided hydronephrosis not present on sono from november. No uro interventions needed at this time. Can follow up with uro as outpt -c/w zosyn as per ID #Melena -FOBT NEGATIVE #FEN -no fluids indicated -monitor electrolytes an replete as needed -Na+/Diabetic Diet #DVT Ppx. -TEDs #dispo -med surg -for DC in am. pt needs ambulette to go home. Pt daughter requesting she be there for transfer home; will be at hosp approx 5pm. Visit type - Emergency Visit Emergency Visit: Yes ED Registration Date: 02/07/19 Care time: The patient presented to the Emergency Department on the above date and was hospitalized for further evaluation of their emergent condition. - New Patient This patient is new to me today: Yes Date on this admission: 02/10/19 - Critical Care Critical Care patient: No - Discharge Referral Referred to [facility] No
--- NOTE | 2019-02-10 19:44 | PN ---
Teaching Attending Note Name of Resident: Earnest Ochoa ATTENDING PHYSICIAN STATEMENT I saw and evaluated the patient. I reviewed the resident's note and discussed the case with the resident. I agree with the resident's findings and plan as documented. SUBJECTIVE: Patient is comfortable with no acute distress, no shortness of breath, no nausea or vomiting. Patient is c/o having this lump on her back of her neck. OBJECTIVE: Vital Signs Temperature 97.8 F 02/10/19 18:41 Pulse Rate 60 02/10/19 18:41 Respiratory Rate 18 02/10/19 18:41 Blood Pressure 155/66 02/10/19 18:41 O2 Sat by Pulse Oximetry (%) 100 02/10/19 09:00 GENERAL: NAD, comfortable HEAD: Normal with no signs of trauma. EYES:EOMI Sclera Clear NECK: Trachea midline, full range of motion, supple. cervical lipoma LUNGS: decreased BS at bases, CTA BL HEART: RRR, S1S2, MAYDA 2/6 ABDOMEN: Obese, NT to palpation, Urostomy in place. EXTREMITIES: 1+ pitting edema NEUROLOGICAL: Cranial nerves II through XII grossly intact. Normal speech. PSYCH: Normal mood, normal affect. SKIN: Warm, dry, normal turgor, no rashes noted CBCD WBC 4.2 K/mm3 (4.0-10.0) 02/09/19 06:55 RBC 3.59 M/mm3 (3.60-5.2) L 02/09/19 06:55 Hgb 10.1 GM/dL (10.7-15.3) L 02/09/19 06:55 Hct 31.8 % (32.4-45.2) L 02/09/19 06:55 MCV 88.5 fl (80-96) 02/09/19 06:55 MCHC 31.7 g/dl (32.0-36.0) L 02/09/19 06:55 RDW 16.1 % (11.6-15.6) H 02/09/19 06:55 Plt Count 185 K/MM3 (134-434) 02/09/19 06:55 MPV 9.4 fl (7.5-11.1) 02/09/19 06:55 CMP Sodium 138 mmol/L (136-145) 02/09/19 06:55 Potassium 4.4 mmol/L (3.5-5.1) 02/09/19 06:55 Chloride 103 mmol/L (98-107) 02/09/19 06:55 Carbon Dioxide 29 mmol/L (21-32) 02/09/19 06:55 Anion Gap 5 MMOL/L (8-16) L 02/09/19 06:55 BUN 19.6 mg/dL (7-18) H 02/09/19 06:55 Creatinine 1.8 mg/dL (0.55-1.3) H 02/09/19 06:55 Random Glucose 203 mg/dL (74-106) H 02/09/19 06:55 Calcium 8.3 mg/dL (8.5-10.1) L 02/09/19 06:55 Total Bilirubin 0.7 mg/dL (0.2-1) 02/07/19 06:15 AST 12 U/L (15-37) L 02/07/19 06:15 ALT 20 U/L (13-61) 02/07/19 06:15 Alkaline Phosphatase 155 U/L (45-117) H 02/07/19 06:15 Total Protein 5.8 g/dl (6.4-8.2) L 02/07/19 06:15 Albumin 2.5 g/dl (3.4-5.0) L 02/07/19 06:15 CARDIAC ENZYMES Troponin I < 0.02 ng/ml (0.00-0.05) 02/07/19 02:32 Current Medications Generic Name Dose Route Start Last Admin Trade Name Freq PRN Reason Stop Dose Admin Acetaminophen 650 mg 02/07/19 19:31 02/10/19 15:30 Tylenol - PO 650 mg Q6H PRN Administration Fever Or Pain Aspirin 81 mg 02/07/19 17:45 02/10/19 10:40 Ecotrin - PO 81 mg DAILY GLORIA Administration Calcium Carbonate/Cholecalciferol 1 tab 02/07/19 22:00 02/10/19 10:40 Os-Jay 500+D - PO 1 tab BID GLORIA Administration Piperacillin Sod/Tazobactam 50 mls @ 100 mls/hr 02/07/19 17:15 02/10/19 15:13 Sod 2.25 gm/ Dextrose IVPB 100 mls/hr Q6H-IV GLORIA Administration Protocol Insulin Aspart 1 vial 02/08/19 07:00 02/10/19 16:43 Novolog Vial Sliding Scale - SQ 4 units ACHS GLORIA Administration Protocol Lisinopril 10 mg 02/08/19 10:00 02/10/19 10:40 Prinivil PO 10 mg DAILY GLORIA Administration Multivitamins/Minerals/Vitamin C 1 tab 02/07/19 17:45 02/10/19 10:40 Tab-A-Vit - PO 1 tab DAILY GLORIA Administration Nystatin 1 applic 02/09/19 22:00 02/10/19 11:19 Mycostatin Cream - TP 1 applic BID GLORIA Administration Pantoprazole Sodium 40 mg 02/07/19 22:00 02/10/19 10:40 Protonix - PO 40 mg DAILY GLORIA Administration Pramipexole Dihydrochloride 0.5 mg 02/10/19 13:00 02/10/19 13:19 Mirapex - PO 0.5 mg BID GLORIA Administration Home Medications Medication Instructions Recorded Multivitamins [Multivit ([facility] 1 mg PO DAILY 05/08/17 Formulary)] Pregabalin [Lyrica -] 50 mg PO TID 05/08/17 Calcium Carbonate/Vitamin D3 600 mg PO BID 03/15/18 [Calcium 600 + Vit D 400 Softgl] Furosemide [Lasix -] 40 mg PO DAILY 11/17/18 Aspirin Coated [Ecotrin -] 81 mg PO DAILY #30 tablet.ec 11/19/18 Brimonidine Tartrate/Timolol 1 drop OU TID 02/06/19 [Combigan 0.2%-0.5% Eye Drops] Fluticasone Furoate [Arnuity 1 spray NS DAILY 02/06/19 Ellipta] Insulin Lispro Protamin/Lispro 27 unit SQ HS 02/06/19 [Humalog Mix 75-25 Kwikpen] Insulin Lispro Protamin/Lispro 30 unit SQ AM 02/06/19 [Humalog Mix 75-25 Kwikpen] Lisinopril/Hydrochlorothiazide 1 tablet PO DAILY 02/06/19 [Lisinopril-Hctz 10-12.5 mg Tab] Diclofenac Sodium [Diclo Gel] 2 - 4 grams TP BID 02/07/19 Ranitidine [Zantac -] 150 mg PO HS 02/07/19 Cefpodoxime Proxetil [Vantin -] 200 mg PO Q12H #10 tablet 02/10/19 Microbiology 02/06/19 19:50 Urine - Urine Suprapubic Urine Culture - Final Escherichia Coli Enterococcus Faecalis Cat scan of your neck showed nonspecific left thyroid nodule 1cm; please follow with clothes designer for further work up and ultra sound. FOBT: negative EKG: SR, RBBB, no sig change compared to previous Echo (11/19/18): Grade 1 Diastolic Dysfunction, EF: 55-60%, pulmonary artery pressure 41 mm HG mibi 11/2018 small to mod zone of inferolateral and lateral reversible defect c/ w mild intensity ischemia, EF 59% Head CT negative for any acute bleed or pathology ASSESSMENT AND PLAN: Patient is a 78 y.o. 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 #Pre-Syncope: no further event. # Acute UTI: due to E.coli sensitivity is back , discussed with ID ok to discharge the patient on Vantin 200mg po bid x 5 days ,patient has suprapubic catheter. # Anemia ; HgB: 10.3-->9.6 today, will monitor , repeat cbc #DVT Ppx. TEDs
[2019-02-10] MEDS ORDERED: PT OWN MED DRAWER 7, Y5N ONE (20:42)
[2019-02-11] MEDS ORDERED: PIPERACILLIN/TAZOBACTAM 2.25 GM VIAL IVPB ONE ×3 (02:00→16:48)
[2019-02-11] MEDS ORDERED: DEXTROSE 5%-WATER - 50 ML IVPB ONE ×3 (02:00→16:48)
[2019-02-11] MEDS: PIPERACILLIN/TAZOB 2.25 GM 2.25 GM in DEXTROSE 5%-WATER - 50 ML IVPB SCH ×3 (02:05→16:57)
[2019-02-11] MEDS: INSULIN SLIDING SCALE (NOVOLOG) 1 VIAL SQ SCH ×3 (06:39→17:27)
[2019-02-11] MEDS ORDERED: PT OWN MED DRAWER 7, Y5N ONE (09:07)
[2019-02-11] MEDS: MULTIVITAMINS (DAILY MVI) TABLET (FP) PO SCH (09:21)
[2019-02-11] MEDS: PANTOPRAZOLE 40 MG TABLET (FP) PO SCH (09:21)
[2019-02-11] MEDS: CALCIUM 500MG/VIT-D 200 UNITS COMBO TABLET (FP) PO SCH (09:21)
[2019-02-11] MEDS: LISINOPRIL 10 MG TABLET (FP) PO SCH (09:21)
[2019-02-11] MEDS: PRAMIPEXOLE DIHYDROCHLORIDE 0.5 MG TABLET PO SCH ×2 (09:22→10:29)
[2019-02-11] MEDS: ASPIRIN COATED 81 MG TABLET.EC PO SCH (09:22)
[2019-02-11] MEDS ORDERED: PREGABALIN 50 MG CAPSULE PO SCH (10:00)
[2019-02-11 11:11] LABS: BASO % 0.1 % (0-2.0); EOS % 0.4 % (0-4.5); HEMATOCRIT 30.5 % (32.4-45.2); HEMOGLOBIN 9.8 GM/dL (10.7-15.3); LYMPH % 19.3 % (8-40); MCH 28.3 pg (25.7-33.7); MCHC 32.2 g/dl (32.0-36.0); MEAN CELL VOLUME 87.9 fl (80-96); MEAN PLT VOLUME 8.7 fl (7.5-11.1); MONO % 6.2 % (3.8-10.2); PLATELET COUNT 181 K/MM3 (134-434); RBC 3.46 M/mm3 (3.60-5.2); RDW 16.3 % (11.6-15.6); WHITE BLOOD COUNT 4.7 K/mm3 (4.0-10.0)
[2019-02-11 11:34] LABS: BLOOD UREA NITROGEN 23.6 mg/dL (7-18); CALCIUM 8.1 mg/dL (8.5-10.1); POTASSIUM 4.6 mmol/L (3.5-5.1)
[2019-02-11] MEDS: NYSTATIN 100,000 UNIT/GM TOPICAL CREAM 15 GM TUBE TP SCH (12:02)
--- NOTE | 2019-02-11 13:30 | PN ---
Progress Note, Physician History of Present Illness: doing well no new issues - Current Medication List Current Medications: Active Medications Acetaminophen (Tylenol -) 650 mg PO Q6H PRN PRN Reason: Fever Or Pain Last Admin: 02/10/19 15:30 Dose: 650 mg Aspirin (Ecotrin -) 81 mg PO DAILY [facility] Last Admin: 02/11/19 09:22 Dose: 81 mg Calcium Carbonate/Cholecalciferol (Os-Jay 500+D -) 1 tab PO BID [facility] Last Admin: 02/11/19 09:21 Dose: 1 tab Piperacillin Sod/Tazobactam (Sod 2.25 gm/ Dextrose) 50 mls @ 100 mls/hr IVPB Q6H-IV [facility]; Protocol Last Admin: 02/11/19 09:22 Dose: 100 mls/hr Insulin Aspart (Novolog Vial Sliding Scale -) 1 vial SQ ACHS [facility]; Protocol Last Admin: 02/11/19 06:39 Dose: Not Given Lisinopril (Prinivil) 10 mg PO DAILY [facility] Last Admin: 02/11/19 09:21 Dose: 10 mg Multivitamins/Minerals/Vitamin C (Tab-A-Vit -) 1 tab PO DAILY [facility] Last Admin: 02/11/19 09:21 Dose: 1 tab Nystatin (Mycostatin Cream -) 1 applic TP BID [facility] Last Admin: 02/11/19 12:02 Dose: 1 applic Pantoprazole Sodium (Protonix -) 40 mg PO DAILY [facility] Last Admin: 02/11/19 09:21 Dose: 40 mg Pramipexole Dihydrochloride (Mirapex -) 0.5 mg PO BID [facility] Last Admin: 02/11/19 10:29 Dose: 0.5 mg Pregabalin (Lyrica -) 50 mg PO DAILY [facility] Last Admin: 02/11/19 10:26 Dose: 50 mg - Objective Vital Signs: Vital Signs Temperature 98.3 F 02/11/19 09:45 Pulse Rate 64 02/11/19 09:45 Respiratory Rate 18 02/11/19 09:45 Blood Pressure 137/63 02/11/19 09:45 O2 Sat by Pulse Oximetry (%) 98 02/11/19 09:00 Constitutional: Yes: No Distress, Calm Cardiovascular: Yes: S1, S2 Respiratory: Yes: Regular, CTA Bilaterally Gastrointestinal: Yes: Normal Bowel Sounds, Soft Musculoskeletal: Yes: WNL Extremities: Yes: WNL Neurological: Yes: Alert, Oriented Psychiatric: Yes: Alert, Oriented Labs: CBC, BMP 02/11/19 10:52 02/11/19 10:52 Assessment/Plan 78 y.o. F w/ PMHx. 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 Pre-Syncope uti r/o thelma abd pain plan continue current mgmt rest as per the team
--- NOTE | 2019-02-11 13:44 | DS ---
Physical Exam: SUBJECTIVE: Patient seen and examined at bedside. No acute events overnight. OBJECTIVE: Vital Signs Period Temp Pulse Resp BP Sys/Adorno Pulse Ox Last 24 Hr 97.7 F-98.3 F 60-65 18-18 130-155/63-72 98-98 PHYSICAL EXAM GENERAL: NAD HEAD: Normal with no signs of trauma. EYES:EOMI Sclera Clear LUNGS: CTAB HEART: RRR S1S2 ABDOMEN: Obese, Urostomy in place, stoma pink. Stage 1 Ulcer under pannus. EXTREMITIES: 1+ pitting edema PSYCH: Normal mood, normal affect. SKIN: Warm, dry, normal turgor, no rashes or lesions noted LABS Laboratory Results - last 24 hr 02/10/19 02/10/19 02/10/19 16:32 22:10 22:25 WBC RBC Hgb Hct MCV MCH MCHC RDW Plt Count MPV Absolute Neuts (auto) Neutrophils % Lymphocytes % Monocytes % Eosinophils % Basophils % Nucleated RBC % Sodium Potassium Chloride Carbon Dioxide Anion Gap BUN Creatinine Est GFR (CKD-EPI)AfAm Est GFR (CKD-EPI)NonAf POC Glucometer 202 160 Random Glucose Calcium Stool Occult Blood Negative 02/11/19 02/11/19 02/11/19 06:37 10:52 10:52 WBC 4.7 RBC 3.46 L Hgb 9.8 L Hct 30.5 L MCV 87.9 MCH 28.3 MCHC 32.2 RDW 16.3 H Plt Count 181 MPV 8.7 Absolute Neuts (auto) 3.5 Neutrophils % 74.0 Lymphocytes % 19.3 Monocytes % 6.2 Eosinophils % 0.4 Basophils % 0.1 Nucleated RBC % 0 Sodium 142 Potassium 4.6 Chloride 110 H Carbon Dioxide 27 Anion Gap 5 L BUN 23.6 H Creatinine 2.0 H Est GFR (CKD-EPI)AfAm 26.84 Est GFR (CKD-EPI)NonAf 23.16 POC Glucometer 148 Random Glucose 263 H Calcium 8.1 L Stool Occult Blood 02/11/19 11:44 WBC RBC Hgb Hct MCV MCH MCHC RDW Plt Count MPV Absolute Neuts (auto) Neutrophils % Lymphocytes % Monocytes % Eosinophils % Basophils % Nucleated RBC % Sodium Potassium Chloride Carbon Dioxide Anion Gap BUN Creatinine Est GFR (CKD-EPI)AfAm Est GFR (CKD-EPI)NonAf POC Glucometer 250 Random Glucose Calcium Stool Occult Blood HOSPITAL COURSE: Date of Admission:02/07/19 Pt is a 78 y.o. F w/ PMHx. of HTN, IDDM, Bladder Ca (s/p radical cystectomy and urostomy placement 2004), SAH (2017-residual right sided weakness and, right sided facial droop with smile), DVTs (s/p IVC Filter, not on AC), CKD, GERD, and Parkinson's Disease who presented to [facility] after experiencing a pre- syncopal episode while on the toilet passing stool. Pt had positive orthostatics . EKG revealed NSR, RBBB, no sig change compared to previous. Head CT revealed no acute intracranial pathology. Urinalyis revealed 3+ leukocyte esterase with 365 WBCs. Pt was initially treated with Levaquin in ED but ultimately switched to Zosyn. Renal/Pelvic Sono shows right sided hydronephrosis not present on sono from November. No uro interventions were needed. FOBT was negative. Pt discharged on Cefpodoxime antibiotic. Date of Discharge: 02/11/19 Minutes to complete discharge: 35 Discharge Summary Reason For Visit: URINARY TRACT INFECTION, PRE-SYNCOPE Current Active Problems Pre-syncope (Acute) Condition: Improved - Instructions Diet, Activity, Other Instructions: You were admitted for an infection in your urine. We are sending you home with an antibiotic to continue to fight your infection. Please take all of your antibiotic as prescribed for the molding associate your are prescribed it, even if you feel better. Please take Cefpodoxime 200mg twice per day for an additional 5 days. Please resume taking the remainder of your home medications as prescribed. Please follow up with your primary care physician within one week of discharge. While in the hospital, we noticed that you have some mild swelling in your right kidney. There is nothing further to do for this while you are in the hospital, but you will need to follow up with your urologist, Dr. Lamberto Gomez, within one week of discharge home for further evaluation and treatment. If you begin to experience chest pain, shortness of breath, fevers, or if any of your symptoms become worse, please call your doctor or return to the emergency department. Referrals: Lamberto Gomez MD [Staff Physician] - 1 Week Disposition: HOME - Home Medications Comprehensive Discharge Medication List: Ambulatory Orders Multivitamins [Multivit ([facility] Formulary)] 1 mg PO DAILY 05/08/17 Pregabalin [Lyrica -] 50 mg PO TID 05/08/17 Calcium Carbonate/Vitamin D3 [Calcium 600 + Vit D 400 Softgl] 600 mg PO BID Furosemide [Lasix -] 40 mg PO DAILY 11/17/18 Aspirin Coated [Ecotrin -] 81 mg PO DAILY #30 tablet.ec 11/19/18 Brimonidine Tartrate/Timolol [Combigan 0.2%-0.5% Eye Drops] 1 drop OU TID Fluticasone Furoate [Arnuity Ellipta] 1 spray NS DAILY 02/06/19 Insulin Lispro Protamin/Lispro [Humalog Mix 75-25 Kwikpen] 27 unit SQ HS Insulin Lispro Protamin/Lispro [Humalog Mix 75-25 Kwikpen] 30 unit SQ AM Lisinopril/Hydrochlorothiazide [Lisinopril-Hctz 10-12.5 mg Tab] 1 tablet PO DAILY 02/06/19 Diclofenac Sodium [Diclo Gel] 2 - 4 grams TP BID 02/07/19 Ranitidine [Zantac -] 150 mg PO HS 02/07/19 Cefpodoxime Proxetil [Vantin -] 200 mg PO Q12H #10 tablet 02/10/19 Zinc Oxide [Triple Paste] 56.7 gm TP BID #1 bottle 02/11/19 This patient is new to me today: No Emergency Visit: Yes ED Registration Date: 02/07/19 Care time: The patient presented to the Emergency Department on the above date and was hospitalized for further evaluation of their emergent condition. Critical Care patient: No - Discharge Referral Referred to [facility] Med P.C.: No
--- NOTE | 2019-02-11 16:14 | PN ---
Progress Note (short form) - Note Progress Note: s: no chest pain, palps, dizziness Current Medications Acetaminophen (Tylenol -) 650 mg PO Q6H PRN PRN Reason: Fever Or Pain Last Admin: 02/10/19 15:30 Dose: 650 mg Aspirin (Ecotrin -) 81 mg PO DAILY [facility] Last Admin: 02/11/19 09:22 Dose: 81 mg Calcium Carbonate/Cholecalciferol (Os-Jay 500+D -) 1 tab PO BID [facility] Last Admin: 02/11/19 09:21 Dose: 1 tab Piperacillin Sod/Tazobactam (Sod 2.25 gm/ Dextrose) 50 mls @ 100 mls/hr IVPB Q6H-IV [facility]; Protocol Last Admin: 02/11/19 09:22 Dose: 100 mls/hr Insulin Aspart (Novolog Vial Sliding Scale -) 1 vial SQ ACHS [facility]; Protocol Last Admin: 02/11/19 13:30 Dose: Not Given Lisinopril (Prinivil) 10 mg PO DAILY [facility] Last Admin: 02/11/19 09:21 Dose: 10 mg Multivitamins/Minerals/Vitamin C (Tab-A-Vit -) 1 tab PO DAILY [facility] Last Admin: 02/11/19 09:21 Dose: 1 tab Nystatin (Mycostatin Cream -) 1 applic TP BID [facility] Last Admin: 02/11/19 12:02 Dose: 1 applic Pantoprazole Sodium (Protonix -) 40 mg PO DAILY [facility] Last Admin: 02/11/19 09:21 Dose: 40 mg Pramipexole Dihydrochloride (Mirapex -) 0.5 mg PO BID [facility] Last Admin: 02/11/19 10:29 Dose: 0.5 mg Pregabalin (Lyrica -) 50 mg PO DAILY [facility] Last Admin: 02/11/19 10:26 Dose: 50 mg Vital Signs Period Temp Pulse Resp BP Sys/Adorno Pulse Ox Last 24 Hr 97.8 F-98.7 F 60-65 18-20 130-155/53-72 98-98 Constitutional: Yes: No Distress Cardiovascular: Yes: Regular Rate and Rhythm Respiratory: Yes: CTA Bilaterally Gastrointestinal: Yes: Soft Edema: No Neurological: Yes: Alert, Oriented no jaundice, diaphoresis not agitated - ....Imaging EKG: Image Reviewed Assessment/Plan ekg: SR, RBBB,no sig change vs prior echo 08/2018: nl lv/rv, mild mr cxr: clear lungs mibi 11/2018 small to mod zone of inferolateral and lateral reversible defect c/ w mild intensity ischemia, EF 59% echo 11/2018 nl LV function, EF 55-60%, grade I diastolic dysufnction, PASP at least 41 mmHg Assessment and Plan: UTI: -abx per ID, PMD Presyncope: -no signs acs, chf, arrhythmia to cause symptoms. - + orthostatics, encouraged hydration -recent echo unremarkable -may have been related to UTI - improved Presumed cad: -Recent mibi with mild ischemia and pt/family opted for med management, no cath. -no signs acs, trops unremarkable -no cp -cont asa, monitor for new sxs HTN: -cont home meds CKD: -currently stable renal fxn
--- NOTE | 2019-02-11 17:30 | PN ---
Teaching Attending Note Name of Resident: Torrey Pickering ATTENDING PHYSICIAN STATEMENT I saw and evaluated the patient. I reviewed the resident's note and discussed the case with the resident. I agree with the resident's findings and plan as documented. SUBJECTIVE: Patient is comfortable with no acute distress. OBJECTIVE: Vital Signs Temperature 98.7 F 02/11/19 15:15 Pulse Rate 63 02/11/19 15:15 Respiratory Rate 20 02/11/19 15:15 Blood Pressure 137/53 L 02/11/19 15:15 O2 Sat by Pulse Oximetry (%) 98 02/11/19 09:00 GENERAL: NAD, comfortable HEAD: Normal with no signs of trauma. EYES:EOMI Sclera Clear NECK: Trachea midline, full range of motion, supple. cervical lipoma LUNGS: decreased BS at bases, CTA BL HEART: RRR, S1S2, MAYDA 2/6 ABDOMEN: Obese, NT to palpation, Urostomy in place. EXTREMITIES: 1+ pitting edema NEUROLOGICAL: Cranial nerves II through XII grossly intact. Normal speech. PSYCH: Normal mood, normal affect. SKIN: Warm, dry, normal turgor, no rashes noted CBCD WBC 4.7 K/mm3 (4.0-10.0) 02/11/19 10:52 RBC 3.46 M/mm3 (3.60-5.2) L 02/11/19 10:52 Hgb 9.8 GM/dL (10.7-15.3) L 02/11/19 10:52 Hct 30.5 % (32.4-45.2) L 02/11/19 10:52 MCV 87.9 fl (80-96) 02/11/19 10:52 MCHC 32.2 g/dl (32.0-36.0) 02/11/19 10:52 RDW 16.3 % (11.6-15.6) H 02/11/19 10:52 Plt Count 181 K/MM3 (134-434) 02/11/19 10:52 MPV 8.7 fl (7.5-11.1) 02/11/19 10:52 CMP Sodium 142 mmol/L (136-145) 02/11/19 10:52 Potassium 4.6 mmol/L (3.5-5.1) 02/11/19 10:52 Chloride 110 mmol/L (98-107) H 02/11/19 10:52 Carbon Dioxide 27 mmol/L (21-32) 02/11/19 10:52 Anion Gap 5 MMOL/L (8-16) L 02/11/19 10:52 BUN 23.6 mg/dL (7-18) H 02/11/19 10:52 Creatinine 2.0 mg/dL (0.55-1.3) H 02/11/19 10:52 Random Glucose 263 mg/dL (74-106) H 02/11/19 10:52 Calcium 8.1 mg/dL (8.5-10.1) L 02/11/19 10:52 Total Bilirubin 0.7 mg/dL (0.2-1) 02/07/19 06:15 AST 12 U/L (15-37) L 02/07/19 06:15 ALT 20 U/L (13-61) 02/07/19 06:15 Alkaline Phosphatase 155 U/L (45-117) H 02/07/19 06:15 Total Protein 5.8 g/dl (6.4-8.2) L 02/07/19 06:15 Albumin 2.5 g/dl (3.4-5.0) L 02/07/19 06:15 CARDIAC ENZYMES Troponin I < 0.02 ng/ml (0.00-0.05) 02/07/19 02:32 Home Medications Medication Instructions Recorded Multivitamins [Multivit ([facility] 1 mg PO DAILY 05/08/17 Formulary)] Pregabalin [Lyrica -] 50 mg PO TID 05/08/17 Calcium Carbonate/Vitamin D3 600 mg PO BID 03/15/18 [Calcium 600 + Vit D 400 Softgl] Furosemide [Lasix -] 40 mg PO DAILY 11/17/18 Aspirin Coated [Ecotrin -] 81 mg PO DAILY #30 tablet.ec 11/19/18 Brimonidine Tartrate/Timolol 1 drop OU TID 02/06/19 [Combigan 0.2%-0.5% Eye Drops] Fluticasone Furoate [Arnuity 1 spray NS DAILY 02/06/19 Ellipta] Insulin Lispro Protamin/Lispro 27 unit SQ HS 02/06/19 [Humalog Mix 75-25 Kwikpen] Insulin Lispro Protamin/Lispro 30 unit SQ AM 02/06/19 [Humalog Mix 75-25 Kwikpen] Lisinopril/Hydrochlorothiazide 1 tablet PO DAILY 02/06/19 [Lisinopril-Hctz 10-12.5 mg Tab] Diclofenac Sodium [Diclo Gel] 2 - 4 grams TP BID 02/07/19 Ranitidine [Zantac -] 150 mg PO HS 02/07/19 Cefpodoxime Proxetil [Vantin -] 200 mg PO Q12H #10 tablet 02/10/19 Zinc Oxide [Triple Paste] 56.7 gm TP BID #1 bottle 02/11/19 Current Medications Generic Name Dose Route Start Last Admin Trade Name Freq PRN Reason Stop Dose Admin Acetaminophen 650 mg 02/07/19 19:31 02/10/19 15:30 Tylenol - PO 650 mg Q6H PRN Administration Fever Or Pain Aspirin 81 mg 02/07/19 17:45 02/11/19 09:22 Ecotrin - PO 81 mg DAILY [facility] Administration Calcium Carbonate/Cholecalciferol 1 tab 02/07/19 22:00 02/11/19 09:21 Os-Jay 500+D - PO 1 tab BID [facility] Administration Piperacillin Sod/Tazobactam 50 mls @ 100 mls/hr 02/07/19 17:15 02/11/19 16:57 Sod 2.25 gm/ Dextrose IVPB 100 mls/hr Q6H-IV [facility] Administration Protocol Insulin Aspart 1 vial 02/08/19 07:00 02/11/19 17:27 Novolog Vial Sliding Scale - SQ Not Given ACHS [facility]IA Protocol Lisinopril 10 mg 02/08/19 10:00 02/11/19 09:21 Prinivil PO 10 mg DAILY [facility] Administration Multivitamins/Minerals/Vitamin C 1 tab 02/07/19 17:45 02/11/19 09:21 Tab-A-Vit - PO 1 tab DAILY [facility] Administration Nystatin 1 applic 02/09/19 22:00 02/11/19 12:02 Mycostatin Cream - TP 1 applic BID [facility] Administration Pantoprazole Sodium 40 mg 02/07/19 22:00 02/11/19 09:21 Protonix - PO 40 mg DAILY [facility] Administration Pramipexole Dihydrochloride 0.5 mg 02/10/19 13:00 02/11/19 10:29 Mirapex - PO 0.5 mg BID [facility] Administration Pregabalin 50 mg 02/11/19 10:00 02/11/19 10:26 Lyrica - PO 50 mg DAILY [facility] Administration 02/06/19 19:50 Urine - Urine Suprapubic Urine Culture - Final Escherichia Coli Enterococcus Faecalis Cat scan of your neck showed nonspecific left thyroid nodule 1cm; please follow with testing shaking shipping for further work up and ultra sound. FOBT: negative EKG: SR, RBBB, no sig change compared to previous Echo (11/19/18): Grade 1 Diastolic Dysfunction, EF: 55-60%, pulmonary artery pressure 41 mm HG mibi 11/2018 small to mod zone of inferolateral and lateral reversible defect c/ w mild intensity ischemia, EF 59% Head CT negative for any acute bleed or pathology ASSESSMENT AND PLAN: Patient is a 78 y.o. 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 # No new event overnight, patient will be discharged home today. # Mild hydronephrosis on US : follow with urologist Dr.Niyal pickering her urologist as an outpatient. 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 #Pre-Syncope: no further event. # Acute UTI: due to E.coli sensitivity is back , discussed with ID ok to discharge the patient on Vantin 200mg po bid x 5 days ,patient has suprapubic catheter. Follow with within a week for follow up. # Anemia ; HgB: 10.3-->9.6-->9.8 stable
[2019-02-11 17:42] VITALS: BP 138/61; PULSE 71; TEMP 98.9
== END 2019-02-11 19:05 | disposition home or self-care (01) | DRG 690 ==
LOC: JER 16:47 → JERBED 21:27 → OBSVTOIN 02-07 02:04 → J4S 02-07 19:16 → J7W 02-09 14:25
PROVIDERS: ADMIT Internal Medicine; ATTEND Internal Medicine
DX: N39.0 Urinary tract infection, site not specified (principal); Z68.41 Body mass index [BMI] 40.0-44.9, adult; I69.351 Hemiplegia and hemiparesis following cerebral infarction affecting right dominant side; B96.20 Unspecified Escherichia coli [E. coli] as the cause of diseases classified elsewhere; I10 Essential (primary) hypertension; K21.9 Gastro-esophageal reflux disease without esophagitis; Z96.651 Presence of right artificial knee joint; G20 Parkinson's disease; E66.8 Other obesity; D64.9 Anemia, unspecified; E88.09 Other disorders of plasma-protein metabolism, not elsewhere classified; I45.10 Unspecified right bundle-branch block; I25.10 Atherosclerotic heart disease of native coronary artery without angina pectoris; E04.1 Nontoxic single thyroid nodule; N13.30 Unspecified hydronephrosis; I12.9 Hypertensive chronic kidney disease with stage 1 through stage 4 chronic kidney disease, or unspecified chronic kidney disease; E11.22 Type 2 diabetes mellitus with diabetic chronic kidney disease; N18.9 Chronic kidney disease, unspecified; D17.0 Benign lipomatous neoplasm of skin and subcutaneous tissue of head, face and neck; Z85.51 Personal history of malignant neoplasm of bladder; Z86.718 Personal history of other venous thrombosis and embolism; Z86.73 Personal history of transient ischemic attack (TIA), and cerebral infarction without residual deficits; Z79.4 Long term (current) use of insulin
CPT/HCPCS: 36415; 70450-TC; 70490-TC; 71045-TC-FY; 71250-TC; 72050-TC-FY; 76775-TC; 76856-TC; 80048; 80053; 81003; 82272; 82962; 83690; 83735; 84100; 84484; 85025; 85027; 87086; 87186; 93005; 93010; 93970-TC; 99285-25; G0378; J0475; J7030

== ENCOUNTER 2019-03-14 21:30 | Inpatient (IN) | payer OTHER ==
--- NOTE | 2019-03-14 21:57 | PDOC ---
History of Present Illness - General Stated Complaint: ABDOMINAL PAIN Time Seen by Provider: 03/14/19 21:56 Past History - Past Medical History Allergies/Adverse Reactions: Allergies Allergy/AdvReac Type Severity Reaction Status Date / Time latex Allergy Verified 02/06/19 17:13 Home Medications: Ambulatory Orders Multivitamins [Multivit ([facility] Formulary)] 1 mg PO DAILY 05/08/17 Pregabalin [Lyrica -] 50 mg PO TID 05/08/17 Calcium Carbonate/Vitamin D3 [Calcium 600 + Vit D 400 Softgl] 600 mg PO BID Furosemide [Lasix -] 40 mg PO DAILY PRN 11/17/18 Brimonidine Tartrate/Timolol [Combigan 0.2%-0.5% Eye Drops] 1 drop OU TID Fluticasone Furoate [Arnuity Ellipta] 1 spray NS DAILY PRN 02/06/19 Insulin Lispro Protamin/Lispro [Humalog Mix 75-25 Kwikpen] 27 unit SQ HS Insulin Lispro Protamin/Lispro [Humalog Mix 75-25 Kwikpen] 30 unit SQ AM Lisinopril/Hydrochlorothiazide [Lisinopril-Hctz 10-12.5 mg Tab] 1 tablet PO DAILY 02/06/19 Carbidopa/Levodopa [Carbidopa-Levodopa 25-250 Tab] 1 each PO BID 03/15/19 Diphenhydramine [Benadryl 12.5 MG/5 ML Oral Solution -] 12.5 mg PO PRN 03/15/19 Omeprazole 40 mg PO BID 03/15/19 Pramipexole Dihydrochloride [Mirapex -] 0.5 mg PO BID 03/15/19 Anemia: No Asthma: No Cancer: Yes (BLADDER) Cardiac Disorders: No CVA: Yes (2017, SAH) COPD: No CHF: No Dementia: No Diabetes: Yes GI Disorders: Yes (GERD, SBO's) Disorders: Yes (ileal conduit) HTN: Yes Hypercholesterolemia: No Liver Disease: No Seizures: No Thyroid Disease: No - Surgical History Abdominal Surgery: Yes Appendectomy: No Cardiac Surgery: No Cholecystectomy: Yes Lung Surgery: No Neurologic Surgery: No Orthopedic Surgery: Yes (R KNEE REPLACEMENT w/ revisions) - Immunization History Immunization Up to Date: Yes - Suicide/Smoking/Psychosocial Hx Smoking Status: No Smoking History: Never smoked Have you smoked in the past 12 months: No Number of Cigarettes Smoked Daily: 0 Hx Alcohol Use: No Drug/Substance Use Hx: No Substance Use Type: None Hx Substance Use Treatment: No ED Treatment Course - LABORATORY CBC & Chemistry Diagram: 03/17/19 09:55 03/17/19 09:55 Medical Decision Making - Medical Decision Making HPI: Pt is a 78 y.o. F w/ PMHx. 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 The pain started acutely around 6pm, rated 10/10, and described as a "cutting." Patient has never had pain like this before. She has had five days of constipation for which she took Miralax today and had a small brown stool today without blood. Patient has passed flatulence today. History of abdominal surgeries include cholecystectomy, cystectomy, ectopic and . Reports nausea and an episode of retching and vomiting while EMS was present. Last colonoscopy was 5-10 years ago and was "fine." Patient reports normal po intake today. Urine in the cystectomy bag has been foul-smelling for the past week or so. Patient has had frequent UTIs. No fevers, chills, chest pain, or shortness of breath. PCP: not one particular provider, is seen at home by the [facility] Call group Urologist: Evangelista Gomez ROS: Constitutional: no fever, no chills HEENT: no throat pain, no dysphagia Cardiovascular: no chest pain, no palpitations Respiratory: no cough, no shortness of breath Gastrointestinal: +abdominal pain, +nausea, +vomiting, +constipation Genitourinary: no hematuria, +foul-smelling urine Musculoskeletal: +R. leg pain, +L. leg pain Skin: no rash, no itching Neurologic: no headache, no weakness PE: General: Awake, alert, and fully oriented, in no acute distress, morbidly obese Head: No signs of trauma Eyes: EOMI, sclera anicteric ENT: Dry mucus membranes Neck: Normal ROM, supple Lungs: Lungs clear, Normal breath sounds Cardio: Regular rhythm, S1 and S2 present Abdomen: Diffusely tender, most focal to LLQ. No guarding, no rebound, no masses. Urostomy bag in place. R. sided CVA tenderness Extremities: BLE tenderness no edema SKIN: Warm, Dry, normal turgor Neurologic: Cranial nerves II through XII grossly intact. Normal speech ED Courses/MDM: DDX including but not limited to diverticulitis, constipation, metastasis, SBO, ischemic colitis, pancreatitis Labs, EKG, CXR CTAP with IV contrast ordered. Will check Cr first. Morphine Zofran Fluids 03/14/19 21:57 Abd pain is improved, now rated 8/10. No nausea or vomiting. EKG: rate 65, QTc 445, NSR, RBBB also seen on EKG on 02/06/19 CBC WBC 8.3 K/mm3 (4.0-10.0) 03/14/19 22:45 RBC 3.88 M/mm3 (3.60-5.2) 03/14/19 22:45 Hgb 11.1 GM/dL (10.7-15.3) 03/14/19 22:45 Hct 34.7 % (32.4-45.2) 03/14/19 22:45 MCV 89.3 fl (80-96) 03/14/19 22:45 MCH 28.7 pg (25.7-33.7) 03/14/19 22:45 MCHC 32.1 g/dl (32.0-36.0) 03/14/19 22:45 RDW 16.4 % (11.6-15.6) H 03/14/19 22:45 Plt Count 235 K/MM3 (134-434) D 03/14/19 22:45 MPV 10.0 fl (7.5-11.1) D 03/14/19 22:45 Absolute Neuts (auto) 7.0 K/mm3 (1.5-8.0) 03/14/19 22:45 Neutrophils % 84.8 % (42.8-82.8) H 03/14/19 22:45 Lymphocytes % 8.7 % (8-40) D 03/14/19 22:45 Monocytes % 4.9 % (3.8-10.2) 03/14/19 22:45 Eosinophils % 0.9 % (0-4.5) D 03/14/19 22:45 Basophils % 0.7 % (0-2.0) D 03/14/19 22:45 Nucleated RBC % 0 % (0-0) 03/14/19 22:45 No anemia or leukocytosis CMP Sodium 141 mmol/L (136-145) 03/14/19 22:45 Chloride 112 mmol/L (98-107) H 03/14/19 22:45 Carbon Dioxide 25 mmol/L (21-32) 03/14/19 22:45 Anion Gap 4 MMOL/L (8-16) L 03/14/19 22:45 BUN 42.8 mg/dL (7-18) H 03/14/19 22:45 Creatinine 1.9 mg/dL (0.55-1.3) H 03/14/19 22:45 Est GFR (CKD-EPI)AfAm 28.56 03/14/19 22:45 Est GFR (CKD-EPI)NonAf 24.64 03/14/19 22:45 Random Glucose 134 mg/dL (74-106) H 03/14/19 22:45 Lactic Acid 0.8 mmol/L (0.4-2.0) 03/14/19 22:45 Calcium 8.6 mg/dL (8.5-10.1) 03/14/19 22:45 Total Bilirubin 0.4 mg/dL (0.2-1) 03/14/19 22:45 AST 29 U/L (15-37) 03/14/19 22:45 ALT 19 U/L (13-61) 03/14/19 22:45 Alkaline Phosphatase 190 U/L (45-117) H 03/14/19 22:45 Total Protein 7.4 g/dl (6.4-8.2) 03/14/19 22:45 Albumin 3.1 g/dl (3.4-5.0) L 03/14/19 22:45 Lipase 78 U/L (73-393) 03/14/19 22:45 Electrolytes unremarkable Elevated Cr, at patient's baseline of 2.0 Lipase normal No transaminitis CTAP without IV contrast ordered Pending UA 03/14/19 23:39 Call from lab stating K is 6.5, but slightly hemolyzed. Plan to repeat K. 03/14/19 23:45 Repeat BMP sent, Patient sent to CT Patient signed out to Dr. Galeana and night team 03/15/19 00:11 *DC/Admit/Observation/Transfer Diagnosis at time of Disposition: Urinary tract infection, SBO (small bowel obstruction), Hernia, Abdominal pain - Discharge Dispostion Condition at time of disposition: Guarded - Referrals - Patient Instructions - Post Discharge Activity
[2019-03-14] MEDS ORDERED: ONDANSETRON 4 MG/2 ML VIAL IVPUSH ONE (22:30)
[2019-03-14] MEDS ORDERED: SODIUM CHLORIDE 500 ML IV STA (22:30)
[2019-03-14] MEDS ORDERED: morphine CARPU-JECT 4 MG/1 ML DISP.SYRIN IVPUSH ONE (22:30)
[2019-03-14] MEDS ORDERED: ONDANSETRON 4 MG/2 ML VIAL ONE (22:35)
[2019-03-14] MEDS ORDERED: morphine SULFATE 4 MG/ML VIAL ONE (22:35)
--- NOTE | 2019-03-14 22:44 | PDOC ---
Documentation entered by Katarina Chris SCRIBE, acting as scribe for Enedina Smith DO. Enedina Smith, DO: This documentation has been prepared by the Aries benson Adrianna, SCRIBE, under my direction and personally reviewed by me in its entirety. I confirm that the documentation accurately reflects all work, treatment, procedures, and medical decision making performed by me. Attending Attestation - Resident Resident Name: Petra Jeong - ED Attending Attestation I have performed the following: I have examined & evaluated the patient, The case was reviewed & discussed with the resident, I agree w/resident's findings & plan, Exceptions are as noted - HPI HPI: The patient is a 78 year old female, with a significant PMH of bladder cancer ( s/p ileal conduit), GERD, multiple SBOs, DM, HTN, CVA, SAH, Parkinsons, CKD, and DVT (s/p IVC filter), who presents to the ED for evaluation of abdominal pain since earlier today. Patient complains of sharp, cutting abdominal pain that is a 10/10, felt diffusely, and is worse over the LLQ. Patient notes she had not had a bowel movement in five days, so she took MiraLax today and passed one small stool (without blood). She additionally reports foul smelling urine at this time. Denies fever, chills, chest pain, SOB. Allergies: Latex Past surgical history: Cholecystectomy, right knee total knee replacement, cystectomy, Social history: No reported PCP: Dr. Rufina Elizalde - Physicial Exam PE: Constitutional: +Obese. Awake, alert, oriented. No acute distress. Head: Normocephalic. Atraumatic Eyes: PERRL. EOMI. Conjunctivae are not pale. ENT: Mucous membranes are moist and intact. Posterior pharynx without exudates or erythema. Uvula midline. Neck: Supple. Full ROM. No lymphadenopathy. Cardiovascular: Regular rate. Regular rhythm. S1, S2 regular. Distal pulses are 2+ and symmetric. Pulmonary/Chest: +Diminished breath sounds at the bases bilaterally (possibly related to poor bdy habitus). No evidence of respiratory distress. Clear to auscultation bilaterally No wheezing, rales or rhonchi. Abdominal: +Obese. +Diffuse tenderness to palpation, worse at the RLQ/flank and LLQ/flank areas. Soft and nondistended. No rebound, guarding or rigidity. No organomegaly. No palpable masses. Good bowel sounds. Back: +Bilateral CVA tenderness. Musculoskeletal: +Diffusely tender palpation to the bilateral lower extremities (possibly secondary to neuropathy). No edema. No cyanosis. No clubbing. Full range of motion in all extremities.. Radial/pedal pulses are intact and 2+ bilaterally Skin: Skin is warm and dry. No petechiae. No purpura. Neurological: Alert and oriented to person, place, and time. Cranial nerves II -XII are grossly intact. Normal speech. Strength is grossly symmetric. No sensory deficits. Psychiatric: Good eye contact. Normal interaction, affect and behavior. - Medical Decision Making 03/14/19 22:42 I, Dr. Enedina Smith, DO, attest that this document has been prepared under my direction and personally reviewed by me in its entirety. I further attest, that it accurately reflects all work, treatment, procedures and medical decision -making performed by me. 03/14/19 22:42 78yo female with diffuse abd pain - n/v and constipation -pt was constipated, took miralax and had 1 hard and then 1 soft bm, no blood -had 1 episode of n/v in the ED - nbnb -pt with diffuse abd pain and foul smell to urine -b/l lower quad ttp -urostomy with sediment and dark yellow urine in the bag -will send labs, ua, ucx, ct abd/pelvis -morphine and zofran for pain/nausea -will monitor and reassess 03/14/19 23:35 pt with ckd 03/14/19 23:35 no elevated wbc 03/15/19 00:34 cxr nonacute 03/15/19 00:58 pt with uti prior culture sensitive- ecoli and enterococcus will start rocephin and vanco 03/15/19 01:32 pt with hernia - sbo from bowel in the hernia -pt passing gas and had a bm today -attempted to reduce the hernia - some bowel reduced -resident discussed the case with dr. white who will see the patient in consult -resident will place ngt family updated, chronic hernia with recurrent sbo PMD [facility] for home visits microblog sent to [email or web address] for admission 03/15/19 01:38 case discussed with ALICIAADAIR who accepts pt to service Heart Score/ECG Review - ECG Intrepretation Comment:: 03/14/19 23:24 sinus at 65, rbbb, l axis, no acute st/t wave findings ED Treatment Course - LABORATORY CBC & Chemistry Diagram: 03/14/19 22:45 03/15/19 00:00 - ADDITIONAL ORDERS Additional order review: Laboratory Results 03/15/19 03/14/19 03/14/19 00:00 22:45 22:45 PT with INR 12.40 INR 1.05 PTT (Actin FS) Sodium 142 Potassium 5.5 H Chloride 113 H Carbon Dioxide 25 Anion Gap 4 L BUN 43.2 H Creatinine 1.9 H Est GFR (CKD-EPI)AfAm 28.56 Est GFR (CKD-EPI)NonAf 24.64 Random Glucose 138 H Lactic Acid Calcium 8.4 L Total Bilirubin AST ALT Alkaline Phosphatase Total Protein Albumin Lipase 78 Urine Color Urine Appearance Urine pH Ur Specific [place] Urine Protein Urine Glucose (UA) Urine Ketones Urine Blood Urine Nitrite Urine Bilirubin Urine Urobilinogen Ur Leukocyte Esterase Urine WBC (Auto) Urine RBC (Auto) U Pathogenic Cast Auto U Epithel Cells (Auto) Urine Bacteria (Auto) 03/14/19 03/14/19 03/14/19 22:45 22:45 22:45 PT with INR INR PTT (Actin FS) 33.9 Sodium 141 Potassium 6.3 H* Chloride 112 H Carbon Dioxide 25 Anion Gap 4 L BUN 42.8 H Creatinine 1.9 H Est GFR (CKD-EPI)AfAm 28.56 Est GFR (CKD-EPI)NonAf 24.64 Random Glucose 134 H Lactic Acid 0.8 Calcium 8.6 Total Bilirubin 0.4 AST 29 ALT 19 Alkaline Phosphatase 190 H Total Protein 7.4 Albumin 3.1 L Lipase Urine Color Urine Appearance Urine pH Ur Specific [place] Urine Protein Urine Glucose (UA) Urine Ketones Urine Blood Urine Nitrite Urine Bilirubin Urine Urobilinogen Ur Leukocyte Esterase Urine WBC (Auto) Urine RBC (Auto) U Pathogenic Cast Auto U Epithel Cells (Auto) Urine Bacteria (Auto) 03/14/19 20:45 PT with INR INR PTT (Actin FS) Sodium Potassium Chloride Carbon Dioxide Anion Gap BUN Creatinine Est GFR (CKD-EPI)AfAm Est GFR (CKD-EPI)NonAf Random Glucose Lactic Acid Calcium Total Bilirubin AST ALT Alkaline Phosphatase Total Protein Albumin Lipase Urine Color Yellow Urine Appearance Cloudy Urine pH 5.5 Ur Specific [place] 1.013 Urine Protein Trace Urine Glucose (UA) Negative Urine Ketones Negative Urine Blood 4+ H Urine Nitrite Positive H Urine Bilirubin Negative Urine Urobilinogen 0.2 Ur Leukocyte Esterase 4+ H Urine WBC (Auto) 77.9 Urine RBC (Auto) 27.5 U Pathogenic Cast Auto U Epithel Cells (Auto) 1.2 Urine Bacteria (Auto) 3253 03/14/19 22:45 RBC 3.88 MCV 89.3 MCHC 32.1 RDW 16.4 H MPV 10.0 D Neutrophils % 84.8 H Lymphocytes % 8.7 D Monocytes % 4.9 Eosinophils % 0.9 D Basophils % 0.7 D - RADIOLOGY Radiograph Interpretation: EXAM: CT ABDOMEN AND PELVIS WITHOUT CONTRAST REASON FOR EXAM: Abdominal pain IMPRESSION: Large left para-midline ventral hernia containing several loops of bowel which appear strangulated and site of for small bowel obstruction. No pneumoperitoneum or pneumatosis. Three ventral hernias as described. Bladder resection with urinary diversion changes. No evidence of obstructive uropathy Reported by: Noemí Salmeron D.O 03/15/2019 01:02 EST - Medications Given in the ED: ED Medications Discontinued Medications Generic Name Dose Route Start Last Admin Trade Name Freq PRN Reason Stop Dose Admin Sodium Chloride 500 mls @ 500 mls/hr 03/14/19 22:30 03/14/19 22:59 Normal Saline - IV 03/14/19 23:29 500 mls/hr ASDIR STA Administration Morphine Sulfate 4 mg 03/14/19 22:30 03/14/19 22:59 Morphine Injection - IVPUSH 03/14/19 22:31 4 mg ONCE ONE Administration Ondansetron HCl 4 mg 03/14/19 22:30 03/14/19 22:59 Zofran Injection IVPUSH 03/14/19 22:31 4 mg ONCE ONE Administration
[2019-03-14 23:02] LABS: BASO % 0.7 % (0-2.0); EOS % 0.9 % (0-4.5); HEMATOCRIT 34.7 % (32.4-45.2); HEMOGLOBIN 11.1 GM/dL (10.7-15.3); LYMPH % 8.7 % (8-40); MCH 28.7 pg (25.7-33.7); MCHC 32.1 g/dl (32.0-36.0); MEAN CELL VOLUME 89.3 fl (80-96); MONO % 4.9 % (3.8-10.2); NEUT % 84.8 % (42.8-82.8); PLATELET COUNT 235 K/MM3 (134-434); RBC 3.88 M/mm3 (3.60-5.2); RDW 16.4 % (11.6-15.6); WHITE BLOOD COUNT 8.3 K/mm3 (4.0-10.0)
[2019-03-14 23:32] LABS: ALBUMIN 3.1 g/dl (3.4-5.0); BILIRUBIN,TOTAL 0.4 mg/dL (0.2-1); BLOOD UREA NITROGEN 42.8 mg/dL (7-18); CALCIUM 8.6 mg/dL (8.5-10.1); CREATININE 1.9 mg/dL (0.55-1.3); TOT PROT 7.4 g/dl (6.4-8.2)
[2019-03-14 23:40] LABS: POTASSIUM 6.3 mmol/L (3.5-5.1)
[2019-03-14 23:44] LABS: INR 1.05 (0.83-1.09); PROTHROMBIN TIME (PATIENT) 12.4 SEC (9.7-13.0)
--- NOTE | 2019-03-15 00:12 | PDOC ---
*Physical Exam - Vital Signs Last Vital Signs Temp Pulse Resp BP Pulse Ox 98.4 F 75 20 133/71 99 03/14/19 22:14 03/14/19 22:14 03/14/19 22:14 03/14/19 22:14 03/14/19 22:14 <Asif Galeana - Last Filed: 03/14/19 23:54> - Vital Signs Last Vital Signs Temp Pulse Resp BP Pulse Ox 98.4 F 75 20 133/71 99 03/14/19 22:14 03/14/19 22:14 03/14/19 22:14 03/14/19 22:14 03/14/19 22:14 <Enedina Smith - Last Filed: 03/15/19 01:40> ED Treatment Course - LABORATORY CBC & Chemistry Diagram: 03/14/19 22:45 03/14/19 22:45 - ADDITIONAL ORDERS Additional order review: Laboratory Results 03/14/19 03/14/19 03/14/19 22:45 22:45 22:45 PT with INR 12.40 INR 1.05 PTT (Actin FS) Sodium Potassium Chloride Carbon Dioxide Anion Gap BUN Creatinine Est GFR (CKD-EPI)AfAm Est GFR (CKD-EPI)NonAf Random Glucose Lactic Acid 0.8 Calcium Total Bilirubin AST ALT Alkaline Phosphatase Total Protein Albumin Lipase 78 03/14/19 03/14/19 22:45 22:45 PT with INR INR PTT (Actin FS) 33.9 Sodium 141 Potassium 6.3 H* Chloride 112 H Carbon Dioxide 25 Anion Gap 4 L BUN 42.8 H Creatinine 1.9 H Est GFR (CKD-EPI)AfAm 28.56 Est GFR (CKD-EPI)NonAf 24.64 Random Glucose 134 H Lactic Acid Calcium 8.6 Total Bilirubin 0.4 AST 29 ALT 19 Alkaline Phosphatase 190 H Total Protein 7.4 Albumin 3.1 L Lipase 03/14/19 22:45 RBC 3.88 MCV 89.3 MCHC 32.1 RDW 16.4 H MPV 10.0 D Neutrophils % 84.8 H Lymphocytes % 8.7 D Monocytes % 4.9 Eosinophils % 0.9 D Basophils % 0.7 D - Medications Given in the ED: ED Medications Discontinued Medications Generic Name Dose Route Start Last Admin Trade Name Freq PRN Reason Stop Dose Admin Sodium Chloride 500 mls @ 500 mls/hr 03/14/19 22:30 03/14/19 22:59 Normal Saline - IV 03/14/19 23:29 500 mls/hr ASDIR STA Administration Morphine Sulfate 4 mg 03/14/19 22:30 03/14/19 22:59 Morphine Injection - IVPUSH 03/14/19 22:31 4 mg ONCE ONE Administration Ondansetron HCl 4 mg 03/14/19 22:30 03/14/19 22:59 Zofran Injection IVPUSH 03/14/19 22:31 4 mg ONCE ONE Administration <Asif Galeana - Last Filed: 03/14/19 23:54> - LABORATORY CBC & Chemistry Diagram: 03/14/19 22:45 03/15/19 00:00 - ADDITIONAL ORDERS Additional order review: Laboratory Results 03/15/19 03/14/19 03/14/19 00:00 22:45 22:45 PT with INR 12.40 INR 1.05 PTT (Actin FS) Sodium 142 Potassium 5.5 H Chloride 113 H Carbon Dioxide 25 Anion Gap 4 L BUN 43.2 H Creatinine 1.9 H Est GFR (CKD-EPI)AfAm 28.56 Est GFR (CKD-EPI)NonAf 24.64 Random Glucose 138 H Lactic Acid Calcium 8.4 L Total Bilirubin AST ALT Alkaline Phosphatase Total Protein Albumin Lipase 78 Urine Color Urine Appearance Urine pH Ur Specific [place] Urine Protein Urine Glucose (UA) Urine Ketones Urine Blood Urine Nitrite Urine Bilirubin Urine Urobilinogen Ur Leukocyte Esterase Urine WBC (Auto) Urine RBC (Auto) U Pathogenic Cast Auto U Epithel Cells (Auto) Urine Bacteria (Auto) 03/14/19 03/14/19 03/14/19 22:45 22:45 22:45 PT with INR INR PTT (Actin FS) 33.9 Sodium 141 Potassium 6.3 H* Chloride 112 H Carbon Dioxide 25 Anion Gap 4 L BUN 42.8 H Creatinine 1.9 H Est GFR (CKD-EPI)AfAm 28.56 Est GFR (CKD-EPI)NonAf 24.64 Random Glucose 134 H Lactic Acid 0.8 Calcium 8.6 Total Bilirubin 0.4 AST 29 ALT 19 Alkaline Phosphatase 190 H Total Protein 7.4 Albumin 3.1 L Lipase Urine Color Urine Appearance Urine pH Ur Specific [place] Urine Protein Urine Glucose (UA) Urine Ketones Urine Blood Urine Nitrite Urine Bilirubin Urine Urobilinogen Ur Leukocyte Esterase Urine WBC (Auto) Urine RBC (Auto) U Pathogenic Cast Auto U Epithel Cells (Auto) Urine Bacteria (Auto) 03/14/19 20:45 PT with INR INR PTT (Actin FS) Sodium Potassium Chloride Carbon Dioxide Anion Gap BUN Creatinine Est GFR (CKD-EPI)AfAm Est GFR (CKD-EPI)NonAf Random Glucose Lactic Acid Calcium Total Bilirubin AST ALT Alkaline Phosphatase Total Protein Albumin Lipase Urine Color Yellow Urine Appearance Cloudy Urine pH 5.5 Ur Specific [place] 1.013 Urine Protein Trace Urine Glucose (UA) Negative Urine Ketones Negative Urine Blood 4+ H Urine Nitrite Positive H Urine Bilirubin Negative Urine Urobilinogen 0.2 Ur Leukocyte Esterase 4+ H Urine WBC (Auto) 77.9 Urine RBC (Auto) 27.5 U Pathogenic Cast Auto U Epithel Cells (Auto) 1.2 Urine Bacteria (Auto) 3253 03/14/19 22:45 RBC 3.88 MCV 89.3 MCHC 32.1 RDW 16.4 H MPV 10.0 D Neutrophils % 84.8 H Lymphocytes % 8.7 D Monocytes % 4.9 Eosinophils % 0.9 D Basophils % 0.7 D - Medications Given in the ED: ED Medications Discontinued Medications Generic Name Dose Route Start Last Admin Trade Name Freq PRN Reason Stop Dose Admin Sodium Chloride 500 mls @ 500 mls/hr 03/14/19 22:30 03/14/19 22:59 Normal Saline - IV 03/14/19 23:29 500 mls/hr ASDIR STA Administration Ceftriaxone Sodium 1 gm/ 100 mls @ 200 mls/hr 03/15/19 00:57 03/15/19 01:20 Dextrose IVPB 03/15/19 01:26 200 mls/hr ONCE ONE Administration Morphine Sulfate 4 mg 03/14/19 22:30 03/14/19 22:59 Morphine Injection - IVPUSH 03/14/19 22:31 4 mg ONCE ONE Administration Ondansetron HCl 4 mg 03/14/19 22:30 03/14/19 22:59 Zofran Injection IVPUSH 03/14/19 22:31 4 mg ONCE ONE Administration Vancomycin HCl 1,000 mg 03/15/19 00:57 03/15/19 01:20 Vancomycin (Pre-Docked) IVPB 03/15/19 00:58 1,000 mg ONCE ONE Administration Protocol <Enedina Smith - Last Filed: 03/15/19 01:40> Medical Decision Making - Medical Decision Making 03/14/19 23:54 s/o Dr Jeong CKD abdominal pain 05/30, BM today after miralax last colonoscopy 5 years ago, normal passing gas diffusely tender pending CTAP and repeat BMP <Asif Galeana - Last Filed: 03/14/19 23:54> *DC/Admit/Observation/Transfer <Asif Galeana - Last Filed: 03/14/19 23:54> - Discharge Dispostion Decision to Admit order: Yes <Enedina Smith - Last Filed: 03/15/19 01:40> Diagnosis at time of Disposition: Urinary tract infection, SBO (small bowel obstruction), Hernia, Abdominal pain - Discharge Dispostion Condition at time of disposition: Guarded
[2019-03-15 00:33] LABS: URINE APPEARANCE CLOUDY; URINE BILIRUBIN NEGATIVE (NEGATIVE); URINE COLOR YELLOW; URINE GLUCOSE (UA) NEGATIVE (NEGATIVE); URINE KETONE NEGATIVE (NEGATIVE)
[2019-03-15 00:34] LABS: EPI CELLS 1.2 /HPF (0-5/HPF); PH,URINE 5.5 (5.0-8.0); URINE LEUK ESTERASE 4+ (NEGATIVE); URINE NITRITE POSITIVE (NEGATIVE); URINE PROTEIN TRACE (NEGATIVE); URINE RBC 27.5 /hpf (0-4); URINE UROBILINOGEN 0.2 mg/dL (0.2-1.0); URINE WBC 77.9 /hpf (0-5)
[2019-03-15 00:35] LABS: URINE BACTERIA 3253 /hpf (NEGATIVE)
[2019-03-15 00:38] LABS: BLOOD UREA NITROGEN 43.2 mg/dL (7-18); CALCIUM 8.4 mg/dL (8.5-10.1); CREATININE 1.9 mg/dL (0.55-1.3); POTASSIUM 5.5 mmol/L (3.5-5.1)
[2019-03-15] MEDS ORDERED: CEFTRIAXONE 1 GM in DEXTROSE 5%-WATER - 100 ML IVPB ONE (00:57)
[2019-03-15] MEDS ORDERED: VANCOMYCIN 1 GM in D5W (PRE-DOCKED) 1,000 MG/250 ML IVPB ONE (00:57)
--- NOTE | 2019-03-15 01:42 | HP ---
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 Pain occurred at ~6pm then had loss of appetite, food- containing emesis. Prior, had dinner at ~5pm w/o issues. Had small formed BM in he AM after 4-5d of constipation. Has had ~1week of foul, dark urine in urostomy bag. Endorses flatus since onset of abd pain. Has had h/o of bowel obstructions that prompted hospitalization but no surgical intervention was pursued due to comorbidities. Since the ED presentation, belching and nausea have subsided. Abd pain improved after morphine. Has had history of urinary infections. Denies F/C/cp/sob/diarrhea. Endorses weeks of nonproductive cough. SOB w/ lying supine, uses 2 pillows at night. Changes urostomy bag q3d. Ambulates w/ walker at baseline. Able to achieve ALDs independently. Lives in [place] w/ daughter. ER course was notable for: (1) morphine administration -- pain improved (2) CT A/P: prelim read of dilated proximal small bowel, Left paramidline-hernia Recent Travel: none PAST MEDICAL HISTORY: HTN, GERD, IDDM, bladder CA(s/p neoadjuvant radiation, radical cystectomy, creation of ieloconduit), hemorrhage stroke(2017 w/ residual RUE weakness), h/o DVT(formerly on warfarin, stopped due to stroke), IVC filter(placed years prior to stroke), h/o of chronic ventral hernia PAST SURGICAL HISTORY: open cholecystectomy() radial cystectomy + ileal conduit creation Social History: Smoking: denies Alcohol: denies Drugs: denies Family History: father of unspecified CA, mother had DM Allergies latex Allergy (Verified 02/06/19 17:13) HOME MEDICATIONS: Home Medications Medication Instructions Recorded Multivitamins [Multivit ([facility] 1 mg PO DAILY 05/08/17 Formulary)] Pregabalin [Lyrica -] 50 mg PO TID 05/08/17 Calcium Carbonate/Vitamin D3 600 mg PO BID 03/15/18 [Calcium 600 + Vit D 400 Softgl] Furosemide [Lasix -] 40 mg PO DAILY 11/17/18 Brimonidine Tartrate/Timolol 1 drop OU TID 02/06/19 [Combigan 0.2%-0.5% Eye Drops] Fluticasone Furoate [Arnuity 1 spray NS DAILY 02/06/19 Ellipta] Insulin Lispro Protamin/Lispro 27 unit SQ HS 02/06/19 [Humalog Mix 75-25 Kwikpen] Insulin Lispro Protamin/Lispro 30 unit SQ AM 02/06/19 [Humalog Mix 75-25 Kwikpen] Lisinopril/Hydrochlorothiazide 1 tablet PO DAILY 02/06/19 [Lisinopril-Hctz 10-12.5 mg Tab] REVIEW OF SYSTEMS CONSTITUTIONAL: loss 19lbs in 6mo, loss of appetite Absent: fever, chills, diaphoresis, generalized weakness, malaise HEENT: Absent: rhinorrhea, nasal congestion, throat pain, throat swelling, difficulty swallowing, visual changes CARDIOVASCULAR: Absent: chest pain, syncope, palpitations, irregular heart rate, lightheadedness , peripheral edema RESPIRATORY: orthopnea(sleeps w/ 2pillows) Absent: cough, shortness of breath, dyspnea with exertion, wheezing, stridor, hemoptysis GASTROINTESTINAL: abdominal pain, abdominal distension, nausea, vomiting Absent: diarrhea, constipation, melena, hematochezia GENITOURINARY: foul smelling urine Absent: hematuria, flank pain, genital pain MUSCULOSKELETAL: posterior neck pain Absent: myalgia, arthralgia, joint swelling, back pain SKIN: Absent: rash, itching, pallor HEMATOLOGIC/IMMUNOLOGIC: Absent: lymphadenopathy, frequent "UTIs" ENDOCRINE: unexplained weight loss(19lbs in 6mo) Absent: unexplained weight gain NEUROLOGIC: Absent: headache, focal weakness or paresthesias, dizziness, unsteady gait, seizure, mental status changes, bladder incontinence PSYCHIATRIC: Absent: anxiety, depression PHYSICAL EXAMINATION Vital Signs - 24 hr 03/14/19 22:14 Temperature 98.4 F Pulse Rate 75 Respiratory 20 Rate Blood Pressure 133/71 O2 Sat by Pulse 99 Oximetry (%) GENERAL: Awake, alert, and fully oriented, in no acute distress. HEAD: no signs of trauma. EYES: sclera anicteric, conjunctiva clear. EARS, NOSE, THROAT: Ears normal, nares patent, oropharynx clear without exudates. Moist mucous membranes. NECK: Normal range of motion, supple without lymphadenopathy, JVD. Posterior neck with mobile 3-4cm subcutaneous mass with overlying induration. Induration to diffuse areas of posterior upper back LUNGS: Breath sounds equal, clear to auscultation bilaterally. No wheezes, and no crackles. No accessory muscle use. HEART: Regular rate and rhythm, normal S1 and S2 without murmur, rub or gallop. ABDOMEN: Soft, not distended, normoactive bowel sounds, no guarding, no rebound. Nontympanic. Umbilical bulge. LLQ abdominal bulge >10cm, nonreducibe, TTP, bowel sound auscultated, no overlying skin changes. RLQ w/ pink, patent stoma; parastomal bulge >5-10cm in superomedial side. Clear yellow urine w/ mucus precipitant in urinary drainage bag MUSCULOSKELETAL: Normal range of motion at all joints. No bony deformities or tenderness UPPER EXTREMITIES: 2+ pulses, warm, well-perfused. No cyanosis. No clubbing. No peripheral edema. LOWER EXTREMITIES: 2+ pulses, warm, well-perfused. BLE tenderness of anterior and posterior surfaces . No peripheral edema. NEUROLOGICAL: Normal speech. PSYCHIATRIC: Cooperative. Good eye contact. Appropriate mood and affect. SKIN: Warm, dry, normal turgor, no rashes or lesions noted, normal capillary refill. Laboratory Results - last 24 hr 03/14/19 03/14/19 03/14/19 20:45 22:45 22:45 WBC 8.3 RBC 3.88 Hgb 11.1 Hct 34.7 MCV 89.3 MCH 28.7 MCHC 32.1 RDW 16.4 H Plt Count 235 D MPV 10.0 D Absolute Neuts (auto) 7.0 Neutrophils % 84.8 H Lymphocytes % 8.7 D Monocytes % 4.9 Eosinophils % 0.9 D Basophils % 0.7 D Nucleated RBC % 0 PT with INR INR PTT (Actin FS) 33.9 Sodium Potassium Chloride Carbon Dioxide Anion Gap BUN Creatinine Est GFR (CKD-EPI)AfAm Est GFR (CKD-EPI)NonAf Random Glucose Lactic Acid Calcium Total Bilirubin AST ALT Alkaline Phosphatase Total Protein Albumin Lipase Urine Color Yellow Urine Appearance Cloudy Urine pH 5.5 Ur Specific [place] 1.013 Urine Protein Trace Urine Glucose (UA) Negative Urine Ketones Negative Urine Blood 4+ H Urine Nitrite Positive H Urine Bilirubin Negative Urine Urobilinogen 0.2 Ur Leukocyte Esterase 4+ H Urine WBC (Auto) 77.9 Urine RBC (Auto) 27.5 U Pathogenic Cast Auto U Epithel Cells (Auto) 1.2 Urine Bacteria (Auto) 3253 03/14/19 03/14/19 03/14/19 22:45 22:45 22:45 WBC RBC Hgb Hct MCV MCH MCHC RDW Plt Count MPV Absolute Neuts (auto) Neutrophils % Lymphocytes % Monocytes % Eosinophils % Basophils % Nucleated RBC % PT with INR INR PTT (Actin FS) Sodium 141 Potassium 6.3 H* Chloride 112 H Carbon Dioxide 25 Anion Gap 4 L BUN 42.8 H Creatinine 1.9 H Est GFR (CKD-EPI)AfAm 28.56 Est GFR (CKD-EPI)NonAf 24.64 Random Glucose 134 H Lactic Acid 0.8 Calcium 8.6 Total Bilirubin 0.4 AST 29 ALT 19 Alkaline Phosphatase 190 H Total Protein 7.4 Albumin 3.1 L Lipase 78 Urine Color Urine Appearance Urine pH Ur Specific [place] Urine Protein Urine Glucose (UA) Urine Ketones Urine Blood Urine Nitrite Urine Bilirubin Urine Urobilinogen Ur Leukocyte Esterase Urine WBC (Auto) Urine RBC (Auto) U Pathogenic Cast Auto U Epithel Cells (Auto) Urine Bacteria (Auto) 03/14/19 03/15/19 22:45 00:00 WBC RBC Hgb Hct MCV MCH MCHC RDW Plt Count MPV Absolute Neuts (auto) Neutrophils % Lymphocytes % Monocytes % Eosinophils % Basophils % Nucleated RBC % PT with INR 12.40 INR 1.05 PTT (Actin FS) Sodium 142 Potassium 5.5 H Chloride 113 H Carbon Dioxide 25 Anion Gap 4 L BUN 43.2 H Creatinine 1.9 H Est GFR (CKD-EPI)AfAm 28.56 Est GFR (CKD-EPI)NonAf 24.64 Random Glucose 138 H Lactic Acid Calcium 8.4 L Total Bilirubin AST ALT Alkaline Phosphatase Total Protein Albumin Lipase Urine Color Urine Appearance Urine pH Ur Specific [place] Urine Protein Urine Glucose (UA) Urine Ketones Urine Blood Urine Nitrite Urine Bilirubin Urine Urobilinogen Ur Leukocyte Esterase Urine WBC (Auto) Urine RBC (Auto) U Pathogenic Cast Auto U Epithel Cells (Auto) Urine Bacteria (Auto) ASSESSMENT/PLAN: 78F pmh of HTN, GERD, IDDM, bladder CA(s/p neoadjuvant radiation, radical cystectomy, creation of ieloconduit), hemorrhage stroke(2017 w/ residual RUE weakness), h/o DVT(formerly on warfarin, stopped due to stroke), IVC filter( placed years prior to stroke), h/o of chronic ventral hernia presents to [facility]-ED w/ complaint of severe diffuse abd pain likely 2/2 incarcerated but not strangulated L-sided ventral hernia causing a SBO(likely partial) # SBO(?partial) 2/2 incarcerated L-sided chronic ventral hernia > CT A/P(03/14/19): prelim read - hiatal hernia, IVC filter noted, dilated proximal small bowel, Left para-midline hernia, sigmoid diverticulosis - fu CT A/P final read - strict NPO - consider IVF - serial abd exams - consider NGT decompression if worsen symptomatically - zofran PRN for nausea - Surgery(Nikki) consulted, will eval in AM # recurrent complicated UTI > UA(03/14/19): blood 4+, nitrite +, LE 4+, WBC 77.9 - abx: ceftriaxone # hyperkalemia likely 2/2 CKD > K 5.6 - D50, insulin - fu AM BMP NEURO # h/o of hemorrhagic CVA # risk of hospital-acquired delirium - bundled care to minimize disturbances - cw monitoring RESPIR - no acute issues CARDIO # chronic HTN - hydralazine PRN # orthopnea possible 2/2 Pulmonary HTN > Echo(11/19/18): EF 55-60%, PASP 41mmHg, no wall motion abn - consider Pulmonary w/u GI # GERD 2/2 hiatal hernia - cw home pantoprazole FEN - NPO -- for possible SBO - consider IVF # recurrent complicated UTI -- addressed above # CKD > Cr 1.8 - consider gentle IVF # h/o bladder cancer - I/Os - urostomy care ENDO # IDDM - SSI - cw POCT BS DVT Prophylaxis - [facility] Willi Freeman, DO PGY-1 Medicine, PM-Float pager [phone] 03/15/19 Visit type - Emergency Visit Emergency Visit: Yes ED Registration Date: 03/15/19 Care time: The patient presented to the Emergency Department on the above date and was hospitalized for further evaluation of their emergent condition. - New Patient This patient is new to me today: Yes Date on this admission: 03/15/19 - Critical Care Critical Care patient: No ATTENDING PHYSICIAN STATEMENT I saw and evaluated the patient. I reviewed the resident's note and discussed the case with the resident. I agree with the resident's findings and plan as documented. SUBJECTIVE: OBJECTIVE: ASSESSMENT AND PLAN:
--- NOTE | 2019-03-15 02:21 | PN ---
Teaching Attending Note ATTENDING PHYSICIAN STATEMENT I saw and evaluated the patient. I reviewed the resident's note and discussed the case with the resident. I agree with the resident's findings and plan as documented. Seen and examined; please refer to resident note for further historical information. Presents with abdominal pain/nausea/NBNB vomitus after meal feeling similar to prior SBOs. Passed gas en route to ER; foul smelling urine from urostomy bag with history of UTIs (micro with EF, E. coli). ER spoke to Dr. Jordan who will see her in the AM. VS, labs, imaging reviewed NAD, AAO, resting in bed NC AT EOMI PERRLA RRR s1/2 Tender with mild distention, hypoactive but present bowel sounds Lungs CTAB, w/ sym exp Prelim CT reviewed 3 ventral hernias; cephalad is fat containing, uncomplicated. Below it is a larger hernia with loops of bowel appearing twisted that may be the obstruction point. Proximal to the point is dilated small bowel, There is also another large ventral hernia migrating L of midline and a R-para stomal hernia ASSESSMENT AND PLAN: Patient presents with likely SBO 2/2 strangulated bowel in ventral hernia as well as acute cystitis. We will make her NPO, await surgical eval, provide pain control with dilaudid, and convert her protonix to PO and hold her home ASA. NGT to LIWS (being placed in ER). Her home BP med will be held and we can use PRN hydralazine for BP control if SBP >160. IVF with LR @ 100. For the cystitis we can continue ceftriaxone and followup vancomycin level (1g given in ER); consult her ID specialist. Last admit was DC on PO Vantin. No fevers; neutrophilia on CBC but could be reactive. Followup blood and urine cultures. # Likely SBO/Strangulated bowel in large L-paramidline ventral hernia. # Acute Cystitis w/ hematuria # NATASHA on CKD # Hx Bladder CA s/p radical cystectomy/urostomy (2004) # SAH (2017; with residual R-sided weakness, R-facial droop) # Hx DVTs s/p IVC filter, not on AC # GERD # Parkinson's Disease # Hx Thyroid Nodule (diagnosed last admit, 1cm) # Hx DM # Chronic normocytic anemia, now normal Hb likely 2/2 hemoconcentration DVT px: Hep SQ Full Code
[2019-03-15] MEDS ORDERED: hydrALAZINE HCL 20 MG/ML VIAL IVPUSH PRN ×2 (02:38→02:55)
[2019-03-15] MEDS ORDERED: LACTATED RINGERS SOLUTION 1,000 ML IV SCH (02:45)
[2019-03-15] MEDS ORDERED: SODIUM CHLORIDE 1,000 ML IV SCH ×2 (03:00→15:15)
[2019-03-15] MEDS ORDERED: CALCIUM GLUCONATE 10% - 1,000 MG/10 ML VIAL IVPUSH ONE (03:01)
[2019-03-15] MEDS ORDERED: INSULIN REGULAR HUMAN 100 UNITS/ML *VIAL IVPUSH ONE ×2 (03:01→04:57)
[2019-03-15] MEDS ORDERED: DEXTROSE 50%-WATER - 25 GM/50 ML VIAL IVPUSH ONE ×2 (03:02→04:56)
[2019-03-15] MEDS ORDERED: DEXTROSE 50%-WATER 25 GM/50 ML DISP.SYRIN ONE ×3 (03:15→06:26)
[2019-03-15] MEDS ORDERED: CALCIUM GLUCONATE 10% - 1,000 MG/10 ML VIAL ONE (03:15)
[2019-03-15] MEDS ORDERED: INSULIN REGULAR HUMAN 100 UNITS/ML *VIAL ONE (03:16)
[2019-03-15 04:18] LABS: BLOOD UREA NITROGEN 38.9 mg/dL (7-18); CALCIUM 8.7 mg/dL (8.5-10.1); CREATININE 1.8 mg/dL (0.55-1.3); POTASSIUM 5.6 mmol/L (3.5-5.1)
[2019-03-15 05:04] VITALS: BMI 45.7
[2019-03-15] MEDS ORDERED: INSULIN (NOVOLOG) ASPART 100 UNITS/ML 10ML VIAL ONE (05:55)
[2019-03-15] MEDS ORDERED: DEXTROSE 50%-WATER 25 GM/50 ML DISP.SYRIN IVPUSH ONE ×2 (06:00→06:18)
[2019-03-15] MEDS: INSULIN SLIDING SCALE (NOVOLOG) 1 VIAL SQ SCH ×4 (06:08→21:52)
[2019-03-15] MEDS ORDERED: DEXTROSE 5%-WATER - 1,000 ML IV SCH (08:15)
--- NOTE | 2019-03-15 08:38 | CON.ID ---
Consult Consult Specialty:: infectious diseases Referred by:: Nichole Reason for Consultation:: pankaj,int obstruction - History of Present Illness Chief Complaint: abd pain,foul urine History of Present Illness: 78 y.o. F w/ PMHx. of HTN, IDDM, Bladder Ca (s/p radical cystectomy and urostomy placement 2004), SAH(2017-residual right sided weakness and, right sided facial droop with smile), DVTs (s/p IVC Filter, not on AC), CKD, GERD, and Parkinson's Disease coming to the hospital because of abd pain mainly left lower quadrant which has been going for 4-6 days .nausea and vomiting ,with bringing out food material says her urine in the bag had been foul smelling currently patient with ng tube in place patients work up was send and surgery on case - History Source History Provided By: Patient Limitations to Obtaining History: No Limitations - Past Medical History Cardio/Vascular: Yes: AFIB, HTN Gastrointestinal: Yes: GERD Hepatobiliary: Yes: Cholecystitis Renal/: Yes: Cancer (Bladder cancer) Musculoskeletal: Yes: Osteoarthritis - Past Surgical History Past Surgical History: Yes: Cholecystectomy (open), Ileal Conduit, Joint Replacement (R knee) - Alcohol/Substance Use Hx Alcohol Use: No History of Substance Use: reports: None - Smoking History Smoking history: Never smoked Have you smoked in the past 12 months: No Aproximately how many cigarettes per day: 0 Home Medications - Allergies Allergies/Adverse Reactions: Allergies Allergy/AdvReac Type Severity Reaction Status Date / Time latex Allergy Verified 02/06/19 17:13 - Home Medications Home Medications: Ambulatory Orders Multivitamins [Multivit ([facility] Formulary)] 1 mg PO DAILY 05/08/17 Pregabalin [Lyrica -] 50 mg PO TID 05/08/17 Calcium Carbonate/Vitamin D3 [Calcium 600 + Vit D 400 Softgl] 600 mg PO BID Furosemide [Lasix -] 40 mg PO DAILY PRN 11/17/18 Brimonidine Tartrate/Timolol [Combigan 0.2%-0.5% Eye Drops] 1 drop OU TID Fluticasone Furoate [Arnuity Ellipta] 1 spray NS DAILY PRN 02/06/19 Insulin Lispro Protamin/Lispro [Humalog Mix 75-25 Kwikpen] 27 unit SQ HS Insulin Lispro Protamin/Lispro [Humalog Mix 75-25 Kwikpen] 30 unit SQ AM Lisinopril/Hydrochlorothiazide [Lisinopril-Hctz 10-12.5 mg Tab] 1 tablet PO DAILY 02/06/19 Review of Systems - Review of Systems Constitutional: reports: Weakness, Other Eyes: reports: No Symptoms HENT: reports: No Symptoms Neck: reports: No Symptoms Cardiovascular: reports: No Symptoms Respiratory: reports: No Symptoms Gastrointestinal: reports: Abdominal Pain, Nausea, Vomiting Genitourinary: reports: No Symptoms Musculoskeletal: reports: No Symptoms Integumentary: reports: No Symptoms Neurological: reports: No Symptoms Endocrine: reports: No Symptoms Hematology/Lymphatic: reports: No Symptoms Psychiatric: reports: No Symptoms Physical Exam Vital Signs: Vital Signs Temperature 97.9 F 03/15/19 07:02 Pulse Rate 80 03/15/19 07:02 Respiratory Rate 20 03/15/19 07:02 Blood Pressure 104/43 L 03/15/19 07:02 O2 Sat by Pulse Oximetry (%) 96 03/15/19 05:13 Constitutional: Yes: Well Nourished, Mild Distress Cardiovascular: Yes: Regular Rate and Rhythm, S1, S2 Respiratory: Yes: Regular, Poor Air Entry (bases) Gastrointestinal: Yes: Other (absent bowel sounds,ng in place,urostomy) Musculoskeletal: Yes: WNL Extremities: Yes: WNL Neurological: Yes: Alert, Oriented Psychiatric: Yes: Alert Labs: CBC, BMP 03/14/19 22:45 03/15/19 03:26 Imaging - Results Chest X-ray: Report Reviewed, Image Reviewed Cat Scan: Report Reviewed, Image Reviewed Assessment/Plan patient with multiple medical problems comning in with intestinal obstruction i am going to empirically start patient on zosyn will await for cx reports rest as per the team hydration surgery on board
[2019-03-15] MEDS ORDERED: DEXTROSE 5%-NORMAL SALINE 1,000 ML IV SCH (09:00)
[2019-03-15] MEDS ORDERED: DEXTROSE 5%-WATER - 50 ML IVPB ONE ×3 (09:48→17:08)
[2019-03-15] MEDS ORDERED: cefTRIAXone SODIUM 1 GM VIAL ONE (09:48)
[2019-03-15] MEDS ORDERED: PT OWN MED DRAWER 7, Y5N ONE (09:48)
[2019-03-15] MEDS ORDERED: PIPERACILLIN/TAZOBACTAM 2.25 GM VIAL IVPB ONE ×2 (09:49→17:08)
--- NOTE | 2019-03-15 09:50 | PN ---
Progress Note, Physician Chief Complaint: left sided abdominal pain and nausea History of Present Illness: Patient is a 78 year old female with a significant past medical history of hypertension, GERD, diabetes, bladder cancer (s/p radiation, radical cystectomy , with ieloconduit), 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 Patient presents to the ED on 03/15/2019 severe diffuse abddominal pain, abdominal distension, nausea, vomiting x 1 day. Patient also reported a week of foul odor from urine urostomy bag. imaging: CT A/P: shows dilated proximal small bowel, Left paramidline-hernia abd xray 03/15/19: the distended small bowel loops could represent a focal ileus through a small bowel or possible partial small bowel obstruction. - Current Medication List Current Medications: Active Medications Heparin Sodium (Porcine) (Heparin -) 5,000 unit SQ BID GLORIA Hydralazine HCl (Apresoline Injection -) 10 mg IVPUSH Q6H PRN PRN Reason: HYPERTENSION Ceftriaxone Sodium 1 gm/ (Dextrose) 50 mls @ 100 mls/hr IVPB DAILY GLORIA; Protocol Piperacillin Sod/Tazobactam (Sod 2.25 gm/ Dextrose) 50 mls @ 100 mls/hr IVPB Q8H-IV GLORIA; Protocol Dextrose/Sodium Chloride (D5-Ns -) 1,000 mls @ 75 mls/hr IV ASDIR GLORIA Insulin Aspart (Novolog Vial Sliding Scale -) 1 vial SQ ACHS GLORIA; Protocol Last Admin: 03/15/19 06:08 Dose: Not Given Pantoprazole Sodium (Protonix Iv) 40 mg IVPUSH DAILY GLORIA - Objective Vital Signs: Vital Signs Temperature 97.9 F 03/15/19 07:02 Pulse Rate 80 03/15/19 07:02 Respiratory Rate 20 03/15/19 07:02 Blood Pressure 104/43 L 03/15/19 07:02 O2 Sat by Pulse Oximetry (%) 96 03/15/19 05:13 Constitutional: Yes: Well Nourished, No Distress Eyes: Yes: WNL, Conjunctiva Clear HENT: Yes: WNL, Atraumatic Neck: Yes: WNL, Supple Cardiovascular: Yes: Regular Rate and Rhythm Respiratory: Yes: Diminished Gastrointestinal: Yes: Distention, Hernia, Hypoactive Bowel Sounds, Tenderness ...Rectal Exam: Yes: Deferred Genitourinary: Yes: Other (ileol conduit - pink stoma) Extremities: Yes: WNL Edema: LLE: Trace, RLE: Trace Peripheral Pulses WNL: Yes Integumentary: Yes: WNL Neurological: Yes: WNL, Alert, Oriented ...Motor Strength: WNL Psychiatric: Yes: WNL, Alert, Oriented Labs: CBC, BMP 03/14/19 22:45 03/15/19 03:26 INR, PTT INR 1.05 (0.83-1.09) 03/14/19 22:45 - ....Imaging X-ray: Report Reviewed Cat Scan: Report Reviewed Problem List - Problems (1) SBO (small bowel obstruction) Assessment/Plan: Patient presents with abdominal pain and found to have an SBO per imaging: CTAP shows multiple ventral hernias within the anterior abdominal wall containing small bowel loops, there is a partial SBO related to hernias. Abdominal xray 03/15/19: distended small bowel loops that could represent al focal ileus through a small bowel or partial small bowel obstruction. NGT to low intermittent suction, has apx 150cc of brown output Patient is NPO, with IVF hydration. pain managed with IV tylenol and morphine if pain severe Surgery consulted and following Code(s): K56.609 - UNSP INTESTNL OBST, UNSP TO PARTIAL VERSUS COMPLETE OBST (2) Hyperkalemia Assessment/Plan: initally 6.3 on admission, given insulin/d50, resulted in K decreasing to 5.6 repeat K pending telemonitoring Code(s): E87.5 - HYPERKALEMIA (3) Hypertension Assessment/Plan: holding cardiac meds 2/2 to NPO status. monitor BP. Code(s): I10 - ESSENTIAL (PRIMARY) HYPERTENSION (4) Parkinsons disease Assessment/Plan: resume home meds once tolerating diet. Code(s): G20 - PARKINSON'S DISEASE (5) Acute renal failure Assessment/Plan: renal consulted. daily cmp ordered renal dose meds Code(s): N17.9 - ACUTE KIDNEY FAILURE, UNSPECIFIED Qualifiers: Acute renal failure type: unspecified Qualified Code(s): N17.9 - Acute kidney failure, unspecified (6) Urinary tract infection Assessment/Plan: UA+. on Ceftriaxone. Urine cultures pending Ileoconduit changed q 3 days Code(s): N39.0 - URINARY TRACT INFECTION, SITE NOT SPECIFIED (7) Diabetes Assessment/Plan: hypoglycemic episodes this a.m. hold insulin monitor bgms q4. on d5 NS Code(s): E11.9 - TYPE 2 DIABETES MELLITUS WITHOUT COMPLICATIONS (8) Prophylactic measure Assessment/Plan: fen NPO monitor electrolytes surgery to advance diet as tolerated full code SCDs Code(s): Z29.9 - ENCOUNTER FOR PROPHYLACTIC MEASURES, UNSPECIFIED (9) Prophylactic measure Code(s): Z29.9 - ENCOUNTER FOR PROPHYLACTIC MEASURES, UNSPECIFIED Visit type - Emergency Visit Emergency Visit: Yes ED Registration Date: 03/15/19 Care time: The patient presented to the Emergency Department on the above date and was hospitalized for further evaluation of their emergent condition. - New Patient This patient is new to me today: Yes Date on this admission: 03/15/19 - Critical Care Critical Care patient: No - Discharge Referral Referred to [facility] No
[2019-03-15] MEDS: HEPARIN NA (PORCINE) 5,000 UNITS/ML 1ML VIAL SQ SCH ×2 (10:03→21:54)
[2019-03-15] MEDS: CEFTRIAXONE 1 GM in DEXTROSE 5%-WATER - 50 ML IVPB SCH (10:04)
[2019-03-15] MEDS: PANTOPRAZOLE SODIUM 40 MG VIAL IVPUSH SCH (10:04)
[2019-03-15] MEDS: PIPERACILLIN/TAZOB 2.25 GM 2.25 GM in DEXTROSE 5%-WATER - 50 ML IVPB SCH ×2 (10:59→17:11)
--- NOTE | 2019-03-15 11:56 | EKG ---
Test Reason : Blood Pressure : / mmHG Vent. Rate : 086 BPM Atrial Rate : 086 BPM P-R Int : 140 ms QRS Dur : 118 ms QT Int : 388 ms P-R-T Axes : 064 -28 046 degrees QTc Int : 464 ms NORMAL SINUS RHYTHM RIGHT BUNDLE BRANCH BLOCK NONSPECIFIC T WAVE ABNORMALITY ABNORMAL ECG Confirmed by AIDE HOPKINS MD ([id number]) on 03/15/2019 11:55:59 AM Referred By: Confirmed By:AIDE HOPKINS MD
--- NOTE | 2019-03-15 11:59 | EKG ---
Test Reason : Blood Pressure : / mmHG Vent. Rate : 065 BPM Atrial Rate : 065 BPM P-R Int : 138 ms QRS Dur : 120 ms QT Int : 428 ms P-R-T Axes : 053 -32 044 degrees QTc Int : 445 ms NORMAL SINUS RHYTHM LEFT AXIS DEVIATION RIGHT BUNDLE BRANCH BLOCK ABNORMAL ECG WHEN COMPARED WITH ECG OF 07-FEB-2019 02:21, NO SIGNIFICANT CHANGE WAS FOUND Confirmed by AIDE HOPKINS MD ([id number]) on 03/15/2019 11:58:53 AM Referred By: Confirmed By:AIDE HOPKINS MD
[2019-03-15] MEDS: ACETAMINOPHEN 1000 MG/100 ML VIAL (NON FORMULARY) IVPB PRN ×2 (13:00→22:31)
--- NOTE | 2019-03-15 15:28 | CONSULT ---
Consult - text type - Consultation Consultation Note: Renal consult for NATASHA and hyperkalemia This is a 78 year old woman with history of bladder cancer s/p cystoectomy and ieloconduit, CVA (hemorrhagic), Hx of DVT, CKD presented with abd pain and found to have SBO with NATASHA and hyperkalemia. Pt seen and examined at the bedside. Continues to have abdominal pain. Making urine via cystotomy. No fever, chills. Denies any NSAID use. No recent contrast exposure. N/V x 1 day. No chest pain, sob, MASON, confusion or lethargy. PMhx: as above allergies: Latex Family Hx: NC ROs: as per HPI Home Medications Medication Instructions Recorded Multivitamins [Multivit ([facility] 1 mg PO DAILY 05/08/17 Formulary)] Pregabalin [Lyrica -] 50 mg PO TID 05/08/17 Calcium Carbonate/Vitamin D3 600 mg PO BID 03/15/18 [Calcium 600 + Vit D 400 Softgl] Furosemide [Lasix -] 40 mg PO DAILY PRN 11/17/18 Brimonidine Tartrate/Timolol 1 drop OU TID 02/06/19 [Combigan 0.2%-0.5% Eye Drops] Fluticasone Furoate [Arnuity 1 spray NS DAILY PRN 02/06/19 Ellipta] Insulin Lispro Protamin/Lispro 27 unit SQ HS 02/06/19 [Humalog Mix 75-25 Kwikpen] Insulin Lispro Protamin/Lispro 30 unit SQ AM 02/06/19 [Humalog Mix 75-25 Kwikpen] Lisinopril/Hydrochlorothiazide 1 tablet PO DAILY 02/06/19 [Lisinopril-Hctz 10-12.5 mg Tab] Intake & Output 03/12/19 03/13/19 03/14/19 03/15/19 23:59 23:59 23:59 23:59 Intake Total 825 Output Total 1800 Balance -975 Weight 122.47 kg 117.163 kg Vital Signs Temperature 98.2 F 03/15/19 10:00 Pulse Rate 88 03/15/19 10:00 Respiratory Rate 20 03/15/19 10:00 Blood Pressure 111/53 L 03/15/19 10:00 O2 Sat by Pulse Oximetry (%) 98 03/15/19 09:00 NAD awake and alert neck supple, no JVD RRR CTA No LE edema CBC, BMP 03/14/19 22:45 03/15/19 03:26 Current Medications Acetaminophen (Ofirmev Injection -) 1,000 mg IVPB Q6H PRN PRN Reason: PAIN LEVEL 6-10 Last Admin: 03/15/19 13:00 Dose: 1,000 mg Heparin Sodium (Porcine) (Heparin -) 5,000 unit SQ BID [facility] Last Admin: 03/15/19 10:03 Dose: 5,000 unit Hydralazine HCl (Apresoline Injection -) 10 mg IVPUSH Q6H PRN PRN Reason: HYPERTENSION Ceftriaxone Sodium 1 gm/ (Dextrose) 50 mls @ 100 mls/hr IVPB DAILY [facility]; Protocol Last Admin: 03/15/19 10:04 Dose: 100 mls/hr Piperacillin Sod/Tazobactam (Sod 2.25 gm/ Dextrose) 50 mls @ 100 mls/hr IVPB Q8H-IV [facility]; Protocol Last Admin: 03/15/19 10:59 Dose: 100 mls/hr Sodium Chloride (Normal Saline -) 1,000 mls @ 100 mls/hr IV ASDIR [facility] Insulin Aspart (Novolog Vial Sliding Scale -) 1 vial SQ ACHS [facility]; Protocol Last Admin: 03/15/19 11:20 Dose: Not Given Pantoprazole Sodium (Protonix Iv) 40 mg IVPUSH DAILY [facility] Last Admin: 03/15/19 10:04 Dose: 40 mg 78 year old woman with history of bladder cancer s/p cystoectomy and ieloconduit, CVA (hemorrhagic), Hx of DVT, CKD presented with abd pain and found to have SBO with NATASHA and hyperkalemia. #NATASHA in setting of volume depletion and ACEi/Diuretic #SBO #Hyperkalemia in setting of NATASHA and ACEi #CKD Renal function slightly worse then last discharge continue isotonic saline at 100cc per hour keep MAP > 65 consider holding antihypertensives if BP runs low low K diet when able to tolerate diet hold ACEi/HCTZ Surgical follow up Trend BMP Q12h Thank you Stevan Maya DO
[2019-03-15] MEDS ORDERED: MORPHINE SULFATE 2 MG/ML VIAL IVPUSH PRN (15:56)
[2019-03-15 17:23] LABS: BASO % 0.2 % (0-2.0); EOS % 1.9 % (0-4.5); HEMATOCRIT 30.5 % (32.4-45.2); HEMOGLOBIN 9.9 GM/dL (10.7-15.3); LYMPH % 11.1 % (8-40); MCH 28.9 pg (25.7-33.7); MCHC 32.5 g/dl (32.0-36.0); MEAN CELL VOLUME 89.1 fl (80-96); MEAN PLT VOLUME 9.6 fl (7.5-11.1); MONO % 6.1 % (3.8-10.2); NEUT % 80.7 % (42.8-82.8); PLATELET COUNT 176 K/MM3 (134-434); RBC 3.42 M/mm3 (3.60-5.2); RDW 16.1 % (11.6-15.6); WHITE BLOOD COUNT 5.9 K/mm3 (4.0-10.0)
[2019-03-15 17:48] LABS: INR 1.08 (0.83-1.09); PROTHROMBIN TIME (PATIENT) 12.7 SEC (9.7-13.0)
[2019-03-15 17:51] LABS: ACTIVATED PTT 33.2 SECONDS (25.2-36.5)
[2019-03-15 18:04] LABS: ALBUMIN 2.6 g/dl (3.4-5.0); BILIRUBIN,TOTAL 0.7 mg/dL (0.2-1); BLOOD UREA NITROGEN 34.3 mg/dL (7-18); CALCIUM 8.3 mg/dL (8.5-10.1); CREATININE 1.8 mg/dL (0.55-1.3); MAGNESIUM 1.8 mg/dL (1.8-2.4)
--- NOTE | 2019-03-15 18:33 | CONSULT ---
- Consultation REQUESTING PROVIDER: Lydia BELLAMY CONSULT REQUEST: We have been asked to surgically evaluate this patient for possible SBO PCP:Nahum Sigala NP HISTORY OF PRESENT ILLNESS: 78 y/o A/A/F w/ # previous admissions here and # medical co-morbid conditions presented w/ nausea and vomiting and abdominal pain ; she was found to have a possible SBO and incarcerated incisional hernia; an NGT was placed; she states she is passing flatus but has not has a BM. She has known incisional hernias adn was told she was a prohibitive operative risk for repair; she has had a total cystectomy and an ileal conduit. PMHx: CHR/glaucoma/IDDM/morbid obesity/HTN/Parkinsons PSHx: total cystectomy and ileal conduit Home Medications Medication Instructions Recorded Multivitamins [Multivit ([facility] 1 mg PO DAILY 05/08/17 Formulary)] Pregabalin [Lyrica -] 50 mg PO TID 05/08/17 Calcium Carbonate/Vitamin D3 600 mg PO BID 03/15/18 [Calcium 600 + Vit D 400 Softgl] Furosemide [Lasix -] 40 mg PO DAILY PRN 11/17/18 Brimonidine Tartrate/Timolol 1 drop OU TID 02/06/19 [Combigan 0.2%-0.5% Eye Drops] Fluticasone Furoate [Arnuity 1 spray NS DAILY PRN 02/06/19 Ellipta] Insulin Lispro Protamin/Lispro 27 unit SQ HS 02/06/19 [Humalog Mix 75-25 Kwikpen] Insulin Lispro Protamin/Lispro 30 unit SQ AM 02/06/19 [Humalog Mix 75-25 Kwikpen] Lisinopril/Hydrochlorothiazide 1 tablet PO DAILY 02/06/19 [Lisinopril-Hctz 10-12.5 mg Tab] Carbidopa/Levodopa 1 each PO BID 03/15/19 [Carbidopa-Levodopa 25-250 Tab] Diphenhydramine [Benadryl 12.5 12.5 mg PO PRN 03/15/19 MG/5 ML Oral Solution -] Omeprazole 40 mg PO BID 03/15/19 Pramipexole Dihydrochloride 0.5 mg PO BID 03/15/19 [Mirapex -] Allergies Allergy/AdvReac Type Severity Reaction Status Date / Time latex Allergy Verified 02/06/19 17:13 REVIEW OF SYSTEMS: CONSTITUTIONAL: Absent: fever, chills, diaphoresis, generalized weakness, malaise, loss of appetite, weight change CARDIOVASCULAR: Absent: chest pain, syncope, palpitations, irregular heart rate, lightheadedness , peripheral edema RESPIRATORY: Absent: cough, shortness of breath, dyspnea with exertion, wheezing, stridor, hemoptysis GASTROINTESTINAL: Present: abdominal pain, abdominal distension, nausea, vomiting. GENITOURINARY: Absent: dysuria, frequency, urgency, hesitancy, hematuria, flank pain, genital pain ( she has an ileal conduit ) MUSCULOSKELETAL: Present: myalgia, arthralgia, joint swelling, back pain, neck pain SKIN: Absent: rash, itching, pallor HEMATOLOGIC/IMMUNOLOGIC: Absent: easy bleeding, easy bruising, lymphadenopathy NEUROLOGIC: Absent: headache, focal weakness, paresthesias, dizziness, unsteady gait, seizure, mental status changes, or bowel incontinence PSYCHIATRIC: Absent: anxiety, depression, suicidal or homicidal ideation, hallucinations. PHYSICAL EXAM: GENERAL: Awake, alert, and fully oriented, in no acute distress. HEAD: Normal with no signs of trauma. EYES: sclera anicteric, conjunctiva clear. NECK: Normal ROM, supple without lymphadenopathy, JVD, or masses. ABDOMEN: Soft, nontender, minimally distended, normoactive bowel sounds, no guarding, no rebound, no masses. No organomegaly. # incisional hernais; viable ileal conduit. MUSCULOSKELETAL: Normal ROM at all joints. No bony deformities or tenderness. No CVA tenderness. UPPER EXTREMITIES: 2+ pulses, warm, well-perfused. No cyanosis. Cap refill <2 seconds. No peripheral edema. LOWER EXTREMITIES: 2+ pulses, warm, well-perfused. No calf tenderness. No peripheral edema. NEUROLOGICAL: Normal speech, gait not observed. PSYCH: Cooperative. Good eye contact. Appropriate mood and affect. SKIN: Warm, dry, normal turgor, no rashes or lesions noted. Vital Signs Temperature 97.9 F 03/15/19 16:12 Pulse Rate 75 03/15/19 16:12 Respiratory Rate 18 03/15/19 16:12 Blood Pressure 104/42 L 03/15/19 16:12 O2 Sat by Pulse Oximetry (%) 98 03/15/19 09:00 Lab Results WBC 5.9 K/mm3 (4.0-10.0) 03/15/19 16:55 RBC 3.42 M/mm3 (3.60-5.2) L 03/15/19 16:55 Hgb 9.9 GM/dL (10.7-15.3) L 03/15/19 16:55 Hct 30.5 % (32.4-45.2) L 03/15/19 16:55 MCV 89.1 fl (80-96) 03/15/19 16:55 MCHC 32.5 g/dl (32.0-36.0) 03/15/19 16:55 RDW 16.1 % (11.6-15.6) H 03/15/19 16:55 Plt Count 176 K/MM3 (134-434) D 03/15/19 16:55 Sodium 143 mmol/L (136-145) 03/15/19 16:55 Potassium 5.0 mmol/L (3.5-5.1) 03/15/19 16:55 Chloride 114 mmol/L (98-107) H 03/15/19 16:55 Carbon Dioxide 26 mmol/L (21-32) 03/15/19 16:55 Anion Gap 3 MMOL/L (8-16) L 03/15/19 16:55 BUN 34.3 mg/dL (7-18) H 03/15/19 16:55 Creatinine 1.8 mg/dL (0.55-1.3) H 03/15/19 16:55 Random Glucose 155 mg/dL (74-106) H 03/15/19 16:55 Calcium 8.3 mg/dL (8.5-10.1) L 03/15/19 16:55 INR 1.08 (0.83-1.09) 03/15/19 16:55 CT a/p reviewed AXR's today reviewed IMP: Incisional hernias chronically incarcerated but not strangulated; and probable ileus PLAN: NPO/IVF/NGT/serial exams and xrays; will f/u; no evidence of an acute surgical abdomen. Will f/u. Pranav Jordan MD FACS
[2019-03-15 18:54] LABS: BLOOD UREA NITROGEN 33.5 mg/dL (7-18); CREATININE 1.7 mg/dL (0.55-1.3)
[2019-03-16] MEDS ORDERED: DEXTROSE 5%-WATER - 50 ML IVPB ONE ×4 (00:59→17:08)
[2019-03-16] MEDS ORDERED: PIPERACILLIN/TAZOBACTAM 2.25 GM VIAL IVPB ONE ×3 (00:59→17:08)
[2019-03-16] MEDS: PIPERACILLIN/TAZOB 2.25 GM 2.25 GM in DEXTROSE 5%-WATER - 50 ML IVPB SCH ×3 (01:08→17:17)
[2019-03-16] MEDS: INSULIN SLIDING SCALE (NOVOLOG) 1 VIAL SQ SCH ×4 (06:37→22:09)
[2019-03-16] MEDS ORDERED: cefTRIAXone SODIUM 1 GM VIAL ONE (07:36)
[2019-03-16] MEDS: CEFTRIAXONE 1 GM in DEXTROSE 5%-WATER - 50 ML IVPB SCH (09:58)
[2019-03-16] MEDS: PANTOPRAZOLE SODIUM 40 MG VIAL IVPUSH SCH (09:59)
[2019-03-16] MEDS: HEPARIN NA (PORCINE) 5,000 UNITS/ML 1ML VIAL SQ SCH ×2 (10:00→21:33)
--- NOTE | 2019-03-16 10:31 | PN ---
Progress Note, Physician Chief Complaint: left sided abdominal pain and nausea History of Present Illness: Patient is a 78 year old female with a significant past medical history of hypertension, GERD, diabetes, bladder cancer (s/p radiation, radical cystectomy , with ieloconduit), 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 Patient presents to the ED on 03/15/2019 severe diffuse abddominal pain, abdominal distension, nausea, vomiting x 1 day. Patient also reported a week of foul odor from urine urostomy bag. imaging: CT A/P: shows dilated proximal small bowel, Left paramidline-hernia abd xray 03/15/19: the distended small bowel loops could represent a focal ileus through a small bowel or possible partial small bowel obstruction. - Current Medication List Current Medications: Active Medications Acetaminophen (Ofirmev Injection -) 1,000 mg IVPB Q6H PRN PRN Reason: PAIN LEVEL 6-10 Last Admin: 03/15/19 22:31 Dose: 1,000 mg Heparin Sodium (Porcine) (Heparin -) 5,000 unit SQ BID GLORIA Last Admin: 03/16/19 10:00 Dose: 5,000 unit Hydralazine HCl (Apresoline Injection -) 10 mg IVPUSH Q6H PRN PRN Reason: HYPERTENSION Ceftriaxone Sodium 1 gm/ (Dextrose) 50 mls @ 100 mls/hr IVPB DAILY [facility]; Protocol Last Admin: 03/16/19 09:58 Dose: 100 mls/hr Piperacillin Sod/Tazobactam (Sod 2.25 gm/ Dextrose) 50 mls @ 100 mls/hr IVPB Q8H-IV [facility]; Protocol Last Admin: 03/16/19 09:58 Dose: 100 mls/hr Sodium Chloride (Normal Saline -) 1,000 mls @ 100 mls/hr IV ASDIR [facility] Last Admin: 03/15/19 17:02 Dose: 100 mls/hr Insulin Aspart (Novolog Vial Sliding Scale -) 1 vial SQ ACHS [facility]; Protocol Last Admin: 03/16/19 06:37 Dose: Not Given Morphine Sulfate (Morphine Sulfate) 1 mg IVPUSH Q4H PRN PRN Reason: PAIN LEVEL 7 - 10 Pantoprazole Sodium (Protonix Iv) 40 mg IVPUSH DAILY [facility] Last Admin: 03/16/19 09:59 Dose: 40 mg - Objective Vital Signs: Vital Signs Temperature 98.7 F 03/16/19 08:46 Pulse Rate 72 03/16/19 08:46 Respiratory Rate 18 03/16/19 08:46 Blood Pressure 104/55 L 03/16/19 08:46 O2 Sat by Pulse Oximetry (%) 98 03/16/19 08:46 Constitutional: Yes: Well Nourished, No Distress, Calm Eyes: Yes: WNL HENT: Yes: WNL, Atraumatic Neck: Yes: WNL, Supple Cardiovascular: Yes: WNL, Regular Rate and Rhythm Respiratory: Yes: WNL, Regular, CTA Bilaterally Gastrointestinal: Yes: WNL, Normal Bowel Sounds, Soft, Other (passing flatus) ...Rectal Exam: Yes: Deferred Genitourinary: Yes: WNL Edema: No Labs: CBC, BMP 03/15/19 16:55 03/15/19 18:30 INR, PTT INR 1.08 (0.83-1.09) 03/15/19 16:55 Problem List - Problems (1) SBO (small bowel obstruction) Assessment/Plan: Patient presents with abdominal pain and found to have an SBO per imaging: CTAP shows multiple ventral hernias within the anterior abdominal wall containing small bowel loops, there is a partial SBO related to hernias. Abdominal xray 03/15/19: distended small bowel loops that could represent al focal ileus through a small bowel or partial small bowel obstruction. NGT removed today and patient started on clears by surgery. Pain managed with tylenol and morphine PRN. Denies abdominal pain, + flatus Code(s): K56.609 - UNSP INTESTNL OBST, UNSP TO PARTIAL VERSUS COMPLETE OBST (2) Hyperkalemia Assessment/Plan: initally 6.3 on admission, given insulin/d50, resulted in K decreasing to 5.6. repeat labs show stable K of 5.0. Code(s): E87.5 - HYPERKALEMIA (3) Hypertension Assessment/Plan: restart cardiac medications Code(s): I10 - ESSENTIAL (PRIMARY) HYPERTENSION (4) Parkinsons disease Assessment/Plan: resume home meds. on sinemet BID. Code(s): G20 - PARKINSON'S DISEASE (5) Urinary tract infection Assessment/Plan: UA+. on Ceftriaxone. Urine cultures pending Ileoconduit changed q 3 days Code(s): N39.0 - URINARY TRACT INFECTION, SITE NOT SPECIFIED (6) Diabetes Assessment/Plan: resume novolog now that patient is on clears. Code(s): E11.9 - TYPE 2 DIABETES MELLITUS WITHOUT COMPLICATIONS (7) Acute renal failure Assessment/Plan: on 1/ NS per renal. renal dose meds. Code(s): N17.9 - ACUTE KIDNEY FAILURE, UNSPECIFIED (8) Prophylactic measure Assessment/Plan: fen clears monitor electrolytes surgery to advance diet as tolerated full [facility] Code(s): Z29.9 - ENCOUNTER FOR PROPHYLACTIC MEASURES, UNSPECIFIED Visit type - Emergency Visit Emergency Visit: Yes ED Registration Date: 03/15/19 Care time: The patient presented to the Emergency Department on the above date and was hospitalized for further evaluation of their emergent condition. - New Patient This patient is new to me today: No - Critical Care Critical Care patient: No - Discharge Referral Referred to [facility] Med P.C.: No
--- NOTE | 2019-03-16 12:38 | PN ---
Progress Note (short form) - Note Progress Note: Atending Surgeon Passing flatus; feels like she has to have a BM; looks better VSS AF abdo-soft and non tympanitic and/or distended; o/w negative. IMP: improved PLAN: NGT d/c'ed; trial of clear liquids and advance as tolerated. Pranav Jordan MD FACS
--- NOTE | 2019-03-16 12:52 | PN ---
Progress Note, Physician History of Present Illness: Pt seen and examined at bedside. She is awake and alert. She says that she has appetite. She denies abd pain. - Current Medication List Current Medications: Active Medications Acetaminophen (Ofirmev Injection -) 1,000 mg IVPB Q6H PRN PRN Reason: PAIN LEVEL 6-10 Last Admin: 03/15/19 22:31 Dose: 1,000 mg Heparin Sodium (Porcine) (Heparin -) 5,000 unit SQ BID [facility] Last Admin: 03/16/19 10:00 Dose: 5,000 unit Hydralazine HCl (Apresoline Injection -) 10 mg IVPUSH Q6H PRN PRN Reason: HYPERTENSION Ceftriaxone Sodium 1 gm/ (Dextrose) 50 mls @ 100 mls/hr IVPB DAILY [facility]; Protocol Last Admin: 03/16/19 09:58 Dose: 100 mls/hr Piperacillin Sod/Tazobactam (Sod 2.25 gm/ Dextrose) 50 mls @ 100 mls/hr IVPB Q8H-IV [facility]; Protocol Last Admin: 03/16/19 09:58 Dose: 100 mls/hr Sodium Chloride (Normal Saline -) 1,000 mls @ 100 mls/hr IV ASDIR [facility] Last Admin: 03/15/19 17:02 Dose: 100 mls/hr Insulin Aspart (Novolog Vial Sliding Scale -) 1 vial SQ ACHS [facility]; Protocol Last Admin: 03/16/19 11:36 Dose: Not Given Morphine Sulfate (Morphine Sulfate) 1 mg IVPUSH Q4H PRN PRN Reason: PAIN LEVEL 7 - 10 Pantoprazole Sodium (Protonix Iv) 40 mg IVPUSH DAILY [facility] Last Admin: 03/16/19 09:59 Dose: 40 mg - Objective Vital Signs: Vital Signs Temperature 98.7 F 03/16/19 08:46 Pulse Rate 72 03/16/19 08:46 Respiratory Rate 18 03/16/19 08:46 Blood Pressure 104/55 L 03/16/19 08:46 O2 Sat by Pulse Oximetry (%) 98 03/16/19 08:46 Constitutional: Yes: Calm Eyes: Yes: Conjunctiva Clear HENT: Yes: Atraumatic Neck: Yes: Supple Cardiovascular: Yes: S1, S2 Respiratory: Yes: CTA Bilaterally Gastrointestinal: Yes: Soft, Abdomen, Obese Genitourinary: Yes: Connelly Present Extremities: Yes: Amputation Edema: No Neurological: Yes: Oriented Psychiatric: Yes: Oriented Labs: CBC, BMP 03/15/19 16:55 03/15/19 18:30 INR, PTT INR 1.08 (0.83-1.09) 03/15/19 16:55 Problem List - Problems (1) Abdominal pain Code(s): R10.9 - UNSPECIFIED ABDOMINAL PAIN (2) Hyperkalemia Code(s): E87.5 - HYPERKALEMIA (3) Hypertension Code(s): I10 - ESSENTIAL (PRIMARY) HYPERTENSION (4) Acute renal failure Code(s): N17.9 - ACUTE KIDNEY FAILURE, UNSPECIFIED Qualifiers: Acute renal failure type: unspecified Qualified Code(s): N17.9 - Acute kidney failure, unspecified Assessment/Plan Current Medications Generic Name Dose Route Start Last Admin Trade Name Freq PRN Reason Stop Dose Admin Acetaminophen 1,000 mg 03/15/19 10:08 03/15/19 22:31 Ofirmev Injection - IVPB 1,000 mg Q6H PRN Administration PAIN LEVEL 6-10 Heparin Sodium (Porcine) 5,000 unit 03/15/19 10:00 03/16/19 10:00 Heparin - SQ 5,000 unit BID GLORIA Administration Hydralazine HCl 10 mg 03/15/19 02:55 Apresoline Injection - IVPUSH Q6H PRN HYPERTENSION Ceftriaxone Sodium 1 gm/ 50 mls @ 100 mls/hr 03/15/19 10:00 03/16/19 09:58 Dextrose IVPB 100 mls/hr DAILY [facility] Administration Protocol Piperacillin Sod/Tazobactam 50 mls @ 100 mls/hr 03/15/19 10:00 03/16/19 09:58 Sod 2.25 gm/ Dextrose IVPB 100 mls/hr Q8H-IV [facility] Administration Protocol Sodium Chloride 1,000 mls @ 100 mls/hr 03/15/19 15:15 03/15/19 17:02 Normal Saline - IV 100 mls/hr ASDIR [facility]IA Administration Insulin Aspart 1 vial 03/15/19 07:00 03/16/19 11:36 Novolog Vial Sliding Scale - SQ Not Given ACHS GLORIA Protocol Morphine Sulfate 1 mg 03/15/19 15:56 Morphine Sulfate IVPUSH Q4H PRN PAIN LEVEL 7 - 10 Pantoprazole Sodium 40 mg 03/15/19 10:00 03/16/19 09:59 Protonix Iv IVPUSH 40 mg DAILY [facility]IA Administration #NATASHA in setting of volume depletion and ACEi/Diuretic #SBO #Hyperkalemia in setting of NATASHA and ACEi #CKD Plan - renal function improving - change fluids to 1/2 ns - surgery input appreciated, pt will get a trial of clears today - monitor renal function - keep paige and thiazide on hold for now
--- NOTE | 2019-03-16 13:10 | PN ---
Progress Note, Physician - Current Medication List Current Medications: Active Medications Acetaminophen (Ofirmev Injection -) 1,000 mg IVPB Q6H PRN PRN Reason: PAIN LEVEL 6-10 Last Admin: 03/15/19 22:31 Dose: 1,000 mg Heparin Sodium (Porcine) (Heparin -) 5,000 unit SQ BID [facility] Last Admin: 03/16/19 10:00 Dose: 5,000 unit Hydralazine HCl (Apresoline Injection -) 10 mg IVPUSH Q6H PRN PRN Reason: HYPERTENSION Ceftriaxone Sodium 1 gm/ (Dextrose) 50 mls @ 100 mls/hr IVPB DAILY [facility]; Protocol Last Admin: 03/16/19 09:58 Dose: 100 mls/hr Piperacillin Sod/Tazobactam (Sod 2.25 gm/ Dextrose) 50 mls @ 100 mls/hr IVPB Q8H-IV [facility]; Protocol Last Admin: 03/16/19 09:58 Dose: 100 mls/hr Sodium Chloride (1/2 Normal Saline) 1,000 mls @ 100 mls/hr IV ASDIR GLORIA Insulin Aspart (Novolog Vial Sliding Scale -) 1 vial SQ ACHS [facility]; Protocol Last Admin: 03/16/19 11:36 Dose: Not Given Morphine Sulfate (Morphine Sulfate) 1 mg IVPUSH Q4H PRN PRN Reason: PAIN LEVEL 7 - 10 Pantoprazole Sodium (Protonix Iv) 40 mg IVPUSH DAILY [facility] Last Admin: 03/16/19 09:59 Dose: 40 mg - Objective Vital Signs: Vital Signs Temperature 98.7 F 03/16/19 08:46 Pulse Rate 72 03/16/19 08:46 Respiratory Rate 18 03/16/19 08:46 Blood Pressure 104/55 L 03/16/19 08:46 O2 Sat by Pulse Oximetry (%) 98 03/16/19 08:46 Labs: CBC, BMP 03/15/19 16:55 03/15/19 18:30 INR, PTT INR 1.08 (0.83-1.09) 03/15/19 16:55
[2019-03-16] MEDS: SODIUM CHLORIDE 0.45% 1,000 ML IV SCH (13:43)
[2019-03-16] MEDS ORDERED: FUROSEMIDE 40 MG TABLET (FP) PO PRN (14:05)
[2019-03-16] MEDS: BRIMONIDINE TARTRATE 0.2% OPHTHALMIC 5 ML BOTTLE OU SCH (21:31)
[2019-03-16] MEDS: TIMOLOL 0.5% OPHTHALMIC SOL 5 ML BOTTLE OU SCH (21:31)
[2019-03-16] MEDS: PRAMIPEXOLE DIHYDROCHLORIDE 0.5 MG TABLET PO SCH (21:32)
[2019-03-16] MEDS: PREGABALIN 50 MG CAPSULE PO SCH (21:32)
[2019-03-16] MEDS: CALCIUM 500MG/VIT-D 200 UNITS COMBO TABLET (FP) PO SCH (21:32)
[2019-03-16] MEDS: CARBIDOPA/LEVODOPA 25/250 TABLET (FP) PO SCH (21:33)
[2019-03-16] MEDS ORDERED: PATIENT'S OWN MEDICATION (NON-FORMULARY) (Brimonidine Tartrate/Timolol [Combigan 0.2%-0.5% OU SCH (22:00)
[2019-03-17] MEDS ORDERED: PIPERACILLIN/TAZOBACTAM 2.25 GM VIAL IVPB ONE (01:16)
[2019-03-17] MEDS ORDERED: DEXTROSE 5%-WATER - 50 ML IVPB ONE (01:16)
[2019-03-17] MEDS: PIPERACILLIN/TAZOB 2.25 GM 2.25 GM in DEXTROSE 5%-WATER - 50 ML IVPB SCH ×3 (01:22→17:17)
[2019-03-17] MEDS: PREGABALIN 50 MG CAPSULE PO SCH ×3 (05:46→21:24)
[2019-03-17] MEDS: TIMOLOL 0.5% OPHTHALMIC SOL 5 ML BOTTLE OU SCH ×3 (05:46→21:25)
[2019-03-17] MEDS: BRIMONIDINE TARTRATE 0.2% OPHTHALMIC 5 ML BOTTLE OU SCH ×3 (05:46→21:26)
[2019-03-17] MEDS: INSULIN SLIDING SCALE (NOVOLOG) 1 VIAL SQ SCH ×4 (06:29→21:24)
[2019-03-17] MEDS ORDERED: PATIENT'S OWN MEDICATION (NON-FORMULARY) (Lisinopril/Hydrochlorothiazide [Lisinopril-Hctz PO SCH (10:00)
[2019-03-17] MEDS ORDERED: LISINOPRIL 10 MG TABLET (FP) PO SCH (10:00)
[2019-03-17] MEDS ORDERED: HYDROCHLOROTHIAZIDE 12.5 MG CAPSULE (FP) PO SCH (10:00)
[2019-03-17 10:05] LABS: BASO % 0.3 % (0-2.0); EOS % 2.2 % (0-4.5); HEMATOCRIT 28.5 % (32.4-45.2); HEMOGLOBIN 9.2 GM/dL (10.7-15.3); LYMPH % 14.9 % (8-40); MCH 28.7 pg (25.7-33.7); MCHC 32.2 g/dl (32.0-36.0); MEAN CELL VOLUME 89.1 fl (80-96); MEAN PLT VOLUME 8.8 fl (7.5-11.1); MONO % 7.1 % (3.8-10.2); NEUT % 75.5 % (42.8-82.8); PLATELET COUNT 160 K/MM3 (134-434); RDW 16.1 % (11.6-15.6); WHITE BLOOD COUNT 5.2 K/mm3 (4.0-10.0)
[2019-03-17] MEDS: PRAMIPEXOLE DIHYDROCHLORIDE 0.5 MG TABLET PO SCH ×2 (10:14→21:24)
[2019-03-17] MEDS: PANTOPRAZOLE SODIUM 40 MG VIAL IVPUSH SCH (10:14)
[2019-03-17] MEDS: CEFTRIAXONE 1 GM in DEXTROSE 5%-WATER - 50 ML IVPB SCH (10:14)
[2019-03-17] MEDS: CALCIUM 500MG/VIT-D 200 UNITS COMBO TABLET (FP) PO SCH ×2 (10:14→21:24)
[2019-03-17] MEDS: HEPARIN NA (PORCINE) 5,000 UNITS/ML 1ML VIAL SQ SCH ×2 (10:15→21:23)
[2019-03-17] MEDS: CARBIDOPA/LEVODOPA 25/250 TABLET (FP) PO SCH ×2 (10:15→21:25)
[2019-03-17 10:41] LABS: ALBUMIN 2.7 g/dl (3.4-5.0); BILIRUBIN,TOTAL 0.5 mg/dL (0.2-1); BLOOD UREA NITROGEN 18.3 mg/dL (7-18); CALCIUM 8.2 mg/dL (8.5-10.1); CREATININE 1.7 mg/dL (0.55-1.3); MAGNESIUM 1.7 mg/dL (1.8-2.4)
--- NOTE | 2019-03-17 12:09 | PN ---
Progress Note (short form) - Note Progress Note: Attending Surgeon No c/o; had BM; tolerating diet VSS AF abdo-soft and non tender IMP: improved PLAN: Advance diet as tolerated; prn surgical f/u. Pranav Jordan MD FACS
--- NOTE | 2019-03-17 13:04 | PN ---
Progress Note, Physician History of Present Illness: Pt seen and examined at bedside. She is tolerating clears. She denies shortness of breath. - Current Medication List Current Medications: Active Medications Acetaminophen (Ofirmev Injection -) 1,000 mg IVPB Q6H PRN PRN Reason: PAIN LEVEL 6-10 Last Admin: 03/15/19 22:31 Dose: 1,000 mg Brimonidine Tartrate (Alphagan 0.2% -) 1 drop OU TID [facility] Last Admin: 03/17/19 05:46 Dose: 1 drop Calcium Carbonate/Cholecalciferol (Os-Jay 500+D -) 1 tab PO BID [facility] Last Admin: 03/17/19 10:14 Dose: 1 tab Carbidopa/Levodopa (Sinemet 25/250 -) 1 each PO BID [facility] Last Admin: 03/17/19 10:15 Dose: 1 each Heparin Sodium (Porcine) (Heparin -) 5,000 unit SQ BID [facility] Last Admin: 03/17/19 10:15 Dose: 5,000 unit Hydralazine HCl (Apresoline Injection -) 10 mg IVPUSH Q6H PRN PRN Reason: HYPERTENSION Ceftriaxone Sodium 1 gm/ (Dextrose) 50 mls @ 100 mls/hr IVPB DAILY [facility]; Protocol Last Admin: 03/17/19 10:14 Dose: 100 mls/hr Piperacillin Sod/Tazobactam (Sod 2.25 gm/ Dextrose) 50 mls @ 100 mls/hr IVPB Q8H-IV [facility]; Protocol Last Admin: 03/17/19 10:14 Dose: 100 mls/hr Sodium Chloride (1/2 Normal Saline) 1,000 mls @ 100 mls/hr IV ASDIR [facility] Last Admin: 03/16/19 13:43 Dose: 100 mls/hr Insulin Aspart (Novolog Vial Sliding Scale -) 1 vial SQ ACHS [facility]; Protocol Last Admin: 03/17/19 12:10 Dose: 2 units Morphine Sulfate (Morphine Sulfate) 1 mg IVPUSH Q4H PRN PRN Reason: PAIN LEVEL 7 - 10 Pantoprazole Sodium (Protonix Iv) 40 mg IVPUSH DAILY [facility] Last Admin: 03/17/19 10:14 Dose: 40 mg Pramipexole Dihydrochloride (Mirapex -) 0.5 mg PO BID [facility] Last Admin: 03/17/19 10:14 Dose: 0.5 mg Pregabalin (Lyrica -) 50 mg PO TID [facility] Last Admin: 03/17/19 05:46 Dose: 50 mg Timolol Maleate (Timoptic 0.5%) 1 drop OU TID [facility] Last Admin: 03/17/19 05:46 Dose: 1 drop - Objective Vital Signs: Vital Signs Temperature 97.6 F 03/17/19 10:00 Pulse Rate 67 03/17/19 10:00 Respiratory Rate 20 03/17/19 10:00 Blood Pressure 144/62 03/17/19 10:00 O2 Sat by Pulse Oximetry (%) 100 03/17/19 09:00 Constitutional: Yes: Calm Eyes: Yes: Conjunctiva Clear HENT: Yes: Atraumatic Neck: Yes: Supple Cardiovascular: Yes: S1, S2 Respiratory: Yes: CTA Bilaterally Gastrointestinal: Yes: Soft, Abdomen, Obese Genitourinary: Yes: Other (ileal conduit) Musculoskeletal: Yes: WNL Neurological: Yes: Oriented Psychiatric: Yes: Oriented Labs: CBC, BMP 03/17/19 09:55 03/17/19 09:55 INR, PTT INR 1.08 (0.83-1.09) 03/15/19 16:55 Problem List - Problems (1) Abdominal pain Code(s): R10.9 - UNSPECIFIED ABDOMINAL PAIN (2) Hyperkalemia Code(s): E87.5 - HYPERKALEMIA (3) Hypertension Code(s): I10 - ESSENTIAL (PRIMARY) HYPERTENSION (4) Acute renal failure Code(s): N17.9 - ACUTE KIDNEY FAILURE, UNSPECIFIED Qualifiers: Acute renal failure type: unspecified Qualified Code(s): N17.9 - Acute kidney failure, unspecified Assessment/Plan Current Medications Generic Name Dose Route Start Last Admin Trade Name Freq PRN Reason Stop Dose Admin Acetaminophen 1,000 mg 03/15/19 10:08 03/15/19 22:31 Ofirmev Injection - IVPB 1,000 mg Q6H PRN Administration PAIN LEVEL 6-10 Brimonidine Tartrate 1 drop 03/16/19 22:00 03/17/19 05:46 Alphagan 0.2% - OU 1 drop TID [facility] Administration Calcium Carbonate/Cholecalciferol 1 tab 03/16/19 22:00 03/17/19 10:14 Os-Jay 500+D - PO 1 tab BID [facility] Administration Carbidopa/Levodopa 1 each 03/16/19 22:00 03/17/19 10:15 Sinemet 25/250 - PO 1 each BID [facility] Administration Heparin Sodium (Porcine) 5,000 unit 03/15/19 10:00 03/17/19 10:15 Heparin - SQ 5,000 unit BID [facility] Administration Hydralazine HCl 10 mg 03/15/19 02:55 Apresoline Injection - IVPUSH Q6H PRN HYPERTENSION Ceftriaxone Sodium 1 gm/ 50 mls @ 100 mls/hr 03/15/19 10:00 03/17/19 10:14 Dextrose IVPB 100 mls/hr DAILY [facility] Administration Protocol Piperacillin Sod/Tazobactam 50 mls @ 100 mls/hr 03/15/19 10:00 03/17/19 10:14 Sod 2.25 gm/ Dextrose IVPB 100 mls/hr Q8H-IV [facility] Administration Protocol Sodium Chloride 1,000 mls @ 100 mls/hr 03/16/19 13:00 03/16/19 13:43 1/2 Normal Saline IV 100 mls/hr ASDIR [facility] Administration Insulin Aspart 1 vial 03/15/19 07:00 03/17/19 12:10 Novolog Vial Sliding Scale - SQ 2 units ACHS [facility] Administration Protocol Morphine Sulfate 1 mg 03/15/19 15:56 Morphine Sulfate IVPUSH Q4H PRN PAIN LEVEL 7 - 10 Pantoprazole Sodium 40 mg 03/15/19 10:00 03/17/19 10:14 Protonix Iv IVPUSH 40 mg DAILY GLORIA Administration Pramipexole Dihydrochloride 0.5 mg 03/16/19 22:00 03/17/19 10:14 Mirapex - PO 0.5 mg BID GLORIA Administration Pregabalin 50 mg 03/16/19 22:00 03/17/19 05:46 Lyrica - PO 50 mg TID GLORIA Administration Timolol Maleate 1 drop 03/16/19 22:00 03/17/19 05:46 Timoptic 0.5% OU 1 drop TID GLORIA Administration #NATASHA in setting of volume depletion and ACEi/Diuretic #SBO #Hyperkalemia in setting of NATASHA and ACEi #CKD Plan - cont fluids - pt tolerating diet - repeat labs in a - monitor renal function - keep paige and thiazide on hold for now
[2019-03-17] MEDS: SODIUM CHLORIDE 0.45% 1,000 ML IV SCH (13:21)
--- NOTE | 2019-03-17 17:48 | PN ---
Progress Note, Physician Chief Complaint: left sided abdominal pain and nausea has resolved. patient hungry, wants to try a regular meal. 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 Patient presents to the ED on 03/15/2019 severe diffuse abddominal pain, abdominal distension, nausea, vomiting x 1 day. Patient also reported a week of foul odor from urine urostomy bag. imaging: CT A/P: shows dilated proximal small bowel, Left paramidline-hernia abd xray 03/15/19: the distended small bowel loops could represent a focal ileus through a small bowel or possible partial small bowel obstruction. - Current Medication List Current Medications: Active Medications Acetaminophen (Ofirmev Injection -) 1,000 mg IVPB Q6H PRN PRN Reason: PAIN LEVEL 6-10 Last Admin: 03/15/19 22:31 Dose: 1,000 mg Brimonidine Tartrate (Alphagan 0.2% -) 1 drop OU TID [facility] Last Admin: 03/17/19 13:20 Dose: 1 drop Calcium Carbonate/Cholecalciferol (Os-Jay 500+D -) 1 tab PO BID [facility] Last Admin: 03/17/19 10:14 Dose: 1 tab Carbidopa/Levodopa (Sinemet 25/250 -) 1 each PO BID [facility] Last Admin: 03/17/19 10:15 Dose: 1 each Heparin Sodium (Porcine) (Heparin -) 5,000 unit SQ BID [facility] Last Admin: 03/17/19 10:15 Dose: 5,000 unit Hydralazine HCl (Apresoline Injection -) 10 mg IVPUSH Q6H PRN PRN Reason: HYPERTENSION Ceftriaxone Sodium 1 gm/ (Dextrose) 50 mls @ 100 mls/hr IVPB DAILY [facility]; Protocol Last Admin: 03/17/19 10:14 Dose: 100 mls/hr Piperacillin Sod/Tazobactam (Sod 2.25 gm/ Dextrose) 50 mls @ 100 mls/hr IVPB Q8H-IV [facility]; Protocol Last Admin: 03/17/19 17:17 Dose: 100 mls/hr Sodium Chloride (1/2 Normal Saline) 1,000 mls @ 100 mls/hr IV ASDIR [facility] Last Admin: 03/17/19 13:21 Dose: 100 mls/hr Insulin Aspart (Novolog Vial Sliding Scale -) 1 vial SQ ACHS [facility]; Protocol Last Admin: 03/17/19 17:17 Dose: 2 units Morphine Sulfate (Morphine Sulfate) 1 mg IVPUSH Q4H PRN PRN Reason: PAIN LEVEL 7 - 10 Pantoprazole Sodium (Protonix Iv) 40 mg IVPUSH DAILY [facility] Last Admin: 03/17/19 10:14 Dose: 40 mg Pramipexole Dihydrochloride (Mirapex -) 0.5 mg PO BID [facility] Last Admin: 03/17/19 10:14 Dose: 0.5 mg Pregabalin (Lyrica -) 50 mg PO TID [facility] Last Admin: 03/17/19 13:20 Dose: 50 mg Timolol Maleate (Timoptic 0.5%) 1 drop OU TID [facility] Last Admin: 03/17/19 13:20 Dose: 1 drop - Objective Vital Signs: Vital Signs Temperature 97.5 F L 03/17/19 17:00 Pulse Rate 58 L 03/17/19 17:00 Respiratory Rate 20 03/17/19 17:00 Blood Pressure 131/50 L 03/17/19 17:00 O2 Sat by Pulse Oximetry (%) 100 03/17/19 09:00 Constitutional: Yes: Well Nourished, No Distress, Calm Eyes: Yes: WNL HENT: Yes: Atraumatic Neck: Yes: Supple Cardiovascular: Yes: Regular Rate and Rhythm Respiratory: Yes: Regular, CTA Bilaterally Gastrointestinal: Yes: Normal Bowel Sounds, Abdomen, Obese ...Rectal Exam: Yes: Deferred Genitourinary: Yes: WNL Labs: CBC, BMP 03/17/19 09:55 03/17/19 09:55 INR, PTT INR 1.08 (0.83-1.09) 03/15/19 16:55 Problem List - Problems (1) SBO (small bowel obstruction) Assessment/Plan: Patient presents with abdominal pain and found to have an SBO per imaging: CTAP shows multiple ventral hernias within the anterior abdominal wall containing small bowel loops, there is a partial SBO related to hernias. Abdominal xray 03/15/19: distended small bowel loops that could represent al focal ileus through a small bowel or partial small bowel obstruction. NGT removed 03/16/19 and patient tolerated clears. will advance diet to regular. Pain managed with tylenol and morphine PRN. Denies abdominal pain, + flatus, had formed brown BM today. Code(s): K56.609 - UNSP INTESTNL OBST, UNSP TO PARTIAL VERSUS COMPLETE OBST (2) Hyperkalemia Assessment/Plan: stable potassium Code(s): E87.5 - HYPERKALEMIA (3) Hypertension Assessment/Plan: restart cardiac medications Code(s): I10 - ESSENTIAL (PRIMARY) HYPERTENSION (4) Parkinsons disease Assessment/Plan: resume home meds. on sinemet BID. Code(s): G20 - PARKINSON'S DISEASE (5) Urinary tract infection Assessment/Plan: UA+. on Ceftriaxone. Urine cultures pending Ileoconduit changed q 3 days, patient changed it today. Code(s): N39.0 - URINARY TRACT INFECTION, SITE NOT SPECIFIED (6) Diabetes Assessment/Plan: novolog and levemir. diabetic diet. Code(s): E11.9 - TYPE 2 DIABETES MELLITUS WITHOUT COMPLICATIONS (7) Acute renal failure Assessment/Plan: renal dose meds. Code(s): N17.9 - ACUTE KIDNEY FAILURE, UNSPECIFIED (8) Prophylactic measure Assessment/Plan: fen advance diet to diabetic diet monitor electrolytes full [place] [facility] [place]): Z29.9 - ENCOUNTER FOR PROPHYLACTIC MEASURES, UNSPECIFIED Visit type - Emergency Visit Emergency Visit: Yes ED Registration Date: 03/15/19 Care time: The patient presented to the Emergency Department on the above date and was hospitalized for further evaluation of their emergent condition. - New Patient This patient is new to me today: No - Critical Care Critical Care patient: No - Discharge Referral Referred to [facility] Med P.C.: No
[2019-03-17] MEDS: INSULIN (LEVEMIR) 100 UNITS/ML UNITS SQ SCH (21:23)
[2019-03-17] MEDS ORDERED: ACETAMINOPHEN 500 MG TABLET (FP) PO PRN (21:51)
[2019-03-18] MEDS ORDERED: PIPERACILLIN/TAZOBACTAM 2.25 GM VIAL IVPB ONE ×2 (02:59→09:39)
[2019-03-18] MEDS ORDERED: DEXTROSE 5%-WATER - 50 ML IVPB ONE ×3 (03:00→09:39)
[2019-03-18] MEDS: PIPERACILLIN/TAZOB 2.25 GM 2.25 GM in DEXTROSE 5%-WATER - 50 ML IVPB SCH ×2 (03:04→09:49)
[2019-03-18] MEDS: SODIUM CHLORIDE 0.45% 1,000 ML IV SCH (04:31)
[2019-03-18] MEDS: INSULIN SLIDING SCALE (NOVOLOG) 1 VIAL SQ SCH ×4 (06:23→22:46)
[2019-03-18] MEDS: PREGABALIN 50 MG CAPSULE PO SCH ×3 (06:25→22:43)
[2019-03-18] MEDS: BRIMONIDINE TARTRATE 0.2% OPHTHALMIC 5 ML BOTTLE OU SCH ×3 (06:26→22:45)
[2019-03-18] MEDS: TIMOLOL 0.5% OPHTHALMIC SOL 5 ML BOTTLE OU SCH ×3 (06:26→22:45)
[2019-03-18] MEDS ORDERED: PT OWN MED DRAWER 7, Y5N ONE ×2 (09:37→22:51)
[2019-03-18] MEDS ORDERED: cefTRIAXone SODIUM 1 GM VIAL ONE (09:38)
[2019-03-18] MEDS: CEFTRIAXONE 1 GM in DEXTROSE 5%-WATER - 50 ML IVPB SCH (09:48)
[2019-03-18] MEDS: PANTOPRAZOLE SODIUM 40 MG VIAL IVPUSH SCH (09:48)
[2019-03-18] MEDS: HEPARIN NA (PORCINE) 5,000 UNITS/ML 1ML VIAL SQ SCH ×2 (09:49→23:03)
[2019-03-18] MEDS: PRAMIPEXOLE DIHYDROCHLORIDE 0.5 MG TABLET PO SCH ×2 (09:49→22:43)
[2019-03-18] MEDS: CALCIUM 500MG/VIT-D 200 UNITS COMBO TABLET (FP) PO SCH ×2 (09:49→22:44)
[2019-03-18] MEDS: CARBIDOPA/LEVODOPA 25/250 TABLET (FP) PO SCH ×2 (09:50→23:03)
--- NOTE | 2019-03-18 10:37 | PN ---
Progress Note, Physician History of Present Illness: stable no new issues - Current Medication List Current Medications: Active Medications Acetaminophen (Ofirmev Injection -) 1,000 mg IVPB Q6H PRN PRN Reason: PAIN LEVEL 6-10 Last Admin: 03/15/19 22:31 Dose: 1,000 mg Amoxicillin/Clavulanate Potassium (Augmentin - 500mg Tablet) 1 tab PO BID@0800, 1730 [facility] Brimonidine Tartrate (Alphagan 0.2% -) 1 drop OU TID [facility] Last Admin: 03/18/19 06:26 Dose: 1 drop Calcium Carbonate/Cholecalciferol (Os-Jay 500+D -) 1 tab PO BID [facility] Last Admin: 03/18/19 09:49 Dose: 1 tab Carbidopa/Levodopa (Sinemet 25/250 -) 1 each PO BID [facility] Last Admin: 03/18/19 09:50 Dose: 1 each Heparin Sodium (Porcine) (Heparin -) 5,000 unit SQ BID [facility] Last Admin: 03/18/19 09:49 Dose: 5,000 unit Hydralazine HCl (Apresoline Injection -) 10 mg IVPUSH Q6H PRN PRN Reason: HYPERTENSION Sodium Chloride (1/2 Normal Saline) 1,000 mls @ 100 mls/hr IV ASDIR [facility] Last Admin: 03/18/19 04:31 Dose: 100 mls/hr Insulin Aspart (Novolog Vial Sliding Scale -) 1 vial SQ ACHS [facility]; Protocol Last Admin: 03/18/19 06:23 Dose: Not Given Insulin Detemir (Levemir Vial) 10 units SQ HS [facility] Last Admin: 03/17/19 21:23 Dose: 10 units Morphine Sulfate (Morphine Sulfate) 1 mg IVPUSH Q4H PRN PRN Reason: PAIN LEVEL 7 - 10 Pantoprazole Sodium (Protonix Iv) 40 mg IVPUSH DAILY [facility] Last Admin: 03/18/19 09:48 Dose: 40 mg Pramipexole Dihydrochloride (Mirapex -) 0.5 mg PO BID [facility] Last Admin: 03/18/19 09:49 Dose: 0.5 mg Pregabalin (Lyrica -) 50 mg PO TID [facility] Last Admin: 03/18/19 06:25 Dose: 50 mg Timolol Maleate (Timoptic 0.5%) 1 drop OU TID [facility] Last Admin: 03/18/19 06:26 Dose: 1 drop - Objective Vital Signs: Vital Signs Temperature 97.8 F 03/18/19 05:00 Pulse Rate 61 03/18/19 05:00 Respiratory Rate 20 03/18/19 05:00 Blood Pressure 127/50 L 03/18/19 05:00 O2 Sat by Pulse Oximetry (%) 100 03/17/19 21:00 Constitutional: Yes: No Distress, Calm Cardiovascular: Yes: S1, S2 Respiratory: Yes: Regular, CTA Bilaterally Gastrointestinal: Yes: Normal Bowel Sounds, Soft Neurological: Yes: Alert, Oriented Psychiatric: Yes: Alert, Oriented Labs: CBC, BMP 03/17/19 09:55 03/17/19 09:55 INR, PTT INR 1.08 (0.83-1.09) 03/15/19 16:55 Assessment/Plan abd pain uti int obstruction obesity plan will switch to oral augmentin rest as per the team improving
[2019-03-18 11:13] LABS: BASO % 0.2 % (0-2.0); EOS % 2.8 % (0-4.5); HEMATOCRIT 27.6 % (32.4-45.2); LYMPH % 22.6 % (8-40); MCH 28.7 pg (25.7-33.7); MCHC 32.6 g/dl (32.0-36.0); MEAN CELL VOLUME 88.1 fl (80-96); MEAN PLT VOLUME 9.2 fl (7.5-11.1); MONO % 8.7 % (3.8-10.2); NEUT % 65.7 % (42.8-82.8); PLATELET COUNT 157 K/MM3 (134-434); RBC 3.13 M/mm3 (3.60-5.2); RDW 16.5 % (11.6-15.6); WHITE BLOOD COUNT 4.1 K/mm3 (4.0-10.0)
[2019-03-18 11:50] LABS: ALBUMIN 2.4 g/dl (3.4-5.0); BILIRUBIN,TOTAL 0.3 mg/dL (0.2-1); BLOOD UREA NITROGEN 11.9 mg/dL (7-18); CALCIUM 8.1 mg/dL (8.5-10.1); CREATININE 1.5 mg/dL (0.55-1.3); MAGNESIUM 1.8 mg/dL (1.8-2.4); POTASSIUM 4.1 mmol/L (3.5-5.1); TOT PROT 5.6 g/dl (6.4-8.2)
[2019-03-18] MEDS ORDERED: SODIUM CHLORIDE 0.45% 1,000 ML IV SCH (12:43)
--- NOTE | 2019-03-18 12:51 | DS ---
Physical Exam: SUBJECTIVE: Patient seen and examined at the bedside. feels well, no abdominal pain. had two formed brown BMs yesterday. no pain with palpation of abdomen. OBJECTIVE: discharge home on 03/19/2019 pending home care manager set up. Vital Signs Period Temp Pulse Resp BP Sys/Adorno Pulse Ox Last 24 Hr 97.5 F-98.2 F 56-61 20-20 115-138/50-62 98-100 PHYSICAL EXAM GENERAL: The patient is awake, alert, and fully oriented, in no acute distress. HEAD: Normal with no signs of trauma. EYES: PERRL, extraocular movements intact, sclera anicteric, conjunctiva clear. ENT: Ears normal, nares patent, oropharynx clear without exudates, moist mucous membranes. NECK: Trachea midline, full range of motion, supple. LUNGS: Breath sounds equal, clear to auscultation bilaterally HEART: Regular rate and rhythm ABDOMEN: Soft, nontender, nondistended, normoactive bowel sounds, no guarding, no rebound, no hepatosplenomegaly, no masses. Stoma pink EXTREMITIES: no edema. NEUROLOGICAL: Normal speech, gait not observed. PSYCH: Normal mood, normal affect. SKIN: Warm, dry, normal turgor, no rashes or lesions noted. LABS Laboratory Results - last 24 hr 03/17/19 03/17/19 03/18/19 17:06 21:21 05:15 WBC RBC Hgb Hct MCV MCH MCHC RDW Plt Count MPV Absolute Neuts (auto) Neutrophils % Lymphocytes % Monocytes % Eosinophils % Basophils % Nucleated RBC % Sodium Potassium Chloride Carbon Dioxide Anion Gap BUN Creatinine Est GFR (CKD-EPI)AfAm Est GFR (CKD-EPI)NonAf POC Glucometer 180 207 120 Random Glucose Calcium Magnesium Total Bilirubin AST ALT Alkaline Phosphatase Total Protein Albumin 03/18/19 03/18/19 03/18/19 10:50 10:50 11:04 WBC 4.1 RBC 3.13 L Hgb 9.0 L Hct 27.6 L MCV 88.1 MCH 28.7 MCHC 32.6 RDW 16.5 H Plt Count 157 MPV 9.2 Absolute Neuts (auto) 2.7 Neutrophils % 65.7 Lymphocytes % 22.6 D Monocytes % 8.7 Eosinophils % 2.8 Basophils % 0.2 Nucleated RBC % 0 Sodium 140 Potassium 4.1 Chloride 109 H Carbon Dioxide 27 Anion Gap 5 L BUN 11.9 Creatinine 1.5 H Est GFR (CKD-EPI)AfAm 38.01 Est GFR (CKD-EPI)NonAf 32.79 POC Glucometer 201 Random Glucose 206 H Calcium 8.1 L Magnesium 1.8 Total Bilirubin 0.3 AST 16 ALT 15 Alkaline Phosphatase 151 H Total Protein 5.6 L Albumin 2.4 L HOSPITAL COURSE: Date of Admission:03/15/19 Date of Discharge: 03/19/19 Patient is a 78 year old female with a significant past medical history of hypertension, GERD, diabetes, bladder cancer (s/p radiation, radical cystectomy , with ieloconduit), 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 Patient presents to the ED on 03/15/2019 severe diffuse abdominal pain, abdominal distension, nausea, vomiting x 1 day. Patient also reported a week of foul odor from urine urostomy bag. imaging: CT A/P: shows dilated proximal small bowel, Left paramidline-hernia abd xray 03/15/19: the distended small bowel loops could represent a focal ileus through a small bowel or possible partial small bowel obstruction. HOSPITAL COURSE BY PROBLEM LIST: DISCHARGE PLAN: discharge home on 03/19/2019. follow up with surgeon regarding hernias. she will need close monitoring of her renal function also (Dr. Francesco Calles) Minutes to complete discharge: 60 Discharge Summary Reason For Visit: URINARY TRACT INFECTION,HERNIA,SMALL BOWEL Current Active Problems Abdominal pain (Acute) Acute renal failure (Acute) Diabetes (Acute) Hernia (Acute) Hyperkalemia (Acute) Hypertension (Acute) Parkinsons disease (Acute) Prophylactic measure (Acute) Prophylactic measure (Acute) SBO (small bowel obstruction) (Acute) Urinary tract infection (Acute) Condition: Good - Instructions Diet, Activity, Other Instructions: Ms Acuña: You were admitted to [facility] for abdominal pain and were found to have a bowel obstruction. Here are our recommendations for discharge. abdominal pain: You were found to have a small bowel obstruction. We treated you with bowel rest an an NG tube and advanced your diet. We recommend that you follow up with surgery (Dr. Jordan) by calling his office and making an appointment for post hospital follow up. Acute Kidney injury: During your hospitalization, we noted that your kidney function was elevated which means you were in acute kidney injury. We stopped your Lisinopril, hydrochlorothiazide and lasix. We hydrated you and repeated your kidney function which is now more stable. It is important that you follow up with the renal specialist as an outpatient. You can continue your medications for your blood pressure, however, it is important that you check your kidney function to assure that they stay stable. Your PCP can decide if you should continue taking these medications. Urinary tract infection: We noted that you had a urinary tract infection on your urine cultures. We treated you with ceftriaxone IV and we will be converting you to Augmentin 500mg for 5 more days. TAKE THIS MEDICATION TWICE PER DAY FOR 5 DAYS. DO NOT SKIP DOSES. (STARTED ON 03/18/2019 AND TO BE COMPLETED ON March). Continue taking the BACID and Protonix. Thank you for allowing us to care for you. Referrals: Pranav Jordan MD [Staff Physician] - (surgery follow up) Stevan Maya MD [Staff Physician] - (renal doc, call office to make appt) Disposition: HOME - Home Medications Comprehensive Discharge Medication List: Ambulatory Orders Multivitamins [Multivit ([facility] Formulary)] 1 mg PO DAILY 05/08/17 Pregabalin [Lyrica -] 50 mg PO TID 05/08/17 Calcium Carbonate/Vitamin D3 [Calcium 600 + Vit D 400 Softgl] 600 mg PO BID Furosemide [Lasix -] 40 mg PO DAILY PRN 11/17/18 Brimonidine Tartrate/Timolol [Combigan 0.2%-0.5% Eye Drops] 1 drop OU TID Fluticasone Furoate [Arnuity Ellipta] 1 spray NS DAILY PRN 02/06/19 Insulin Lispro Protamin/Lispro [Humalog Mix 75-25 Kwikpen] 27 unit SQ HS Insulin Lispro Protamin/Lispro [Humalog Mix 75-25 Kwikpen] 30 unit SQ AM Lisinopril/Hydrochlorothiazide [Lisinopril-Hctz 10-12.5 mg Tab] 1 tablet PO DAILY 02/06/19 Carbidopa/Levodopa [Carbidopa-Levodopa 25-250 Tab] 1 each PO BID 03/15/19 Diphenhydramine [Benadryl 12.5 MG/5 ML Oral Solution -] 12.5 mg PO PRN 03/15/19 Omeprazole 40 mg PO BID 03/15/19 Pramipexole Dihydrochloride [Mirapex -] 0.5 mg PO BID 03/15/19 Amox-Tr/K Cl [Augmentin 500-125mg Tablet -] 1 tab PO BID@0800,1730 #10 tablet Brimonidine Tartrate [Alphagan 0.2% -] 1 drop OU TID drops 03/18/19 Hydrochlorothiazide [Hctz -] 12.5 mg PO DAILY cap 03/18/19 Lisinopril [Prinivil] 10 mg PO DAILY tablet 03/18/19 Timolol 0.5% [Timoptic 0.5%] 1 drop OU TID drops 03/18/19 Problem List - Problems (1) SBO (small bowel obstruction) Assessment/Plan: resolved. tolerating diet. having bms. no abdominal pain, or bloating. no nausea or vomiting. Code(s): K56.609 - UNSP INTESTNL OBST, UNSP TO PARTIAL VERSUS COMPLETE OBST (2) Hyperkalemia Assessment/Plan: resolved. Code(s): E87.5 - HYPERKALEMIA (3) Hypertension Assessment/Plan: controlled. start home meds and follow up with PCP to determine continuation of cardiac medications. Code(s): I10 - ESSENTIAL (PRIMARY) HYPERTENSION (4) Parkinsons disease Assessment/Plan: continue home meds Code(s): G20 - PARKINSON'S DISEASE (5) Urinary tract infection Assessment/Plan: continue augmentin 500mg BID x 5 days Code(s): N39.0 - URINARY TRACT INFECTION, SITE NOT SPECIFIED (6) Diabetes Assessment/Plan: continue home meds Code(s): E11.9 - TYPE 2 DIABETES MELLITUS WITHOUT COMPLICATIONS (7) Acute renal failure Assessment/Plan: improving. ivf today, then PO tomorrow. re check labs in a.m. patient to follow up with Dr. Francesco Calles to assure kidney function remains stable Code(s): N17.9 - ACUTE KIDNEY FAILURE, UNSPECIFIED (8) Prophylactic measure Code(s): Z29.9 - ENCOUNTER FOR PROPHYLACTIC MEASURES, UNSPECIFIED This patient is new to me today: No Emergency Visit: Yes ED Registration Date: 03/15/19 Care time: The patient presented to the Emergency Department on the above date and was hospitalized for further evaluation of their emergent condition. Critical Care patient: No - Discharge Referral Referred to [facility] Med P.C.: No
--- NOTE | 2019-03-18 12:52 | PN ---
Progress Note (short form) - Note Progress Note: Renal follow up for NATASHA on CKD Pt seen and examined at the bedside awake and alert fells better no abd pain, tolerating oral diet having BM's Vital Signs Temperature 97.8 F 03/18/19 09:00 Pulse Rate 56 L 03/18/19 09:00 Respiratory Rate 20 03/18/19 09:00 Blood Pressure 115/51 L 03/18/19 09:00 O2 Sat by Pulse Oximetry (%) 98 03/18/19 09:00 Intake & Output 03/15/19 03/16/19 03/17/19 03/18/19 23:59 23:59 23:59 23:59 Intake Total 825 2250 2830 1250 Output Total 2800 1300 1200 Balance -8651 926 5952 1250 Weight 117.163 kg 117.027 kg NAD awake and alert neck supple, no JVD RRR CTA No LE edema CBC, BMP 03/18/19 10:50 03/18/19 10:50 Current Medications Acetaminophen (Ofirmev Injection -) 1,000 mg IVPB Q6H PRN PRN Reason: PAIN LEVEL 6-10 Last Admin: 03/15/19 22:31 Dose: 1,000 mg Amoxicillin/Clavulanate Potassium (Augmentin - 500mg Tablet) 1 tab PO BID@0800, 1730 [facility] Brimonidine Tartrate (Alphagan 0.2% -) 1 drop OU TID [facility] Last Admin: 03/18/19 06:26 Dose: 1 drop Calcium Carbonate/Cholecalciferol (Os-Jay 500+D -) 1 tab PO BID [facility] Last Admin: 03/18/19 09:49 Dose: 1 tab Carbidopa/Levodopa (Sinemet 25/250 -) 1 each PO BID [facility] Last Admin: 03/18/19 09:50 Dose: 1 each Heparin Sodium (Porcine) (Heparin -) 5,000 unit SQ BID [facility] Last Admin: 03/18/19 09:49 Dose: 5,000 unit Hydralazine HCl (Apresoline Injection -) 10 mg IVPUSH Q6H PRN PRN Reason: HYPERTENSION Sodium Chloride (1/2 Normal Saline) 1,000 mls @ 60 mls/hr IV ASDIR [facility] Insulin Aspart (Novolog Vial Sliding Scale -) 1 vial SQ ACHS [facility]; Protocol Last Admin: 03/18/19 12:02 Dose: 4 units Insulin Detemir (Levemir Vial) 10 units SQ HS [facility] Last Admin: 03/17/19 21:23 Dose: 10 units Morphine Sulfate (Morphine Sulfate) 1 mg IVPUSH Q4H PRN PRN Reason: PAIN LEVEL 7 - 10 Pantoprazole Sodium (Protonix Iv) 40 mg IVPUSH DAILY [facility] Last Admin: 03/18/19 09:48 Dose: 40 mg Pramipexole Dihydrochloride (Mirapex -) 0.5 mg PO BID [facility] Last Admin: 03/18/19 09:49 Dose: 0.5 mg Pregabalin (Lyrica -) 50 mg PO TID [facility] Last Admin: 03/18/19 06:25 Dose: 50 mg Timolol Maleate (Timoptic 0.5%) 1 drop OU TID [facility] Last Admin: 03/18/19 06:26 Dose: 1 drop 78 year old woman with history of bladder cancer s/p cystoectomy and ieloconduit, CVA (hemorrhagic), Hx of DVT, CKD presented with abd pain and found to have SBO with NATASHA and hyperkalemia. #NATASHA in setting of volume depletion and ACEi/Diuretic #SBO #Hyperkalemia in setting of NATASHA and ACEi #CKD Renal function improved no overt electrolyte or acid/base disturbance will decrease IVF rate to 60cc per hour oral intake as tolerated Surgical follow up Thank you Stevan Maya DO
[2019-03-18] MEDS: AMOX TR/POT CLAV 500MG/125MG TABLETS (FP) PO SCH (17:28)
[2019-03-18] MEDS ORDERED: AMOX TR/POT CLAV 875MG/125MG TABLETS (FP) PO SCH (17:30)
[2019-03-18] MEDS: PANTOPRAZOLE 40 MG TABLET (FP) PO SCH (22:43)
[2019-03-18] MEDS: INSULIN (LEVEMIR) 100 UNITS/ML UNITS SQ SCH (22:45)
[2019-03-19 05:17] VITALS: BP 130/72; PULSE 61; TEMP 98
[2019-03-19] MEDS: PREGABALIN 50 MG CAPSULE PO SCH (06:35)
[2019-03-19] MEDS: INSULIN SLIDING SCALE (NOVOLOG) 1 VIAL SQ SCH (06:36)
[2019-03-19] MEDS: TIMOLOL 0.5% OPHTHALMIC SOL 5 ML BOTTLE OU SCH (06:40)
[2019-03-19] MEDS: BRIMONIDINE TARTRATE 0.2% OPHTHALMIC 5 ML BOTTLE OU SCH (06:40)
[2019-03-19 07:43] LABS: BASO % 0.4 % (0-2.0); EOS % 2.8 % (0-4.5); HEMATOCRIT 28.5 % (32.4-45.2); HEMOGLOBIN 9.3 GM/dL (10.7-15.3); LYMPH % 22.7 % (8-40); MCH 28.7 pg (25.7-33.7); MCHC 32.5 g/dl (32.0-36.0); MEAN CELL VOLUME 88.3 fl (80-96); MEAN PLT VOLUME 9.5 fl (7.5-11.1); MONO % 8.5 % (3.8-10.2); NEUT % 65.6 % (42.8-82.8); PLATELET COUNT 166 K/MM3 (134-434); RBC 3.23 M/mm3 (3.60-5.2); RDW 15.8 % (11.6-15.6); WHITE BLOOD COUNT 4.5 K/mm3 (4.0-10.0)
[2019-03-19 08:15] LABS: ALBUMIN 2.6 g/dl (3.4-5.0); BILIRUBIN,TOTAL 0.3 mg/dL (0.2-1); BLOOD UREA NITROGEN 11.2 mg/dL (7-18); CALCIUM 8.4 mg/dL (8.5-10.1); CREATININE 1.4 mg/dL (0.55-1.3); MAGNESIUM 1.8 mg/dL (1.8-2.4)
[2019-03-19] MEDS ORDERED: PT OWN MED DRAWER 7, Y5N ONE (09:04)
[2019-03-19] MEDS: HEPARIN NA (PORCINE) 5,000 UNITS/ML 1ML VIAL SQ SCH (09:07)
[2019-03-19] MEDS: AMOX TR/POT CLAV 500MG/125MG TABLETS (FP) PO SCH (09:07)
[2019-03-19] MEDS: PANTOPRAZOLE 40 MG TABLET (FP) PO SCH (09:07)
[2019-03-19] MEDS: PRAMIPEXOLE DIHYDROCHLORIDE 0.5 MG TABLET PO SCH (09:07)
[2019-03-19] MEDS: CALCIUM 500MG/VIT-D 200 UNITS COMBO TABLET (FP) PO SCH (09:08)
[2019-03-19] MEDS: CARBIDOPA/LEVODOPA 25/250 TABLET (FP) PO SCH (09:08)
--- NOTE | 2019-03-19 09:21 | PN ---
Physical Exam: SUBJECTIVE: Patient seen and examined. Plan for discharge to home today OBJECTIVE: Vital Signs Period Temp Pulse Resp BP Sys/Adorno Pulse Ox Last 24 Hr 97.5 F-98 F 52-72 20-20 119-145/55-78 98 PHYSICAL EXAM GENERAL: The patient is awake, alert, and fully oriented, in no acute distress. HEAD: Normal with no signs of trauma. EYES: PERRL, extraocular movements intact, sclera anicteric, conjunctiva clear. ENT: Ears normal, nares patent, oropharynx clear without exudates, moist mucous membranes. NECK: Trachea midline, full range of motion, supple. LUNGS: Breath sounds equal, clear to auscultation bilaterally HEART: Regular rate and rhythm ABDOMEN: Soft, nontender, nondistended, normoactive bowel sounds, no guarding, no rebound, no hepatosplenomegaly, no masses. Stoma pink EXTREMITIES: no edema. NEUROLOGICAL: Normal speech, gait not observed. PSYCH: Normal mood, normal affect. SKIN: Warm, dry, normal turgor, no rashes or lesions noted. LABS Laboratory Results - last 24 hr 03/18/19 03/18/19 03/18/19 10:50 10:50 11:04 WBC 4.1 RBC 3.13 L Hgb 9.0 L Hct 27.6 L MCV 88.1 MCH 28.7 MCHC 32.6 RDW 16.5 H Plt Count 157 MPV 9.2 Absolute Neuts (auto) 2.7 Neutrophils % 65.7 Lymphocytes % 22.6 D Monocytes % 8.7 Eosinophils % 2.8 Basophils % 0.2 Nucleated RBC % 0 Sodium 140 Potassium 4.1 Chloride 109 H Carbon Dioxide 27 Anion Gap 5 L BUN 11.9 Creatinine 1.5 H Est GFR (CKD-EPI)AfAm 38.01 Est GFR (CKD-EPI)NonAf 32.79 POC Glucometer 201 Random Glucose 206 H Calcium 8.1 L Magnesium 1.8 Total Bilirubin 0.3 AST 16 ALT 15 Alkaline Phosphatase 151 H Total Protein 5.6 L Albumin 2.4 L 03/18/19 03/18/19 03/19/19 17:20 22:42 06:00 WBC 4.5 RBC 3.23 L Hgb 9.3 L Hct 28.5 L MCV 88.3 MCH 28.7 MCHC 32.5 RDW 15.8 H Plt Count 166 MPV 9.5 Absolute Neuts (auto) 2.9 Neutrophils % 65.6 Lymphocytes % 22.7 Monocytes % 8.5 Eosinophils % 2.8 Basophils % 0.4 Nucleated RBC % 0 Sodium Potassium Chloride Carbon Dioxide Anion Gap BUN Creatinine Est GFR (CKD-EPI)AfAm Est GFR (CKD-EPI)NonAf POC Glucometer 161 209 Random Glucose Calcium Magnesium Total Bilirubin AST ALT Alkaline Phosphatase Total Protein Albumin 03/19/19 03/19/19 06:00 06:25 WBC RBC Hgb Hct MCV MCH MCHC RDW Plt Count MPV Absolute Neuts (auto) Neutrophils % Lymphocytes % Monocytes % Eosinophils % Basophils % Nucleated RBC % Sodium 144 Potassium 4.0 Chloride 111 H Carbon Dioxide 27 Anion Gap 6 L BUN 11.2 Creatinine 1.4 H Est GFR (CKD-EPI)AfAm 41.31 Est GFR (CKD-EPI)NonAf 35.65 POC Glucometer 99 Random Glucose 92 Calcium 8.4 L Magnesium 1.8 Total Bilirubin 0.3 AST 11 L ALT 12 L Alkaline Phosphatase 152 H Total Protein 6.0 L Albumin 2.6 L Active Medications Generic Name Dose Route Start Last Admin Trade Name Freq PRN Reason Stop Dose Admin Acetaminophen 1,000 mg 03/15/19 10:08 03/15/19 22:31 Ofirmev Injection - IVPB 1,000 mg Q6H PRN Administration PAIN LEVEL 6-10 Amoxicillin/Clavulanate Potassium 1 tab 03/18/19 17:30 03/19/19 09:07 Augmentin - 500mg Tablet PO 1 tab BID@0800,1730 [facility] Administration Brimonidine Tartrate 1 drop 03/16/19 22:00 03/19/19 06:40 Alphagan 0.2% - OU 1 drop TID [facility] Administration Calcium Carbonate/Cholecalciferol 1 tab 03/16/19 22:00 03/19/19 09:08 Os-Jay 500+D - PO 1 tab BID [facility] Administration Carbidopa/Levodopa 1 each 03/16/19 22:00 03/19/19 09:08 Sinemet 25/250 - PO 1 each BID [facility] Administration Heparin Sodium (Porcine) 5,000 unit 03/15/19 10:00 03/19/19 09:07 Heparin - SQ 5,000 unit BID [facility] Administration Hydralazine HCl 10 mg 03/15/19 02:55 Apresoline Injection - IVPUSH Q6H PRN HYPERTENSION Sodium Chloride 1,000 mls @ 60 mls/hr 03/18/19 12:43 03/18/19 13:48 1/2 Normal Saline IV 60 mls/hr ASDIR [facility] Administration Insulin Aspart 1 vial 03/15/19 07:00 03/19/19 06:36 Novolog Vial Sliding Scale - SQ Not Given ACHS [facility] Protocol Insulin Detemir 10 units 03/17/19 22:00 03/18/19 22:45 Levemir Vial SQ 10 units HS [facility] Administration Morphine Sulfate 1 mg 03/15/19 15:56 Morphine Sulfate IVPUSH Q4H PRN PAIN LEVEL 7 - 10 Pantoprazole Sodium 40 mg 03/18/19 22:00 03/19/19 09:07 Protonix - PO 40 mg BID [facility] Administration Pramipexole Dihydrochloride 0.5 mg 03/16/19 22:00 03/19/19 09:07 Mirapex - PO 0.5 mg BID [facility] Administration Pregabalin 50 mg 03/16/19 22:00 03/19/19 06:35 Lyrica - PO 50 mg TID [facility] Administration Timolol Maleate 1 drop 03/16/19 22:00 03/19/19 06:40 Timoptic 0.5% OU 1 drop TID [facility] Administration ASSESSMENT/PLAN: Problem List - Problems (1) SBO (small bowel obstruction) Assessment/Plan: resolved. tolerating diet. having bms. no abdominal pain, or bloating. no nausea or vomiting. Code(s): K56.609 - UNSP INTESTNL OBST, UNSP TO PARTIAL VERSUS COMPLETE OBST (2) Hyperkalemia Assessment/Plan: resolved. Code(s): E87.5 - HYPERKALEMIA (3) Hypertension Assessment/Plan: controlled. continue home meds and follow up with PCP to determine continuation of cardiac medications. Code(s): I10 - ESSENTIAL (PRIMARY) HYPERTENSION (4) Parkinsons disease Assessment/Plan: continue home meds Code(s): G20 - PARKINSON'S DISEASE (5) Urinary tract infection Assessment/Plan: continue augmentin 500mg BID x 4 additional days Code(s): N39.0 - URINARY TRACT INFECTION, SITE NOT SPECIFIED (6) Diabetes Assessment/Plan: continue home meds Code(s): E11.9 - TYPE 2 DIABETES MELLITUS WITHOUT COMPLICATIONS (7) Acute renal failure Assessment/Plan: Improved. patient to follow up with Dr. Francesco Calles to assure kidney function remains stable Code(s): N17.9 - ACUTE KIDNEY FAILURE, UNSPECIFIED (8) Prophylactic measure Code(s): Z29.9 - ENCOUNTER FOR PROPHYLACTIC MEASURES, UNSPECIFIED This patient is new to me today: No Problem List - Problems (1) Acute renal failure Code(s): N17.9 - ACUTE KIDNEY FAILURE, UNSPECIFIED (2) Diabetes Code(s): E11.9 - TYPE 2 DIABETES MELLITUS WITHOUT COMPLICATIONS (3) Hypertension Code(s): I10 - ESSENTIAL (PRIMARY) HYPERTENSION (4) Parkinsons disease Code(s): G20 - PARKINSON'S DISEASE (5) SBO (small bowel obstruction) Code(s): K56.609 - UNSP INTESTNL OBST, UNSP TO PARTIAL VERSUS COMPLETE OBST (6) Urinary tract infection Code(s): N39.0 - URINARY TRACT INFECTION, SITE NOT SPECIFIED Visit type - Emergency Visit Emergency Visit: Yes ED Registration Date: 03/15/19 Care time: The patient presented to the Emergency Department on the above date and was hospitalized for further evaluation of their emergent condition. - New Patient This patient is new to me today: Yes Date on this admission: 03/19/19 - Critical Care Critical Care patient: No - Discharge Referral Referred to [facility] No
--- NOTE | 2019-03-19 12:02 | PN ---
Progress Note, Physician - Current Medication List Current Medications: Active Medications Acetaminophen (Ofirmev Injection -) 1,000 mg IVPB Q6H PRN PRN Reason: PAIN LEVEL 6-10 Last Admin: 03/15/19 22:31 Dose: 1,000 mg Amoxicillin/Clavulanate Potassium (Augmentin - 500mg Tablet) 1 tab PO BID@0800, 1730 [facility] Last Admin: 03/19/19 09:07 Dose: 1 tab Brimonidine Tartrate (Alphagan 0.2% -) 1 drop OU TID [facility] Last Admin: 03/19/19 06:40 Dose: 1 drop Calcium Carbonate/Cholecalciferol (Os-Jay 500+D -) 1 tab PO BID [facility] Last Admin: 03/19/19 09:08 Dose: 1 tab Carbidopa/Levodopa (Sinemet 25/250 -) 1 each PO BID [facility] Last Admin: 03/19/19 09:08 Dose: 1 each Heparin Sodium (Porcine) (Heparin -) 5,000 unit SQ BID [facility] Last Admin: 03/19/19 09:07 Dose: 5,000 unit Hydralazine HCl (Apresoline Injection -) 10 mg IVPUSH Q6H PRN PRN Reason: HYPERTENSION Sodium Chloride (1/2 Normal Saline) 1,000 mls @ 60 mls/hr IV ASDIR [facility] Last Admin: 03/18/19 13:48 Dose: 60 mls/hr Insulin Aspart (Novolog Vial Sliding Scale -) [address] [facility]; Protocol Last Admin: 03/19/19 06:36 Dose: Not Given Insulin Detemir (Levemir Vial) 10 units SQ HS [facility] Last Admin: 03/18/19 22:45 Dose: 10 units Morphine Sulfate (Morphine Sulfate) 1 mg IVPUSH Q4H PRN PRN Reason: PAIN LEVEL 7 - 10 Pantoprazole Sodium (Protonix -) 40 mg PO BID [facility] Last Admin: 03/19/19 09:07 Dose: 40 mg Pramipexole Dihydrochloride (Mirapex -) 0.5 mg PO BID [facility] Last Admin: 03/19/19 09:07 Dose: 0.5 mg Pregabalin (Lyrica -) 50 mg PO TID [facility] Last Admin: 03/19/19 06:35 Dose: 50 mg Timolol Maleate (Timoptic 0.5%) 1 drop OU TID [facility] Last Admin: 03/19/19 06:40 Dose: 1 drop - Objective Vital Signs: Vital Signs Temperature 98 F 03/19/19 05:15 Pulse Rate 61 03/19/19 05:15 Respiratory Rate 20 03/19/19 05:15 Blood Pressure 130/72 03/19/19 05:15 O2 Sat by Pulse Oximetry (%) 98 03/18/19 21:00 Labs: CBC, BMP 03/19/19 06:00 03/19/19 06:00 INR, PTT INR 1.08 (0.83-1.09) 03/15/19 16:55
== END 2019-03-19 13:05 | disposition home or self-care (01) | DRG 389 ==
LOC: JER 21:30 → JERBED 03-15 01:40 → J8W 03-15 04:58 → J4W 03-15 15:29
PROVIDERS: ADMIT Internal Medicine; ATTEND Nurse Practitioner Acute Care
DX: K56.609 Unspecified intestinal obstruction, unspecified as to partial versus complete obstruction (principal); N17.9 Acute kidney failure, unspecified; N39.0 Urinary tract infection, site not specified; Z68.42 Body mass index [BMI] 45.0-49.9, adult; E87.5 Hyperkalemia; G20 Parkinson's disease; Z29.9 Encounter for prophylactic measures, unspecified; E11.649 Type 2 diabetes mellitus with hypoglycemia without coma; Z85.51 Personal history of malignant neoplasm of bladder; E66.01 Morbid (severe) obesity due to excess calories; K43.2 Incisional hernia without obstruction or gangrene; K56.7 Ileus, unspecified; K21.9 Gastro-esophageal reflux disease without esophagitis; I12.9 Hypertensive chronic kidney disease with stage 1 through stage 4 chronic kidney disease, or unspecified chronic kidney disease; N18.9 Chronic kidney disease, unspecified
CPT/HCPCS: 36415; 71045-TC-FY; 74019-TC-FY; 74176-TC; 80048; 80053; 81003; 82962; 83605; 83690; 83735; 84132; 85025; 85610; 85730; 86850; 86900; 86901; 87040; 87086; 87186; 93005; 93010; 99285-25; J0131; J1644; J7030

== ENCOUNTER 2020-02-20 13:08 | Emergency (ER) | payer OTHER ==
[2020-02-20 13:32] VITALS: BMI 49.6
--- NOTE | 2020-02-20 13:51 | PDOC ---
History of Present Illness - General Chief Complaint: Pain Stated Complaint: ABDOMINAL PAIN, UTI History Source: Patient Exam Limitations: No Limitations - History of Present Illness Initial Comments: 02/20/20 13:47 Chandni Acuña is an 79F with PMH bladder cancer s/p bladder resection and urostomy, multiple SBO/UTI, and HTN/HLD, presenting with abdominal pain, nausea, vomiting. Daughter at bedside as primary 911 emergency services dispatcher. Patient reports that she had severe L>R abdominal pain with nausea and vomiting, poor PO intake, diarrhea, consistent with her prior SBO. Is s/p bladder resection 2005 for bladder CA, has multiple hernias and were not repaired 2/2 recommendation to not pursue this. Has been at [facility] multiple times for SBO and decompression, as well as UTI 2/[address] Lamberto Gomez for Urology and has been seen by Dr. Jordan for surgery. Denies chest pain, palpitations, fever, chills, dizziness. No sick contacts at home, no known covid-19 exposure. Urine output through ostomy has been good and without evidence of pus or blood. Denies alcohol/drug/tobacco use. Past History - Medical History Allergies/Adverse Reactions: Allergies Allergy/AdvReac Type Severity Reaction Status Date / Time latex Allergy Verified 02/20/20 13:31 Home Medications: Ambulatory Orders Multivitamins [Multivit ([facility] Formulary)] 1 mg PO DAILY 05/08/17 Pregabalin [Lyrica -] 50 mg PO TID 05/08/17 Calcium Carbonate/Vitamin D3 [Calcium 600 + Vit D 400 Softgl] 600 mg PO BID 03/15/18 Furosemide [Lasix -] 40 mg PO DAILY PRN 11/17/18 Brimonidine Tartrate/Timolol [Combigan 0.2%-0.5% Eye Drops] 1 drop OU TID 02/06/19 Fluticasone Furoate [Arnuity Ellipta] 1 spray NS DAILY PRN 02/06/19 Insulin Lispro Protamin/Lispro [Humalog Mix 75-25 Kwikpen] 20 unit SQ HS 02/06/19 Insulin Lispro Protamin/Lispro [Humalog Mix 75-25 Kwikpen] 30 unit SQ AM 02/06/19 Lisinopril/Hydrochlorothiazide [Lisinopril-Hctz 10-12.5 mg Tab] 1 tablet PO DAILY 02/06/19 Omeprazole 40 mg PO BID 03/15/19 Pramipexole Dihydrochloride [Mirapex -] 0.5 mg PO BID 03/15/19 Ciclopirox/Clobetasol/Salicyl [Ciclopir0.77%-Clob0.05%-Salc3%] 1 appful TP BID 02/20/20 Halobetasol Propionate 1 applic TP DAILY 02/20/20 Loperamide HCl [Imodium -] 2 mg PO DAILY 02/20/20 Anemia: No Asthma: No Cancer: Yes (BLADDER) Cardiac Disorders: No CVA: Yes (2017, SAH) COPD: No CHF: No Dementia: No Diabetes: Yes GI Disorders: Yes (GERD, SBO's) Disorders: Yes (ileal conduit) HTN: Yes Hypercholesterolemia: No Liver Disease: No Seizures: No Thyroid Disease: No - Surgical History Abdominal Surgery: Yes Appendectomy: No Cardiac Surgery: No Cholecystectomy: Yes Lung Surgery: No Neurologic Surgery: No Orthopedic Surgery: Yes (R KNEE REPLACEMENT w/ revisions) - Immunization History Td Vaccination: Yes TDAP Vaccination: Yes Immunization Up to Date: Yes - Psycho-Social/Smoking History Smoking Status: No Smoking History: Never smoked Have you smoked in the past 12 months: No Number of Cigarettes Smoked Daily: 0 Information on smoking cessation initiated: No - Substance Abuse Hx (Audit-C & DAST Scrn) How often the patient has a drink containing alcohol: Never Score: In Men: 4 or > Positive; In Women: 3 or > Positive: 0 Screen Result (Pos requires Nsg. Audit-10AR): Negative In the last yr the pt used illegal drug/Rx for NonMed reason: No Score: Yes response is considered Positive: 0 Screen Result (Positive result requires Nsg. DAST-10): Negative Review of Systems - Review of Systems Able to Perform ROS?: Yes Constitutional: No: Chills, Fever HEENTM: No: Eye Pain, Tearing, Ear Pain Respiratory: No: Cough, Shortness of Breath Cardiac (ROS): No: Chest Pain, Edema, Irregular Heart Rate, Lightheadedness, Palpitations, Syncope ABD/GI: Yes: Diarrhea, Nausea, Vomiting, Abdominal cramping. No: Poor Appetite, Poor Fluid Intake : No: Burning, Dysuria, Discharge, Flank Pain, Hematuria Musculoskeletal: Yes: Back Pain Integumentary: No: Symptoms Reported Neurological: No: Symptoms reported Endocrine: No: Symptoms Reported Hematologic/Lymphatic: No: Symptoms Reported All Other Systems: Reviewed and Negative *Physical Exam - Vital Signs Last Vital Signs Temp Pulse Resp BP Pulse Ox 98.4 F 62 19 148/60 98 02/20/20 13:29 02/20/20 13:29 02/20/20 13:29 02/20/20 13:02/20/20 13:29 - Physical Exam General Appearance: Yes: Nourished, Appropriately Dressed, Moderate Distress, Obese, Other (resting in bed, appears uncomfortable) HEENT: positive: EOMI, NORMA, Normal Voice, Symmetrical, Pharynx Normal, Hearing Grossly Normal. negative: Scleral Icterus (R), Scleral Icterus (L), Pharyngeal Erythema, Tonsillar Exudate, Tonsillar Erythema Neck: positive: Trachea midline, Normal Thyroid, Supple. negative: Tender, Rigid, Lymphadenopathy (R), Lymphadenopathy (L), Tender lateral, Tender midline Respiratory/Chest: positive: Lungs Clear, Normal Breath Sounds. negative: Chest Tender, Respiratory Distress, Accessory Muscle Use, Crackles, Rales, Rhonchi, Stridor Cardiovascular: positive: Regular Rhythm, Regular Rate. negative: Murmur Gastrointestinal/Abdominal: positive: Tender (LLQ), Soft, Decreased BS, Distended, Guarding, Hernia (periumbilical, ventralx2), Other (RLQ urostomy with clear yellow urine in bag, non-tender). negative: Flat, Organomegaly, Pulsatile Mass, Protuberent, Rebound Musculoskeletal: positive: Normal Inspection. negative: CVA Tenderness, CVA Tenderness (R), CVA Tenderness (L) Extremity: positive: Normal Capillary Refill, Normal Inspection, Normal Range of Motion, Pelvis Stable. negative: Tender, Swelling, Calf Tenderness Integumentary: positive: Normal Color, Dry, Warm Neurologic: positive: Fully Oriented, Alert, Normal Mood/Affect, Normal Response. negative: Motor Strength 5/5 ED Treatment Course - LABORATORY CBC & Chemistry Diagram: 02/20/20 14:00 02/20/20 14:00 Medical Decision Making - Medical Decision Making 02/20/20 23:31 Patient has history of bladder resection and multiple SBO and UTI, here for abd pain concerning for repeat SBO, diverticulitis, renal disease, colitis. Sepsis labs ordered with lipase, ECG, CXR. Given morphine for pain control. Covid-19 ordered. Labs notable for: - K 5.3 - Cr 1.9 - UA +nitrate, 1+ LE, >38157 bacteria Consistent with UTI, given past sensitivities started on meropenem and vancomycin. CTAP shows multiple SBO and loops of bowel. Consulted Dr. Grey with surgery, uncomfortable seeing patient without urology available given bladder resection and danger of interrupting existing urostomy. Dr. Lamberto Gomez consulted, SBO is not a urological surgery indication, recommends gen surg consult. Dr. Grey unwilling to admit without urology. Patient to be transferred to [facility] for further SBO care. NPO, NGT placed. Patient and daughter consent to transfer. CT sent to [facility] and notes faxed at 23:15. Discharge - Discharge Information Problems reviewed: Yes Clinical Impression/Diagnosis: SBO (small bowel obstruction) UTI (urinary tract infection) Qualifiers: Urinary tract infection type: acute cystitis Hematuria presence: without hematuria Qualified Code(s): N30.00 - Acute cystitis without hematuria Condition: Stable Disposition: TRANSFER ACUTE CARE/OTHER HOSP - Admission No - Follow up/Referral - Patient Discharge Instructions - Post Discharge Activity
[2020-02-20] MEDS ORDERED: morphine CARPU-JECT 4 MG/1 ML DISP.SYRIN IVPUSH ONE ×2 (14:16→18:06)
[2020-02-20 14:24] LABS: BASO % 0.5 % (0-2.0); EOS % 0.9 % (0-4.5); HEMATOCRIT 35.3 % (32.4-45.2); LYMPH % 12.9 % (8-40); MCH 28.2 pg (25.7-33.7); MCHC 31.1 g/dl (32.0-36.0); MEAN CELL VOLUME 90.7 fl (80-96); MEAN PLT VOLUME 10.4 fl (7.5-11.1); MONO % 5.4 % (3.8-10.2); NEUT % 80.3 % (42.8-82.8); PLATELET COUNT 133 K/MM3 (134-434); RBC 3.89 M/mm3 (3.60-5.2); RDW 14.7 % (11.6-15.6); WHITE BLOOD COUNT 6.2 K/mm3 (4.0-10.0)
[2020-02-20 14:31] LABS: INR 0.97 (0.83-1.09); PROTHROMBIN TIME (PATIENT) 11.5 SEC (9.7-13.0)
[2020-02-20 14:34] LABS: ACTIVATED PTT 35.1 SECONDS (25.2-36.5)
[2020-02-20 14:58] LABS: ALBUMIN 3.3 g/dl (3.4-5.0); BILIRUBIN,TOTAL 0.6 mg/dL (0.2-1); BLOOD UREA NITROGEN 27.1 mg/dL (7-18); CALCIUM 8.5 mg/dL (8.5-10.1); CREATININE 1.9 mg/dL (0.55-1.3); POTASSIUM 5.3 mmol/L (3.5-5.1); TOT PROT 6.9 g/dl (6.4-8.2)
[2020-02-20] MEDS ORDERED: MORPHINE SULFATE 2 MG/ML VIAL ONE (15:17)
--- NOTE | 2020-02-20 15:26 | PDOC ---
Documentation entered by Abel Judd SCRIBE, acting as scribe for Jordyn Guerrier MD. Jordyn Guerrier MD: This documentation has been prepared by the Renita benson Nirvannie, SCRIBE, under my direction and personally reviewed by me in its entirety. I confirm that the documentation accurately reflects all work, treatment, procedures, and medical decision making performed by me. Attending Attestation - Resident Resident Name: BrendamariyaAlejandro - ED Attending Attestation I have performed the following: I have examined & evaluated the patient, The case was reviewed & discussed with the resident, I agree w/resident's findings & plan, Exceptions are as noted - HPI HPI: 02/20/20 15:01 The patient is a 79 year old female with a significant past medical history of bladder cancer (s/p ileal conduit), GERD, multiple SBOs, DM, HTN, CVA, SAH, Parkinsons, CKD, and DVT (s/p IVC filter) who presents to the ED with abdominal pain, nausea, and vomiting. Allergies: Latex - Physicial Exam PE: 02/20/20 15:26 Agree with resident exam. Patient is alert and oriented x 3 and in mild distress. Abdomen is obese, mildly distended with diffuse tenderness worse in the LUQ without guarding or rebound. - Medical Decision Making 02/20/20 15:31 Pt presents to the ED complaining of LUQ abdominal pain. History of diverting urostomy and multiple SBOs. Differential includes occluded urostomy, pyleonephritis, SBO, other intraabdominal pathology. Will check labs and CT, give pain control and reassess. Discharge - Discharge Information Problems reviewed: Yes Clinical Impression/Diagnosis: SBO (small bowel obstruction) UTI (urinary tract infection) Qualifiers: Urinary tract infection type: acute cystitis Hematuria presence: without hematuria Qualified Code(s): N30.00 - Acute cystitis without hematuria Condition: Stable Disposition: TRANSFER ACUTE CARE/OTHER HOSP - Follow up/Referral - Patient Discharge Instructions - Post Discharge Activity
[2020-02-20 15:45] LABS: EPI CELLS >36 /uL (0-25.1); HYALINE CASTS 36 /uL (0-3.1); URINE APPEARANCE CLEAR; URINE BILIRUBIN NEGATIVE (NEGATIVE); URINE COLOR YELLOW; URINE GLUCOSE (UA) NEGATIVE (NEGATIVE); URINE KETONE NEGATIVE (NEGATIVE); URINE LEUK ESTERASE 1+ (NEGATIVE); URINE NITRITE POSITIVE (NEGATIVE); URINE PROTEIN NEGATIVE (NEGATIVE); URINE RBC 38 /uL (0-23.9); URINE UROBILINOGEN 0.2 mg/dL (0.2-1.0); URINE WBC 24 /uL (0-25.8)
[2020-02-20 15:55] LABS: URINE CRYSTALS NON SEEN /hpf
[2020-02-20] MEDS ORDERED: morphine SULFATE 4 MG/ML VIAL ONE (17:38)
[2020-02-20] MEDS ORDERED: LIDOCAINE VISCOUS 2% ORAL/TOP 20 ML UNIT-DOSE CUP MM ONE (18:30)
[2020-02-20] MEDS ORDERED: LIDOCAINE VISCOUS 2% ORAL/TOP 20 ML UNIT-DOSE CUP ONE ×2 (18:40→20:35)
[2020-02-20] MEDS ORDERED: VANCOMYCIN 1 GM in D5W (PRE-DOCKED) 1,000 MG/250 ML IVPB ONE (18:58)
[2020-02-20] MEDS ORDERED: MEROPENEM 1 GM in DEXTROSE 5%-WATER 100 ML IVPB ONE (18:58)
[2020-02-20] MEDS ORDERED: VANCOMYCIN 1 GRAM (PRE-DOCKED) 1,000 MG/250 ML BAG IVPB ONE (19:35)
[2020-02-20 19:53] VITALS: BP 125/57
[2020-02-20 23:44] VITALS: PULSE 71; TEMP 99.1
--- NOTE | 2020-02-21 10:47 | EKG ---
Test Reason : Blood Pressure : / mmHG Vent. Rate : 079 BPM Atrial Rate : 079 BPM P-R Int : 150 ms QRS Dur : 126 ms QT Int : 412 ms P-R-T Axes : 051 -26 042 degrees QTc Int : 472 ms NORMAL SINUS RHYTHM RIGHT BUNDLE BRANCH BLOCK ABNORMAL ECG WHEN COMPARED WITH ECG OF 15-MAR-2019 10:23, NO SIGNIFICANT CHANGE WAS FOUND Confirmed by AIDE HOPKINS MD ([id number]) on 02/21/2020 10:46:50 AM Referred By: Confirmed By:AIDE HOPKINS MD
== END 2020-02-20 22:50 | disposition short-term general hospital (02) ==
LOC: JER 13:08
PROC: 3E033GC Introduction of Other Therapeutic Substance into Peripheral Vein, Percutaneous Approach (ICD-10-PCS; principal; 2020-02-20)
DX: K56.609 Unspecified intestinal obstruction, unspecified as to partial versus complete obstruction (principal); N30.00 Acute cystitis without hematuria
CPT/HCPCS: 36415; 74176-TC; 80053; 81003; 83690; 85025; 85610; 85730; 87086; 87186; 93005; 93010; 99285-25; U0003

== ENCOUNTER 2020-05-17 15:27 | Emergency (ER) | payer OTHER ==
[2020-05-17 15:42] VITALS: BP 134/63; PULSE 73; TEMP 97; BMI 44.2
--- OUTSIDE RECORDS SUMMARY | 2020-05-17 15:45 | XMS ---
:1940 Author Organization [facility] Care Team Providers Name Role Phone EMERGENCY SERVICE, X Unavailable Unavailable ROM ADAMES Unavailable Unavailable Re-disclosure Warning The records that you are about to access may contain information from federally- assisted alcohol or drug abuse programs. If such information is present, then the following federally mandated warning applies: This information has been disclosed to you from records protected by federal confidentiality rules (42 CFR part 2). The federal rules prohibit you from making any further disclosure of this information unless further disclosure is expressly permitted by the written consent of the person to whom it pertains or as otherwise permitted by 42 CFR part 2. A general authorization for the release of medical or other information is NOT sufficient for this purpose. The Federal rules restrict any use of the information to criminally investigate or prosecute any alcohol or drug abuse patient.The records that you are about to access may contain highly sensitive health information, the redisclosure of which is protected by Article 27-F of the [facility] Public Health law. If you continue you may haveaccess to information: Regarding HIV / AIDS; Provided by facilities licensed or operated by the [facility] Office of Mental Health; or Provided by the [facility] Office for People With Developmental Disabilities. If such information is present, then the following [facility] mandated warning applies: This information has been disclosed to you from confidential records which are protected by state law. State law prohibits you from making any further disclosure of this information without the specific written consent of the person to whom it pertains, or as otherwise permitted by law. Any unauthorized further disclosure in violation of state law may result in a fine or halfway sentence or both. A general authorization for the release of medical or other information is NOT sufficient authorization for further disclosure. Allergies and Adverse Reactions Type Description Substance Reaction Status Data Source(s ) Drug allergy No Known Drug No Known Drug [facility] Allergies Allergies [facility] Encounters Encounter Providers Location Date Indications Data Source(s ) Inpatient Attender: 02/21/2020 [place] Rocky campa [facility], 02:34:00 AM OBSTRUCTION Health Care ROM EDT - [facility] MAdmitter: 02/24/2020 [facility], 03:45:00 PM ROM Sandoval EDNery SMALL BOWEL OBSTRUCTION Patient admitted. Emergency Attender: 02/20/2020 09:39:00 [facility] MAttender: EMERGENCY Joel oration SERVICE, XAdmitter: ROM ADAMES ABDOMINAL PAIN Medications Medication Brand Start Product Dose Route Administrative Pharmacy [facility] Indications Reaction Description Data Name Date Form Instructions Instructions Source(s) Tylenol Tyleno 999 UNK active Tylenol [facility] Infusion l 2020 mg Infusion r Count y (AD Infusi 11:21: (ADULT) or Healt h on (AD 38 PM GT 50 kg Care EDT 1000 mg IVPB Corpora bryant n Medication administered onsite Docusate Sodium 100 MG DOK (Docusate complete d [facility] Oral Capsule DOK Sodium) [100 mg [facility] (Docusate Sodium) [100 Capsule]: 100 MG [facility] mg Capsule]: 100 MG Oral Oral Q12H Q12H Bactrim DS 800-160 [id number] completed [facility] (Sulfamethoxazole-Trimet [facility] hopri) [800 mg-160 mg Enlighted Tablet]: 1 Tablet Oral EVERY 12 HOURS Furosemide 40 MG Oral Lasix completed [facility] Tablet Lasix (Furosemide) [40 [facility] (Furosemide) [40 mg mg Tablet]: 40 Enlighted Tablet]: 40 Tablet Oral Tablet Oral DAILY DAILY PRN Fluid PRN Fluid Retention Retention 3 ML Insulin Lispro 25 Humalog Mix 75-25 comp leted [facility] UNT/ML / Insulin, KwikPen (Insulin [facility] Protamine Lispro, Human Lispro Protam [employer] 75 UNT/ML Pen Injector Lispro) [100 Humalog Mix 75-25 unit/mL (75-25) KwikPen (Insulin Lispro Insulin Pen]: 20 Protam & Lispro) [100 Unit Subcutaneous unit/mL (75-25) Insulin BEDTIME Pen]: 20 Unit Subcutaneous BEDTIME Calcium Carbonate-Vit [id number] completed [facility] D3-Min [600 mg [facility] calcium-400 unit [employer] Tablet]: 600 Tablet Oral 2 TIMES A DAY 3 ML Insulin Lispro 25 Humalog Mix 75-25 comp leted [facility] UNT/ML / Insulin, KwikPen (Insulin [facility] Protamine Lispro, Human Lispro [employer] 75 UNT/ML Pen Injector Lispro) [100 Humalog Mix 75-25 unit/mL (75-25) KwikPen (Insulin Lispro Insulin Pen]: 30 Protam & Lispro) [100 Unit Subcutaneous unit/mL (75-25) Insulin DAILY IN MORNING Pen]: 30 Unit Subcutaneous DAILY IN MORNING Fluticasone [50 mcg]: 1 [id number] completed [facility] Unit Inhalation C [facility] DIRECTED Care Corpor ation Pramipexole Pramipexole [0.5 [facility] dihydrochloride 0.5 MG mg Tablet]: 0.5 [facility] Oral Tablet Pramipexole MG Oral 2 TIMES A [facility] [0.5 mg Tablet]: 0.5 MG DAY Oral 2 TIMES A DAY sennosides, CUSTODIAL 8.6 MG Senna Lax [facility] Oral Tablet Senna Lax (Sennosides) [8.6 [facility] (Sennosides) [8.6 mg mg Tablet]: 1 Care Qui.lt Tablet]: 1 Tablet Oral Tablet Oral Q12H Q12H Aspirin 81 MG Delayed Aspirin Low Dose comple reymundo [facility] Release Oral Tablet (Aspirin) [81 [facility] Aspirin Low Dose mg]: 81 Tablet [facility] [employer] (Aspirin) [81 mg]: 81 Oral DAILY IN Tablet Oral DAILY IN MORNING MORNING Omeprazole 40 MG Delayed Omeprazole [40 compl eted [facility] Release Oral Capsule mg]: 40 MG Oral 2 [facility] Omeprazole [40 mg]: 40 TIMES A DAY [facility] MG Oral 2 TIMES A DAY Hydrochlorothiazide 12.5 Lisinopril-Hydroc co mpleted [facility] MG / Lisinopril 10 MG hlorothiazide [10 [facility] Oral Tablet mg-12.5 mg [employer] Lisinopril-Hydrochloroth Tablet]: 1 Tablet iazide [10 mg-12.5 mg Oral DAILY Tablet]: 1 Tablet Oral DAILY Brimonidine tartrate 2 Combigan completed [facility] MG/ML / Timolol 5 MG/ML (Brimonidine-Shola [facility] Ophthalmic Solution lol) [0.2 %-0.5 % Care Qui.lt Combigan Drops]: 1 Drops (Brimonidine-Timolol) Ophthalmic 3 [0.2 %-0.5 % Drops]: 1 TIMES A DAY Drops Ophthalmic 3 TIMES A DAY Insurance Providers Payer name Policy type Policy ID Covered Covered democrat's Policy P brando / Coverage democrat ID relationship to Garcia [facility] ormation type garcia MEDICAID [id number] SP [id number] MEDICARE [id number] SP [id number] UNK UNK UNK UNK UNK UNK MEDICAID [id number] SP [id number] MEDICARE [id number] M Problems, Conditions, and Diagnoses Code Display Name Description Problem Type Effective Data Sour ce(s) Dates M19.90 Unspecified UNSPECIFIED Diagnosis 02/24/2020 [facility] osteoarthritis, OSTEOARTHRITIS, 03:45:00 PM [employer] unspecified site UNSPECIFIED SITE EDT [employer] 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 Z20.828 Contact with and CONTACT W AND Diagnosis 02/24/2020 [facility] sy (suspected) EXPOSURE TO OTH 03:45:00 PM [facility] exposure to other VIRAL EDT Care viral communicable COMMUNICABLE Joel oration diseases DISEASES E11.9 Type 2 diabetes TYPE 2 DIABETES Diagnosis 02/24/2020 [place] mellitus without MELLITUS WITHOUT 03:45:00 PM C ouy Health complications COMPLICATIONS EDT Care Qui.lt K56.699 Other intestinal OTHER INTESTNL Diagnosis 02/21/2020 [place] obstruction OBST UNSP TO 02:34:00 AM [facility] unspecified as to PARTIAL VERSUS EDT Car e partial versus COMPLETE OBST Corpora tion complete obstruction Results ID Date Data Source [id number] 02/23/2020 06:06:00 AM EDT [facility] [id number] Corporation Name Value Range Interpretation Description Data Sup porting Code Source(s) Document(s ) Leukocytes 4.3 k/mm3 4.8-10 <td> [facility] [#/volume] in .8 02/23/2020 [facility] Blood by k/mm3 06:06</td><td> Health Care Automated count WBC Qui.lt </td><td><para graph styleCode="Nelda d"> 4.3 L </paragraph><b r/> (4.8-10.8) k/mm3 </td> Erythrocytes 3.37 m/mm3 3.90-5 <td> [facility] [#/volume] in .20 02/23/2020 [facility] Blood m/mm3 06:06</td><td> Health Care RBC Qui.lt </td><td><para graph styleCode="Nelda d"> 3.37 L </paragraph><b r/> (3.90-5.20) m/mm3 </td> Hemoglobin 9.5 g/dL 12.0-1 <td> [facility] [Mass/volume] in 6.0 02/23/2020 [facility] Blood g/dL 06:06</td><td> Health Care HGB Qui.lt </td><td><para graph styleCode="Nelda d"> 9.5 L </paragraph><b r/> (12.0-16.0) g/dL </td> Hematocrit 31.5 % 37.0-4 <td> [facility] [Volume 7.0 % 02/23/2020 [facility] Fraction] of 06:06</td><td> Health Care Blood by HCT Qui.lt Automated count </td><td><para graph styleCode="Nelda d"> 31.5 L </paragraph><b r/> (37.0-47.0) % </td> Erythrocyte mean 28.2 pg 27.0-3 <td> [facility] corpuscular 1.5 pg 02/23/2020 [facility] hemoglobin 06:06</td><td> Health Care [Entitic mass] MCH </td><td> Corporatio n by Automated count 28.2
(27.0-31.5) pg </td> Erythrocyte mean 30.2 % 32.0-3 <td> [facility] corpuscular 6.0 % 02/23/2020 [facility] hemoglobin 06:06</td><td> Health Care concentration [employer] [Mass/volume] in </td><td><para Blood from Fetus graph by Automated styleCode="Nelda count d"> 30.2 L </paragraph><b r/> (32.0-36.0) % </td> Erythrocyte mean 93.5 fL 81.0-9 <td> [facility] corpuscular 9.0 fL 02/23/2020 [facility] volume [Entitic 06:06</td><td> Health Ca re volume] by MCV </td><td> Corporation Automated count 93.5
(81.0-99.0) fL </td> Erythrocyte 13.7 % 11.5-1 <td> [facility] distribution 4.5 % 02/23/2020 [facility] width [Entitic 06:06</td><td> Health Car e volume] by RDW </td><td> Corporation Automated count 13.7
(11.5-14.5) % </td> Platelet mean 11.8 fL 9.8-12 <td> [facility] volume [Entitic .8 fL 02/23/2020 [facility] volume] in Blood 06:06</td><td> Health C are by Automated MPV </td><td> Corporation count 11.8
(9.8-12.8) fL </td> Platelets 111 k/mm3 160-41 <td> [facility] [#/volume] in 0 02/23/2020 [facility] Blood by k/mm3 06:06</td><td> Health Care Automated count Platelet Count Corporati on </td><td><par agraph styleCode="Nelda d"> 111 L </paragraph><b r/> (160-410) k/mm3 </td> Monocytes/Leukoc 9.5 % 0.0-11 <td> [facility] ytes [Pure .0 % 02/23/2020 [facility] number fraction] 06:06</td><td> Health C are in Blood by Monocytes. Corporation Automated count </td><td> 9.5
(0.0-11.0) % </td> Lymphocytes 17.2 % 17.0-5 <td> [facility] [#/volume] in 0.0 % 02/23/2020 [facility] Blood by 06:06</td><td> Health Care Automated count Lymphocytes Corporation </td><td> 17.2
(17.0-50.0) % </td> Basophils+Eosino 1.6 % 0.0-5. <td> [facility] phils+Monocytes 0 % 02/23/2020 [facility] [#/volume] in 06:06</td><td> Health Care Blood by Eosinophils Qui.lt Automated count </td><td> 1.6
(0.0-5.0) % </td> Basophils 0.2 % 0.0-2. <td> [facility] [#/volume] in 0 % 02/23/2020 [facility] Blood by 06:06</td><td> Health Care Automated count Basophils Corporation </td><td> 0.2
(0.0-2.0) % </td> Immature 0.2 % 0.0-0. <td> [facility] granulocytes/100 5 % 02/23/2020 [facility] leukocytes in 06:06</td><td> Health Care Blood by IG% </td><td> Corporation Automated count 0.2
(0.0-0.5) %
The IG fraction represents metamyelocytes , myelocytes and/or
promyelocytes and is only reported as part of the automated
differential when found at a percentage of less than 6.
If higher than 6%, a manual differential will be performed.

(0.0-0.5) % </td> Glucose 220 mg/dL 70-105 <td> [facility] [Mass/volume] in mg/dL 02/23/2020 [facility] Blood 06:06</td><td> Health Care Glucose-Serum Qui.lt </td><td><para graph styleCode="Nelda d"> 220 H </paragraph><b r/> (70-105) mg/dL </td> Neutrophils [#] 71.3 % 40.0-7 <td> [facility] in Body fluid by 6.0 % 02/23/2020 [facility] Manual count 06:06</td><td> Health Care Neutrophils Qui.lt </td><td> 71.3
(40.0-76.0) % </td> Sodium 140 mEq/L 135-14 <td> [facility] [Moles/volume] 5 02/23/2020 [facility] in Serum or mEq/L 06:06</td><td> Health Care Plasma Sodium-Serum Qui.lt </td><td> 140
(135-145) mEq/L </td> Chloride 110 mEq/L 98-107 <td> [facility] [Moles/volume] mEq/L 02/23/2020 [facility] in Serum or 06:06</td><td> Health Care Plasma Chloride Qui.lt </td><td><para graph styleCode="Nelda d"> 110 H </paragraph><b r/> (98-107) mEq/L </td> Potassium 3.7 mEq/L 3.5-5. <td> [facility] [Moles/volume] 1 02/23/2020 [facility] in Serum or mEq/L 06:06</td><td> Health Care Plasma Potassium-Seru Qui.lt m </td><td> 3.7
(3.5-5.1) mEq/L </td> Carbon dioxide, 24 mEq/L 22-30 <td> [facility] total mEq/L 02/23/2020 [facility] [Moles/volume] 06:06</td><td> Health Car e in Serum or CO2 </td><td> Qui.lt Plasma 24
(22-30) mEq/L </td> Urea nitrogen 10 mg/dL 6-22 <td> [facility] [Mass/volume] in mg/dL 02/23/2020 [facility] Blood 06:06</td><td> Health Care BUN </td><td> Corporation 10
(6-22) mg/dL </td> Alanine 7 U/L 6-55 <td> [facility] aminotransferase U/L 02/23/2020 [facility] [Enzymatic 06:06</td><td> Health Care activity/volume] ALT (SGPT) Corporation in Serum or </td><td> Plasma 7
(6-55) U/L </td> Aspartate 14 U/L 4-35 <td> [facility] aminotransferase U/L 02/23/2020 [facility] [Enzymatic 06:06</td><td> Health Care activity/volume] AST (SGOT) Qui.lt in Serum or </td><td> Plasma 14
(4-35) U/L </td> Creatinine 1.29 mg/dL 0.57-1 <td> [facility] [Moles/volume] .11 02/23/2020 [facility] in Serum or mg/dL 06:06</td><td> Health Care Plasma Creatinine. Corporation </td><td><para graph styleCode="Nelda d"> 1.29 H </paragraph><b r/> (0.57-1.11) mg/dL </td> Bilirubin.total 0.6 mg/dL 0.2-1. <td> [facility] [Mass/volume] in 3 02/23/2020 [facility] Blood mg/dL 06:06</td><td> Health Care Bilirubin - Qui.lt Total </td><td> 0.6
(0.2-1.3) mg/dL </td> Proteins - Total 6.0 g/dL 6.4-8. <td> [facility] 3 g/dL 02/23/2020 [facility] 06:06</td><td> Health Care Proteins - Qui.lt Total </td><td><para graph styleCode="Nelda d"> 6.0 L </paragraph><b r/> (6.4-8.3) g/dL </td> Albumin 3.2 g/dL 3.4-4. <td> [facility] [Mass/volume] in 8 g/dL 02/23/2020 [facility] Serum or Plasma 06:06</td><td> Health Ca re Albumin Qui.lt </td><td><para graph styleCode="Nelda d"> 3.2 L </paragraph><b r/> (3.4-4.8) g/dL </td> Globulin 2.8 gm/dL 2.9-4. <td> [facility] [Mass/volume] in 0 02/23/2020 [facility] Serum gm/dL 06:06</td><td> Health Care Globulin Qui.lt </td><td><para graph styleCode="Nelda d"> 2.8 L </paragraph><b r/> (2.9-4.0) gm/dL </td> Calcium 8.1 mg/dL 8.6-10 <td> [facility] [Mass/volume] in .2 02/23/2020 [facility] Blood mg/dL 06:06</td><td> Health Care Calcium Qui.lt </td><td><para graph styleCode="Nelda d"> 8.1 L </paragraph><b r/> (8.6-10.2) mg/dL </td> Anion gap in 6 mEq/L 7-13 <td> [facility] Serum or Plasma mEq/L 02/23/2020 [facility] 06:06</td><td> Health Care Anion Gap Qui.lt </td><td><para graph styleCode="Nelda d"> 6 L </paragraph><b r/> (7-13) mEq/L </td> Lipemic index of No Lipemia <td> [facility] Serum or Plasma 02/23/2020 [facility] 06:06</td><td> Health Care Lipemia Index Corporation </td><td> No Lipemia
</td> Hemolysis index No <td> [facility] of Serum or Hemolysis 02/23/2020 [facility] Plasma 06:06</td><td> Health Care Hemolysis Corporation Index </td><td> No Hemolysis
</td> Icteric index of Non <td> [facility] Serum or Plasma Icteric 02/23/2020 [facility] 06:06</td><td> Health Care Icteric Index Corporation </td><td> Non Icteric
</td> Appearance of Cloudy <td> [facility] Urine 02/21/2020 [facility] 02:04</td><td> Health Care Appearance Corporation </td><td><para graph styleCode="Nelda d"> Cloudy * AB </paragraph><b r/> (CLEAR) </td> Phosphate 3.5 mg/dL 2.3-4. <td> [facility] [Mass/volume] in 7 02/23/2020 [facility] Serum or Plasma mg/dL 06:06</td><td> Health Ca re Inorganic Qui.lt Phosphorus </td><td> 3.5
(2.3-4.7) mg/dL </td> Specific gravity 1.014 {} 1.000- <td> [facility] of Urine by Test 1.035 02/21/2020 [facility] strip 02:04</td><td> Health Care Specific Corporation Arvin </td><td> 1.014
(1.000-1.035) </td> Glucose Negative <td> [facility] [Presence] in 02/21/2020 [facility] Urine by Test 02:04</td><td> Health Care strip Glucose_ Corporation </td><td> Negative
(NEGATIVE) </td> Protein 1+ (30 <td> [facility] [Presence] in MG/DL) 02/21/2020 [facility] Urine by 02:04</td><td> Health Care Automated test Protein Corporation strip Qualitative </td><td><para graph styleCode="Nelda d"> 1+ (30 MG/DL) * AB </paragraph><b r/> (NEGATIVE) </td> Leukocyte 2+ <td> [facility] esterase 02/21/2020 [facility] [Presence] in 02:04</td><td> Health Care Urine by Test Leukocytes Corporation strip Esterase </td><td><para graph styleCode="Nelda d"> 2+ * AB </paragraph><b r/> (NEGATIVE) </td> Nitrite Negative <td> [facility] [Presence] in 02/21/2020 [facility] Urine by Test 02:04</td><td> Health Care strip Nitrites Corporation </td><td> Negative
(NEGATIVE) </td> Urobilinogen 0.2 mg/dL 0.0-2. <td> [facility] [Presence] in 0 02/21/2020 [facility] Urine by mg/dL 02:04</td><td> Health Care Automated test Urobilinogen Corporation strip </td><td> 0.2
(0.0-2.0) mg/dL </td> Leukocytes 24 /HPF 0-5 <td> [facility] [Presence] in /HPF 02/21/2020 [facility] Urine by 02:04</td><td> Health Care Automated WBC Corporation </td><td><para graph styleCode="Nelda d"> 24 * AB </paragraph><b r/> (0-5) /HPF </td> Mucous RARE <td> [facility] <= FEW 02/21/2020 [facility] 02:04</td><td> Health Care Mucous Corporation </td><td> RARE
/LPF
<= FEW

/LPF </td> Epithelial cells RARE <td> [facility] [#/area] in <= FEW 02/21/2020 [facility] Urine sediment 02:04</td><td> Health Car e by Automated Epithelial Corporation count Cells </td><td> RARE
/LPF
<= FEW

/LPF </td> Amorphous RARE <td> [facility] Crystal <= FEW 02/21/2020 [facility] 02:04</td><td> Health Care Amorphous Corporation Crystal </td><td> RARE
/HPF
<= FEW

/HPF </td> Erythrocytes 8 /HPF 0-2 <td> [facility] [#/area] in /HPF 02/21/2020 [facility] Urine sediment 02:04</td><td> Health Car e by Automated RBC Corporation count </td><td><para graph styleCode="Nelda d"> 8 * AB </paragraph><b r/> (0-2) /HPF </td> Bacteria MANY <td> [facility] [#/area] in 02/21/2020 [facility] Urine sediment 02:04</td><td> Health Car e by Microscopy Bacteria Corporation high power field </td><td><para graph styleCode="Nelda d"> MANY * AB </paragraph>< br/> (NONE) /HPF </td> Magnesium 1.9 mg/dL 1.6-2. <td> [facility] [Mass/volume] in 6 02/23/2020 [facility] Serum or Plasma mg/dL 06:06</td><td> Health Ca re Magnesium Corporation Level </td><td> 1.9
(1.6-2.6) mg/dL </td> Glucose 198 mg/dL 70-105 <td> [facility] [Mass/volume] in mg/dL 02/24/2020 [facility] Capillary blood 11:48</td><td> Health Ca re by Glucometer Glucose - Corporation Finger Stick </td><td><para graph styleCode="Nelda d"> 198 H </paragraph><b r/> (70-105) mg/dL </td> ID Date Data Source [id number] 02/20/2020 04:12:00 PM EDT [facility] Name Value Range Interpretation Description Data Sup porting Code Source(s) Document(s ) SARS [facility] CORONAVIRUS 2 RNA This lab was ordered by [facility] and reported by [facility]. ID Date Data Source [id number] 02/20/2020 12:00:00 AM EDT [facility] Name Value Range Interpretation Code Description Data Bibi rce(s) Supporting Document(s ) SARS-COV-2 [facility] RNA RT-PCR [facility] This lab was ordered by [facility] and reported by [facility]. Procedure Social History Code Duration Value Status Description Data Source(s ) Smoking Never smoker completed Never smoker [facility] Vital Signs ID Date Data Source UNK Name Value Range Interpretation Code Description Data Source(s) Diastolic blood 48 {} Normal (applies to 48 {} [place] pressure non-numeric results) [facility] Corpor[facility] on Systolic blood 109 {} Normal (applies to 109 {} [place] pressure non-numeric results) Coun ty [facility] Corporati on First Respiration 19.0000 {} Normal (applies to 19.0000 {} [facility] rate Set non-numeric results) Coun ty [facility] Care Corporati on Heart rate 100.0000 {} Normal (applies to 100.0000 {} [place] non-numeric results) Coun ty [facility] Corporati on Body temperature 96.8000 {} Normal (applies to 96.8000 {} [place] non-numeric results) Coun ty [facility] Care Corporati on wt - obtain Normal (applies to {} [place] non-numeric results) Coun ty [facility] Corporati on weight - kg 120.0000 {} Normal (applies to 120.0000 {} [place] non-numeric results) Coun ty Health Care Corporati on Patient Treatment Plan of Care Planned Activity Planned Date Details Description Data Source (s) Tylenol Infusion (AD 02/20/2020 11:21:38 [facility] EDT Health Care Cor poration
[2020-05-17] MEDS ORDERED: traMADol HCL 50 MG TABLET PO ONE (16:42)
[2020-05-17] MEDS ORDERED: ACETAMINOPHEN 325 MG TABLET (FP) PO ONE (16:43)
[2020-05-17] MEDS ORDERED: LIDOCAINE 5% TOPICAL PATCH TP ONE ×2 (16:43→20:37)
--- NOTE | 2020-05-17 16:43 | PDOC ---
History of Present Illness - General Chief Complaint: Pain Stated Complaint: ABDOMINAL PAIN Time Seen by Provider: 05/17/20 16:05 History Source: Patient Exam Limitations: No Limitations Past History - Travel History Traveled outside of the country in the last 30 days: No Close contact w/someone who was outside of country & ill: No - Medical History Allergies/Adverse Reactions: Allergies Allergy/AdvReac Type Severity Reaction Status Date / Time latex Allergy Verified 05/17/20 15:35 Home Medications: Ambulatory Orders Multivitamins [Multivit ([facility] Formulary)] 1 mg PO DAILY 05/08/17 Pregabalin [Lyrica -] 50 mg PO TID 05/08/17 Calcium Carbonate/Vitamin D3 [Calcium 600 + Vit D 400 Softgl] 600 mg PO BID 03/15/18 Furosemide [Lasix -] 40 mg PO DAILY PRN 11/17/18 Brimonidine Tartrate/Timolol [Combigan 0.2%-0.5% Eye Drops] 1 drop OU TID 02/06/19 Fluticasone Furoate [Arnuity Ellipta] 1 spray NS DAILY PRN 02/06/19 Insulin Lispro Protamin/Lispro [Humalog Mix 75-25 Kwikpen] 30 unit SQ HS 02/06/19 Lisinopril/Hydrochlorothiazide [Lisinopril-Hctz 10-12.5 mg Tab] 1 tablet PO DAILY 02/06/19 Omeprazole 40 mg PO BID 03/15/19 Pramipexole Dihydrochloride [Mirapex -] 0.5 mg PO BID 03/15/19 Ciclopirox/Clobetasol/Salicyl [Ciclopir0.77%-Clob0.05%-Salc3%] 1 appful TP BID 02/20/20 Halobetasol Propionate 1 applic TP DAILY 02/20/20 Loperamide HCl [Imodium -] 2 mg PO DAILY PRN 02/20/20 Acetaminophen [Tylenol -] 1,000 mg PO Q6H #50 tablet 05/17/20 Ascorbic Acid [Vitamin C -] 500 mg PO BID #60 tablet 05/17/20 Aspirin [ASA -] 81 mg PO DAILY 05/17/20 Calcium Carbonate/Vitamin D3 [Calcium 600 + D3 Softgel] 1 each PO BID #60 capsule 05/17/20 Ciprofloxacin [Cipro (Restricted To Id)] 500 mg PO Q12H #6 tablet 05/17/20 Lidocaine 5% Patch [Lidoderm -] 1 patch TP DAILY #7 patch 05/17/20 traMADol HCL [Ultram -] 50 mg PO BID PRN #10 tablet MDD 2 05/17/20 Anemia: No Asthma: No Cancer: Yes (BLADDER) Cardiac Disorders: No CVA: Yes (2017, SAH) COPD: No CHF: No Dementia: No Diabetes: Yes GI Disorders: Yes (GERD, SBO's) Disorders: Yes (ileal conduit) HTN: Yes Hypercholesterolemia: No Liver Disease: No Seizures: No Thyroid Disease: No - Surgical History Abdominal Surgery: Yes Appendectomy: No Cardiac Surgery: No Cholecystectomy: Yes Lung Surgery: No Neurologic Surgery: No Orthopedic Surgery: Yes (R KNEE REPLACEMENT w/ revisions) - Immunization History Td Vaccination: Yes TDAP Vaccination: Yes Immunization Up to Date: Yes - Psycho-Social/Smoking History Smoking Status: No Smoking History: Never smoked Have you smoked in the past 12 months: No Number of Cigarettes Smoked Daily: 0 Review of Systems - Review of Systems Able to Perform ROS?: Yes Comments:: 05/17/20 20:47 CONSTITUTIONAL: Absent: fever, chills, diaphoresis, generalized weakness, malaise, loss of appetite HEENT: Absent: rhinorrhea, nasal congestion, throat pain, throat swelling, difficulty swallowing, mouth swelling, ear pain, eye pain, visual Changes CARDIOVASCULAR: Absent: chest pain, loss of consciousness, palpitations, irregular heart rate, peripheral edema RESPIRATORY: Absent: cough, shortness of breath, dyspnea with exertion, orthopnea, wheezing, stridor, hemoptysis GASTROINTESTINAL: Absent: abdominal pain, abdominal distension, nausea, vomiting, diarrhea, constipation, melena, hematochezia GENITOURINARY: Absent: dysuria, frequency, urgency, hesitancy, hematuria, flank pain, genital pain MUSCULOSKELETAL: Present: upper back pain Absent: myalgia, arthralgia, joint swelling SKIN: Absent: rash, itching, pallor HEMATOLOGIC/IMMUNOLOGIC: Absent: easy bleeding, easy bruising, lymphadenopathy, frequent infections ENDOCRINE: Absent: unexplained weight gain, unexplained weight loss, heat intolerance, cold intolerance NEUROLOGIC: Absent: headache, focal weakness or paresthesias, dizziness, unsteady gait, seizure, mental status changes, bladder or bowel incontinence PSYCHIATRIC: Absent: anxiety, depression, suicidal or homicidal ideation, hallucinations. Is the patient limited Italian proficient: No *Physical Exam - Vital Signs Last Vital Signs Temp Pulse Resp BP Pulse Ox 97 F L 73 18 134/63 98 05/17/20 15:32 05/17/20 15:32 05/17/20 15:32 05/17/20 15:32 05/17/20 15:32 - Physical Exam 05/17/20 20:47 GENERAL: Well developed, well nourished. Awake and alert. No acute distress. HEENT: Normocephalic, atraumatic. PERRLA, EOMI. No conjunctival pallor. Sclera are non- icteric. Moist mucous membranes. Oropharynx is clear. NECK: Supple. Full ROM. No JVD. Carotid pulses 2+ and symmetric, without bruits. No thyromegaly. No lymphadenopathy. CARDIOVASCULAR: Regular rate and rhythm. No murmurs, rubs, or gallops. Distal pulses are 2+ and symmetric. PULMONARY: No evidence of respiratory distress. Lungs clear to auscultation bilaterally. No wheezing, rales or rhonchi. ABDOMINAL: Soft. Non-tender. Non-distended. No rebound or guarding. No organomegaly. Normoactive bowel sounds. MUSCULOSKELETAL TTP along the t5/t6 dematome. Normal range of motion at all joints. No bony deformities or tenderness. No CVA tenderness. EXTREMITIES: No cyanosis. No clubbing. No edema. No calf tenderness. SKIN: Warm and dry. Normal capillary refill. No rashes. No jaundice. NEUROLOGICAL: Alert, awake, appropriate. Cranial nerves 2-12 intact. No deficits to light touch and temperature in face, upper extremities and lower extremities. No motor deficits in the in face, upper extremities and lower extremities. Normoreflexic in the upper and lower extremities. Normal speech. Toes are down-going bilaterally. Gait is normal without ataxia. PSYCHIATRIC: Cooperative. Good eye contact. Appropriate mood and affect. Medical Decision Making - Medical Decision Making 05/17/20 19:29 The patient is an 79-year-old female multiple medical comorbidities including diabetes, peripheral neuropathy, chronic low back pain, hypertension, hyperlipidemia, urostomy bag, presents to the ER today for left-sided upper back pain. Patient reports she has remote shingles approximately 6 years ago. She states that since then she is always had some nerve pain to the area where she had shingles. She states over the past month it is been getting worse and no medication has been helping at home. She is tried Tylenol, lidocaine cream. She is concerned she is having worsening nerve pain or that there is an issue with her T-spine. She denies weakness in the upper extremities, numbness and tingling to the arms and feet, saddle anesthesia, bladder bowel incontinence and trauma. The daughter is also complaining of foul smelling urine from the urostomy bag A/P: Neuralgia On exam patient has tenderness along T 6 T7 dermatome from the left dorsal back radiating to under the breast. Will try tramadol, lidocaine patch Urine T-spine CT ordered Reevaluate 05/17/20 20:49 Pain improved after tramadol and Tylenol. Read by imaging on-call, no obvious herniated disc or spinal cord injury however poor study due to artifact. Patient is neurologically intact with no focal deficits at this time. No numbness and tingling down the extremities. Unlikely acute spinal cord injury, herniated disc with spinal cord impingement I suspect this is a regional pain syndrome as a result of her shingles Urine also with trace leuks, over 9000 WBC. Suspect colonization, however based on past cultures will treat with cipro at this time Will discharge home to follow-up with her neurologist Dr. Espana I discussed the physical exam findings, ancillary test results and final diagnoses with the patient. I answered all of the patient's questions. The patient was satisfied with the care received and felt comfortable with the discharge plan and treatment plan. The Patient agrees to follow up with the primary care physician/specialist within 24-72 hours. Return precautions were given. Discharge - Discharge Information Problems reviewed: Yes Clinical Impression/Diagnosis: Back pain Qualifiers: Back pain location: thoracic back pain Chronicity: chronic Back pain laterality: left Qualified Code(s): M54.6 - Pain in thoracic spine Condition: Stable Disposition: HOME - Admission No - Additional Discharge Information Prescriptions: Calcium Carbonate/Vitamin D3 [Calcium 600 + D3 Softgel] 1 each PO BID #60 capsule Ciprofloxacin [Cipro (Restricted To Id)] 500 mg PO Q12H #6 tablet Lidocaine 5% Patch [Lidoderm -] 1 patch TP DAILY #7 patch Acetaminophen [Tylenol -] 1,000 mg PO Q6H #50 tablet traMADol HCL [Ultram -] 50 mg PO BID PRN #10 tablet MDD 2 PRN Reason: Pain Ascorbic Acid [Vitamin C -] 500 mg PO BID #60 tablet - Follow up/Referral Referrals: Diallo Espana MD [Staff Physician] - - Patient Discharge Instructions Patient Printed Discharge Instructions: DI for Peripheral Neuropathy Additional Instructions: You were seen today for your back pain. Is most likely related nerve pain from your shingles. You also have a urinary tract infection. Please take the Cipro as directed. Your CT did not show any evidence of a herniated disc at this time. There was no rash today Please take the tramadol and Tylenol as directed. Do not drink or drive after taking the tramadol as it may make you drowsy. You may use lidocaine patch every 12 hours to the area Please follow-up with your neurologist regarding this pain within the week. Return to the ER for worsening pain, numbness and tingling to the extremities or if you have any changes in your symptoms. - Post Discharge Activity
[2020-05-17] MEDS ORDERED: ACETAMINOPHEN 325 MG TABLET (FP) ONE (16:58)
[2020-05-17] MEDS ORDERED: LIDOCAINE 5% TOPICAL PATCH ONE ×2 (16:59→20:58)
[2020-05-17] MEDS ORDERED: traMADol HCL 50 MG TABLET ONE (16:59)
[2020-05-17] MEDS ORDERED: ACETAMINOPHEN 500 MG TABLET (FP) ONE (17:04)
[2020-05-17 18:10] LABS: EPI CELLS 17 /uL (0-25.1); HYALINE CASTS 57 /uL (0-3.1); PH,URINE 7.5 (5.0-8.0); URINE APPEARANCE CLOUDY; URINE BACTERIA >9,000 /uL (0-1359); URINE BILIRUBIN NEGATIVE (NEGATIVE); URINE COLOR YELLOW; URINE GLUCOSE (UA) NEGATIVE (NEGATIVE); URINE KETONE NEGATIVE (NEGATIVE); URINE LEUK ESTERASE TRACE (NEGATIVE); URINE NITRITE NEGATIVE (NEGATIVE); URINE PROTEIN 1+ (NEGATIVE); URINE UROBILINOGEN 0.2 mg/dL (0.2-1.0); URINE WBC 431 /uL (0-25.8)
[2020-05-17 18:32] LABS: URINE CRYSTALS NEGATIVE /hpf; URINE RBC 82.9 /uL (0-23.9)
== END 2020-05-17 21:06 | disposition home or self-care (01) ==
LOC: JER 15:27
DX: M54.6 Pain in thoracic spine (principal)
CPT/HCPCS: 72128-TC; 81003; 87086; 99284-25

== ENCOUNTER 2020-08-24 16:01 | Emergency (ER) | payer OTHER ==
[2020-08-24] MEDS ORDERED: ACETAMINOPHEN 500 MG TABLET (FP) PO ONE (18:35)
[2020-08-24] MEDS ORDERED: ACETAMINOPHEN 325 MG TABLET (FP) ONE ×2 (18:50→20:29)
[2020-08-24 19:06] VITALS: BMI 48.6
[2020-08-24] MEDS ORDERED: ACETAMINOPHEN 325 MG TABLET (FP) PO ONE (19:17)
[2020-08-24] MEDS ORDERED: LIDOCAINE HCL 2% JELLY 10 ML CARTRIDGE ONE (22:26)
[2020-08-24] MEDS ORDERED: LIDOCAINE HCL 2% JELLY 10 ML CARTRIDGE PR ONE (22:27)
[2020-08-25] MEDS ORDERED: KETOROLAC TROMETHAMINE 30 MG/1 ML VIAL IM ONE (00:39)
[2020-08-25] MEDS ORDERED: KETOROLAC TROMETHAMINE 30 MG/1 ML VIAL ONE (00:43)
[2020-08-25 00:54] VITALS: BP 155/82; PULSE 87; TEMP 99.2
== END 2020-08-25 00:54 | disposition home or self-care (01) ==
LOC: JER 16:01
PROC: 3E0233Z Introduction of Anti-inflammatory into Muscle, Percutaneous Approach (ICD-10-PCS; principal; 2020-08-24)
DX: M79.605 Pain in left leg (principal)
CPT/HCPCS: 93970-TC; 99284-25

== ENCOUNTER 2021-04-10 09:31 | Emergency (ER) | payer OTHER ==
[2021-04-10 09:58] VITALS: TEMP 98.6; BMI 47.9
[2021-04-10] MEDS ORDERED: ONDANSETRON 4 MG/2 ML VIAL IVPUSH ONE (10:01)
[2021-04-10] MEDS ORDERED: ONDANSETRON 4 MG/2 ML VIAL ONE (10:24)
[2021-04-10 10:47] LABS: BASO % 1.1 % (0-2.0); EOS % 0.8 % (0-4.5); HEMOGLOBIN 11.6 GM/dL (10.7-15.3); LYMPH % 10.8 % (8-40); MCH 28.5 pg (25.7-33.7); MCHC 32.3 g/dl (32.0-36.0); MEAN CELL VOLUME 88.4 fl (80-96); MEAN PLT VOLUME 10.4 fl (7.5-11.1); MONO % 4.8 % (3.8-10.2); NEUT % 82.5 % (42.8-82.8); PLATELET COUNT 145 10^3/uL (134-434); RBC 4.07 M/mm3 (3.60-5.2); RDW 15.3 % (11.6-15.6); WHITE BLOOD COUNT 6.3 K/mm3 (4.0-10.0)
[2021-04-10] MEDS ORDERED: morphine CARPU-JECT 4 MG/1 ML DISP.SYRIN IVPUSH ONE (10:49)
[2021-04-10 10:55] LABS: INR 1.02 (0.83-1.09); PROTHROMBIN TIME (PATIENT) 12.5 SEC (9.7-13.0)
[2021-04-10] MEDS ORDERED: MORPHINE SULFATE 2 MG/ML VIAL ONE (11:02)
[2021-04-10 11:05] LABS: CHLORIDE 112 mmol/L (98-107); SODIUM 143 mmol/L (136-145)
[2021-04-10 11:07] LABS: BLOOD UREA NITROGEN 35.8 mg/dL (7-18); CALCIUM 8.3 mg/dL (8.5-10.1)
[2021-04-10 11:08] LABS: ALBUMIN 3.1 g/dl (3.4-5.0); ANION GAP 5 MMOL/L (8-16); CO2 27 mmol/L (21-32); GLUCOSE,RANDOM 153 mg/dL (74-106); LIPASE 52 U/L (73-393)
[2021-04-10 11:10] LABS: CREATININE 2.4 mg/dL (0.55-1.3); SGOT/AST 15 U/L (15-37); SGPT/ALT 12 U/L (13-61)
[2021-04-10 11:12] LABS: BILIRUBIN,TOTAL 0.3 mg/dL (0.2-1); TOT PROT 6.6 g/dl (6.4-8.2)
[2021-04-10 11:13] LABS: ALK PHOS 133 U/L (45-117)
[2021-04-10] MEDS ORDERED: SODIUM CHLORIDE 0.9% 500 ML INFUS.BAG IV ONE (11:17)
[2021-04-10 11:19] LABS: VENOUS BASE EXCESS -1.4 mmol/L (-2-2); VENOUS O2 SATURATION 27.8 % (70-80); VENOUS PH 7.3 (7.310-7.410)
[2021-04-10 12:48] LABS: EPI CELLS 1 /uL (0-25.1); HYALINE CASTS 2 /uL (0-3.1); PH,URINE 7.5 (5.0-8.0); URINE APPEARANCE CLEAR; URINE BACTERIA 747 /uL (0-1359); URINE BILIRUBIN NEGATIVE (NEGATIVE); URINE COLOR YELLOW; URINE GLUCOSE (UA) NEGATIVE (NEGATIVE); URINE KETONE NEGATIVE (NEGATIVE); URINE LEUK ESTERASE 2+ (NEGATIVE); URINE NITRITE NEGATIVE (NEGATIVE); URINE PROTEIN 1+ (NEGATIVE); URINE RBC 65 /uL (0-23.9); URINE UROBILINOGEN 0.2 mg/dL (0.2-1.0); URINE WBC 130 /uL (0-25.8)
[2021-04-10] MEDS ORDERED: morphine SULFATE 4 MG/ML VIAL IVPUSH ONE (14:35)
[2021-04-10] MEDS ORDERED: CEFTRIAXONE 1,000 MG in DEXTROSE 5%-WATER - 50 ML IVPB ONE (14:37)
[2021-04-10] MEDS ORDERED: morphine SULFATE 4 MG/ML VIAL ONE (14:50)
[2021-04-10] MEDS ORDERED: CEFTRIAXONE 1 GM/50 ML BAG ONE (14:50)
[2021-04-10] MEDS ORDERED: LACTATED RINGERS SOLUTION 1,000 ML IV SCH (17:00)
[2021-04-10] MEDS ORDERED: ACETAMINOPHEN 1000 MG/100 ML VIAL (NON FORMULARY) IVPB PRN (17:07)
[2021-04-10] MEDS ORDERED: PANTOPRAZOLE SODIUM 40 MG VIAL IVPUSH SCH (17:08)
[2021-04-10] MEDS ORDERED: morphine SULFATE 4 MG/ML VIAL IVPUSH PRN (17:12)
[2021-04-10] MEDS ORDERED: ACETAMINOPHEN INJECTION 100 ML IVPB ONE (17:54)
[2021-04-10] MEDS ORDERED: PANTOPRAZOLE SODIUM 40 MG VIAL ONE (18:14)
[2021-04-10] MEDS ORDERED: PIPERACILLIN/TAZOB 3.375 GM 3.375 GM in DEXTROSE 5%-WATER - 50 ML IVPB SCH (21:00)
[2021-04-10] MEDS ORDERED: BRIMONIDINE TARTRATE 0.15% OPHTHALMIC 5 ML BOTTLE OU SCH (22:00)
[2021-04-10] MEDS ORDERED: TIMOLOL 0.25% OPHTHALMIC SOL 5 ML BOTTLE OU SCH (22:00)
[2021-04-10 22:37] VITALS: BP 100/46; PULSE 61
== END 2021-04-10 22:43 | disposition short-term general hospital (02) ==
LOC: JER 09:31
PROC: 3E033GC Introduction of Other Therapeutic Substance into Peripheral Vein, Percutaneous Approach (ICD-10-PCS; principal; 2021-04-10)
DX: K56.600 Partial intestinal obstruction, unspecified as to cause (principal); N30.00 Acute cystitis without hematuria; N18.9 Chronic kidney disease, unspecified; K46.0 Unspecified abdominal hernia with obstruction, without gangrene
CPT/HCPCS: 36415; 71045-TC-FY; 74176-TC; 80053; 81003; 82010; 82550; 82803; 82962; 83605; 83690; 84484; 85025; 85610; 85730; 86850; 86900; 86901; 87040; 87086; 87186; 93005; 93010; 99285-25; C9803; J0131; U0003; U0005

== ENCOUNTER 2021-06-14 12:52 | Inpatient (IN) | payer OTHER ==
[2021-06-14] MEDS ORDERED: ACETAMINOPHEN 1000 MG/100 ML VIAL IVPB ONE (13:55)
[2021-06-14] MEDS ORDERED: ACETAMINOPHEN INJECTION 100 ML IVPB ONE (14:10)
[2021-06-14 14:55] LABS: BASO % 0.3 % (0-2.0); EOS % 1.4 % (0-4.5); HEMATOCRIT 29.9 % (32.4-45.2); HEMOGLOBIN 9.5 GM/dL (10.7-15.3); LYMPH % 31.2 % (8-40); MCHC 31.8 g/dl (32.0-36.0); MEAN CELL VOLUME 88.2 fl (80-96); MEAN PLT VOLUME 9.9 fl (7.5-11.1); MONO % 10.8 % (3.8-10.2); NEUT % 56.3 % (42.8-82.8); PLATELET COUNT 114 10^3/uL (134-434); RBC 3.39 M/mm3 (3.60-5.2); RDW 17.1 % (11.6-15.6)
[2021-06-14 15:06] LABS: INR 1.11 (0.83-1.09); PROTHROMBIN TIME (PATIENT) 12.5 SEC (9.7-13.0)
[2021-06-14 15:09] LABS: ACTIVATED PTT 30.6 SECONDS (25.2-36.5)
[2021-06-14 15:16] LABS: CHLORIDE 109 mmol/L (98-107); SODIUM 138 mmol/L (136-145)
[2021-06-14 15:18] LABS: BLOOD UREA NITROGEN 54.4 mg/dL (7-18); CALCIUM 8.5 mg/dL (8.5-10.1)
[2021-06-14 15:19] LABS: ALBUMIN 2.9 g/dl (3.4-5.0); ANION GAP 7 MMOL/L (8-16); CO2 22 mmol/L (21-32); MAGNESIUM 1.8 mg/dL (1.8-2.4)
[2021-06-14 15:21] LABS: SGPT/ALT 18 U/L (13-61)
[2021-06-14 15:22] LABS: CREATININE 4.3 mg/dL (0.55-1.3); SGOT/AST 25 U/L (15-37)
[2021-06-14 15:23] LABS: BILIRUBIN,TOTAL 0.2 mg/dL (0.2-1); TOT PROT 6.6 g/dl (6.4-8.2)
[2021-06-14 15:24] LABS: ALK PHOS 138 U/L (45-117)
[2021-06-14 15:28] LABS: GLUCOSE,RANDOM 43 mg/dL (74-106)
[2021-06-14] MEDS ORDERED: DEXTROSE 50%-WATER - 25 GM/50 ML VIAL IVPUSH PRN (15:33)
[2021-06-14] MEDS ORDERED: DEXTROSE 50%-WATER - 25 GM/50 ML VIAL IVPUSH ONE ×2 (15:33→16:10)
[2021-06-14 15:36] LABS: EPI CELLS 10 /uL (0-25.1); HYALINE CASTS 19 /uL (0-3.1); URINE APPEARANCE TURBID; URINE BACTERIA >9,000 /uL (0-1359); URINE BILIRUBIN NEGATIVE (NEGATIVE); URINE COLOR YELLOW; URINE GLUCOSE (UA) NEGATIVE (NEGATIVE); URINE KETONE TRACE (NEGATIVE); URINE LEUK ESTERASE 3+ (NEGATIVE); URINE NITRITE NEGATIVE (NEGATIVE); URINE PROTEIN 2+ (NEGATIVE); URINE RBC 47 /uL (0-23.9); URINE WBC 320 /uL (0-25.8)
[2021-06-14] MEDS ORDERED: DEXTROSE 50%-WATER 25 GM/50 ML DISP.SYRIN ONE ×2 (15:36→17:08)
[2021-06-14] MEDS ORDERED: LACTATED RINGERS SOLUTION 1000 ML INFUS.BAG IV ONE (15:36)
[2021-06-14 15:54] LABS: URINE CRYSTALS YES URIC ACID /hpf
[2021-06-14] MEDS ORDERED: INSULIN REGULAR HUMAN 100 UNITS/ML *VIAL SQ ONE (16:10)
[2021-06-14] MEDS ORDERED: CALCIUM GLUCONATE 10% - 1,000 MG/10 ML VIAL IVPUSH ONE (16:10)
[2021-06-14] MEDS ORDERED: PIPERACILLIN/TAZOB 2.25 GM 2.25 GM in DEXTROSE 5%-WATER - 50 ML IVPB ONE (16:12)
[2021-06-14] MEDS ORDERED: PIPERACILLIN/TAZOB 2.25 GM 2.25 GM/50 ML BAG IVPB ONE (17:08)
[2021-06-14] MEDS ORDERED: CALCIUM GLUCONATE 10% - 1,000 MG/10 ML VIAL ONE (17:24)
[2021-06-14] MEDS ORDERED: ACETAMINOPHEN 1000 MG/100 ML VIAL IVPB PRN (20:53)
[2021-06-14 21:10] LABS: CHLORIDE 110 mmol/L (98-107); SODIUM 139 mmol/L (136-145)
[2021-06-14 21:12] LABS: CALCIUM 8.4 mg/dL (8.5-10.1); CO2 26 mmol/L (21-32); GLUCOSE,RANDOM 77 mg/dL (74-106)
[2021-06-14 21:19] LABS: ANION GAP 3 MMOL/L (8-16)
[2021-06-14 21:54] LABS: IRON SERUM 58 ug/dL (50-175); TOTAL IRON BINDING CAPACITY 284 ug/dL (250-450)
[2021-06-14 22:54] LABS: CALCIUM 8.4 mg/dL (8.5-10.1)
[2021-06-14] MEDS ORDERED: MEROPENEM 500 MG in DEXTROSE 5%-WATER 100 ML IVPB ONE (23:26)
[2021-06-14] MEDS ORDERED: MEROPENEM 500 MG VIAL (RESTRICTED TO ID) IVPB ONE (23:42)
[2021-06-15] MEDS ORDERED: DEXTROSE 50%-WATER - 25 GM/50 ML VIAL IVPUSH ONE ×5 (02:14→08:23)
[2021-06-15] MEDS ORDERED: SODIUM ZIRCONIUM CYCLOSILICATE (LOKELMA) 5 GM PACKET PO ONE ×4 (02:18→23:13)
[2021-06-15] MEDS ORDERED: INSULIN REGULAR HUMAN 100 UNITS/ML *VIAL IVPUSH ONE ×2 (02:20→08:23)
[2021-06-15] MEDS ORDERED: DEXTROSE 50%-WATER 25 GM/50 ML DISP.SYRIN ONE ×3 (02:21→08:32)
[2021-06-15] MEDS ORDERED: SODIUM CHLORIDE 1,000 ML IV SCH (05:30)
[2021-06-15] MEDS ORDERED: HEPARIN NA (PORCINE) 5,000 UNITS/ML 1ML VIAL ONE ×3 (06:31→22:12)
[2021-06-15] MEDS ORDERED: SODIUM ZIRCONIUM CYCLOSILICATE (LOKELMA) 5 GM PACKET ONE ×3 (06:31→17:02)
[2021-06-15] MEDS: HEPARIN NA (PORCINE) 5,000 UNITS/ML 1ML VIAL SQ SCH ×3 (06:35→22:16)
[2021-06-15] MEDS ORDERED: DEXTROSE 5%-NORMAL SALINE 1,000 ML IV SCH ×3 (06:45→11:09)
[2021-06-15] MEDS ORDERED: LORazepam 0.5 MG TABLET PO PRN (06:48)
[2021-06-15] MEDS: INSULIN SLIDING SCALE (NOVOLOG) 1 VIAL SQ SCH ×3 (06:51→16:55)
[2021-06-15] MEDS ORDERED: ACETAMINOPHEN INJECTION 100 ML IVPB ONE (06:56)
[2021-06-15 07:32] LABS: HEMATOCRIT 29.5 % (32.4-45.2); HEMOGLOBIN 9.6 GM/dL (10.7-15.3); MCH 28.8 pg (25.7-33.7); MCHC 32.7 g/dl (32.0-36.0); MEAN CELL VOLUME 88.2 fl (80-96); MEAN PLT VOLUME 11.2 fl (7.5-11.1); PLATELET COUNT 113 10^3/uL (134-434); RBC 3.34 M/mm3 (3.60-5.2); RDW 16.7 % (11.6-15.6); WHITE BLOOD COUNT 3.4 K/mm3 (4.0-10.0)
[2021-06-15 07:37] LABS: CHLORIDE 111 mmol/L (98-107); SODIUM 139 mmol/L (136-145)
[2021-06-15 07:49] LABS: CALCIUM 8.5 mg/dL (8.5-10.1)
[2021-06-15 07:50] LABS: ALBUMIN 2.7 g/dl (3.4-5.0); BLOOD UREA NITROGEN 45.2 mg/dL (7-18); CO2 22 mmol/L (21-32); GLUCOSE,RANDOM 85 mg/dL (74-106); MAGNESIUM 1.7 mg/dL (1.8-2.4)
[2021-06-15 07:51] LABS: CHOLESTEROL 99 mg/dL (50-200)
[2021-06-15 07:52] LABS: LDL CHOLESTEROL (ONLY SJRH) 47 mg/dL (5-100); SGOT/AST 23 U/L (15-37); SGPT/ALT 16 U/L (13-61); TRIGLYCERIDES 85 mg/dL (0-150)
[2021-06-15 07:53] LABS: CREATININE 3.6 mg/dL (0.55-1.3); PHOSPHOROUS 4.4 mg/dL (2.5-4.9)
[2021-06-15 07:54] LABS: BILIRUBIN,TOTAL 0.3 mg/dL (0.2-1); HDL CHOLESTEROL 39 mg/dL (40-60); TOT PROT 6.2 g/dl (6.4-8.2)
[2021-06-15 07:55] LABS: ALK PHOS 126 U/L (45-117)
[2021-06-15 08:07] LABS: ANION GAP 7 MMOL/L (8-16)
[2021-06-15] MEDS ORDERED: CALCIUM GLUCONATE 10% - 1,000 MG/10 ML VIAL IVPUSH ONE (08:21)
[2021-06-15] MEDS ORDERED: ALBUTEROL SO4 0.5 % INH SOLN 2.5 MG/0.5 ML VIAL.NEB. NEB ONE (08:22)
[2021-06-15] MEDS ORDERED: INSULIN (NOVOLOG) ASPART 100 UNITS/ML 10ML VIAL SQ ONE (08:22)
[2021-06-15] MEDS ORDERED: ALBUTEROL SO4 0.083% IH SOL 2.5 MG/3 ML VIAL.NEB. NEB ONE (08:32)
[2021-06-15] MEDS ORDERED: PATIENT'S OWN MEDICATION (NON-FORMULARY) (Lisinopril/Hydrochlorothiazide [Lisinopril-Hctz PO SCH (10:00)
[2021-06-15] MEDS ORDERED: HYDROCHLOROTHIAZIDE 12.5 MG CAPSULE (FP) PO SCH (10:00)
[2021-06-15] MEDS ORDERED: LISINOPRIL 10 MG TABLET PO SCH (10:00)
[2021-06-15] MEDS ORDERED: LORazepam 0.5 MG TABLET ONE (10:01)
[2021-06-15] MEDS: SODIUM ZIRCONIUM CYCLOSILICATE (LOKELMA) 5 GM PACKET PO SCH (10:59)
[2021-06-15] MEDS ORDERED: CEFTRIAXONE 1 GM/50 ML BAG ONE (12:03)
[2021-06-15] MEDS: CEFTRIAXONE 1 GM in DEXTROSE 5%-WATER - 50 ML IVPB SCH (13:00)
[2021-06-15 14:17] LABS: CHLORIDE 111 mmol/L (98-107); SODIUM 139 mmol/L (136-145)
[2021-06-15 14:18] LABS: CALCIUM 8.9 mg/dL (8.5-10.1)
[2021-06-15 14:19] LABS: BLOOD UREA NITROGEN 40.2 mg/dL (7-18); CO2 22 mmol/L (21-32); GLUCOSE,RANDOM 145 mg/dL (74-106)
[2021-06-15 14:22] LABS: CREATININE 3.1 mg/dL (0.55-1.3)
[2021-06-15 14:59] LABS: ANION GAP 6 MMOL/L (8-16)
[2021-06-15] MEDS ORDERED: CLOPIDOGREL BISULFATE 75 MG TABLET (FP) ONE (15:19)
[2021-06-15] MEDS: CLOPIDOGREL BISULFATE 75 MG TABLET (FP) PO SCH (15:28)
[2021-06-15 16:51] LABS: BLOOD UREA NITROGEN 37.9 mg/dL (7-18); CALCIUM 8.4 mg/dL (8.5-10.1)
[2021-06-15 16:55] LABS: CREATININE 3.1 mg/dL (0.55-1.3)
[2021-06-15] MEDS: SODIUM CHLORIDE 1,000 ML IV SCH (20:09)
[2021-06-15] MEDS: ROSUVASTATIN CA 10 MG TABLET (FP) PO SCH (23:35)
[2021-06-16 04:33] VITALS: BMI 47.9
[2021-06-16] MEDS: INSULIN SLIDING SCALE (NOVOLOG) 1 VIAL SQ SCH ×3 (06:02→16:54)
[2021-06-16] MEDS: HEPARIN NA (PORCINE) 5,000 UNITS/ML 1ML VIAL SQ SCH ×3 (06:26→21:57)
[2021-06-16 07:18] LABS: BASO % 0.7 % (0-2.0); EOS % 7.1 % (0-4.5); HEMOGLOBIN 9.4 GM/dL (10.7-15.3); MCH 28.7 pg (25.7-33.7); MCHC 32.6 g/dl (32.0-36.0); MEAN PLT VOLUME 10.6 fl (7.5-11.1); MONO % 10.8 % (3.8-10.2); NEUT % 59.4 % (42.8-82.8); PLATELET COUNT 115 10^3/uL (134-434); RBC 3.29 M/mm3 (3.60-5.2); RDW 16.5 % (11.6-15.6); WHITE BLOOD COUNT 2.8 K/mm3 (4.0-10.0)
[2021-06-16 07:43] LABS: BLOOD UREA NITROGEN 27.9 mg/dL (7-18); CALCIUM 8.1 mg/dL (8.5-10.1)
[2021-06-16 07:44] LABS: ALBUMIN 2.6 g/dl (3.4-5.0)
[2021-06-16 07:47] LABS: BILIRUBIN,TOTAL 0.2 mg/dL (0.2-1); CREATININE 2.4 mg/dL (0.55-1.3); PHOSPHOROUS 3.3 mg/dL (2.5-4.9); TOT PROT 5.9 g/dl (6.4-8.2)
[2021-06-16] MEDS ORDERED: DEXTROSE 5%-WATER - 50 ML IVPB ONE (08:33)
[2021-06-16] MEDS ORDERED: cefTRIAXone SODIUM 1 GM VIAL ONE (08:33)
[2021-06-16] MEDS: CEFTRIAXONE 1 GM in DEXTROSE 5%-WATER - 50 ML IVPB SCH (10:00)
[2021-06-16] MEDS: CLOPIDOGREL BISULFATE 75 MG TABLET (FP) PO SCH (10:01)
[2021-06-16] MEDS: SODIUM ZIRCONIUM CYCLOSILICATE (LOKELMA) 5 GM PACKET PO SCH (10:01)
[2021-06-16] MEDS: ROSUVASTATIN CA 10 MG TABLET (FP) PO SCH (21:57)
[2021-06-16] MEDS: SODIUM CHLORIDE 1,000 ML IV SCH (22:01)
[2021-06-17] MEDS: HEPARIN NA (PORCINE) 5,000 UNITS/ML 1ML VIAL SQ SCH ×3 (06:22→23:37)
[2021-06-17] MEDS: INSULIN SLIDING SCALE (NOVOLOG) 1 VIAL SQ SCH ×3 (06:22→16:54)
[2021-06-17] MEDS ORDERED: cefTRIAXone SODIUM 1 GM VIAL ONE (08:50)
[2021-06-17] MEDS ORDERED: DEXTROSE 5%-WATER - 50 ML IVPB ONE (08:51)
[2021-06-17 08:58] LABS: BASO % 0.7 % (0-2.0); EOS % 6.2 % (0-4.5); HEMATOCRIT 29.3 % (32.4-45.2); HEMOGLOBIN 9.6 GM/dL (10.7-15.3); LYMPH % 22.4 % (8-40); MCH 29.1 pg (25.7-33.7); MCHC 32.6 g/dl (32.0-36.0); MEAN CELL VOLUME 89.4 fl (80-96); MONO % 9.9 % (3.8-10.2); NEUT % 60.8 % (42.8-82.8); PLATELET COUNT 109 10^3/uL (134-434); RBC 3.28 M/mm3 (3.60-5.2); RDW 17.1 % (11.6-15.6); WHITE BLOOD COUNT 2.7 K/mm3 (4.0-10.0)
[2021-06-17] MEDS: CEFTRIAXONE 1 GM in DEXTROSE 5%-WATER - 50 ML IVPB SCH (09:12)
[2021-06-17] MEDS: CLOPIDOGREL BISULFATE 75 MG TABLET (FP) PO SCH (09:13)
[2021-06-17] MEDS: SODIUM ZIRCONIUM CYCLOSILICATE (LOKELMA) 5 GM PACKET PO SCH (09:13)
[2021-06-17] MEDS ORDERED: SODIUM CHLORIDE 1,000 ML IV SCH (09:31)
[2021-06-17 09:52] LABS: CALCIUM 8.3 mg/dL (8.5-10.1)
[2021-06-17 09:53] LABS: BLOOD UREA NITROGEN 21.1 mg/dL (7-18); MAGNESIUM 1.7 mg/dL (1.8-2.4)
[2021-06-17 09:57] LABS: BILIRUBIN,TOTAL 0.5 mg/dL (0.2-1); TOT PROT 6.3 g/dl (6.4-8.2)
[2021-06-17] MEDS ORDERED: SODIUM CHLORIDE 0.45% 1,000 ML IV SCH (14:00)
[2021-06-17] MEDS ORDERED: SODIUM PHOSPHATE/NA BIPHOS 133 ML ENEMA RC ONE (14:15)
[2021-06-17] MEDS: PREGABALIN 50 MG CAPSULE PO SCH (23:36)
[2021-06-17] MEDS: ROSUVASTATIN CA 10 MG TABLET (FP) PO SCH (23:37)
[2021-06-18] MEDS: INSULIN SLIDING SCALE (NOVOLOG) 1 VIAL SQ SCH ×3 (06:27→17:15)
[2021-06-18] MEDS: HEPARIN NA (PORCINE) 5,000 UNITS/ML 1ML VIAL SQ SCH ×3 (06:29→21:39)
[2021-06-18] MEDS: PREGABALIN 50 MG CAPSULE PO SCH ×3 (06:29→21:39)
[2021-06-18] MEDS: INSULIN (LEVEMIR) 100 UNITS/ML UNITS SQ SCH (06:30)
[2021-06-18 07:04] LABS: BASO % 0.4 % (0-2.0); EOS % 3.7 % (0-4.5); HEMOGLOBIN 8.9 GM/dL (10.7-15.3); LYMPH % 22.3 % (8-40); MCH 29.1 pg (25.7-33.7); MEAN CELL VOLUME 88.3 fl (80-96); MEAN PLT VOLUME 10.1 fl (7.5-11.1); MONO % 7.7 % (3.8-10.2); NEUT % 65.9 % (42.8-82.8); PLATELET COUNT 114 10^3/uL (134-434); RBC 3.06 M/mm3 (3.60-5.2); RDW 16.8 % (11.6-15.6); WHITE BLOOD COUNT 3.6 K/mm3 (4.0-10.0)
[2021-06-18 07:28] LABS: CALCIUM 8.3 mg/dL (8.5-10.1)
[2021-06-18 07:29] LABS: ALBUMIN 2.6 g/dl (3.4-5.0); BLOOD UREA NITROGEN 17.1 mg/dL (7-18); MAGNESIUM 1.3 mg/dL (1.8-2.4)
[2021-06-18 07:32] LABS: CREATININE 1.7 mg/dL (0.55-1.3); PHOSPHOROUS 3.4 mg/dL (2.5-4.9)
[2021-06-18 07:33] LABS: BILIRUBIN,TOTAL 0.5 mg/dL (0.2-1); TOT PROT 5.9 g/dl (6.4-8.2)
[2021-06-18] MEDS ORDERED: INSULIN (NOVOLOG) ASPART 100 UNITS/ML 10ML VIAL ONE (07:33)
[2021-06-18] MEDS ORDERED: MAGNESIUM 2GM/50ML STERILE WATER IVPB IVPB ONE (08:12)
[2021-06-18] MEDS ORDERED: DEXTROSE 5%-WATER - 50 ML IVPB ONE ×3 (09:10→17:51)
[2021-06-18] MEDS ORDERED: cefTRIAXone SODIUM 1 GM VIAL ONE (09:10)
[2021-06-18] MEDS: SODIUM ZIRCONIUM CYCLOSILICATE (LOKELMA) 5 GM PACKET PO SCH (09:31)
[2021-06-18] MEDS: CLOPIDOGREL BISULFATE 75 MG TABLET (FP) PO SCH (09:31)
[2021-06-18] MEDS: CEFTRIAXONE 1 GM in DEXTROSE 5%-WATER - 50 ML IVPB SCH (09:31)
[2021-06-18] MEDS ORDERED: PIPERACILLIN/TAZOBACTAM 3.375 GM VIAL IVPB ONE ×2 (11:55→17:51)
[2021-06-18] MEDS: PIPERACILLIN/TAZOB 3.375 GM 3.375 GM in DEXTROSE 5%-WATER - 50 ML IVPB SCH ×2 (12:27→17:59)
[2021-06-18] MEDS: ROSUVASTATIN CA 10 MG TABLET (FP) PO SCH (21:39)
[2021-06-19] MEDS ORDERED: PIPERACILLIN/TAZOBACTAM 3.375 GM VIAL IVPB ONE (00:27)
[2021-06-19] MEDS ORDERED: DEXTROSE 5%-WATER - 50 ML IVPB ONE ×3 (00:28→17:34)
[2021-06-19] MEDS: PIPERACILLIN/TAZOB 3.375 GM 3.375 GM in DEXTROSE 5%-WATER - 50 ML IVPB SCH (01:37)
[2021-06-19] MEDS: HEPARIN NA (PORCINE) 5,000 UNITS/ML 1ML VIAL SQ SCH ×3 (06:17→21:25)
[2021-06-19] MEDS: PREGABALIN 50 MG CAPSULE PO SCH ×3 (06:18→21:26)
[2021-06-19] MEDS: INSULIN (LEVEMIR) 100 UNITS/ML UNITS SQ SCH (06:20)
[2021-06-19] MEDS: INSULIN SLIDING SCALE (NOVOLOG) 1 VIAL SQ SCH ×3 (06:28→16:25)
[2021-06-19 07:48] LABS: BASO % 0.8 % (0-2.0); EOS % 5.7 % (0-4.5); HEMATOCRIT 28.9 % (32.4-45.2); HEMOGLOBIN 9.3 GM/dL (10.7-15.3); LYMPH % 28.2 % (8-40); MCH 28.7 pg (25.7-33.7); MCHC 32.1 g/dl (32.0-36.0); MEAN CELL VOLUME 89.3 fl (80-96); MEAN PLT VOLUME 10.3 fl (7.5-11.1); MONO % 7.8 % (3.8-10.2); NEUT % 57.5 % (42.8-82.8); PLATELET COUNT 117 10^3/uL (134-434); RBC 3.24 M/mm3 (3.60-5.2); RDW 16.6 % (11.6-15.6); WHITE BLOOD COUNT 2.7 K/mm3 (4.0-10.0)
[2021-06-19 08:14] LABS: CALCIUM 8.5 mg/dL (8.5-10.1)
[2021-06-19 08:15] LABS: ALBUMIN 2.8 g/dl (3.4-5.0); BLOOD UREA NITROGEN 17.5 mg/dL (7-18); MAGNESIUM 1.7 mg/dL (1.8-2.4)
[2021-06-19 08:18] LABS: CREATININE 1.7 mg/dL (0.55-1.3); PHOSPHOROUS 3.5 mg/dL (2.5-4.9)
[2021-06-19 08:19] LABS: BILIRUBIN,TOTAL 0.5 mg/dL (0.2-1); TOT PROT 6.4 g/dl (6.4-8.2)
[2021-06-19] MEDS ORDERED: PIPERACILLIN/TAZOBACTAM 2.25 GM VIAL IVPB ONE ×2 (08:31→17:33)
[2021-06-19] MEDS: SODIUM ZIRCONIUM CYCLOSILICATE (LOKELMA) 5 GM PACKET PO SCH (09:07)
[2021-06-19] MEDS: CLOPIDOGREL BISULFATE 75 MG TABLET (FP) PO SCH (09:07)
[2021-06-19] MEDS: ZINC SULFATE 220 MG CAPSULE (FP) PO SCH (09:07)
[2021-06-19] MEDS: PIPERACILLIN/TAZOB 2.25 GM 2.25 GM in DEXTROSE 5%-WATER - 50 ML IVPB SCH ×2 (09:07→17:41)
[2021-06-19] MEDS: VITAMIN B COMP W-C 1 EA TABLET (NEPHRO-VITE) PO SCH (09:07)
[2021-06-19] MEDS ORDERED: MAGNESIUM SULF 50% (8.12 MEQ/2 ML-1 GM VIAL) IVPB ONE (09:54)
[2021-06-19] MEDS ORDERED: MAGNESIUM 1GM/D5W 100ML - 100 ML IVPB IVPB ONE (11:00)
[2021-06-19] MEDS: PANTOPRAZOLE 40 MG TABLET PO SCH (12:03)
[2021-06-19] MEDS ORDERED: ACETAMINOPHEN 325 MG TABLET (FP) PO PRN (14:05)
[2021-06-19] MEDS ORDERED: Insulin (LOG) Aspart 100 UNITS/ML VIAL SQ ONE (15:07)
[2021-06-19] MEDS ORDERED: MAG HYDROX/AL HYDROX/SIMETH 30 ML UNIT-DOSE CUP PO PRN (17:55)
[2021-06-19] MEDS: ROSUVASTATIN CA 10 MG TABLET (FP) PO SCH (21:26)
[2021-06-20] MEDS: PIPERACILLIN/TAZOB 2.25 GM 2.25 GM in DEXTROSE 5%-WATER - 50 ML IVPB SCH ×3 (02:00→17:28)
[2021-06-20] MEDS ORDERED: DEXTROSE 5%-WATER - 50 ML IVPB ONE ×2 (03:43→08:13)
[2021-06-20] MEDS ORDERED: PIPERACILLIN/TAZOBACTAM 2.25 GM VIAL IVPB ONE ×2 (03:43→08:13)
[2021-06-20] MEDS: HEPARIN NA (PORCINE) 5,000 UNITS/ML 1ML VIAL SQ SCH ×3 (06:19→21:16)
[2021-06-20] MEDS: PREGABALIN 50 MG CAPSULE PO SCH ×3 (06:20→21:16)
[2021-06-20] MEDS: INSULIN (LEVEMIR) 100 UNITS/ML UNITS SQ SCH (06:41)
[2021-06-20] MEDS: INSULIN SLIDING SCALE (NOVOLOG) 1 VIAL SQ SCH ×3 (06:44→17:03)
[2021-06-20 08:12] LABS: HEMATOCRIT 28.5 % (32.4-45.2); HEMOGLOBIN 9.1 GM/dL (10.7-15.3); MCH 28.4 pg (25.7-33.7); MCHC 31.8 g/dl (32.0-36.0); MEAN CELL VOLUME 89.3 fl (80-96); PLATELET COUNT 111 10^3/uL (134-434); RBC 3.19 M/mm3 (3.60-5.2); RDW 17.1 % (11.6-15.6)
[2021-06-20 08:35] LABS: CALCIUM 8.4 mg/dL (8.5-10.1); MAGNESIUM 2.4 mg/dL (1.8-2.4)
[2021-06-20 08:37] LABS: CREATININE 1.7 mg/dL (0.55-1.3); PHOSPHOROUS 3.4 mg/dL (2.5-4.9)
[2021-06-20] MEDS: VITAMIN B COMP W-C 1 EA TABLET (NEPHRO-VITE) PO SCH (09:32)
[2021-06-20] MEDS: PANTOPRAZOLE 40 MG TABLET PO SCH (09:32)
[2021-06-20] MEDS: CLOPIDOGREL BISULFATE 75 MG TABLET (FP) PO SCH (09:32)
[2021-06-20] MEDS: ZINC SULFATE 220 MG CAPSULE (FP) PO SCH (09:32)
[2021-06-20] MEDS ORDERED: SODIUM ZIRCONIUM CYCLOSILICATE (LOKELMA) 5 GM PACKET PO SCH (12:00)
[2021-06-20] MEDS: ACETAMINOPHEN 325 MG TABLET (FP) PO PRN (14:26)
[2021-06-20] MEDS: ROSUVASTATIN CA 10 MG TABLET (FP) PO SCH (21:16)
[2021-06-21] MEDS: PIPERACILLIN/TAZOB 2.25 GM 2.25 GM in DEXTROSE 5%-WATER - 50 ML IVPB SCH ×2 (01:42→09:48)
[2021-06-21] MEDS: PREGABALIN 50 MG CAPSULE PO SCH ×3 (06:07→21:34)
[2021-06-21] MEDS: HEPARIN NA (PORCINE) 5,000 UNITS/ML 1ML VIAL SQ SCH ×3 (06:07→21:34)
[2021-06-21] MEDS: INSULIN (LEVEMIR) 100 UNITS/ML UNITS SQ SCH (06:10)
[2021-06-21] MEDS: INSULIN SLIDING SCALE (NOVOLOG) 1 VIAL SQ SCH ×3 (06:11→17:39)
[2021-06-21 07:58] LABS: BASO % 0.6 % (0-2.0); EOS % 4.8 % (0-4.5); HEMATOCRIT 27.8 % (32.4-45.2); MCH 28.9 pg (25.7-33.7); MCHC 32.4 g/dl (32.0-36.0); MEAN CELL VOLUME 89.3 fl (80-96); MEAN PLT VOLUME 10.1 fl (7.5-11.1); MONO % 9.1 % (3.8-10.2); NEUT % 59.5 % (42.8-82.8); PLATELET COUNT 123 10^3/uL (134-434); RBC 3.11 M/mm3 (3.60-5.2); RDW 16.9 % (11.6-15.6); WHITE BLOOD COUNT 2.9 K/mm3 (4.0-10.0)
[2021-06-21 08:32] LABS: ALBUMIN 2.5 g/dl (3.4-5.0); BLOOD UREA NITROGEN 15.7 mg/dL (7-18); CALCIUM 8.5 mg/dL (8.5-10.1)
[2021-06-21 08:35] LABS: BILIRUBIN,TOTAL 0.4 mg/dL (0.2-1); CREATININE 1.6 mg/dL (0.55-1.3)
[2021-06-21 08:36] LABS: PHOSPHOROUS 3.3 mg/dL (2.5-4.9)
[2021-06-21] MEDS ORDERED: PIPERACILLIN/TAZOBACTAM 2.25 GM VIAL IVPB ONE (09:13)
[2021-06-21] MEDS ORDERED: DEXTROSE 5%-WATER - 50 ML IVPB ONE (09:14)
[2021-06-21] MEDS: ZINC SULFATE 220 MG CAPSULE (FP) PO SCH (09:47)
[2021-06-21] MEDS: VITAMIN B COMP W-C 1 EA TABLET (NEPHRO-VITE) PO SCH (09:47)
[2021-06-21] MEDS: PANTOPRAZOLE 40 MG TABLET PO SCH (09:48)
[2021-06-21] MEDS: CLOPIDOGREL BISULFATE 75 MG TABLET (FP) PO SCH (09:48)
[2021-06-21] MEDS: AMOX TR/POT CLAV 500MG/125MG TABLETS (FP) PO SCH (17:42)
[2021-06-21] MEDS: ROSUVASTATIN CA 10 MG TABLET (FP) PO SCH (21:34)
[2021-06-22] MEDS: HEPARIN NA (PORCINE) 5,000 UNITS/ML 1ML VIAL SQ SCH (05:19)
[2021-06-22] MEDS: PREGABALIN 50 MG CAPSULE PO SCH (05:19)
[2021-06-22] MEDS: ACETAMINOPHEN 325 MG TABLET (FP) PO PRN (05:40)
[2021-06-22] MEDS: INSULIN (LEVEMIR) 100 UNITS/ML UNITS SQ SCH (06:22)
[2021-06-22] MEDS: INSULIN SLIDING SCALE (NOVOLOG) 1 VIAL SQ SCH ×2 (06:23→11:53)
[2021-06-22] MEDS: AMOX TR/POT CLAV 500MG/125MG TABLETS (FP) PO SCH (09:02)
[2021-06-22] MEDS: PANTOPRAZOLE 40 MG TABLET PO SCH (09:02)
[2021-06-22] MEDS: CLOPIDOGREL BISULFATE 75 MG TABLET (FP) PO SCH (09:02)
[2021-06-22] MEDS: ZINC SULFATE 220 MG CAPSULE (FP) PO SCH (09:02)
[2021-06-22] MEDS: VITAMIN B COMP W-C 1 EA TABLET (NEPHRO-VITE) PO SCH (09:02)
[2021-06-22 09:40] VITALS: BP 134/65; PULSE 71; TEMP 97.4
== END 2021-06-22 11:00 | disposition home health service (06) | DRG 65 ==
LOC: JER 12:52 → JERBED 19:05 → UNDOADMIN 19:05 → J4W 06-16 04:44
PROVIDERS: ADMIT Internal Medicine; ATTEND Internal Medicine
DX: I63.9 Cerebral infarction, unspecified (principal); I45.2 Bifascicular block; D61.818 Other pancytopenia; N17.9 Acute kidney failure, unspecified; N39.0 Urinary tract infection, site not specified; N18.4 Chronic kidney disease, stage 4 (severe); Z68.41 Body mass index [BMI] 40.0-44.9, adult; E66.01 Morbid (severe) obesity due to excess calories; K21.9 Gastro-esophageal reflux disease without esophagitis; E11.9 Type 2 diabetes mellitus without complications; H40.9 Unspecified glaucoma; I95.1 Orthostatic hypotension; D63.1 Anemia in chronic kidney disease; I65.29 Occlusion and stenosis of unspecified carotid artery; G83.21 Monoplegia of upper limb affecting right dominant side; E87.5 Hyperkalemia; K46.9 Unspecified abdominal hernia without obstruction or gangrene; I12.9 Hypertensive chronic kidney disease with stage 1 through stage 4 chronic kidney disease, or unspecified chronic kidney disease; E11.22 Type 2 diabetes mellitus with diabetic chronic kidney disease; W18.39XA Other fall on same level, initial encounter; Y92.098 Other place in other non-institutional residence as the place of occurrence of the external cause; Z85.51 Personal history of malignant neoplasm of bladder; Z86.718 Personal history of other venous thrombosis and embolism; Z96.651 Presence of right artificial knee joint
CPT/HCPCS: 36415; 70450-TC; 70551-TC; 71045-TC-FY; 72125-TC; 72170-TC-FY; 72192-TC; 73552-TC-LT-FY; 80048; 80053; 80061; 81003; 82550; 82728; 82962; 83036; 83540; 83550; 83605; 83735; 84100; 84443; 84484; 85025; 85027; 85610; 85730; 87040; 87086; 87186; 93005; 93010; 93306-TC; 93880-TC; 97116-GP; 97162-GP; 99285-25; C9803; J0131; J1644; U0003; U0005

== ENCOUNTER 2022-05-11 11:31 | Inpatient (IN) | payer OTHER ==
[2022-05-11 11:52] VITALS: BMI 48.0
[2022-05-11] MEDS ORDERED: ACETAMINOPHEN 1000 MG/100 ML BAG IVPB ONE (12:02)
[2022-05-11] MEDS ORDERED: METOCLOPRAMIDE HCL INJECTION 10 MG/2 ML VIAL IVPUSH ONE (12:02)
[2022-05-11] MEDS ORDERED: METOCLOPRAMIDE HCL INJECTION 10 MG/2 ML VIAL ONE (12:17)
[2022-05-11] MEDS ORDERED: ACETAMINOPHEN INJECTION 100 ML IVPB ONE (12:18)
[2022-05-11 12:58] LABS: VENOUS BASE EXCESS -2.5 mmol/L (-2-2); VENOUS O2 SATURATION 85.2 % (70-80); VENOUS PCO2 46.1 mmHg (38-52); VENOUS PH 7.327 (7.310-7.410)
[2022-05-11 13:00] LABS: BASO % 0.7 % (0-2.0); EOS % 2.3 % (0-4.5); HEMATOCRIT 34.7 % (32.4-45.2); HEMOGLOBIN 11.2 GM/dL (10.7-15.3); LYMPH % 27.6 % (8-40); MCH 28.6 pg (25.7-33.7); MCHC 32.3 g/dl (32.0-36.0); MEAN CELL VOLUME 88.4 fl (80-96); MEAN PLT VOLUME 9.6 fl (7.5-11.1); MONO % 8.2 % (3.8-10.2); NEUT % 61.2 % (42.8-82.8); PLATELET COUNT 138 10^3/uL (134-434); RBC 3.93 M/mm3 (3.60-5.2); RDW 16.5 % (11.6-15.6)
[2022-05-11 13:07] LABS: INR 1.11 (0.83-1.09); PROTHROMBIN TIME (PATIENT) 12.8 SEC (9.7-13.0)
[2022-05-11 14:44] LABS: EPI CELLS 8 /uL (0-25.1); HYALINE CASTS 18 /uL (0-3.1); URINE APPEARANCE CLOUDY; URINE BACTERIA >9,000 /uL (0-1359); URINE BILIRUBIN NEGATIVE (NEGATIVE); URINE COLOR YELLOW; URINE GLUCOSE (UA) NEGATIVE (NEGATIVE); URINE KETONE NEGATIVE (NEGATIVE); URINE LEUK ESTERASE 3+ (NEGATIVE); URINE NITRITE NEGATIVE (NEGATIVE); URINE PROTEIN 1+ (NEGATIVE); URINE RBC 61 /uL (0-23.9); URINE UROBILINOGEN 0.2 mg/dL (0.2-1.0); URINE WBC 808 /uL (0-25.8)
[2022-05-11] MEDS ORDERED: CEFTRIAXONE 1 GM in DEXTROSE 5%-WATER - 50 ML IVPB ONE (15:20)
[2022-05-11] MEDS ORDERED: CEFTRIAXONE 1 GM/50 ML BAG ONE (16:12)
[2022-05-11] MEDS ORDERED: ASPIRIN 81 MG CHEWABLE TABLETS PO ONE (17:22)
[2022-05-11] MEDS ORDERED: ENOXAPARIN NA (PORCINE) 40 MG/0.4 ML DISP.SYRIN SQ SCH (18:15)
[2022-05-11] MEDS ORDERED: METOCLOPRAMIDE HCL INJECTION 10 MG/2 ML VIAL IVPUSH PRN (18:36)
[2022-05-11] MEDS ORDERED: ACETAMINOPHEN 1000 MG/100 ML BAG IVPB PRN (18:36)
[2022-05-11] MEDS ORDERED: KETOROLAC TROMETHAMINE 30 MG/1 ML VIAL IVPUSH PRN (18:41)
[2022-05-11] MEDS ORDERED: ASPIRIN 81 MG CHEWABLE TABLETS ONE (18:55)
[2022-05-11 20:18] LABS: CALCIUM 8.3 mg/dL (8.5-10.1)
[2022-05-11 20:19] LABS: ALBUMIN 2.8 g/dl (3.4-5.0); BLOOD UREA NITROGEN 23.2 mg/dL (7-18)
[2022-05-11 20:22] LABS: CREATININE 1.4 mg/dL (0.55-1.3)
[2022-05-11 20:23] LABS: BILIRUBIN,TOTAL 0.4 mg/dL (0.2-1)
[2022-05-11] MEDS: INSULIN SLIDING SCALE (NOVOLOG) 1 VIAL SQ SCH (21:37)
[2022-05-12] MEDS: INSULIN SLIDING SCALE (NOVOLOG) 1 VIAL SQ SCH ×4 (06:32→22:11)
[2022-05-12 08:26] LABS: HEMOGLOBIN 10.4 GM/dL (10.7-15.3); MCH 27.8 pg (25.7-33.7); MCHC 31.4 g/dl (32.0-36.0); MEAN CELL VOLUME 88.5 fl (80-96); MEAN PLT VOLUME 10.7 fl (7.5-11.1); PLATELET COUNT 137 10^3/uL (134-434); RBC 3.73 M/mm3 (3.60-5.2); RDW 16.2 % (11.6-15.6); WHITE BLOOD COUNT 3.9 K/mm3 (4.0-10.0)
[2022-05-12 08:55] LABS: ALBUMIN 2.6 g/dl (3.4-5.0); BLOOD UREA NITROGEN 25.6 mg/dL (7-18); CALCIUM 8.3 mg/dL (8.5-10.1)
[2022-05-12 08:58] LABS: CREATININE 1.5 mg/dL (0.55-1.3)
[2022-05-12 09:00] LABS: BILIRUBIN,TOTAL 0.5 mg/dL (0.2-1); TOT PROT 5.9 g/dl (6.4-8.2)
[2022-05-12] MEDS: ASPIRIN 81 MG CHEWABLE TABLETS PO SCH (09:33)
[2022-05-12] MEDS: HYDROCHLOROTHIAZIDE 12.5 MG CAPSULE (FP) PO SCH (16:11)
[2022-05-12] MEDS ORDERED: IBUPROFEN 400 MG TABLET (FP) PO PRN (17:02)
[2022-05-12] MEDS: TOPIRAMATE 25 MG TABLET PO SCH ×2 (18:06→22:12)
[2022-05-12] MEDS: BRIMONIDINE TARTRATE 0.2% OPHTHALMIC 5 ML BOTTLE OU SCH (21:50)
[2022-05-12] MEDS: LATANOPROST 0.005% OPHTH SOLN 2.5ML BOTTLE OU SCH (21:58)
[2022-05-12] MEDS: DOCUSATE SODIUM 100 MG CAPSULE (FP) PO SCH (22:00)
[2022-05-12] MEDS: ROSUVASTATIN CA 10 MG TABLET PO SCH (22:00)
[2022-05-12] MEDS ORDERED: TOPIRAMATE 25 MG TABLET PO SCH (22:00)
[2022-05-12] MEDS ORDERED: PATIENT'S OWN MEDICATION (NON-FORMULARY) (Brimonidine Tartrate/Timolol [Combigan 0.2%-0.5% OU SCH (22:00)
[2022-05-12] MEDS: CALCIUM 500MG/VIT-D 200 UNITS COMBO TABLET (FP) PO SCH (22:01)
[2022-05-12] MEDS: ASCORBIC ACID 500 MG TABLET (FP) PO SCH (22:01)
[2022-05-12] MEDS: PRAMIPEXOLE DIHYDROCHLORIDE 0.5 MG TABLET PO SCH (22:01)
[2022-05-12] MEDS: PREGABALIN 50 MG CAPSULE PO SCH (22:11)
[2022-05-13] MEDS: CALCIUM 500MG/VIT-D 200 UNITS COMBO TABLET (FP) PO SCH ×5 (06:29→21:42)
[2022-05-13] MEDS: PREGABALIN 50 MG CAPSULE PO SCH ×3 (06:29→21:15)
[2022-05-13] MEDS: INSULIN SLIDING SCALE (NOVOLOG) 1 VIAL SQ SCH ×4 (06:29→21:16)
[2022-05-13] MEDS: ACETAMINOPHEN/CAFFEINE/BUTALBITAL 1 TAB PO PRN (08:23)
[2022-05-13] MEDS: HYDROCHLOROTHIAZIDE 12.5 MG CAPSULE (FP) PO SCH (09:59)
[2022-05-13] MEDS: CLOPIDOGREL BISULFATE 75 MG TABLET (FP) PO SCH (09:59)
[2022-05-13] MEDS: DOCUSATE SODIUM 100 MG CAPSULE (FP) PO SCH ×3 (09:59→21:38)
[2022-05-13] MEDS: PANTOPRAZOLE 40 MG TABLET PO SCH (09:59)
[2022-05-13] MEDS: PRAMIPEXOLE DIHYDROCHLORIDE 0.5 MG TABLET PO SCH ×3 (09:59→21:15)
[2022-05-13] MEDS: ASCORBIC ACID 500 MG TABLET (FP) PO SCH ×2 (09:59→21:15)
[2022-05-13] MEDS: ASPIRIN 81 MG CHEWABLE TABLETS PO SCH (09:59)
[2022-05-13] MEDS: TOPIRAMATE 25 MG TABLET PO SCH ×2 (11:16→21:16)
[2022-05-13] MEDS: TIMOLOL 0.5% OPHTHALMIC SOL 5 ML BOTTLE OU SCH (11:25)
[2022-05-13] MEDS: BRIMONIDINE TARTRATE 0.2% OPHTHALMIC 5 ML BOTTLE OU SCH ×2 (11:32→21:17)
[2022-05-13 14:34] LABS: HEMATOCRIT 37.1 % (32.4-45.2); HEMOGLOBIN 11.8 GM/dL (10.7-15.3); MCH 27.9 pg (25.7-33.7); MCHC 31.7 g/dl (32.0-36.0); MEAN CELL VOLUME 88.1 fl (80-96); MEAN PLT VOLUME 10.1 fl (7.5-11.1); PLATELET COUNT 142 10^3/uL (134-434); RBC 4.21 M/mm3 (3.60-5.2); RDW 16.3 % (11.6-15.6); WHITE BLOOD COUNT 5.7 K/mm3 (4.0-10.0)
[2022-05-13 15:02] LABS: CALCIUM 8.6 mg/dL (8.5-10.1)
[2022-05-13 15:03] LABS: MAGNESIUM 1.9 mg/dL (1.8-2.4)
[2022-05-13 15:04] LABS: BLOOD UREA NITROGEN 23.2 mg/dL (7-18)
[2022-05-13 15:05] LABS: PHOSPHOROUS 3.3 mg/dL (2.5-4.9)
[2022-05-13 15:06] LABS: CREATININE 1.6 mg/dL (0.55-1.3)
[2022-05-13 15:07] LABS: BILIRUBIN,TOTAL 0.6 mg/dL (0.2-1); TOT PROT 7.4 g/dl (6.4-8.2)
[2022-05-13] MEDS ORDERED: FUROSEMIDE 40 MG TABLET (FP) PO PRN (15:10)
[2022-05-13 15:12] LABS: ERYTHROCYTE SEDIMENTATION RATE 69 mm/hr (0-30)
[2022-05-13 15:38] LABS: ALBUMIN 3.3 g/dl (3.4-5.0)
[2022-05-13] MEDS: predniSONE 20 MG TABLET (UD) PO SCH (17:17)
[2022-05-13] MEDS: ROSUVASTATIN CA 10 MG TABLET PO SCH (21:14)
[2022-05-13] MEDS: MELATONIN 5 MG TABLETS PO SCH (21:16)
[2022-05-13] MEDS: LATANOPROST 0.005% OPHTH SOLN 2.5ML BOTTLE OU SCH (21:18)
[2022-05-14] MEDS: PREGABALIN 50 MG CAPSULE PO SCH ×4 (06:24→22:33)
[2022-05-14] MEDS: CALCIUM 500MG/VIT-D 200 UNITS COMBO TABLET (FP) PO SCH ×3 (06:24→22:34)
[2022-05-14] MEDS: INSULIN SLIDING SCALE (NOVOLOG) 1 VIAL SQ SCH ×4 (06:30→22:55)
[2022-05-14 08:17] LABS: HEMATOCRIT 34.1 % (32.4-45.2); HEMOGLOBIN 10.9 GM/dL (10.7-15.3); MCH 27.8 pg (25.7-33.7); MCHC 31.9 g/dl (32.0-36.0); MEAN CELL VOLUME 87.2 fl (80-96); MEAN PLT VOLUME 10.2 fl (7.5-11.1); PLATELET COUNT 132 10^3/uL (134-434); RBC 3.92 M/mm3 (3.60-5.2); RDW 15.9 % (11.6-15.6)
[2022-05-14 08:39] LABS: ALBUMIN 2.9 g/dl (3.4-5.0); CALCIUM 8.7 mg/dL (8.5-10.1)
[2022-05-14 08:40] LABS: MAGNESIUM 1.9 mg/dL (1.8-2.4)
[2022-05-14 08:43] LABS: PHOSPHOROUS 4.1 mg/dL (2.5-4.9)
[2022-05-14 08:44] LABS: TOT PROT 6.4 g/dl (6.4-8.2)
[2022-05-14 08:46] LABS: CREATININE 1.6 mg/dL (0.55-1.3)
[2022-05-14 08:47] LABS: BILIRUBIN,TOTAL 0.5 mg/dL (0.2-1)
[2022-05-14] MEDS: PANTOPRAZOLE 40 MG TABLET PO SCH (09:21)
[2022-05-14] MEDS: predniSONE 20 MG TABLET (UD) PO SCH (09:21)
[2022-05-14] MEDS: HYDROCHLOROTHIAZIDE 12.5 MG CAPSULE (FP) PO SCH (09:21)
[2022-05-14] MEDS: CLOPIDOGREL BISULFATE 75 MG TABLET (FP) PO SCH (09:21)
[2022-05-14] MEDS: DOCUSATE SODIUM 100 MG CAPSULE (FP) PO SCH ×2 (09:21→22:31)
[2022-05-14] MEDS: MULTIVITAMINS THER W-MINERALS COMBO TABLET (FP) PO SCH (09:22)
[2022-05-14] MEDS: ASCORBIC ACID 500 MG TABLET (FP) PO SCH ×2 (09:22→22:34)
[2022-05-14] MEDS: TOPIRAMATE 25 MG TABLET PO SCH ×2 (09:23→22:38)
[2022-05-14] MEDS: ASPIRIN 81 MG CHEWABLE TABLETS PO SCH (09:23)
[2022-05-14] MEDS: PRAMIPEXOLE DIHYDROCHLORIDE 0.5 MG TABLET PO SCH ×2 (09:53→22:29)
[2022-05-14] MEDS: POLYETHYLENE GLYCOL (HEALTHYLAX) 3350 17 GM PACKET PO SCH (09:53)
[2022-05-14] MEDS: BRIMONIDINE TARTRATE 0.2% OPHTHALMIC 5 ML BOTTLE OU SCH ×2 (09:55→22:28)
[2022-05-14] MEDS: TIMOLOL 0.5% OPHTHALMIC SOL 5 ML BOTTLE OU SCH (09:55)
[2022-05-14] MEDS: ACETAMINOPHEN/CAFFEINE/BUTALBITAL 1 TAB PO PRN (13:37)
[2022-05-14] MEDS: BACLOFEN 10 MG TABLET (FP) PO SCH ×2 (14:49→22:30)
[2022-05-14] MEDS: MELATONIN 5 MG TABLETS PO SCH (22:14)
[2022-05-14] MEDS: ROSUVASTATIN CA 10 MG TABLET PO SCH (22:33)
[2022-05-14] MEDS: LATANOPROST 0.005% OPHTH SOLN 2.5ML BOTTLE OU SCH (22:34)
[2022-05-15] MEDS: CALCIUM 500MG/VIT-D 200 UNITS COMBO TABLET (FP) PO SCH ×3 (06:22→22:53)
[2022-05-15] MEDS: PREGABALIN 50 MG CAPSULE PO SCH ×3 (06:22→22:53)
[2022-05-15] MEDS: MULTIVITAMINS THER W-MINERALS COMBO TABLET (FP) PO SCH (06:22)
[2022-05-15] MEDS: BACLOFEN 10 MG TABLET (FP) PO SCH ×3 (06:22→22:54)
[2022-05-15] MEDS: INSULIN SLIDING SCALE (NOVOLOG) 1 VIAL SQ SCH ×4 (06:29→22:52)
[2022-05-15 08:24] LABS: BASO % 0.1 % (0-2.0); HEMATOCRIT 35.1 % (32.4-45.2); HEMOGLOBIN 11.3 GM/dL (10.7-15.3); MCH 28.7 pg (25.7-33.7); MCHC 32.1 g/dl (32.0-36.0); MEAN CELL VOLUME 89.2 fl (80-96); MEAN PLT VOLUME 10.1 fl (7.5-11.1); MONO % 5.3 % (3.8-10.2); NEUT % 83.6 % (42.8-82.8); PLATELET COUNT 138 10^3/uL (134-434); RBC 3.94 M/mm3 (3.60-5.2); RDW 16.3 % (11.6-15.6); WHITE BLOOD COUNT 6.3 K/mm3 (4.0-10.0)
[2022-05-15 08:29] LABS: CHLORIDE 102 mmol/L (98-107); SODIUM 139 mmol/L (136-145)
[2022-05-15 08:40] LABS: CALCIUM 9.4 mg/dL (8.5-10.1)
[2022-05-15 08:41] LABS: ALBUMIN 3.2 g/dl (3.4-5.0); ANION GAP 7 MMOL/L (8-16); BLOOD UREA NITROGEN 37.4 mg/dL (7-18); CO2 30 mmol/L (21-32)
[2022-05-15 08:44] LABS: CREATININE 1.8 mg/dL (0.55-1.3); SGOT/AST 14 U/L (15-37); SGPT/ALT 16 U/L (13-61)
[2022-05-15 08:45] LABS: BILIRUBIN,TOTAL 0.8 mg/dL (0.2-1); TOT PROT 7.1 g/dl (6.4-8.2)
[2022-05-15 08:47] LABS: ALK PHOS 161 U/L (45-117)
[2022-05-15 08:51] LABS: GLUCOSE,RANDOM 423 mg/dL (74-106)
[2022-05-15 09:25] LABS: ERYTHROCYTE SEDIMENTATION RATE 39 mm/hr (0-30)
[2022-05-15] MEDS: ASPIRIN 81 MG CHEWABLE TABLETS PO SCH (10:45)
[2022-05-15] MEDS: predniSONE 20 MG TABLET (UD) PO SCH (10:45)
[2022-05-15] MEDS: DOCUSATE SODIUM 100 MG CAPSULE (FP) PO SCH ×2 (10:45→22:53)
[2022-05-15] MEDS: BRIMONIDINE TARTRATE 0.2% OPHTHALMIC 5 ML BOTTLE OU SCH ×2 (10:45→22:51)
[2022-05-15] MEDS: HYDROCHLOROTHIAZIDE 12.5 MG CAPSULE (FP) PO SCH (10:45)
[2022-05-15] MEDS: PANTOPRAZOLE 40 MG TABLET PO SCH (10:46)
[2022-05-15] MEDS: PRAMIPEXOLE DIHYDROCHLORIDE 0.5 MG TABLET PO SCH ×2 (10:46→22:52)
[2022-05-15] MEDS: CLOPIDOGREL BISULFATE 75 MG TABLET (FP) PO SCH (10:46)
[2022-05-15] MEDS: POLYETHYLENE GLYCOL (HEALTHYLAX) 3350 17 GM PACKET PO SCH (10:46)
[2022-05-15] MEDS: TOPIRAMATE 25 MG TABLET PO SCH ×2 (10:47→22:53)
[2022-05-15] MEDS: ASCORBIC ACID 500 MG TABLET (FP) PO SCH ×2 (10:47→22:53)
[2022-05-15] MEDS: TIMOLOL 0.5% OPHTHALMIC SOL 5 ML BOTTLE OU SCH (10:47)
[2022-05-15] MEDS: INSULIN (LEVEMIR) 100 UNITS/ML UNITS SQ SCH ×2 (13:40→22:49)
[2022-05-15] MEDS: ACETAMINOPHEN/CAFFEINE/BUTALBITAL 1 TAB PO PRN (13:53)
[2022-05-15] MEDS: MELATONIN 5 MG TABLETS PO SCH (22:53)
[2022-05-15] MEDS: ROSUVASTATIN CA 10 MG TABLET PO SCH (22:53)
[2022-05-15] MEDS: LATANOPROST 0.005% OPHTH SOLN 2.5ML BOTTLE OU SCH (22:54)
[2022-05-16] MEDS: BACLOFEN 10 MG TABLET (FP) PO SCH ×3 (05:44→22:53)
[2022-05-16] MEDS: CALCIUM 500MG/VIT-D 200 UNITS COMBO TABLET (FP) PO SCH ×3 (05:45→22:55)
[2022-05-16] MEDS: PREGABALIN 50 MG CAPSULE PO SCH ×3 (05:45→22:53)
[2022-05-16] MEDS: INSULIN SLIDING SCALE (NOVOLOG) 1 VIAL SQ SCH ×3 (06:00→17:11)
[2022-05-16] MEDS: MULTIVITAMINS THER W-MINERALS COMBO TABLET (FP) PO SCH (06:01)
[2022-05-16 08:22] LABS: EOS % 0.1 % (0-4.5); HEMATOCRIT 33.4 % (32.4-45.2); HEMOGLOBIN 10.7 GM/dL (10.7-15.3); LYMPH % 13.6 % (8-40); MCH 28.3 pg (25.7-33.7); MCHC 32.2 g/dl (32.0-36.0); MEAN PLT VOLUME 10.3 fl (7.5-11.1); MONO % 8.1 % (3.8-10.2); NEUT % 78.2 % (42.8-82.8); PLATELET COUNT 138 10^3/uL (134-434); RBC 3.79 M/mm3 (3.60-5.2); RDW 15.8 % (11.6-15.6); WHITE BLOOD COUNT 7.1 K/mm3 (4.0-10.0)
[2022-05-16 08:41] LABS: CALCIUM 8.9 mg/dL (8.5-10.1)
[2022-05-16 08:42] LABS: ALBUMIN 2.9 g/dl (3.4-5.0); BLOOD UREA NITROGEN 40.3 mg/dL (7-18)
[2022-05-16 08:45] LABS: CREATININE 1.9 mg/dL (0.55-1.3)
[2022-05-16 08:46] LABS: BILIRUBIN,TOTAL 0.4 mg/dL (0.2-1); TOT PROT 6.5 g/dl (6.4-8.2)
[2022-05-16] MEDS: PANTOPRAZOLE 40 MG TABLET PO SCH (10:33)
[2022-05-16] MEDS: ASCORBIC ACID 500 MG TABLET (FP) PO SCH ×2 (10:33→22:55)
[2022-05-16] MEDS: predniSONE 20 MG TABLET (UD) PO SCH (10:33)
[2022-05-16] MEDS: DOCUSATE SODIUM 100 MG CAPSULE (FP) PO SCH ×3 (10:33→22:52)
[2022-05-16] MEDS: HYDROCHLOROTHIAZIDE 12.5 MG CAPSULE (FP) PO SCH (10:34)
[2022-05-16] MEDS: PRAMIPEXOLE DIHYDROCHLORIDE 0.5 MG TABLET PO SCH ×3 (10:34→23:06)
[2022-05-16] MEDS: INSULIN (LEVEMIR) 100 UNITS/ML UNITS SQ SCH ×2 (10:35→23:56)
[2022-05-16] MEDS: TIMOLOL 0.5% OPHTHALMIC SOL 5 ML BOTTLE OU SCH (10:36)
[2022-05-16] MEDS ORDERED: INSULIN (LEVEMIR) 100 UNITS/ML UNITS SQ ONE (10:40)
[2022-05-16] MEDS: TOPIRAMATE 25 MG TABLET PO SCH ×3 (10:44→23:17)
[2022-05-16] MEDS: POLYETHYLENE GLYCOL (HEALTHYLAX) 3350 17 GM PACKET PO SCH (10:55)
[2022-05-16] MEDS: CLOPIDOGREL BISULFATE 75 MG TABLET (FP) PO SCH (10:55)
[2022-05-16] MEDS: ASPIRIN 81 MG CHEWABLE TABLETS PO SCH (10:55)
[2022-05-16] MEDS: BRIMONIDINE TARTRATE 0.2% OPHTHALMIC 5 ML BOTTLE OU SCH ×2 (10:55→23:20)
[2022-05-16] MEDS ORDERED: LIDOCAINE HCL 1%, 10 MG/ML (20ML VIAL) ONE (14:32)
[2022-05-16] MEDS ORDERED: BUPIVACAINE HCL/PF 0.5% (5MG/ML) 10 ML VIAL ONE (14:32)
[2022-05-16] MEDS ORDERED: MIDAZOLAM HCL 2 MG/2 ML SINGLE DOSE VIAL ONE (15:22)
[2022-05-16] MEDS ORDERED: PROPOFOL 20 ML ONE (15:22)
[2022-05-16] MEDS ORDERED: LIDOCAINE HCL 1%, 10 MG/ML (20ML VIAL) NR ONE (16:04)
[2022-05-16] MEDS ORDERED: BUPIVACAINE HCL/PF 0.5% (5MG/ML) 10 ML VIAL IJ ONE (16:04)
[2022-05-16] MEDS ORDERED: METOCLOPRAMIDE HCL INJECTION 10 MG/2 ML VIAL IVPUSH PRN (19:47)
[2022-05-16] MEDS ORDERED: LATANOPROST 0.005% OPHTH SOLN 2.5ML BOTTLE OU SCH (22:00)
[2022-05-16] MEDS ORDERED: ROSUVASTATIN CA 10 MG TABLET PO SCH (22:00)
[2022-05-16] MEDS: MELATONIN 5 MG TABLETS PO SCH (22:54)
[2022-05-17] MEDS: INSULIN SLIDING SCALE (NOVOLOG) 1 VIAL SQ SCH ×3 (00:18→12:24)
[2022-05-17] MEDS: CALCIUM 500MG/VIT-D 200 UNITS COMBO TABLET (FP) PO SCH ×2 (05:43→15:14)
[2022-05-17] MEDS: BACLOFEN 10 MG TABLET (FP) PO SCH ×2 (05:43→15:14)
[2022-05-17] MEDS: PREGABALIN 50 MG CAPSULE PO SCH ×2 (05:43→15:14)
[2022-05-17] MEDS: MULTIVITAMINS THER W-MINERALS COMBO TABLET (FP) PO SCH (06:05)
[2022-05-17] MEDS: INSULIN (LEVEMIR) 100 UNITS/ML UNITS SQ SCH (06:07)
[2022-05-17 09:24] LABS: HEMATOCRIT 35.2 % (32.4-45.2); HEMOGLOBIN 11.2 GM/dL (10.7-15.3); MCH 27.9 pg (25.7-33.7); MCHC 31.9 g/dl (32.0-36.0); MEAN CELL VOLUME 87.5 fl (80-96); MEAN PLT VOLUME 10.5 fl (7.5-11.1); PLATELET COUNT 142 10^3/uL (134-434); RBC 4.02 M/mm3 (3.60-5.2); RDW 15.9 % (11.6-15.6); WHITE BLOOD COUNT 6.7 K/mm3 (4.0-10.0)
[2022-05-17 09:51] LABS: CALCIUM 8.8 mg/dL (8.5-10.1)
[2022-05-17 09:52] LABS: ALBUMIN 2.8 g/dl (3.4-5.0); BLOOD UREA NITROGEN 50.2 mg/dL (7-18)
[2022-05-17 09:55] LABS: PHOSPHOROUS 3.6 mg/dL (2.5-4.9)
[2022-05-17 09:56] LABS: TOT PROT 6.3 g/dl (6.4-8.2)
[2022-05-17 09:57] LABS: BILIRUBIN,TOTAL 0.4 mg/dL (0.2-1)
[2022-05-17] MEDS ORDERED: TIMOLOL 0.5% OPHTHALMIC SOL 5 ML BOTTLE OU SCH (10:00)
[2022-05-17] MEDS ORDERED: PANTOPRAZOLE 40 MG TABLET PO SCH (10:00)
[2022-05-17] MEDS ORDERED: HYDROCHLOROTHIAZIDE 12.5 MG CAPSULE (FP) PO SCH (10:00)
[2022-05-17] MEDS ORDERED: ASPIRIN 81 MG CHEWABLE TABLETS PO SCH (10:00)
[2022-05-17] MEDS ORDERED: CLOPIDOGREL BISULFATE 75 MG TABLET (FP) PO SCH (10:00)
[2022-05-17] MEDS: PRAMIPEXOLE DIHYDROCHLORIDE 0.5 MG TABLET PO SCH (12:11)
[2022-05-17] MEDS: predniSONE 20 MG TABLET (UD) PO SCH (12:11)
[2022-05-17] MEDS: POLYETHYLENE GLYCOL (HEALTHYLAX) 3350 17 GM PACKET PO SCH (12:12)
[2022-05-17] MEDS: BRIMONIDINE TARTRATE 0.2% OPHTHALMIC 5 ML BOTTLE OU SCH (12:12)
[2022-05-17] MEDS: TOPIRAMATE 25 MG TABLET PO SCH (12:12)
[2022-05-17] MEDS: DOCUSATE SODIUM 100 MG CAPSULE (FP) PO SCH (12:12)
[2022-05-17] MEDS: ASCORBIC ACID 500 MG TABLET (FP) PO SCH (12:13)
[2022-05-17 14:25] VITALS: BP 113/51; PULSE 56; RESP 18; TEMP 97.9
== END 2022-05-17 16:30 | disposition home or self-care (01) | DRG 516 ==
LOC: JER 11:31 → JERBED 19:16 → J4W 23:06 → J7W 05-16 18:35
PROVIDERS: ADMIT Internal Medicine
PROC: 03BT0ZX Excision of Left Temporal Artery, Open Approach, Diagnostic (ICD-10-PCS; principal; 2022-05-16 15:30)
DX: M31.6 Other giant cell arteritis (principal); I13.0 Hypertensive heart and chronic kidney disease with heart failure and stage 1 through stage 4 chronic kidney disease, or unspecified chronic kidney disease; N39.0 Urinary tract infection, site not specified; Z68.41 Body mass index [BMI] 40.0-44.9, adult; I50.32 Chronic diastolic (congestive) heart failure; Z68.42 Body mass index [BMI] 45.0-49.9, adult; E66.9 Obesity, unspecified; E66.01 Morbid (severe) obesity due to excess calories; G20 Parkinson's disease; J44.9 Chronic obstructive pulmonary disease, unspecified; I48.91 Unspecified atrial fibrillation; H40.9 Unspecified glaucoma; K21.9 Gastro-esophageal reflux disease without esophagitis; H54.40 Blindness, one eye, unspecified eye; E11.40 Type 2 diabetes mellitus with diabetic neuropathy, unspecified; G43.909 Migraine, unspecified, not intractable, without status migrainosus; I25.10 Atherosclerotic heart disease of native coronary artery without angina pectoris; E78.5 Hyperlipidemia, unspecified; N18.9 Chronic kidney disease, unspecified; E11.22 Type 2 diabetes mellitus with diabetic chronic kidney disease; Z74.01 Bed confinement status; Z85.51 Personal history of malignant neoplasm of bladder; Z86.718 Personal history of other venous thrombosis and embolism; Z86.73 Personal history of transient ischemic attack (TIA), and cerebral infarction without residual deficits; Z96.651 Presence of right artificial knee joint
CPT/HCPCS: 36415; 70450-TC; 71045-TC-FY; 80053; 80061; 81003; 82607; 82803; 82962; 83036; 83735; 84100; 84443; 84484; 85025; 85027; 85610; 85651; 86593; 86850; 86900; 86901; 88305-TC; 93005; 93010; 97116-GP; 97162-GP; 99285-25; C9803-CS; J0475; U0003; U0005

== ENCOUNTER 2022-07-29 22:55 | Inpatient (IN) | payer OTHER ==
[2022-07-29 23:22] VITALS: BMI 47.8
[2022-07-30 01:59] LABS: BASO % 0.5 % (0-2.0); EOS % 1.8 % (0-4.5); HEMATOCRIT 34.5 % (32.4-45.2); HEMOGLOBIN 10.7 GM/dL (10.7-15.3); LYMPH % 21.2 % (8-40); MCH 27.7 pg (25.7-33.7); MCHC 31.1 g/dl (32.0-36.0); MEAN CELL VOLUME 88.9 fl (80-96); MONO % 6.7 % (3.8-10.2); NEUT % 69.8 % (42.8-82.8); PLATELET COUNT 115 10^3/uL (134-434); RBC 3.88 M/mm3 (3.60-5.2); RDW 16.1 % (11.6-15.6); WHITE BLOOD COUNT 5.2 K/mm3 (4.0-10.0)
[2022-07-30 02:06] LABS: EPI CELLS 22 /uL (0-25.1); HYALINE CASTS 36 /uL (0-3.1); PH,URINE >= 9.0 (5.0-8.0); URINE APPEARANCE TURBID; URINE BACTERIA 6200 /uL (0-1359); URINE BILIRUBIN NEGATIVE (NEGATIVE); URINE COLOR YELLOW; URINE GLUCOSE (UA) NEGATIVE (NEGATIVE); URINE KETONE NEGATIVE (NEGATIVE); URINE LEUK ESTERASE 2+ (NEGATIVE); URINE NITRITE NEGATIVE (NEGATIVE); URINE PROTEIN 2+ (NEGATIVE); URINE RBC 36 /uL (0-23.9); URINE UROBILINOGEN 0.2 mg/dL (0.2-1.0); URINE WBC 263 /uL (0-25.8)
[2022-07-30 02:17] LABS: CHLORIDE 108 mmol/L (98-107); SODIUM 144 mmol/L (136-145)
[2022-07-30 02:19] LABS: ALBUMIN 3.1 g/dl (3.4-5.0); ANION GAP 7 MMOL/L (8-16); BLOOD UREA NITROGEN 33.3 mg/dL (7-18); CALCIUM 8.5 mg/dL (8.5-10.1); CO2 28 mmol/L (21-32); GLUCOSE,RANDOM 252 mg/dL (74-106)
[2022-07-30 02:22] LABS: SGOT/AST 21 U/L (15-37); SGPT/ALT 17 U/L (13-61)
[2022-07-30 02:24] LABS: BILIRUBIN,TOTAL 0.3 mg/dL (0.2-1); TOT PROT 6.4 g/dl (6.4-8.2)
[2022-07-30 02:25] LABS: ALK PHOS 172 U/L (45-117)
[2022-07-30 02:30] VITALS: TEMP 97.9
[2022-07-30] MEDS ORDERED: LACTATED RINGERS SOLUTION 1000 ML INFUS.BAG IV ONE (02:52)
[2022-07-30] MEDS ORDERED: ACETAMINOPHEN 1000 MG/100 ML BAG IVPB PRN (06:24)
[2022-07-30] MEDS ORDERED: SODIUM CHLORIDE 1,000 ML IV SCH (06:30)
[2022-07-30 09:14] VITALS: BP 130/57; PULSE 62; RESP 18
[2022-07-30] MEDS: INSULIN SLIDING SCALE (NOVOLOG) 1 VIAL SQ SCH ×2 (09:59→14:43)
[2022-07-30] MEDS ORDERED: ACETAMINOPHEN INJECTION 100 ML IVPB ONE (10:03)
[2022-07-30] MEDS ORDERED: FUROSEMIDE 40 MG TABLET (FP) PO PRN (12:57)
[2022-07-30] MEDS ORDERED: POLYETHYLENE GLYCOL (HEALTHYLAX) 3350 17 GM PACKET PO PRN (12:57)
[2022-07-30] MEDS ORDERED: CLOPIDOGREL BISULFATE 75 MG TABLET (FP) PO SCH (13:00)
[2022-07-30] MEDS ORDERED: PANTOPRAZOLE 40 MG TABLET PO SCH (13:00)
[2022-07-30] MEDS ORDERED: ROSUVASTATIN CA 20 MG TABLET ONE (13:40)
[2022-07-30] MEDS ORDERED: HEPARIN NA (PORCINE) 5,000 UNITS/ML 1ML VIAL ONE (13:42)
[2022-07-30] MEDS ORDERED: HEPARIN NA (PORCINE) 5,000 UNITS/ML 1ML VIAL SQ SCH (14:00)
[2022-07-30] MEDS ORDERED: TIMOLOL 0.5% OPHTHALMIC SOL 5 ML BOTTLE OU SCH (22:00)
[2022-07-30] MEDS ORDERED: PREGABALIN 50 MG CAPSULE PO SCH (22:00)
[2022-07-30] MEDS ORDERED: BACLOFEN 10 MG TABLET (FP) PO SCH (22:00)
[2022-07-30] MEDS ORDERED: PATIENT'S OWN MEDICATION (NON-FORMULARY) (Combigan 0.2%-0.5% Eye Drops 1 DROP) OU SCH (22:00)
[2022-07-30] MEDS ORDERED: LATANOPROST 0.005% OPHTH SOLN 2.5ML BOTTLE OU SCH (22:00)
[2022-07-30] MEDS ORDERED: DOCUSATE SODIUM 100 MG CAPSULE (FP) PO SCH (22:00)
[2022-07-30] MEDS ORDERED: ASCORBIC ACID 500 MG TABLET (FP) PO SCH (22:00)
[2022-07-30] MEDS ORDERED: BRIMONIDINE TARTRATE 0.2% OPHTHALMIC 5 ML BOTTLE OU SCH (22:00)
[2022-07-30] MEDS ORDERED: ROSUVASTATIN CA 10 MG TABLET PO SCH (22:00)
[2022-07-31] MEDS ORDERED: PATIENT'S OWN MEDICATION (NON-FORMULARY) (Jardiance 25 MG) PO SCH (10:00)
== END 2022-07-30 18:00 | disposition left against medical advice (07) | DRG 690 ==
LOC: JER 22:55 → JERBED 07-30 04:05 → MERGE 07-30 04:05
PROVIDERS: ADMIT Internal Medicine; ATTEND Internal Medicine
DX: N39.0 Urinary tract infection, site not specified (principal); N17.9 Acute kidney failure, unspecified; I24.8 Other forms of acute ischemic heart disease; I45.2 Bifascicular block; Z68.42 Body mass index [BMI] 45.0-49.9, adult; N18.9 Chronic kidney disease, unspecified; I12.9 Hypertensive chronic kidney disease with stage 1 through stage 4 chronic kidney disease, or unspecified chronic kidney disease; E11.22 Type 2 diabetes mellitus with diabetic chronic kidney disease; M06.9 Rheumatoid arthritis, unspecified; E78.5 Hyperlipidemia, unspecified; E66.9 Obesity, unspecified
CPT/HCPCS: 0241U-QW; 36415; 71045-TC-FY; 80053; 81003; 82962; 83605; 84484; 85025; 87086; 87186; 93005; 93010; 93970-TC; 99285-25; J1644

== ENCOUNTER 2023-06-20 11:11 | Inpatient (IN) | payer OTHER ==
[2023-06-20] MEDS ORDERED: ACETAMINOPHEN 1000 MG/100 ML BAG IVPB ONE (13:09)
[2023-06-20 13:12] LABS: BASO % 0.3 % (0-2.0); EOS % 1.4 % (0-4.5); HEMATOCRIT 34.4 % (32.4-45.2); HEMOGLOBIN 10.5 GM/dL (10.7-15.3); MCH 27.1 pg (25.7-33.7); MCHC 30.6 g/dl (32.0-36.0); MEAN CELL VOLUME 88.5 fl (80-96); MEAN PLT VOLUME 10.7 fl (7.5-11.1); MONO % 5.8 % (3.8-10.2); NEUT % 79.5 % (42.8-82.8); PLATELET COUNT 165 10^3/uL (134-434); RBC 3.88 M/mm3 (3.60-5.2); RDW 16.4 % (11.6-15.6); WHITE BLOOD COUNT 5.5 K/mm3 (4.0-10.0)
[2023-06-20 13:18] LABS: EPI CELLS 14 /uL (0-25.1); HYALINE CASTS 13 /uL (0-3.1); URINE APPEARANCE CLEAR; URINE BACTERIA >9,000 /uL (0-1359); URINE BILIRUBIN NEGATIVE (NEGATIVE); URINE COLOR YELLOW; URINE GLUCOSE (UA) NEGATIVE (NEGATIVE); URINE KETONE NEGATIVE (NEGATIVE); URINE LEUK ESTERASE 3+ (NEGATIVE); URINE NITRITE POSITIVE (NEGATIVE); URINE PROTEIN NEGATIVE (NEGATIVE); URINE RBC 69 /uL (0-23.9); URINE UROBILINOGEN 0.2 mg/dL (0.2-1.0); URINE WBC 843 /uL (0-25.8)
[2023-06-20] MEDS ORDERED: ACETAMINOPHEN INJECTION 100 ML IVPB ONE (13:26)
[2023-06-20 13:39] LABS: ACTIVATED PTT 35.2 SECONDS (25.2-36.5); INR 1.13 (0.83-1.09); PROTHROMBIN TIME (PATIENT) 13.1 SEC (9.7-13.0)
[2023-06-20 13:48] LABS: POTASSIUM 4.9 mmol/L (3.5-5.1)
[2023-06-20 13:51] LABS: ALBUMIN 3.2 g/dl (3.4-5.0); BLOOD UREA NITROGEN 31.1 mg/dL (7-18); CALCIUM 8.5 mg/dL (8.5-10.1)
[2023-06-20 13:55] LABS: BILIRUBIN,TOTAL 0.6 mg/dL (0.2-1); TOT PROT 7.2 g/dl (6.4-8.2)
[2023-06-20 13:56] LABS: CREATININE 1.9 mg/dL (0.55-1.3)
[2023-06-20] MEDS ORDERED: LACTATED RINGERS SOLUTION 1,000 ML/1,000 ML INFUS.BAG IV SCH (15:45)
[2023-06-20] MEDS ORDERED: CEFTRIAXONE 1 GM in DEXTROSE 5%-WATER - 50 ML IVPB SCH (17:30)
[2023-06-20] MEDS: ACETAMINOPHEN 1000 MG/100 ML BAG IVPB PRN (21:58)
[2023-06-20] MEDS: INSULIN SLIDING SCALE (NOVOLOG) 1 VIAL SQ SCH (22:02)
[2023-06-20] MEDS: DEXTROSE 5%-0.45% SALINE 1,000 ML IV SCH (22:59)
[2023-06-21 06:18] VITALS: BMI 47.1
[2023-06-21] MEDS: INSULIN SLIDING SCALE (NOVOLOG) 1 VIAL SQ SCH ×4 (07:05→22:36)
[2023-06-21] MEDS: ACETAMINOPHEN 1000 MG/100 ML BAG IVPB PRN (07:24)
[2023-06-21 11:00] LABS: VENOUS BASE EXCESS -2.7 mmol/L (-2-2); VENOUS O2 SATURATION 77.4 % (70-80); VENOUS PCO2 45.9 mmHg (38-52); VENOUS PH 7.325 (7.310-7.410)
[2023-06-21 11:05] LABS: BASO % 0.3 % (0-2.0); EOS % 4.1 % (0-4.5); HEMATOCRIT 30.9 % (32.4-45.2); LYMPH % 27.9 % (8-40); MCH 27.9 pg (25.7-33.7); MCHC 32.3 g/dl (32.0-36.0); MEAN CELL VOLUME 86.4 fl (80-96); MEAN PLT VOLUME 9.7 fl (7.5-11.1); MONO % 10.1 % (3.8-10.2); NEUT % 57.6 % (42.8-82.8); PLATELET COUNT 119 10^3/uL (134-434); RBC 3.57 M/mm3 (3.60-5.2); WHITE BLOOD COUNT 3.2 K/mm3 (4.0-10.0)
[2023-06-21 11:36] LABS: POTASSIUM 4.3 mmol/L (3.5-5.1)
[2023-06-21 11:43] LABS: CALCIUM 8.7 mg/dL (8.5-10.1)
[2023-06-21 11:46] LABS: MAGNESIUM 1.8 mg/dL (1.8-2.4)
[2023-06-21 11:48] LABS: ALBUMIN 2.8 g/dl (3.4-5.0)
[2023-06-21 11:49] LABS: BILIRUBIN,TOTAL 1.1 mg/dL (0.2-1); CREATININE 1.7 mg/dL (0.55-1.3)
[2023-06-21] MEDS: DEXTROSE 5%-0.45% SALINE 1,000 ML IV SCH (14:53)
[2023-06-22] MEDS ORDERED: ACETAMINOPHEN 1000 MG/100 ML BAG IVPB ONE (04:12)
[2023-06-22] MEDS: INSULIN SLIDING SCALE (NOVOLOG) 1 VIAL SQ SCH ×4 (07:02→22:35)
[2023-06-22] MEDS: PANTOPRAZOLE SODIUM 40 MG VIAL IVPUSH SCH (09:47)
[2023-06-22] MEDS: ENOXAPARIN NA (PORCINE) 40 MG/0.4 ML DISP.SYRIN SQ SCH ×2 (11:47→11:49)
[2023-06-22] MEDS: CLOPIDOGREL BISULFATE 75 MG TABLET (FP) PO SCH (11:47)
[2023-06-22] MEDS: BACLOFEN 10 MG TABLET (FP) PO SCH (22:27)
[2023-06-22] MEDS: INSULIN (LEVEMIR) 100 UNITS/ML UNITS SQ SCH (22:27)
[2023-06-22] MEDS: ROSUVASTATIN CA 10 MG TABLET PO SCH ×2 (22:27→22:35)
[2023-06-22] MEDS: PRAMOXINE HCL/MINERAL OIL/ZNOX 30 GM TUBE RC SCH (22:36)
[2023-06-23] MEDS: INSULIN (LEVEMIR) 100 UNITS/ML UNITS SQ SCH ×2 (07:20→21:36)
[2023-06-23] MEDS: INSULIN SLIDING SCALE (NOVOLOG) 1 VIAL SQ SCH ×4 (07:21→21:35)
[2023-06-23] MEDS: PANTOPRAZOLE SODIUM 40 MG VIAL IVPUSH SCH (09:37)
[2023-06-23] MEDS: ENOXAPARIN NA (PORCINE) 40 MG/0.4 ML DISP.SYRIN SQ SCH (09:37)
[2023-06-23] MEDS: HYDROCHLOROTHIAZIDE 12.5 MG CAPSULE (FP) PO SCH (11:42)
[2023-06-23] MEDS: CLOPIDOGREL BISULFATE 75 MG TABLET (FP) PO SCH (11:42)
[2023-06-23 14:58] VITALS: RESP 18
[2023-06-23] MEDS: ROSUVASTATIN CA 10 MG TABLET PO SCH (21:30)
[2023-06-23] MEDS: BACLOFEN 10 MG TABLET (FP) PO SCH (21:30)
[2023-06-23] MEDS: PRAMOXINE HCL/MINERAL OIL/ZNOX 30 GM TUBE RC SCH (21:36)
[2023-06-24] MEDS: INSULIN SLIDING SCALE (NOVOLOG) 1 VIAL SQ SCH ×4 (06:57→21:52)
[2023-06-24] MEDS: INSULIN (LEVEMIR) 100 UNITS/ML UNITS SQ SCH ×2 (06:57→21:51)
[2023-06-24 10:02] LABS: HEMATOCRIT 33.9 % (32.4-45.2); HEMOGLOBIN 10.9 GM/dL (10.7-15.3); MCH 28.1 pg (25.7-33.7); MCHC 32.1 g/dl (32.0-36.0); MEAN CELL VOLUME 87.5 fl (80-96); MEAN PLT VOLUME 10.2 fl (7.5-11.1); PLATELET COUNT 136 10^3/uL (134-434); RBC 3.87 M/mm3 (3.60-5.2); RDW 16.3 % (11.6-15.6); WHITE BLOOD COUNT 4.9 K/mm3 (4.0-10.0)
[2023-06-24 10:22] LABS: POTASSIUM 3.7 mmol/L (3.5-5.1)
[2023-06-24] MEDS: HYDROCHLOROTHIAZIDE 12.5 MG CAPSULE (FP) PO SCH (10:22)
[2023-06-24] MEDS: CLOPIDOGREL BISULFATE 75 MG TABLET (FP) PO SCH (10:22)
[2023-06-24] MEDS: ENOXAPARIN NA (PORCINE) 40 MG/0.4 ML DISP.SYRIN SQ SCH (10:24)
[2023-06-24] MEDS: PANTOPRAZOLE SODIUM 40 MG VIAL IVPUSH SCH (10:25)
[2023-06-24 10:47] LABS: CALCIUM 8.5 mg/dL (8.5-10.1)
[2023-06-24 10:48] LABS: ALBUMIN 3.2 g/dl (3.4-5.0); BLOOD UREA NITROGEN 17.4 mg/dL (7-18); MAGNESIUM 1.7 mg/dL (1.8-2.4)
[2023-06-24 10:51] LABS: CREATININE 1.8 mg/dL (0.55-1.3)
[2023-06-24 10:52] LABS: BILIRUBIN,TOTAL 0.8 mg/dL (0.2-1); PHOSPHOROUS 3.2 mg/dL (2.5-4.9)
[2023-06-24 14:13] LABS: EPI CELLS >36 /uL (0-25.1); HYALINE CASTS 37 /uL (0-3.1); PH,URINE 6.5 (5.0-8.0); URINE APPEARANCE TURBID; URINE BACTERIA >9,000 /uL (0-1359); URINE BILIRUBIN NEGATIVE (NEGATIVE); URINE COLOR YELLOW; URINE GLUCOSE (UA) NEGATIVE (NEGATIVE); URINE KETONE TRACE (NEGATIVE); URINE LEUK ESTERASE 3+ (NEGATIVE); URINE NITRITE POSITIVE (NEGATIVE); URINE PROTEIN 1+ (NEGATIVE); URINE UROBILINOGEN 0.2 mg/dL (0.2-1.0); URINE WBC 4443 /uL (0-25.8)
[2023-06-24] MEDS: MAGNESIUM OXIDE 400 MG TABLET (FP) PO SCH ×2 (14:20→21:35)
[2023-06-24] MEDS ORDERED: LOPERAMIDE HCL 2 MG CAPSULE PO ONE ×2 (14:42→22:49)
[2023-06-24 15:08] LABS: URINE RBC 82.6 /uL (0-23.9)
[2023-06-24] MEDS ORDERED: INSULIN (NOVOLOG) ASPART 100 UNITS/ML 10ML VIAL ONE (17:28)
[2023-06-24] MEDS: PANTOPRAZOLE 40 MG TABLET PO SCH (17:45)
[2023-06-24] MEDS: BACLOFEN 10 MG TABLET (FP) PO SCH (21:35)
[2023-06-24] MEDS: ROSUVASTATIN CA 10 MG TABLET PO SCH (21:36)
[2023-06-24] MEDS: PRAMOXINE HCL/MINERAL OIL/ZNOX 30 GM TUBE RC SCH (21:36)
[2023-06-25] MEDS: INSULIN SLIDING SCALE (NOVOLOG) 1 VIAL SQ SCH ×4 (06:03→22:01)
[2023-06-25] MEDS: INSULIN (LEVEMIR) 100 UNITS/ML UNITS SQ SCH ×2 (06:03→22:01)
[2023-06-25] MEDS: MAGNESIUM OXIDE 400 MG TABLET (FP) PO SCH ×2 (10:21→21:55)
[2023-06-25] MEDS: CLOPIDOGREL BISULFATE 75 MG TABLET (FP) PO SCH (10:21)
[2023-06-25] MEDS: PANTOPRAZOLE 40 MG TABLET PO SCH (10:21)
[2023-06-25] MEDS: ENOXAPARIN NA (PORCINE) 40 MG/0.4 ML DISP.SYRIN SQ SCH (10:34)
[2023-06-25] MEDS ORDERED: INSULIN (NOVOLOG) ASPART 100 UNITS/ML 10ML VIAL ONE (11:52)
[2023-06-25] MEDS: BACLOFEN 10 MG TABLET (FP) PO SCH (21:55)
[2023-06-25] MEDS: ROSUVASTATIN CA 10 MG TABLET PO SCH (21:55)
[2023-06-25] MEDS: PRAMOXINE HCL/MINERAL OIL/ZNOX 30 GM TUBE RC SCH (21:55)
[2023-06-26] MEDS: INSULIN (LEVEMIR) 100 UNITS/ML UNITS SQ SCH ×2 (06:01→06:05)
[2023-06-26] MEDS: INSULIN SLIDING SCALE (NOVOLOG) 1 VIAL SQ SCH ×2 (06:02→11:49)
[2023-06-26] MEDS: MAGNESIUM OXIDE 400 MG TABLET (FP) PO SCH (09:29)
[2023-06-26] MEDS: PANTOPRAZOLE 40 MG TABLET PO SCH (09:29)
[2023-06-26] MEDS: ENOXAPARIN NA (PORCINE) 40 MG/0.4 ML DISP.SYRIN SQ SCH (09:29)
[2023-06-26] MEDS: CLOPIDOGREL BISULFATE 75 MG TABLET (FP) PO SCH (09:29)
[2023-06-26] MEDS ORDERED: INSULIN (NOVOLOG) ASPART 100 UNITS/ML 10ML VIAL ONE (11:46)
[2023-06-26 12:42] VITALS: TEMP 97.8
[2023-06-26 13:48] VITALS: BP 148/67; PULSE 82
== END 2023-06-26 16:42 | DRG 389 ==
LOC: JER 11:11 → JERBED 15:45 → J6S 19:41 → OBSVTOIN 06-22 10:19
PROVIDERS: ADMIT Internal Medicine; ATTEND Internal Medicine
DX: K56.609 Unspecified intestinal obstruction, unspecified as to partial versus complete obstruction (principal); D61.818 Other pancytopenia; N13.30 Unspecified hydronephrosis; Z68.41 Body mass index [BMI] 40.0-44.9, adult; E11.9 Type 2 diabetes mellitus without complications; E66.01 Morbid (severe) obesity due to excess calories; N18.9 Chronic kidney disease, unspecified; E78.5 Hyperlipidemia, unspecified; I12.9 Hypertensive chronic kidney disease with stage 1 through stage 4 chronic kidney disease, or unspecified chronic kidney disease; K21.9 Gastro-esophageal reflux disease without esophagitis
CPT/HCPCS: 0241U-QW; 36415; 71046-TC-FY; 74018-TC-FY; 74176-TC; 80053; 81003; 82607; 82728; 82746; 82803; 82962; 83540; 83550; 83605; 83615; 83690; 83735; 84100; 84484; 85025; 85027; 85610; 85730; 86140; 86850; 86900; 86901; 87086; 87186; 87635; 93005; 93010; 97116-GP; 97162-GP; 99285-25; G0378; J0475

== ENCOUNTER 2023-10-08 21:17 | Inpatient (IN) | payer OTHER ==
[2023-10-08 21:37] VITALS: BMI 44.2
[2023-10-08] MEDS ORDERED: ACETAMINOPHEN INJECTION 100 ML IVPB ONE (22:07)
[2023-10-08 22:11] LABS: BASO % 0.3 % (0-2.0); EOS % 0.7 % (0-4.5); HEMATOCRIT 32.7 % (32.4-45.2); HEMOGLOBIN 10.5 GM/dL (10.7-15.3); LYMPH % 16.1 % (8-40); MCH 28.4 pg (25.7-33.7); MCHC 32.1 g/dl (32.0-36.0); MEAN CELL VOLUME 88.2 fl (80-96); MEAN PLT VOLUME 10.5 fl (7.5-11.1); MONO % 6.3 % (3.8-10.2); NEUT % 76.6 % (42.8-82.8); PLATELET COUNT 142 10^3/uL (134-434); RBC 3.71 M/mm3 (3.60-5.2); RDW 18.3 % (11.6-15.6); WHITE BLOOD COUNT 5.3 K/mm3 (4.0-10.0)
[2023-10-08 22:21] LABS: CHLORIDE 112 mmol/L (98-107); SODIUM 139 mmol/L (136-145)
[2023-10-08] MEDS: ACETAMINOPHEN 1000 MG/100 ML BAG IVPB ONE (22:21)
[2023-10-08 22:24] LABS: ALBUMIN 2.7 g/dl (3.4-5.0); BLOOD UREA NITROGEN 18.7 mg/dL (7-18); CALCIUM 8.5 mg/dL (8.5-10.1); CO2 25 mmol/L (21-32); GLUCOSE,RANDOM 72 mg/dL (74-106)
[2023-10-08 22:27] LABS: CREATININE 1.8 mg/dL (0.55-1.3); SGOT/AST 60 U/L (15-37)
[2023-10-08] MEDS: SODIUM CHLORIDE 0.9% 500 ML INFUS.BAG IV ONE (22:28)
[2023-10-08 22:29] LABS: BILIRUBIN,TOTAL 0.6 mg/dL (0.2-1); TOT PROT 7.6 g/dl (6.4-8.2)
[2023-10-08 22:30] LABS: ALK PHOS 178 U/L (45-117)
[2023-10-08 22:49] LABS: EPI CELLS 5 /uL (0-25.1); HYALINE CASTS 4 /uL (0-3.1); URINE APPEARANCE CLOUDY; URINE BACTERIA 3817 /uL (0-1359); URINE BILIRUBIN NEGATIVE (NEGATIVE); URINE COLOR YELLOW; URINE GLUCOSE (UA) NEGATIVE (NEGATIVE); URINE KETONE NEGATIVE (NEGATIVE); URINE LEUK ESTERASE 3+ (NEGATIVE); URINE NITRITE POSITIVE (NEGATIVE); URINE PROTEIN NEGATIVE (NEGATIVE); URINE RBC 82 /uL (0-23.9); URINE UROBILINOGEN 0.2 mg/dL (0.2-1.0); URINE WBC 879 /uL (0-25.8)
[2023-10-08 22:52] LABS: ANION GAP 2 mmol/L (4-13); POTASSIUM > 10.0 mmol/L (3.5-5.1); SGPT/ALT 23 U/L (13-61)
[2023-10-09] MEDS ORDERED: CEFTRIAXONE 1 GM/50 ML BAG ONE (00:15)
[2023-10-09] MEDS ORDERED: ONDANSETRON 4 MG/2 ML VIAL ONE ×2 (00:31→02:13)
[2023-10-09] MEDS: CEFTRIAXONE 1,000 MG in DEXTROSE 5%-WATER - 50 ML IVPB ONE (00:51)
[2023-10-09] MEDS: ONDANSETRON 4 MG/2 ML VIAL IVPUSH ONE ×2 (00:51→02:15)
[2023-10-09 01:00] LABS: POTASSIUM 5.2 mmol/L (3.5-5.1)
[2023-10-09 01:01] LABS: BLOOD UREA NITROGEN 18.4 mg/dL (7-18); CALCIUM 8.7 mg/dL (8.5-10.1)
[2023-10-09 01:05] LABS: CREATININE 1.7 mg/dL (0.55-1.3)
[2023-10-09] MEDS: morphine CARPU-JECT 2 MG/1 ML DISP.SYRIN IVPUSH ONE (02:01)
[2023-10-09] MEDS ORDERED: LIDOCAINE HCL 2% JELLY 11 ML TP ONE (05:14)
[2023-10-09 05:48] LABS: MAGNESIUM 1.9 mg/dL (1.8-2.4)
[2023-10-09] MEDS: SODIUM CHLORIDE 1,000 ML IV SCH (06:50)
[2023-10-09] MEDS: MINERAL OIL ENEMA 133 ML ENEMA RC ONE ×2 (06:51→08:52)
[2023-10-09] MEDS ORDERED: ONDANSETRON 4 MG/2 ML VIAL IVPUSH PRN (08:15)
[2023-10-09] MEDS: INSULIN ASPART SLIDING SCALE (NOVOLOG) 1 VIAL SQ SCH (08:38)
[2023-10-09] MEDS ORDERED: PANTOPRAZOLE SODIUM 40 MG VIAL ONE (10:42)
[2023-10-09] MEDS: SILVER SULFADIAZINE 1% TOP CREAM 50 GM JAR TP SCH (11:02)
[2023-10-09] MEDS: PANTOPRAZOLE SODIUM 40 MG VIAL IVPUSH SCH (11:02)
[2023-10-09 11:35] LABS: POTASSIUM 5.5 mmol/L (3.5-5.1)
[2023-10-09 11:37] LABS: CALCIUM 8.1 mg/dL (8.5-10.1)
[2023-10-09 11:38] LABS: ALBUMIN 2.7 g/dl (3.4-5.0); BLOOD UREA NITROGEN 18.8 mg/dL (7-18)
[2023-10-09 11:41] LABS: CREATININE 1.8 mg/dL (0.55-1.3)
[2023-10-09 11:43] LABS: BILIRUBIN,TOTAL 0.7 mg/dL (0.2-1); TOT PROT 6.7 g/dl (6.4-8.2)
[2023-10-09] MEDS: SODIUM CHLORIDE 0.45% 1,000 ML IV SCH (12:57)
[2023-10-09 15:29] VITALS: RESP 18
[2023-10-09] MEDS: ACETAMINOPHEN 1000 MG/100 ML BAG IVPB PRN (21:20)
[2023-10-10] MEDS: ENOXAPARIN NA (PORCINE) 40 MG/0.4 ML DISP.SYRIN SQ SCH (10:04)
[2023-10-11] MEDS ORDERED: HALOPERIDOL 1 MG TABLET PO ONE (00:37)
[2023-10-11] MEDS: QUEtiapine FUMARATE 25 MG TABLET PO ONE (01:10)
[2023-10-11] MEDS: DOCUSATE SODIUM 100 MG CAPSULE (FP) PO SCH (21:41)
[2023-10-12 05:16] VITALS: BP 143/66; TEMP 98.7
[2023-10-12 08:01] LABS: BASO % 0.3 % (0-2.0); EOS % 1.4 % (0-4.5); HEMATOCRIT 29.3 % (32.4-45.2); HEMOGLOBIN 9.4 GM/dL (10.7-15.3); LYMPH % 23.6 % (8-40); MCH 28.5 pg (25.7-33.7); MEAN PLT VOLUME 9.8 fl (7.5-11.1); MONO % 12.1 % (3.8-10.2); NEUT % 62.6 % (42.8-82.8); PLATELET COUNT 143 10^3/uL (134-434); RBC 3.29 M/mm3 (3.60-5.2); RDW 17.3 % (11.6-15.6); WHITE BLOOD COUNT 4.2 K/mm3 (4.0-10.0)
[2023-10-12 08:14] LABS: POTASSIUM 4.6 mmol/L (3.5-5.1)
[2023-10-12 08:18] LABS: CALCIUM 8.5 mg/dL (8.5-10.1)
[2023-10-12 08:19] LABS: ALBUMIN 2.7 g/dl (3.4-5.0); BLOOD UREA NITROGEN 15.9 mg/dL (7-18)
[2023-10-12 08:22] LABS: CREATININE 1.7 mg/dL (0.55-1.3); PHOSPHOROUS 2.8 mg/dL (2.5-4.9)
[2023-10-12 08:23] LABS: BILIRUBIN,TOTAL 0.5 mg/dL (0.2-1); TOT PROT 6.6 g/dl (6.4-8.2)
[2023-10-12 11:26] VITALS: PULSE 82
== END 2023-10-12 13:16 | disposition home or self-care (01) | DRG 394 ==
LOC: JER 21:17 → JERBED 10-09 02:35 → OBSVTOIN 10-09 06:41 → J6S 10-09 11:41
PROVIDERS: ADMIT Internal Medicine; ATTEND Internal Medicine
DX: K43.6 Other and unspecified ventral hernia with obstruction, without gangrene (principal); Z68.41 Body mass index [BMI] 40.0-44.9, adult; I12.9 Hypertensive chronic kidney disease with stage 1 through stage 4 chronic kidney disease, or unspecified chronic kidney disease; E11.22 Type 2 diabetes mellitus with diabetic chronic kidney disease; M06.9 Rheumatoid arthritis, unspecified; E66.01 Morbid (severe) obesity due to excess calories; E78.5 Hyperlipidemia, unspecified; K21.9 Gastro-esophageal reflux disease without esophagitis; K57.30 Diverticulosis of large intestine without perforation or abscess without bleeding; E87.5 Hyperkalemia; G20.A1 Parkinson's disease without dyskinesia, without mention of fluctuations; N18.2 Chronic kidney disease, stage 2 (mild)
CPT/HCPCS: 36415; 71045-TC-FY; 74019-TC-FY; 74176-TC; 80048; 80053; 81003; 82962; 83605; 83690; 83735; 84100; 85025; 87040; 87086; 87186; 93005; 93010; 99285-25; G0378; J0131

== ENCOUNTER 2023-12-23 01:29 | Inpatient (IN) | payer OTHER ==
[2023-12-23 03:06] LABS: BASO % 0.5 % (0-2.0); EOS % 2.2 % (0-4.5); HEMATOCRIT 31.1 % (32.4-45.2); HEMOGLOBIN 9.8 GM/dL (10.7-15.3); LYMPH % 23.2 % (8-40); MCH 28.3 pg (25.7-33.7); MCHC 31.6 g/dl (32.0-36.0); MEAN CELL VOLUME 89.5 fl (80-96); MEAN PLT VOLUME 10.5 fl (7.5-11.1); MONO % 8.5 % (3.8-10.2); NEUT % 65.6 % (42.8-82.8); PLATELET COUNT 96 10^3/uL (134-434); RBC 3.48 M/mm3 (3.60-5.2); RDW 16.2 % (11.6-15.6); WHITE BLOOD COUNT 3.8 K/mm3 (4.0-10.0)
[2023-12-23 03:13] LABS: INR 1.09 (0.83-1.09); PROTHROMBIN TIME (PATIENT) 12.3 SEC (9.7-13.0)
[2023-12-23 03:16] LABS: ACTIVATED PTT 35.2 SECONDS (25.2-36.5)
[2023-12-23 03:26] LABS: POTASSIUM 4.7 mmol/L (3.5-5.1)
[2023-12-23 03:28] LABS: ALBUMIN 2.8 g/dl (3.4-5.0); BLOOD UREA NITROGEN 27.5 mg/dL (7-18); CALCIUM 8.5 mg/dL (8.5-10.1)
[2023-12-23 03:33] LABS: BILIRUBIN,TOTAL 0.4 mg/dL (0.2-1); TOT PROT 6.4 g/dl (6.4-8.2)
[2023-12-23] MEDS ORDERED: ACETAMINOPHEN INJECTION 100 ML IVPB ONE ×2 (03:37→09:23)
[2023-12-23] MEDS: ACETAMINOPHEN 1000 MG/100 ML BAG IVPB ONE (03:44)
[2023-12-23] MEDS ORDERED: FAMOTIDINE 20 MG TABLET ONE (08:57)
[2023-12-23] MEDS: SODIUM CHLORIDE 250 ML IV STA (08:57)
[2023-12-23] MEDS: FAMOTIDINE 20 MG TABLET PO SCH (09:04)
[2023-12-23] MEDS: ACETAMINOPHEN 1000 MG/100 ML BAG IVPB PRN (12:13)
[2023-12-23] MEDS: INSULIN ASPART SLIDING SCALE (NOVOLOG) 1 VIAL SQ SCH (12:15)
[2023-12-23 13:06] LABS: EPI CELLS >36 /uL (0-25.1); HYALINE CASTS 1 /uL (0-3.1); PH,URINE 6.5 (5.0-8.0); URINE APPEARANCE CLEAR; URINE BACTERIA 48 /uL (0-1359); URINE BILIRUBIN NEGATIVE (NEGATIVE); URINE COLOR YELLOW; URINE GLUCOSE (UA) NEGATIVE (NEGATIVE); URINE KETONE NEGATIVE (NEGATIVE); URINE LEUK ESTERASE 1+ (NEGATIVE); URINE NITRITE NEGATIVE (NEGATIVE); URINE PROTEIN TRACE (NEGATIVE); URINE RBC 133 /uL (0-23.9); URINE UROBILINOGEN 0.2 mg/dL (0.2-1.0); URINE WBC 63 /uL (0-25.8)
[2023-12-23] MEDS: ROSUVASTATIN CA 10 MG TABLET PO SCH (21:38)
[2023-12-24 08:51] LABS: BASO % 0.3 % (0-2.0); HEMATOCRIT 32.8 % (32.4-45.2); HEMOGLOBIN 10.2 GM/dL (10.7-15.3); LYMPH % 19.2 % (8-40); MCH 27.8 pg (25.7-33.7); MCHC 31.1 g/dl (32.0-36.0); MEAN CELL VOLUME 89.4 fl (80-96); MEAN PLT VOLUME 10.7 fl (7.5-11.1); MONO % 7.6 % (3.8-10.2); NEUT % 69.9 % (42.8-82.8); PLATELET COUNT 106 10^3/uL (134-434); RBC 3.67 M/mm3 (3.60-5.2); WHITE BLOOD COUNT 4.3 K/mm3 (4.0-10.0)
[2023-12-24 09:12] LABS: POTASSIUM 4.8 mmol/L (3.5-5.1)
[2023-12-24 09:14] LABS: CALCIUM 8.4 mg/dL (8.5-10.1)
[2023-12-24 09:15] LABS: ALBUMIN 2.8 g/dl (3.4-5.0); BLOOD UREA NITROGEN 24.1 mg/dL (7-18)
[2023-12-24 09:18] LABS: CREATININE 1.6 mg/dL (0.55-1.3)
[2023-12-24 09:19] LABS: TOT PROT 6.5 g/dl (6.4-8.2)
[2023-12-24 09:20] LABS: BILIRUBIN,TOTAL 0.6 mg/dL (0.2-1)
[2023-12-24] MEDS ORDERED: GLYCERIN 1 RECTAL SUPPOSITORY, ADULT RC PRN (10:49)
[2023-12-24] MEDS ORDERED: hydrOXYzine PAMOATE 25 MG CAPSULE (FP) PO PRN ×2 (11:21→14:29)
[2023-12-24] MEDS ORDERED: ACETAMINOPHEN 325 MG TABLET (FP) PO PRN (11:21)
[2023-12-24] MEDS: CLOPIDOGREL BISULFATE 75 MG TABLET (FP) PO SCH (12:02)
[2023-12-24] MEDS: MAGNESIUM HYDROX 2400MG/30ML ORAL SUSPENSION 30 ML CUP PO PRN ×2 (12:02→18:04)
[2023-12-24] MEDS: GLYCERIN 1 RECTAL SUPPOSITORY, ADULT RC ONE ×2 (13:02)
[2023-12-24] MEDS: DOCUSATE SODIUM 100 MG CAPSULE (FP) PO SCH ×2 (13:11→22:02)
[2023-12-24] MEDS: INSULIN ASPART SLIDING SCALE (NOVOLOG) 1 VIAL SQ SCH (16:50)
[2023-12-24] MEDS ORDERED: ASCORBIC ACID 500 MG TABLET (FP) PO SCH (22:00)
[2023-12-24] MEDS ORDERED: PREGABALIN 50 MG CAPSULE PO SCH (22:00)
[2023-12-24] MEDS: ROSUVASTATIN CA 10 MG TABLET PO SCH (22:01)
[2023-12-24] MEDS: PREGABALIN 50 MG CAPSULE PO SCH (22:02)
[2023-12-24] MEDS: ASCORBIC ACID 500 MG TABLET (FP) PO SCH (22:02)
[2023-12-25 05:42] VITALS: RESP 18
[2023-12-25] MEDS ORDERED: CHOLECALCIFEROL (VIT D3) 1,000 UNIT (25 MCG) TABLET PO SCH (10:00)
[2023-12-25] MEDS ORDERED: PANTOPRAZOLE 40 MG TABLET PO SCH (10:00)
[2023-12-25] MEDS ORDERED: CYANOCOBALAMIN 1,000 MCG TABLET (FP) PO SCH (10:00)
[2023-12-25 10:15] LABS: BASO % 0.1 % (0-2.0); EOS % 1.9 % (0-4.5); HEMATOCRIT 31.4 % (32.4-45.2); HEMOGLOBIN 10.1 GM/dL (10.7-15.3); LYMPH % 21.2 % (8-40); MCH 28.4 pg (25.7-33.7); MCHC 32.1 g/dl (32.0-36.0); MEAN CELL VOLUME 88.3 fl (80-96); MEAN PLT VOLUME 10.5 fl (7.5-11.1); MONO % 8.2 % (3.8-10.2); NEUT % 68.6 % (42.8-82.8); PLATELET COUNT 99 10^3/uL (134-434); RBC 3.55 M/mm3 (3.60-5.2); RDW 16.1 % (11.6-15.6); WHITE BLOOD COUNT 3.5 K/mm3 (4.0-10.0)
[2023-12-25 10:25] LABS: POTASSIUM 4.9 mmol/L (3.5-5.1)
[2023-12-25 10:33] LABS: CALCIUM 8.5 mg/dL (8.5-10.1)
[2023-12-25 10:34] LABS: ALBUMIN 2.7 g/dl (3.4-5.0); BLOOD UREA NITROGEN 22.1 mg/dL (7-18)
[2023-12-25 10:37] LABS: CREATININE 1.4 mg/dL (0.55-1.3)
[2023-12-25 10:38] LABS: BILIRUBIN,TOTAL 0.9 mg/dL (0.2-1); TOT PROT 6.3 g/dl (6.4-8.2)
[2023-12-25] MEDS: FAMOTIDINE 20 MG TABLET PO SCH (11:38)
[2023-12-25] MEDS: CHOLECALCIFEROL (VIT D3) 1,000 UNIT (25 MCG) TABLET PO SCH (11:39)
[2023-12-25] MEDS: PANTOPRAZOLE 40 MG TABLET PO SCH (11:39)
[2023-12-25] MEDS: CLOPIDOGREL BISULFATE 75 MG TABLET (FP) PO SCH (11:39)
[2023-12-25] MEDS: ACETAMINOPHEN 325 MG TABLET (FP) PO PRN (11:40)
[2023-12-25] MEDS: CYANOCOBALAMIN 1,000 MCG TABLET (FP) PO SCH (11:43)
[2023-12-25] MEDS: POLYETHYLENE GLYCOL (HEALTHYLAX) 3350 17 GM PACKET PO SCH (14:57)
[2023-12-25] MEDS ORDERED: ACETAMINOPHEN 325 MG TABLET (FP) PO PRN (16:51)
[2023-12-25 17:06] LABS: IG A QN SERUM. 421 mg/dL (64-422)
[2023-12-25] MEDS ORDERED: LIDOCAINE 4% PATCH TP SCH (18:30)
[2023-12-25] MEDS ORDERED: ACETAMINOPHEN 325 MG TABLET (FP) PO SCH (18:30)
[2023-12-25] MEDS: LIDOCAINE 4% PATCH TP SCH (18:47)
[2023-12-25] MEDS: CYCLOBENZAPRINE HCL 5 MG TABLET PO ONE (18:50)
[2023-12-25] MEDS: ACETAMINOPHEN 1000 MG/100 ML BAG IVPB ONE (18:50)
[2023-12-25] MEDS: LIDOCAINE PATCH REMOVAL MC SCH (21:17)
[2023-12-25] MEDS: ACETAMINOPHEN 325 MG TABLET (FP) PO SCH (23:58)
[2023-12-26] MEDS: MAGNESIUM HYDROX 2400MG/30ML ORAL SUSPENSION 30 ML CUP PO SCH (10:00)
[2023-12-26 17:06] LABS: FREE KAPPA,SERUM 56.6 mg/L (3.3-19.4)
[2023-12-27] MEDS: CEFTRIAXONE 1 GM in DEXTROSE 5%-WATER - 50 ML IVPB SCH (09:49)
[2023-12-27] MEDS: LIDOCAINE 4% PATCH TP SCH (11:54)
[2023-12-27] MEDS: LIDOCAINE PATCH REMOVAL MC SCH (21:46)
[2023-12-28] MEDS: QUEtiapine FUMARATE 25 MG TABLET PO ONE (03:24)
[2023-12-28 07:48] LABS: HEMATOCRIT 32.2 % (32.4-45.2); HEMOGLOBIN 10.5 GM/dL (10.7-15.3); MCH 28.7 pg (25.7-33.7); MCHC 32.6 g/dl (32.0-36.0); MEAN PLT VOLUME 10.1 fl (7.5-11.1); PLATELET COUNT 110 10^3/uL (134-434); RBC 3.66 M/mm3 (3.60-5.2); RDW 16.1 % (11.6-15.6); WHITE BLOOD COUNT 4.2 K/mm3 (4.0-10.0)
[2023-12-28 07:56] LABS: POTASSIUM 4.9 mmol/L (3.5-5.1)
[2023-12-28 07:59] LABS: CALCIUM 8.7 mg/dL (8.5-10.1)
[2023-12-28 08:03] LABS: BLOOD UREA NITROGEN 29.5 mg/dL (7-18); CREATININE 1.9 mg/dL (0.55-1.3)
[2023-12-28 08:04] LABS: BILIRUBIN,TOTAL 0.6 mg/dL (0.2-1); TOT PROT 6.7 g/dl (6.4-8.2)
[2023-12-28] MEDS: SODIUM CHLORIDE 0.9% 500 ML INFUS.BAG IV ONE (17:15)
[2023-12-28] MEDS: INSULIN (NOVOLOG) ASPART 100 UNITS/ML 10ML VIAL SQ SCH (17:16)
[2023-12-28] MEDS: metroNIDAZOLE 250 MG TABLET PO ONE (18:20)
[2023-12-28] MEDS: SODIUM CHLORIDE 1,000 ML IV SCH (18:21)
[2023-12-28] MEDS: QUEtiapine FUMARATE 25 MG TABLET PO SCH (21:29)
[2023-12-28] MEDS: INSULIN (LEVEMIR) 100 UNITS/ML UNITS SQ SCH (21:37)
[2023-12-28] MEDS ORDERED: INSULIN (LEVEMIR) 100 UNITS/ML UNITS SQ SCH (22:00)
[2023-12-28] MEDS: MELATONIN 5 MG TABLETS PO SCH (22:47)
[2023-12-28] MEDS: metroNIDAZOLE 250 MG TABLET PO SCH (23:01)
[2023-12-29 05:10] VITALS: BP 142/70; PULSE 108; TEMP 97.8
[2023-12-29] MEDS ORDERED: INSULIN ASPART SLIDING SCALE (NOVOLOG) 1 VIAL SQ ONE (07:42)
[2023-12-29] MEDS ORDERED: INSULIN (LEVEMIR) 100 UNITS/ML UNITS SQ ONE (07:42)
[2023-12-29 07:52] LABS: HEMATOCRIT 32.2 % (32.4-45.2); HEMOGLOBIN 10.3 GM/dL (10.7-15.3); MCH 28.3 pg (25.7-33.7); MCHC 31.9 g/dl (32.0-36.0); MEAN CELL VOLUME 88.7 fl (80-96); PLATELET COUNT 115 10^3/uL (134-434); RBC 3.63 M/mm3 (3.60-5.2); RDW 15.9 % (11.6-15.6); WHITE BLOOD COUNT 4.4 K/mm3 (4.0-10.0)
[2023-12-29 08:11] LABS: POTASSIUM 4.5 mmol/L (3.5-5.1)
[2023-12-29 08:14] LABS: BLOOD UREA NITROGEN 26.9 mg/dL (7-18); CALCIUM 8.3 mg/dL (8.5-10.1)
[2023-12-29 08:18] LABS: CREATININE 1.9 mg/dL (0.55-1.3)
[2023-12-30 14:54] VITALS: BMI 42.5
== END 2023-12-29 11:44 | disposition home or self-care (01) | DRG 809 ==
LOC: JER 01:29 → JERBED 05:15 → OBSVTOIN 07:45 → J4S 11:52 → J6S 12-24 14:15
PROVIDERS: ADMIT Internal Medicine; ATTEND Internal Medicine
DX: D61.818 Other pancytopenia (principal); I13.0 Hypertensive heart and chronic kidney disease with heart failure and stage 1 through stage 4 chronic kidney disease, or unspecified chronic kidney disease; Z68.42 Body mass index [BMI] 45.0-49.9, adult; I50.32 Chronic diastolic (congestive) heart failure; N17.9 Acute kidney failure, unspecified; N39.0 Urinary tract infection, site not specified; I69.351 Hemiplegia and hemiparesis following cerebral infarction affecting right dominant side; K57.92 Diverticulitis of intestine, part unspecified, without perforation or abscess without bleeding; M62.81 Muscle weakness (generalized); J44.9 Chronic obstructive pulmonary disease, unspecified; M06.9 Rheumatoid arthritis, unspecified; G20.A1 Parkinson's disease without dyskinesia, without mention of fluctuations; D69.6 Thrombocytopenia, unspecified; E78.5 Hyperlipidemia, unspecified; I25.10 Atherosclerotic heart disease of native coronary artery without angina pectoris; G43.909 Migraine, unspecified, not intractable, without status migrainosus; K21.9 Gastro-esophageal reflux disease without esophagitis; D64.9 Anemia, unspecified; B96.20 Unspecified Escherichia coli [E. coli] as the cause of diseases classified elsewhere; B96.1 Klebsiella pneumoniae [K. pneumoniae] as the cause of diseases classified elsewhere; G47.33 Obstructive sleep apnea (adult) (pediatric); E11.22 Type 2 diabetes mellitus with diabetic chronic kidney disease; N18.9 Chronic kidney disease, unspecified; K59.00 Constipation, unspecified; J45.909 Unspecified asthma, uncomplicated; E66.01 Morbid (severe) obesity due to excess calories; E11.40 Type 2 diabetes mellitus with diabetic neuropathy, unspecified; H54.40 Blindness, one eye, unspecified eye; Z86.718 Personal history of other venous thrombosis and embolism; W18.30XA Fall on same level, unspecified, initial encounter; Y93.9 Activity, unspecified; Y92.098 Other place in other non-institutional residence as the place of occurrence of the external cause; Y99.9 Unspecified external cause status; Z85.51 Personal history of malignant neoplasm of bladder
CPT/HCPCS: 0241U-QW; 36415; 70450-TC; 71045-TC-FY; 72125-TC; 72128-TC; 72131-TC; 72170-TC-FY; 73502-TC-LT-FY; 73552-TC-LT-FY; 73562-TC-LT-FY; 73590-TC-LT-FY; 74176-TC; 80048; 80053; 81003; 82272; 82607; 82728; 82746; 82747; 82784; 82962; 83540; 83550; 83615; 83883; 84155; 84165; 84439; 84443; 84484; 85014; 85025; 85027; 85045; 85610; 85730; 86140; 86850; 86900; 86901; 87086; 87186; 88300-TC; 93005; 93010; 93306-TC; 97116-GP; 97162-GP; 99285-25; G0378; J0131

== ENCOUNTER 2024-01-28 17:53 | Inpatient (IN) | payer OTHER ==
[2024-01-28] MEDS ORDERED: ACETAMINOPHEN INJECTION 100 ML IVPB ONE (19:10)
[2024-01-28] MEDS ORDERED: MAG HYDROX/AL HYDROX/SIMETH 30 ML UNIT-DOSE CUP ONE (19:10)
[2024-01-28] MEDS: MAG HYDROX/AL HYDROX/SIMETH 30 ML UNIT-DOSE CUP PO ONE (19:17)
[2024-01-28] MEDS: SODIUM CHLORIDE 0.9% 500 ML INFUS.BAG IV ONE (19:19)
[2024-01-28] MEDS: ACETAMINOPHEN 1000 MG/100 ML BAG IVPB ONE (19:19)
[2024-01-28] MEDS ORDERED: FAMOTIDINE 20 MG/50 ML IVPB 20 MG/50 ML MG IVPB ONE (19:23)
[2024-01-28 19:31] LABS: BASO % 0.6 % (0-2.0); HEMATOCRIT 34.5 % (32.4-45.2); HEMOGLOBIN 11.1 GM/dL (10.7-15.3); LYMPH % 23.7 % (8-40); MCH 28.7 pg (25.7-33.7); MCHC 32.1 g/dl (32.0-36.0); MEAN CELL VOLUME 89.6 fl (80-96); MEAN PLT VOLUME 10.2 fl (7.5-11.1); MONO % 10.3 % (3.8-10.2); NEUT % 63.4 % (42.8-82.8); PLATELET COUNT 116 10^3/uL (134-434); RBC 3.85 M/mm3 (3.60-5.2); RDW 16.5 % (11.6-15.6); WHITE BLOOD COUNT 4.5 K/mm3 (4.0-10.0)
[2024-01-28 19:35] LABS: INR 1.16 (0.83-1.09); PROTHROMBIN TIME (PATIENT) 13.1 SEC (9.7-13.0)
[2024-01-28 19:38] LABS: ACTIVATED PTT 32.2 SECONDS (25.2-36.5)
[2024-01-28 19:40] LABS: POTASSIUM 4.1 mmol/L (3.5-5.1)
[2024-01-28 19:42] LABS: ALBUMIN 3.3 g/dl (3.4-5.0); BLOOD UREA NITROGEN 26.7 mg/dL (7-18); CALCIUM 8.6 mg/dL (8.5-10.1); MAGNESIUM 1.8 mg/dL (1.8-2.4)
[2024-01-28 19:45] LABS: CREATININE 1.9 mg/dL (0.55-1.3); PHOSPHOROUS 2.8 mg/dL (2.5-4.9)
[2024-01-28 19:46] LABS: BILIRUBIN,TOTAL 0.6 mg/dL (0.2-1); TOT PROT 6.7 g/dl (6.4-8.2)
[2024-01-28 19:59] LABS: LACTIC ACID 2.2 mmol/L (0.4-2.0)
[2024-01-28 20:00] LABS: *STOOL FOR OCCULT BLOOD NEGATIVE (NEGATIVE)
[2024-01-28 20:02] LABS: EPI CELLS 9 /uL (0-25.1); HYALINE CASTS 1 /uL (0-3.1); URINE APPEARANCE TURBID; URINE BACTERIA >9,000 /uL (0-1359); URINE BILIRUBIN NEGATIVE (NEGATIVE); URINE COLOR YELLOW; URINE GLUCOSE (UA) NEGATIVE (NEGATIVE); URINE KETONE NEGATIVE (NEGATIVE); URINE LEUK ESTERASE 3+ (NEGATIVE); URINE NITRITE NEGATIVE (NEGATIVE); URINE PROTEIN 1+ (NEGATIVE); URINE RBC 127 /uL (0-23.9); URINE UROBILINOGEN 0.2 mg/dL (0.2-1.0); URINE WBC 2741 /uL (0-25.8)
[2024-01-28] MEDS: FAMOTIDINE 20 MG/50 ML IVPB 20 MG/50 ML MG IVPB ONE (20:08)
[2024-01-28] MEDS ORDERED: CEFTRIAXONE 1 GM/50 ML BAG ONE (21:55)
[2024-01-28] MEDS: CEFTRIAXONE 1 GM in DEXTROSE 5%-WATER - 50 ML IVPB ONE (22:00)
[2024-01-28] MEDS ORDERED: MELATONIN 5 MG TABLETS ONE (22:19)
[2024-01-28] MEDS: MELATONIN 5 MG TABLETS PO ONE (22:23)
[2024-01-29] MEDS ORDERED: ACETAMINOPHEN 325 MG TABLET (FP) ONE (06:20)
[2024-01-29] MEDS: ACETAMINOPHEN 325 MG TABLET (FP) PO PRN (06:22)
[2024-01-29] MEDS: INSULIN ASPART SLIDING SCALE (NOVOLOG) 1 VIAL SQ SCH ×2 (07:21→16:45)
[2024-01-29 07:51] LABS: BLOOD UREA NITROGEN 22.2 mg/dL (7-18)
[2024-01-29 07:54] LABS: CREATININE 1.5 mg/dL (0.55-1.3)
[2024-01-29 07:55] LABS: BILIRUBIN,TOTAL 0.9 mg/dL (0.2-1)
[2024-01-29 07:56] LABS: TOT PROT 6.1 g/dl (6.4-8.2)
[2024-01-29] MEDS ORDERED: hydrOXYzine PAMOATE 25 MG CAPSULE (FP) PO PRN (08:06)
[2024-01-29 08:08] LABS: HEMATOCRIT 31.9 % (32.4-45.2); HEMOGLOBIN 10.4 GM/dL (10.7-15.3); MCH 29.1 pg (25.7-33.7); MCHC 32.7 g/dl (32.0-36.0); MEAN CELL VOLUME 89.1 fl (80-96); MEAN PLT VOLUME 10.7 fl (7.5-11.1); PLATELET COUNT 103 10^3/uL (134-434); RBC 3.58 M/mm3 (3.60-5.2); RDW 16.3 % (11.6-15.6); WHITE BLOOD COUNT 4.6 K/mm3 (4.0-10.0)
[2024-01-29] MEDS ORDERED: CLOPIDOGREL BISULFATE 75 MG TABLET (FP) ONE (10:54)
[2024-01-29] MEDS ORDERED: DOCUSATE SODIUM 100 MG CAPSULE (FP) PO ONE (10:54)
[2024-01-29] MEDS ORDERED: PREGABALIN 50 MG CAPSULE ONE (10:54)
[2024-01-29] MEDS ORDERED: PANTOPRAZOLE 40 MG TABLET PO ONE (10:54)
[2024-01-29] MEDS ORDERED: INSULIN (LEVEMIR) 100 UNITS/ML UNITS SQ ONE (10:55)
[2024-01-29] MEDS: INSULIN (LEVEMIR) 100 UNITS/ML UNITS SQ SCH (11:11)
[2024-01-29] MEDS: CLOPIDOGREL BISULFATE 75 MG TABLET (FP) PO SCH (11:11)
[2024-01-29] MEDS: PREGABALIN 50 MG CAPSULE PO SCH (11:11)
[2024-01-29] MEDS: DOCUSATE SODIUM 100 MG CAPSULE (FP) PO SCH (11:11)
[2024-01-29] MEDS: PANTOPRAZOLE 40 MG TABLET PO SCH (11:12)
[2024-01-29] MEDS: CYANOCOBALAMIN 1,000 MCG TABLET (FP) PO SCH (11:12)
[2024-01-29] MEDS ORDERED: ACETAMINOPHEN 325 MG TABLET (FP) PO PRN (16:26)
[2024-01-29] MEDS ORDERED: oxyCODONE HCL 5 MG TABLET PO PRN (16:26)
[2024-01-29 17:56] VITALS: BMI 39.2
[2024-01-29] MEDS: MELATONIN 5 MG TABLETS PO ONE (22:33)
[2024-01-29] MEDS: ROSUVASTATIN CA 10 MG TABLET PO SCH (22:38)
[2024-01-29] MEDS: BACLOFEN 10 MG TABLET (FP) PO SCH (22:39)
[2024-01-30] MEDS: HALOPERIDOL LACTATE 5 MG/ML IM ONE (04:40)
[2024-01-30] MEDS: LIDOCAINE 5% TOPICAL PATCH TP SCH (10:48)
[2024-01-30 10:53] LABS: BASO % 0.2 % (0-2.0); EOS % 0.3 % (0-4.5); HEMATOCRIT 33.1 % (32.4-45.2); HEMOGLOBIN 10.7 GM/dL (10.7-15.3); LYMPH % 13.1 % (8-40); MCH 28.6 pg (25.7-33.7); MCHC 32.4 g/dl (32.0-36.0); MEAN CELL VOLUME 88.2 fl (80-96); MONO % 10.4 % (3.8-10.2); PLATELET COUNT 110 10^3/uL (134-434); RBC 3.76 M/mm3 (3.60-5.2); RDW 16.6 % (11.6-15.6); WHITE BLOOD COUNT 4.8 K/mm3 (4.0-10.0)
[2024-01-30 11:33] LABS: POTASSIUM 4.6 mmol/L (3.5-5.1)
[2024-01-30 11:36] LABS: CALCIUM 8.4 mg/dL (8.5-10.1)
[2024-01-30 11:37] LABS: BLOOD UREA NITROGEN 22.5 mg/dL (7-18)
[2024-01-30 11:39] LABS: CREATININE 1.7 mg/dL (0.55-1.3)
[2024-01-30] MEDS: traMADol HCL 50 MG TABLET PO PRN (16:01)
[2024-01-30] MEDS: ACETAMINOPHEN 500 MG TABLET (FP) PO SCH (16:03)
[2024-01-30] MEDS: LIDOCAINE PATCH REMOVAL MC SCH (21:46)
[2024-01-30] MEDS: MELATONIN 5 MG TABLETS PO SCH (21:46)
[2024-01-31 22:19] VITALS: RESP 20
[2024-01-31] MEDS: INSULIN (LEVEMIR) 100 UNITS/ML UNITS SQ SCH (22:41)
[2024-02-01 09:55] LABS: BASO % 0.3 % (0-2.0); EOS % 0.2 % (0-4.5); HEMATOCRIT 33.4 % (32.4-45.2); HEMOGLOBIN 10.5 GM/dL (10.7-15.3); LYMPH % 15.4 % (8-40); MCH 28.2 pg (25.7-33.7); MCHC 31.6 g/dl (32.0-36.0); MEAN CELL VOLUME 89.3 fl (80-96); MEAN PLT VOLUME 10.3 fl (7.5-11.1); MONO % 7.1 % (3.8-10.2); PLATELET COUNT 117 10^3/uL (134-434); RBC 3.73 M/mm3 (3.60-5.2); RDW 16.3 % (11.6-15.6); WHITE BLOOD COUNT 5.2 K/mm3 (4.0-10.0)
[2024-02-01 10:15] LABS: POTASSIUM 4.5 mmol/L (3.5-5.1)
[2024-02-01 10:27] LABS: CALCIUM 8.6 mg/dL (8.5-10.1)
[2024-02-01 10:28] LABS: BLOOD UREA NITROGEN 23.1 mg/dL (7-18)
[2024-02-01 10:31] LABS: BILIRUBIN,TOTAL 0.7 mg/dL (0.2-1); CREATININE 1.7 mg/dL (0.55-1.3)
[2024-02-01 10:32] LABS: TOT PROT 6.2 g/dl (6.4-8.2)
[2024-02-01 15:35] VITALS: BP 110/58; PULSE 77; TEMP 97.5
== END 2024-02-01 18:32 | DRG 552 ==
LOC: JER 17:53 → JERBED 22:01 → OBSVTOIN 01-29 16:42 → J8W 01-29 17:28
PROVIDERS: ADMIT Internal Medicine; ATTEND Nurse Practitioner Acute Care
DX: S32.2XXA Fracture of coccyx, initial encounter for closed fracture (principal); D61.818 Other pancytopenia; G81.91 Hemiplegia, unspecified affecting right dominant side; K92.1 Melena; E66.9 Obesity, unspecified; Z68.39 Body mass index [BMI] 39.0-39.9, adult; E78.5 Hyperlipidemia, unspecified; G20.A1 Parkinson's disease without dyskinesia, without mention of fluctuations; R29.6 Repeated falls; D69.6 Thrombocytopenia, unspecified; M54.9 Dorsalgia, unspecified; I13.10 Hypertensive heart and chronic kidney disease without heart failure, with stage 1 through stage 4 chronic kidney disease, or unspecified chronic kidney disease; E11.22 Type 2 diabetes mellitus with diabetic chronic kidney disease; N18.2 Chronic kidney disease, stage 2 (mild); J30.9 Allergic rhinitis, unspecified; R26.81 Unsteadiness on feet; K21.9 Gastro-esophageal reflux disease without esophagitis; G89.29 Other chronic pain; H54.40 Blindness, one eye, unspecified eye; M06.9 Rheumatoid arthritis, unspecified; Z85.51 Personal history of malignant neoplasm of bladder; W18.30XA Fall on same level, unspecified, initial encounter; Y93.9 Activity, unspecified; Y92.9 Unspecified place or not applicable; Y99.9 Unspecified external cause status; Z96.651 Presence of right artificial knee joint
CPT/HCPCS: 0241U-QW; 36415; 71045-TC-FY; 72192-TC; 80048; 80053; 81003; 82272; 82962; 83036; 83605; 83690; 83735; 84100; 84484; 85025; 85027; 85610; 85730; 86850; 86900; 86901; 87040; 87086; 87186; 93005; 93010; 93970-TC; 97116-GP; 97161-GP; 99285-25; G0378; J0131; J0475

== ENCOUNTER 2024-03-26 14:20 | Inpatient (IN) | payer OTHER ==
[2024-03-26] MEDS ORDERED: ACETAMINOPHEN 325 MG TABLET (FP) PO PRN (18:25)
[2024-03-26] MEDS ORDERED: hydrOXYzine PAMOATE 25 MG CAPSULE (FP) PO PRN (18:25)
[2024-03-26] MEDS ORDERED: INSULIN (LEVEMIR) 100 UNITS/ML UNITS SQ SCH (22:00)
[2024-03-26] MEDS: ROSUVASTATIN CA 10 MG TABLET PO SCH (22:13)
[2024-03-26] MEDS: MELATONIN 5 MG TABLETS PO SCH (22:13)
[2024-03-26] MEDS: PREGABALIN 50 MG CAPSULE PO SCH (22:13)
[2024-03-26] MEDS: DOCUSATE SODIUM 100 MG CAPSULE (FP) PO SCH (22:13)
[2024-03-26] MEDS: BACLOFEN 10 MG TABLET (FP) PO SCH (22:15)
[2024-03-26] MEDS: LIDOCAINE PATCH REMOVAL MC SCH (22:16)
[2024-03-26] MEDS: INSULIN (LEVEMIR) 100 UNITS/ML UNITS SQ SCH (22:41)
[2024-03-27 00:42] VITALS: RESP 18; BMI 32.3
[2024-03-27] MEDS: INSULIN (NOVOLOG) ASPART 100 UNITS/ML 10ML VIAL SQ SCH (06:21)
[2024-03-27] MEDS: INSULIN ASPART SLIDING SCALE (NOVOLOG) 1 VIAL SQ SCH (06:21)
[2024-03-27] MEDS ORDERED: INSULIN (NOVOLOG) ASPART 100 UNITS/ML 10ML VIAL SQ SCH (07:00)
[2024-03-27] MEDS ORDERED: INSULIN ASPART SLIDING SCALE (NOVOLOG) 1 VIAL SQ SCH (07:00)
[2024-03-27] MEDS: CLOPIDOGREL BISULFATE 75 MG TABLET (FP) PO SCH (10:20)
[2024-03-27] MEDS: LIDOCAINE 5% TOPICAL PATCH TP SCH (10:20)
[2024-03-27] MEDS: MULTIVITAMINS (DAILY MVI) TABLET (FP) PO SCH (10:20)
[2024-03-27] MEDS: PANTOPRAZOLE 40 MG TABLET PO SCH (10:20)
[2024-03-27] MEDS: ACETAMINOPHEN 325 MG TABLET (FP) PO PRN (11:32)
[2024-03-28] MEDS ORDERED: INSULIN (NOVOLOG MIX 70/30) 100 UNITS/ML MDV SQ ONE (11:30)
[2024-03-30 15:55] VITALS: BP 120/65; PULSE 110; TEMP 98.4
== END 2024-03-30 17:43 | DRG 57 ==
LOC: JER 14:20 → INTOOBSV 16:45 → UNDOADMOB 16:45 → JERBED 16:45 → J6S 19:00 → OBSVTOIN 03-27 10:07
PROVIDERS: ADMIT Internal Medicine; ATTEND Internal Medicine
DX: G20.A1 Parkinson's disease without dyskinesia, without mention of fluctuations (principal); I69.351 Hemiplegia and hemiparesis following cerebral infarction affecting right dominant side; Z60.9 Problem related to social environment, unspecified; E11.9 Type 2 diabetes mellitus without complications; K59.00 Constipation, unspecified; E78.5 Hyperlipidemia, unspecified; Z79.4 Long term (current) use of insulin; M06.9 Rheumatoid arthritis, unspecified; N18.2 Chronic kidney disease, stage 2 (mild)
CPT/HCPCS: 82962; 97116-GP; 97161-GP; 99285-25; G0378; J0475

== ENCOUNTER 2024-12-10 12:29 | Inpatient (IN) | payer OTHER ==
[2024-12-10 13:47] LABS: HEMATOCRIT 36.3 % (34.1-44.9); MCHC 30.3 g/dl (32.2-35.5); MEAN CELL VOLUME 93.1 fl (79.4-94.8); MEAN PLT VOLUME 11.9 fl (9.4-12.3); PLATELET COUNT 91 x10^3/uL (182-369); RDW 15.9 % (12.5-17.0)
[2024-12-10 13:54] LABS: INR 1.32 (0.83-1.09); PROTHROMBIN TIME (PATIENT) 14.5 SEC (9.7-13.0)
[2024-12-10 13:56] LABS: ACTIVATED PTT 24.5 SECONDS (25.2-36.5)
[2024-12-10 14:07] LABS: CHLORIDE 109 mmol/L (98-107); POTASSIUM 5.5 mmol/L (3.5-5.1); SODIUM 142 mmol/L (136-145)
[2024-12-10 14:08] LABS: ALBUMIN 2.7 g/dl (3.4-5.0); ANION GAP 8 mmol/L (4-13); CALCIUM 8.4 mg/dL (8.5-10.1); CO2 25 mmol/L (21-32)
[2024-12-10 14:09] LABS: BLOOD UREA NITROGEN 29.9 mg/dL (7-18)
[2024-12-10 14:10] LABS: GLUCOSE,RANDOM 181 mg/dL (74-106)
[2024-12-10 14:11] LABS: SGOT/AST 37 U/L (15-37); SGPT/ALT 24 U/L (13-61)
[2024-12-10 14:13] LABS: CHOLESTEROL 68 mg/dL (50-200); TOT PROT 6.7 g/dl (6.4-8.2)
[2024-12-10 14:14] LABS: BILIRUBIN,TOTAL 1.1 mg/dL (0.2-1); LDL CHOLESTEROL (ONLY SJRH) 15 mg/dL (5-100)
[2024-12-10 14:15] LABS: ALK PHOS 203 U/L (45-117)
[2024-12-10 14:16] LABS: HDL CHOLESTEROL 53 mg/dL (40-60)
[2024-12-10 15:39] LABS: EPI CELLS 2 /uL (0-25.1); HYALINE CASTS 0 /uL (0-3.1); URINE APPEARANCE CLOUDY; URINE BACTERIA >9,000 /uL (0-1359); URINE BILIRUBIN NEGATIVE (NEGATIVE); URINE COLOR YELLOW; URINE GLUCOSE (UA) NEGATIVE (NEGATIVE); URINE KETONE NEGATIVE (NEGATIVE); URINE LEUK ESTERASE 3+ (NEGATIVE); URINE NITRITE NEGATIVE (NEGATIVE); URINE PROTEIN 2+ (NEGATIVE); URINE RBC 64 /uL (0-23.9); URINE WBC 2416 /uL (0-25.8)
[2024-12-10] MEDS ORDERED: INSULIN ASPART SLIDING SCALE (NOVOLOG) 1 VIAL SQ ONE (16:54)
[2024-12-10] MEDS: INSULIN ASPART SLIDING SCALE (NOVOLOG) 1 VIAL SQ SCH (17:00)
[2024-12-10] MEDS ORDERED: CEFTRIAXONE 1 G/50 ML PREMIX 50 ML IVPB ONE (17:01)
[2024-12-10] MEDS: CEFTRIAXONE 1 GM in DEXTROSE 5%-WATER - 100 ML IVPB ONE (17:06)
[2024-12-10 21:09] VITALS: BMI 43.4
[2024-12-10] MEDS: HEPARIN NA (PORCINE) 5,000 UNITS/ML 1ML VIAL SQ SCH (22:20)
[2024-12-10] MEDS: ATORVASTATIN CA 20 MG TABLET (FP) PO SCH (22:23)
[2024-12-10] MEDS: BACLOFEN 10 MG TABLET (FP) PO SCH (22:24)
[2024-12-10] MEDS: traMADol HCL 50 MG TABLET PO PRN (22:24)
[2024-12-10] MEDS: PREGABALIN 50 MG CAPSULE PO SCH (22:25)
[2024-12-10] MEDS: SENNOSIDES 8.6MG TABLET (FP) PO SCH (22:27)
[2024-12-10 23:45] LABS: EPI CELLS 6 /uL (0-25.1); HYALINE CASTS 1 /uL (0-3.1); PH,URINE 6.5 (5.0-8.0); URINE APPEARANCE Error; URINE BACTERIA >9,000 /uL (0-1359); URINE BILIRUBIN NEGATIVE (NEGATIVE); URINE COLOR YELLOW; URINE GLUCOSE (UA) NEGATIVE (NEGATIVE); URINE KETONE NEGATIVE (NEGATIVE); URINE LEUK ESTERASE 3+ (NEGATIVE); URINE NITRITE NEGATIVE (NEGATIVE); URINE PROTEIN 2+ (NEGATIVE); URINE RBC 74 /uL (0-23.9); URINE UROBILINOGEN 0.2 mg/dL (0.2-1.0)
[2024-12-11] MEDS: ACETAMINOPHEN 325 MG TABLET (FP) PO PRN (02:09)
[2024-12-11 08:56] LABS: PLATELET COUNT 75 x10^3/uL (182-369)
[2024-12-11 08:58] LABS: HEMATOCRIT 33.1 % (34.1-44.9); MCHC 30.2 g/dl (32.2-35.5); MEAN CELL VOLUME 93.2 fl (79.4-94.8); MEAN PLT VOLUME 12.1 fl (9.4-12.3); RDW 16.2 % (12.5-17.0)
[2024-12-11] MEDS: CLOPIDOGREL BISULFATE 75 MG TABLET (FP) PO SCH (09:14)
[2024-12-11] MEDS: CEFTRIAXONE 1 G/50 ML PREMIX 50 ML IVPB SCH (09:14)
[2024-12-11] MEDS: PANTOPRAZOLE 40 MG TABLET PO SCH (09:14)
[2024-12-11 09:26] LABS: POTASSIUM 4.5 mmol/L (3.5-5.1)
[2024-12-11 09:29] LABS: CALCIUM 8.4 mg/dL (8.5-10.1)
[2024-12-11 09:30] LABS: ALBUMIN 2.4 g/dl (3.4-5.0); BLOOD UREA NITROGEN 38.1 mg/dL (7-18); MAGNESIUM 1.8 mg/dL (1.8-2.4)
[2024-12-11 09:33] LABS: CREATININE 3.1 mg/dL (0.55-1.3); PHOSPHOROUS 4.3 mg/dL (2.5-4.9)
[2024-12-11 09:35] LABS: BILIRUBIN,TOTAL 0.7 mg/dL (0.2-1); TOT PROT 5.7 g/dl (6.4-8.2)
[2024-12-11] MEDS ORDERED: ENOXAPARIN NA (PORCINE) 40 MG/0.4 ML DISP.SYRIN SQ SCH (10:00)
[2024-12-11] MEDS ORDERED: SODIUM CHLORIDE 1,000 ML IV SCH (10:45)
[2024-12-11] MEDS: PIPERACILLIN/TAZOB 2.25 GM 2.25 GM/50 ML BAG IVPB SCH (11:29)
[2024-12-11] MEDS: SODIUM CHLORIDE 1,000 ML IV SCH (11:29)
[2024-12-11] MEDS: DOXYCYCLINE INJECTION 100 MG in DEXTROSE 5%-WATER 100 ML IVPB ONE (13:10)
[2024-12-11] MEDS ORDERED: PIPERACILLIN/TAZOB 2.25 GM 2.25 GM in DEXTROSE 5%-WATER - 50 ML IVPB SCH (15:00)
[2024-12-11] MEDS: SODIUM CHLORIDE 1,000 ML IV STA ×2 (20:45→22:15)
[2024-12-11] MEDS ORDERED: PATIENT'S OWN MEDICATION (NON-FORMULARY) (Insulin Glargine,Hum.Rec.Anlog 100 UNITS/ML Ins) SQ SCH (22:00)
[2024-12-11] MEDS: INSULIN GLARGINE (LANTUS) 100 UNITS/ML UNITS SQ SCH (22:47)
[2024-12-11] MEDS: DOXYCYCLINE HYCLATE 100 MG CAPSULE PO ONE (22:48)
[2024-12-11] MEDS: DOXYCYCLINE MONOHYDRATE 25 MG/5 ML SUSPENSION PO ONE (22:49)
[2024-12-12 08:19] LABS: POTASSIUM 4.7 mmol/L (3.5-5.1)
[2024-12-12 08:26] LABS: ABSOLUTE IMMATURE GRANULOCYTES 0.06 x10^3/uL (0.0-0.031); BASOPHILS # 0.01 x10^3/uL (0.01-0.08); EOSINOPHIL % 0.4 % (0.7-5.8); EOSINOPHILS # 0.04 x10^3/uL (0.04-0.36); HEMATOCRIT 40.3 % (34.1-44.9); HEMOGLOBIN 11.6 g/dL (11.2-15.7); MCHC 28.8 g/dl (32.2-35.5); MEAN CELL VOLUME 95.5 fl (79.4-94.8); MONOCYTE # 0.47 x10^3/uL (0.24-0.86); MONOCYTE % 4.9 % (4.7-12.5); PLATELET COUNT 96 x10^3/uL (182-369); RDW 16.4 % (12.5-17.0)
[2024-12-12] MEDS ORDERED: VANCOMYCIN HCL 1,500 MG in DEXTROSE 5%-WATER - 500 ML IVPB SCH (08:30)
[2024-12-12 08:31] LABS: ALBUMIN 2.6 g/dl (3.4-5.0); BLOOD UREA NITROGEN 46.4 mg/dL (7-18); CALCIUM 8.5 mg/dL (8.5-10.1); MAGNESIUM 1.8 mg/dL (1.8-2.4)
[2024-12-12 08:35] LABS: CREATININE 3.3 mg/dL (0.55-1.3); PHOSPHOROUS 4.3 mg/dL (2.5-4.9)
[2024-12-12 08:36] LABS: BILIRUBIN,TOTAL 0.8 mg/dL (0.2-1); TOT PROT 6.9 g/dl (6.4-8.2)
[2024-12-12] MEDS ORDERED: VANCOMYCIN 500 MG in DEXTROSE 5%-WATER - 100 ML IVPB SCH ×2 (09:15→10:00)
[2024-12-12] MEDS ORDERED: VANCOMYCIN 500 MG in DEXTROSE 5%-WATER 100 ML IVPB SCH (10:00)
[2024-12-12] MEDS ORDERED: VANCOMYCIN HCL IN 5 % DEXTROSE 1,500 MG/300 ML BAG IVPB SCH (10:00)
[2024-12-12] MEDS: VITAMIN B COMP W-C 1 EA TABLET (NEPHRO-VITE) PO SCH (10:11)
[2024-12-12] MEDS: HYDROCHLOROTHIAZIDE 12.5 MG CAPSULE (FP) PO SCH (10:11)
[2024-12-12] MEDS ORDERED: DEXTROSE 5%-LACTATED RINGERS 1,000 ML IV SCH (10:30)
[2024-12-12] MEDS: DEXTROSE 5%-LACTATED RINGERS 1,000 ML IV SCH (11:05)
[2024-12-12] MEDS: PIPERACILLIN/TAZOB 2.25 GM 2.25 GM/50 ML BAG IVPB SCH (18:20)
[2024-12-13 07:53] LABS: ABSOLUTE IMMATURE GRANULOCYTES 0.04 x10^3/uL (0.0-0.031); BASOPHILS # 0.01 x10^3/uL (0.01-0.08); EOSINOPHILS # 0.06 x10^3/uL (0.04-0.36)
[2024-12-13 07:55] LABS: HEMATOCRIT 31.2 % (34.1-44.9); HEMOGLOBIN 9.1 g/dL (11.2-15.7); MCHC 29.2 g/dl (32.2-35.5); MEAN CELL VOLUME 94.5 fl (79.4-94.8); MONOCYTE % 8.2 % (4.7-12.5); PLATELET COUNT 72 x10^3/uL (182-369); RDW 16.3 % (12.5-17.0)
[2024-12-13 08:17] LABS: POTASSIUM 4.5 mmol/L (3.5-5.1)
[2024-12-13 08:36] LABS: BLOOD UREA NITROGEN 43.1 mg/dL (7-18); CALCIUM 8.1 mg/dL (8.5-10.1); MAGNESIUM 1.5 mg/dL (1.8-2.4)
[2024-12-13 08:37] LABS: PHOSPHOROUS 3.7 mg/dL (2.5-4.9)
[2024-12-13 08:38] LABS: BILIRUBIN,TOTAL 0.6 mg/dL (0.2-1); TOT PROT 5.3 g/dl (6.4-8.2)
[2024-12-13] MEDS: MEROPENEM 500 MG in DEXTROSE 5%-WATER 100 ML IVPB SCH (09:12)
[2024-12-13] MEDS: MAGNESIUM SULFATE IN WATER 2 GM/50 ML IVPB IVPB ONE (09:13)
[2024-12-13] MEDS: MEROPENEM-0.9% SODIUM CHLORIDE 500 MG/50 ML BAG IVPB SCH (14:13)
[2024-12-13] MEDS: DEXTROSE 5%-LACTATED RINGERS 1,000 ML IV SCH (14:13)
[2024-12-13] MEDS ORDERED: MEROPENEM 500 MG in DEXTROSE 5%-WATER 100 ML IVPB SCH (22:00)
[2024-12-14 08:19] LABS: HEMOGLOBIN 9.7 g/dL (11.2-15.7)
[2024-12-14 08:21] LABS: HEMATOCRIT 31.8 % (34.1-44.9); MCHC 30.5 g/dl (32.2-35.5); MEAN CELL VOLUME 89.8 fl (79.4-94.8); MEAN PLT VOLUME 12.7 fl (9.4-12.3); PLATELET COUNT 76 x10^3/uL (182-369); RDW 16.3 % (12.5-17.0)
[2024-12-14 08:44] LABS: POTASSIUM 4.2 mmol/L (3.5-5.1)
[2024-12-14 09:02] LABS: BLOOD UREA NITROGEN 42.7 mg/dL (7-18)
[2024-12-14 09:03] LABS: CALCIUM 8.5 mg/dL (8.5-10.1); MAGNESIUM 2.1 mg/dL (1.8-2.4)
[2024-12-14 09:06] LABS: CREATININE 2.8 mg/dL (0.55-1.3); PHOSPHOROUS 3.7 mg/dL (2.5-4.9)
[2024-12-14 09:07] LABS: BILIRUBIN,TOTAL 0.5 mg/dL (0.2-1); TOT PROT 5.5 g/dl (6.4-8.2)
[2024-12-14] MEDS: BISACODYL 10 MG SUPP.RECT PR ONE (12:19)
[2024-12-14] MEDS: MEROPENEM 500 MG in DEXTROSE 5%-WATER 100 ML IVPB SCH (20:00)
[2024-12-14] MEDS: MEROPENEM 500 MG in SODIUM CHLORIDE 50 ML IVPB SCH (21:40)
[2024-12-15 02:35] VITALS: PULSE 73; TEMP 98.6
[2024-12-15] MEDS ORDERED: MEROPENEM-0.9% SODIUM CHLORIDE 500 MG/50 ML BAG IVPB SCH (07:54)
[2024-12-15 08:18] VITALS: BP 120/51; RESP 16
== END 2024-12-15 09:26 | DRG 699 ==
LOC: JER 12:29 → JERBED 16:24 → J6S 19:51
PROVIDERS: ADMIT Internal Medicine; ATTEND Internal Medicine
DX: T83.593A Infection and inflammatory reaction due to other urinary stents, initial encounter (principal); I69.351 Hemiplegia and hemiparesis following cerebral infarction affecting right dominant side; N17.9 Acute kidney failure, unspecified; Z68.41 Body mass index [BMI] 40.0-44.9, adult; G20.A1 Parkinson's disease without dyskinesia, without mention of fluctuations; L89.612 Pressure ulcer of right heel, stage 2; N18.9 Chronic kidney disease, unspecified; B96.20 Unspecified Escherichia coli [E. coli] as the cause of diseases classified elsewhere; I12.9 Hypertensive chronic kidney disease with stage 1 through stage 4 chronic kidney disease, or unspecified chronic kidney disease; E11.22 Type 2 diabetes mellitus with diabetic chronic kidney disease; K21.9 Gastro-esophageal reflux disease without esophagitis; E66.01 Morbid (severe) obesity due to excess calories; M54.50 Low back pain, unspecified; H54.40 Blindness, one eye, unspecified eye; W18.30XA Fall on same level, unspecified, initial encounter; Y93.9 Activity, unspecified; Y92.122 Bedroom in nursing home as the place of occurrence of the external cause; Y99.9 Unspecified external cause status; Y84.8 Other medical procedures as the cause of abnormal reaction of the patient, or of later complication, without mention of misadventure at the time of the procedure; Z86.718 Personal history of other venous thrombosis and embolism; Z85.51 Personal history of malignant neoplasm of bladder
CPT/HCPCS: 0241U-QW; 36415; 70450-TC; 71045-TC-FY; 72125-TC; 72170-TC-FY; 73562-TC-RT-FY; 74176-TC; 80053; 80061; 81003; 82550; 82553; 82570; 82962; 83036; 83735; 84100; 84300; 84484; 85025; 85610; 85730; 86850; 86900; 86901; 87040; 87081; 87086; 87186; 93005; 93010; 97161-GP; 99285-25; J0475; J1644